=== PATIENT | female | born 1960 | race Caucasian/White ===

== ENCOUNTER 2017-07-22 20:54 | Emergency (ER) | payer MEDICARE, SELFPAY ==
[2017-07-22 20:54] VITALS: BP 117/71; PULSE 82; RESP 17; TEMP 36.7; O2SAT 94; BMI 27.3
--- NOTE | 2017-07-22 22:16 | EKG12_ITS ---
Test Reason : CP Blood Pressure : / mmHG Vent. Rate : 069 BPM Atrial Rate : 069 BPM P-R Int : 152 ms QRS Dur : 078 ms QT Int : 392 ms P-R-T Axes : 028 -04 019 degrees QTc Int : 420 ms Normal sinus rhythm Normal ECG Confirmed by JUAN ALBERTO DAVENPORT MD ([id number]), general expeditor MARGOTH ANTOINE ([id number]) on 07/25/2017 1:57:44 PM Referred By: Confirmed By:JUAN ALBERTO DAVENPORT MD
--- NOTE | 2017-07-22 22:16 | CT_ITS ---
STUDY: CT BRAIN WITHOUT CONTRAST REASON FOR EXAM: Female, 57 years old. Shortness of breath, dizziness, x2 days RADIATION DOSAGE (If Supplied By Facility): CTDIvol = ( 44.99 ) mGy, DLP = ( 779.24 ) mGycm TECHNIQUE: Transaxial CT imaging of the brain was performed without administration of intravenous contrast material. Individualized dose optimization techniques were used for this CT. COMPARISON: None. FINDINGS: Normal soft tissue structures. Normal calvarium. Normal size ventricles and extra-axial spaces for the patient's age. Normal white matter tracts of the cerebral hemispheres. Normal basal ganglia and thalami. Normal brainstem. Normal cerebellum. There is no intracranial hemorrhage. There are no findings of an acute ischemic infarction. Normal visualized paranasal sinuses. CT/Brain/Head without Contrast IMPRESSION: Normal unenhanced CT scan of the brain. Electronically Signed: Heladio Crook MD at 22:52 EDT , Service support ,
[2017-07-22] MEDS: Ondansetron ODT 4 MG Tablet PO (22:23)
[2017-07-22] MEDS: Meclizine HCl 25 MG Tablet PO (22:26)
[2017-07-22 22:32] LABS: Absolute Lymphocyte Count 1.99 X10^3/ul (0.83-4.51); Absolute Neutrophil Count 1.9 X10^3/uL (2.0-7.7); Basophil# 0.03 X10^3/uL; Basophil% 0.6 % (0-1); Eosinophil# 0.17 X10^3/uL; Eosinophils% 3.7 % (0-5); Hematocrit 36.9 % (37-47); Hemoglobin 12.2 g/dl (12.0-15.0); Lymphocyte # 1.99 X10^3/ul (4.0); Lymphocyte % 43.1 % (19-41); Mean Corp Hgb Conc 33.1 g/gl (32-36); Mean Corpuscular Hgb 28.4 pg (27.0-32.0); Mean Corpuscular Volume 85.8 fL (81-99); Monocyte# 0.54 X10^3/uL; Monocyte% 11.7 % (0-10); Neutrophil # 1.89 X10^3/uL (2.7-7.7); Neutrophil % 40.9 % (47-70); Platelet Count 218 K/mm3 (150-450); RBC Distribution Width SD 40.6 fl (35.1-43.9); White Blood Count 4.6 K/mm3 (4.4-11.0)
[2017-07-22 22:33] LABS: POSITIVE COUNT NO; POSITIVE DIFFERENTIAL NO; POSITIVE MORPHOLOGY NO
--- NOTE | 2017-07-22 22:33 | ED.VISSUMM ---
- ER Visit Summary Date of Service: 07/22/17 Chief Complaint: [Dizziness] History of Present Illness: The patient is a 57 F [who presents the emergency department complaining of dizziness. She states she has had 2 days of dizziness when she moves a certain way and then she gets nauseated. She has had mild associated shortness of breath as well. No cough no fever. She did hit her head on the corner of the car door 2 days ago right before the symptoms started. No numbness or tingling no speech difficulty. She has a history of vertigo but it was much worse than this. No chest pain. She is otherwise healthy. She does have chronic back problems but otherwise takes no medications. She has chronic swelling and pain in her left lower extremity which he states is unchanged] Physical Examination: [] Blood pressure 117/71 heart rate 82 respiratory rate 1794% on room air temperature 98.1 WN WD NAD PERRL EOMI MMM TMs clear NECK supple and nontender, no masses RRR no murmur rub or gallop, no peripheral edema, symmetric radial pulses CTAB no respiratory distress ABDOMEN is soft and nontender, normal bowel sounds, no distension, no rebound or guarding SKIN is warm and dry no rashes Symptoms are reproduced with movement of the head in either direction I am unable to assess for nystagmus as the patient closes her eyes repeatedly Alert and Oriented x3, CN II-XII in tact, no motor or sensory deficits, gait normal No lymphadenopathy Test Results: [] Emergency Department Course and Treatment: [She was given fluids meclizine and Zofran.] Treatment Plan: [] Disposition: [] Impression: [1. Head Injury 2. vertigo ] This note was generated with kooldiner dictation software. It may contain incorrect words, spelling, and punctuation that were not noted in review of the chart prior to signing ED Disposition - Plan for ED Patient: Chief Complaint: Dizziness Referrals: Elisha Penny MD [Primary Care Provider] -
[2017-07-22 22:43] LABS: D-Dimer Quantitative (DVT/PE) < 0.27 FEU/ug/m (0.27-0.49)
[2017-07-22 22:49] LABS: ALB/GLOB Ratio 1.2 RATIO (0.9-2.4); AST(SGOT) 13 U/L (15-37); Alanine Aminotransfer ALT/SGPT 16 U/L (13-56); Albumin, Serum 3.6 g/dL (3.2-5.0); Alkaline Phosphatase 111 U/L (45-117); Anion Gap 6 (5-15); BUN 17 mg/dL (7-18); BUN/Creat Ratio 28.8 RATIO (10-20); Calcium,Total 8.8 mg/dL (8.5-10.1); Chloride 108 mmol/L (98-107); Creatinine, Serum 0.59 mg/dL (0.55-1.02); EST Glomerular Filtration Rate 111 mL/min (>60); Est Glom Filt Rate - Afr Amer 135 mL/min (>60); Globulin 3.1 g/dL (2.2-4.2); Glucose 105 mg/dL (74-106); Potassium 3.7 mmol/L (3.5-5.1); Protein, Total 6.7 g/dL (6.4-8.2); Sodium Level 143 mmol/L (136-145)
[2017-07-22 23:05] VITALS: BP 118/82; PULSE 81; RESP 16; O2SAT 93
--- NOTE | 2017-07-22 23:13 | ED.DEP ---
ED Disposition - Plan for ED Patient: Chief Complaint: Dizziness Instructions: ED Vertigo Unspecified, ED Head Injury Closed Prescriptions: Ondansetron [Zofran Odt] 4 mg PO Q8H PRN PRN #10 tablet PRN Reason: Nausea Meclizine HCl [Antivert] 25 mg PO 4X/DAY PRN PRN #20 tablet PRN Reason: Dizziness Referrals: Elisha Penny MD [Primary Care Provider] - 3-5 Days
[2017-07-22 23:21] VITALS: BP 121/83; PULSE 75; RESP 16; O2SAT 97
== END 2017-07-22 23:26 | disposition home or self-care (01) ==
PROVIDERS: Emergency Provider Emergency Medicine; Family Provider Internal Medicine; PCP Internal Medicine
DX: S09.90XA Unspecified injury of head, initial encounter (principal); W22.8XXA Striking against or struck by other objects, initial encounter; Y93.9 Activity, unspecified; Y92.9 Unspecified place or not applicable; R42 Dizziness and giddiness; Z79.899 Other long term (current) drug therapy
CPT/HCPCS: 70450; 80053; 84484; 85025; 85379; 93005; 96360; 99285; J7040; A4216

== ENCOUNTER → 2017-09-25 14:24 | Outpatient (CLI) | payer MEDICARE, SELFPAY ==
--- NOTE | 2017-09-25 14:26 | BI_ITS ---
MAMMOGRAPHY - BILATERAL SCREENING REASON FOR EXAM: Female, 57 years old. Routine annual screening examination. PERTINENT HISTORY: Non-contributory. Remote right excisional breast biopsy. TECHNIQUE: Digital bilateral breast tricia (3D mammographic acquisition) in the CC and MLO projections. 2-D mediolateral oblique (MLO) and craniocaudad (CC) views of both breasts were obtained. CAD: Full Field Digital Mammography with Computer Added Detection was performed. COMPARISON: Comparison is made with prior outside examination dated September 11, 2016. FINDINGS: Breast Composition: There are scattered areas of fibroglandular density. There are no dominant masses or suspicious calcifications. Stable focal area of architectural distortion in the upper outer quadrant of the right breast in keeping with the history of prior excisional biopsy. No other significant abnormalities are identified. There has been no significant change since the prior study. BI/SCREENING MAMM (CAD), BILAT IMPRESSION: Stable bilateral screening mammogram. Yearly follow-up mammogram recommended. (A) ASSESSMENT CATEGORY: BIRADS Category 2: Benign. A letter regarding these results will be sent to the patient by the facility within 30 days. Approximately 10% of breast cancers are not detected by mammography. A normal mammogram should not delay biopsy of a clinically suspicious abnormality. [id number] Electronically Signed: Coleman Sutton MD at 15:47 EDT Tel [phone], Service support ,
--- NOTE | 2017-09-25 14:27 | US_ITS ---
STUDY: THYROID ULTRASOUND REASON FOR EXAM: Female, 57 years old. History of thyroid cancer, left lobe has been removed. TECHNIQUE: Ultrasound evaluation of the thyroid was performed with real-time and static john-scale imaging. COMPARISON: 08/26/2013 FINDINGS: RIGHT LOBE: The right lobe of the thyroid gland measures 4.5 x 1.5 x 1.1 cm. There is a homogeneous echotexture. There are 2 tiny hypoechoic/anechoic structures within the right lobe of the thyroid gland, potentially small colloid cysts. These measure no greater than 3 mm in dimension. LEFT LOBE: The left lobe of the thyroid gland has been removed. ISTHMUS: The isthmus measures 2 mm. There is a lymph node within the left thyroid fossa, measuring approximately 9 mm in length. US/Thyroid IMPRESSION: The left lobe of the thyroid gland has been resected. There are 2 tiny hypoechoic/anechoic nodules within the right lobe of the thyroid, which may represent colloid cyst. These measure no greater than 3 mm. Small lymph node in the left side of the neck measuring 9 mm. Electronically Signed: Rodney Humphries DO at 12:55 EDT Tel , Service support ,
--- NOTE | 2017-09-25 14:33 | BD_ITS ---
STUDY: DUAL ENERGY X-RAY ABSORPTIOMETRY / DXA REASON FOR EXAM: Female, 57 years old. The patient is postmenopausal. Loss of height. TECHNIQUE: Bone Mineral Density (BMD) measurements of lumbar spine and bilateral hips were obtained. COMPARISON: Comparison is made with prior study dated April 19, 2014. FINDINGS: Lumbar Spine (L1-L4): g/cm2 (0.765) / T-score (-3.5) / Z-score (-2.5) Findings are suggestive of osteoporosis with a high fracture risk. Left Femur Total: g/cm2 (0.664) / T-score (-2.7) / Z-score (-1.9) Left Femoral Neck: g/cm2 (0.653) / T-score (-2.8) / Z-score (-1.6) Right Femur Total: g/cm2 (0.628) / T-score (-3.0) / Z-score (-2.2) Right Femoral Neck: g/cm2 (0.641) / T-score (-2.9) / Z-score (-1.7) The T-Scores on the most recent prior examination were: Lumbar Spine (L1-L4): There has been improvement of bone density since the previous examination. Left Femur Total: which represents a worsening of 1.3%. Right Femur Total: which represents a worsening of 4.4%. BD/Dexa Bone Density Study IMPRESSION: The patient is considered osteoporotic as outlined below according to World Mani Organization (WHO) criteria with a high fracture risk. There has been worsening of bone density since the previous examination. Reference Information: The T-score is the number of standard deviations above or below the standard which is normal for young adults at their peak bone mineral density. The World Health Organization (WHO) interprets the T-scores as follows: Above -1 Normal bone density Between -1 and -2.5 Osteopenia Equal to / or below -2.5 Osteoporosis As a practical clinical guideline, osteopenia may be graded as follows: Mild -1 through -1.5 Moderate -1.6 through -2.0 Severe -2.1 through -2.4 The Z-score is the number of standard deviations above or below age-matched controls. A Z-score of less than -1.5 would be considered abnormal. References: 1. NIH Osteoporosis and Related Bone Diseases http://www.osteo.org 2. International Society for Clinical Densitometry http://www.iscd.org 3. National Osteoporosis Foundation http://www.nof.org Electronically Signed: Coleman Sutton MD at 8:59 EDT Tel [phone], Service support ,
== END ==
PROVIDERS: Family Provider Nurse Practitioner; PCP Nurse Practitioner; Visit Provider Nurse Practitioner
DX: M81.0 Age-related osteoporosis without current pathological fracture (principal); Z12.31 Encounter for screening mammogram for malignant neoplasm of breast; Z85.850 Personal history of malignant neoplasm of thyroid
CPT/HCPCS: 76536; 77063; 77067; 77080

== ENCOUNTER → 2017-09-30 12:35 | Outpatient (CLI) | payer MEDICARE, SELFPAY ==
[2017-10-01 09:02] LABS: Vitamin D,25 Hydroxy 54.2 ng/mL (29.95-100.01)
== END ==
PROVIDERS: Family Provider Nurse Practitioner; PCP Nurse Practitioner; Visit Provider Nurse Practitioner
DX: Z85.850 Personal history of malignant neoplasm of thyroid (principal)
CPT/HCPCS: 36415; 82306

== ENCOUNTER → 2017-10-07 09:47 | Outpatient (CLI) | payer MEDICARE, SELFPAY ==
--- NOTE | 2017-10-07 09:50 | RAD_ITS ---
STUDY: X-RAY - CERVICAL SPINE REASON FOR EXAM: Female, 57 years old. Neck pain, decreased range of motion TECHNIQUE: 4 view(s) of the cervical spine were obtained. An AP view is supplemented by lateral views in neutral, flexion, and extension. COMPARISON: None FINDINGS: There are degenerative changes of the anterior atlantoaxial articulation. Normal odontoid process. Normal cervical lordosis. There is multi-level endplate spondylosis. There is multi-level degenerative disc disease with multilevel disc space narrowing. This is greatest at C5-C6. There is decreased flexion. Surgical clips are seen in the neck suggesting previous thyroid surgery. RAD/Cerv Spine 4 or 5 Views IMPRESSION: Degenerative changes, as described above. Electronically Signed: Rodney Humphries DO at 12:22 EDT Tel , Service support ,
== END ==
PROVIDERS: Family Provider Nurse Practitioner; PCP Nurse Practitioner; Visit Provider Orthopaedic Surgery
DX: M47.892 Other spondylosis, cervical region (principal); M50.322 Other cervical disc degeneration at C5-C6 level
CPT/HCPCS: 72050

== ENCOUNTER → 2018-06-11 08:47 | Outpatient (CLI) | payer MEDICARE, SELFPAY ==
[2018-02-23 10:43] VITALS: BMI 26.9
== END ==
PROVIDERS: Family Provider Nurse Practitioner; PCP Nurse Practitioner; Referring Provider Nurse Practitioner; Visit Provider Nurse Practitioner
DX: I49.1 Atrial premature depolarization (principal); R07.89 Other chest pain
CPT/HCPCS: 93225; 93226

== ENCOUNTER 2018-09-07 14:27 | Observation (INO) | payer MEDICARE, SELFPAY ==
[2018-02-23 10:43] VITALS: BMI 26.9
[2018-09-07] VITALS (7 sets, daily range): BP systolic 101–132; BP diastolic 64–89; PULSE 67–93; RESP 12–18; TEMP 36.4–36.5; O2SAT 93–99; BMI 27.3; BMI 27.6
--- NOTE | 2018-09-07 16:19 | EKG12_ITS ---
Test Reason : CP Blood Pressure : / mmHG Vent. Rate : 080 BPM Atrial Rate : 080 BPM P-R Int : 154 ms QRS Dur : 086 ms QT Int : 404 ms P-R-T Axes : 030 009 019 degrees QTc Int : 465 ms Sinus rhythm with Premature supraventricular complexes Nonspecific ST abnormality Abnormal ECG Confirmed by NOY PUGA, BRENDON ([id number]), associate entertainment editor ELIAS ALVARADO ([id number]) on 09/09/2018 8:06:05 AM Referred By: ANAMARIA Confirmed By:BRENDON VILLAFUERTE MD
--- NOTE | 2018-09-07 16:20 | CT_ITS ---
STUDY: CTA OF THE BRAIN REASON FOR EXAM: Female, 58 years old. RADIATION DOSAGE (If Supplied By Facility): CTDIvol = ( 20.34 ) mGy, DLP = ( 3311.24 ) mGycm TECHNIQUE: CT angiography was performed with a multi-detector CT scanner. Data acquisition was obtained from the skull base through the vertex following intravenous administration of 100 IV Isovue 370. MIP images were reconstructed from the axial data set. Post-processing of the angiographic images was performed, with multiplanar reformation and 3D reconstruction. Individualized dose optimization techniques were used for this CT. COMPARISON: None. FINDINGS: Normal bilateral petrous carotid arteries. Normal right cavernous carotid artery with a normal supraclinoid bifurcation. Normal left cavernous carotid artery with a normal supraclinoid bifurcation. Normal right A1 segments of the anterior cerebral artery. Normal left A1 segments of the anterior cerebral artery. Normal intact anterior communicating artery (ACOM). Normal bilateral A2 segments of the anterior cerebral arteries. Normal right M1 and M2 segments of the middle cerebral arteries, with a normal M1 bifurcation. Normal left M1 and M2 segments of the middle cerebral arteries, with a normal M1 bifurcation. Normal right posterior communicating artery (PCOM). Normal left posterior communicating artery (PCOM). Normal bilateral vertebral arteries. Normal basilar artery with a normal basilar bifurcation. The visualized bilateral superior cerebellar (SCA) arteries are normal. Normal bilateral P1, P2 and visualized P3 segments of the posterior cerebral arteries. There is no demonstrated aneurysm of the the [place] of [place]. There is no demonstrated abnormality of the visualized brain. Brain parenchyma is intact without focal lesions, mass effect, midline shift, extra-axial brain tumor fluid collections, acute intracranial hemorrhage, hydrocephalus or herniation. The skull is intact. CT/CTA Head W/WO Contrast IMPRESSION: Normal the [place] without a demonstrated aneurysm or hemodynamically significant stenosis. Normal CT head. Electronically Signed: Anita Gonzalez, at 18:02 EDT Tel , Service support ,
--- NOTE | 2018-09-07 16:20 | CT_ITS ---
STUDY: CTA CHEST REASON FOR EXAM: Female, 58 years old. Chest pain RADIATION DOSAGE (If Supplied By Facility): CTDIvol = ( 20.34 ) mGy, DLP = ( 3311.24 ) mGycm TECHNIQUE: The examination was performed with the intravenous administration of 100 IV Isovue 370. Post-processing of the angiographic images was performed, with multiplanar reformation and 3D reconstruction. Individualized dose optimization techniques were used for this CT. COMPARISON: None. FINDINGS: Normal enhancement of the main pulmonary artery and right and left pulmonary arteries. Normal enhancement of the bilateral peripheral pulmonary arteries. There is no demonstrated pulmonary embolism. Normal thoracic aorta and visualized great vessels. There is no demonstrated aortic dissection. Normal heart and pericardium. Normal mediastinum. Normal hilar regions. Normal visualized trachea and bronchi. The lungs are well expanded. There is no consolidation. Bibasilar atelectasis is present. Normal pleura. Normal chest wall structures. Several partial compression fractures of the thoracic spine are visualized. There is a small hiatal hernia. CT/CTA Chest W/WO Contrast IMPRESSION: No evidence of pulmonary embolism. Bibasilar atelectasis. No consolidation. Small hiatal hernia. Several partial compression fractures of the thoracic spine. Electronically Signed: Peterson Nugent, at 18:02 EDT Tel , Service support ,
--- NOTE | 2018-09-07 16:20 | CT_ITS ---
STUDY: CT ABDOMEN AND PELVIS WITH CONTRAST REASON FOR EXAM: Female, 58 years old. Chest pain RADIATION DOSAGE (If Supplied By Facility): DLP = ( 3311.24 ) mGycm TECHNIQUE: Transaxial images were obtained from the dome of the diaphragm to the symphysis pubis without oral contrast. 100 ml of Isovue 370 contrast was administered. Sagittal and coronal images were reconstructed. Individualized dose optimization techniques were used for this CT. COMPARISON: None. FINDINGS: Bibasilar atelectasis is present. The visualized portions of the heart and pericardium are within normal limits. There are no calcified gallstones present. The liver is within normal limits. There are no suspicious hepatic lesions. The spleen is normal in size. The pancreas is within normal limits. The adrenal glands are within normal limits. There are no obstructing renal stones. There is no hydronephrosis. Bilateral renal cysts are present, the largest on the right measuring 1.5 cm. There is a small hiatal hernia. There is no bowel obstruction or inflammation. Colonic diverticulosis is present. The appendix is normal. The aorta is normal in caliber. There is no abdominal or pelvic free air, free fluid, fluid collection or lymphadenopathy. There are no destructive osseous lesions. Scattered partial compression fractures are present in the visualized thoracic and lumbar spine. CT/Abdomen/Pelvis W IV Cont ONLY IMPRESSION: No acute abdominal or pelvic pathology. Nonacute findings as described above. Electronically Signed: Peterson Nugent, at 18:09 EDT Tel , Service support ,
--- NOTE | 2018-09-07 16:20 | CT_ITS ---
STUDY: CTA NECK WITH CONTRAST REASON FOR EXAM: Female, 58 years old. Chest pain nausea vomiting RADIATION DOSAGE (If Supplied By Facility): CTDIvol = ( 20.34 ) mGy, DLP = ( 3311.24 ) mGycm TECHNIQUE: CT angiography with multi-detector data acquisition was performed from the aortic arch to the skull base following intravenous administration of 100 IV Isovue 370. MIP images were reconstructed from the axial data set. Post-processing of the angiographic images was performed, with multiplanar reformation and 3D reconstruction. Individualized dose optimization techniques were used for this CT. COMPARISON: None. FINDINGS: AORTIC ARCH: Normal visualized aortic arch. Normal origins of the brachiocephalic, left common carotid, and left subclavian arteries. RIGHT CAROTID ARTERIES: Normal right common carotid artery (CCA). Normal right common carotid bulb. Normal origin of the right internal carotid (ICA) artery without a hemodynamically significant stenosis. Normal visualized cervical portion of the right internal carotid artery. Normal origin of the right external carotid artery (ECA). LEFT CAROTID ARTERIES: Normal left common carotid artery (CCA). Normal left common carotid bulb. Normal origin of the left internal carotid (ICA) artery without a hemodynamically significant stenosis. Normal visualized cervical portion of the left internal carotid artery. Normal origin of the left external carotid artery (ECA). VERTEBRAL ARTERIES: Normal bilateral vertebral arteries. Left thyroid lobe is surgically resected. Right hemilobe is mildly heterogeneous and enlarged, without dominant lesion. There are degenerative changes in the cervical spine, age-appropriate. Jugular veins are patent. Airway is patent. CT/CTA Neck W/WO Contrast IMPRESSION: Normal bilateral cervical carotid and vertebral arteries. Electronically Signed: Anita Gonzalez, at 18:03 EDT Tel , Service support ,
[2018-09-07] MEDS: Metoclopramide 10 MG/2 ML Vial IV (16:29)
[2018-09-07] MEDS: DiphenhydrAMINE 50 MG/ML Syringe 25 MG IV (16:29)
[2018-09-07] MEDS: 0.9% Normal Saline 1,000 ML 1000 ML IV (16:29)
[2018-09-07 16:32] LABS: Absolute Lymphocyte Count 0.94 X10^3/ul (0.83-4.51); Basophil# 0.02 X10^3/uL; Basophil% 0.3 % (0-1); Eosinophil# 0.03 X10^3/uL; Eosinophils% 0.5 % (0-5); Hematocrit 41.3 % (37-47); Hemoglobin 13.6 g/dl (12.0-15.0); Lymphocyte # 0.94 X10^3/ul (4.0); Lymphocyte % 14.8 % (19-41); Mean Corp Hgb Conc 32.9 g/gl (32-36); Mean Corpuscular Hgb 27.5 pg (27.0-32.0); Mean Corpuscular Volume 83.4 fL (81-99); Mean Platelet Vol. 9.5 fl (6.2-12.0); Monocyte# 0.37 X10^3/uL; Monocyte% 5.8 % (0-10); Neutrophil # 4.97 X10^3/uL (2.7-7.7); Neutrophil % 78.4 % (47-70); Platelet Count 262 K/mm3 (150-450); RBC Distribution Width CV 12.8 % (11.6-14.6); RBC Distribution Width SD 38.3 fl (35.1-43.9); Red Blood Count 4.95 M/mm3 (4.2-5.4); White Blood Count 6.3 K/mm3 (4.4-11.0)
[2018-09-07 16:47] LABS: ALB/GLOB Ratio 1.2 RATIO (0.9-2.4); AST(SGOT) 13 U/L (15-37); Alanine Aminotransfer ALT/SGPT 19 U/L (13-56); Albumin, Serum 3.8 g/dL (3.2-5.0); Alkaline Phosphatase 117 U/L (45-117); Anion Gap 7 (5-15); BUN 15 mg/dL (7-18); BUN/Creat Ratio 22.9 RATIO (10-20); Chloride 108 mmol/L (98-107); Creatinine, Serum 0.65 mg/dL (0.55-1.02); EST Glomerular Filtration Rate 99 mL/min (>60); Est Glom Filt Rate - Afr Amer 119 mL/min (>60); Estimated Creatinine Clearance 91.74 ml/min; Globulin 3.2 g/dL (2.2-4.2); Glucose 105 mg/dL (74-106); Lipase 81 U/L (73-393); Potassium 3.5 mmol/L (3.5-5.1); Sodium Level 139 mmol/L (136-145)
[2018-09-07 16:58] LABS: POSITIVE COUNT NO; POSITIVE DIFFERENTIAL NO; POSITIVE MORPHOLOGY NO
--- NOTE | 2018-09-07 17:57 | ED.DCSUM_ITS ---
- ER Visit Summary Date of Service: 09/07/18 Chief Complaint: Headache, chest pain History of Present Illness: The patient is a 58 F presenting with headache, chest pain, palpitations. Her symptoms started early this morning. States the headache was gradual in onset. She has associated nausea and vomiting. She complains of midsternal chest pain. Also complains of palpitations. She had recent left foot surgery on Friday. She states that has been healing well. She also complains of diffuse abdominal pain. Denies fever. Physical Examination: Vitals are stable. Patient is afebrile. Alert no acute distress. HEENT exam is unremarkable. Neck is supple. No meningismus Lungs are clear and equal bilaterally. Heart is regular rate and rhythm. Abdomen is soft mild diffuse tenderness with no rebound or guarding Extremities left foot postop shoe, no erythema or warmth. Normal pulses Skin is warm and dry. No focal neurologic deficit. Remainder of exam is unremarkable. Emergency Department Course and Treatment: Patient was given Reglan, Benadryl. She was given aspirin. CBC, chemistries unremarkable. Liver lipase are normal. Troponin is negative. EKG is sinus rhythm rate of [address] changes. CTA head and neck show no acute process. CTA chest shows no evidence of PE. CT abdomen pelvis shows no acute process. Patient continues to have significant nausea and headache. She was given Phenergan and then was also given Zofran. She continues to have headache and was given morphine IV. Discussed with the hospitalist for admission. Disposition: Admission Impression: Intractable headache and nausea, chest pain This note was generated with [email or web address] dictation software. It may contain incorrect words, spelling, and punctuation that were not noted in review of the chart prior to signing ED Disposition - Plan for ED Patient: Disposition: Acute Care [facility]
[2018-09-07] MEDS: proMETHazine 25 MG/ML Syringe 6.25 MG IV (20:05)
[2018-09-07] MEDS: Morphine 4 MG/ML Syringe IV (20:05)
[2018-09-07] MEDS: Ondansetron 4 MG/2 ML Vial IV (20:06)
--- NOTE | 2018-09-07 20:45 | ED.RN ---
DR. CONRAD MADE AWARE OF PATIENT'S ALL ROUND LOGGER ALARMING AN IRREGULAR HEART RATE. RHYTHM STRIP PRINTED OUT AND SHOWED TO THE DOCTOR.
[2018-09-07] MEDS: HYDROmorphone 0.5 MG/0.5 ML SYRINGE IV (21:04)
[2018-09-07] MEDS: Aspirin 325 MG Tablet PO (21:04)
--- NOTE | 2018-09-07 21:12 | PCM.HP.STD ---
Problem List (1) Migraine Status: Acute Qualifiers: Migraine type: unspecified Status migrainosus presence: with status migrainosus Intractability: intractable Qualified Code(s): G43.911 - Migraine, unspecified, intractable, with status migrainosus (2) Chest pain Status: Acute Qualifiers: Chest pain type: unspecified Qualified Code(s): R07.9 - Chest pain, unspecified (3) Thyroid cancer Status: Chronic (4) Hypothyroidism Status: Chronic Qualifiers: Hypothyroidism type: acquired Qualified Code(s): E03.9 - Hypothyroidism, unspecified (5) Anxiety and depression Status: Chronic (6) Osteoarthritis Status: Chronic Qualifiers: Osteoarthritis location: hip Osteoarthritis type: unspecified Laterality: left Qualified Code(s): M16.12 - Unilateral primary osteoarthritis, left hip (7) Vitamin D deficiency Status: Chronic History of Present Illness Date of Admission: 09/07/18 Chief Complaint: Chest pain, headache, abdominal complaint, N/V The patient is a 58 y/o F w/ PMHx: OA, Hypothyroidism, Hx Thyroid CA s/p resection, Anxiety and Depression, Hx Tobacco use who presents to the [facility] ED on 09/07/18 with history of intractable headache, diffuse, gradual onset today associated with light and sound sensitivity with intractable ongoing nausea and emesis with noted additionally since intractable N/V ongoing severe diffuse abdominal pain, initially 10/10 but improved now 0/10 with also mid sternal chest pain, burning sensation w/ palpitations, lasts secondary to minutes, worse with episodes N/V, initially 10/10 but improved now 0/10. She does note that her headache is primarily in the frontal and maxillary regions and states that is constant, not specifically throbbing but rates it severe, 10 out of 10. She did have recent hammertoe surgery by Dr. Mukherjee and notes she can walk on the foot when she has her podiatric shoe in place, otherwise no other specific parameters. Work-up in the ED included T 97.7, heart rate 91, BP 130/76, respiratory rate 18, 98% on room air, CBC with WBC 6.3, hemoglobin 13.6, platelet 262 without market shift, CMP not marked appearing, lipase 81, troponin less than 0.015, EKG sinus rhythm with no acute evidence of ischemia, CT abdomen pelvis with no acute abdominal or pelvic pathology, CTPA chest w/ no evidence of pulmonary emboli, bibasilar atelectasis, no consolidation, small hiatal hernia, several partial compression fractures of thoracic spine, CTA Head w/ normal [place] without demonstrated aneurysm or hemodynamically significant stenosis, CTA neck w/ normal bilateral cervical carotid and vertebral arteries, CT head normal. In the ED patient ministered normal saline, serial doses of Phenergan, Zofran, morphine, Reglan, Dilaudid as well as full-strength aspirin 325 mg p.o. x1. Past Medical History Past Medical History (Chronic Problems): Chronic Problems (Last Updated 02/23/18 @ 10:47 by Meghna Monahan) Thyroid cancer (Chronic) Hypothyroidism (Chronic) Anxiety and depression (Chronic) Osteoarthritis (Chronic) Osteoporosis (Chronic) Vitamin D deficiency (Chronic) Medical History: Medical History (Last Updated 02/23/18 @ 10:47 by Meghna Monahan) Back pain M54.9 Cancer C80.1 H/O: hysterectomy Z90.710 Knee pain M25.569 Shoulder pain M25.519 Thyroid disease E07.9 Allergies No Known Allergies Allergy (Verified 09/07/18 14:29) Home Medications: Ambulatory Orders Medication Instructions Recorded Levothyroxine [Synthroid] 75 mcg PO DAILY 09/22/15 Paroxetine HCl [Paxil] 40 mg PO DAILY 09/22/15 Meloxicam [Mobic] 7.5 mg PO DAILY 01/14/16 Albuterol Sulfate [Albuterol 2 puff INHALATION PRN PRN 09/07/18 Sulfate Hfa] Gabapentin [Neurontin] 300 mg PO TID 09/07/18 Loratadine 10 mg PO DAILY 09/07/18 Surgical History: - - Thyroid partial resection, tonsillectomy, hysterectomy, right breast biopsy, right upper extremity skin cancer lesion removal. 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 Denies: Chills, Fever, Weight Change HEENT: Reports: Head Aches. Denies: Sinus Congestion, Sinus Drainage Cardiovascular: Reports: Chest Pain. Denies: Palpitations Respiratory: Denies: Cough, Shortness of breath at rest, Sputum production Gastrointestinal: Reports: Abdominal Pain, Nausea, Vomiting Genitourinary: Denies: Dysuria Musculoskeletal: Reports: Back Pain, Joint Pain. Denies: Joint Tenderness Skin: Denies: Rash, Wounds Neurological: Denies: Numbness, Tingling, Focal weakness Psychiatric: Reports: Anxiety, Depression. Denies: Homicidal Ideations, Suicidal Ideations Hematologic/ Lymphatic: Denies: Easy Bruising, Easy Bleeding VTE Information - Inpt Only VTE Present on Admission: No VTE Mechan Device Prophylaxis: SCD's VTE Pharm Prophylaxis ordered?: Yes Patient Problems: Active and Suspected Problems (Last Updated 02/23/18 @ 10:47 by Meghna Monahan) Migraine (Acute) Chest pain (Acute) Subjective: Seated upright in the ED bed, laying on her side, room is dark, notes ongoing headache with sound and light sensitivity. Objective: Physical Examination: General: awake, alert, oriented x 3 and cooperative, seated upright, laying on her side in ED bed, room is dark, remains sound and light sensitive. Skin: normal color, turgor, no icterus, cyanosis. HEENT: AT/NC, EOMI, PERRLA, dry MM, no carotid bruits or JVD noted. Lungs: CTA bilaterally, moderate effort, moderate decrease BL bases, no rales, ronchi or wheezing. Heart: Regular rate and rhythm; no gallop, rub audible, no reproducible chest discomfort with palpation. Abdomen: soft, currently improved, NTTP, ND, normal BS, no HSM. Extremities: no cyanosis, clubbing, or edema. Neurological: patient awake, alert, oriented x 3; cognitive function intact; pupils equally reactive to light and accomodation; cranial nerves II-XII grossly normal, moving all 4 extremities, no focal deficits, strength severely global decrease secondary to acute presentation, remains sound and light sensitive, ongoing headache, some discomfort with palpation of the temporal and maxillary regions. Psychiatric: affect appears fatigued, flat, no acute evidence of depressive or anxiety feelings. - Physical Exam Vital Signs Temp Pulse Resp BP Pulse Ox 97.7 F L 85 14 114/64 93 09/07/18 14:29 09/07/18 21:07 09/07/18 21:07 09/07/18 21:07 09/07/18 21:07 Oxygen Delivery Method Room Air Weight: 175 lb Body Mass Index (BMI) 27.3 Laboratory Tests Past 24 Hrs 09/07/18 09/07/18 15:41 15:41 WBC 6.3 RBC 4.95 Hgb 13.6 Hct 41.3 MCV 83.4 MCH 27.5 MCHC 32.9 RDW 12.8 RDW Differential 38.3 Plt Count 262 MPV 9.5 Immature Gran % (Auto) 0.200 Neut % (Auto) 78.4 H Lymph % (Auto) 14.8 L [place] % (Auto) 5.8 Eos % (Auto) 0.5 Baso % (Auto) 0.3 Absolute Neuts (auto) 5.0 Absolute Lymphs (auto) 0.94 Total Counted Not Reportable Sodium 139 Potassium 3.5 Chloride 108 H Carbon Dioxide 24.0 Anion Gap 7 BUN 15 Creatinine 0.65 Estim Creat Clear Calc 91.74 Est GFR (MDRD) Af Amer 119 Est GFR (MDRD) Non-Af 99 BUN/Creatinine Ratio 22.9 H Glucose 105 Calcium 9.0 Total Bilirubin 0.40 AST 13 L ALT 19 Alkaline Phosphatase 117 Troponin I < 0.015 Total Protein 7.0 Albumin 3.8 Globulin 3.2 Albumin/Globulin Ratio 1.2 Lipase 81 Assessment/Plan All Active Problems (Last Updated 02/23/18 @ 10:47 by Meghna Monahan) Migraine (Acute) Chest pain (Acute) Facial ringworm (Acute) Compression fracture of L5 lumbar vertebra (Acute) The patient is a 58 y/o F w/ PMHx: OA, Hypothyroidism, Hx Thyroid CA s/p resection, Anxiety and Depression, Hx Tobacco use who presents to the [facility] ED on 09/07/18 with history of intractable headache, diffuse, gradual onset today with nausea and emesis w/ associated with light and sound sensitivity. (1) Suspected Acute Persistent Intractable Migraine: Will admit to PCU given concurrent atypical chest pain, hold narcotic therapy give this may exacerbate migraine, initiate IV VPA 500mg Q6 hours, IV Decadron 4mg Q6 hours, IV Toradol 30mg Q6 hours prn and PO Neurontin 300mg TID with meals. If patient WILCOX does not improve will proceed with MRI of brain with MRA of head. Neurology consulted, pending. (3) Atypical Chest Pain: EKG in ED no acute evidence of ischemia, CTPA not marked appearing, initial trop normal x 1. Given atypical presentation, less suspicious for cardiac etiology. To be cautious, will place on a monitored bed to assure no acute myocardial infarction with serial cardiac enzymes and EKGs. ASA, NG. (4) Recent L Hammertoe Surgery: Recent L foot surgery per Dr. Mukherjee, WBAT w/ boot in place, continue to follow-up as previously arranged per Dr. Mukherjee. (5) Anxiety and Depression: Not on regimen, encourage outpatient evaluation and treatment. (6) Hypothyroidism: Hx Thyroid CA s/p resection. Continue home synthroid regimen, TSH and FT4 pending. (7) Allergic Rhintis: Continue home loratadine regimen. (8) GERD: Famotidine. (9) DVT Prophylaxis: SCDs, lovenox. Code Visit OBSV E&M: [id number] Initial observation care L3
--- NOTE | 2018-09-07 23:24 | EKG12_ITS ---
Test Reason : AM EKG Blood Pressure : / mmHG Vent. Rate : 080 BPM Atrial Rate : 080 BPM P-R Int : 150 ms QRS Dur : 088 ms QT Int : 400 ms P-R-T Axes : 031 011 016 degrees QTc Int : 461 ms Normal sinus rhythm Nonspecific ST abnormality Abnormal ECG Confirmed by NOY PUGA, BRENDON ([id number]), science editor ELIAS ALVARADO ([id number]) on 09/09/2018 8:12:21 AM Referred By: ARIANA Confirmed By:BRENDON VILLAFUERTE MD
[2018-09-08] VITALS (10 sets, daily range): BP systolic 108–128; BP diastolic 63–80; PULSE 77–103; RESP 16–18; TEMP 36.6–37; O2SAT 92–95; BMI 27.7
[2018-09-08 00:09] LABS: Magnesium 2.1 mg/dL (1.6-2.6); T4 Free Direct 0.95 ng/dL (0.76-1.46); Thyroid Stim Hormone (TSH) 1.65 uIU/mL (0.358-3.74)
[2018-09-08] MEDS: 0.9% Normal Saline 1,000 ML 125 ML IV ×2 (00:59→10:54)
[2018-09-08] MEDS: Gabapentin 300 MG Capsule PO ×4 (01:00→17:19)
[2018-09-08] MEDS: Famotidine 20 MG Tablet PO ×3 (01:01→23:03)
[2018-09-08] MEDS: dexAMETHasone 4 MG/ML Vial IV ×5 (01:01→23:00)
[2018-09-08] MEDS: Ketorolac 15 MG/ML Vial 30 MG IV ×5 (01:01→23:00)
[2018-09-08 05:41] LABS: Absolute Lymphocyte Count 0.81 X10^3/ul (0.83-4.51); Basophil# 0.02 X10^3/uL; Basophil% 0.3 % (0-1); Eosinophil# 0.03 X10^3/uL; Eosinophils% 0.5 % (0-5); Hematocrit 39.5 % (37-47); Hemoglobin 12.9 g/dl (12.0-15.0); Lymphocyte # 0.81 X10^3/ul (4.0); Lymphocyte % 13.5 % (19-41); Mean Corp Hgb Conc 32.7 g/gl (32-36); Mean Corpuscular Hgb 27.6 pg (27.0-32.0); Mean Corpuscular Volume 84.4 fL (81-99); Mean Platelet Vol. 9.3 fl (6.2-12.0); Monocyte# 0.13 X10^3/uL; Monocyte% 2.2 % (0-10); Neutrophil % 83.3 % (47-70); Platelet Count 249 K/mm3 (150-450); RBC Distribution Width CV 12.8 % (11.6-14.6); RBC Distribution Width SD 39.1 fl (35.1-43.9); Red Blood Count 4.68 M/mm3 (4.2-5.4)
[2018-09-08 05:43] LABS: POSITIVE COUNT NO; POSITIVE DIFFERENTIAL NO; POSITIVE MORPHOLOGY NO
--- NOTE | 2018-09-08 05:55 | EKG12_ITS ---
Test Reason : CP ADMISSION Blood Pressure : / mmHG Vent. Rate : 073 BPM Atrial Rate : 073 BPM P-R Int : 152 ms QRS Dur : 086 ms QT Int : 408 ms P-R-T Axes : 044 015 021 degrees QTc Int : 449 ms Sinus rhythm with Premature atrial complexes Nonspecific ST abnormality Abnormal ECG Confirmed by NOY PUGA, BRENDON ([id number]), content editor ELIAS ALVARADO ([id number]) on 09/09/2018 8:14:47 AM Referred By: ARIANA Confirmed By:BRENDON VILLAFUERTE MD
[2018-09-08 05:59] LABS: ALB/GLOB Ratio 1.1 RATIO (0.9-2.4); AST(SGOT) 12 U/L (15-37); Alanine Aminotransfer ALT/SGPT 17 U/L (13-56); Albumin, Serum 3.3 g/dL (3.2-5.0); Alkaline Phosphatase 107 U/L (45-117); Anion Gap 8 (5-15); BUN 11 mg/dL (7-18); BUN/Creat Ratio 15.8 RATIO (10-20); Calcium,Total 8.3 mg/dL (8.5-10.1); Chloride 110 mmol/L (98-107); Cholesterol 245 mg/dL (200); EST Glomerular Filtration Rate 92 mL/min (>60); Est Glom Filt Rate - Afr Amer 111 mL/min (>60); Estimated Creatinine Clearance 85.19 ml/min; Glucose 109 mg/dL (74-106); High Density Lipoprotein 53 mg/dL; Potassium 3.9 mmol/L (3.5-5.1); Protein, Total 6.3 g/dL (6.4-8.2); Sodium Level 143 mmol/L (136-145); Triglycerides 131 mg/dL; Very Low Density Lipoprotein 26 mg/dL (5-40)
[2018-09-08] MEDS: 0.9% NaCl Peripheral Flush Adult/Peds IV ×5 (06:12→17:22)
[2018-09-08] MEDS: Levothyroxine 75 MCG Tablet PO (06:13)
[2018-09-08] MEDS: Aspirin E.C. 81 MG Tablet PO (08:48)
[2018-09-08] MEDS: Loratadine 10 MG Tablet PO (08:48)
[2018-09-08] MEDS: Paroxetine 20 MG Tablet 40 MG PO (08:50)
[2018-09-08] MEDS: Acetaminophen 325 MG Tablet 650 MG PO (08:59)
--- NOTE | 2018-09-08 09:07 | CON.PCM_ITS ---
Reason for Consult Reason for Consultation: headache History of Present Illness: The patient is a 58 year old F [] Past Medical History Past Medical History (Chronic Problems): Chronic Problems (Last Updated 02/23/18 @ 10:47 by Meghna Monahan) Thyroid cancer (Chronic) Hypothyroidism (Chronic) Anxiety and depression (Chronic) Osteoarthritis (Chronic) Osteoporosis (Chronic) Vitamin D deficiency (Chronic) Medical History: Medical History (Last Updated 02/23/18 @ 10:47 by Meghna Monahan) Back pain M54.9 Cancer C80.1 H/O: hysterectomy Z90.710 Knee pain M25.569 Shoulder pain M25.519 Thyroid disease E07.9 Allergies No Known Allergies Allergy (Verified 09/07/18 14:29) Home Medications: Ambulatory Orders Medication Instructions Recorded Levothyroxine [Synthroid] 75 mcg PO DAILY 09/22/15 Paroxetine HCl [Paxil] 40 mg PO DAILY 09/22/15 Meloxicam [Mobic] 7.5 mg PO DAILY 01/14/16 Albuterol Sulfate [Albuterol 2 puff INHALATION PRN PRN 09/07/18 Sulfate Hfa] Gabapentin [Neurontin] 300 mg PO TID 09/07/18 Loratadine 10 mg PO DAILY 09/07/18 Surgical History: - - Thyroid partial resection, tonsillectomy, hysterectomy, right breast biopsy, right upper extremity skin cancer lesion removal. Psychiatric History: Anxiety, Depression DIRECTOR E LEARNING History: No pertinent DIRECTOR E LEARNING history Lives: Alone Smoking Status: Former smoker Tobacco Use: Non-smoker Alcohol: None Drugs: None - *Family History Maternal History Items: Cancer, Diabetes, Heart Disease Paternal History Items: Cancer, Diabetes, Heart Disease Patient Problems: Active and Suspected Problems (Last Updated 02/23/18 @ 10:47 by Meghna Monahan) Migraine (Acute) Chest pain (Acute) - Physical Exam Vital Signs Temp Pulse Resp BP Pulse Ox 36.9 C 83 16 112/73 92 09/08/18 08:40 09/08/18 08:40 09/08/18 08:40 09/08/18 08:40 09/08/18 08:40 Oxygen Delivery Method Room Air Weight: 80.1 kg Body Mass Index (BMI) 27.6 Intake and Output for Last 24 Hours 09/06/18 09/07/18 09/08/18 23:59 23:59 23:59 Intake Total 557 / 557 Balance 557 / 557 Laboratory Tests Past 24 Hrs 09/07/18 09/07/18 09/07/18 15:41 15:41 23:35 WBC 6.3 RBC 4.95 Hgb 13.6 Hct 41.3 MCV 83.4 MCH 27.5 MCHC 32.9 RDW 12.8 RDW Differential 38.3 Plt Count 262 MPV 9.5 Immature Gran % (Auto) 0.200 Neut % (Auto) 78.4 H Lymph % (Auto) 14.8 L [place] % (Auto) 5.8 Eos % (Auto) 0.5 Baso % (Auto) 0.3 Absolute Neuts (auto) 5.0 Absolute Lymphs (auto) 0.94 Total Counted Not Reportable Sodium 139 Potassium 3.5 Chloride 108 H Carbon Dioxide 24.0 Anion Gap 7 BUN 15 Creatinine 0.65 Estim Creat Clear Calc 91.74 Est GFR (MDRD) Af Amer 119 Est GFR (MDRD) Non-Af 99 BUN/Creatinine Ratio 22.9 H Glucose 105 Calcium 9.0 Magnesium 2.1 Total Bilirubin 0.40 AST 13 L ALT 19 Alkaline Phosphatase 117 Troponin I < 0.015 < 0.015 Total Protein 7.0 Albumin 3.8 Globulin 3.2 Albumin/Globulin Ratio 1.2 Triglycerides Cholesterol LDL Cholesterol VLDL Cholesterol HDL Cholesterol Lipase 81 TSH 1.65 Free T4 0.95 09/08/18 09/08/18 09/08/18 02:25 05:16 05:16 WBC 6.0 RBC 4.68 Hgb 12.9 Hct 39.5 MCV 84.4 MCH 27.6 MCHC 32.7 RDW 12.8 RDW Differential 39.1 Plt Count 249 MPV 9.3 Immature Gran % (Auto) 0.200 Neut % (Auto) 83.3 H Lymph % (Auto) 13.5 L [place] % (Auto) 2.2 Eos % (Auto) 0.5 Baso % (Auto) 0.3 Absolute Neuts (auto) 5.0 Absolute Lymphs (auto) 0.81 L Total Counted Not Reportable Sodium 143 Potassium 3.9 Chloride 110 H Carbon Dioxide 25.0 Anion Gap 8 BUN 11 Creatinine 0.70 Estim Creat Clear Calc 85.19 Est GFR (MDRD) Af Amer 111 Est GFR (MDRD) Non-Af 92 BUN/Creatinine Ratio 15.8 Glucose 109 H Calcium 8.3 L Magnesium Total Bilirubin 0.50 AST 12 L ALT 17 Alkaline Phosphatase 107 Troponin I < 0.015 < 0.015 Total Protein 6.3 L Albumin 3.3 Globulin 3.0 Albumin/Globulin Ratio 1.1 Triglycerides 131 Cholesterol 245 H LDL Cholesterol 166 H VLDL Cholesterol 26 HDL Cholesterol 53 Lipase TSH Free T4 Assessment/Plan All Active Problems (Last Updated 02/23/18 @ 10:47 by Meghna Monahan) Migraine (Acute) Chest pain (Acute) Facial ringworm (Acute) Compression fracture of L5 lumbar vertebra (Acute)
[2018-09-08] MEDS: Enoxaparin 40 MG/0.4 ML Syringe SC (10:54)
[2018-09-08] MEDS: Amitriptyline 25 MG Tablet 50 MG PO ×2 (12:25→23:02)
--- NOTE | 2018-09-08 18:55 | MRI_ITS ---
STUDY: MRI BRAIN WITHOUT CONTRAST REASON FOR EXAM: Female, 58 years old. Severe headache and chest palpitations TECHNIQUE: Standardized multiplanar fat and water weighted pulse sequences were obtained. COMPARISON: CT 07/22/2017, CTA 09/07/2018 FINDINGS: Normal size of the ventricles and extra-axial spaces for the patient's age. There are a limited number of small white matter hyperintensities, distributed throughout the deep white matter tracts of the cerebral hemispheres, consistent with mild chronic white matter ischemic changes. Normal bilateral basal ganglia. Normal thalami. There is no extra-axial fluid accumulation. Normal flow voids within the major intracranial circulation suggesting patency by spin echo criteria. Normal sella turcica, pituitary gland, infundibular stalk, optic chiasm and hypothalamus. Normal tectal plate and pineal gland. Normal midbrain, hiram and medulla. Normal cerebellum. Normal basal cisterns. Normal bilateral temporal bones. Normal bilateral internal auditory canals. No demonstrated orbital abnormality, within the constraints of a routine brain study. Normal visualized paranasal sinuses. Normal calvarium and skull base. Normal visualized soft tissue structures. Normal visualized upper cervical spine. MRI/Brain without Contrast IMPRESSION: No evidence of acute infarct or hemorrhage. Mild microangiopathic white matter disease. Electronically Signed: Christopher Steinberg MD at 20:13 EDT Tel , Service support ,
--- NOTE | 2018-09-08 20:16 | PCM.PROGNOTE ---
Patient Problems: Active and Suspected Problems (Last Updated 02/23/18 @ 10:47 by Meghna Monahan) Migraine (Acute) Chest pain (Acute) Subjective: Patient was seen and examined today, I have reviewed neurology's note on her today, neurology told the patient they were going to order an MRI of the brain but none was ordered so I have ordered an MRI of the brain. Patient states her headache is 7 out of 10 in intensity. - Physical Exam General: Alert, Oriented x3, Cooperative, No apparent distress HEENT: Atraumatic, PERRLA, EOMI, Normocephalic Neck: Supple, No JVD, Trachea Midline, Thyroid Normal Size and Texture Lungs: Clear to auscultation, Normal air movement, No rhonchi, No wheeze, No rales Cardiovascular: Regular rate, Regular Rhythm, Normal S1, Normal S2, No murmurs Abdomen: Bowel Sounds Present, Soft, Non Tender, Non-Distended Extremities: No clubbing, No cyanosis, No edema, Capillary Refill Less than 3 Seconds Skin: No rashes, No breakdown Musculoskeletal: No Tenderness to Palpation of Joints or Extremities Neurological: Cranial nerves II-XII grossly intact, Neuro grossly intact, Sensory exam intact to light touch and pain, Coordination normal Psych/Mental Status: Normal Affect, Appropriate, Alert and oriented to time, place, person, mood and affect Vital Signs Temp Pulse Resp BP Pulse Ox 98.2 F 80 16 128/72 H 92 09/08/18 16:28 09/08/18 18:14 09/08/18 16:28 09/08/18 16:28 09/08/18 16:28 Oxygen Delivery Method Room Air Weight: 80.1 kg Body Mass Index (BMI) 27.6 Intake and Output for Last 24 Hours 09/06/18 09/07/18 09/08/18 23:59 23:59 23:59 Intake Total 2046 Balance 2046 Laboratory Tests Past 24 Hrs 09/07/18 09/08/18 09/08/18 23:35 02:25 05:16 WBC RBC Hgb Hct MCV MCH MCHC RDW RDW Differential Plt Count MPV Immature Gran % (Auto) Neut % (Auto) Lymph % (Auto) [place] % (Auto) Eos % (Auto) Baso % (Auto) Absolute Neuts (auto) Absolute Lymphs (auto) Total Counted Sodium 143 Potassium 3.9 Chloride 110 H Carbon Dioxide 25.0 Anion Gap 8 BUN 11 Creatinine 0.70 Estim Creat Clear Calc 85.19 Est GFR (MDRD) Af Amer 111 Est GFR (MDRD) Non-Af 92 BUN/Creatinine Ratio 15.8 Glucose 109 H Calcium 8.3 L Magnesium 2.1 Total Bilirubin 0.50 AST 12 L ALT 17 Alkaline Phosphatase 107 Troponin I < 0.015 < 0.015 < 0.015 Total Protein 6.3 L Albumin 3.3 Globulin 3.0 Albumin/Globulin Ratio 1.1 Triglycerides 131 Cholesterol 245 H LDL Cholesterol 166 H VLDL Cholesterol 26 HDL Cholesterol 53 TSH 1.65 Free T4 0.95 09/08/18 05:16 WBC 6.0 RBC 4.68 Hgb 12.9 Hct 39.5 MCV 84.4 MCH 27.6 MCHC 32.7 RDW 12.8 RDW Differential 39.1 Plt Count 249 MPV 9.3 Immature Gran % (Auto) 0.200 Neut % (Auto) 83.3 H Lymph % (Auto) 13.5 L [place] % (Auto) 2.2 Eos % (Auto) 0.5 Baso % (Auto) 0.3 Absolute Neuts (auto) 5.0 Absolute Lymphs (auto) 0.81 L Total Counted Not Reportable Sodium Potassium Chloride Carbon Dioxide Anion Gap BUN Creatinine Estim Creat Clear Calc Est GFR (MDRD) Af Amer Est GFR (MDRD) Non-Af BUN/Creatinine Ratio Glucose Calcium Magnesium Total Bilirubin AST ALT Alkaline Phosphatase Troponin I Total Protein Albumin Globulin Albumin/Globulin Ratio Triglycerides Cholesterol LDL Cholesterol VLDL Cholesterol HDL Cholesterol TSH Free T4 Medical Necessity - Tobacco Use Smoking Status: Former smoker Tobacco Use: Non-smoker Assessment/Plan All Active Problems (Last Updated 02/23/18 @ 10:47 by Meghna Monahan) Migraine (Acute) Chest pain (Acute) Facial ringworm (Resolved) #1 acute cephalgia-etiology unclear, possibly secondary to migraine-patient has no previous history of migraine cephalgia however, MRI of the brain was ordered for tomorrow, neurology has adjusted her medications #2 hypothyroidism #3 depression #4 osteoporosis #5 history of previous compression fracture of L5 secondary to osteoporosis Code Visit OBSV E&M: 77668 Subsequent observation care L3
[2018-09-09 00:22] VITALS: BP 116/63; PULSE 82; RESP 16; TEMP 36.7; O2SAT 97
[2018-09-09 01:21] VITALS: BP 116/63; PULSE 82; RESP 16; TEMP 36.7; O2SAT 97
[2018-09-09] MEDS: Levothyroxine 75 MCG Tablet PO (05:52)
[2018-09-09] MEDS: 0.9% Normal Saline 1,000 ML 125 ML IV (05:53)
[2018-09-09] MEDS: dexAMETHasone 4 MG/ML Vial IV ×2 (05:57→11:45)
[2018-09-09 07:37] VITALS: O2SAT 97
[2018-09-09 08:29] VITALS: BP 122/75; PULSE 70; RESP 16; TEMP 36.9; O2SAT 97
[2018-09-09] MEDS: Famotidine 20 MG Tablet PO (09:43)
[2018-09-09] MEDS: Gabapentin 300 MG Capsule PO ×2 (09:43→11:48)
[2018-09-09] MEDS: Aspirin E.C. 81 MG Tablet PO (09:43)
[2018-09-09] MEDS: Loratadine 10 MG Tablet PO (09:43)
[2018-09-09] MEDS: Enoxaparin 40 MG/0.4 ML Syringe SC (09:44)
[2018-09-09] MEDS: Paroxetine 20 MG Tablet 40 MG PO (09:44)
--- NOTE | 2018-09-09 11:00 | CASEMGMT ---
RN CM NOTE: To room to talk with pt/FABIAN form reviewed. Pt denies having any questions. FABIAN form signed by pt, copy made and placed on chart, and original given back to pt. Pt made aware if she has any questions to ask for CM. Pt voices understanding. Ron BROUSSARDN RN CM
--- NOTE | 2018-09-09 11:49 | PCM.DC ---
- Discharge Diagnoses Current Active Problems: Current Active and Chronic Problems (Last Updated 02/23/18 @ 10:47 by Meghna Monahan) Migraine (Acute) Chest pain (Acute) You will use the following diet at home:: No restrictions Your food should be the consistency of: Regular Your liquids should be the consistency of: Regular/Thin Discharge Activity: Return to Normal Activity Weight Bearing Status: Full weight bearing Allergies/Adverse Reactions: Allergies No Known Allergies Allergy (Verified 09/07/18 14:29) Medications to take at Discharge Levothyroxine [Synthroid] 75 mcg PO DAILY 09/22/15 Paroxetine HCl [Paxil] 40 mg PO DAILY 09/22/15 Meloxicam [Mobic] 7.5 mg PO DAILY 01/14/16 Albuterol Sulfate [Albuterol Sulfate Hfa] 2 puff INHALATION PRN PRN 09/07/18 Gabapentin [Neurontin] 300 mg PO TID 09/07/18 Loratadine 10 mg PO DAILY 09/07/18 Amitriptyline HCl [Elavil] 50 mg PO QHS #60 tab 09/09/18 The following prescriptions were given: Amitriptyline HCl [Elavil] 50 mg PO QHS #60 tab Transmission Status: Pending to [facility] Primary Care Physician: Jessica May, COLETTE-C [Primary Care Provider] - Please follow up with your Primary Care Physician in: in 1-2 weeks Test Results: Test results from this visit will be discussed in further detail at your follow-up appointment, if applicable.
[2018-09-09 15:00] VITALS: BP 125/78; PULSE 81; RESP 18; TEMP 36.8; O2SAT 99
--- NOTE | 2018-09-10 08:50 | PCM.DC.SUM ---
Discharge Date and Diagnosis Date of Admission: 09/07/18 Date of Discharge: 09/09/18 - Primary Discharge Diagnosis 1 acute cephalgia-etiology unclear #2 hypothyroidism #3 depression #4 osteoporosis #5 history of previous compression fracture of L5 secondary to osteoporosis - Secondary Discharge Diagnosis Chronic Problems (Last Updated 02/23/18 @ 10:47 by Meghna Monahan) Thyroid cancer (Chronic) Hypothyroidism (Chronic) Anxiety and depression (Chronic) Osteoarthritis (Chronic) Osteoporosis (Chronic) Vitamin D deficiency (Chronic) Hospital Course and Treatment Operations: None Procedures: None Summary of Care Provided: The patient is a 58 year old F was seen in the emergency room at [facility] with a chief complaint of cephalgia, she also complained of nausea and some vague chest discomfort. Patient was given Phenergan and Zofran in the emergency room, work-up in the emergency room included a CTA of the head and neck which showed no acute process and a CT of the chest was performed which showed no evidence of venous thromboembolism. Troponin was negative, EKG showed a normal sinus rhythm with nonspecific ST-T wave changes. Patient was also given IV Benadryl and Reglan. CBC and chemistries are unremarkable. Patient continued to have headache and was given IV morphine and was placed in observation status on PCU, she was seen by neurology and given IV Depakote and placed on Elavil at bedtime. Patient underwent an MRI which showed no acute process. Patient's headache improved during her hospital stay, it was unknown whether this is take was due to migraine-patient had no previous diagnosis of migraine cephalgia however. On 09/09/2018, patient was seen and examined: On examination she appeared in good health and spirits. Vital signs as documented. Skin warm and dry and without overt rashes. Neck without JVD. Lungs clear. Heart exam notable for regular rhythm, normal sounds and absence of murmurs, rubs or gallops. Abdomen unremarkable and without evidence of organomegaly, masses, or abdominal aortic enlargement. Extremities nonedematous. Neuro: Cranial nerves II through XII are grossly intact, no focal motor deficits were noted, sensation to light touch and pinprick is intact. Psych: Patient is alert and oriented x3, she does not appear anxious or depressed On 09/09/2018, patient was seen and examined felt to be in stable condition for discharge home - Physical Exam Vital Signs Temp Pulse Resp BP Pulse Ox 98.2 F 81 18 125/78 H 99 09/09/18 15:00 09/09/18 15:00 09/09/18 15:00 09/09/18 15:00 09/09/18 15:00 Oxygen Delivery Method Room Air Weight: 80.1 kg Body Mass Index (BMI) 27.6 Intake and Output for Last 24 Hours 09/08/18 09/09/18 09/10/18 23:59 23:59 23:59 Intake Total 2046 2435 / 2435 Balance 2046 2435 / 243 Discharge Activity: Return to Normal Activity Weight Bearing Status: Full weight bearing Home Medications: Medications to take at Discharge Levothyroxine [Synthroid] 75 mcg PO DAILY 09/22/15 Paroxetine HCl [Paxil] 40 mg PO DAILY 09/22/15 Meloxicam [Mobic] 7.5 mg PO DAILY 01/14/16 Albuterol Sulfate [Albuterol Sulfate Hfa] 2 puff INHALATION PRN PRN 09/07/18 Gabapentin [Neurontin] 300 mg PO TID 09/07/18 Loratadine 10 mg PO DAILY 09/07/18 Amitriptyline HCl [Elavil] 50 mg PO QHS #60 tab 09/09/18 Following Prescrptions Were Given to Patient: Amitriptyline HCl [Elavil] 50 mg PO QHS #60 tab Transmission Status: Received by [email or web address] #[email or web address] Primary Care Physician: Jessica May NP-C [Primary Care Provider] - Please follow up with your Primary Care Physician in: in 1-2 weeks Disposition: Home Minutes spent on discharge:: 30 Patient Condition:: Stable Medical Necessity - Tobacco Use Smoking Status: Former smoker Tobacco Use: Non-smoker Meaningful Use Info Meaningful Use Diagnoses (Choose all that apply): None applicable Code Visit OBSV E&M: 48106 Observation care discharge
== END 2018-09-09 11:49 | disposition home or self-care (01) ==
LOC: ED 16:19 → PCU 22:44
PROVIDERS: Admitting Provider Family Medicine; Emergency Provider Emergency Medicine; Family Provider Nurse Practitioner; PCP Nurse Practitioner; Visit Provider Family Medicine
DX: G43.911 Migraine, unspecified, intractable, with status migrainosus (principal); R07.89 Other chest pain; R00.2 Palpitations; R11.2 Nausea with vomiting, unspecified; Z85.850 Personal history of malignant neoplasm of thyroid; E03.9 Hypothyroidism, unspecified; Z79.899 Other long term (current) drug therapy; F41.9 Anxiety disorder, unspecified; F32.9 Major depressive disorder, single episode, unspecified; M19.90 Unspecified osteoarthritis, unspecified site; Z87.891 Personal history of nicotine dependence; K21.9 Gastro-esophageal reflux disease without esophagitis; B35.9 Dermatophytosis, unspecified
CPT/HCPCS: 36415; 70496; 70498; 70551; 71275; 74177; 80053; 80061; 83690; 83735; 84439; 84443; 84484; 85025; 93005; 96361; 96365; 96366; 96372; 96375; 96376; 99218; 99285; J7030; J7050; Q9967; A4216; G0378; J2405

== ENCOUNTER → 2018-10-22 09:25 | Outpatient (CLI) | payer MEDICARE, SELFPAY ==
[2018-09-07 23:25] VITALS: BMI 27.6
--- NOTE | 2018-10-22 09:29 | BI_ITS ---
MAMMOGRAPHY - BILATERAL DIAGNOSTIC REASON FOR EXAM: Female, 58 years old. Tenderness at the 9:00 position of the right breast. PERTINENT HISTORY: Non-contributory. Remote right excisional breast biopsy. TECHNIQUE: Digital bilateral breast tricia (3D mammographic acquisition) in the CC and MLO projections. 2-D mediolateral oblique (MLO) and craniocaudad (CC) views of both breasts were obtained. CAD: Full Field Digital Mammography with Computer Added Detection was performed. COMPARISON: Comparison is made with prior study dated September 25, 2017. FINDINGS: Breast Composition: There are scattered areas of fibroglandular density. There are no dominant masses or suspicious calcifications. Stable focal area of architectural distortion in the upper outer aspect of the right breast with history of prior excisional biopsy. No other significant abnormalities are identified. There has been no significant change since the prior study. BI/DIAG MAMM W/CAD, BILAT IMPRESSION: Stable bilateral diagnostic mammogram. With the patient's history of tenderness in the upper outer aspect of the right breast, correlation with ultrasound is recommended. ASSESSMENT CATEGORY: BIRADS Category 0: Incomplete. Need additional imaging evaluation. A letter regarding these results will be sent to the patient by the facility within 30 days. Approximately 10% of breast cancers are not detected by mammography. A normal mammogram should not delay biopsy of a clinically suspicious abnormality. Electronically Signed: Coleman Sutton, at 10:34 EDT , Service support ,
--- NOTE | 2018-10-22 09:29 | US_ITS ---
STUDY: ULTRASOUND BREAST - RIGHT REASON FOR EXAM: Female, 58 years old. Pain in the right breast. TECHNIQUE: Axial and longitudinal images of the RIGHT breast were performed with a high resolution ultrasound transducer. COMPARISON: Comparison is made with prior mammogram done earlier in the day. FINDINGS: RIGHT Breast: The lateral half of the right breast was examined by ultrasound. No sonographic abnormality is seen. US/Breast Limited Unilateral IMPRESSION: No sonographic abnormality is seen in the lateral aspect in the right breast. ASSESSMENT CATEGORY: BIRADS Category 1: Negative. A letter regarding these results will be sent to the patient by the facility within 30 days. Electronically Signed: Coleman Sutton, at 10:38 EDT , Service support ,
== END ==
PROVIDERS: Family Provider Nurse Practitioner; PCP Nurse Practitioner; Referring Provider Nurse Practitioner; Visit Provider Nurse Practitioner
DX: N63.11 Unspecified lump in the right breast, upper outer quadrant (principal)
CPT/HCPCS: 76642; 77062; 77066; G0279

== ENCOUNTER → 2018-12-08 09:54 | Outpatient (CLI) | payer MEDICARE, SELFPAY ==
[2018-09-07 23:25] VITALS: BMI 27.6
--- NOTE | 2018-12-08 10:45 | MRI_ITS ---
STUDY: MRI LUMBAR SPINE WITHOUT CONTRAST REASON FOR EXAM: Female, 58 years old. Radiculopathy. Disc disease. Back pain. Left leg pain. TECHNIQUE: Standardized fat and water weighted pulse sequences were obtained in the sagittal and axial planes. COMPARISON: X-rays dated February 09, 2017 FINDINGS: Chronic L1 and L5 vertebral body height loss (approximately 70%). Approximately 2 to 3 mm retropulsion at the L1 level. No acute fracture line. No acute dislocation. No acute cortical destruction. Slightly atypical signal rounded lesion within the L4 vertebral body (sagittal image 10 series 3) measuring 1.6 cm with mild STIR signal. Slightly exaggerated lumbar lordosis. Minimal levoscoliosis. Conus medullaris terminates normally at the L1 level. T12-L1: Mild endplate spondylosis. Asymmetric disc bulge with mild central canal narrowing. Normal bilateral facet joints. Normal bilateral lateral recesses. Normal bilateral intervertebral neural foramina. L1-2: Mild endplate spondylosis. Mild disc desiccation. Normal bilateral facet joints. Normal central canal and bilateral lateral recesses. Normal bilateral intervertebral neural foramina. L2-3: Normal endplates. Shallow disc bulge with annular fissure. Facet joint arthrosis. Normal central canal and bilateral lateral recesses. Normal bilateral intervertebral neural foramina. L3-4: Normal endplates. Shallow disc bulge. Facet joint arthrosis. Normal central canal and bilateral lateral recesses. Neural foraminal narrowing without impingement. L4-5: Minimal endplate spondylosis. Shallow disc bulge. Facet joint arthrosis. Normal central canal and bilateral lateral recesses. Neural foraminal narrowing without impingement. L5-S1: Mild endplate spondylosis. Shallow disc bulge. Facet joint arthrosis. Normal central canal and bilateral lateral recesses. Neural foraminal narrowing with early nerve root contact on the left. Vacuum phenomenon. Sacrum intact. Mild paraspinal muscle atrophy. Small renal high T2 signal lesions, statistically cysts. MRI/Spine Lumbar (Routine) IMPRESSION: Multilevel intervertebral disc disease with mild central canal narrowing at T12-L1 Multilevel neural foraminal narrowing with early contact of the left exiting L5 nerve root Exaggerated lumbar lordosis with minimal levoscoliosis and mild osteoarthritis Chronic L1 and L5 vertebral body fractures with minimal L1 retropulsion L4 rounded atypical signal lesion (statistically hemangioma; short-term 3-6 month contrast follow-up MRI recommended) Electronically Signed: Jim Rawls DO at 11:12 EDT Tel , Service support ,
== END ==
PROVIDERS: Family Provider Nurse Practitioner; PCP Nurse Practitioner; Referring Provider Anesthesiology Pain Medicine; Visit Provider Anesthesiology Pain Medicine
DX: M51.37 Other intervertebral disc degeneration, lumbosacral region (principal); M54.17 Radiculopathy, lumbosacral region
CPT/HCPCS: 72148

== ENCOUNTER 2019-05-01 18:17 | Emergency (ER) | payer MEDICARE, MEDICAID, SELFPAY ==
[2018-09-07 23:25] VITALS: BMI 27.6
[2019-05-01 18:19] VITALS: BP 129/82; PULSE 72; RESP 18; TEMP 36.7; O2SAT 96; BMI 30.5
--- NOTE | 2019-05-01 18:32 | CT_ITS ---
STUDY: CT CERVICAL SPINE WITHOUT CONTRAST REASON FOR EXAM: Female, 59 years old. FELL BACKWARDS/HIT HEAD/NO LOC/OSTEOPOROSIS RADIATION DOSAGE (If Supplied By Facility): CTDIvol = ( 19.97 ) mGy, DLP = ( 370.31 ) mGycm TECHNIQUE: High resolution transaxial imaging was performed without contrast material. Sagittal and coronal images were reconstructed. Individualized dose optimization techniques were used for this CT. COMPARISON: None FINDINGS: Normal craniovertebral junction. Normal anterior atlantoaxial articulation. Normal odontoid process. Normal cervical lordosis. Normal vertebral bodies and posterior osseous elements. C2-3: Normal endplates. Normal disc height and morphology. Normal central canal and intervertebral neuroforamina. C3-4: Normal endplates. Normal disc height and morphology. Normal central canal and intervertebral neuroforamina. C4-5: Normal endplates. Normal disc height and morphology. Normal central canal and intervertebral neuroforamina. C5-6: Normal endplates. Normal disc height and morphology. Normal central canal and intervertebral neuroforamina. C6-7: Normal endplates. Normal disc height and morphology. Normal central canal and intervertebral neuroforamina. C7-T1: Normal endplates. Normal disc height and morphology. Normal central canal and intervertebral neuroforamina. Normal visualized soft tissue structures. CT/Spine Cervical without Contras IMPRESSION: Normal unenhanced CT examination of the cervical spine. Electronically Signed: Nilay Paige MD at 20:06 EST Tel , Service support ,
--- NOTE | 2019-05-01 18:32 | CT_ITS ---
STUDY: CT LUMBAR SPINE WITHOUT CONTRAST REASON FOR EXAM: Female, 59 years old. FELL BACKWARDS HIT HEAD/NO LOC/OSTEOPOROSIS RADIATION DOSAGE (If Supplied By Facility): CTDIvol = ( 20.25 ) mGy, DLP = ( 669.26 ) mGycm TECHNIQUE: The patient was scanned in a multi detector CT scanner. High resolution transaxial imaging was performed. Images were obtained from T12 to S1. Sagittal and coronal images were reconstructed. Individualized dose optimization techniques were used for this CT. COMPARISON: CT abdomen and pelvis 09/07/2018 FINDINGS: Normal lumbar lordosis. Mild levoscoliosis. No change in the chronic compression fractures of L1 and L5. No retropulsion into the spinal canal and no severe spinal stenosis. L1-2: Normal endplates. Normal disc height and morphology. Normal bilateral facet joints. Normal central canal and bilateral lateral recesses. Normal bilateral intervertebral neural foramina. L2-3: Normal endplates. Normal disc height and morphology. Normal bilateral facet joints. Normal central canal and bilateral lateral recesses. Normal bilateral intervertebral neural foramina. L3-4: Normal endplates. Normal disc height and morphology. Normal bilateral facet joints. Normal central canal and bilateral lateral recesses. Normal bilateral intervertebral neural foramina. L4-5: Normal endplates. Normal disc height and morphology. Normal bilateral facet joints. Normal central canal and bilateral lateral recesses. Normal bilateral intervertebral neural foramina. L5-S1: Normal endplates. Normal disc height and morphology. Normal bilateral facet joints. Normal central canal and bilateral lateral recesses. Normal bilateral intervertebral neural foramina. Normal visualized paraspinous soft tissue structures. CT/Spine Lumbar without Contrast IMPRESSION: No acute fracture or subluxation. Electronically Signed: Nilay Paige MD at 20:15 EST Tel , Service support ,
--- NOTE | 2019-05-01 18:32 | CT_ITS ---
STUDY: CT THORACIC SPINE WITHOUT CONTRAST REASON FOR EXAM: Female, 59 years old. FELL BACKWARDS HIT HEAD/NO LOC/OSTEOPOROSIS RADIATION DOSAGE (If Supplied By Facility): CTDIvol = ( 20.32 ) mGy, DLP = ( 732.70 ) mGycm TECHNIQUE: The patient was scanned in a multi detector CT scanner. High resolution imaging was performed. Images were obtained from C7 to L1. Sagittal and coronal images were reconstructed. Individualized dose optimization techniques were used for this CT. COMPARISON: CT the chest 09/07/2018 FINDINGS: Normal visualized cervical spine. Normal kyphosis of the thoracic spine. There is no substantial scoliosis. No change in the chronic compression fractures of T5, T7, T10, and L1. No retropulsion within the spinal canal and no spinal stenosis. Normal disc spaces heights. The soft tissue structures are unremarkable. CT/Spine Thoracic without Contras IMPRESSION: No acute fracture or subluxation. Electronically Signed: Nilay Paige MD at 20:12 EST Tel , Service support ,
--- NOTE | 2019-05-01 18:32 | RAD_ITS ---
STUDY: X-RAY - PELVIS REASON FOR EXAM: Female, 59 years old. FALL TECHNIQUE: One view of the pelvis was obtained. COMPARISON: None. FINDINGS: There is a non-specific bowel gas pattern. Normal visualized soft tissue structures. Normal bilateral iliac wings, sacroiliac joints and visualized sacrum. Normal visualized bilateral superior and inferior pubic rami. Normal pubic symphysis. Normal ischial tuberosities. Normal visualized right femoral head. Normal right acetabulum. Normal right hip joint. Normal visualized left femoral head. Normal left acetabulum. Normal left hip joint. RAD/Pelvis 1 or 2 Views IMPRESSION: Normal x-ray examination of the pelvis. Electronically Signed: Nilay Paige MD at 19:51 EST Tel , Service support ,
--- NOTE | 2019-05-01 18:32 | CT_ITS ---
STUDY: CT BRAIN WITHOUT CONTRAST REASON FOR EXAM: Female, 59 years old. FELL BACKWARDS/HIT HEAD/NO LOC/OSTEOPOROSIS RADIATION DOSAGE (If Supplied By Facility): CTDIvol = ( 44.99 ) mGy, DLP = ( 846.73 ) mGycm TECHNIQUE: Transaxial CT imaging of the brain was performed without administration of intravenous contrast material. Individualized dose optimization techniques were used for this CT. COMPARISON: No relevant priors. FINDINGS: Normal soft tissue structures. Normal calvarium. Normal size ventricles and extra-axial spaces for the patient''s age. Normal white matter tracts of the cerebral hemispheres. Normal basal ganglia and thalami. Normal brainstem. Normal cerebellum. There is no intracranial hemorrhage. There are no findings of an acute ischemic infarction. Normal visualized paranasal sinuses. CT/Brain/Head without Contrast IMPRESSION: Normal unenhanced CT scan of the brain. Electronically Signed: Nilay Paige MD at 20:04 EST Tel , Service support ,
--- NOTE | 2019-05-01 18:39 | ED.VIS.GEN ---
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 She hit the back of her head but has no loss of consciousness she is complaining of C-spine thoracic spine and lumbar tenderness. She also has some pelvis tenderness but no hip pain. She has no upper extremity injury she has no chest pain or abdominal pain. Past Medical History - Allergies and Home Meds Allergies/Adverse Reactions: Allergies No Known Allergies Allergy (Verified 09/07/18 14:29) Primary Care Physician: Jessica May, COLETTE-C [Primary Care Provider] - Past Medical History: - - Hypertension hypercholesterolemia, obesity Surgical History: - - Thyroid partial resection, tonsillectomy, hysterectomy, right breast biopsy, right upper extremity skin cancer lesion removal. Smoking Status: Former smoker - Family History Maternal Family History: Reports: Cancer, Diabetes, Heart Disease Paternal Family History: Reports: Cancer, Diabetes, Heart Disease Review of Systems All systems negative except as indicated General: Reports: - - No loss of consciousness Eyes: Denies: Visual changes - bilaterally ENT: Denies: Rhinorrhea, Sore throat Cardiovascular: Denies: Chest pain, Palpitations Respiratory: Denies: Dyspnea Gastrointestinal: Denies: Abdominal pain, Vomiting Genitourinary: Reports: - - Negative Musculoskeletal: Reports: Neck pain, Back pain, - - Pelvis tenderness Skin: Denies: Abrasions, Wounds Neurological: Reports: Headache. Denies: Weakness, Parasthesia, Numbness Hematologic: Denies: Easy bruising, Easy bleeding Allergy: Denies: Swelling of the tongue Physical Exam Vital Signs/Narrative: Vital Signs Temp Pulse Resp BP Pulse Ox 05/01/19 18:19 98.0 F 72 18 129/82 H 96 General: Well nourished, Well developed, Obese Head: Normocephalic, - - No signs of scalp hematoma or laceration Eyes: Perrl, EOMI ENT: - - No facial trauma Neck: - - C2, C3 and C4 tenderness Cardiovascular: Regular rate, Regular rhythm Respiratory: No distress, CTA bilaterally Abdomen: Soft, Nontender Rectal: Deferred Back: - - Patient has tenderness over the mid thoracic region as well as lower lumbar region. There are no step-offs. Skin: Normal color Neurological: Alert, Oriented x3, Normal Strength, Normal Sensation Psychological: Normal affect Diagnostic/Tx/Re-eval - Medical Decision Making Patient has a normal CT of the head, C-spine, thoracic spine, lumbar spine. She has normal chest x-ray and pelvis x-ray. There are no other injuries. I will discharge her with analgesia and reassurance ED Disposition - Plan for ED Patient: Disposition: Home or Assisted Living Diagnosis: Fall Instructions: FALL, Mechanical Prescriptions: Oxycodone HCl/Acetaminophen [Percocet 5/325] 1 tablet PO Q6H PRN PRN 3 Days #12 tablet PRN Reason: Pain Transmission Status: Sent to [facility]30 Referrals: Jessica May, IRRIGATION SERVICE TECHNICIAN-C [Primary Care Provider] -
[2019-05-01] MEDS: Ondansetron 4 MG/2 ML Vial IV (18:54)
[2019-05-01] MEDS: Morphine 4 MG/ML Syringe IV (18:54)
--- NOTE | 2019-05-01 19:28 | RAD_ITS ---
STUDY: X-RAY CHEST REASON FOR EXAM: Female, 59 years old. FALL TECHNIQUE: Single AP portable view of the chest. COMPARISON: None. FINDINGS: The lungs are clear and expanded. Elevated right hemidiaphragm. Normal size heart. Normal mediastinum and tony. Normal visualized pulmonary arteries. Normal visualized aortic arch and descending thoracic aorta. Normal visualized thoracic spine. Normal visualized ribs, clavicles, and shoulders. There is no demonstrated abnormality of the visualized soft tissue structures of the upper abdomen. RAD/Chest 1 View (Portable) IMPRESSION: Normal x-ray examination of the chest. Electronically Signed: Nilay Paige MD at 19:52 EST Tel , Service support ,
[2019-05-01 19:45] VITALS: BP 120/78; PULSE 78; RESP 16; O2SAT 94
[2019-05-01] MEDS: Ketorolac 15 MG/ML Vial IV (20:33)
[2019-05-01 20:38] VITALS: BP 118/74; PULSE 80; RESP 16; O2SAT 95
== END 2019-05-01 20:54 | disposition home or self-care (01) ==
PROVIDERS: Emergency Provider Emergency Medicine; PCP Nurse Practitioner
DX: M54.9 Dorsalgia, unspecified (principal); M54.2 Cervicalgia; E66.9 Obesity, unspecified; W19.XXXA Unspecified fall, initial encounter; Z87.891 Personal history of nicotine dependence
CPT/HCPCS: 70450; 71045; 72125; 72128; 72131; 72170; 96374; 96375; 99284; J7030; A4216; J2405

== ENCOUNTER → 2019-05-05 15:24 | Outpatient (CLI) | payer MEDICARE, MEDICAID, SELFPAY ==
[2019-05-01 18:19] VITALS: BMI 30.5
--- NOTE | 2019-05-05 15:32 | CT_ITS ---
STUDY: CTA CHEST REASON FOR EXAM: Female, 59 years old. R/O PE, SHORTNESS OF BREATH, ELEVATED D-DIMER RADIATION DOSAGE (If Supplied By Facility): CTDIvol = ( 10.89 ) mGy, DLP = ( 425.18 ) mGycm TECHNIQUE: The examination was performed with the intravenous administration of IV 100 ML ISOVUE 370. Post-processing of the angiographic images was performed, with multiplanar reformation and 3D reconstruction. Individualized dose optimization techniques were used for this CT. COMPARISON: September 07, 2085 FINDINGS: Normal enhancement of the main pulmonary artery and right and left pulmonary arteries. There is limited enhancement of the bilateral peripheral pulmonary arteries. There is no demonstrated pulmonary embolism. There is atherosclerotic calcification of the aortic arch with tortuosity. There is no demonstrated aortic dissection. Normal heart and pericardium. Normal mediastinum. Normal hilar regions. Normal visualized trachea and bronchi. The lungs are well expanded. Normal pulmonary parenchyma. No pleural effusion. Stable nodular pleural thickening in the left lower lung. Normal chest wall structures. There are stable compression fractures of the thoracic spine. There is a small hiatal hernia. CT/CTA Chest W/WO Contrast IMPRESSION: Normal CTA chest examination, without a demonstrated pulmonary embolism or arterial dissection. Electronically Signed: Manny Hernandez MD at 17:48 EST , Service support ,
== END ==
PROVIDERS: PCP Nurse Practitioner; Referring Provider Nurse Practitioner; Visit Provider Nurse Practitioner
DX: R79.89 Other specified abnormal findings of blood chemistry (principal); R06.02 Shortness of breath
CPT/HCPCS: 71275; 83880; 85379; Q9967

== ENCOUNTER → 2019-05-05 | Outpatient (CLI) | payer MEDICARE, MEDICAID, SELFPAY ==
[2019-05-01 18:19] VITALS: BMI 30.5
[2019-05-05 13:55] LABS: D-Dimer Quantitative (DVT/PE) 0.69 FEU/ug/m (0.27-0.49)
[2019-05-05 13:56] LABS: BNP,B-Type NATRIURETIC PEPTIDE 5.9 pg/mL (0-100)
== END | disposition home or self-care (01) ==
LOC: LABSPEC 13:01
PROVIDERS: PCP Nurse Practitioner; Referring Provider Nurse Practitioner; Visit Provider Nurse Practitioner
DX: R06.02 Shortness of breath (principal)
CPT/HCPCS: 83880; 85379

== ENCOUNTER → 2019-05-12 07:10 | Outpatient (CLI) | payer MEDICARE, MEDICAID, SELFPAY ==
[2019-05-01 18:19] VITALS: BMI 30.5
--- NOTE | 2019-05-12 07:22 | MRI_ITS ---
STUDY: MRI LUMBAR SPINE WITH AND WITHOUT CONTRAST REASON FOR EXAM: Female, 59 years old. back pain, f/u to lesion L4 CLINICAL HISTORY: 59 years Female, back pain, f/u to lesion L4 COMPARISON: Previous CT scan of the lumbar spine obtained on 05/01/2019 TECHNIQUE: MRI lumbar spine was performed utilizing T1 and fast spin-echo T2-weighted and STIR weighted sagittal images followed by angled axial T1 and T2-weighted images obtained from above the L1-L2 intervertebral disc space level down to the L5-S1 level. Sagittal and axial postcontrast T1-weighted images; levels were obtained. FINDINGS: T12-L1: The sagittal images, a paracentral disc herniation is noted at this level on the right. No central spinal stenosis is identified in the neural foramen at this level appear normal bilaterally.. L1-L2: The intervertebral disc and neural foramina appear to be normal. L2-L3:The intervertebral disc and neural foramina appear to be normal. L3-L4: The intervertebral disc and neural foramina appear to be normal. L4-L5: A diffusely bulging disc is noted at this level with no evidence of disc herniation or spinal stenosis. Mild central foraminal stenosis is identified. This is not compressing the L4 nerve roots as they exit the L4-5 neural foramina. L5-S1:The intervertebral disc and neural foramina appear to be normal. Conus medullaris and lumbar nerve roots: The conus medullaris ends at the T12-L1 level and appears to be normal. The lumbar nerve roots appear to be normal. Lumbar spine: The lumbar spine shows vertebral body compression fractures L1, L3, L4, and L5. There is minimal bone marrow edema noted in the anterior aspect of the L4 and the L3 lumbar vertebral body suggestive of subacute or remote vertebral body compression fractures. Since no bone marrow edema is noted in L1 and L5 these are vertebral body compression fractures. There is multiple vertebral body compression fractures are due to diffuse osteoporosis of the lumbar spine MRI/Spine Lumbar W/WO Contrast IMPRESSION: 1. A paracentral disc herniation is noted at the T12-L1 level on the right. 2. Diffuse osteoporosis of the lumbar spine with old vertebral body compression fractures of L1 and L5 and more recent compression fractures of L3 and L4. No retropulsed components of these compression fractures or spinal stenosis is seen. Electronically Signed: Raul Smith, at 11:55 EST Tel , Service support ,
== END ==
PROVIDERS: PCP Nurse Practitioner; Referring Provider Nurse Practitioner; Visit Provider Nurse Practitioner
DX: M54.9 Dorsalgia, unspecified (principal)
CPT/HCPCS: 72158; A9575

== ENCOUNTER → 2019-11-02 13:21 | Outpatient (CLI) | payer MEDICARE, MEDICAID, SELFPAY ==
--- NOTE | 2019-11-02 13:22 | BI_ITS ---
MAMMOGRAPHY - BILATERAL SCREENING 3-D TOMOSYNTHESIS REASON FOR EXAM: Female, 59 years old. Annual screening mammogram. PERTINENT HISTORY: History of right excisional biopsy in 2011. TECHNIQUE: 2-D mammograms and 3-D Tomosynthesis of the breast (s) were performed. CAD was performed. COMPARISON: 09/25/2017 FINDINGS The breast composition is almost entirely fat. Stable left breast. New asymmetry in the central portion of the right breast seen only on the MLO view likely representing asymmetric glandular tissue. Patient should return for compression spot views of this area. If the area persists, ultrasound may be needed. BI/SCREEN MAMM (CAD) W/VERONICA BILAT IMPRESSION: Asymmetry in the right breast seen only on the MLO view for which further evaluation is recommended, as outlined above. ASSESSMENT CATEGORY: BIRADS Category 0: Incomplete. Need additional imaging evaluation as above. A letter regarding these results will be sent to the patient by the facility within 30 days. FOLLOW UP RECOMMENDATION: Additional imaging recommended as above. (E) Approximately 10% of breast cancers are not detected by mammography. A normal mammogram should not delay biopsy of a clinically suspicious abnormality. Electronically Signed: Devang Hilton MD at 17:41 EDT , Service support ,
--- NOTE | 2019-11-02 13:28 | BD_ITS ---
STUDY: DUAL ENERGY X-RAY ABSORPTIOMETRY / DXA REASON FOR EXAM: Female, 59 years old. Age of surgical piedad 40. Pat is 191.7# and 66.75 and quot; a loss of 3.5 and quot; per pat. Quit smoking 4 yrs ago. Pat has a hx of getting back injections. Takes a thyroid med and a multi-vit. Has a past hx of being on forteo for as long as recommended. Now is on Prolia 1 injection thus far. Hx of a foot, clavical and rib fx''s, pat also states 3 lumbar and 3 thoracic back fx''s. Does not exercise. TECHNIQUE: Bone Mineral Density (BMD) measurements of lumbar spine and bilateral hips were obtained. COMPARISON: Comparison is made with prior study dated 09/25/2017. FINDINGS: Lumbar Spine (L1-L4): g/cm2 (0.758) / T-score (-3.5) / Z-score (-2.4) Findings are suggestive of osteoporosis with a high fracture risk. Left Femur Total: g/cm2 (0.658) / T-score (-2.8) / Z-score (-1.9) Left Femoral Neck: g/cm2 (0.670) / T-score (-2.6) / Z-score (-1.4) Right Femur Total: g/cm2 (0.645) / T-score (-2.9) / Z-score (-2.0) Right Femoral Neck: g/cm2 (0.655) / T-score (-2.8) / Z-score (-1.5) The T-Scores on the most recent prior examination were: Lumbar Spine (L1-L4): There has been worsening of bone density since the previous examination. Left Femur Total: which represents a worsening of 0.9%. Right Femur Total: which represents an improvement of 0.7%. BD/Dexa Bone Density Study IMPRESSION: The patient is considered osteoporotic as outlined below according to World Mani Organization (WHO) criteria with a high fracture risk. There has been worsening of bone density since the previous examination. Reference Information: The T-score is the number of standard deviations above or below the standard which is normal for young adults at their peak bone mineral density. The World Health Organization (WHO) interprets the T-scores as follows: Above -1 Normal bone density Between -1 and -2.5 Osteopenia Equal to / or below -2.5 Osteoporosis As a practical clinical guideline, osteopenia may be graded as follows: Mild -1 through -1.5 Moderate -1.6 through -2.0 Severe -2.1 through -2.4 The Z-score is the number of standard deviations above or below age-matched controls. A Z-score of less than -1.5 would be considered abnormal. References: 1. NIH Osteoporosis and Related Bone Diseases http://www.osteo.org 2. International Society for Clinical Densitometry http://www.iscd.org 3. National Osteoporosis Foundation http://www.nof.org Electronically Signed: Coleman Sutton, at 14:04 EDT , Service support ,
== END ==
PROVIDERS: PCP Nurse Practitioner; Referring Provider Nurse Practitioner; Visit Provider Nurse Practitioner
DX: Z12.31 Encounter for screening mammogram for malignant neoplasm of breast (principal); M81.0 Age-related osteoporosis without current pathological fracture
CPT/HCPCS: 77063; 77067; 77080

== ENCOUNTER → 2019-11-04 09:00 | Outpatient (CLI) | payer MEDICARE, MEDICAID, SELFPAY ==
--- NOTE | 2019-11-04 09:04 | BI_ITS ---
MAMMOGRAPHY - UNILATERAL DIAGNOSTIC: RIGHT BREAST REASON FOR EXAM: Female, 59 years old. Asymmetry in the right breast seen only on the MLO view for which further evaluation is recommended PERTINENT HISTORY: History of right excisional biopsy in 2011. TECHNIQUE: Digital unilateral breast tricia (3D mammographic acquisition) in the CC and MLO projections. 2-D mediolateral oblique (MLO) and craniocaudad (CC) views of both breasts were obtained. CAD: Full Field Digital Mammography with Computer Added Detection was performed. COMPARISON: None. FINDINGS: Breast Composition: The breasts are almost entirely fatty. The previously described asymmetric density in the right breast dispersed on the spot compression view. There is no evidence of mass. There are no dominant masses or suspicious calcifications. No other significant abnormalities are identified. BI/DIAG MAMM W/CAD, UNILAT IMPRESSION: Stable unilateral diagnostic mammogram. One year follow-up mammogram recommended. (A) ASSESSMENT CATEGORY: BIRADS Category 2: Benign. A letter regarding these results will be sent to the patient by the facility within 30 days. Approximately 10% of breast cancers are not detected by mammography. A normal mammogram should not delay biopsy of a clinically suspicious abnormality. Electronically Signed: Carlos Dewey, at 16:57 EDT Tel , Service support ,
== END ==
PROVIDERS: PCP Nurse Practitioner; Referring Provider Nurse Practitioner; Visit Provider Nurse Practitioner
DX: R92.8 Other abnormal and inconclusive findings on diagnostic imaging of breast (principal)
CPT/HCPCS: 77065

== ENCOUNTER 2020-01-03 09:08 | Day surgery (SDC) | payer MEDICARE, MEDICAID, SELFPAY ==
[2020-01-03] VITALS (11 sets, daily range): BP systolic 84–116; BP diastolic 68–83; PULSE 77–87; RESP 16–18; TEMP 36.4–36.8; O2SAT 95–100; BMI 29.8
[2020-01-03] MEDS: Lactated Ringers 1,000 ML 100 ML IV (10:10)
--- NOTE | 2020-01-03 11:05 | RAD_ITS ---
PROCEDURE: Spinal cord stimulator insertion. DATE OF EXAMINATION: 01/03/2020. INDICATION: Female, 59 years old. Chronic back pain. FLUOROSCOPY TIME (if supplied): (3 minutes and 42 seconds) minutes/seconds. 14 intraoperative images were obtained. Intraoperative imaging provided for spinal cord stimulator insertion. The tip of the electrodes are at the T7-T8 level. RAD/Lumbar Spine 2 or 3 Views IMPRESSION: Intraoperative fluoroscopic services provided for spinal cord stimulator insertion. The tips of the electrodes are at the T7-T8 level. Electronically Signed: Coleman Sutton, at 14:29 EDT , Service support ,
[2020-01-03] MEDS: Cefazolin 2 GM in 0.9% Normal Saline 100 ML IV (11:50)
[2020-01-03] MEDS: Bupivacaine 0.25% 30 ML Vial (12:28)
[2020-01-03] MEDS: Bacitracin 500 UNITS/GM PACKET (12:30)
[2020-01-03] MEDS: Ipratropium/Albuterol Sulfate 3 ML AMPUL.NEB INHALATION (13:02)
--- NOTE | 2020-01-03 13:19 | RAD_ITS ---
STUDY: X-RAY CHEST REASON FOR EXAM: Female, 59 years old. Patient possible aspirated vomit during OR while prone TECHNIQUE: Single AP portable view of the chest. COMPARISON: Comparison is made with prior study dated 05/01/2019. FINDINGS: EKG electrodes are seen. A pain stimulator device is seen with electrodes at the T7-T8 level. Focal infiltrate in the medial aspect of the right lower lobe. Mild increased markings also seen in the medial aspect of the left upper lobe adjacent to the aortic knob. There is no demonstrated pleural abnormality. Normal size heart. Normal mediastinum and tony. Normal visualized pulmonary arteries. Normal visualized aortic arch and descending thoracic aorta. Normal visualized thoracic spine. Normal visualized ribs, clavicles, and shoulders. There is no demonstrated abnormality of the visualized soft tissue structures of the upper abdomen. RAD/Chest 1 View (Portable) IMPRESSION: Increased markings suggestive of an early infiltrate in the medial aspect of the right lower lobe as well as the medial aspect of the left upper lobe. Electronically Signed: Coleman Sutton, at 13:27 EDT , Service support ,
--- NOTE | 2020-01-03 16:46 | PCM.OPRPT ---
Report of Operation Date of Procedure: 01/03/20 Description of Surgical Findings:: Pre-Operative Diagnosis: Lumbosacral radiculopathy, lumbosacral degenerative disc disease, lumbosacral spinal stenosis. Post-Operative Diagnosis: Lumbosacral radiculopathy, lumbosacral degenerative disc disease, lumbosacral spinal stenosis. Surgery/Procedure Performed:: 1. Spinal cord stimulator thoracolumbar leads placement x2 #2 spinal cord stimulator Medtronic intellus generator placement #3 spinal cord stimulator generator pocket creation at the left gluteal region #4 spinal cord stimulator simple programming, 5-intraoperative fluoroscopic interpretation Description of Surgical Findings:: PROCEDURES: 1. Spinal cord stimulator thoracolumbar leads placement x2 #2 spinal cord stimulator Medtronic intellus generator placement #3 spinal cord stimulator generator pocket creation at the left gluteal region #4 spinal cord stimulator simple programming 5-intraoperative fluoroscopic interpretation ANESTHESIA: MAC COMPLICATIONS: None BLOOD LOSS: Minimal <25 CC Implanted device: Spinal cord stimulator lead [id number] lot number [id number], lead #2 lot number [id number], Medtronic spinal cord stimulator generator intellus serial number [id number] PROCEDURE IN DETAIL: History and physical today was reviewed. Risks and benefits of procedure explained. The patient understood, agreed to procedure, informed consent was obtained. IV inserted per routine protocol. The patient was taken to the operating room, placed in the prone position with a pillow positioned underneath the abdomen. A 2 g of Ancef IV piggyback was infused per anesthesia. The lower back and left gluteal area was prepped and draped in a sterile fashion using iodine x3. The C-arm was brought in position for AP view at the L1-2 vertebral bodies under direct visualization fluoroscopy on a true AP view the L2-3 interlaminar space was identified skin and subcutaneous tissue and size approximately 10 cc of a mix of 2% lidocaine and 0.25% Marcaine using a 25-gauge regular needle followed by a 25-gauge 6 inch spinal needle towards the interlaminar space at L2-3, the skin and subcutaneous tissue were then anesthetized and using an 11-gauge blade was then taken down to the skin and subcutaneous tissue using a 14-gauge 3.5 inch Touhy needle provided by the [employer] kit the needle was passed through the skin towards the interlaminar space at L1-2 and a paramedian approach the needle was then advanced under direct visualization fluoroscopy towards the interlaminar space at L1-2 [id number] technique was then carried to air towards the interlaminar space at L3-4 once the tip of the needle was in the epidural space and loss of resistance was encountered to air and after confirmation of AP as well as oblique view of the spinal cord stimulator lead was then advanced under direct visualization fluoroscopy to be at the tip of the lead at T8 and the bottom of the lead around mid T10 after confirmation of AP as well as lateral view to confirm correct placement of the lead in the posterior compartment of the epidural space the previous procedure was then repeated to a level above at T12-L1 interlaminar space the second lead was then inserted under direct visualization with fluoroscopy to be at the mid T8 and mid T11 area the leads were were then connected to the external neurostimulator and patient was then awakened to confirm satisfactory coverage of the painful area once satisfactory coverage was then achieved the stylette of each needle was then removed and the skin and subcutaneous tissue on to the left of the paramedian needles was then taken anesthetized with a total of 10 cc of the previous mixture of 0.25% Marcaine and 2% lidocaine using a 25-gauge regular needle the incision was then taken down through the skin and subcutaneous tissue towards the fascia making sure hemostasis was then maintained via cautery, the spinal cord stimulator leads were then passed through the above incision and secured using the bi-wing and sutured down with a 2-0 nylon to the fascia at that level the spinal cord stimulator leads were then tunneled via a tunneler provided by the 500 [employer] kit towards the previously incised spinal cord stimulator battery at the left gluteal region skin and subcutaneous tissue were anesthetized with approximately 10 cc of a mix of 2% lidocaine and 0.25% Marcaine using a 25 gauge regular needle, skin and subcutaneous tissue was then taken down with the 11-gauge blade hemostasis was maintained with Bovie and direct pressure the incision was then taken down to the fascia and the battery was then secured with the 2-0 silk sutures that were the spinal cord stimulator leads the upper lead was then marked the new until spinal cord stimulator battery was then provided Via [employer] kit the battery was then reattached of the spinal cord stimulator make ensure that the top lead is attached to the top position from 0-7 electrodes and the bottom from 8-15 electrodes once impedance was then checked to be in the proper average number the intellus battery was then inserted into the pocket and impedance with when checked again the pocket was then inspected to confirm hemostasis in place, the intellus battery was then secured to the fascia using a 2-0 silk to the upper and lower eyes of the battery confirming an upward writing of the intellus facing posterior, once complete confirmation the battery was then placed in the position and the the mid paramedian and the gluteal incisions were then closed primarily through a 3-0 Vicryl in a interrupted fashion followed by a 4-0 chromic to the skin, hemostasis was then maintained during the procedure the skin was then covered with a Steri-Strips and bacitracin patient was then returned into the supine position in a stable condition and returned to recovery in a stable condition patient experienced no signs or symptoms of intrathecal or intravascular injection patient experienced no paresthesia the procedure was completed without any apparent difficulty any complication the patient appeared to tolerate well, motor as well as sensory exam was unchanged from prior to the procedure. ESTIMATED BLOOD LOSS: Minimal less than 25 mL ASSESSMENT AND PLAN: This is a 59-year-old female with lumbosacral radiculopathy lumbosacral degenerative disc disease lumbosacral spinal stenosis, status post 1. Spinal cord stimulator thoracolumbar leads placement x2 #2 spinal cord stimulator Medtronic intellus generator placement #3 spinal cord stimulator generator pocket creation at the left gluteal region #4 spinal cord stimulator simple programming, 5-intraoperative fluoroscopic interpretation patient will continue her current medications a prescription was provided to the patient for Keflex 500 mg 1 p.o. every 8 hours for 7 days, Harvel 5-325 mg 1 p.o. every 4 hours as needed acute postoperative pain postop instruction were given in writing to the patient as well as verbally and in writing. the patient will follow approximately 1 week for reevaluation.
== END 2020-01-03 15:23 | disposition home or self-care (01) ==
LOC: SDC 09:09 → AC 09:33
PROVIDERS: Anesthesiology; PCP Nurse Practitioner; Referring Provider Anesthesiology Pain Medicine; Visit Provider Anesthesiology Pain Medicine
PROC: (CPT 63685; principal; 2020-01-03 10:45)
DX: Z45.42 Encounter for adjustment and management of neurostimulator (principal); M48.07 Spinal stenosis, lumbosacral region; M51.17 Intervertebral disc disorders with radiculopathy, lumbosacral region; M79.7 Fibromyalgia; K21.9 Gastro-esophageal reflux disease without esophagitis; M81.0 Age-related osteoporosis without current pathological fracture; M06.9 Rheumatoid arthritis, unspecified; M41.9 Scoliosis, unspecified; G47.33 Obstructive sleep apnea (adult) (pediatric); F41.9 Anxiety disorder, unspecified; F32.9 Major depressive disorder, single episode, unspecified; Z79.899 Other long term (current) drug therapy; Z79.51 Long term (current) use of inhaled steroids; Z87.891 Personal history of nicotine dependence; Z79.891 Long term (current) use of opiate analgesic; Z86.2 Personal history of diseases of the blood and blood-forming organs and certain disorders involving the immune mechanism; Z85.850 Personal history of malignant neoplasm of thyroid; Z85.828 Personal history of other malignant neoplasm of skin; Z20.828 Contact with and (suspected) exposure to other viral communicable diseases
CPT/HCPCS: 00300; 63650; 63685; 95971; 71045; 72100; 76000; 87635; 94640; C1778; C1820; C9803; J7120; J2405; U0003

== ENCOUNTER → 2020-08-03 07:50 | Outpatient (CLI) | payer MEDICARE, MEDICAID, SELFPAY ==
[2020-01-03 10:04] VITALS: BMI 29.8
--- NOTE | 2020-08-03 07:52 | CT_ITS ---
STUDY: CT BRAIN WITHOUT CONTRAST REASON FOR EXAM: Female, 60 years old. Mental status change RADIATION DOSAGE (If Supplied By Facility): CTDIvol = ( 44.99 ) mGy, DLP = ( 796.11 ) mGycm TECHNIQUE: Transaxial CT imaging of the brain was performed without administration of intravenous contrast material. Individualized dose optimization techniques were used for this CT. COMPARISON: 05/01/2019 FINDINGS: Normal soft tissue structures. Normal calvarium. Normal size ventricles and extra-axial spaces for the patient''s age. Normal white matter tracts of the cerebral hemispheres. Normal basal ganglia and thalami. Normal brainstem. Normal cerebellum. There is no intracranial hemorrhage. There are no findings of an acute ischemic infarction. Normal visualized paranasal sinuses. CT/Brain/Head without Contrast IMPRESSION: Age consistent changes, no acute hemorrhage Electronically Signed: Yohan Crane MD at 8:38 EDT , Service support ,
== END ==
PROVIDERS: PCP Nurse Practitioner; Referring Provider Nurse Practitioner; Visit Provider Nurse Practitioner
DX: R41.3 Other amnesia (principal)
CPT/HCPCS: 70450

== ENCOUNTER → 2020-08-09 13:59 | Outpatient (CLI) | payer MEDICARE, MEDICAID, SELFPAY ==
[2020-01-03 10:04] VITALS: BMI 29.8
--- NOTE | 2020-08-09 14:02 | CDU_ITS ---
Reason For Study: Memory change Rt. Velocities/BP Lt. Velocities/BP Prox CCA 68.2/13.4 cm/sec. Prox CCA 86.3/13.5 cm/sec. Mid CCA 76/17.3 cm/sec. Mid CCA 76.1/11.3 cm/sec. Dist CCA 72.1/17.3 cm/sec. Dist CCA 69.5/12.4 cm/sec. Prox ICA 59.1/12.1 cm/sec. Prox ICA 49.8/11.3 cm/sec. Mid ICA 64.3/18.6 cm/sec. Mid ICA 92.5/26.2 cm/sec. Dist ICA 69.5/21.2 cm/sec. Dist ICA 94.9/31.1 cm/sec. Rt. ICA/CCA = 0.96. Lt. ICA/CCA = 1.25. Prox ECA 89.1/9.5 cm/sec. Prox ECA 61.9/5.8 cm/sec. Rt. Vert. 38.6/9 cm/sec. Lt. Vert. 45.4/12.4 cm/sec. Right Extracranial There is intimal thickening but no significant atherosclerotic plaque noted in the right common carotid artery. There is intimal thickening but no significant atherosclerotic plaque noted in the right internal carotid artery. There is intimal thickening but no significant atherosclerotic plaque noted in the right external carotid artery. Antegrade flow is noted in the right vertebral artery. Left Extracranial There is intimal thickening but no significant atherosclerotic plaque noted in the left common carotid artery. There is intimal thickening but no significant atherosclerotic plaque noted in the left internal carotid artery. There is intimal thickening but no significant atherosclerotic plaque noted in the left external carotid artery. Antegrade flow is noted in the left vertebral artery. Procedure Carotid Duplex 55852. This is a Carotid Duplex examination using B-mode, color flow and specral Doppler. Exam performed in department. VL/Carotid Duplex Ultrasound Interpretation Summary No significant atherosclerotic plaque or stenosis noted in the internal carotid arteries bilaterally. Flow within the vertebral arteries is antegrade bilaterally. Ordering Physician: Jessica May Referring Physician: Jessica May Performed By: Christa Kauffman RVT
== END ==
PROVIDERS: PCP Nurse Practitioner; Referring Provider Nurse Practitioner; Visit Provider Nurse Practitioner
DX: R42 Dizziness and giddiness (principal); R41.3 Other amnesia
CPT/HCPCS: 93880

== ENCOUNTER → 2020-09-13 06:03 | Outpatient (CLI) | payer MEDICARE, MEDICAID, SELFPAY ==
[2020-08-30 09:26] VITALS: BMI 30.7
--- NOTE | 2020-09-13 06:05 | ECHOD_ITS ---
Reason For Study: Dyspnea/SOB Procedure This was a 2D Doppler, Color Flow transthoracic echocardiogram. Exam performed in department. Left Ventricle Normal LV size. Left ventricular systolic function is normal. The estimated ejection fraction is 55 %. Stage 1 diastolic dysfunction. No regional wall motion abnormalities noted. Right Ventricle Normal RV size. Normal systolic function. Atria Normal left atrium. Normal right atrium. Mitral Valve Normal mitral valve. Mild (1+) eccentric mitral valve insufficiency. Tricuspid Valve Normal tricuspid valve. Mild tricuspid valve insufficiency. Aortic Valve Normal aortic valve. Trisinus/trileaflet aortic valve. Mild (1+) aortic valve insufficiency. Pulmonic Valve Normal pulmonic valve. Great Vessels Normal aortic root. Pericardium/Pleural No pericardial effusion. MMode/2D Measurements & Calculations LVIDd: 4.2 cm IVSd: 1.1 cm Ao root diam: 2.8 cm LVIDs: 2.7 cm LVPWd: 0.97 cm RVDd: 2.4 cm FS: 36.8 % LAV(MOD-bp): 35.5 ml LVAd ap4: 20.1 cm2 SV(MOD-sp4): 28.9 ml LAV(MOD-bp) Indexed: 17.9 ml/m2 LVLd ap4: 7.2 cm LAV(MOD-sp2): 41.8 ml EDV(MOD-sp4): 46.5 ml LAV(MOD-sp4): 27.6 ml EDV(sp4-el): 47.6 ml LVAs ap4: 10.8 cm2 LVLs ap4: 5.6 cm ESV(MOD-sp4): 17.6 ml ESV(sp4-el): 17.5 ml EF(MOD-sp4): 62.1 % EF(sp4-el): 63.3 % SV(sp4-el): 30.1 ml LA A4 area: 12.9 cm2 RA A4 area: 9.7 cm2 Doppler Measurements & Calculations MV E max artemio: 46.3 cm/sec Lat Peak E' Artemio: 8.3 cm/sec Med Peak E' Artemio: 5.7 cm/sec MV A max artemio: 56.9 cm/sec E/E' lat: 5.6 E/E' med: 8.1 MV E/A: 0.81 Ao V2 max: 115.4 cm/sec LV V1 max: 97.1 cm/sec PA V2 max: 86.7 cm/sec Ao max P.3 mmHg LV V1 max P.8 mmHg Ao V2 mean: 81.0 cm/sec Ao mean P.9 mmHg Ao V2 VTI: 20.2 cm PI end-d artemio: 111.3 cm/sec TR max artemio: 219.7 cm/sec TR max P.3 mmHg ECHO/Echo Complete Interpretation Summary Normal LV size. Left ventricular systolic function is normal. The estimated ejection fraction is 55 %. Stage 1 diastolic dysfunction. Mild tricuspid valve insufficiency. Ordering Physician: Pierre Jones Referring Physician: Jessica May Performed By: Skylar Dillard, NANCY, RVT
--- NOTE | 2020-09-13 17:35 | STRESSREP ---
Stress Test Report Pharmacologic myocardial perfusion stress test. 60-year-old lady with a history of persistent shortness of breath with exertion, history of obstructive lung disease. Stress protocol: Resting EKG demonstrates normal sinus rhythm with a rate of 75 bpm normal intervals are noted resting blood pressure is 122/80 mmHg. 0.4 mg of regadenoson was infused per usual protocol followed by rapid intravenous saline flush injection continuous EKG monitoring was performed. The maximum heart rate attained was 107 bpm which was 66% of maximum predicted heart rate the maximum workload was 1 metabolic equivalent. At rest there were no ST or T wave changes noted to suggest abnormal flow reserve and at peak infusion nonspecific ST changes were noted with did not meet the criteria for ischemia. No clinical angina was noted the resting blood pressure is 122/80 with a final blood pressure 116/70 mmHg. Myocardial perfusion protocol. 11.9 mCi of technetium 99m sestamibi was injected at rest. 0.4 mg of regadenoson was infused per usual protocol. At peak infusion 34.6 mCi of technetium 99m sestamibi was injected stress images were obtained stress and rest images were reconstructed and compared in the short axis vertical long and horizontal long axis. Gated images were also obtained to Perfusion SPECT analysis: Review of the stress images demonstrate normal uptake of tracer noted in all areas of the myocardium. The resting images similarly demonstrate normal uptake of tracer noted in all areas of the myocardium. No areas of reversibility are noted suggest ischemia and no previous infarct is noted. Gated SPECT analysis: The gated ejection fraction is 85%. Conclusion: Normal pharmacologic myocardial perfusion stress test. Preserved ejection fraction.
== END ==
PROVIDERS: PCP Nurse Practitioner; Referring Provider Internal Medicine Cardiovascular Disease; Visit Provider Internal Medicine Cardiovascular Disease
DX: R06.02 Shortness of breath (principal); R06.00 Dyspnea, unspecified
CPT/HCPCS: 78452; 93017; 93306; A9500; A4216; J2785

== ENCOUNTER 2021-05-16 13:45 | Outpatient (CLI) | payer MEDICARE, MEDICAID, SELFPAY ==
--- NOTE | 2021-05-16 13:49 | CT_ITS ---
STUDY: LOW DOSE CT LUNG CANCER SCREENING REASON FOR EXAM: Female, 61 years old. NICOTINE DEPENDENCY. The patient smoked 1 pack per day for 43 years. RADIATION DOSAGE (If Supplied By Facility): CTDIvol = ( 2.39 ) mGy, DLP = ( 67.59 ) mGycm TECHNIQUE: No contrast was administered. Low dose technique was utilized (average mAS-38 and kVp 120). 1.25 mm axial source images with a slice interval of 1.25-mm were reconstructed in lung windows. 2.5 mm axial source images with a slice interval of 2.5-mm were reconstructed in lung windows. 5.0 mm axial source images with a slice interval of 5.0-mm were reconstructed in soft tissue windows. Nodule measured using lung windows on PACS and/or independent workstation with automated measurement of minimum and maximum diameter. Nodule measurement reported as average diameter rounded to the nearest whole number. Growth is defined as an increase ins size of greater than 1.5 mm. COMPARISON: Comparison is made with prior examination in 01/03/2020. NODULES: No suspicious nodules are seen. Emphysema: Mild residual linear scarring at the lung bases. Endobronchial lesion: None Aorta: Mild atherosclerotic plaque formation of the aortic arch. Coronary arteries: Coronary artery calcification. Heart: Unremarkable. Pulmonary artery: Unremarkable Mediastinal nodes: Unremarkable Other chest and abdominal findings: Small hiatal hernia. CT/Low Dose CT Lung Screening IMPRESSION: Lung-RADS category 2 - Continue annual screening with LDCT in 12 months. IMPORTANT NOTES FOR USE: ACR Lung-RADS Version 1.1 Assessment Categories Release Date: 2018 Category: Coded 0-4 bases on nodule(s) with highest degree of suspicion. Negative screen is defined as categories 1 and 2; a positive screen is defined as categories 3 and 4. Category 3 and 4A nodules that are unchanged on interval CT should be coded as category 2, and individuals returned to screening in 12 months. Category 4X: Category 3 or 4 nodules with additional imaging findings that increase the suspicion of lung cancer, such as spiculation, GGN that doubles in size in 1 year, enlarged lymph notes, etc. Category Modifiers: S (significant finding unrelated to lung cancer) Electronically Signed: Coleman Sutton MD at 14:23 EST ,
== END 2021-05-16 23:59 | disposition home or self-care (01) ==
PROVIDERS: PCP Nurse Practitioner; Referring Provider Internal Medicine Pulmonary Disease; Visit Provider Internal Medicine Pulmonary Disease
DX: Z87.891 Personal history of nicotine dependence (principal)
CPT/HCPCS: 71271

== ENCOUNTER 2021-08-09 15:07 | Emergency (ER) | payer MEDICARE, MEDICAID, SELFPAY ==
[2021-08-09 15:09] VITALS: BP 95/66; PULSE 90; RESP 16; TEMP 36.8; BMI 30.9
--- NOTE | 2021-08-09 15:26 | EKG12_ITS ---
Test Reason : FALL Blood Pressure : / mmHG Vent. Rate : 080 BPM Atrial Rate : 080 BPM P-R Int : 172 ms QRS Dur : 080 ms QT Int : 374 ms P-R-T Axes : 025 -02 013 degrees QTc Int : 431 ms Normal sinus rhythm Normal ECG Confirmed by ISSAC PUGA, JUAN ALBERTO ([id number]), web content editor CECE MOODY ([id number]) on 08/10/2021 10:20:16 AM Referred By: ANATOLY Confirmed By:JUAN ALBERTO DAVENPORT MD
--- NOTE | 2021-08-09 15:27 | CT_ITS ---
STUDY: CT CERVICAL SPINE WITHOUT CONTRAST REASON FOR EXAM: Female, 61 years old. neck pain RADIATION DOSAGE (If Supplied By Facility): CTDIvol = ( 23.68 ) mGy, DLP = ( 533.79 ) mGycm TECHNIQUE: High resolution transaxial imaging was performed without contrast material. Sagittal and coronal images were reconstructed. Individualized dose optimization techniques were used for this CT. COMPARISON: None FINDINGS: Normal craniovertebral junction. Normal anterior atlantoaxial articulation. Normal odontoid process. Normal cervical lordosis. Normal vertebral bodies and posterior osseous elements. C2-3: Normal endplates. Normal disc height and morphology. Normal central canal and intervertebral neuroforamina. C3-4: Normal endplates. Normal disc height and morphology. Normal central canal and intervertebral neuroforamina. C4-5: Normal endplates. Normal disc height and morphology. Normal central canal and intervertebral neuroforamina. C5-6: Left uncovertebral hypertrophy results in mild left neural foraminal stenosis. No central spinal stenosis. C6-7: Normal endplates. Normal disc height and morphology. Normal central canal and intervertebral neuroforamina. C7-T1: Normal endplates. Normal disc height and morphology. Normal central canal and intervertebral neuroforamina. Status post left lobectomy of thyroid gland. CT/Spine Cervical without Contras IMPRESSION: No acute fracture or subluxation. At C5/C6 left uncovertebral joint hypertrophy produces mild left neural foraminal stenosis. Electronically Signed: Nilay Paige MD at 16:48 EDT ,
--- NOTE | 2021-08-09 15:45 | CT_ITS ---
STUDY: CT LUMBAR SPINE WITHOUT CONTRAST REASON FOR EXAM: Female, 61 years old. fall RADIATION DOSAGE (If Supplied By Facility): CTDIvol = ( 32.58 ) mGy, DLP = ( 1239.86 ) mGycm TECHNIQUE: The patient was scanned in a multi detector CT scanner. High resolution transaxial imaging was performed. Images were obtained from T12 to S1. Sagittal and coronal images were reconstructed. Individualized dose optimization techniques were used for this CT. COMPARISON: MRI 05/12/2019 FINDINGS: Normal lumbar lordosis. Mild levoscoliosis centered at L3. No change in the chronic mild compression fractures of L1 and L5 without retropulsion into the spinal canal. L1-2: Normal endplates. Normal disc height and morphology. Normal bilateral facet joints. Normal central canal and bilateral lateral recesses. Normal bilateral intervertebral neural foramina. L2-3: Normal endplates. Normal disc height and morphology. Normal bilateral facet joints. Normal central canal and bilateral lateral recesses. Normal bilateral intervertebral neural foramina. L3-4: Normal endplates. Normal disc height and morphology. Normal bilateral facet joints. Normal central canal and bilateral lateral recesses. Normal bilateral intervertebral neural foramina. L4-5: Mild bilateral facet hypertrophy and ligament flavum hypertrophy. 2 mm of anterolisthesis of L4 on L5. Mild broad disc protrusion produces mild spinal stenosis and mild bilateral neural foraminal stenosis. L5-S1: Normal endplates. Normal disc height and morphology. Normal bilateral facet joints. Normal central canal and bilateral lateral recesses. Normal bilateral intervertebral neural foramina. Normal visualized paraspinous soft tissue structures. CT/Spine Lumbar without Contrast IMPRESSION: 1. Chronic mild compression fractures of L1 and L5 without retropulsion into the spinal canal. 2. Mild levoscoliosis and degenerative disc disease as described above. Electronically Signed: Nilay Paige MD at 16:51 EDT ,
[2021-08-09 15:55] LABS: Absolute Neutrophil Count 2.9 X10^3/uL (2.0-7.7); Basophil# 0.06 X10^3/uL; Basophil% 1.1 % (0-1); Eosinophil# 0.16 X10^3/uL; Hematocrit 40.1 % (37-47); Hemoglobin 13.1 g/dL (12.0-15.0); Mean Corp Hgb Conc 32.7 g/dL (32-36); Mean Corpuscular Hgb 28.2 pg (27.0-32.0); Mean Corpuscular Volume 86.2 fL (81-99); Mean Platelet Vol. 9.3 fl (6.2-12.0); Monocyte# 0.47 X10^3/uL; Monocyte% 8.8 % (0-10); NRBC Flagged by Analyzer 0 % (0-5); Neutrophil # 2.91 X10^3/uL (2.7-7.7); Neutrophil % 54.7 % (47-70); Platelet Count 227 K/mm3 (150-450); RBC Distribution Width CV 12.8 % (11.6-14.6); RBC Distribution Width SD 40.2 fl (35.1-43.9); Red Blood Count 4.65 M/mm3 (4.2-5.4); White Blood Count 5.3 K/mm3 (4.4-11.0)
--- NOTE | 2021-08-09 16:01 | EDS_ITS ---
[facility] <MADELYN Masterson - Last Filed: 08/09/21 18:25> History of Present Illness Chief Complaint: Fall Narrative Narrative: 61-year-old female with history of of rheumatoid arthritis, osteoporosis, COPD, anxiety, hypothyroidism presents to the emergency department after syncopal episode. Patient was getting up from the chair to go to bed to take a nap which is not unusual for her, she then had a syncopal episode. Patient woke up and called her daughter. Patient complains of pain to her neck and lower lumbar spine. Patient denies any chest pain, shortness of breath. Patient states she still feels slightly lightheaded here, has history of vertigo however does not believe this is what it normally feels like. Patient denies any other injury. Patient denies any recent illnesses [facility] <MADELYN Masterson - Last Filed: 08/09/21 18:25> [facility] Medical History Adult BMI 30.0-30.9 kg/sq m Allergic rhinitis Anxiety and depression Back pain Compression fracture of L5 lumbar vertebra COPD (chronic obstructive pulmonary disease) Hyperlipidemia Hypothyroidism Obstructive sleep apnea Osteoarthritis Osteoporosis Personal history of nicotine dependence Shoulder pain Thyroid disease Vitamin D deficiency Home Medications albuterol sulfate 2 puff INHALATION PRN PRN 09/07/18 [History Last Taken 01/03/20] amitriptyline 50 mg PO QHS #60 tab 09/09/18 [Rx Last Taken 01/02/20] fluticasone furoate 200 mcg-vilanterol 25 mcg/dose inhalation powder 1 inh INHAL ATION DAILY 08/22/20 [History Last Taken Unknown] levothyroxine 75 mcg tablet 75 mcg PO DAILY 08/22/20 [History Last Taken Unknown] paroxetine HCl 30 mg tablet 30 mg PO DAILY 08/22/20 [History Last Taken Unknown] denosumab 60 mg/mL subcutaneous syringe 60 mg SUBCUT [id number] ml 08/30/20 [History Last Taken Unknown] meloxicam 7.5 mg tablet 7.5 mg PO DAILY PRN 08/30/20 [History Last Taken Unknown] rosuvastatin 5 mg tablet 5 mg PO DAILY tab 08/30/20 [History Last Taken Unknown] oxycodone-acetaminophen [Percocet] 1 tab PO Q6H PRN 2 Days #7 tab 08/09/21 [Rx Last Taken Unknown] Allergy/AdvReac Type Severity Reaction Status Date / Time No Known Allergies Allergy Verified 08/30/20 09:27 Family History Mother Heart disease Surgical History H/O: hysterectomy History of thyroidectomy Social History Smoking Status: Former smoker quit date: 03/17/14 pack-years: 22 alcohol intake: never caffeine: Yes Type: coffee Number of servings: 3 ROS <MADELYN Masterson - Last Filed: 08/09/21 18:25> ROS ED ROS Narrative Constitutional: Negative for fever, chills, weight loss, weakness Eyes: Negative for vision loss, vision change, double vision ENT: Negative for any sore throat, ear pain, congestion Cardiovascular: Negative for any chest pain, tightness, palpitations Respiratory: Negative for any cough, sputum production, hemoptysis, dyspnea, dyspnea on exertion, orthopnea Gastrointestinal: Negative for any abdominal pain, nausea, vomiting, diarrhea, constipation, blood in stool, blood in vomit : Negative for any urinary frequency, dysuria, retention, blood in urine Muscle skeletal: Negative for any muscle joint pain, stiffness, myalgias, arthralgias. Positive for neck pain, back pain Neurological: Negative for any headache, syncope, numbness or tingling, dizziness. Positive for syncope Skin: Negative for any rashes, lumps, itching, abrasions, lacerations Psychiatric: Negative for any depression, anxiety, stress, suicidal ideation, homicidal ideation Hematologic: Negative for any easy bruising, excessive bruising, easy bleeding Allergies: Negative for any eczema, hives, rash EXAM <MADELYN Mastesron - Last Filed: 08/09/21 18:25> Physical Exam Narrative Exam Narrative: Vital signs reviewed. Patient has a pale appearance, patient vital signs show slight hypotension with a blood pressure of 95/66 patient is alert and orient x4 HEET: Head normocephalic atraumatic, TMs clear bilaterally. Posterior pharynx is clear, moist mucous membranes. Nares clear bilaterally. Neck: Supple with no lymphadenopathy . No signs of meningismus, negative jolt sign. Patient does have tenderness throughout the entire cervical spine negative for any step-off deformity. Patient is full range of motion of upper extremities. Cardiac: Regular rate and rhythm no murmurs gallops or rubs, equal peripheral pulses bilaterally. Respiratory: Lungs clear to auscultation bilaterally. No chest tenderness. Abdomen: Soft, nontender, nondistended. No abdominal bruit or pulsatile masses. No hepatosplenomegaly Extremities: No peripheral edema, no signs of gross trauma or deformity. Active full range of motion of all extremities. Neuro: Cranial nerves II through XII intact, no focal neurological deficits. Skin: Clean dry and intact with no rash, purpura, petechiae, vesicles or pustules. Backs/flank: No CVA tenderness, patient has pain to the lower midline spine. No crepitus, ecchymosis, step-off deformity. No deformity. Psych: Normal mood and affect. No SI, HI or acute psychosis. Const Vital Signs: 08/09/21 15:09 08/09/21 15:12 08/09/21 16:24 Temperature 98.2 F Temperature Source Oral Pulse Rate 90 70 Respiratory Rate 16 16 Respiratory Effort Normal Blood Pressure 95/66 103/76 Blood Pressure Mean 75 85 Pulse Ox 96 Oxygen Delivery Method Room Air Room Air Room Air 08/09/21 16:58 08/09/21 18:33 Temperature Temperature Source Pulse Rate 73 87 Respiratory Rate 14 16 Respiratory Effort Blood Pressure 103/76 126/78 H Blood Pressure Mean 85 Pulse Ox 95 99 Oxygen Delivery Method Room Air Room Air Positive well nourished and well developed General Appearance ED: well developed <Jamil Mortensen MD - Last Filed: 08/09/21 23:44> Physical Exam Const Vital Signs: 08/09/21 15:09 08/09/21 15:12 08/09/21 16:24 Temperature 98.2 F Temperature Source Oral Pulse Rate 90 70 Respiratory Rate 16 16 Respiratory Effort Normal Blood Pressure 95/66 103/76 Blood Pressure Mean 75 85 Pulse Ox 96 Oxygen Delivery Method Room Air Room Air Room Air 08/09/21 16:58 08/09/21 18:33 Temperature Temperature Source Pulse Rate 73 87 Respiratory Rate 14 16 Respiratory Effort Blood Pressure 103/76 126/78 H Blood Pressure Mean 85 Pulse Ox 95 99 Oxygen Delivery Method Room Air Room Air [facility] <Sumit Patterson [employer] - Last Filed: 08/09/21 18:25> [facility] Narrative Medical decision making narrative: Patient appears well, patient appears nontoxic, vital signs are stable. Patient presents to the emergency department after a syncopal episode, falling striking her head, neck and injuring her lower back. Patient did receive laboratory values, patient CBC was unremarkable, patient's chemistry was unremarkable, patient's troponin was negative. Patient's EKG was unremarkable. Patient did receive multiple CAT scans, cervical spine shows no acute fracture subluxation. CT of the lumbar spine shows chronic mild compression fracture of L1 and L5 without retropulsion into the spinal cord. No acute process. Patient's brain CT shows a normal unenhanced CT scan of the brain. Patient's chest x-ray was unremarkable. Patient did receive 1 L of IV fluids, IV Zofran, IV fentanyl. Patient's blood pressure was in the mid to low 90s systolic however after IV fluids, patient's blood pressure normalized. Patient was ambulatory and denied any dizziness. At this time, I do not believe the patient had any acute cardiac event, I believe the patient had a syncopal episode secondary to hypotension. The patient feels better, and is stable on her feet and like to be discharged. Patient will follow up closely with her PCP instructed return for any worsening symptoms. Patient stable for discharge I will give the patient a couple days of pain medicine for her neck. Lab Data Labs: Laboratory Results - last 24 hr 08/09/21 08/09/21 15:49 15:49 WBC 5.3 RBC 4.65 Hgb 13.1 Hct 40.1 MCV 86.2 MCH 28.2 MCHC 32.7 RDW Std Deviation 40.2 RDW Coeff of Gladis 12.8 Plt Count 227 MPV 9.3 Immature Gran % (Auto) 0.400 Neut % (Auto) 54.7 Lymph % (Auto) 32.0 [place] % (Auto) 8.8 Eos % (Auto) 3.0 Baso % (Auto) 1.1 H Absolute Neuts (auto) 2.9 Absolute Lymphs (auto) 1.70 Nucleated RBC % 0 Sodium 138 Potassium 3.7 Chloride 105 Carbon Dioxide 26.0 Anion Gap 7 BUN 15 Creatinine 0.71 Estim Creat Clear Calc 80.92 Est GFR (MDRD) Af Amer 107 Est GFR (MDRD) Non-Af 88 BUN/Creatinine Ratio 21.0 H Glucose 94 Calcium 8.9 Troponin I High Sens < 3 L Radiography Diagnostic Testing: Clinical Impression(s) from Imaging Studies Cervical Spine CT 08/09/21 15:27 IMPRESSION: No acute fracture or subluxation. At C5/C6 left uncovertebral joint hypertrophy produces mild left neural foraminal stenosis. Electronically Signed: Nilay Paige MD at 16:48 EDT Reading Location ID and State: [id number] / [place] Tel , Service support , Lumbar Spine CT 08/09/21 15:45 IMPRESSION: 1. Chronic mild compression fractures of L1 and L5 without retropulsion into the spinal canal. 2. Mild levoscoliosis and degenerative disc disease as described above. Electronically Signed: Nilay Paige MD at 16:51 EDT Reading Location ID and State: [email or web address] / [place] Tel , Service support , Brain CT 08/09/21 16:06 IMPRESSION: Normal unenhanced CT scan of the brain. Electronically Signed: Nilay Paige MD at 16:42 EDT Reading Location ID and State: [email or web address] / [place] Tel , Service support , Chest X-Ray 08/09/21 16:10 IMPRESSION: No active disease. Electronically Signed: Nilay Paige MD at 16:42 EDT Reading Location ID and State: [id number] / [place] Tel , Service support , EKG Normal sinus rhythm: Attestation: I personally reviewed and interpreted this EKG as follows: Comments: Normal sinus rhythm, rate of 80 bpm, CO interval 172 ms, QRS duration 80 ms, <Jamil Mortensen MD - Last Filed: 05/26/22 23:44> MDM MDM Narrative Medical decision making narrative: ATTENDING NOTE: Dr. Mortensen: The patient was seen in conjunction with the PA-C/nurse practitioner. I performed a history and physical, and agree with the management of this patient. I agree with noted documentation and plan. I discussed the plan of care and final disposition with the physician associate/nurse practitioner. Follow-up with syncopal episode. GCS 15. ABCs intact. Transient hypotension. Check labs. Check EKG. Check CTs. Ambulate. Discharge. Lab Data Attestation: I reviewed the patient's lab results. Labs: Laboratory Results - last 24 hr 08/09/21 08/09/21 15:49 15:49 WBC 5.3 RBC 4.65 Hgb 13.1 Hct 40.1 MCV 86.2 MCH 28.2 MCHC 32.7 RDW Std Deviation 40.2 RDW Coeff of Gladis 12.8 Plt Count 227 MPV 9.3 Immature Gran % (Auto) 0.400 Neut % (Auto) 54.7 Lymph % (Auto) 32.0 [place] % (Auto) 8.8 Eos % (Auto) 3.0 Baso % (Auto) 1.1 H Absolute Neuts (auto) 2.9 Absolute Lymphs (auto) 1.70 Nucleated RBC % 0 Sodium 138 Potassium 3.7 Chloride 105 Carbon Dioxide 26.0 Anion Gap 7 BUN 15 Creatinine 0.71 Estim Creat Clear Calc 80.92 Est GFR (MDRD) Af Amer 107 Est GFR (MDRD) Non-Af 88 BUN/Creatinine Ratio 21.0 H Glucose 94 Calcium 8.9 Troponin I High Sens < 3 L Radiography Diagnostic Testing: Clinical Impression(s) from Imaging Studies Cervical Spine CT 08/09/21 15:27 IMPRESSION: No acute fracture or subluxation. At C5/C6 left uncovertebral joint hypertrophy produces mild left neural foraminal stenosis. Electronically Signed: Nilay Paige MD at 16:48 EDT , Lumbar Spine CT 08/09/21 15:45 IMPRESSION: 1. Chronic mild compression fractures of L1 and L5 without retropulsion into the spinal canal. 2. Mild levoscoliosis and degenerative disc disease as described above. Electronically Signed: Nilay Paige MD at 16:51 EDT , Brain CT 08/09/21 16:06 IMPRESSION: Normal unenhanced CT scan of the brain. Electronically Signed: Nilay Paige MD at 16:42 EDT , Chest X-Ray 08/09/21 16:10 IMPRESSION: No active disease. Electronically Signed: Nilay Paige MD at 16:42 EDT , Discharge Plan Triage Chief Complaint: Fall ED Midlevel Provider: Sumit Patterson ED Provider: Jamil Mortensen Dx/Rx/DC Orders Clinical Impression: Syncope, Cervical muscle strain Instructions: Causes of Syncope, Diagnosing Syncope, ED Neck Sprain or Strain Prescriptions: New oxycodone-acetaminophen [Percocet] 5-325 mg tablet 1 tab PO Q6H PRN (Reason: pain) 2 Days Qty: 7 RF: 0 No Action rosuvastatin 5 mg tablet 5 mg PO DAILY RF: 0 meloxicam [Mobic] 7.5 mg tablet 7.5 mg PO DAILY PRNRF: 0 Prolia 60 mg/mL syringe 60 mg subcut [id number] RF: 0 levothyroxine 75 mcg tablet 75 mcg PO DAILY RF: 0 paroxetine HCl [Paxil] 30 mg tablet 30 mg PO DAILY RF: 0 Breo Ellipta 200-25 mcg/dose blister with device 1 inh inhalation DAILY RF: 0 albuterol sulfate 8.5 GM HFA aerosol inhaler 2 puff inhalation PRN PRN (Reason: Sob &/Or Wheezing) RF: 0 amitriptyline 25 MG tablet 50 mg PO QHS Qty: 60 RF: 0 Primary Care Provider: Jessica May NP Referrals: Jessica May NP, [employer] [Primary Care Provider] - Activity Restrictions/Additional Instructions: Please change positions slowly for the next couple days. Please maintain hydration. Use pain medicine as needed. Print Language: Nauruan Disposition Disposition: Home, Self Care Discharge Date/Time: 08/09/21 18:34
--- NOTE | 2021-08-09 16:06 | CT_ITS ---
STUDY: CT BRAIN WITHOUT CONTRAST REASON FOR EXAM: Female, 61 years old. syncope RADIATION DOSAGE (If Supplied By Facility): CTDIvol = ( 44.99 ) mGy, DLP = ( 812.98 ) mGycm TECHNIQUE: Transaxial CT imaging of the brain was performed without administration of intravenous contrast material. Individualized dose optimization techniques were used for this CT. COMPARISON: 08/03/2020 FINDINGS: Normal soft tissue structures. Normal calvarium. Normal size ventricles and extra-axial spaces for the patient''s age. Normal white matter tracts of the cerebral hemispheres. Normal basal ganglia and thalami. Normal brainstem. Normal cerebellum. There is no intracranial hemorrhage. There are no findings of an acute ischemic infarction. Normal visualized paranasal sinuses. CT/Brain/Head without Contrast IMPRESSION: Normal unenhanced CT scan of the brain. Electronically Signed: Nilay Paige MD at 16:42 EDT ,
--- NOTE | 2021-08-09 16:10 | RAD_ITS ---
STUDY: X-RAY CHEST REASON FOR EXAM: Female, 61 years old. syncope TECHNIQUE: Single AP portable view of the chest. COMPARISON: 01/03/2020 FINDINGS: Dorsal column spinal stimulator in the lower thoracic spine. The lungs are clear and expanded. There is no demonstrated pleural abnormality. Normal size heart. Normal mediastinum and tony. Normal visualized pulmonary arteries. Normal visualized aortic arch and descending thoracic aorta. Normal visualized thoracic spine. Normal visualized ribs, clavicles, and shoulders. There is no demonstrated abnormality of the visualized soft tissue structures of the upper abdomen. RAD/Chest 1 View (Portable) IMPRESSION: No active disease. Electronically Signed: Nilay Paige MD at 16:42 EDT ,
[2021-08-09 16:15] LABS: Anion Gap 7 (5-15); BUN 15 mg/dL (7-18); Calcium,Total 8.9 mg/dL (8.5-10.1); Chloride 105 mmol/L (98-107); Creatinine, Serum 0.71 mg/dL (0.55-1.02); EST Glomerular Filtration Rate 88 mL/min (>60); Est Glom Filt Rate - Afr Amer 107 mL/min (>60); Estimated Creatinine Clearance 80.92 ml/min; Glucose 94 mg/dL (74-106); Potassium 3.7 mmol/L (3.5-5.1); Sodium Level 138 mmol/L (136-145); Troponin-I HS < 3 pg/mL (3.0-54.0)
[2021-08-09] MEDS: Ondansetron 4 MG/2 ML Vial IV (16:20)
[2021-08-09] MEDS: fentaNYL 100 MCG/2 ML Ampul 50 MCG IV (16:20)
[2021-08-09 16:24] VITALS: BP 103/76; PULSE 70; RESP 16; O2SAT 96
[2021-08-09 16:58] VITALS: BP 103/76; PULSE 73; RESP 14; O2SAT 95
[2021-08-09] MEDS: 0.9% Normal Saline 1,000 ML 999 ML IV (17:05)
--- NOTE | 2021-08-09 17:38 | ED.VIS.GI ---
HPI HPI - GI History of Present Illness Chief Complaint: Fall Narrative Narrative: Patient presents with left-sided abdominal pain. She states she has had hernias that are ventral in nature. She has had Bilroth procedure from bleeding ulcer. This was performed by a surgeon at [facility]. She states she is nauseated. She is having pain all along her left side. She denies any fevers or chills. Pain is worse with movement. It is constant however. She called her surgeon and was told that there is also risk of perforated ulcer. She presents with abdominal pain that is essentially intractable. [facility] Medical History Adult BMI 30.0-30.9 kg/sq m Allergic rhinitis Anxiety and depression Back pain Compression fracture of L5 lumbar vertebra COPD (chronic obstructive pulmonary disease) Hyperlipidemia Hypothyroidism Obstructive sleep apnea Osteoarthritis Osteoporosis Personal history of nicotine dependence Shoulder pain Thyroid disease Vitamin D deficiency Home Medications albuterol sulfate 2 puff INHALATION PRN PRN 09/07/18 [History Last Taken 01/03/20] amitriptyline 50 mg PO QHS #60 tab 09/09/18 [Rx Last Taken 01/02/20] fluticasone furoate 200 mcg-vilanterol 25 mcg/dose inhalation powder 1 inh INHALATION DAILY 08/22/20 [History Last Taken Unknown] levothyroxine 75 mcg tablet 75 mcg PO DAILY 08/22/20 [History Last Taken Unknown] paroxetine HCl 30 mg tablet 30 mg PO DAILY 08/22/20 [History Last Taken Unknown] denosumab 60 mg/mL subcutaneous syringe 60 mg SUBCUT [id number] ml 08/30/20 [History Last Taken Unknown] meloxicam 7.5 mg tablet 7.5 mg PO DAILY PRN 08/30/20 [History Last Taken Unknown] rosuvastatin 5 mg tablet 5 mg PO DAILY tab 08/30/20 [History Last Taken Unknown] Allergy/AdvReac Type Severity Reaction Status Date / Time No Known Allergies Allergy Verified 08/30/20 09:27 Family History Mother Heart disease Surgical History H/O: hysterectomy History of thyroidectomy Social History Smoking Status: Former smoker quit date: 03/17/14 pack-years: 22 alcohol intake: never caffeine: Yes Type: coffee Number of servings: 3 ROS ROS ED ROS Narrative Constitutional: No fever, no chills. HEENT: No sore throat. No neck pain. No loss of vision. No rhinorrhea. Cardiovascular: No chest pain. No palpitations. No pedal edema. Respiratory: No cough, no shortness of breath. Abdominal: Positive left-sided abdominal pain. Positive nausea. No vomiting. Decreased bowel movements. Genitourinary: No dysuria. No hematuria. Musculoskeletal: No myalgias. No arthralgias. Neurologic: No headaches. No dizziness. No lightheadedness. Skin: No rash. No change in color. Psychiatric: No depression. No anxiety. EXAM Physical Exam Narrative Exam Narrative: Afebrile. Vital signs noted. HEENT: Normocephalic. Atraumatic. PERRL, EOMI. Neck soft and supple. No point tenderness or step off. Cardiovascular: Regular rate and rhythm. No murmurs, rubs, or gallops appreciated. Respiratory: No tachypnea. Lungs clear to auscultation bilaterally. Gastrointestinal: Abdomen soft, diffuse tenderness especially on left flank, with normoactive bowel sounds. No rebound or guarding. Neurological: Awake. Alert. Nonfocal, nonlateralizing. Skin: No rash. Normal color. No pallor. Musculoskeletal: No pedal edema. Full range of motion extremities. Const Vital Signs: 08/09/21 15:09 08/09/21 15:12 08/09/21 16:24 Temperature 98.2 F Temperature Source Oral Pulse Rate 90 70 Respiratory Rate 16 16 Respiratory Effort Normal Blood Pressure 95/66 103/76 Blood Pressure Mean 75 85 Pulse Ox 96 Oxygen Delivery Method Room Air Room Air Room Air 08/09/21 16:58 Temperature Temperature Source Pulse Rate 73 Respiratory Rate 14 Respiratory Effort Blood Pressure 103/76 Blood Pressure Mean 85 Pulse Ox 95 Oxygen Delivery Method Room Air MDM MDM MDM Narrative Medical decision making narrative: Comprehensive work-up was pursued. Lab Data Labs: Laboratory Results - last 24 hr 08/09/21 08/09/21 15:49 15:49 WBC 5.3 RBC 4.65 Hgb 13.1 Hct 40.1 MCV 86.2 MCH 28.2 MCHC 32.7 RDW Std Deviation 40.2 RDW Coeff of Gladis 12.8 Plt Count 227 MPV 9.3 Immature Gran % (Auto) 0.400 Neut % (Auto) 54.7 Lymph % (Auto) 32.0 [place] % (Auto) 8.8 Eos % (Auto) 3.0 Baso % (Auto) 1.1 H Absolute Neuts (auto) 2.9 Absolute Lymphs (auto) 1.70 Nucleated RBC % 0 Sodium 138 Potassium 3.7 Chloride 105 Carbon Dioxide 26.0 Anion Gap 7 BUN 15 Creatinine 0.71 Estim Creat Clear Calc 80.92 Est GFR (MDRD) Af Amer 107 Est GFR (MDRD) Non-Af 88 BUN/Creatinine Ratio 21.0 H Glucose 94 Calcium 8.9 Troponin I High Sens < 3 L Radiography Diagnostic Testing: Clinical Impression(s) from Imaging Studies Cervical Spine CT 08/09/21 15:27 IMPRESSION: No acute fracture or subluxation. At C5/C6 left uncovertebral joint hypertrophy produces mild left neural foraminal stenosis. Electronically Signed: Nilay Paige MD at 16:48 EDT Reading Location ID and State: [id number] / [employer] Tel , Service support , Lumbar Spine CT 08/09/21 15:45 IMPRESSION: 1. Chronic mild compression fractures of L1 and L5 without retropulsion into the spinal canal. 2. Mild levoscoliosis and degenerative disc disease as described above. Electronically Signed: Nilay Paige MD at 16:51 EDT Reading Location ID and State: [id number] / [employer] Tel , Service support , Brain CT 08/09/21 16:06 IMPRESSION: Normal unenhanced CT scan of the brain. Electronically Signed: Nilay Paige MD at 16:42 EDT Reading Location ID and State: [id number] / [employer] Tel , Service support , Chest X-Ray 08/09/21 16:10 IMPRESSION: No active disease. Electronically Signed: Nilay Paige MD at 16:42 EDT , Discharge Plan Triage Chief Complaint: Fall ED Midlevel Provider: Sumit Patterson ED Provider: Jamil Mortensen Dx/Rx/DC Orders Prescriptions: No Action rosuvastatin 5 mg tablet 5 mg PO DAILY RF: 0 meloxicam [Mobic] 7.5 mg tablet 7.5 mg PO DAILY PRNRF: 0 Prolia 60 mg/mL syringe 60 mg subcut [id number] RF: 0 levothyroxine 75 mcg tablet 75 mcg PO DAILY RF: 0 paroxetine HCl [Paxil] 30 mg tablet 30 mg PO DAILY RF: 0 Breo Ellipta 200-25 mcg/dose blister with device 1 inh inhalation DAILY RF: 0 albuterol sulfate 8.5 GM HFA aerosol inhaler 2 puff inhalation PRN PRN (Reason: Sob &/Or Wheezing) RF: 0 amitriptyline 25 MG tablet 50 mg PO QHS Qty: 60 RF: 0 Primary Care Provider: Jessica May NP
[2021-08-09 18:33] VITALS: BP 126/78; PULSE 87; RESP 16; O2SAT 99
== END 2021-08-09 18:34 | disposition home or self-care (01) ==
PROVIDERS: Nurse Practitioner; Emergency Provider Emergency Medicine; PCP Nurse Practitioner; Visit Provider Emergency Medicine
DX: R55 Syncope and collapse (principal); J44.9 Chronic obstructive pulmonary disease, unspecified; S16.1XXA Strain of muscle, fascia and tendon at neck level, initial encounter; E78.5 Hyperlipidemia, unspecified; F41.9 Anxiety disorder, unspecified; E03.9 Hypothyroidism, unspecified; G47.33 Obstructive sleep apnea (adult) (pediatric); Z87.891 Personal history of nicotine dependence; W19.XXXA Unspecified fall, initial encounter
CPT/HCPCS: 70450; 71045; 72125; 72131; 80048; 84484; 85025; 93005; 96361; 96374; 96375; 99285; J7030; A4216; J2405

== ENCOUNTER 2021-09-24 15:22 | Observation (INO) | payer MEDICARE, MEDICAID, SELFPAY ==
[2021-09-24] VITALS (10 sets, daily range): BP systolic 82–140; BP diastolic 70–88; PULSE 76–120; RESP 16–20; TEMP 36.2–36.8; O2SAT 94–97; BMI 28.5
--- NOTE | 2021-09-24 15:53 | EKG12_ITS ---
Test Reason : Blood Pressure : / mmHG Vent. Rate : 087 BPM Atrial Rate : 087 BPM P-R Int : 166 ms QRS Dur : 086 ms QT Int : 370 ms P-R-T Axes : 017 -02 030 degrees QTc Int : 445 ms Normal sinus rhythm Normal ECG Confirmed by NOY PUGA, BRENDON ([id number]), research editor LYN CADENA ([id number]) on 09/26/2021 10:43:52 AM Referred By: Herman Confirmed By:BRENDON VILLAFUERTE MD
--- NOTE | 2021-09-24 15:56 | CT_ITS ---
STUDY: CTA HEAD AND NECK WITH CONTRAST AND DEMONSTRATION OF 1701 HOURS ON 09/24/2021 REASON FOR EXAM: 61-year-old female with dizziness. RADIATION DOSAGE (If Supplied By Facility): CTDIvol = ( 31.80 ) mGy, DLP = ( 1401.35 ) mGycm TECHNIQUE: CT angiography was performed with a multi-detector CT scanner. Data acquisition was obtained from the skull base through the vertex following intravenous administration of IV 100mL [id number]-[id number]. MIP images were reconstructed from the axial data set. Post-processing of the angiographic images was performed, with multiplanar reformation and 3D reconstruction. Individualized dose optimization techniques were used for this CT. COMPARISON: No relevant priors. FINDINGS: CT OF THE BRAIN WITHOUT CONTRAST: Normal ventricular system. No midline shift. No evidence of ischemic or hemorrhagic cerebral infarct. No intracranial neoplasms. No subdural, epidural, intracerebral hematoma, hemorrhage or contusion. Normal caliber sinuses. CT ANGIOGRAPHY OF THE BRAIN: Normal bilateral petrous carotid arteries. Normal right cavernous carotid artery with a normal supraclinoid bifurcation. Normal left cavernous carotid artery with a normal supraclinoid bifurcation. Normal right A1 segments of the anterior cerebral artery. Normal left A1 segments of the anterior cerebral artery. Normal intact anterior communicating artery (ACOM). Normal bilateral A2 segments of the anterior cerebral arteries. Normal right M1 and M2 segments of the middle cerebral arteries, with a normal M1 bifurcation. Normal left M1 and M2 segments of the middle cerebral arteries, with a normal M1 bifurcation. Normal right posterior communicating artery (PCOM). Normal left posterior communicating artery (PCOM). Normal bilateral vertebral arteries. Normal basilar artery with a normal basilar bifurcation. The visualized bilateral superior cerebellar (SCA) arteries are normal. Normal bilateral P1, P2 and visualized P3 segments of the posterior cerebral arteries. There is no demonstrated aneurysm of the ramona of [place]. There is no demonstrated abnormality of the visualized brain. AORTIC ARCH: Normal visualized aortic arch. Normal origins of the brachiocephalic, left common carotid, and left subclavian arteries. RIGHT CAROTID ARTERIES: Normal right common carotid artery (CCA). Normal right common carotid bulb. Normal origin of the right internal carotid (ICA) artery without a hemodynamically significant stenosis. Normal visualized cervical portion of the right internal carotid artery. Normal origin of the right external carotid artery (ECA). LEFT CAROTID ARTERIES: Normal left common carotid artery (CCA). Normal left common carotid bulb. Normal origin of the left internal carotid (ICA) artery without a hemodynamically significant stenosis. Normal visualized cervical portion of the left internal carotid artery. Normal origin of the left external carotid artery (ECA). VERTEBRAL ARTERIES: Normal bilateral vertebral arteries. CT/CTA Head AND Neck W/ Contrast IMPRESSION: 1. Normal non-contrast CT scan of the brain. 2. Normal CTA Head and neck with contrast. Electronically Signed: Jayden Gregg MD at 18:10 EDT ,
--- NOTE | 2021-09-24 15:58 | EDS_ITS ---
HPI History of Present Illness Chief Complaint: Shortness of Breath Informant: patient and family Onset/Context/Timing Onset: Weeks Context: sudden Timing: Intermittent Current Severity: Gone Maximum Severity: Mild Worsened by: Nothing Relieved by: Nothing Narrative Narrative: 61-year-old female history of COPD, anxiety, thyroid cancer. States she has had intermittent shortness of breath and dizzy spells for the last several weeks. She 1 episode where she passed out was brought in the emergency department and had an unremarkable work-up she was discharged to home. She does get dizzy says is not vertigo is not room spinning. She denies any headache. Denies any chest pain. No hemoptysis. No recent travel, surgery or immobilization. No leg pain or swelling. Prior similar symptoms: Yes Recent Illness/Hospitalization: No PFSH PFS Medical History Adult BMI 30.0-30.9 kg/sq m Allergic rhinitis Anxiety and depression Back pain Compression fracture of L5 lumbar vertebra COPD (chronic obstructive pulmonary disease) Hyperlipidemia Hypothyroidism Obstructive sleep apnea Osteoarthritis Osteoporosis Personal history of nicotine dependence Shoulder pain Thyroid disease Vitamin D deficiency Home Medications albuterol sulfate 90 mcg/actuation aerosol inhaler 2 puff inhalation PRN PRN Sob &/Or Wheezing 09/07/18 [History Last Taken 01/03/20] amitriptyline 25 mg tablet 50 mg PO QHS #60 tabs 09/09/18 [Rx Last Taken 01/02/20] fluticasone furoate 200 mcg-vilanterol 25 mcg/dose inhalation powder (Breo Ellipta) 1 inh inhalation DAILY 08/22/20 [History Last Taken Unknown] levothyroxine 75 mcg tablet 75 mcg PO DAILY 08/22/20 [History Last Taken Unknown] paroxetine HCl 30 mg tablet (Paxil) 30 mg PO DAILY 08/22/20 [History Last Taken Unknown] denosumab 60 mg/mL subcutaneous syringe 60 mg subcut [id number] 08/30/20 [History Last Taken Unknown] meloxicam 7.5 mg tablet (Mobic) 7.5 mg PO DAILY PRN 08/30/20 [History Last Taken Unknown] rosuvastatin 5 mg tablet 5 mg PO DAILY 08/30/20 [History Last Taken Unknown] oxycodone-acetaminophen 5 mg-325 mg tablet (Percocet) 1 tab PO Q6H PRN pain 2 days #7 tabs 08/09/21 [Rx Last Taken Unknown] Allergy/AdvReac Type Severity Reaction Status Date / Time No Known Allergies Allergy Verified 08/30/20 09:27 Family History Mother Heart disease Surgical History H/O: hysterectomy History of thyroidectomy Social History Smoking Status: Former smoker quit date: 03/17/14 pack-years: 22 alcohol intake: never caffeine: Yes Type: coffee Number of servings: 3 ROS ROS ED ROS Narrative Dizziness and intermittent shortness of breath. Review of Systems ROS Unobtainable: Denies due to encephalopathy Constitutional Constitutional ED: Denies chills Eyes Eyes: Denies blurry vision ENT ENT ED: Denies ear pain Cardiovascular Cardiovascular: Denies chest pain Respiratory/Chest Respiratory/Chest: Reports dyspnea; Denies cough Gastrointestinal Gastrointestinal: Denies abdominal pain Genitourinary Genitourinary ED: Denies dysuria Musculoskeletal Musculoskeletal: Denies arthralgias Integumentary Denies abscess Neurologic Neurologic: Denies headache(s) Psychiatric Psychiatric: Denies anxiety Endocrine Endocrinology: Denies cold intolerance Hematologic/Lymphatic Hematologic/Lymphatic: Denies easy bleeding Allergic/Immunologic Allergic/Immunologic ED: Denies mouth swelling EXAM Physical Exam Narrative Exam Narrative: 61-year-old female no acute distress vital signs stable afebrile. H EENT exam unremarkable. Normal speech. No facial droop. No trauma. TMs and canals are clear bilaterally. No wax. Neck nontender. Lungs clear to auscultation bilaterally. Heart regular rhythm no murmur. Abdomen soft nontender normal bowel sounds no peritoneal signs. Moving all 4 extremities. Neurologically she is awake alert with no focal motor deficits. NIH of 0. Fingertip to nose within normal limits. Bilateral equal 5-5 engine lathe tender strength. Dorsi plantarflexion intact. Const Vital Signs: 09/24/21 15:23 09/24/21 15:54 09/24/21 15:55 Temperature 98.2 F Temperature Source Temporal Pulse Rate 110 H 96 Pulse Rate [Lying] Pulse Rate [Sitting (for 1 minute prior to obtaining)] Pulse Rate [Standing (for 1 minute prior to obtaining)] Respiratory Rate 17 16 Respiratory Effort Respiratory Depth Respiratory Pattern Blood Pressure 117/88 H 135/75 H Blood Pressure [Lying] Blood Pressure [Sitting (for 1 minute prior to obtaining)] Blood Pressure [Standing (for 1 minute prior to obtaining)] Blood Pressure Mean 97 95 Blood Pressure Mean [Lying] Blood Pressure Mean [Sitting (for 1 minute prior to obtaining)] Blood Pressure Mean [Standing (for 1 minute prior to obtaining)] Pulse Ox 95 95 94 Oxygen Delivery Method Room Air Room Air Room Air 09/24/21 15:56 09/24/21 16:40 09/24/21 17:27 Temperature Temperature Source Pulse Rate 91 Pulse Rate [Lying] 89 Pulse Rate [Sitting (for 1 minute prior to obtaining)] 105 H Pulse Rate [Standing (for 1 minute prior to obtaining)] 120 H Respiratory Rate 16 Respiratory Effort Normal Respiratory Depth Normal Respiratory Pattern Normal Blood Pressure 139/76 H Blood Pressure [Lying] 125/79 H Blood Pressure [Sitting (for 1 minute prior to obtaining)] 112/83 H Blood Pressure [Standing (for 1 minute prior to obtaining)] 82/70 L Blood Pressure Mean 97 Blood Pressure Mean [Lying] 94 Blood Pressure Mean [Sitting (for 1 minute prior to obtaining)] 92 Blood Pressure Mean [Standing (for 1 minute prior to obtaining)] 74 Pulse Ox 96 Oxygen Delivery Method Room Air Room Air 09/24/21 19:49 Temperature Temperature Source Pulse Rate 76 Pulse Rate [Lying] Pulse Rate [Sitting (for 1 minute prior to obtaining)] Pulse Rate [Standing (for 1 minute prior to obtaining)] Respiratory Rate 20 H Respiratory Effort Respiratory Depth Respiratory Pattern Blood Pressure 140/77 H Blood Pressure [Lying] Blood Pressure [Sitting (for 1 minute prior to obtaining)] Blood Pressure [Standing (for 1 minute prior to obtaining)] Blood Pressure Mean 98 Blood Pressure Mean [Lying] Blood Pressure Mean [Sitting (for 1 minute prior to obtaining)] Blood Pressure Mean [Standing (for 1 minute prior to obtaining)] Pulse Ox 97 Oxygen Delivery Method Room Air Positive well nourished and well developed; Negative for obese, cachectic, contractures or unkempt General Appearance ED: well developed; Negative for unkempt, cachectic or contractures Nutritional Appearance: Negative for cachectic or obese HEENT Reports TM's clear and moist mucous membranes; Denies dry mucous membranes or other atraumatic; Negative for trauma, tenderness or other Tympanic Membrane ED: Yes TM's clear Mouth ED: No dry mucous membranes Mouth: No dry mucous membranes Eyes PERRL and EOMs intact bilaterally General Eye ED: Negative for pale conjunctiva or scleral icterus Neck no lymphadenopathy, supple, no meningeal signs and no JVD General: Negative for tenderness Lymph Lymphatic: Negative for other Chest Wall Chest: other Resp normal respiratory effort and clear to auscultation bilaterally Auscultation: Negative for rales, rhonchi, wheezes or diminished lung sounds Cardio regular rate, regular rhythm, S1 normal heart sound, S2 normal heart sound and no murmurs Rate: Negative for bradycardia Rhythm: Negative for abnormal rhythm GI non-tender, non-distended and no masses Auscultation: normoactive bowel sounds; Negative for hyperactive bowel sounds or hypoactive bowel sounds Palpation: soft; Negative for tender, guarding, hepatomegaly or splenomegaly Back/Spine no CVA tenderness and normal to inspection General Back: Negative for CVA tenderness Extremity normal to inspection General Extremety ED: Negative for edema or tenderness General Extremity: Negative for edema Neuro oriented x3 and CN's II-XII intact bilaterally Sensorium / Orientation: alert, oriented to person, oriented to place and oriented to time; Negative for orientation impaired, confused, lethargic or stuporous Speech: Negative for speech normal Motor Exam: strength 5/5 throughout Psych mental status grossly normal Appearance: Negative for unkempt Attitude: No agitated Mood & Affect: Negative for depressed Thought Process: normal thought process Skin no wounds General Skin Exam: Negative for jaundice Lesions: No no lesions Rashes: no rashes Trauma: Negative for abrasion MDM MDM MDM Narrative Medical decision making narrative: 61-year-old with dizziness. Exam benign. CAT scan labs pending. Labs unremarkable. Orthostatic vital signs positive. Patient after given a liter of fluid relays had no improvement in her symptoms. Daughters are concerned that she has had multiple falls and near falls at home. I will speak to the hospitalist about admission. Repeat exam at 2014 p.m. is unchanged. Lab Data Attestation: I reviewed the patient's lab results. Lab results narrative: CBC shows a white count of 4. H&H 13 and 40. Its unremarkable. Electrolytes show a gap of 9. Normal BUN of 13 normal creatinine 0.6. Glucose is 91. Troponin less than 3. Labs are unremarkable. Orthostatic vital signs were definitely positive standing. With symptoms. And significant change in blood pressure and heart rate. Labs: Laboratory Results - last 24 hr 09/24/21 09/24/21 16:15 16:15 WBC 4.8 RBC 4.85 Hgb 13.5 Hct 40.5 MCV 83.5 MCH 27.8 MCHC 33.3 RDW Std Deviation 38.8 RDW Coeff of Gladis 12.9 Plt Count 246 MPV 8.8 Immature Gran % (Auto) 0.200 Neut % (Auto) 48.4 Lymph % (Auto) 35.5 [place] % (Auto) 12.3 H Eos % (Auto) 2.3 Baso % (Auto) 1.3 H Absolute Neuts (auto) 2.3 Absolute Lymphs (auto) 1.70 Nucleated RBC % 0 Sodium 140 Potassium 3.5 Chloride 107 Carbon Dioxide 24.0 Anion Gap 9 BUN 13 Creatinine 0.65 Estim Creat Clear Calc 88.39 Est GFR (MDRD) Af Amer 120 Est GFR (MDRD) Non-Af 99 BUN/Creatinine Ratio 20.1 H Glucose 91 Calcium 9.1 Troponin I High Sens < 3 L Radiography Chest X-Ray - ED: 1 View, Read by ED Physician, Read by Radiologist, Heart, Lungs, Mediastinum, Bony Structures, No Acute Disease and Chronic Changes Diagnostic Testing: Clinical Impression(s) from Imaging Studies Head/Neck CTA 09/24/21 15:56 IMPRESSION: 1. Normal non-contrast CT scan of the brain. 2. Normal CTA Head and neck with contrast. Electronically Signed: Jayden Gregg MD at 18:10 EDT , Chest X-Ray 09/24/21 16:18 IMPRESSION: Normal x-ray examination of the chest. Electronically Signed: Nilay Paige MD at 16:47 EDT , Chest x-ray, portable, single view shows no acute abnormality. Normal cardiac silhouette. Normal lung calvo. Interpreted both by myself and the radiologist. Rhythm Strip Rhythm Strip: Sinus Rhythm Rate: 87 Ectopy: None EKG Initial EKG: Attestation: I personally reviewed and interpreted this EKG as follows: Interpretation: Sinus Rhythm and No Acute Injury Pattern Comments: Normal sinus rhythm rate 87 no acute signs of [place] no ischemia no dysrhythmia. Discharge Plan Triage Chief Complaint: Shortness of Breath ED Provider: Gregorio Redd Dx/Rx/DC Orders Clinical Impression: Orthostatic hypotension, Falls, History of COPD Prescriptions: No Action rosuvastatin 5 mg tablet 5 mg PO DAILY meloxicam [Mobic] 7.5 mg tablet 7.5 mg PO DAILY PRN Prolia 60 mg/mL syringe 60 mg subcut [id number] levothyroxine 75 mcg tablet 75 mcg PO DAILY paroxetine HCl [Paxil] 30 mg tablet 30 mg PO DAILY Breo Ellipta 200-25 mcg/dose blister with device 1 inh inhalation DAILY albuterol sulfate 8.5 GM HFA aerosol inhaler 2 puff inhalation PRN PRN (Reason: Sob &/Or Wheezing) Label Comments: Inhale 2 puffs three times daily. amitriptyline 25 MG tablet 50 mg PO QHS Qty: 60 0RF oxycodone-acetaminophen [Percocet] 5-325 mg tablet 1 tab PO Q6H PRN (Reason: pain) 2 Days Qty: 7 0RF Primary Care Provider: Jessica May NP Referrals: Jessica May NP, POWER BENDER OPERATOR-C [Primary Care Provider] - Disposition Disposition: Acute Care Hospital [facility]
[2021-09-24] MEDS: Aspirin 81 MG TAB.CHEW 324 MG PO (16:07)
--- NOTE | 2021-09-24 16:18 | RAD_ITS ---
STUDY: X-RAY CHEST REASON FOR EXAM: Female, 61 years old. chest pain TECHNIQUE: Single AP portable view of the chest. COMPARISON: 01/03/2020 FINDINGS: The lungs are clear and expanded. There is no demonstrated pleural abnormality. Normal size heart. Normal mediastinum and tony. Normal visualized pulmonary arteries. Normal visualized aortic arch and descending thoracic aorta. Dorsal column spinal stimulator in the lower thoracic spine. Normal visualized ribs, clavicles, and shoulders. There is no demonstrated abnormality of the visualized soft tissue structures of the upper abdomen. RAD/Chest 1 View (Portable) IMPRESSION: Normal x-ray examination of the chest. Electronically Signed: Nilay Paige MD at 16:47 EDT ,
[2021-09-24 16:22] LABS: Absolute Neutrophil Count 2.3 X10^3/uL (2.0-7.7); Basophil# 0.06 X10^3/uL; Basophil% 1.3 % (0-1); Eosinophil# 0.11 X10^3/uL; Eosinophils% 2.3 % (0-5); Hematocrit 40.5 % (37-47); Hemoglobin 13.5 g/dL (12.0-15.0); Lymphocyte % 35.5 % (19-41); Mean Corp Hgb Conc 33.3 g/dL (32-36); Mean Corpuscular Hgb 27.8 pg (27.0-32.0); Mean Corpuscular Volume 83.5 fL (81-99); Mean Platelet Vol. 8.8 fl (6.2-12.0); Monocyte# 0.59 X10^3/uL; Monocyte% 12.3 % (0-10); NRBC Flagged by Analyzer 0 % (0-5); Neutrophil # 2.32 X10^3/uL (2.7-7.7); Neutrophil % 48.4 % (47-70); Platelet Count 246 K/mm3 (150-450); RBC Distribution Width CV 12.9 % (11.6-14.6); RBC Distribution Width SD 38.8 fl (35.1-43.9); Red Blood Count 4.85 M/mm3 (4.2-5.4); White Blood Count 4.8 K/mm3 (4.4-11.0)
[2021-09-24 16:40] LABS: Anion Gap 9 (5-15); BUN 13 mg/dL (7-18); BUN/Creat Ratio 20.1 RATIO (10-20); Calcium,Total 9.1 mg/dL (8.5-10.1); Chloride 107 mmol/L (98-107); Creatinine, Serum 0.65 mg/dL (0.55-1.02); EST Glomerular Filtration Rate 99 mL/min (>60); Est Glom Filt Rate - Afr Amer 120 mL/min (>60); Estimated Creatinine Clearance 88.39 ml/min; Glucose 91 mg/dL (74-106); Potassium 3.5 mmol/L (3.5-5.1); Sodium Level 140 mmol/L (136-145); Troponin-I HS < 3 pg/mL (3.0-54.0)
[2021-09-24] MEDS: 0.9% Normal Saline 1,000 ML 999 ML IV (16:54)
--- NOTE | 2021-09-24 20:44 | PCM.HP.STD ---
HPI - General General Date of Admission: 09/24/21 Date of Service: 09/24/21 Chief Complaint: dizziness HPI Narrative PINA ORTEGA, is a 61 F who presents to the emergency room with a chief complaint of dizziness. Onset of symptoms began approximately 3 weeks ago but have worsened today. Patient has significant past medical history of thyroid cancer status post left thyroidectomy in 2006 and has had been monitored since that time. She also has a history of COPD and sleep apnea for which she normally uses CPAP device however recently she stopped using this due to a recall on her machine. The patient denies chest pain, shortness of breath and/or fevers or chills. Laboratory studies and chest x-ray are unremarkable however when the patient stood up she became dizzy and lightheaded with positive orthostatic vital signs. Patient will be admitted for observation overnight for orthostatic hypotension. [facility] Medical History Adult BMI 30.0-30.9 kg/sq m Allergic rhinitis Anxiety and depression Back pain Compression fracture of L5 lumbar vertebra COPD (chronic obstructive pulmonary disease) Hyperlipidemia Hypothyroidism Obstructive sleep apnea Osteoarthritis Osteoporosis Personal history of nicotine dependence Shoulder pain Thyroid disease Vitamin D deficiency Home Medications albuterol sulfate 90 mcg/actuation aerosol inhaler 2 puff inhalation PRN PRN Sob &/Or Wheezing 09/07/18 [History Last Taken 01/03/20] amitriptyline 25 mg tablet 50 mg PO QHS #60 tabs 09/09/18 [Rx Last Taken 01/02/20] fluticasone furoate 200 mcg-vilanterol 25 mcg/dose inhalation powder (Breo Ellipta) 1 inh inhalation DAILY 08/22/20 [History Last Taken Unknown] levothyroxine 75 mcg tablet 75 mcg PO DAILY 08/22/20 [History Last Taken Unknown] paroxetine HCl 30 mg tablet (Paxil) 30 mg PO DAILY 08/22/20 [History Last Taken Unknown] denosumab 60 mg/mL subcutaneous syringe 60 mg subcut [id number] 08/30/20 [History Last Taken Unknown] meloxicam 7.5 mg tablet (Mobic) 7.5 mg PO DAILY PRN Pain 08/30/20 [History Last Taken Unknown] rosuvastatin 5 mg tablet 5 mg PO DAILY 08/30/20 [History Last Taken Unknown] Allergy/AdvReac Type Severity Reaction Status Date / Time No Known Allergies Allergy Verified 08/30/20 09:27 Family History Mother Heart disease Surgical History H/O: hysterectomy History of thyroidectomy Social History Smoking Status: Former smoker quit date: 03/17/14 pack-years: 22 alcohol intake: never caffeine: Yes Type: coffee Number of servings: 3 ROS Constitutional Constitutional: Denies change in weight Eyes Eyes: Denies blurry vision ENT HEENT: Denies abnormal hearing Cardiovascular Cardiovascular: Denies chest pain Respiratory/Chest Respiratory/Chest: Denies cough Gastrointestinal Gastrointestinal: Denies abdominal pain Genitourinary Genitourinary: Denies hematuria Vital Signs Vital Signs Vital Signs: 09/24/21 15:23 09/24/21 15:54 09/24/21 15:55 Temperature 98.2 F Temperature Source Temporal Pulse Rate 110 H 96 Pulse Rate [Lying] Pulse Rate [Sitting (for 1 minute prior to obtaining)] Pulse Rate [Standing (for 1 minute prior to obtaining)] Respiratory Rate 17 16 Respiratory Effort Respiratory Depth Respiratory Pattern Blood Pressure 117/88 H 135/75 H Blood Pressure [Lying] Blood Pressure [Sitting (for 1 minute prior to obtaining)] Blood Pressure [Standing (for 1 minute prior to obtaining)] Blood Pressure Mean 97 95 Blood Pressure Mean [Lying] Blood Pressure Mean [Sitting (for 1 minute prior to obtaining)] Blood Pressure Mean [Standing (for 1 minute prior to obtaining)] Pulse Ox 95 95 94 Oxygen Delivery Method Room Air Room Air Room Air 09/24/21 15:56 09/24/21 16:40 09/24/21 17:27 Temperature Temperature Source Pulse Rate 91 Pulse Rate [Lying] 89 Pulse Rate [Sitting (for 1 minute prior to obtaining)] 105 H Pulse Rate [Standing (for 1 minute prior to obtaining)] 120 H Respiratory Rate 16 Respiratory Effort Normal Respiratory Depth Normal Respiratory Pattern Normal Blood Pressure 139/76 H Blood Pressure [Lying] 125/79 H Blood Pressure [Sitting (for 1 minute prior to obtaining)] 112/83 H Blood Pressure [Standing (for 1 minute prior to obtaining)] 82/70 L Blood Pressure Mean 97 Blood Pressure Mean [Lying] 94 Blood Pressure Mean [Sitting (for 1 minute prior to obtaining)] 92 Blood Pressure Mean [Standing (for 1 minute prior to obtaining)] 74 Pulse Ox 96 Oxygen Delivery Method Room Air Room Air 09/24/21 19:49 Temperature Temperature Source Pulse Rate 76 Pulse Rate [Lying] Pulse Rate [Sitting (for 1 minute prior to obtaining)] Pulse Rate [Standing (for 1 minute prior to obtaining)] Respiratory Rate 20 H Respiratory Effort Respiratory Depth Respiratory Pattern Blood Pressure 140/77 H Blood Pressure [Lying] Blood Pressure [Sitting (for 1 minute prior to obtaining)] Blood Pressure [Standing (for 1 minute prior to obtaining)] Blood Pressure Mean 98 Blood Pressure Mean [Lying] Blood Pressure Mean [Sitting (for 1 minute prior to obtaining)] Blood Pressure Mean [Standing (for 1 minute prior to obtaining)] Pulse Ox 97 Oxygen Delivery Method Room Air Weight Weight: 192 lb Body Mass Index (BMI) 30.0 Physical Exam Const oriented x3, no apparent distress and well nourished General Appearance: cooperative HEENT normocephalic Eyes PERRL and EOMs intact bilaterally Neck nuchal rigidity Lymph Lymphatic: no lymphadenopathy noted Resp normal respiratory effort and normal air movement Cardio regular rate, regular rhythm, S1 normal heart sound, S2 normal heart sound and no murmurs GI soft to palpation Extremity normal capillary refill Skin General Skin Exam: no breakdown Neuro CN's II-XII intact bilaterally Results Lab / Micro Data Result Diagrams: 09/24/21 16:15 09/24/21 16:15 Labs: Laboratory Results - last 24 hr 09/24/21 16:15: WBC 4.8, RBC 4.85, Hgb 13.5, Hct 40.5, MCV 83.5, MCH 27.8, MCHC 33.3, RDW Std Deviation 38.8, RDW Coeff of Gladis 12.9, Plt Count 246, MPV 8.8, Immature Gran % (Auto) 0.200, Neut % (Auto) 48.4, Lymph % (Auto) 35.5, [place] % (Auto) 12.3 H, Eos % (Auto) 2.3, Baso % (Auto) 1.3 H, Absolute Neuts (auto) 2.3, Absolute Lymphs (auto) 1.70, Nucleated RBC % 0 09/24/21 16:15: Sodium 140, Potassium 3.5, Chloride 107, Carbon Dioxide 24.0, Anion Gap 9, BUN 13, Creatinine 0.65, Estim Creat Clear Calc 88.39, Est GFR (MDRD) Af Amer 120, Est GFR (MDRD) Non-Af 99, BUN/Creatinine Ratio 20.1 H, Glucose 91, Calcium 9.1, Troponin I High Sens < 3 L Rhythm Strip Rhythm Strip: Sinus Rhythm Rate: 87 Ectopy: None Radiology Impression Head/Neck CTA 09/24/21 15:56 IMPRESSION: 1. Normal non-contrast CT scan of the brain. 2. Normal CTA Head and neck with contrast. Electronically Signed: Jayden Gregg MD at 18:10 EDT , Chest X-Ray 09/24/21 16:18 IMPRESSION: Normal x-ray examination of the chest. Electronically Signed: Nilay Paige MD at 16:47 EDT , Assessment & Plan Assessment/Plan (1) Orthostatic hypotension: (2) History of COPD: (3) Shortness of breath: (4) Hyperlipidemia: (5) Thyroid cancer: (6) Falls: PLAN: Plan 1. Orthostatic hypotension?admit patient to general medical floor for observation, iv normal saline at 125cc/hour repeat orthostatic vitals overnight. consider trial of florinef in am. Rewpeat BMP in am 2. Hypothyroid- continue synthroid 3. fall risk -- consider PT eval in am if orthostatics do not improve 4. Hyperli[pidemia- continue statin. 5. DVT prophylaxis- LMWH Charges/Coding Visit Charges OBSV E&M: 32620 Initial observation care L2
[2021-09-24] MEDS: 0.9% Normal Saline 1,000 ML 125 ML IV (22:19)
[2021-09-24] MEDS: 0.9% Saline Lock 10 ML Syringe IV (22:25)
[2021-09-24] MEDS: Atorvastatin Calcium 10 MG Tablet PO (22:36)
[2021-09-24] MEDS: Amitriptyline 25 MG Tablet 50 MG PO (22:36)
[2021-09-25] VITALS (8 sets, daily range): BP systolic 107–124; BP diastolic 66–80; PULSE 82–99; RESP 16–18; TEMP 36.4–37.1; O2SAT 94–99
[2021-09-25] MEDS: Levothyroxine 75 MCG Tablet PO (05:58)
[2021-09-25] MEDS: 0.9% Normal Saline 1,000 ML 125 ML IV (05:58)
[2021-09-25 06:07] LABS: Anion Gap 6 (5-15); BUN 8 mg/dL (7-18); BUN/Creat Ratio 13.3 RATIO (10-20); Chloride 112 mmol/L (98-107); EST Glomerular Filtration Rate 108 mL/min (>60); Est Glom Filt Rate - Afr Amer 131 mL/min (>60); Estimated Creatinine Clearance 95.75 ml/min; Glucose 91 mg/dL (74-106); Potassium 3.8 mmol/L (3.5-5.1); Sodium Level 144 mmol/L (136-145)
[2021-09-25] MEDS: Budesonide Respules 0.5 MG/2 ML AMPUL.NEB. INHALATION (07:26)
[2021-09-25] MEDS: Albuterol 2.5 MG/3 ML VIAL.NEB. INHALATION ×2 (07:26→13:08)
[2021-09-25] MEDS: Enoxaparin 40 MG/0.4 ML Syringe SC (07:50)
[2021-09-25] MEDS: PARoxetine 10 MG Tablet 30 MG PO (07:50)
[2021-09-25] MEDS: 0.9% Saline Lock 10 ML Syringe IV (10:22)
[2021-09-25] MEDS: Meloxicam 7.5 MG Tablet PO (12:05)
--- NOTE | 2021-09-25 15:32 | PCM.DC ---
Discharge Instructions Diet Discharge Diet: No restrictions Activity Discharge Activity: Return to Normal Activity Weight Bearing Status: Weight bearing as tolerated Follow Up Care Test Results: Test results from this visit will be discussed in further detail at your follow-up appointment, if applicable. Discharge Plan Admission Admit Date/Time: 09/24/21 21:06 Primary Reason for Your Visit: Low blood pressure, debility Attending Provider: Eben Olivares Primary Care Provider: Jessica May NP Consulting Providers: Sumit Chacon Discharge Orders/Prescriptions Prescriptions: Continued rosuvastatin 5 mg tablet 5 mg PO DAILY meloxicam [Mobic] 7.5 mg tablet 7.5 mg PO DAILY PRN (Reason: Pain) denosumab 60 mg/mL syringe 60 mg subcut [id number] levothyroxine 75 mcg tablet 75 mcg PO DAILY paroxetine HCl [Paxil] 30 mg tablet 30 mg PO DAILY Breo Ellipta 200-25 mcg/dose blister with device 1 inh inhalation DAILY albuterol sulfate 8.5 GM HFA aerosol inhaler 2 puff inhalation PRN PRN (Reason: Sob &/Or Wheezing) Label Comments: Inhale 2 puffs three times daily. amitriptyline 25 MG tablet 50 mg PO QHS Qty: 60 0RF Referrals / Follow Up: Jessica May NP, [employer] [Primary Care Provider] - Within 2 Weeks Disposition Disposition (needs filled in before D/C Order can be placed): Home, Self Care
--- NOTE | 2021-09-25 18:31 | PCM.DC.SUM ---
Providers Date of Admission: 09/24/21 Date of Discharge: 09/25/21 Primary Care Physician: MADELYN Gilliam Reason For Visit: ORTHOSTATIC HYPOTENSION Diagnosis Discharge Diagnosis (1) Orthostatic hypotension: Status: Acute Code(s): I95.1 - Orthostatic hypotension (2) History of COPD: Status: Chronic Code(s): Z87.09 - Personal history of other diseases of the respiratory system (3) Shortness of breath: Status: Acute Code(s): R06.02 - Shortness of breath (4) Hyperlipidemia: Status: Chronic Code(s): E78.5 - Hyperlipidemia, unspecified (5) Thyroid cancer: Status: Chronic Code(s): C73 - Malignant neoplasm of thyroid gland (6) Falls: Status: Acute Code(s): W19.XXXA - Unspecified fall, initial encounter Plan Final diagnosis: #1 orthostatic hypotension-etiology unclear #2 dyspnea-etiology unknown #3 hyperlipidemia #4 chronic obstructive pulmonary disease #5 chronic depression Medications at Discharge Home Medications albuterol sulfate 90 mcg/actuation aerosol inhaler 2 puff inhalation PRN PRN Sob &/Or Wheezing 09/07/18 amitriptyline 25 mg tablet 50 mg PO QHS #60 tabs 09/09/18 fluticasone furoate 200 mcg-vilanterol 25 mcg/dose inhalation powder (Breo Ellipta) 1 inh inhalation DAILY copd 08/22/20 levothyroxine 75 mcg tablet 75 mcg PO DAILY thyroid 08/22/20 paroxetine HCl 30 mg tablet (Paxil) 30 mg PO DAILY depression 08/22/20 denosumab 60 mg/mL subcutaneous syringe 60 mg subcut [id number] bones 08/30/20 meloxicam 7.5 mg tablet (Mobic) 7.5 mg PO DAILY PRN Pain 08/30/20 rosuvastatin 5 mg tablet 5 mg PO DAILY cholesterol 08/30/20 Hospital Course Operations None Procedures None Summary of Care Provided Minutes Spent on Discharge: 30 Hospital Course: This 61-year-old white female was seen in the emergency room at [facility] with a chief complaint of dizziness and intermittent shortness of breath times several weeks. Work-up in the emergency room revealed her NIH score to be 0, patient's labs were unremarkable. CTA of the head and neck was unremarkable, patient's chest x-ray was unremarkable. When the patient stood up in the emergency room and tried to ambulate, she became dizzy and lightheaded with positive orthostatic vital signs. Patient was placed into observation on MedSurg 3, she was given IV fluids, and seen by PT and OT. Patient's symptoms resolved. On 09/25/2021, patient was seen and examined: On examination she appeared in good health and spirits, she does not appear to be in any distress. Vital signs as documented. Skin warm and dry and without overt rashes. Neck without JVD, thyroid appears normal, trachea is midline, neck is supple. Lungs clear, normal air movement was noted. Heart exam notable for regular rhythm, normal sounds and absence of murmurs, rubs or gallops. Abdomen unremarkable and without evidence of organomegaly, masses, or abdominal aortic enlargement, bowel sounds are present in all 4 quadrants, no abdominal tenderness was noted. Extremities nonedematous, no cyanosis was noted, no clubbing was noted. Neuro: Cranial nerves II through XII are grossly intact, no focal motor deficits were noted, sensation to light touch and pinprick is intact, motor exam 5/5 throughout. Psych: Patient is alert and oriented x3, she does not appear anxious or depressed, she does not appear agitated. Patient was felt to be stable for discharge home on 09/25/2021. Weight / BMI Weight Weight: 82.554 kg Body Mass Index (BMI) 28.5 ABG / Lab / Microbiology Data Result Diagrams: 09/24/21 16:15 09/25/21 05:24 Laboratory: Laboratory Results - last 24 hr 09/25/21 05:24: Sodium 144, Potassium 3.8, Chloride 112 H, Carbon Dioxide 26.0, Anion Gap 6, BUN 8, Creatinine 0.60, Estim Creat Clear Calc 95.75, Est GFR (MDRD) Af Amer 131, Est GFR (MDRD) Non-Af 108, BUN/Creatinine Ratio 13.3, Glucose 91, Calcium 8.0 L D/C Instructions Discharge Diet: No restrictions Weight Bearing Status: Weight bearing as tolerated Meaningful Use Info Meaningful Use Diagnoses (Choose all that apply): None applicable Discharge Plan Admission Admit Date/Time: 09/24/21 21:06 Primary Reason for Your Visit: Low blood pressure, debility Attending Provider: Eben Olivares Primary Care Provider: Jessica May NP Consulting Providers: Sumit Chacon Discharge Orders/Prescriptions Prescriptions: Continued rosuvastatin 5 mg tablet 5 mg PO DAILY meloxicam [Mobic] 7.5 mg tablet 7.5 mg PO DAILY PRN (Reason: Pain) denosumab 60 mg/mL syringe 60 mg subcut [id number] levothyroxine 75 mcg tablet 75 mcg PO DAILY paroxetine HCl [Paxil] 30 mg tablet 30 mg PO DAILY Breo Ellipta 200-25 mcg/dose blister with device 1 inh inhalation DAILY albuterol sulfate 8.5 GM HFA aerosol inhaler 2 puff inhalation PRN PRN (Reason: Sob &/Or Wheezing) Label Comments: Inhale 2 puffs three times daily. amitriptyline 25 MG tablet 50 mg PO QHS Qty: 60 0RF Referrals / Follow Up: Jessica May NP, [employer] [Primary Care Provider] - Within 2 Weeks Disposition Disposition (needs filled in before D/C Order can be placed): Home, Self Care Charges/Coding Visit Charges OBSV E&M: 25265 Observation care discharge
== END 2021-09-25 16:35 | disposition home or self-care (01) ==
LOC: ED 20:42 → MS3 21:23
PROVIDERS: Admitting Provider Family Medicine; Emergency Provider Emergency Medicine; PCP Nurse Practitioner; Visit Provider Internal Medicine
DX: I95.1 Orthostatic hypotension (principal); J44.9 Chronic obstructive pulmonary disease, unspecified; C73 Malignant neoplasm of thyroid gland; F32.A Depression, unspecified; F41.9 Anxiety disorder, unspecified; E78.5 Hyperlipidemia, unspecified; Z87.891 Personal history of nicotine dependence; Z79.899 Other long term (current) drug therapy; Z79.51 Long term (current) use of inhaled steroids; Z79.890 Hormone replacement therapy; M19.90 Unspecified osteoarthritis, unspecified site; G47.33 Obstructive sleep apnea (adult) (pediatric)
CPT/HCPCS: 36415; 70496; 70498; 71045; 80048; 84484; 85025; 93005; 94640; 96360; 96361; 96372; 97161; 99218; 99285; J7030; Q9967; A4216; G0378

== ENCOUNTER → 2023-07-29 | Outpatient (CLI) | payer MEDICARE, SELFPAY ==
[2023-07-29 16:55] LABS: Vitamin D,25 Hydroxy 83.1 ng/mL
[2023-07-29 17:45] LABS: ALB/GLOB Ratio 1.3 RATIO (0.9-2.4); AST(SGOT) 13 U/L (15-37); Alanine Aminotransfer ALT/SGPT 17 U/L (13-56); Alkaline Phosphatase 124 U/L (45-117); Anion Gap 4 (5-15); BUN 16 mg/dL (7-18); BUN/Creat Ratio 21.4 RATIO (10-20); Calcium,Total 9.3 mg/dL (8.5-10.1); Chloride 105 mmol/L (98-107); Cholesterol 198 mg/dL (200); Creatinine, Serum 0.75 mg/dL (0.55-1.02); EST Glomerular Filtration Rate 83 mL/min (>60); Est Glom Filt Rate - Afr Amer 101 mL/min (>60); Glucose 79 mg/dL (74-106); High Density Lipoprotein 60 mg/dL; Potassium 3.8 mmol/L (3.5-5.1); Sodium Level 138 mmol/L (136-145); Thyroid Stim Hormone (TSH) 4.59 uIU/mL (0.358-3.74); Triglycerides 102 mg/dL; Very Low Density Lipoprotein 20 mg/dL (5-40)
== END | disposition home or self-care (01) ==
PROVIDERS: PCP Family Medicine; Visit Provider Family Medicine
DX: C73 Malignant neoplasm of thyroid gland (principal); E78.5 Hyperlipidemia, unspecified; M81.0 Age-related osteoporosis without current pathological fracture
CPT/HCPCS: 36415; 80053; 80061; 82306; 84443

== ENCOUNTER → 2023-08-18 | Outpatient (CLI) | payer MEDICARE, SELFPAY ==
--- NOTE | 2023-08-18 18:37 | CT_ITS ---
STUDY: LOW DOSE CT LUNG CANCER SCREENING REASON FOR EXAM: Female, 63 years old. SMOKER x20 years, half pack per day RADIATION DOSAGE (If Supplied By Facility): CTDIvol = ( 3.02 ) mGy, DLP = ( 90.25 ) mGycm TECHNIQUE: No contrast was administered. Low dose technique was utilized (average mAS-38 and kVp 120). 1.25 mm axial source images with a slice interval of 1.25-mm were reconstructed in lung windows. Coronal sagittal reformats obtained. COMPARISON: May 16, 2021 NODULES: No suspicious pulmonary nodules. Parenchyma: No airspace consolidation, effusion, or pneumothorax. Scattered subsegmental atelectasis within the lung. Endobronchial lesion: No endobronchial lesion. Aorta: Mild aortic atherosclerosis without ectasia CORONARY ARTERIES: Mild scattered calcified coronary atherosclerosis. Heart: No cardiomegaly or pericardial effusion. Pulmonary artery: No main pulmonary arterial enlargement. Mediastinal nodes: No mediastinal or bulky hilar adenopathy. Other chest and abdominal findings: Absent left thyroid. Unremarkable right thyroid. Unremarkable esophagus. Imaged portion of the colon is stool filled. Colon interposed between liver and right hemidiaphragm. Intrathecal neurostimulator noted with thoracic vertebroplasty change. CT/Low Dose CT Lung Screening IMPRESSION: No suspicious pulmonary nodules. Lung-RADS category 1 - Continue annual screening with LDCT in 12 months. IMPORTANT NOTES FOR USE: ACR Lung-RADS Version 1.1 Assessment Categories Release Date: 2018 Category: Coded 0-4 bases on nodule(s) with highest degree of suspicion. Negative screen is defined as categories 1 and 2; a positive screen is defined as categories 3 and 4. Category 3 and 4A nodules that are unchanged on interval CT should be coded as category 2, and individuals returned to screening in 12 months. Category 4X: Category 3 or 4 nodules with additional imaging findings that increase the suspicion of lung cancer, such as spiculation, GGN that doubles in size in 1 year, enlarged lymph notes, etc. Category Modifiers: S (significant finding unrelated to lung cancer) Electronically Signed: Shaun Conde MD at 21:01 EDT ,
== END | disposition home or self-care (01) ==
LOC: CT 18:34
PROVIDERS: PCP Family Medicine; Referring Provider Internal Medicine Pulmonary Disease; Visit Provider Internal Medicine Pulmonary Disease
DX: Z12.2 Encounter for screening for malignant neoplasm of respiratory organs (principal); F17.210 Nicotine dependence, cigarettes, uncomplicated
CPT/HCPCS: 71271

== ENCOUNTER → 2023-09-25 | Outpatient (CLI) | payer MEDICARE, MEDICAID, SELFPAY ==
--- NOTE | 2023-09-25 15:05 | BD_ITS ---
STUDY: DUAL ENERGY X-RAY ABSORPTIOMETRY / DXA REASON FOR EXAM: Female, 63 years old. Osteoporosis TECHNIQUE: Bone Mineral Density (BMD) measurements of the left forearm and bilateral hips were obtained. COMPARISON: Comparison is made with prior study November 02, 2019. FINDINGS: Left Femur Total: g/cm2 (0.598) / T-score (-2.8) / Z-score (-1.7) Left Femoral Neck: g/cm2 (0.460) / T-score (-3.5) / Z-score (-2.1) Right Femur Total: g/cm2 (0.513) / T-score (-3.5) / Z-score (-2.4) Right Femoral Neck: g/cm2 (0.427) / T-score (-3.8) / Z-score (-2.4) Left Forearm: g/cm2 (0.396) / T-score (-3.4) / Z-score (-1.9) The T-Scores on the most recent prior examination were: Left Femur Total: which represents a worsening of 0.6%. Right Femur Total: which represents a worsening of 12.9%. BD/Dexa Bone Density Study IMPRESSION: The patient is considered osteoporotic as outlined below according to World Mani Organization (WHO) criteria with a high fracture risk. There has been worsening of bone density since the previous examination. Reference Information: The T-score is the number of standard deviations above or below the standard which is normal for young adults at their peak bone mineral density. The World Health Organization (WHO) interprets the T-scores as follows: Above -1 Normal bone density Between -1 and -2.5 Osteopenia Equal to / or below -2.5 Osteoporosis As a practical clinical guideline, osteopenia may be graded as follows: Mild -1 through -1.5 Moderate -1.6 through -2.0 Severe -2.1 through -2.4 The Z-score is the number of standard deviations above or below age-matched controls. A Z-score of less than -1.5 would be considered abnormal. References: 1. NIH Osteoporosis and Related Bone Diseases www osteo.org 2. International Society for Clinical Densitometry www iscd.org 3. National Osteoporosis Foundation www nof.org Electronically Signed: Coleman uStton MD at 11:16 EDT ,
== END | disposition home or self-care (01) ==
LOC: OPBD 15:04
PROVIDERS: PCP Family Medicine; Referring Provider Family Medicine; Visit Provider Family Medicine
DX: M81.0 Age-related osteoporosis without current pathological fracture (principal)
CPT/HCPCS: 77080

== ENCOUNTER → 2023-10-29 | Outpatient (CLI) | payer MEDICARE, MEDICAID, SELFPAY ==
[2023-10-29 17:43] LABS: Erythrocyte Sedimentation Rate 2 mm/hr (0-30)
[2023-10-31 14:10] LABS: Anti-Centromere B Ab <0.2 AI (0.0-0.9); Anti-Chromatin <0.2 AI (0.0-0.9); Anti-Jo <0.2 AI (0.0-0.9); Anti-Scleroderma-70 AB <0.2 AI (0.0-0.9); Anti-dsDNA Ab 1 IU/mL (0-9); RNP Ab <0.2 AI (0.0-0.9); SJOGREN'S Anti-SS-A test < 0.2 AI (0.0-0.9); SJOGREN'S Anti-SS-B test < 0.2 AI (0.0-0.9); Smith Ab <0.2 AI (0.0-0.9)
== END | disposition home or self-care (01) ==
PROVIDERS: PCP Family Medicine; Referring Provider Family Medicine; Visit Provider Family Medicine
DX: C73 Malignant neoplasm of thyroid gland (principal)
CPT/HCPCS: 36415; 85652; 86225; 86235

== ENCOUNTER → 2024-02-02 | Outpatient (CLI) | payer MEDICARE, MEDICAID, SELFPAY ==
--- NOTE | 2024-02-02 13:41 | STE_ITS ---
Reason For Study: Chest Pain Stress Results Protocol: Dobutamine Stress Echo Maximum Predicted HR: 157 bpm Target HR: 133 bpm % Maximum Predicted HR: 83 % DurationHeart Rate Stage (mm:ss) (bpm) BP Comment Baseline 92 123/80No Chest Pain DSE 10 MCG 3:39 113 94/52No Chest Pain DSE 20 MCG 3:00 120 84/48No Chest Pain DSE 30 MCG 4:31 130 77/48No Chest Pain Recovery 98 104/59No Chest Pain Stress Duration: 11:10 mm:ss Maximum Stress HR: 130 bpm METS: 1 Baseline Echocardiogram Findings Stress Echo Wall motion Data Resting WM Intermediate WM Stress WM ECHO/Stress Test Echo w/o Contrast Interpretation Summary Dobutamine stress echocardiogram. Resting EKG demonstrates normal sinus rhythm with a rate of 90 bpm resting bloo d pressure is 123/80 mmHg. Dobutamine was infused starting at 10 mcg/kg/min increasing in 10 mg aliq uots to a peak of 30mcg/kg/min. Continuous EKG monitoring was performed. The patient maintained s inus rhythm throughout the recording. The peak heart rate was 130 bpm which was 82% of max impacted heart rate the maximum workload was 1 metabolic equivalent. The blood pressure which start ed at 123/80 mmHg continued to fall with dobutamine infusion to a archana of 77/48 mmHg at which po int the test was terminated. The recovery postinfusion blood pressure was 104/59 mmHg with no sy mptoms. There were no EKG changes to suggest ischemia and no arrhythmias noted. Stress echocardiogram. The resting echocardiographic images demonstrated preser [place] left ventricular systolic function estimated at 60% at a low dose there was enhanced contractili ty with reduction of low ventricular cavity size and at peak dose the ejection fraction was noted to be approximately 70%. No obvious chamber obliteration was noted and there were no wall motion ab normalities to suggest ischemia. Conclusion: Dobutamine stress echocardiogram with no EKG or echocardiographic evidence of i schemia. Ordering Physician: Pierre Jones Referring Physician: Pierre Jones Performed By: Leslie Amezquita, [facility]
== END | disposition home or self-care (01) ==
PROVIDERS: PCP Family Medicine; Referring Provider Internal Medicine Cardiovascular Disease; Visit Provider Internal Medicine Cardiovascular Disease
DX: R94.31 Abnormal electrocardiogram [ECG] [EKG] (principal)
CPT/HCPCS: 93017; 93350; J7040; A4216

== ENCOUNTER → 2024-06-08 | Outpatient (CLI) | payer MEDICARE, MEDICAID, SELFPAY ==
[2024-06-08 16:45] LABS: Absolute Lymphocyte Count 1.78 X10^3/uL (0.83-4.51); Absolute Neutrophil Count 2.7 X10^3/uL (2.0-7.7); Basophil# 0.05 X10^3/uL; Basophil% 0.9 % (0-1); Eosinophil# 0.16 X10^3/uL; Hematocrit 40.8 % (37-47); Hemoglobin 13.6 g/dL (12.0-15.0); Lymphocyte # 1.78 X10^3/ul (0.83-4.51); Lymphocyte % 33.6 % (19-41); Mean Corp Hgb Conc 33.3 g/dL (32-36); Mean Corpuscular Hgb 28.5 pg (27.0-32.0); Mean Corpuscular Volume 85.4 fL (81-99); Mean Platelet Vol. 9.2 fl (6.2-12.0); Monocyte# 0.63 X10^3/uL; Monocyte% 11.9 % (0-10); NRBC Flagged by Analyzer 0 % (0-5); Neutrophil # 2.67 X10^3/uL (2.7-7.7); Neutrophil % 50.4 % (47-70); Platelet Count 264 K/mm3 (150-450); RBC Distribution Width CV 12.7 % (11.6-14.6); RBC Distribution Width SD 39.5 fl (35.1-43.9); Red Blood Count 4.78 M/mm3 (4.2-5.4); White Blood Count 5.3 K/mm3 (4.4-11.0)
[2024-06-09 00:09] LABS: AST(SGOT) 17 U/L (<=31); Alanine Aminotransfer ALT/SGPT 13 U/L (<=34); Albumin, Serum 4.5 g/dL (3.4-4.8); Alkaline Phosphatase 118 U/L (35-104); Anion Gap 13 (5-15); BUN 12 mg/dL (4-19); BUN/Creat Ratio 14.4 RATIO (10-20); Calcium,Total 9.3 mg/dL (7.6-11.0); Carbon Dioxide 22.4 mmol/L (21.0-32.0); Chloride 101 mmol/L (98-108); EST Glomerular Filtration Rate 82 (>60); Globulin 2.2 g/dL (2.2-4.2); Glucose 86 mg/dL (70-99); Potassium 4.1 mmol/L (3.3-5.1); Protein, Total 6.7 g/dL (5.9-8.4); Sodium Level 136 mmol/L (133-145); Total Bilirubin 0.34 mg/dL (0.00-1.30)
== END | disposition home or self-care (01) ==
LOC: BIMLAB 16:06
PROVIDERS: PCP Family Medicine; Referring Provider Family Medicine; Visit Provider Family Medicine
DX: R53.83 Other fatigue (principal); E03.9 Hypothyroidism, unspecified
CPT/HCPCS: 36415; 80053; 84439; 84443; 85025

== ENCOUNTER → 2024-06-28 | Outpatient (CLI) | payer MEDICARE, MEDICAID, SELFPAY ==
--- NOTE | 2024-06-28 12:34 | US_ITS ---
EXAM: Ultrasound of the left palm. CLINICAL HISTORY: Palpable lump. COMPARISON: None TECHNIQUE: Imaging of the palpable region was performed with ultrasound. FINDINGS: The palpable abnormality corresponds to a 4 mm x 6 mm x 2 mm cyst. US/Other Unlisted US Procedure IMPRESSION: The palpable lump corresponds to a 4 mm x 6 mm x 2 mm cyst. Reading Location: [place] [id number]
== END | disposition home or self-care (01) ==
LOC: US 11:15
PROVIDERS: PCP Family Medicine; Referring Provider Orthopaedic Surgery Sports Medicine; Visit Provider Orthopaedic Surgery Sports Medicine
DX: R22.32 Localized swelling, mass and lump, left upper limb (principal)
CPT/HCPCS: 76999

== ENCOUNTER → 2024-08-23 | Outpatient (CLI) | payer MEDICARE, MEDICAID, SELFPAY ==
--- NOTE | 2024-08-23 17:06 | CT_ITS ---
PROCEDURE: LOW DOSE CT LUNG SCREENING 08/23/2024 REASON FOR EXAM: SMOKER TECHNIQUE: Low Dose CT Lung screening without contrast. Coronal and Sagittal reconstruction series were provided. One or more dose reduction techniques were used (e.g., Automated exposure control, adjustment of the mA and/or kV according to patient size, use of iterative reconstruction technique). REFERENCE LINK: Ayi Laile Lung-RADS RADIATION DOSE SUMMARY: CTDlvol: 3.02 mGy DLP: 83 mGycm COMPARISON: 08/18/2023. FINDINGS: PULMONARY NODULES: (Only nodules >3mm are reported) Nodules described below are on series 2 unless otherwise specified. Mild bilateral basilar atelectatic pulmonary changes. Mild cardiomegaly. Sliding hiatal hernia. Mild coronary artery calcifications. Prior osteopenia. Multilevel vertebroplasty. Diffuse spondylosis. Normal unenhanced main pulmonary artery and right and left pulmonary arteries. Normal bilateral peripheral pulmonary arteries. Normal thoracic aorta and visualized great vessels. There is no demonstrated aortic aneurysm. Normal heart and pericardium. Normal mediastinum. Normal hilar regions. Normal visualized trachea and bronchi. Normal pleura. Normal visualized upper abdomen. Unremarkable spinal stimulator device. CT/Low Dose CT Lung Screening IMPRESSION: Bilateral basilar atelectatic pulmonary changes. Coronary artery calcification (CAC) is is present Lung-RADS Category: 1 NEGATIVE. RECOMMEND 12-MONTH SCREENING LDCT. Reading [facility] [address]
== END | disposition home or self-care (01) ==
PROVIDERS: PCP Family Medicine; Referring Provider Internal Medicine Pulmonary Disease; Visit Provider Internal Medicine Pulmonary Disease
DX: Z87.891 Personal history of nicotine dependence (principal)
CPT/HCPCS: 71271

== ENCOUNTER 2024-08-27 05:17 | Day surgery (SDC) | payer MEDICARE, MEDICAID, SELFPAY ==
--- NOTE | 2024-08-25 15:30 | PAT.ANE_ITS ---
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 When Was Last Pacemaker Check QUESTION #4 FULL TEXT: You/Your Family Experience fever (hyperthermia) with Anesthesia Last Oral Intake Last Oral intake: Last Oral Intake NPO since Meds taken in AM with sips of water? 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 Has anyone observed you stop breathing during sleep? STOP Results Positive 08/25/24 15:00 QUESTION #5 FULL TEXT : Do you snore loudly (louder than talking or can be heard through closed doors)? 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 Specify any problems Hx of Preganancy in last 3 No 08/25/24 15:00 Months Nurse Filling Out Transfusion [facility] 08/25/24 15:00 & Questions: Date: 08/25/24 08/25/24 15:00 Time: 15:08/25/24 15:00 Patient unable to answer at this time (ie. 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 tumbler operator: /Reproductive Hx- drying tumbler operator Hx Now No 08/25/24 15:00 Gestational Age (in weeks): EDC: Hx Hx Para Hx Section SAB No 08/25/24 15:00 [facility] Medical History (Updated 08/25/24 @ 15:10 by Susy Jernigan) Wears dentures Wears glasses Cancer Anxiety Arthritis Ambulates with cane High cholesterol Easy bruising Injury of back History of IBS Gastric reflux Former smoker CPAP (continuous positive airway pressure) dependence Sleep apnea Hoarseness Shortness of breath on exertion Chronic cough Leg cramps History of echocardiogram History of stress test Cardiology follow-up encounter Ganglion, left wrist Abnormal EKG Arrhythmia Basal cell carcinoma Irritable bowel syndrome with constipation Fibroids Skin cancer Anemia Hypothyroidism Rheumatoid arthritis Osteoporosis GERD (gastroesophageal reflux disease) CPAP (continuous positive airway pressure) dependence COPD (chronic obstructive pulmonary disease) Migraines Hyperlipidemia Adult BMI 30.0-30.9 kg/sq m Obstructive sleep apnea Back pain Thyroid disease Shoulder pain Compression fracture of L5 lumbar vertebra Thyroid cancer Anxiety and depression Osteoarthritis Vitamin D deficiency Home Medications ?Medication ?Instructions ?Recorded ?Last Taken ?Type albuterol sulfate 90 mcg/actuation 2 puff inhalation P RN PRN Sob &/Or 09/07/18 01/03/20 History aerosol inhaler Wheezing magnesium 200 mg tablet 200 mg PO DAILY 07/29/23 Unk nown History mecobalamin (vitamin B12) 1,000 1,000 mcg PO DAILY Unknown History mcg lozenges vitamin D3 125 mcg (5,000 1 cap PO DAILY 07/29/23 Unkn own History unit)-vitamin K2 180 mcg capsule (K2-D3 Max) Handicap placard #1 ea 10/29/23 Unknown Rx fluticasone furoate 200 1 inh inhalation DAILY copd #60 ea 04/13/24 Unknown Rx mcg-vilanterol 25 mcg/dose inhalation powder (Breo Ellipta) rosuvastatin 5 mg tablet 5 mg PO DAILY cholesterol #9 0 tabs 04/13/24 Unknown Rx tiotropium bromide 2.5 2 puff inhalation QDAY #4 gr ams 04/13/24 Unknown Rx mcg/actuation mist for inhalation (Spiriva Respimat) amitriptyline 50 mg tablet 50 mg PO QHS #90 tabs 04/20 Unknown Rx paroxetine HCl 40 mg tablet 40 mg PO QAM #90 tabs 02/0 07/09 Unknown Rx levothyroxine 25 mcg tablet 25 mcg PO QDAY #90 tabs Unknown Rx pantoprazole 40 mg tablet,delayed 40 mg PO DAILY #90 t abs 06/17/24 Unknown Rx release peg 3350-electrolytes 236 240 ml PO Q10M #4,000 mL 06/08 Unknown Rx gram-22.74 gram-6.74 gram-5.86 gram solution (Golytely) denosumab 60 mg/mL subcutaneous 60 mg subcut Q6M 08/25 Unknown History syringe (Prolia) Allergy/AdvReac Type Severity Reaction Status Date / Time nickel Allergy Intermediate Rash Verified 08/25/24 14:56 Family History Mother Heart disease Surgical History (Updated 06/22/24 @ 10:28 by Samra Powers) History of kyphoplasty History of tonsillectomy History of thyroidectomy H/O: hysterectomy Social History (Reviewed 06/22/24 @ 10:27 by Samra Rubin adopted: No household members: family number of children: 3 current occupational status: disabled pets and animals: Yes sexually active: No Smoking Status: Former smoker quit date: 03/17/14 pack-years: 22 Tobacco: How many years used: 22 alcohol intake: never substance use type: does not use caffeine: Yes (2-3) Type: coffee Number of servings: 3 frequency: does not exercise do you feel safe at home: Yes Audit: Pertinent Findings Pertinent Findings EKG Perinent findings: 01/21/2024. Sinus rhythm with frequent PACs anterior septal infarct, age undetermined. Nonspecific ST depression. Nondiagnostic. Stress test pertinent findings: - 02/02/2024. Negative. Echo (EF%) pertinent findings: 09/13/2020. EF 55%. Consult pertinent findings: Cardiology 01/21/2024. Abnormal EKG. Frequent PVCs. Recommendation to obtain 24-hour Holter. Stress test. Did not mitten palpitations. Acute. With some shortness of breath. Recommendation Anesthesia Recommendation Anesthesia recommendation: OPTIMIZED for anesthesia
[2024-08-27] VITALS (9 sets, daily range): BP systolic 83–118; BP diastolic 57–72; PULSE 82–84; RESP 16; TEMP 36.6–36.9; O2SAT 93–99; BMI 30.2
--- OUTSIDE RECORDS SUMMARY | 2024-08-27 05:21 | XMS RPT_ITS | CCD ---
Author Organization [facility] Inform ion Partnership GROUP CHIEF OPERATOR [facility] Care Team Providers Care Settlement Agent Name Role Phone Jessica May Unavailable Nilay Hankins Unavailable Suresh Nguyen Unavailable Debra Carmichael Unavailable Unavailable Unavailable Unavailable Jessica May Unavailable Nilay Hankins Unavailable [phone] Suresh Nguyen Unavailable Debra Carmichael Unavailable Unavailable Eduin Brown Unavailable Unavailable Unavailable Unavailable Selena Dillon Unavailable Unavailable Safia Hoffman Unavailable Unavailable Slarb, Kalie Unavailable Unavailable Manchajoseph, Nahomy Unavailable Unavailable Tae Elizondo Unavailable Rona Aviles Unavailable Eyad Smith Unavailable Eduin Brown Unavailable Unavailable Unavailable Unavailable Eduin Campoverde Unavailable Unavailable Tae Elizondo Unavailable Jessica May CNP Unavailable Nilay Hankins MD Unavailable Rona Aviles Unavailable Dr. Suresh Nguyen Unavailable [phone] Eyad Smith Unavailable Tae Elizondo MD Unavailable Eduin Campoverde LPN Unavailable Unavailable Safia Hoffman Unavailable Unavailable Debra Carmichael Unavailable Unavailable Unavailable Unavailable Radha Thompson LPN Unavailable Unavailable Unavailable Unavailable Larissa Feliz Unavailable [facility] Unavailable Jorge L ANJANARadha Unavailable Unavailable Jessica May Unavailable Ciesa CLINIC MANAGER, CLINIC MANAGER-C [facility] Primary Care Provider Dr. Gregorio Redd Emergency Provider Dr. Sumit Chacon Attending Provider Jessica May Unavailable Simon SPANISH LECTURER, Janice Unavailable Simon SPANISH LECTURER, Janice Unavailable [phone] Slarb TREE PULLERKalie Unavailable Unavailable Jessica May Unavailable Unavailable Unavailable Simon SPANISH LECTURER, Janice Attending Unavailable Simon SPANISH LECTURER, Janice Referring Unavailable Simon SPANISH LECTURER, Janice Consulting Unavailable Dr. Vu Ramon DO Primary Care Provider [phone] Dr. Vu Ramon DO Attending Provider [phone] Dr. Vu Ramon DO Referring Provider [phone] Mahin ALVARENGA-CBelinda Attending Provider Cale Cruz MD Attending Provider [phone] Cale Cruz MD Referring Provider [phone] Luis Eyad Feliz Referring Unavailable Sibilia Eyad Feliz Attending Unavailable Brown, Vu R Primary Care Unavailable Brown, Vu R Primary Care Unavailable Karen, [place] Attending Unavailable Karen, [place] Referring Unavailable Friend, Rodriguez Attending Unavailable Brown, Vu R Primary Care Unavailable Brown, Vu R Primary Care Unavailable Brown, Vu R Referring Unavailable NURSE, BIM Attending Unavailable Brown, Vu R Primary Care Unavailable Brown, Vu R Referring Unavailable Karen, [place] Attending Unavailable Brown, Vu R Primary Care Unavailable Brown, Vu R Referring Unavailable Yoanna Kline Attending Unavailable Brown, Vu R Primary Care Unavailable Brown, Vu R Referring Unavailable Brown, Vu R Attending Unavailable Brown, Vu R Attending Unavailable Brown, Vu R Referring Unavailable Brown, Vu R Primary Care Unavailable Belinda Stockton Attending Unavailable Brown, Vu R Primary Care Unavailable Brown, Vu R Referring Unavailable Cale Cruz Attending Unavailable Brown, Vu R Primary Care Unavailable Brown, Vu R Referring Unavailable Brown, Vu R Primary Care Unavailable Karen, Pierre Attending Unavailable Brown, Vu R Primary Care Unavailable Antony CLINIC MANAGER, Alyx Attending Unavailable Brown, Vu R Attending Unavailable Brown, Vu R Primary Care Unavailable Cale Cruz Referring Unavailable Cale Cruz Attending Unavailable Brown, Vu R Primary Care Unavailable Brown, Vu R Primary Care Unavailable Brown, Vu R Referring Unavailable Brown, Vu R Attending Unavailable Brown, Vu R Primary Care Unavailable Karen, Pierre Referring Unavailable Karen, [place] Attending Unavailable Brown, Vu R Attending Unavailable Brown, Vu R Primary Care Unavailable Brown, Vu R Referring Unavailable Brown, Vu R Attending Unavailable Brown, Vu R Primary Care Unavailable Brown, Vu R Referring Unavailable Medications Current Medications Medication Drug Class(es) Dates Sig (Normalized) Sig (Original) acetaminophen 325 mg / oxyCODONE hydrochloride 5 mg oral tablet (20 sources) Opioid Agonist Start: 08-09-2021 take 1 tablet by mouth every six hours Oxycodone-Acetami nophen (Percocet) 5-325 mg tablet Active 1 TABLET PO EVERY 6 HOURS 7 2 August 09, 2021 6:23pm Start: 05-01-2019 End: 05-04-2019 Oxycodone-Acetaminophen 1 TA BLET tablet Discontinued 1 {tbl} PO EVERY 6 HOURS NEEDED as needed for Pain 12 3 May 01, 2019 May 03, 2019 1:00am May 04, 2019 1:08am Start: 05-01-2019 End: 05-04-2019 take 1 tablet by mouth every six hours as needed Oxycodone-Acetaminophen Discontinued 1 TABLET PO EVERY 6 HOURS NEEDED 12 3 May 01, 2019 May 04, 2019 1:08am Percocet 5-325 M G Oral Tablet PRN (5-325 MG) Inactive [place] Oil oil (1 source) Start: 06-17-2024 take 1 mL by mouth once [place] Oil oil Active 15 mL PO ONCE June 17, 2024 12:00am 1 ml denosumab 60 mg/ml prefilled syringe (20 sources) RANK Ligand Inhibitor Start: 03-22-2024 Denosumab (Prolia) 60 mg/mL syringe Active 60 mg SC ONCE March 22, 2024 10:54am Start: 08-30-2020 Denosumab Acti ve 60 MG SC every 6 months August 30, 2020 12:00am Start: 06-28-2020 End: 03-22-2024 Denosumab (Prolia) 60 mg/mL syringe Discontinued 60 mg SC every 6 months 1 August 20, 2023 1:12pm March 22, 2024 10:54am Start: 01-17-2020 Prolia 60 MG/M L Subcutaneous Solution Prefilled Syringe 1 (one) Milliliter q6mo for 0 days Quantity: 1 {Milliliter} Refills: 3 Ordered: 17-Jan-2020 Jessica May CNP, CNP, Mary E Start : 17-Jan-2020 Active Fluticasone Furoate-Vilanterol (20 sources) Corticosteroid, beta2-Adrenergic Agonist Start: 04-13-2024 Fluticasone Furoate-Vilanterol (Breo Ellipta) 200-25 mcg/dose blister with device Active 1 NMA INHALATION DAILY April 13, 2024 11:52am Start: 08-22-2020 Fluticasone Fu roate-Vilanterol (Breo Ellipta) 200-25 mcg/dose blister with device Active 1 INH INHALATION DAILY August 22, 2020 5:26pm Start: 08-22-2020 End: 04-13-2024 Fluticasone Furoate-Vilanter ol (Breo Ellipta) 200-25 mcg/dose blister with device Discontinued 1 NMA INHALATION DAILY August 22, 2020 12:00am April 13, 2024 11:52am Start: 08-22-2020 Fluticasone Fu roate-Vilanterol (Breo Ellipta) 200-25 mcg/dose blister with device Active 1 INH INHALATION DAILY August 22, 2020 12:00am Start: 12-31-2019 End: 08-22-2020 take 1 puff(s) by inhalation once daily Fluticasone Furoate-Vilanterol Discontinued 1 PUFF IH DAILY December 31, 2019 12:57pm August 22, 2020 5:26pm Start: 12-31-2019 End: 08-22-2020 take 1 dose by inhalation once daily Fluticasone Furoate-Vilanterol 1 EACH blister with device Discontinued 1 NMA IH DAILY December 31, 2019 12:00am August 22, 2020 5:26pm Start: 12-31-2019 End: 08-22-2020 take 1 puff(s) by inhalation once daily Fluticasone Furoate-Vilanterol Discontinued 1 PUFF IH DAILY December 31, 2019 12:00am August 22, 2020 5:26pm take 1 puff(s) by in halation once daily Breo Ellipta 200-25 MCG/INH Inhalation Aerosol Powder Breath Activated 1 puff once a day (200-25 MCG/INH) Active Handicap placard (2 sources) Start: 10-29-2023 Handicap placard Active 0 .Route .MEDSUPPLY October 29, 2023 12:00am Duration 5 years, Diagnosis, multiple spinal fractures Magnesium (2 sources) Start: 07-29-2023 take 1 tablet by mouth once daily Magnesium 200 mg tablet Active 200 mg PO DAILY July 29, 2023 12:00am Mecobalamin (Vitamin B12) 1,000 mcg lozenge (2 sources) Start: 07-29-2023 take 1000 ug by mouth once daily Mecobalamin (Vitamin B12) 1,000 mcg lozenge Active 1000 ug PO DAILY July 29, 2023 12:00am allow to dissolve in mouth OR may chew lightly before swallowing pantoprazole 40 mg delayed release oral tablet (1 source) Proton Pump Inhibitor Start: 06-17-2024 take 1 tablet by mouth once daily Pantoprazole 40 mg tablet,delayed release (DR/EC) Active 40 mg PO DAILY June 17, 2024 12:00am polyethylene glycol 3350 535276 mg / potassium chloride 2970 mg / sodium bicarbonate 6740 mg / sodium chloride 5860 mg / sodium sulfate 08482 mg powder for oral solution (1 source) Osmotic Laxative Start: 06-17-2024 Peg 3350-Electrolytes (Golytely) 236-22.74-6.74 -5.86 gram recon soln Active 240 mL PO Q10M 3999June 17, 2024 12:00am until fecal effluent is clear Tiotropium Roy (4 sources) Anticholinergic Start: 04-13-2024 take 2.5 ug by inhalation once daily Tiotropium Roy (Spiriva Respimat) 2.5 mcg/actuation mist Active 2 NMA INHALATION daily April 13, 2024 11:52am Start: 07-29-2023 End: 04-13-2024 take 2.5 ug by inhalation once daily Tiotropium Roy (Spiriva Respimat) 2.5 mcg/actuation mist Discontinued 2 NMA INHALATION daily July 29, 2023 12:00am April 13, 2024 11:52am Vitamin D3-Vitamin K2 (K2-D3 Max) 125 mcg (5,000 unit)-180 mcg capsule (2 sources) Start: 07-29-2023 Vitamin D3-Vit dennis K2 (K2-D3 Max) 125 mcg (5,000 unit)-180 mcg capsule Active NMA PO July 29, 2023 12:00am Completed/Discontinued Medications Medication Drug Class(es) Dates Sig (Normalized) Sig (Original) acetaminophen 325 mg / HYDROcodone bitartrate 5 mg oral tablet (20 sources) Opioid Agonist Start: 08-22-2020 End: 08-30-2020 Hydrocodone-Acetami nophen 5-325 mg tablet Discontinued 1 {tbl} PO TWICE A DAY as needed August 22, 2020 12:00am August 30, 2020 10:10am Start: 08-22-2020 End: 08-30-2020 take 1 tablet by mouth twice daily Hydrocodone-Acetaminophen Discontinued 1 TABLET PO TWICE A DAY August 22, 2020 12:00am August 30, 2020 10:10am Start: 07-22-2017 End: 02-23-2018 Hydrocodone-Acetaminophen 1 EACH tablet Discontinued 1 NMA PO TWICE A DAY as needed for Pain July 22, 2017 12:00am February 23, 2018 11:45am Start: 07-22-2017 End: 02-23-2018 Hydrocodone-Acetaminophen Di scontinued 1 EACH PO TWICE A DAY July 22, 2017 12:00am February 23, 2018 11:45am [place] 5-325 MG O ral Tablet prn (5-325 MG) Inactive Comments: Rx by [facility] Comment on above: Medication taken as needed. dr. lovelace Rx by [facility] [id number] 200 actuat albuterol 0.09 mg/actuat metered dose inhaler (20 sources) beta2-Adrenergic Agonist Start: 05-05-2019 ProAir HFA 108 (90 Base) MCG/ACT Inhalation Aerosol Solution 2 (two) Puff tid or qid for 0 days Quantity: 1 {Inhaler} Refills: 3 Ordered: 05-May-2019 Jessica May Start : 05-May-2019 Active Start: 05-05-2019 ProAir HFA 108 (90 Base) MCG/ACT Inhalation Aerosol Solution 2 (two) Puff tid or qid for 0 days Quantity: 1 {Inhaler} Refills: 3 Ordered: 05-May-2019 Yadira SOUZA AndieAlonzo May CNP Jessica Rosado Start : 05-May-2019 Active Start: 10-20-2018 take 2 puff(s) by in halation three times daily ProAir HFA 108 (90 Base) MCG/ACT Inhalation Aerosol Solution 2 (two) Puff tid for 0 days Quantity: 1 {Inhaler} Refills: 0 Ordered: 20-Oct-2018 Yadira SOUZA AndieAlonzo May CNP Jessica Rosado Start : 20-Oct-2018 Active Start: 09-07-2018 Albuterol Sulf ate 8.5 GM HFA aerosol inhaler Active 2 NMA INHALATION NEEDED as needed for Sob &/Or Wheezing September 07, 2018 12:00am Start: 09-07-2018 Albuterol Sulf ate Active 2 PUFF INHALATION NEEDED September 07, 2018 12:00am Start: 07-13-2018 take 2 puff(s) by in halation three times daily ProAir HFA 108 (90 Base) MCG/ACT Inhalation Aerosol Solution 2 (two) Puff tid for 0 days Quantity: 1 {Inhaler} Refills: 0 Ordered: 13-Jul-2018 Yadira SOUZA AndieAlonzo May CNP Jessica Rosado Start : 13-Jul-2018 Active Start: 06-09-2018 take 2 puff(s) by in halation three times daily ProAir HFA 108 (90 Base) MCG/ACT Inhalation Aerosol Solution 2 (two) Puff tid for 0 days Quantity: 1 {Inhaler} Refills: 0 Ordered: 09-Jun-2018 Yadira SOUZA AndieAlonzo May CNP Jessica Rosado Start : 09-Jun-2018 Active amitriptyline hydrochloride 50 mg oral tablet (20 sources) Tricyclic Antidepressant Start: 07-29-2023 End: 04-20-2024 take 1 tablet by mouth at bedtime Amitriptyline 50 mg tablet Discontinued 50 mg PO AT BEDTIME 90 December 16, 2023 8:11am April 20, 2024 9:22am Start: 09-14-2018 take 1 tablet by ching th once daily at bedtime Amitriptyline HCl 25 MG Oral Tablet 1 (one) Tablet qhs for 0 days Quantity: 30 {Tablet} Refills: 0 Ordered: 14-Sep-2018 Augiecarolee SOUZA, Andie Augiecarolee SOUZA, Jessica Rosado Start : 14-Sep-2018 Active Comments: per Dr. Elizondo Start: 09-09-2018 End: 11-24-2023 take 2 tablets by mouth once daily at bedtime Amitriptyline HCl 25 MG Oral Tablet 2 (two) Tablet qhs for 30 days Quantity: 60 {Tablet} Refills: 3 Ordered: 12-Jul-2021 Tamara Banks MD Start : 12-Jul-2021 Active Comments: per Dr. Elizondo Start: 09-09-2018 take 50 mg by mouth at bedtime Amitriptyline Active 50 MG PO AT BEDTIME 60 September 09, 2018 12:00am Comment on above: per Dr. Elizondo Blood Pressure Kit (3 sources) Start: 2 Blood Pressure Kit 1 (one) Kit as needed for 0 days Quantity: 1 Kit Refills: 0 Ordered: 01-Oct-2021 Janice Montes CNP Start : 01-Oct-2021 Active Comments: Medication taken as needed. bp machine - (cuff, machine), automatic Comment on above: Medication taken as needed. bp machine - (cuff, machine), automatic 60 actuat budesonide 0.08 mg/actuat / formoterol fumarate 0.0045 mg/actuat metered dose inhaler (20 sources) Corticosteroid, beta2-Adrenergic Agonist Start: 0 End: 0 take 2 puff(s) by inhalation twice daily Symbicort 80-4.5 MCG/ACT Inhalation Aerosol 2 (two) Puff bid for 0 days Quantity: 1 {Inhaler} Refills: 3 Ordered: 29-Sep-2019 Eduin Campoverde LPN Start : 05-May-2019 End : 29-Sep-2019 Inactive Start: 11-09-2018 take 1 puff(s) by in halation twice daily as needed Symbicort 80-4.5 MCG/ACT Inhalation Aerosol 1 (one) Puff bid prn for 0 days Quantity: 1 {Inhaler} Refills: 0 Ordered: 09-Nov-2018 Eduin Brown Start : 09-Nov-2018 Active Start: 10-12-2018 take 1 puff(s) by in halation twice daily as needed Symbicort 80-4.5 MCG/ACT Inhalation Aerosol 1 (one) Puff bid prn for 0 days Quantity: 1 {Inhaler} Refills: 0 Ordered: 12-Oct-2018 Kalie Cortez LPN Start : 12-Oct-2018 Active Start: 09-16-2018 take 1 puff(s) by in halation twice daily as needed Symbicort 80-4.5 MCG/ACT Inhalation Aerosol 1 (one) Puff bid prn for 0 days Quantity: 1 {Inhaler} Refills: 0 Ordered: 16-Sep-2018 Jessica May CNP, CNP, Mary E Start : 16-Sep-2018 Active Start: 09-14-2018 take 1 puff(s) by in halation twice daily as needed Symbicort 80-4.5 MCG/ACT Inhalation Aerosol 1 (one) Puff bid prn for 0 days Quantity: 1 {Inhaler} Refills: 0 Ordered: 14-Sep-2018 Jessica May CNP, CNP, Mary E Start : 14-Sep-2018 Active cholecalciferol 1.25 mg oral capsule (20 sources) Vitamin D Start: 09-29-2019 End: 01-17-2020 take 1 capsule by mouth every other week D3-50 1.25 MG (63053 UT) Oral Capsule 1 (one) Capsule every other week for 30 days Quantity: 4 {Capsule} Refills: 6 Ordered: 17-Jan-2020 Eduin Campoverde LPN Start : 29-Sep-2019 End : 17-Jan-2020 Inactive Start: 07-30-2019 take 1 capsule by mo [facility] every week D3-50 1.25 MG (01217 UT) Oral Capsule 1 (one) Capsule once a week for 30 days Quantity: 4 {Capsule} Refills: 6 Ordered: 30-Jul-2019 Jessica May CNP, CNP Andie Start : 30-Jul-2019 Active Start: 10-12-2018 End: 05-05-2019 take 1 capsule by mouth every week Vitamin D3 1.25 MG (58283 UT) Oral Capsule 1 (one) Capsule once weekly for 0 days Quantity: 12 {Capsule} Refills: 3 Ordered: 05-May-2019 Eduin Campovedre LPN Start : 20-Oct-2018 End : 05-May-2019 Inactive Start: 04-07-2018 take 1 capsule by mo [facility] every week D3-50 82405 UNIT Oral Capsule 1 (one) Capsule once a week for 30 days Quantity: 4 {Capsule} Refills: 6 Ordered: 07-Apr-2018 Jessica May CNP, CNP, Mary E Start : 07-Apr-2018 Active Start: 01-14-2016 End: 02-23-2018 take 1 capsule by mouth every week Cholecalciferol (Vitamin D3) 50,000 UNIT capsule Discontinued 44230 U PO EVERY WEEK January 14, 2016 12:00am February 23, 2018 11:45am [facility] B12 Gumm[facility] 500 MCG Oral Tablet Chewable (13 sources) take 1 ug by mouth four times daily [facility] B12 Gumm[facility] 500 MCG Oral Tablet Chewable 4 times a day (500 MCG) Active Daily Multivitamin (1 source) Start: 09-01-2017 End: 10-01-2017 take 1 capsule by mouth once daily Daily Multivitamin Oral Capsule 1 (one) Capsule daily for 30 days Refills: 0 Ordered: 01-Oct-2017 Jessica May CNP, CNP Andie Start : 01-Sep-2017 End : 01-Oct-2017 Inactive Daily Multivitamin Oral Capsule (20 sources) Start: 09-01-2017 End: 10-01-2017 take 1 capsule by mouth once daily Daily Multivitamin Oral Capsule 1 (one) Capsule daily for 30 days Refills: 0 Ordered: 01-Oct-2017 Jessica May Start : 01-Sep-2017 End : 01-Oct-2017 Inactive Start: 09-01-2017 End: 10-01-2017 take 1 capsule by mouth once daily Daily Multivitamin Oral Capsule 1 (one) Capsule daily for 30 days Refills: 0 Ordered: 01-Oct-2017 Jessica May Mary Start : 01-Sep-2017 End : 01-Oct-2017 Inactive Start: 09-01-2017 End: 10-01-2017 take 1 capsule by mouth once daily Daily Multivitamin Oral Capsule 1 (one) Capsule daily for 30 days Refills: 0 Ordered: 01-Oct-2017 Jessica May CNP, CNP, Jessica Rosado Start : 01-Sep-2017 End : 01-Oct-2017 Inactive gabapentin 400 mg oral capsule (20 sources) Anti-epileptic Agent Start: 10-20-2018 End: 11-27-2018 take 1 capsule by mouth three times daily Gabapentin 400 MG Oral Capsule 1 (one) Capsule tid for 0 days Quantity: 90 {Capsule} Refills: 0 Ordered: 27-Nov-2018 Eduin Campoverde LPN Start : 20-Oct-2018 End : 27-Nov-2018 Inactive Start: 09-01-2017 End: 10-01-2017 take 1 capsule by mouth three times daily Gabapentin 100 MG Oral Capsule 1 (one) Capsule three times daily for 30 days Refills: 0 Ordered: 01-Oct-2017 Jessica May CNP, CNP, Jessica Rosado Start : 01-Sep-2017 End : 01-Oct-2017 Inactive Comments: dr. lovelace Comment on above: dr. lovelace 12 hr guaiFENesin 600 mg extended release oral tablet (20 sources) Start: 0 End: 0 take 1 tablet by mouth twice daily Mucinex 600 MG Oral Tablet Extended Release 12 Hour 1 (one) Tablet bid for 0 days Quantity: 60 {Tablet} Refills: 3 Ordered: 21-May-2019 Eduin Campoverde LPN Start : 05-May-2019 End : 21-May-2019 Inactive linaclotide 0.29 mg oral capsule (6 sources) Guanylate Cyclase-C Agonist Start: 4 End: 5 take 1 capsule by mouth once daily Linaclotide (Linzess) 290 mcg capsule Discontinued 290 ug PO DAILY April 20, 2024 9:21am June 08, 2024 3:34pm linseed oil 1000 mg oral capsule (2 sources) Start: 4 End: 4 take 1 capsule by mouth once daily Flaxseed Oil 1,000 mg capsule Discontinued 1000 mg PO DAILY July 29, 2023 12:00am January 21, 2024 12:24pm administer with a meal loratadine 10 mg oral capsule (20 sources) Start: 0 End: 0 take 1 capsule by mouth once daily as needed Claritin 10 MG Oral Capsule 1 (one) Capsule daily as needed for 30 days Quantity: 30 {Capsule} Refills: 8 Ordered: 05-May-2019 Eduin Campoverde LPN Start : 21-Apr-2019 End : 05-May-2019 Inactive Comments: Medication taken as needed. Start: 09-07-2018 End: 08-22-2020 take 1 tablet by mouth once daily as needed Loratadine 10 MG tablet Discontinued 10 mg PO DAILY as needed for Allergies September 07, 2018 12:00am August 22, 2020 5:27pm Start: 08-11-2018 End: 09-14-2018 take 1 capsule by mouth once daily as needed Claritin 10 MG Oral Capsule 1 (one) Capsule daily as needed for 30 days Quantity: 30 {Capsule} Refills: 8 Ordered: 14-Sep-2018 Jessica May CNP, CNP Andie Start : 11-Aug-2018 End : 14-Sep-2018 Inactive Comments: Medication taken as needed. Start: 09-01-2017 End: 10-01-2017 take 1 capsule by mouth once daily as needed Claritin 10 MG Oral Capsule 1 (one) Capsule daily as needed for 30 days Quantity: 30 {Capsule} Refills: 0 Ordered: 01-Oct-2017 Yadira SOUZA AndieAlonzo May CNP Jessica Rosado Start : 01-Sep-2017 End : 01-Oct-2017 Inactive Comments: Medication taken as needed. Comment on above: Medication taken as needed. lubiprostone 0.024 mg oral capsule (20 sources) Chloride Channel Activator Start: 8 End: 9 take 1 capsule by mouth twice daily Amitiza 24 MCG Oral Capsule 1 (one) Capsule bid for 0 days Quantity: 1 {Box} Refills: 0 Ordered: 09-Jun-2018 Jessica May Start : 09-Dec-2017 End : 09-Jun-2018 Inactive magnesium oxide 500 mg oral capsule (20 sources) Start: 8 End: 8 take 1 capsule by mouth once daily Magnesium Oxide (Antacid) 500 MG Oral Capsule 1 (one) Capsule daily for 30 days Refills: 0 Ordered: 01-Oct-2017 Jessica May Start : 01-Sep-2017 End : 01-Oct-2017 Inactive meclizine hydrochloride 12.5 mg oral tablet (20 sources) Antiemetic Start: 1 End: 2 take 1 tablet by mouth every eight hours as needed Meclizine HCl 12.5 MG Oral Tablet 1 (one) Tablet q8hrs prn vertigo for 0 days Quantity: 30 {Tablet} Refills: 0 Ordered: 01-Oct-2021 Kalie Cortez LPN Start : 02-Aug-2020 End : 01-Oct-2021 Inactive Start: 07-22-2017 End: 02-23-2018 take 1 tablet by mouth four times daily as needed for dizziness Meclizine 25 MG tablet Discontinued 25 mg PO 4 TIMES DAILY NEEDED as needed for Dizziness July 22, 2017 12:00am February 23, 2018 11:44am Comment on above: Medication taken as needed. meloxicam 7.5 mg oral tablet (20 sources) Nonsteroidal Anti-inflammatory Drug Start: End: 4 take 1 tablet by mouth once daily as needed for pain Meloxicam (Mobic) 7.5 mg tablet Discontinued 7.5 mg PO DAILY as needed for Pain August 30, 2020 12:00am July 29, 2023 2:56pm Start: 01-14-2016 End: 08-22-2020 take 1 tablet by mouth once daily Meloxicam 7.5 MG tablet Discontinued 7.5 mg PO DAILY January 14, 2016 12:00am August 22, 2020 5:27pm Mobic Active Multivitamin preparation (20 sources) Multivitamin [place] ctive Multivitamin Act shaheen ondansetron 4 mg disintegrating oral tablet (5 sources) Serotonin-3 Receptor Antagonist Start: 07-22-2017 End: 02-23-2018 take 1 tablet by mouth every eight hours as needed for nausea Ondansetron 4 MG tablet Discontinued 4 mg PO EVERY 8 HOURS NEEDED as needed for Nausea July 22, 2017 12:00am February 23, 2018 11:45am PARoxetine hydrochloride 40 mg oral tablet (20 sources) Serotonin Reuptake Inhibitor Start: 07-29-2023 End: 04-20-2024 take 1 tablet by mouth once daily in the morning Paroxetine Hcl 40 mg tablet Discontinued 40 mg PO EVERY MORNING February 03, 2024 9:32am April 20, 2024 9:22am Start: 08-13-2021 take 1 tablet by ching th once daily Paxil 40 MG Oral Tablet 1 (one) Tablet daily for 0 days Quantity: 30 {Tablet} Refills: 3 Ordered: 13-Aug-2021 Abby Carroll DO Start : 13-Aug-2021 Active Start: 05-25-2021 take 1 tablet by ching th once daily Paxil 40 MG Oral Tablet 1 (one) Tablet daily for 0 days Quantity: 30 {Tablet} Refills: 3 Ordered: 25-May-2021 Jessica May Mary Start : 25-May-2021 Active Start: 08-22-2020 End: 11-24-2023 take 1 tablet by mouth once daily Paroxetine Hcl (Paxil) 30 mg tablet Discontinued 30 mg PO DAILY August 22, 2020 12:00am November 24, 2023 4:57pm Start: 07-30-2019 End: 01-17-2020 take 1 tablet by mouth once daily Paxil 30 MG Oral Tablet 1 (one) Tablet daily for 30 days Quantity: 30 {Tablet} Refills: 3 Ordered: 17-Jan-2020 Eduin Campoverde LPN Start : 30-Jul-2019 End : 17-Jan-2020 Inactive Start: 01-09-2019 End: 01-09-2019 take 1 tablet by mouth once daily Paxil 30 MG Oral Tablet 1 (one) Tablet daily for 30 days Quantity: 30 {Tablet} Refills: 0 Ordered: 09-Jan-2019 Jessica May CNP, CNP Andie Start : 09-Jan-2019 End : 09-Jan-2019 Active Start: 12-10-2018 take 1 tablet by ching th once daily Paxil 30 MG Oral Tablet 1 (one) Tablet daily for 30 days Quantity: 30 {Tablet} Refills: 0 Ordered: 10-Dec-2018 Nahomy Aleman Start : 10-Dec-2018 Active Start: 07-10-2018 take 1 tablet by ching th once daily Paxil 30 MG Oral Tablet 1 (one) Tablet daily for 30 days Quantity: 30 {Tablet} Refills: 4 Ordered: 10-Jul-2018 Jessica May CNP, CNP, Mary E Start : 10-Jul-2018 Active Start: 02-03-2018 take 1 tablet by ching th once daily Paxil 30 MG Oral Tablet 1 (one) Tablet daily for 30 days Quantity: 30 {Tablet} Refills: 4 Ordered: 03-Feb-2018 Jessica May CNP, CNP, Mary E Start : 03-Feb-2018 Active Start: 09-22-2015 End: 08-22-2020 take 1 tablet by mouth once daily Paroxetine Hcl 40 MG tablet Discontinued 40 mg PO DAILY September 22, 2015 12:00am August 22, 2020 5:24pm predniSONE 10 mg oral tablet (20 sources) Start: 05-05-2019 End: 05-21-2019 predniSONE 10 MG Oral Tablet 1 (one) Tablet 3daily x 3 days, 2 dailyx 3 days 1 daily x 3 days for 0 days Quantity: 18 {Tablet} Refills: 0 Ordered: 21-May-2019 Eduin Campoverde LPN Start : 05-May-2019 End : 21-May-2019 Inactive Comments: with food Comment on above: with food rosuvastatin calcium 5 mg oral tablet (20 sources) HMG-CoA Reductase Inhibitor Start: 07-31-2020 End: 04-13-2024 take 1 tablet by mouth once daily Rosuvastatin 5 mg tablet Discontinued 5 mg PO DAILY August 30, 2020 12:00am April 13, 2024 11:52am teriparatide (20 sources) Parathyroid Hormone Analog Start: 04-07-2018 End: 06-09-2018 inject 1 mL by subcutaneous injection once daily in the morning Forteo 600 MCG/2.4ML Subcutaneous Solution 1 (one) Milliliter Qam for 30 days Quantity: 1 {Pre-filled_Pen_S yringe} Refills: 6 Ordered: 09-Jun-2018 Jessica May Start : 07-Apr-2018 End : 09-Jun-2018 Inactive Start: 04-07-2018 End: 06-09-2018 inject 1 mL by subcutaneous injection once daily in the morning Forteo 600 MCG/2.4ML Subcutaneous Solution 1 (one) Milliliter Qam for 30 days Quantity: 1 {Pre-filled_Pen_Syringe} Refills: 6 Ordered: 09-Jun-2018 Jessica May Mary Start : 07-Apr-2018 End : 09-Jun-2018 Inactive Start: 04-07-2018 End: 06-09-2018 inject 1 mL by subcutaneous injection once daily in the morning Forteo 600 MCG/2.4ML Subcutaneous Solution 1 (one) Milliliter Qam for 30 days Quantity: 1 {Pre-filled_Pen_Syringe} Refills: 6 Ordered: 09-Jun-2018 Yadira LIBBYJessica CNP, Mary E Start : 07-Apr-2018 End : 09-Jun-2018 Inactive Start: 04-07-2018 End: 06-09-2018 inject 1 mL by subcutaneous injection once daily in the morning Forteo 600 MCG/2.4ML Subcutaneous Solution 1 (one) Milliliter Qam for 30 days Quantity: 1 {Pre-filled_Pen_Syringe} Refills: 6 Ordered: 09-Jun-2018 Yadira LIBBYJessica LIBBYJessica Start : 07-Apr-2018 End : 09-Jun-2018 Inactive Start: 12-01-2017 End: 10-01-2017 take 1 mL by subcutaneous injection once daily in the morning Forteo 600 MCG/2.4ML Subcutaneous Solution 1 (one) Milliliter Qam for 30 days Quantity: 1 {Pre-filled_Pen_Syringe} Refills: 6 Ordered: 01-Dec-2017 Yadira LIBBYJessica CNP, Mary E Start : 01-Dec-2017 End : 01-Oct-2017 Active Start: 07-22-2017 End: 02-23-2018 inject 20 ug by subcutaneous injection once daily Teriparatide 20 MCG/DOSE pen injector Discontinued 20 ug SQ DAILY July 22, 2017 12:00am February 23, 2018 11:45am levothyroxine sodium 0.025 mg oral tablet (20 sources) l-Thyroxine Start: 07-29-2023 End: 04-28-2024 take 1 tablet by mouth once daily Levothyroxine 25 mcg tablet Discontinued 25 ug PO daily December 16, 2023 8:12am April 28, 2024 9:56am Start: 05-15-2020 End: 07-29-2023 take 1 tablet by mouth once daily Levothyroxine 75 mcg tablet Discontinued 75 ug PO DAILY August 22, 2020 12:00am July 29, 2023 2:56pm Start: 07-30-2019 take 1 tablet by ching th once daily Levothyroxine Sodium 75 MCG Oral Tablet 1 (one) Tablet daily for 30 days Quantity: 30 {Tablet} Refills: 3 Ordered: 13-Jan-2020 Xiomaracarrollcarolee SOUZA Andie Jessica May CNP Start : 13-Jan-2020 Active Start: 01-09-2019 End: 01-09-2019 take 1 tablet by mouth once daily Levothyroxine Sodium 75 MCG Oral Tablet 1 (one) Tablet daily for 30 days Quantity: 30 {Tablet} Refills: 0 Ordered: 09-Jan-2019 Yadira LIBBYJsesica CNP, Mary E Start : 09-Jan-2019 End : 09-Jan-2019 Active Start: 12-10-2018 End: 12-09-2018 take 1 tablet by mouth once daily Levothyroxine Sodium 75 MCG Oral Tablet 1 (one) Tablet daily for 30 days Quantity: 30 {Tablet} Refills: 0 Ordered: 10-Dec-2018 Nahomy Aleman Start : 10-Dec-2018 End : 09-Dec-2018 Active Start: 12-10-2018 End: 12-09-2018 take 1 tablet by mouth once daily Levothyroxine Sodium 75 MCG Oral Tablet 1 (one) Tablet daily for 30 days Quantity: 30 {Tablet} Refills: 0 Ordered: 10-Dec-2018 Nahomy Aleman Start : 10-Dec-2018 End : 09-Dec-2018 Active Start: 11-09-2018 take 1 tablet by ching th once daily Levothyroxine Sodium 75 MCG Oral Tablet 1 (one) Tablet daily for 30 days Quantity: 30 {Tablet} Refills: 0 Ordered: 09-Nov-2018 Eduin Brown Start : 09-Nov-2018 Active Start: 07-13-2018 take 1 tablet by ching th once daily Levothyroxine Sodium 75 MCG Oral Tablet 1 (one) Tablet daily for 30 days Quantity: 30 {Tablet} Refills: 4 Ordered: 13-Jul-2018 Yadira LIBBY Jessica Shetty CNP Start : 13-Jul-2018 Active Start: 02-03-2018 take 1 tablet by ching th once daily Levothyroxine Sodium 75 MCG Oral Tablet 1 (one) Tablet daily for 30 days Quantity: 30 {Tablet} Refills: 4 Ordered: 03-Feb-2018 Xiomarajohn LIBBY Jessica May SPANISH LECTURERJessica Start : 03-Feb-2018 Active Start: 09-22-2015 End: 08-22-2020 take 3 tablets by mouth once daily Levothyroxine 25 MCG tablet Discontinued 75 ug PO DAILY September 22, 2015 12:00am August 22, 2020 5:24pm Start: 09-22-2015 End: 08-22-2020 take 75 ug by mouth once daily Levothyroxine Discontin ued 75 MCG PO DAILY September 22, 2015 12:00am August 22, 2020 5:24pm tiZANidine 4 mg oral capsule (20 sources) Central alpha-2 Adrenergic Agonist Start: 08-22-2020 End: 08-30-2020 take 1 capsule by mouth twice daily as needed Tizanidine (Zanaflex) 4 mg capsule Discontinued 4 mg PO TWICE A DAY as needed August 22, 2020 12:00am August 30, 2020 10:10am Start: 10-20-2018 End: 11-19-2018 take 1 tablet by mouth three times daily as needed for muscle spasms tiZANidine HCl 4 MG Oral Tablet 1 (one) Tablet three times a day as needed for spasms for 30 days Refills: 0 Ordered: 20-Oct-2018 Jessica May Start : 20-Oct-2018 End : 19-Nov-2018 Inactive Comments: Medication taken as needed. dr. lovelace Start: 02-09-2017 End: 02-23-2018 take 1 tablet by mouth three times daily as needed for pain Tizanidine 4 MG tablet Discontinued 4 mg PO 3 TIMES DAILY NEEDED as needed for Pain, MUSCLE SPASMS February 09, 2017 1:00am February 23, 2018 11:45am Comment on above: Medication taken as needed. [facility] tra[facility]ide 50 mg oral tablet (8 sources) Opioid Agonist Start: 07-29-19 End: 06-23-19 25 take 1 tablet by mouth every four hours as needed for pain Tramadol 50 mg tablet Discontinued 50 mg PO EVERY 4 HOURS as needed for pain 90 December 02, 2023 8:34am June 22, 2024 10:27am Vitamin K2-Vitamin D3 45-2000 MCG-UNIT Oral Capsule (14 sources) Start: 08-03-19 21 take 45-2000 capsules by mouth once daily Vitamin K2-Vitamin D3 45-2000 MCG-UNIT Oral Capsule 1 (one) Capsule daily for 0 days Quantity: 90 {Capsule} Refills: 3 Ordered: 02-Aug-2020 Eduin Campoverde LPN Start : 02-Aug-2020 Active Start: 08-02-2020 take 45-2000 capsule s by mouth once daily Vitamin K2-Vitamin D3 45-2000 MCG-UNIT Oral Capsule 1 (one) Capsule daily for 0 days Quantity: 90 {Capsule} Refills: 3 Ordered: 02-Aug-2020 Yadira SPANISH LECTURER, Andie Cijohn SPANISH LECTURER, Jessica Rosado Start : 02-Aug-2020 Active Vitamin K2-Vitamin D3 45-2000 MCG-UNIT Oral Capsule (10 sources) Start: 08-02-2020 take 45-2000 capsules by mouth once daily Vitamin K2-Vitamin D3 45-2000 MCG-UNIT Oral Capsule 1 (one) Capsule daily for 0 days Quantity: 90 {Capsule} Refills: 3 Ordered: 02-Aug-2020 Eduin Campoverde LPN Start : 02-Aug-2020 Active Problems Active Problems Problem Classification Problem Date Documented Date Episodic/Chronic Acquired foot deformities (20 sources) Hammer toe; Translations: [Hammer toe of right foot] 07-13-2018 Chronic Comment on above: Had surgery June 15, by Dr. Mukherjee [facility] improving with boot Administrative/social admission (18 sources) Pneumococcal vaccination given; Translations: [Pneumococcal vaccination given] 12-09-2017 Episodic Anxiety disorders (20 sources) Anxiety; Translations: [Anxiety] 12-09-2017 Chronic Cancer of thyroid (20 sources) Malignant tumor of thyroid gland; Translations: [Thyroid Cancer] Onset: 4 01-17-2020 Chronic Comment on above: 2006 Cancer of thyroid (20 sources) History of malignant neoplasm of thyroid; Translations: [History of thyroid cancer] 12-09-2017 Episodic Comment on above: 2006 Repeat US has cyst and small lymph nodepartial loberemoved l Dr Ware in [place] 2006 Cardiac dysrhythmias (3 sources) Cardiac arrhythmia; Translations: [Cardiac arrhythmia, unspecified] Onset: 4 01-06-2024 Chronic Chronic obstructive pulmonary disease and bronchiectasis (20 sources) Chronic obstructive lung disease; Translations: [COPD (chronic obstructive pulmonary disease)] 05-21-2019 Chronic Conditions associated with dizziness or vertigo (20 sources) Vertigo; Translations: [Vertigo] 12-09-2017 Episodic Comment on above: will try exercises f or vertigo if not helping to Dr. Burns Deficiency and other anemia (2 sources) Anemia; Translations: [Anemia, unspecified] 01-06-2024 Episodic Disorders of lipid metabolism (20 sources) Hypercholesterolemia; Translations: [Hypercholesteremia] Onset: 4 07-31-2020 Chronic Comment on above: LDL 227, on 07-20-20 s tarting crestor E Codes: Fall (11 sources) Fall; Translations: [Unspecified fall, initial encounter] Episodic Esophageal disorders (4 sources) Gastroesophageal reflux disease; Translations: [Gastro-esophageal reflux disease without esophagitis] Onset: 5 01-06-2024 Chronic Fever of unknown origin (19 sources) Fever with chills Episodic Headache; including migraine (20 sources) Migraine; Translations: [Migraine] 09-14-2018 Chronic Comment on above: was put on elavil (a mytrip) at [facility] and [facility] admit on 09-07-18 was put on elavil (a mytrip) at [facility], this has caused wt Antony and PCT admit on 09-07-18 Headache; including migraine (20 sources) Headache; including migraine Hemorrhoids (20 sources) Hemorrhoids; Translations: [Hemorrhoid] 12-09-2017 Episodic Immunizations and screening for infectious disease (20 sources) Need for prophylactic vaccination and inoculation against influenza; Translations: [Encounter for immunization] 04-13-2018 Episodic Intracranial injury (20 sources) Concussion with loss of consciousness of unspecified duration, initial encounter; Translations: [Concussion] Resolved: 8 12-09-2017 Episodic Comment on above: hit head with garage door had concussion, smacked head, daughter took her to ER Malaise and fatigue (20 sources) Asthenia; Translations: [Debility] Onset: 5 10-20-2018 Episodic Mood disorders (20 sources) Depression; Translations: [Depressive disorder] 12-09-2017 Chronic Comment on above: stable on paxil and amitryptyline Mood disorders (20 sources) Mood disorders Mycoses (5 sources) Tinea faciei; Translations: [Other dermatophytoses] 08-22-2020 Episodic Nonmalignant breast conditions (20 sources) Breast lump; Translations: [Breast tenderness] 10-20-2018 Episodic Comment on above: RT Nonspecific chest pain (20 sources) Chest discomfort; Translations: [Chest pressure] Resolved: 9 06-09-2018 Episodic Nutritional deficiencies (20 sources) Vitamin D deficiency; Translations: [Vitamin D deficiency] 10-20-2018 Chronic Comment on above: last level Nov 2017 , takes 50,000 u weekly last level July 2020 33 needs to go back on last level July 2020 33 needs to go back on instructed Osteoarthritis (20 sources) Arthritis; Translations: [Arthritis] 12-09-2017 Chronic Osteoporosis (20 sources) Osteoporosis; Translations: [Osteoporosis] Onset: 5 12-09-2017 Chronic Comment on above: was managed by Dr. Ute silva. is on Forteo (2016) daily shot, started Mar 2017 end Mar [address] Ute silva. is on Forteo (2016) daily shot, started Mar 2017 to end Mar 2019, but had hypercalcemia so stopped , repeating calcium today, last bone density 09-25-[address] Ute silva. is on Forteo (2016) daily shot, started Mar 2017 to end Mar 2019, but had hypercalcemia so stopped , , last bone density 09-25-17, now has fracture compression new Apr [address] was managed by Dr. Ute silva. is on Forteo (2016) daily shot, started Mar 2017 to end Mar 2019, but had hypercalcemia so stopped , , last bone density 09-25-17, now has fracture compression new Apr [address] Started Prolia 5-Is going to get stimulator, has percocett prn was managed by Dr. Ute silva. is on Forteo (2016) daily shot, started Mar 2017 to end Mar 2019, but had hypercalcemia so stopped , , last bone density 09-25-17, now has fracture compression new Apr [address]. Started Prolia 5-6-2019Not on percocett, just muscle relaxer -last bone density , due this year after 11/01. Prolia injection today-was managed by Dr. Leyva, was on Forteo (2016) daily shot, started Mar 2017 to end Mar 2019, but had hypercalcemia so stopped , -compression fx Apr [address] Started Prolia 5-6-2020 Other acquired deformities (20 sources) Cervical spondylosis; Translations: [Cervical spondylolysis] 01-17-2020 Episodic Comment on above: Saw Dr. Aviles and recom mend conservative rx for now getting injections, with Hilario, uses tizanidine prn, Gabapentin 300 tid Other and unspecified benign neoplasm (2 sources) Leiomyoma; Translations: [Benign neoplasm of connective and other soft tissue, unspecified] 01-06-2024 Episodic Other and unspecified benign neoplasm (4 sources) Adenomatous polyp of colon ; Translations: [Benign neoplasm of colon, unspecified] 06-08-2024 Episodic Other and unspecified benign neoplasm (1 source) Benign neoplasm of colon, unspecified; Translations: [Benign neoplasm of colon, unspecified] Onset: 5 Episodic Other circulatory disease (10 sources) Orthostatic hypotension; Translations: [Orthostatic hypotension] 10-01-2021 Episodic Comment on above: -hospital stay, was orthostatic +-compression stockings, stay hydrated-consider BP support medication such as florinef or midodrine if continues to have issues-consider echocardiogram in future if not improving, unless already performed. -keep BP log and bring with you next appt Other circulatory disease (2 sources) Orthostatic hypotension; Translations: [Orthostatic hypotension] Episodic Other connective tissue disease (4 sources) Ganglion cyst of left hand; Translations: [Ganglion, left hand] 06-08-2024 Episodic Other connective tissue disease (2 sources) Ganglion of wrist; Translations: [Ganglion, left wrist] 06-22-2024 Episodic Other connective tissue disease (1 source) Ganglion, left wrist; Translations: [Ganglion, left wrist] Onset: 5 Episodic Other connective tissue disease (1 source) Ganglion, left hand; Translations: [Ganglion, left hand] Onset: 5 Episodic Other fractures (20 sources) Compression fracture of thoracic spine; Translations: [Compression fracture of T10 vertebra] 09-14-2018 Episodic Comment on above: known compression fr acture was on Forteo> 2 yrs Other fractures (5 sources) Compression fracture of lumbar spine; Translations: [Wedge compression fracture of fifth lumbar vertebra, initial encounter for closed fracture] 08-22-2020 Episodic Other gastrointestinal disorders (2 sources) Irritable bowel syndrome characterized by constipation; Translations: [Irritable bowel syndrome with constipation] 01-06-2024 Chronic Other gastrointestinal disorders (1 source) Irritable bowel syndrome with constipation; Translations: [Irritable bowel syndrome with constipation] Onset: 4 Chronic Other gastrointestinal disorders (20 sources) Constipation; Translations: [Constipation] 12-09-2017 Episodic Comment on above: from opiod, will michelle ple amitiza 24mcg bid Other gastrointestinal disorders (1 source) Constipation, unspecified; Translations: [Constipation, unspecified] Onset: 5 Episodic Other lower respiratory disease (20 sources) H/O: pneumonia; Translations: [Pneumonia] 12-09-2017 Episodic Other lower respiratory disease (20 sources) Dyspnea on exertion; Translations: [Shortness of breath on exertion] 06-09-2018 Episodic Comment on above: had holter monitor Other lower respiratory disease (20 sources) Dyspnea; Translations: [Shortness of breath] Resolved: 0 05-21-2019 Episodic Comment on above: has COPD and sleep a pnea, has seen Sibilia has follow up, using symbicort and proair Other lower respiratory disease (2 sources) History of chronic obstructive airway disease; Translations: [Personal history of other diseases of the respiratory system] Episodic Other lower respiratory disease (2 sources) Shortness of breath; Translations: [Shortness of breath] Episodic Other nervous system disorders (5 sources) Chronic pain; Translations: [Other chronic pain] 09-01-2013 Chronic Other nutritional; endocrine; and metabolic disorders (20 sources) Body mass index 25-29 - overweight; Translations: [BMI 27.0-27.9,adult] Resolved: 9 12-09-2017 Chronic Other nutritional; endocrine; and metabolic disorders (20 sources) Hypercalcemia; Translations: [Serum calcium elevated] Resolved: 0 06-09-2018 Chronic Comment on above: 10.4 per [facility] 2019, on Forteo, will hold Forteo for 1 month and reevaluate the Rogelio, mammogram done 09-25-17 normal 10.4 per [facility] 2019, on Forteo, will hold Forteo for 1 month and reevaluate the Rogelio, now on prolia (last shot July 21, 2019) Other nutritional; endocrine; and metabolic disorders (20 sources) Body mass index 30+ - obesity; Translations: [BMI 30.0-30.9,adult] 09-29-2019 Chronic Other nutritional; endocrine; and metabolic disorders (20 sources) Body mass index 25-29 - overweight; Translations: [BMI 26.0-26.9,adult] Resolved: 9 11-27-2018 Episodic Other nutritional; endocrine; and metabolic disorders (20 sources) Overweight in adulthood with body mass index of 25 or more but less than 30; Translations: [BMI 26.0-26.9,adult] Resolved: 9 11-27-2018 Episodic Other nutritional; endocrine; and metabolic disorders (4 sources) Weight increased; Translations: [Abnormal weight gain] 06-08-2024 Episodic Other skin disorders (20 sources) Skin lesion; Translations: [Skin lesion] Resolved: 2 08-25-2020 Episodic Comment on above: ? new neoplasm vs ir ritated nevi Other skin disorders (1 source) Localized swelling, mass and lump, left upper limb; Translations: [Localized swelling, mass and lump, left upper limb] Onset: Episodic Other upper respiratory disease (20 sources) Seasonal allergy; Translations: [Seasonal allergies] 12-09-2017 Chronic Pleurisy; pneumothorax; pulmonary collapse (20 sources) Atelectasis; Translations: [Atelectasis] Resolved: 9 09-14-2018 Episodic Comment on above: sending for incentiv e spirometer Pneumonia (except that caused by tuberculosis or sexually transmitted disease) (20 sources) Pneumonia; Translations: [Pneumonia] 01-17-2020 Episodic Residual codes; unclassified (20 sources) Postprocedural state finding; Translations: [Spinal cord stimulator status] 01-17-2020 Chronic Comment on above: 01-03-[address] Velasquez linn and is working well, down to percocett prn Residual codes; unclassified (5 sources) Obstructive sleep apnea syndrome; Translations: [Obstructive sleep apnea (adult) (pediatric)] 08-28-2020 Chronic Residual codes; unclassified (2 sources) Dependence on continuous positive airway pressure ventilation; Translations: [Dependence on other enabling machines and devices] 01-06-2024 Chronic Residual codes; unclassified (20 sources) Needs influenza immunization; Translations: [Need for prophylactic vaccination and inoculation against influenza (Renamed from Need for immunization against influenza)] 12-09-2017 Episodic Residual codes; unclassified (2 sources) Vaccination required; Translations: [Need for shingles vaccine] 07-13-2018 Episodic Residual codes; unclassified (20 sources) Requires varicella vaccination; Translations: [Need for shingles vaccine] 07-13-2018 Episodic Residual codes; unclassified (20 sources) Past history of procedure; Translations: [H/O breast biopsy] 10-20-2018 Episodic Comment on above: [facility] done at [facility] 6-7 years ago Residual codes; unclassified (20 sources) Family history of celiac disease; Translations: [Family history of celiac disease] 05-21-2019 Episodic Residual codes; unclassified (20 sources) Non-smoker; Translations: [Nonsmoker] 01-17-2020 Episodic Residual codes; unclassified (20 sources) Memory impairment; Translations: [Memory change] 07-31-2020 Episodic Comment on above: tsh normal cholester ol elevated, starting choles med tsh normal cholester ol elevated, starting choles med, CT and carotid good Residual codes; unclassified (5 sources) Forgetful; Translations: [Forgetfulness] 10-01-2021 Episodic Comment on above: -do mini mental next OV Residual codes; unclassified (2 sources) Family history of lupus erythematosus 10-29-2023 Episodic Screening and history of mental health and substance abuse codes (20 sources) Tobacco use and exposure - finding; Translations: [History of smoking] 07-13-2018 Chronic Comment on above: quit 6 yrs ago quit 6 yrs ago, on p roair, CTA 09-07-18 normal Screening and history of mental health and substance abuse codes (20 sources) Tobacco use and exposure - finding; Translations: [History of smoking] Onset: 5 01-17-2020 Episodic Comment on above: quit 6 yrs ago, on p roair, CTA 09-07-18 normal Spondylosis; intervertebral disc disorders; other back problems (20 sources) Cervical spondylosis; Translations: [Displacement of lumbar intervertebral disc without myelopathy] 12-09-2017 Chronic Comment on above: Saw Dr. Aviles and recom mend conservative rx for now getting injections, with Hilario Saw Dr. Aviles and recom mend conservative rx for now getting injections, with Hilario, uses tizanidine prn, Gabapentin 300 tid Spondylosis; intervertebral disc disorders; other back problems (20 sources) Backache; Translations: [Back pain] 12-09-2017 Episodic Comment on above: Sees Dr. Jacobs for injections and history compression fracture, will be seeing Dr. Aviles. for neck Sees Dr. Jacobs for injections and history compression fracture, got oblation, will be seeing Dr. Aviles. for neck did not recom surgery. Compression frature and osteoporosis, Sees Dr. Jacobs for injections and history compression fracture, got oblation, will be seeing Dr. Aviles. for neck did not recom surgery.Recent fall and worsening back pain had MRI spine Nov 2018- abnormal suggest repeat 3-6 months. Abnormal MRI now with acute compression fractures osteoporosis. Was on Fosomax Compression frature and osteoporosis, Sees Dr. Jacobs for injections and history compression fracture, got oblation, will be seeing Dr. Aviles. for neck did not recom surgery.Recent fall and worsening back pain had MRI spine Nov 2018- abnormal suggest repeat 3-6 months. Abnormal MRI now with acute compression fractures osteoporosis. Was on FosomaxJust got back nerve stimulator which is helpful Sprains and strains (5 sources) Strain of neck muscle; Translations: [Strain of muscle, fascia and tendon at neck level, initial encounter] 08-17-2021 Episodic Syncope (5 sources) Syncope; Translations: [Syncope and collapse] 08-17-2021 Episodic Thyroid disorders (20 sources) Hypothyroidism; Translations: [Hypothyroid] Onset: 5 12-09-2017 Chronic Comment on above: good level stay on s saul dose synthroid good level stay on s saul dose levothyroxine, last level 3-26 Thyroid disorders (3 sources) Disorder of thyroid gland; Translations: [Disorder of thyroid, unspecified] Onset: 5 01-06-2024 Episodic Unclassified (20 sources) Breast neoplasm screening status; Translations: [D-dimer above reference range] Onset: 4 Resolved: 0 12-09-2017 Episodic Unclassified (20 sources) FH: Diabetes mellitus; Translations: [Family history of diabetes mellitus] 12-09-2017 Episodic Unclassified (20 sources) BMI 27.0-27.9,adult Unclassified (20 sources) Unclassified (20 sources) Nonsmoker; Translations: [Non-smoker] 12-09-2017 Unclassified (20 sources) History of thyroid cancer Unclassified (20 sources) Cervical spondylolysis Unclassified (20 sources) Encounter for screening mammogram for breast cancer Unclassified (20 sources) Need for shingles vaccine Unclassified (20 sources) Serum calcium elevated Unclassified (20 sources) Chest pressure Unclassified (20 sources) Shortness of breath on exertion Unclassified (20 sources) BMI 26.0-26.9,adult Unclassified (20 sources) History of smoking Unclassified (20 sources) Hammer toe of right foot Unclassified (20 sources) Breast lump on right side at 11 o'clock position Unclassified (20 sources) BMI 28.0-28.9,adult Unclassified (20 sources) Debility Unclassified (20 sources) H/O breast biopsy Unclassified (20 sources) BMI 30.0-30.9,adult Unclassified (20 sources) BMI 29.0-29.9,adult Unclassified (20 sources) Postprocedural state finding; Translations: [Spinal cord stimulator status] 01-17-2020 Comment on above: 01-03-[address] Velasquez linn and is working well, down to percocett prn Unclassified (20 sources) Memory change Unclassified (20 sources) Hypercholesteremia Unclassified (2 sources) Ganglion cyst of finger of left hand; Translations: [M67.442 - Ganglion, left hand] Unclassified (2 sources) D12.6 - Benign neoplasm of colon, unspecified,E03.9 - Hypothyroidism, unspecified Unclassified (1 source) Personal history of adenomatous and serrated colon polyps; Translations: [Personal history of adenomatous and serrated colon polyps] Onset: Past or Other Problems Problem Classification Problem Date Documented Date Episodic/Chronic Cardiac dysrhythmias (20 sources) Tachycardia; Translations: [Tachycardia] Onset: 02-04-2024 02-27-2021 Episodic Other injuries and conditions due to external causes (20 sources) Concussion injury of body structure; Translations: [Concussion] Resolved: 12-09-2017 04-13-2018 Episodic Comment on above: hit head with garage door had concussion, smacked head, daughter took her to ER Other lower respiratory disease (3 sources) Personal history of other diseases of the respiratory system; Translations: [Personal history of other diseases of respiratory system] Onset: 11-18-2023 Episodic Other non-epithelial cancer of skin (20 sources) History of malignant neoplasm of skin; Translations: [Malignant neoplasm of skin] Onset: 11-18-2023 12-09-2017 Episodic Comment on above: 2017 Unclassified (20 sources) Encounter for screening for malignant neoplasm of colon (Renamed from Special screening for malignant neoplasms, colon); Translations: [Screening status] 12-09-2017 Unclassified (20 sources) 3 normal vaginal births w/o complications 12-09-2017 Unclassified (20 sources) Hemorrhoid Unclassified (20 sources) Screening status; Translations: [Encounter for screening for malignant neoplasm of colon (Renamed from Special screening for malignant neoplasms, colon)] 12-09-2017 Unclassified (20 sources) Non-smoker; Translations: [Nonsmoker] 12-09-2017 Unclassified (20 sources) Patient encounter status; Translations: [Encounter for screening mammogram for breast cancer] Resolved: 12-09-2017 12-09-2017 Unclassified (20 sources) Compression fracture of T10 vertebra Unclassified (20 sources) Family history of celiac disease Unclassified (20 sources) Lumbosacral disc herniation Unclassified (20 sources) D-dimer, elevated Unclassified (20 sources) Screening for lipid disorders Unclassified (2 sources) Forgetfulness Results Test Name Value Interpretation Reference Range Facility Low Dose CT Lung Screeningon 08-23-[address] Lung Screening [facility] Imaging Services [address] [place] [id number] Lung Screening MR#: [id number] Acct: [id number] Name: PINA ORTEGA Rep #: [id number] : 1960 F 64 From: Sg gorman MD PCP: Dr. Vu Ramon, DO Status: [facility] Study: Low Dose CT Lung Screening Date of Exam: 08/23 Exam# [id number] Ordering Dr: Eyad Smith MD PROCEDURE: LOW DOSE CT LUNG SCREENING 08/23/2024 REASON FOR EXAM: SMOKER TECHNIQUE: Low Dose CT Lung screening without contrast. Coronal and Sagittal reconstruction series were provided. One or more dose reduction techniques were used (e.g., Automated exposure control, adjustment of the mA and/or kV according to patient size, use of iterative reconstruction technique). REFERENCE LINK: [employer] Lung-RADS RADIATION DOSE SUMMARY: CTDlvol: 3.02 mGy DLP: 83 mGycm COMPARISON: 08/18/2023. FINDINGS: PULMONARY NODULES: (Only nodules >3mm are reported) Nodules described below are on series 2 unless otherwise specified. Mild bilateral basilar atelectatic pulmonary changes. Mild cardiomegaly. Sliding hiatal hernia. Mild coronary artery calcifications. Prior osteopenia. Multilevel vertebroplasty. Diffuse spondylosis. Normal unenhanced main pulmonary artery and right and left pulmonary arteries. Normal bilateral peripheral pulmonary arteries. Normal thoracic aorta and visualized great vessels. There is no demonstrated aortic aneurysm. Normal heart and pericardium. Normal mediastinum. Normal hilar regions. Normal visualized trachea and bronchi. Normal pleura. Normal visualized upper abdomen. Unremarkable spinal stimulator device. CT/Low Dose CT Lung Screening IMPRESSION: Bilateral basilar atelectatic pulmonary changes. Coronary artery calcification (CAC) is is present Lung-RADS Category: 1 NEGATIVE. RECOMMEND 12-MONTH SCREENING LDCT. Reading Location: [place] [address] CC: Dr. Vu Ramon DO; Dr. Eyad Smith MD Strategic Planner: Signed Normal [facility] Other Unlisted US Procedureo n 06-28-2024 Other Unlisted US Procedure [facility] Imaging Services [address] [place] [address] Other Unlisted US Procedure MR#: [id number] Acct: [id number] Name: PINA ORTEGA Rep #: [id number] : 1960 F 64 From: Coleman coreas MD PCP: Dr. Vu Ramon DO Status: [facility] Study: Other Unlisted US Procedure Date of Exam: 06/15 07/09 Exam# [id number] Ordering Dr: Cale Cruz MD EXAM: Ultrasound of the left palm. CLINICAL HISTORY: Palpable lump. COMPARISON: None TECHNIQUE: Imaging of the palpable region was performed with ultrasound. FINDINGS: The palpable abnormality corresponds to a 4 mm x 6 mm x 2 mm cyst. US/Other Unlisted US Procedure IMPRESSION: The palpable lump corresponds to a 4 mm x 6 mm x 2 mm cyst. Electronically Signed By: Coleman mg 06/28/2024 13:22 Reading Location: [place] [address] CC: Dr. Vu Ramon DO; Dr. Cale Cruz MD Strategic Planner: Signed Normal [facility] Orthopedic Visit Reporton Orthopedic Visit Report [facility] [address] [place] [address] [address] [place] [address] OFFICE VISIT Date of Service: 06/22/24 MR#: [id number] Acct: [id number] Name: PINA ORTEGA Rep #: [id number] : 1960 Provider: Dr. Cale mg MD Age/Sex: 64/F Location: [facility] Status: Signed Intake Vital Signs 06/08/24 15:35 06/22/24 10:23 Height 5 ft 7 in 5 ft 7 in Weight: 184 lb 184 lb 2 oz BMI 28.8 28.8 BP 110/72 Blood Pressure Location Lt brachial Position Sitting Respiration 16 Pulse 70 Pulse Source Monitor Temp 97.2 F L Temp Source Temporal Pulse Oximetry (%) 97 Oxygen Delivery Method room air Intake Visit Reasons: LEFT HAND Accompanied by: Self Is patient in pain?: Yes (when using the hand) Allergies No Known Allergies Allergy (Verified 06/22/24 10:27) Medications ???Medication ???Instructions ???Recorded ???Confirmed ???Type albuterol sulfate 90 mcg/actuation 2 puff inhalation PRN PRN Sob / Or 09/07/18 06/22/24 History aerosol inhaler Wheezing magnesium 200 mg tablet 200 mg PO DAILY 07/29/23 06/22/24 History mecobalamin (vitamin B12) 1,000 1,000 mcg PO DAILY 07/29/23 History mcg lozenges vitamin D3 125 mcg (5,000 cap PO 07/29/23 06/22/24 History unit)-vitamin K2 180 mcg capsule (K2-D3 Max) Handicap placard #1 ea 10/29/23 06/22/24 Rx denosumab 60 mg/mL subcutaneous 60 mg subcut ONCE #1 mL 03/22/24 0 06/22/24 Rx syringe (Prolia) fluticasone furoate 200 1 inh inhalation DAILY copd #60 ea 04/13/24 06/22/24 Rx mcg-vilanterol 25 mcg/dose inhalation powder (Breo Ellipta) rosuvastatin 5 mg tablet 5 mg PO DAILY cholesterol #90 tabs 04/13/24 06/22/24 Rx tiotropium bromide 2.5 2 puff inhalation QDAY #4 grams 06/22/24 Rx mcg/actuation mist for inhalation (Spiriva Respimat) amitriptyline 50 mg tablet 50 mg PO QHS #90 tabs 04/20/2411/08 Rx paroxetine HCl 40 mg tablet 40 mg PO QAM #90 tabs 04/20/2411/08 Rx levothyroxine 25 mcg tablet 25 mcg PO QDAY #90 tabs 04/28/24 0 06/22/24 Rx castor oil 15 ml PO ONCE #500 mL 06/17/2411/08 Rx pantoprazole 40 mg tablet,delayed 40 mg PO DAILY #90 tabs 06/17/24 06/22/24 Rx release peg 3350-electrolytes 236 240 ml PO Q10M #4,000 mL 06/17/24 06/22/24 Rx gram-22.74 gram-6.74 gram-5.86 gram solution (Golytely) [facility] Medical History Ganglion, left wrist Abnormal EKG Arrhythmia Basal cell carcinoma Irritable bowel syndrome with constipation Thyroid cancer Fibroids Skin cancer Anemia Hypothyroidism Rheumatoid arthritis Osteoporosis GERD (gastroesophageal reflux disease) CPAP (continuous positive airway pressure) dependence COPD (chronic obstructive pulmonary disease) Migraines Hyperlipidemia Adult BMI 30.0-30.9 kg/sq m Obstructive sleep apnea Back pain Thyroid disease Shoulder pain Compression fracture of L5 lumbar vertebra Anxiety and depression Osteoarthritis Vitamin D deficiency Surgical History (Updated 06/22/24 @ 10:28 by Samra Powers) History of kyphoplasty History of tonsillectomy History of thyroidectomy H/O: hysterectomy Family History Mother Heart disease Social History adopted: No household members: family number of children: 3 current occupational status: disabled pets and animals: Yes sexually active: No Smoking Status: Former smoker quit date: 03/17/14 pack-years: 22 Tobacco: How many years used: 22 alcohol intake: never substance use type: does not use caffeine: Yes (2-3) Type: coffee Number of servings: 3 frequency: does not exercise do you feel safe at home: Yes HPI LEFT HAND Details: This documentation accurately reflects the service provided and the decisions made by me, Dr. Cale Cruz MD 06/22/24 0924. Part of today???s visit was documented by [ ], acting as scribe. PINA ORTEGA is a 64 year old F here today for L hand ganglion cyst / mass. on flexor area of left ring finger. 1 week. never had before. hurts to press on it. hit the fingers a month ago 'stoved' them. still able to make fist. rhd. retired. no other lumps bumps or symptoms. no locking or catching. hx of left side partial thyroidectomy and skin cancer removed from nose. but no radiation or chemo. Coding Level of Care Code Off vis,new,level 3 Diagnoses Ganglion, left wrist M67.432 Assessment and Plan Assessment and Plan (1) Ganglion, left wrist: Status: Acute Plan: PINA ORTEGA is a 64 year old F here today for L hand ganglion cyst / mass. Likely flexor tendon ganglion cyst. Will order an US to assess and FU after. Mean time, AAT. Ganglion (more content not included)... Normal [facility] Gastroenterology Visit Repor ton 06-17-2024 Gastroenterology Visit Report [facility] [address] [place] [address] OFFICE VISIT Date of Service: 06/17/24 MR#: [id number] Acct: [id number] Name: PINA ORTEGA Rep #: [id number] : 1960 Provider: CLINIC MANAGER-C Belinda Ev ans Age/Sex: 64/F Location: [facility] Status: Signed Intake Vital Signs 06/08/24 15:35 Height 5 ft 7 in Weight: 184 lb BMI 28.8 BP 110/72 Blood Pressure Location Lt brachial Position Sitting Respiration 16 Pulse 70 Pulse Source Monitor Temp 97.2 F L Temp Source Temporal Pulse Oximetry (%) 97 Oxygen Delivery Method room air Intake Visit Reasons: New PT Chief Complaint: not feeling well Allergies No Known Allergies Allergy (Verified 06/08/24 15:24) PFSH Medical History Abnormal EKG Arrhythmia Basal cell carcinoma Irritable bowel syndrome with constipation Thyroid cancer Fibroids Skin cancer Anemia Hypothyroidism Rheumatoid arthritis Osteoporosis GERD (gastroesophageal reflux disease) CPAP (continuous positive airway pressure) dependence COPD (chronic obstructive pulmonary disease) Migraines Hyperlipidemia Adult BMI 30.0-30.9 kg/sq m Obstructive sleep apnea Back pain Thyroid disease Shoulder pain Compression fracture of L5 lumbar vertebra Anxiety and depression Osteoarthritis Vitamin D deficiency Surgical History History of tonsillectomy History of thyroidectomy H/O: hysterectomy Family History Mother Heart disease Social History adopted: No household members: family number of children: 3 current occupational status: disabled pets and animals: Yes sexually active: No Smoking Status: Former smoker quit date: 03/17/14 pack-years: 22 Tobacco: How many years used: 22 alcohol intake: never substance use type: does not use caffeine: Yes (2-3) Type: coffee Number of servings: 3 frequency: does not exercise do you feel safe at home: Yes HPI HPI Chief Complaint: not feeling well Details: PINA ORTEGA, is a 64 F who presents to the office today for establishment with [facility] for management of screening colonoscopies and complaints of constipation. Hx: tonsill-,thyroid-,hyst er-ectomy; fmr smkr, no ETOH, caffeine 3x/d, osteoporosis; last colonoscopy 5yrs ago- adenomas of unknown quantity removed. She reports smoking history, quit 15 yrs ago and was recently diagnosed with COPD. She reports daily BMs of small christy and usually only one fully complete BM per month. She has used Linzess in the past; states first month was great, then she began to have diarrhea urge incontinence from its daily use and stopped it. She has tried psyllium husk, polyethylene glycol QAM, dulcolax tablets, and magnesium citrate; Of these, mag citrate has worked the best for her. She reports heartburn and reflux with red sauces and abdominal pain with ice cream; she tolerates whole milk well. She denies other food sensitivities. She reports abdominal bloating, excessive gas, and very rarely hematochezia from a hemorrhoid. She denies difficulty chewing and swallowing, throat clearing, diarrhea-unless provoked by a medication, and melena. She reports that her mother dealt with chronic constipation and her brother from colon cancer. ROS Const Constitutional: Positive for fatigue, decreased energy and weight change; No chills or fever(s) Eyes Eyes: No blurry vision or change in vision ENT ENT: No abnormal hearing or difficulty swallowing Resp Respiratory: Positive for cough (COPD) Cardio Cardiology: Positive for leg pain with exertion; No chest pain at rest or chest pain with exertion Gastro GI: Positive for abdominal pain, belching, bloating, change in bowel habits, constipation, cramping, diarrhea, heartburn, excessive flatus, incontinent of stools, loose stools, nausea/dyspepsia and vomiting; No change in stool character, coffee ground emesis, difficulty swallowing, feeling full early, Vomiting blood/hematemesis, Blood in stool, Black,tarry stools or pain with swallowing Genitourinary-Female: No difficulty urinating Musc Musculoskeletal: Positive for leg pain with exertion Skin Skin: Positive for dry skin; No yellowing of the eye or itchy eyes Neuro Neurology: No abnormal hearing Psych Psychiatric: No anxiety and No depression Endo Endocrine: Positive for change in body appearance, fatigue and weight change; No cold intolerance or heat intolerance Aller/Imm Allergy/Immunologic: Positive for food intolerance (ice cream, but can drink whole milk); No itchy eyes [place]/Lymp Hematologic/Lymphatic: No easy bleeding or easy bruising Exam Const G (more content not included)... Normal [facility] Comprehensive Metabolic Prof ndharitha 06-09-2024 Albumin [Mass/Vol] 4.5 g/dL Normal 3.4-4.8 [facility] Comment on above: Performed By: #### L 100.0100, L501.9520, L506.0400, L500.4050 #### [facility] [address] [place], [address] Albumin/Globulin [Mass ratio] 2.0 {ratio} Normal 0.9-2.4 [facility] Comment on above: Performed By: #### L 100.0100, L501.9520, L506.0400, L500.4050 #### [facility] [address] [place], [address] ALK PHOS 118 U/L High 35-104 [facility] Comment on above: Performed By: #### L 100.0100, L501.9520, L506.0400, L500.4050 #### [facility] [address] [place], [address] ALT [Catalytic activity/Vol] 13 U/L Normal <=34 [facility] Comment on above: Performed By: #### L 100.0100, L501.9520, L506.0400, L500.4050 #### [facility] [address] [place], [address] AST [Catalytic activity/Vol] 17 U/L Normal <=31 [facility] Comment on above: Performed By: #### L 100.0100, L501.9520, L506.0400, L500.4050 #### [facility] [address] [place], [address] Bilirubin [Mass/Vol] 0.34 mg/dL Normal 0.00-1.[address] [facility] Comment on above: Performed By: #### L 100.0100, L501.9520, L506.0400, L500.4050 #### [facility] [address] [place], [address] BUN/CRE 14.4 RATIO Normal 10-20 [facility] Comment on above: Performed By: #### L 100.0100, L501.9520, L506.0400, L500.4050 #### [facility] [address] [place], [address] Calcium [Mass/Vol] 9.3 mg/dL Normal 7.6-11.0 [facility] Comment on above: Performed By: #### L 100.0100, L501.9520, L506.0400, L500.4050 #### [facility] [address] [place], [address] Chloride [Moles/Vol] 101 mmol/L Normal 98-[address] [facility] Comment on above: Performed By: #### L 100.0100, L501.9520, L506.0400, L500.4050 #### [facility] [address] [place], [address] CO2 [Moles/Vol] 22.4 mmol/L Normal 21.0-32.0 [facility] Comment on above: Performed By: #### L 100.0100, L501.9520, L506.0400, L500.4050 #### [facility] [address] [place], [address] Creatinine [Mass/Vol] 0.80 mg/dL Normal 0.70-1.20 [facility] Comment on above: Performed By: #### L 100.0100, L501.9520, L506.0400, L500.4050 #### [facility] [address] [place], [address] GAP 13 Normal 5-15 [facility] Comment on above: Performed By: #### L 100.0100, L501.9520, L506.0400, L500.4050 #### [facility] [address] [place], [address] GFR/1.73 sq M.predicted among non-blacks MDRD (S/P/Bld) [Vol rate/Area] 82 mL/min/{1.73_m2} Normal >60 [facility] Comment on above: Result Comment: mL/m in/1.73m2 CKD-EPI Creatinine Equation (2020) Performed By: #### L 100.0100, L501.9520, L506.0400, L500.4050 #### [facility] [address] [place], [address] Globulin (S) [Mass/Vol] 2.2 g/dL Normal 2.2-4.2 [facility] Comment on above: Performed By: #### L 100.0100, L501.9520, L506.0400, L500.4050 #### [facility] [address] [place], [address] Glucose [Mass/Vol] 86 mg/dL Normal 70-99 [facility] Comment on above: Performed By: #### L 100.0100, L501.9520, L506.0400, L500.4050 #### [facility] [address] [place], [address] Potassium [Moles/Vol] 4.1 mmol/L Normal 3.3-5.1 [facility] Comment on above: Performed By: #### L 100.0100, L501.9520, L506.0400, L500.4050 #### [facility] [address] [place], [address] Sodium [Moles/Vol] 136 mmol/L Normal 133-145 [facility] Comment on above: Performed By: #### L 100.0100, L501.9520, L506.0400, L500.4050 #### [facility] [address] [place], [address] T PROT 6.7 g/dL Normal 5.9-8.4 [facility] Comment on above: Performed By: #### L 100.0100, L501.9520, L506.0400, L500.4050 #### [facility] [address] [place], [address] Urea nitrogen [Mass/Vol] 12 mg/dL Normal 4-19 [facility] Comment on above: Performed By: #### L 100.0100, L501.9520, L506.0400, L500.4050 #### [facility] [address] [place], [address] T4 Free Directon 06-09-2024 T4 FREE DIRECT 1.20 ng/dL Normal 0.76-1.46 [facility] Comment on above: Performed By: #### L 100.0100, L501.9520, L506.0400, L500.4050 #### [facility] [address] [place], [address] Thyroid Stim Hormone (TSH)on 06-09-2024 TSH 4.520 uIU/mL High 0.300-4.200 [facility] Comment on above: Performed By: #### L 100.0100, L501.9520, L506.0400, L500.4050 #### [facility] [address] [place], [address] Absolute neutrophil countOrd ered By: Vu Ramon on 06-08-2024 Neutrophils (Bld) [#/Vol] 2.7 10*3/uL 2.0-7.7 [facility] Anion gap in Serum or Plasma Ordered By: Vu Ramon on 06-08-2024 Anion gap [Moles/Vol] 13 mmol/L 5-15 [facility] BUN/creatinine ratioOrdered By: Vu Ramon on 06-08-2024 Urea nitrogen/Creatinine [Mass ratio] 14.4 mg/mg 10-20 [facility] Basophil percentageOrdered B y: Vu Ramon on 06-08-2024 Basophils/100 WBC (Bld) 0.9 % 0-1 [facility] Bilirubin, totalOrdered By: Vu Ramon on 06-08-2024 Bilirubin [Mass/Vol] 0.34 mg/dL 0.00-1.[address] [facility] CBC W/Diff, Automatedon 05-16 Absolute Lymph 1.78 X10 3/uL Normal 0.83-4.51 [facility] Comment on above: Performed By: #### L 100.0100, L501.9520, L506.0400, L500.4050 #### [facility] [address] [place], [address] Absolute Neut 2.7 X10 3/uL Normal 2.0-7.7 [facility] Comment on above: Performed By: #### L 100.0100, L501.9520, L506.0400, L500.4050 #### [facility] [address] [place], [address] Basophils/100 WBC (Bld) 0.9 % Normal 0-1 [facility] Comment on above: Performed By: #### L 100.0100, L501.9520, L506.0400, L500.4050 #### [facility] [address] [place], [address] Eosinophils/100 WBC (Bld) 3.0 % Normal 0-5 [facility] Comment on above: Performed By: #### L 100.0100, L501.9520, L506.0400, L500.4050 #### [facility] [address] [place], [address] Erythrocyte distribution width (RBC) [Ratio] 12.7 % Normal 11.6-14.6 [facility] Comment on above: Performed By: #### L 100.0100, L501.9520, L506.0400, L500.4050 #### [facility] [address] [place], [address] Hematocrit (Bld) [Volume fraction] 40.8 % Normal 37-47 [facility] Comment on above: Performed By: #### L 100.0100, L501.9520, L506.0400, L500.4050 #### [facility] [address] [place], [address] Hemoglobin (Bld) [Mass/Vol] 13.6 g/dL Normal 12.0-15.0 [facility] Comment on above: Performed By: #### L 100.0100, L501.9520, L506.0400, L500.4050 #### [facility] [address] [place], [address] IG% 0.200 Normal 0.0-0.9 [facility] Comment on above: Result Comment: IG% - Immature Granulocytes (promyelocytes, myelocytes and metamyelocytes) > 1% indicates that a LEFT SHIFT is Present. Performed By: #### L 100.0100, L501.9520, L506.0400, L500.4050 #### [facility] [address] [place], [address] Lymphocytes/100 WBC (Bld) 33.6 % Normal 19-41 [facility] Comment on above: Performed By: #### L 100.0100, L501.9520, L506.0400, L500.4050 #### [facility] [address] [place], [address] MCH (RBC) [Entitic mass] 28.5 pg Normal 27.0-32.0 [facility] Comment on above: Performed By: #### L 100.0100, L501.9520, L506.0400, L500.4050 #### [facility] [address] [place], [address] MCHC (RBC) [Mass/Vol] 33.3 g/dL Normal 32-36 [facility] Comment on above: Performed By: #### L 100.0100, L501.9520, L506.0400, L500.4050 #### [facility] [address] [place], [address] MCV (RBC) [Entitic vol] 85.4 fL Normal 81-99 [facility] Comment on above: Performed By: #### L 100.0100, L501.9520, L506.0400, L500.4050 #### [facility] [address] [place], [address] Monocytes/100 WBC (Bld) 11.9 % High 0-10 [facility] Comment on above: Performed By: #### L 100.0100, L501.9520, L506.0400, L500.4050 #### [facility] [address] [place], [address] Neutrophils/100 WBC (Bld) 50.4 % Normal 47-70 [facility] Comment on above: Performed By: #### L 100.0100, L501.9520, L506.0400, L500.4050 #### [facility] [address] [place], [address] Nucleated RBC (Bld) [#/Vol] 0 10*3/uL Normal 0-5 [facility] Comment on above: Performed By: #### L 100.0100, L501.9520, L506.0400, L500.4050 #### [facility] [address] [place], [address] Platelet mean volume (Bld) [Entitic vol] 9.2 fL Normal 6.2-12.0 [facility] Comment on above: Performed By: #### L 100.0100, L501.9520, L506.0400, L500.4050 #### [facility] [address] [place], [address] Platelets (Bld) [#/Vol] 264 10*3/uL Normal 150-450 [facility] Comment on above: Performed By: #### L 100.0100, L501.9520, L506.0400, L500.4050 #### [facility] [address] [place], [address] RBC (Bld) [#/Vol] 4.78 10*6/uL Normal 4.2-5.[address] [facility] Comment on above: Performed By: #### L 100.0100, L501.9520, L506.0400, L500.4050 #### [facility] [address] [place], [address] RDW SD 39.5 fl Normal 35.1-43.9 [facility] Comment on above: Performed By: #### L 100.0100, L501.9520, L506.0400, L500.4050 #### [facility] [address] [place], [address] WBC (Bld) [#/Vol] 5.3 10*3/uL Normal 4.4-11.0 [facility] Comment on above: Performed By: #### L 100.0100, L501.9520, L506.0400, L500.4050 #### [facility] [address] [place], [address] Carbon dioxide, total [Moles /volume] in Central venous bloodOrdered By: Vu Ramon on 06-08-2024 CO2 [Moles/Vol] 22.4 mmol/L 21.0-32.0 [facility] Chloride assayOrdered By: Do ira Ramon on 06-08-2024 Chloride [Moles/Vol] 101 mmol/L 98-[address] [facility] Eosinophil percentageOrdered By: Vu Ramon on 06-08-2024 Eosinophils/100 WBC (Bld) 3.0 % 0-5 [facility] Erythrocyte distribution wid th ratioOrdered By: Vu Ramon on 06-08-2024 Erythrocyte distribution width (RBC) [Ratio] 12.7 % 11.6-14.6 [facility] Erythrocyte distribution wid th standard deviationOrdered By: Vu Ramon on 06-08-2024 Erythrocyte distribution width (RBC) [Entitic vol] 39.5 fL 35.1-43.9 [facility] GFR/1.73 sq M.predicted сергей g non-blacks MDRD (S/P/Bld) [Vol rate/Area]Ordered By: Vu Ramon on 06-08-2024 Estimated GFR (MDRD) Non-Af Amer 82 >60 [facility] Comment on above: mL/min/1.73m2 CKD-EP I Creatinine Equation (2020) Hematocrit Auto (Bld) [Volum e fraction]Ordered By: Vu Ramon on 06-08-2024 Hematocrit (Bld) [Volume fraction] 40.8 % 37-47 [facility] Hemoglobin measurementOrdere d By: Vu Ramon on 06-08-2024 Hemoglobin (Bld) [Mass/Vol] 13.6 g/dL 12.0-15.0 [facility] Immature granulocytes/100 WB C Auto (Bld)Ordered By: Vu Ramon on 06-08-2024 Immature granulocytes/100 WBC (Bld) 0.200 % 0.0-0.9 [facility] Comment on above: IG% - Immature Granu locytes (promyelocytes, myelocytes and metamyelocytes) > 1% indicates that a LEFT SHIFT is Present. Internal Medicine Office Vis khloe 06-08-2024 Internal Medicine Office Visit [facility] [address] [place] [address] OFFICE VISIT Date of Service: 06/08/24 MR#: [id number] Acct: [id number] Name: PINA ORTEGA Rep #: [id number] : 1960 Provider: Dr. Vu gasca, DO Age/Sex: 64/F Location: [facility] Status: Signed Intake Vital Signs 01/21/24 11:20 06/08/24 15:35 Height 5 ft 7 in 5 ft 7 in Weight: 184 lb BMI 28.8 BP 110/72 Blood Pressure Location Lt brachial Position Sitting Respiration 16 Pulse 70 Pulse Source Monitor Temp 97.2 F L Temp Source Temporal Pulse Oximetry (%) 97 Oxygen Delivery Method room air Intake Visit Reasons: not feeling normal, dizzy /prolia Chief Complaint: not feeling well Shaft Repairer Required: No Accompanied by: Self Is patient in pain?: No Allergies No Known Allergies Allergy (Verified 06/08/24 15:24) Medications ???Medication ???Instructions ???Recorded ???Confirmed ???Type albuterol sulfate 90 mcg/actuation 2 puff inhalation PRN PRN Sob / Or 09/07/18 06/08/24 History aerosol inhaler Wheezing magnesium 200 mg tablet 200 mg PO DAILY 07/29/23 06/08/24 History mecobalamin (vitamin B12) 1,000 1,000 mcg PO DAILY 07/29/23 History mcg lozenges vitamin D3 125 mcg (5,000 cap PO 07/29/23 06/08/24 History unit)-vitamin K2 180 mcg capsule (K2-D3 Max) Handicap placard #1 ea 10/29/23 06/08/24 Rx tramadol 50 mg tablet 50 mg PO Q4 PRN pain #90 tabs 11/1506/08/24 Rx denosumab 60 mg/mL subcutaneous 60 mg subcut ONCE #1 mL 03/22/24 0 06/08/24 Rx syringe (Prolia) fluticasone furoate 200 1 inh inhalation DAILY copd #60 ea 04/13/24 06/08/24 Rx mcg-vilanterol 25 mcg/dose inhalation powder (Breo Ellipta) rosuvastatin 5 mg tablet 5 mg PO DAILY cholesterol #90 tabs 04/13/24 06/08/24 Rx tiotropium bromide 2.5 2 puff inhalation QDAY #4 grams 06/08/24 Rx mcg/actuation mist for inhalation (Spiriva Respimat) amitriptyline 50 mg tablet 50 mg PO QHS #90 tabs 04/20/24 Rx paroxetine HCl 40 mg tablet 40 mg PO QAM #90 tabs 04/20/24 Rx levothyroxine 25 mcg tablet 25 mcg PO QDAY #90 tabs 04/28/24 0 3/25/25 Rx Have you fallen in the past year?: No Nurse's Note: States that in March she stoves her L middle finger and her hand tightened and a buldge that is present and does not go away states that she has tightness and it is hard to move. Wants to know what labs she is due for, states she is fasting today. States she is still having constipation and linzess made her have diarrhea so she dc'd it. States she last had a colonscopy around 5 years ago and is due , as she had polyps would like referral to Dr. Santos. [facility] History Abnormal EKG Arrhythmia Basal cell carcinoma Irritable bowel syndrome with constipation Thyroid cancer Fibroids Skin cancer Anemia Hypothyroidism Rheumatoid arthritis Osteoporosis GERD (gastroesophageal reflux disease) CPAP (continuous positive airway pressure) dependence COPD (chronic obstructive pulmonary disease) Migraines Hyperlipidemia Adult BMI 30.0-30.9 kg/sq m Obstructive sleep apnea Back pain Thyroid disease Shoulder pain Compression fracture of L5 lumbar vertebra Anxiety and depression Osteoarthritis Vitamin D deficiency Surgical History History of tonsillectomy History of thyroidectomy H/O: hysterectomy Family History Mother Heart disease Social History adopted: No household members: family number of children: 3 current occupational status: disabled pets and animals: Yes sexually active: No Smoking Status: Former smoker quit date: 03/17/14 pack-years: 22 Tobacco: How many years used: 22 alcohol intake: never substance use type: does not use caffeine: Yes (2-3) Type: coffee Number of servings: 3 frequency: does not exercise do you feel safe at home: Yes HPI HPI Chief Complaint: not feeling well Details: PINA ORTEGA, is a 64 F who presents to the office today for a visit and that she is just not feeling up to par. She thinks maybe her thyroid function is off as she is fatigued and she has gained significant amount of weight. She also is concerned because she has not had a colonoscopy for 5 years and had adenomatous polyps removed 5 years ago. She also injured her left middle finger and has a lump in the palm of her hand that is sore and tender. She wants to be on some medicine to assist in weight loss but she is not sure what that medicine would be. ROS Const Constitutional: No body ach (more content not included)... Normal [facility] - Chemistry and C hemistry - challengeOrdered By: Vu Ramon on 06-08-2024 AST [Catalytic activity/Vol] 17 U/L <32 [facility] Lymphocytes Auto (Unsp spec) [#/Vol]Ordered By: Vu Ramon on 06-08-2024 Lymphocytes (Bld) [#/Vol] 1.78 10*3/uL 0.83-4.51 [facility] Lymphocytes/100 WBC Auto (Un sp spec)Ordered By: Vu aRmon on 06-08-2024 Lymphocytes/100 WBC (Bld) 33.6 % 19-41 [facility] MCV (mean corpuscular volume ) determinationOrdered By: Vu Ramon on 06-08-2024 MCV (RBC) [Entitic vol] 85.4 fL 81-99 [facility] Mean corpuscular hemoglobin (MCH) determinationOrdered By: Vu Ramon on 06-08-2024 MCH (RBC) [Entitic mass] 28.5 pg 27.0-32.0 [facility] Mean corpuscular hemoglobin concentration (MCHC) determinationOrdered By: Vu Ramon on 06-08-2024 MCHC (RBC) [Mass/Vol] 33.3 g/dL 32-36 [facility] Mean platelet volume determi nationOrdered By: Vu Ramon on 06-08-2024 Platelet mean volume (Bld) [Entitic vol] 9.2 fL 6.2-12.0 [facility] Monocyte percentageOrdered B y: Vu Ramon on 06-08-2024 Monocytes/100 WBC (Bld) 11.9 % High 0-10 [facility] Neutrophil percentageOrdered By: Vu Ramon on 06-08-2024 Neutrophils/100 WBC (Bld) 50.4 % 47-70 [facility] Nucleated red blood cell per centageOrdered By: Vu Ramon on 06-08-2024 Nucleated RBC/100 WBC (Bld) [Ratio] 0 % 0-5 [facility] Platelet countOrdered By: Do ira Ramon on 06-08-2024 Platelets (Bld) [#/Vol] 264 10*3/uL 150-450 [facility] Potassium (Unsp spec) [Mass/ Vol]Ordered By: Vu Ramon on 06-08-2024 Potassium [Moles/Vol] 4.1 mmol/L 3.3-5.1 [facility] RBC Auto (Bld) [#/Vol]Ordere d By: Vu Ramon on 06-08-2024 RBC (Bld) [#/Vol] 4.78 10*6/uL 4.2-5.[address] [facility] Serum creatinine measurement (mass/volume)Ordered By: Vu Ramon on 06-08-2024 Creatinine [Mass/Vol] 0.80 mg/dL 0.70-1.20 [facility] Serum globulin measurementOr dered By: Vu Ramon on 06-08-2024 Globulin (S) [Mass/Vol] 2.2 g/dL 2.2-4.2 [facility] Serum glucose measurement (m ass/volume)Ordered By: Vu Ramon on 06-08-2024 Glucose [Mass/Vol] 86 mg/dL 70-99 [facility] Serum or plasma alanine dennis otransferase (ALT) measurementOrdered By: Vu Ramon on 06-08-2024 ALT [Catalytic activity/Vol] 13 U/L <35 [facility] Serum or plasma albumin bhupendra urement (mass/volume)Ordered By: Vu Ramon on 06-08-2024 Albumin [Mass/Vol] 4.5 g/dL 3.4-4.8 [facility] Serum or plasma albumin/glob ulin mass ratioOrdered By: Vu Ramon 06-08-2024 Albumin/Globulin [Mass ratio] 2.0 {ratio} 0.9-2.4 [facility] Serum or plasma alkaline hector sphatase measurementOrdered By: Vu Ramon on 06-08-2024 ALP [Catalytic activity/Vol] 118 U/L High 35-104 [facility] Serum or plasma calcium bhupendra urement (mass/volume)Ordered By: Vu Ramon on 06-08-2024 Calcium [Mass/Vol] 9.3 mg/dL 7.6-11.0 [facility] Serum or plasma urea nitroge n measurement (mass/volume)Ordered By: Vu Ramon on 06-08-2024 Urea nitrogen [Mass/Vol] 12 mg/dL 4-19 [facility] Sodium levelOrdered By: Gordon Ramon on 06-08-2024 Sodium [Moles/Vol] 136 mmol/L 133-145 [facility] T4 freeOrdered By: Vu chapman on 06-08-2024 Free T4 [Mass/Vol] 1.20 ng/dL 0.76-1.46 [facility] TSH DL <= 0.005 mIU/L QnOrde red By: Vu Ramon on 06-08-2024 Thyroid Stimulating Hormone (TSH) 4.520 uIU/mL High 0.300-4.200 [facility] Total proteinOrdered By: Lucero Ramon on 06-08-2024 Protein [Mass/Vol] 6.7 g/dL 5.9-8.4 [facility] White blood cell (WBC) count Ordered By: Vu Ramon on 06-08-2024 WBC (Bld) [#/Vol] 5.3 10*3/uL 4.4-11.0 [facility] Stress Test Echo w/o Contras ton 02-02-2024 Stress Test Echo w/o Contrast [facility] [address] [place] [address] Stress Test Echo w/o Contrast MR#: [id number] Acct: [id number] Name: PINA ORTEGA Rep #: [id number] : 1960 63 From: Pierre Jones MD Primary Care: Dr. Vu Ramon, DO Status: REG CLI Ordering Dr: Pierre Jones MD Sex: F C Reason For Study: Chest Pain Stress Results Protocol: Dobutamine Stress Echo Maximum Predicted HR: 157 bpm Target HR: 133 bpm % Maximum Predicted HR: 83 % DurationHeart Rate Stage (mm:ss) (bpm) BP Comment Baseline 92 123/80No Chest Pain DSE 10 MCG 3:39 113 94/52No Chest Pain DSE 20 MCG 3:00 120 84/48No Chest Pain DSE 30 MCG 4:31 130 77/48No Chest Pain Recovery 98 104/59No Chest Pain Stress Duration: 11:10 mm:ss Maximum Stress HR: 130 bpm METS: 1 Baseline Echocardiogram Findings Stress Echo Wall motion Data Resting WM Intermediate WM Stress WM ECHO/Stress Test Echo w/o Contrast Interpretation Summary Dobutamine stress echocardiogram. Resting EKG demonstrates normal sinus rhythm with a rate of 90 bpm resting blood pressure is 123/80 mmHg. Dobutamine was infused starting at 10 mcg/kg/min increasing in 10 mg aliquots to a peak of 30mcg/kg/min. Continuous EKG monitoring was performed. The patient maintained sinus rhythm throughout the recording. The peak heart rate was 130 bpm which was 82% of max impacted heart rate the maximum workload was 1 metabolic equivalent. The blood pressure which started at 123/80 mmHg continued to fall with dobutamine infusion to a archana of 77/48 mmHg at which point the test was terminated. The recovery postinfusion blood pressure was 104/59 mmHg with no symptoms. There were no EKG changes to suggest ischemia and no arrhythmias noted. Stress echocardiogram. The resting echocardiographic images demonstrated preserved left ventricular systolic function estimated at 60% at a low dose there was enhanced contractility with reduction of low ventricular cavity size and at peak dose the ejection fraction was noted to be approximately 70%. No obvious chamber obliteration was noted and there were no wall motion abnormalities to suggest ischemia. Conclusion: Dobutamine stress echocardiogram with no EKG or echocardiographic evidence of ischemia. Ordering Physician: Pierre Jones Referring Physician: Pierre Jones Performed By: Leslie Amezquita RDCS 02/02/24 1758 Date Pierre Jones MD CC: Dr. Pierre Jones MD; Dr. Vu Ramon, DO Date Dictated: 02/02/24 1400 Date Transcribed: 02/02/24 175 Strategic Planner: Signed Normal [facility] 12 Lead EKG performed by [facility] on 01-21-2024 12 Lead EKG performed by [facility] [address] [place] [address] 12 Lead EKG performed by [facility] 01/21/24 1120 MR#: [id number] Acct: [id number] Name: PINA ORTEGA Rep #: [id number] : 1960 63 From: Pierre Jones MD Attending Dr: Dr. Pierre Jones MD Status: DEP A MB Ordering Dr: Pierre Jones MD Date: 01/21/24 Location: [facility] Sex: F C Admitted: BMS/12 Lead EKG performed by [facility] ECG Report Interpretation ----Sinus Rhythm - frequent PAC s # PACs = 5.-Anteroseptal infarct -age undetermined. -Nonspecific ST depression -Nondiagnostic. ABNORMAL Electronically signed on 01/29/2024 at 08:05 by Pierre Joneswood Software Version [id number] 01/29/24 0809 Date Pierre Jones MD CC: Dr. Vu Ramon, DO Date Dictated: 01/21/24 1120 Date Transcribed: 01/21/24 112 Strategic Planner: [place] Signed Normal [facility] Cardiology Visit Reporton Cardiology Visit Report [facility] [address] [place] [address] OFFICE VISIT Date of Service: 01/21/24 MR#: [id number] Acct: [id number] Name: PINA ORTEGA Rep #: [id number] : 1960 Provider: Dr. Pierre Jones MD Age/Sex: 63/F Location: [facility] Status: Signed HPI HPI History of Present Illness Details: 63-year-old lady with no previous documented coronary history who presents with occasional shortness of breath as well as palpitations. She denies any chest pain per se she says that she saw the occupational health specialist who suggested that it may be a cardiac problem. If you remember approximately 3 years ago she was seen for shortness of breath and underwent an echocardiographic evaluation with demonstrated ejection fraction of 55% with stage I diastolic dysfunction, she underwent a pharmacologic stress test which demonstrated no evidence of ischemia. She did not follow-up again with us for a while and now presents with a similar problem. She denies any dyspnea at rest and that she feels her heart beating irregularly and she has not had any clayton syncopal episodes. Her lipid profile in July demonstrated total cholesterol 198 HDL of 60 LDL 118. Her physical exam here appears unremarkable her electrocardiogram demonstrates sinus rhythm with a rate of 92 bpm and premature ventricular complexes noted. Intake Vital Signs 10/29/23 13:05 01/21/24 11:20 Height 5 ft 7 in 5 ft 7 in Weight: 178 lb 180 lb BMI 27.8 28.1 BP 120/84 H 109/79 Blood Pressure Location Lt brachial Lt brachial Position Sitting Sitting Respiration 16 16 Pulse 51 L 55 L Pulse Source Monitor Monitor Temp 98.0 F Pulse Oximetry (%) 99 Oxygen Delivery Method room air Intake Visit Reasons: ABN EKG (IMANI) Shaft Repairer Required: No Accompanied by: Self Is patient in pain?: No Allergies No Known Allergies Allergy (Verified 01/21/24 11:24) Medications ???Medication ???Instructions ???Recorded ???Confirmed ???Type albuterol sulfate 90 mcg/actuation 2 puff inhalation PRN PRN Sob /Or 09/07/18 01/21/24 History aerosol inhaler Wheezing fluticasone furoate 200 1 inh inhalation DAILY copd 08/22/20 01/21/24 History mcg-vilanterol 25 mcg/dose inhalation powder (Breo Ellipta) rosuvastatin 5 mg tablet 5 mg PO DAILY cholesterol 08/30/20 01/21/24 History magnesium 200 mg tablet 200 mg PO DAILY 07/29/23 01/21/24 History mecobalamin (vitamin B12) 1,000 1,000 mcg PO DAILY 07/29/23 01/21/24 History mcg lozenges paroxetine HCl 40 mg tablet 40 mg PO QAM 07/29/23 01/21/24 History tiotropium bromide 2.5 2 puff inhalation QDAY 07/29/23 01/21/24 History mcg/actuation mist for inhalation (Spiriva Respimat) vitamin D3 125 mcg (5,000 cap PO 07/29/23 01/21/24 History unit)-vitamin K2 180 mcg capsule (K2-D3 Max) denosumab 60 mg/mL subcutaneous 60 mg subcut [id number] #1 mL 08/20/23 01/21/24 Rx syringe (Prolia) Handicap placard #1 ea 10/29/23 10/29/23 Rx tramadol 50 mg tablet 50 mg PO Q4 PRN pain #90 tabs 12/02/23 01/21/24 Rx amitriptyline 50 mg tablet 50 mg PO QHS #90 tabs 12/16/23 01/21/24 Rx levothyroxine 25 mcg tablet 25 mcg PO QDAY #90 tabs 12/16/23 01/21/24 Rx linaclotide 290 mcg capsule 290 mcg PO DAILY #90 caps 12/16/23 01/21/24 Rx (Linzess) Have you fallen in the past year?: Yes [facility] Medical History (Updated 01/21/24 @ 11:[address] Pierre Jones MD) Abnormal EKG Arrhythmia Basal cell carcinoma Irritable bowel syndrome with constipation Thyroid cancer Fibroids Skin cancer Anemia Hypothyroidism Rheumatoid arthritis Osteoporosis GERD (gastroesophageal reflux disease) CPAP (continuous positive airway pressure) dependence COPD (chronic obstructive pulmonary disease) Migraines Hyperlipidemia Adult BMI 30.0-30.9 kg/sq m Obstructive sleep apnea Back pain Thyroid disease Shoulder pain Compression fracture of L5 lumbar vertebra Anxiety and depression Osteoarthritis Vitamin D deficiency Surgical History History of tonsillectomy History of thyroidectomy H/O: hysterectomy Family History Mother Heart disease Social History adopted: No household members: family number of children: 3 current occupational status: disabled pets and animals: Yes sexually active: No Smoking Status: Former smoker quit date: 03/17/14 pack-years: 22 Tobacco: How many years used: 22 alcohol intake: never substance use type: does not use caffeine: Yes (2-3) Type: coffee Number of servings: 3 frequency: does not exercise do you feel safe at home: Yes ROS Const Const: Positive for fatigue; Negative for weakness, headache(s), d (more content not included)... Normal [facility] Office Visit Reporton 2023 Office Visit Report [facility] [address] [place] [address] OFFICE VISIT Date of Service: 12/18/23 MR#: [id number] Acct: [id number] Patient: PINA ORTEGA Rep #: [id number] : 1960 Provider: MONICA NURSE Age/Sex: 63/F Location: [facility] Status: Signed Intake Vital Signs 10/29/23 13:05 Height 5 ft 7 in Weight: 178 lb BMI 27.8 BP 120/84 H Blood Pressure Location Lt brachial Position Sitting Respiration 16 Pulse 51 L Pulse Source Monitor Temp 98.0 F Temp Source Temporal Pulse Oximetry (%) 99 Oxygen Delivery Method room air Intake Visit Reasons: ekg Chief Complaint: ekg Allergies No Known Allergies Allergy (Verified 10/29/23 13:02) Nurse's Note: pt presents for [place] ekg. per pt Dr. osorio was doing exam and noted irregular heart rate. today pt advised No feeling of my heart racing pt states she used to follow with Dr. Jones, advised she make f/u with them for the concern. EKG normal today. Yoanna ALVARENGA notified and viewed EKG advised the same, cardiology follow up. pt given Dr. Jones number states she would call soon. 12/19/23 5438 Date Yoanna Mohamud Signature: Date (if applicable) CC: Normal [facility] TABBY Comprehensive Panelon TABBY TABLE Comment Normal . [facility] Comment on above: Result Comment: Auto antibody Disease Association Condition Frequency --------- Antinuclear Antibody, SLE, mixed connective Direct (TABBY-D) tissue diseases --------- dsDNA SLE 40 - 60% --------- Chromatin Drug induced SLE 90% SLE 48 - 97% --------- SSA (Ro) SLE 25 - 35% Sjogren's Syndrome 40 - 70% Lupus 100% --------- SSB (La) SLE 10% Sjogren's Syndrome 30% --------- Sm (anti-Brown) SLE 15 - 30% --------- MULTIPLE NEEDLE STITCHER Mixed Connective Tissue Disease 95% (U1 nRNP, SLE 30 - 50% anti-ribonucleoprotein) Polymyositis and/or Dermatomyositis 20% --------- Scl-70 (antiDNA Scleroderma (diffuse) 20 - 35% topoisomerase) Crest 13% --------- Ana-1 Polymyositis and/or Dermatomyositis 20 - 40% --------- Centromere B Scleroderma - Crest variant 80% Performed at: [address] [id number] [employer] Boat: Suresh Blanca PhD, Phone: [phone] Performed By: #### Jen 101.9900, K3116.7192 #### [facility] [address] [place], [address] ANTI-CENT B AB <0.2 Normal 0.0-0.9 [facility] Comment on above: Performed By: #### L 101.9900, L3664.1456 #### [facility] [address] [place], [address] ANTI-DNA (DS)AB 1 IU/mL Normal 0-9 [facility] Comment on above: Result Comment: Nega tive <5 Equivocal 5 - 9 Positive >9 Performed By: #### L 101.9900, L3100.5440 #### [facility] [address] [place], [address] ANTI-ANA-1 <0.2 Normal 0.0-0.9 [facility] Comment on above: Performed By: #### L 101.9900, L3100.5440 #### [facility] [address] [place], [address] ANTI-SS-A < 0.2 Normal 0.0-0.9 [facility] Comment on above: Performed By: #### L 101.9900, L3100.5440 #### [facility] [address] [place], [address] ANTI-SS-B < 0.2 Normal 0.0-0.9 [facility] Comment on above: Performed By: #### L 101.9900, L3100.5440 #### [facility] [address] [place], [address] ANTICHROMATIN <0.2 Normal 0.0-0.9 [facility] Comment on above: Performed By: #### L 101.9900, L3100.5440 #### [facility] [address] [place], [address] ANTISCLERODERM <0.2 Normal 0.0-0.9 [facility] Comment on above: Performed By: #### L 101.9900, L3100.5440 #### [facility] [address] [place], [address] MULTIPLE NEEDLE STITCHER Ab <0.2 Normal 0.0-0.9 [facility] Comment on above: Performed By: #### L 101.9900, L3100.5440 #### [facility] [address] [place], [address] BROWN Ab <0.2 Normal 0.0-0.9 [facility] Comment on above: Performed By: #### L 101.9900, L3100.5440 #### [facility] [address] [place], [address] Erythrocyte Sed Rateon 10-28 SED RATE 2 mm/hr Normal 0-30 [facility] Comment on above: Performed By: #### L 101.9900, L3100.5440 #### [facility] [address] [place], [address] Internal Medicine Office Vis iton 10-29-2023 Internal Medicine Office Visit [facility] [address] [place], [place] [address] OFFICE VISIT Date of Service: 10/29/23 MR#: [id number] Acct: [id number] Name: PINA ORTEGA Rep #: [id number] : 1960 Provider: Dr. Vu gasca, DO Age/Sex: 63/F Location: [facility] Status: Signed Intake Vital Signs 07/29/23 15:03 10/29/23 13:05 Height 5 ft 7 in 5 ft 7 in Weight: 178 lb BMI 27.8 BP 120/84 H Blood Pressure Location Lt brachial Position Sitting Respiration 16 Pulse 51 L Pulse Source Monitor Temp 98.0 F Temp Source Temporal Pulse Oximetry (%) 99 Oxygen Delivery Method room air Intake Visit Reasons: 3 M FU Chief Complaint: 3m f.u Shaft Repairer Required: No Accompanied by: Self Is patient in pain?: No Allergies No Known Allergies Allergy (Verified 10/29/23 13:02) Medications ???Medication ???Instructions ???Recorded ???Confirmed ???Type albuterol sulfate 90 mcg/actuation 2 puff inhalation PRN PRN Sob /Or 09/07/18 10/29/23 History aerosol inhaler Wheezing amitriptyline 25 mg tablet 50 mg (2 x 25 mg) PO QHS #60 tabs 09/09/18 10/29/23 Rx fluticasone furoate 200 1 inh inhalation DAILY copd 08/22/20 10/29/23 History mcg-vilanterol 25 mcg/dose inhalation powder (Breo Ellipta) paroxetine HCl 30 mg tablet (Paxil) 30 mg PO DAILY depression 08/22/20 10/29/23 History denosumab 60 mg/mL subcutaneous 60 mg subcut [id number] bones 08/30/20 10/29/23 History syringe rosuvastatin 5 mg tablet 5 mg PO DAILY cholesterol 08/30/20 10/29/23 History flaxseed oil 1,000 mg capsule 1,000 mg PO DAILY 07/29/23 10/29/23 History levothyroxine 25 mcg tablet 25 mcg PO QDAY 07/29/23 10/29/23 History magnesium 200 mg tablet 200 mg PO DAILY 07/29/23 10/29/23 History mecobalamin (vitamin B12) 1,000 1,000 mcg PO DAILY 07/29/23 10/29/23 History mcg lozenges paroxetine HCl 40 mg tablet 40 mg PO QAM 07/29/23 10/29/23 History tiotropium bromide 2.5 2 puff inhalation QDAY 07/29/23 10/29/23 History mcg/actuation mist for inhalation (Spiriva Respimat) vitamin D3 125 mcg (5,000 cap PO 07/29/23 10/29/23 History unit)-vitamin K2 180 mcg capsule (K2-D3 Max) linaclotide 290 mcg capsule 290 mcg PO DAILY #90 caps 07/31/23 10/29/23 Rx (Linzess) denosumab 60 mg/mL subcutaneous 60 mg subcut [id number] #1 mL 08/20/23 10/29/23 Rx syringe (Prolia) amitriptyline 50 mg tablet 50 mg PO QHS #90 tabs 10/07/23 10/29/23 Rx tramadol 50 mg tablet 50 mg PO Q4 PRN pain #90 tabs 10/07/23 10/29/23 Rx Handicap placard #1 ea 10/29/23 10/29/23 Rx PFSH Medical History Fibroids Skin cancer Anemia Anxiety Depression Hypothyroidism Rheumatoid arthritis Osteoporosis GERD (gastroesophageal reflux disease) Former smoker CPAP (continuous positive airway pressure) dependence Sleep apnea COPD (chronic obstructive pulmonary disease) Migraines Hyperlipidemia Adult BMI 30.0-30.9 kg/sq m Allergic rhinitis Personal history of nicotine dependence COPD (chronic obstructive pulmonary disease) Obstructive sleep apnea Back pain Thyroid disease Shoulder pain Compression fracture of L5 lumbar vertebra Hypothyroidism Anxiety and depression Osteoarthritis Osteoporosis Vitamin D deficiency Surgical History History of tonsillectomy History of thyroidectomy H/O: hysterectomy Family History Mother Heart disease Social History adopted: No household members: family number of children: 3 current occupational status: disabled pets and animals: Yes sexually active: No Smoking Status: Former smoker quit date: 03/17/14 pack-years: 22 Tobacco: How many years used: 22 alcohol intake: never substance use type: does not use caffeine: Yes (2-3) Type: coffee Number of servings: 3 frequency: does not exercise do you feel safe at home: Yes HPI HPI Chief Complaint: 3m f.u Details: PINA ORTEGA, is a 63 F who presents to the office today for a 3-month follow-up exam. She has a lesion on her nose that she has been watching for several months and has recently bumped it and it bled a little bit. She does have a history of basal cell cancers. She has started her Prolia for her osteoporosis and wonders if she can have a handicap parking sticker as she is having difficulty walking any significant distance because of her multiple spinal fractures. ROS Const Constitutional: No body ache, chills, excessive sweating, fatigue, fever(s), frequent falls, headache(s), snoring, weakness or change in appetite Eyes Eyes: No blurry vision, change in vision, eye pain or Light sensitivity ENT ENT: No abnormal hearing, ear or mastoid p (more content not included)... Normal [facility] Office Visit Reporton 2023 Office Visit Report [facility] [address] [place] [address] OFFICE VISIT Date of Service: 10/09/23 MR#: [id number] Acct: [id number] Patient: PINA ORTEGA Rep #: [id number] : 1960 Provider: MONICA NURSE Age/Sex: 63/F Location: [facility] Status: Signed Intake Vital Signs 07/29/23 15:03 Height 5 ft 7 in Weight: 172 lb BMI 26.9 BP 110/70 Blood Pressure Location Lt brachial Position Sitting Respiration 16 Pulse 82 Pulse Source Monitor Temp 99 F Temp Source Temporal Pulse Oximetry (%) 97 Oxygen Delivery Method room air Intake Visit Reasons: PROLIA Chief Complaint: prolia injection Allergies No Known Allergies Allergy (Verified 07/29/23 14:47) Office Procedures Injections Site of injection: Sub-Q Is this patient provided medication?: Yes Additional Details[facility] Meds Prolia 60 mg/mL subcutaneous syringe Performing Provider: Vu Ramon DO Performing Location: [facility] Administered by: Liset Lozoya MA on 10/09/23 13:17 Dose Route Admin Location Dispensed Lot Number Expiration Date [facility] Man ufacturer 60 mg subcut left sub Q 1 mL [id number] 01/14/26 94449-720-09 AMGEN Comments: pt tolerated well Assessment and Plan Assessment and Plan Orders: Orders Prolia Injection 10/09/23 M81.0 - Age-related osteoporosis without current pathological fracture 10/13/23 1234 Date Yoanna Mohamud Signature: Date (if applicable) CC: Normal [facility] Dexa Bone Density Studyon Dexa Bone Density Study [facility] Imaging Services [address] [place] [id number] Dexa Bone Density Study MR#: [id number] Acct: [id number] Name: PINA ORTEGA Rep #: [id number] : 1960 F 63 From: Coleman coreas MD PCP: Dr. Vu Ramon DO Status: [facility] Study: Dexa Bone Density Study Date of Exam: 09/25/23 Exam# [id number] Ordering Dr: Vu Ramon DO [id number] STUDY: DUAL ENERGY X-RAY ABSORPTIOMETRY / DXA REASON FOR EXAM: Female, 63 years old. Osteoporosis TECHNIQUE: Bone Mineral Density (BMD) measurements of the left forearm and bilateral hips were obtained. COMPARISON: Comparison is made with prior study November 02, 2019. FINDINGS: Left Femur Total: g/cm2 (0.598) / T-score (-2.8) / Z-score (-1.7) Left Femoral Neck: g/cm2 (0.460) / T-score (-3.5) / Z-score (-2.1) Right Femur Total: g/cm2 (0.513) / T-score (-3.5) / Z-score (-2.4) Right Femoral Neck: g/cm2 (0.427) / T-score (-3.8) / Z-score (-2.4) Left Forearm: g/cm2 (0.396) / T-score (-3.4) / Z-score (-1.9) The T-Scores on the most recent prior examination were: Left Femur Total: which represents a worsening of 0.6%. Right Femur Total: which represents a worsening of 12.9%. BD/Dexa Bone Density Study IMPRESSION: The patient is considered osteoporotic as outlined below according to World Mani Organization (WHO) criteria with a high fracture risk. There has been worsening of bone density since the previous examination. Reference Information: The T-score is the number of standard deviations above or below the standard which is normal for young adults at their peak bone mineral density. The World Health Organization (WHO) interprets the T-scores as follows: Above -1 Normal bone density Between -1 and -2.5 Osteopenia Equal to / or below -2.5 Osteoporosis As a practical clinical guideline, osteopenia may be graded as follows: Mild -1 through -1.5 Moderate -1.6 through -2.0 Severe -2.1 through -2.4 The Z-score is the number of standard deviations above or below age-matched controls. A Z-score of less than -1.5 would be considered abnormal. References: 1. NIH Osteoporosis and Related Bone Diseases www osteo.org 2. International Society for Clinical Densitometry www iscd.org 3. National Osteoporosis Foundation www nof.org Electronically Signed: Coleman Sutton MD at 11:16 EDT , CC: Dr. Vu Ramon, DO Strategic Planner: Signed Normal [facility] Basophil percentageon 2021 Chloride [Moles/Vol] 112 mmol/L 98-[address] [facility] Work Phone: Glucose [Mass/Vol] 91 mg/dL 74-106 [facility] Work Phone: Potassium [Moles/Vol] 3.8 mmol/L 3.5-5.1 [facility] Work Phone: Sodium [Moles/Vol] 144 mmol/L 136-145 [facility] Work Phone: Laboratory - Chemistry and C hemistry - challengeon 09-25-2021 CO2 [Moles/Vol] 26.0 mmol/L 21.0-32.0 [facility] Work Phone: Urea nitrogen/Creatinine [Mass ratio] 13.3 mg/mg 10-20 [facility] Work Phone: No Panel Informationon 09-25 Estimated Creatinine Clearance Calc 95.75 ml/min [facility] Work Phone: Estimated GFR (MDRD) Amer 131 mL/min >60 [facility] Work Phone: Comment on above: GFR Calc Estimated GFR (MDRD) Non-Af Amer 108 mL/min >60 [facility] Work Phone: Comment on above: Non- GFR Calc Serum or plasma calcium bhupendra urement (mass/volume)on 09-25-2021 Calcium [Mass/Vol] 8.0 mg/dL 8.5-10.1 [facility] Work Phone: Serum or plasma creatinine m easurement (mass/volume)on 09-25-2021 Creatinine [Mass/Vol] 0.60 mg/dL 0.55-1.02 [facility] Work Phone: Comment on above: The validity of the calculated GFR & GFRAA in patients over 70 years has not been determined. Clinical correlation is essential. Serum or plasma urea nitroge n measurement (mass/volume)on 09-25-2021 Urea nitrogen [Mass/Vol] 8 mg/dL 7-18 [facility] Work Phone: Thin prep Papanicolaou smear with manual screeningon 09-25-2021 Thin prep Papanicolaou smear with manual screening 6 5-15 [facility] Work Phone: Absolute lymphocyte counton 09-24-2021 Lymphocytes Auto (Unsp spec) [#/Vol] 1.70 10*3/uL 0.83-4.51 [facility] Work Phone: Basophil percentageon 2021 Basophils/100 WBC (Bld) 1.3 % 0-1 [facility] Work Phone: Chloride [Moles/Vol] 107 mmol/L 98-[address] [facility] Work Phone: Eosinophils/100 WBC (Bld) 2.3 % 0-5 [facility] Work Phone: Glucose [Mass/Vol] 91 mg/dL 74-106 [facility] Work Phone: Neutrophils (Bld) [#/Vol] 2.3 10*3/uL 2.0-7.7 [facility] Work Phone: Neutrophils/100 WBC (Bld) 48.4 % 47-70 [facility] Work Phone: Potassium [Moles/Vol] 3.5 mmol/L 3.5-5.1 [facility] Work Phone: Sodium [Moles/Vol] 140 mmol/L 136-145 [facility] Work Phone: WBC (Bld) [#/Vol] 4.8 10*3/uL 4.4-11.0 [facility] Work Phone: Blood erythrocytes count (nu mber/volume)on 09-24-2021 RBC (Bld) [#/Vol] 4.85 10*6/uL 4.2-5.4 [facility] Work Phone: Blood hemoglobin measurement (mass/volume)on 09-24-2021 Hemoglobin (Bld) [Mass/Vol] 13.5 g/dL 12.0-15.0 [facility] Work Phone: Blood lymphocytes/100 leukoc yteson 09-24-2021 Lymphocytes/100 WBC (Bld) 35.5 % 19-41 [facility] Work Phone: Blood monocytes/100 leukocyt eson 09-24-2021 Monocytes/100 WBC (Bld) 12.3 % 0-10 [facility] Work Phone: Blood platelet mean volumeon 09-24-2021 Platelet mean volume (Bld) [Entitic vol] 8.8 fL 6.2-12.0 [facility] Work Phone: Determination of erythrocyte mean corpuscular volume (MCV)on 09-24-2021 MCV (RBC) [Entitic vol] 83.5 fL 81-99 [facility] Work Phone: Hematocrit Auto (Bld) [Volum e fraction]on 09-24-2021 Hematocrit (Bld) [Volume fraction] 40.5 % 37-47 [facility] Work Phone: Laboratory - Chemistry and C hemistry - challengeon 09-24-2021 CO2 [Moles/Vol] 24.0 mmol/L 21.0-32.0 [facility] Work Phone: Urea nitrogen/Creatinine [Mass ratio] 20.1 mg/mg 10-20 [facility] Work Phone: Laboratory - Hematology and Cell countson 09-24-2021 Erythrocyte distribution width (RBC) [Entitic vol] 38.8 fL 35.1-43.9 [facility] Work Phone: Erythrocyte distribution width (RBC) [Ratio] 12.9 % 11.6-14.6 [facility] Work Phone: Immature granulocytes/100 WBC (Bld) 0.200 % 0.0-0.9 [facility] Work Phone: Comment on above: IG% - Immature Granu locytes (promyelocytes, myelocytes and metamyelocytes) > 1% indicates that a LEFT SHIFT is Present. MCH (RBC) [Entitic mass] 27.8 pg 27.0-32.0 [facility] Work Phone: Nucleated RBC/100 WBC (Bld) [Ratio] 0 % 0-5 [facility] Work Phone: MCHC Auto (RBC) [Mass/Vol]on 09-24-2021 MCHC (RBC) [Mass/Vol] 33.3 g/dL 32-36 [facility] Work Phone: No Panel Informationon 09-24 Estimated Creatinine Clearance Calc 88.39 ml/min [facility] Work Phone: Estimated GFR (MDRD) Amer 120 mL/min >60 [facility] Work Phone: Comment on above: GFR Calc Estimated GFR (MDRD) Non-Af Amer 99 mL/min >60 [facility] Work Phone: Comment on above: Non- GFR Calc Troponin I High Sensitivity < 3 pg/mL 3.0-54.0 [facility] Work Phone: Comment on above: Please Note: [place] t Units and Gender Specific Reference Ranges. For more information see Policy Stat Procedure Viper High Sensitivity Troponin (TNIH) and attachments. Platelets bldon 09-24-2021 Platelets (Bld) [#/Vol] 246 10*3/uL 150-450 [facility] Work Phone: Serum or plasma calcium bhupendra urement (mass/volume)on 09-24-2021 Calcium [Mass/Vol] 9.1 mg/dL 8.5-10.1 [facility] Work Phone: Serum or plasma creatinine m easurement (mass/volume)on 09-24-2021 Creatinine [Mass/Vol] 0.65 mg/dL 0.55-1.02 [facility] Work Phone: Comment on above: The validity of the calculated GFR & GFRAA in patients over 70 years has not been determined. Clinical correlation is essential. Serum or plasma urea nitroge n measurement (mass/volume)on 09-24-2021 Urea nitrogen [Mass/Vol] 13 mg/dL 7-18 [facility] Work Phone: Thin prep Papanicolaou smear with manual screeningon 09-24-2021 Thin prep Papanicolaou smear with manual screening 9 5-15 [facility] Work Phone: Absolute lymphocyte counton 08-09-2021 Lymphocytes Auto (Unsp spec) [#/Vol] 1.70 10*3/uL 0.83-4.51 [facility] Work Phone: Basophil percentageon 2021 Basophils/100 WBC (Bld) 1.1 % 0-1 [facility] Work Phone: Chloride [Moles/Vol] 105 mmol/L 98-[address] [facility] Work Phone: Eosinophils/100 WBC (Bld) 3.0 % 0-5 [facility] Work Phone: Glucose [Mass/Vol] 94 mg/dL 74-106 [facility] Work Phone: Neutrophils (Bld) [#/Vol] 2.9 10*3/uL 2.0-7.7 [facility] Work Phone: Neutrophils/100 WBC (Bld) 54.7 % 47-70 [facility] Work Phone: Potassium [Moles/Vol] 3.7 mmol/L 3.5-5.1 [facility] Work Phone: Sodium [Moles/Vol] 138 mmol/L 136-145 [facility] Work Phone: WBC (Bld) [#/Vol] 5.3 10*3/uL 4.4-11.0 [facility] Work Phone: Blood erythrocytes count (nu mber/volume)on 08-09-2021 RBC (Bld) [#/Vol] 4.65 10*6/uL 4.2-5.[address] [facility] Work Phone: Blood hemoglobin measurement (mass/volume)on 08-09-2021 Hemoglobin (Bld) [Mass/Vol] 13.1 g/dL 12.0-15.0 [facility] Work Phone: Blood lymphocytes/100 leukoc yteson 08-09-2021 Lymphocytes/100 WBC (Bld) 32.0 % 19-41 [facility] Work Phone: Blood monocytes/100 leukocyt eson 08-09-2021 Monocytes/100 WBC (Bld) 8.8 % 0-10 [facility] Work Phone: Blood platelet mean volumeon 08-09-2021 Platelet mean volume (Bld) [Entitic vol] 9.3 fL 6.2-12.0 [facility] Work Phone: Determination of erythrocyte mean corpuscular volume (MCV)on 08-09-2021 MCV (RBC) [Entitic vol] 86.2 fL 81-99 [facility] Work Phone: Hematocrit Auto (Bld) [Volum e fraction]on 08-09-2021 Hematocrit (Bld) [Volume fraction] 40.1 % 37-47 [facility] Work Phone: Laboratory - Chemistry and C hemistry - challengeon 08-09-2021 CO2 [Moles/Vol] 26.0 mmol/L 21.0-32.0 [facility] Work Phone: Urea nitrogen/Creatinine [Mass ratio] 21.0 mg/mg 10-20 [facility] Work Phone: Laboratory - Hematology and Cell countson 08-09-2021 Erythrocyte distribution width (RBC) [Entitic vol] 40.2 fL 35.1-43.9 [facility] Work Phone: Erythrocyte distribution width (RBC) [Ratio] 12.8 % 11.6-14.6 [facility] Work Phone: Immature granulocytes/100 WBC (Bld) 0.400 % 0.0-0.9 [facility] Work Phone: Comment on above: IG% - Immature Granu locytes (promyelocytes, myelocytes and metamyelocytes) > 1% indicates that a LEFT SHIFT is Present. MCH (RBC) [Entitic mass] 28.2 pg 27.0-32.0 [facility] Work Phone: Nucleated RBC/100 WBC (Bld) [Ratio] 0 % 0-5 [facility] Work Phone: MCHC Auto (RBC) [Mass/Vol]on 08-09-2021 MCHC (RBC) [Mass/Vol] 32.7 g/dL 32-36 [facility] Work Phone: No Panel Informationon 08-09 Estimated Creatinine Clearance Calc 80.92 ml/min [facility] Work Phone: Estimated GFR (MDRD) Amer 107 mL/min >60 [facility] Work Phone: Comment on above: GFR Calc Estimated GFR (MDRD) Non-Af Amer 88 mL/min >60 [facility] Work Phone: Comment on above: Non- GFR Calc Troponin I High Sensitivity < 3 pg/mL 3.0-54.0 [facility] Work Phone: Comment on above: Please Note: [place] t Units and Gender Specific Reference Ranges. For more information see Policy Stat Procedure Viper High Sensitivity Troponin (TNIH) and attachments. Platelets bldon 08-09-2021 Platelets (Bld) [#/Vol] 227 10*3/uL 150-450 [facility] Work Phone: Serum or plasma calcium bhupendra urement (mass/volume)on 08-09-2021 Calcium [Mass/Vol] 8.9 mg/dL 8.5-10.1 [facility] Work Phone: Serum or plasma creatinine m easurement (mass/volume)on 08-09-2021 Creatinine [Mass/Vol] 0.71 mg/dL 0.55-1.02 [facility] Work Phone: Comment on above: The validity of the calculated GFR & GFRAA in patients over 70 years has not been determined. Clinical correlation is essential. Serum or plasma urea nitroge n measurement (mass/volume)on 08-09-2021 Urea nitrogen [Mass/Vol] 15 mg/dL 7-18 [facility] Work Phone: Thin prep Papanicolaou smear with manual screeningon 08-09-2021 Thin prep Papanicolaou smear with manual screening 7 5-15 [facility] Work Phone: CALCIFEDIOL ([id number])Ordered B y: Soils Engineer on 02-20-2021 25-hydroxyvitamin D [Mass/Vol] 54.4 ng/mL Normal 30.0-100.0 [facility]; [facility] Work Phone: Comment on above: Vitamin D deficiency has been defined by the [place] ofMedicine and an Endocrine Society practice guideline as alevel of serum 25-OH vitamin D less than 20 ng/mL (1,2).The Endocrine Society went on to further define vitamin Dinsufficiency as a level between 21 and 29 ng/mL (2).1. IOM ([place] of Medicine). 2010. Dietary reference intakes for calcium and D. [place]: The National Academies Press.2. Hansa MF, Hannah [place], Azucena WILCOX, et al. Evaluation, treatment, and prevention of vitamin D deficiency: an Endocrine Society clinical practice guideline. JCEM. 2010; 96(7):1911-30. PATIENT WAS FASTINGP ERFORMED BY: CB [facility] [id number] RoadDublin [place] [id number] CBC, Platelets & Auto Diff ( [id number])Ordered By: Soils Engineer on 02-20-2021 Basophils (Bld) [#/Vol] 0.1 10*3/uL Normal 0.0-0.2 [facility]; [facility] Work Phone: Comment on above: PATIENT WAS FASTINGP ERFORMED BY: [facility] [id number] [address]Dublin [place] [id number] Basophils/100 WBC (Bld) 1 % Normal [facility]; [facility] Work Phone: Comment on above: PATIENT WAS FASTINGP ERFORMED BY: [facility] Jetfuq[address] [place] [id number] Eosinophils (Bld) [#/Vol] 0.2 10*3/uL Normal 0.0-0.4 [facility]; [facility] Work Phone: Comment on above: PATIENT WAS FASTINGP ERFORMED BY: [facility] [id number]Dublin [place] [id number] Eosinophils/100 WBC (Bld) 2 % Normal [facility]; [facility] Work Phone: Comment on above: PATIENT WAS FASTINGP ERFORMED BY: CB [facility] [id number]Dublin [place] [id number] Erythrocyte distribution width (RBC) [Ratio] 12.5 % Normal 11.7-15.4 [facility]; [facility] Work Phone: Comment on above: PATIENT WAS FASTINGP ERFORMED BY: CB [facility] [id number]Dublin [place] [id number] Hematocrit (Bld) [Volume fraction] 43.6 % Normal 34.0-46.6 [facility]; [facility] Work Phone: Comment on above: PATIENT WAS FASTINGP ERFORMED BY: ARELIS Neumann [id number] [facility] [id number] Hemoglobin (Bld) [Mass/Vol] 14.5 g/dL Normal 11.1-15.9 [facility]; [facility] Work Phone: Comment on above: PATIENT WAS FASTINGP ERFORMED BY: [facility] [facility] [id number] Immature granulocytes (Bld) [#/Vol] 0.0 10*3/uL Normal 0.0-0.1 [facility]; [facility] Work Phone: Comment on above: PATIENT WAS FASTINGP ERFORMED BY: [facility] [facility] [id number] Immature granulocytes/100 WBC (Bld) 0 % Normal [facility]; [facility] Work Phone: Comment on above: PATIENT WAS FASTINGP ERFORMED BY: [facility] [facility] [id number] Lymphocytes (Bld) [#/Vol] 1.9 10*3/uL Normal 0.7-3.1 [facility]; [facility] Work Phone: Comment on above: PATIENT WAS FASTINGP ERFORMED BY: [facility] [facility] [id number] Lymphocytes/100 WBC (Bld) 30 % Normal [facility]; [facility] Work Phone: Comment on above: PATIENT WAS FASTINGP ERFORMED BY: [facility] Wikgpn[address] [facility] [place] [id number] MCH (RBC) [Entitic mass] 28.0 pg Normal 26.6-33.0 [facility]; [facility] Work Phone: Comment on above: PATIENT WAS FASTINGP ERFORMED BY: [facility] Vocuor[address] [facility] [id number] MCHC (RBC) [Mass/Vol] 33.3 g/dL Normal 31.5-35.7 [facility]; [facility] Work Phone: Comment on above: PATIENT WAS FASTINGP ERFORMED BY: ARELIS Lisa Carrizales6370 [address] RoadLewisblin [place] [id number] MCV (RBC) [Entitic vol] 84 fL Normal 79-97 [facility]; [facility] Work Phone: Comment on above: PATIENT WAS FASTINGP ERFORMED BY: ARELIS [facility] Vqqlpu[address] [facility] [place] [id number] Monocytes (Bld) [#/Vol] 0.6 10*3/uL Normal 0.1-0.9 [facility]; [facility] Work Phone: Comment on above: PATIENT WAS FASTINGP ERFORMED BY: ARELIS Lab[facility] WinSecxou15[address] RoadNovant Health [facility] Centerin [place] [id number] Monocytes/100 WBC (Bld) 9 % Normal [facility]; [facility] Work Phone: Comment on above: PATIENT WAS FASTINGP ERFORMED BY: ARELIS [facility] Gzittm8399 Bishop RoadNovant Health P[facility] Centerin [place] [id number] Neutrophils (Bld) [#/Vol] 3.5 10*3/uL Normal 1.4-7.0 [facility]; [facility] Work Phone: Comment on above: PATIENT WAS FASTINGP ERFORMED BY: ARELIS [facility] Klixtn2221 [address] RoadNovant Health Pender Medical Centerin [place] [id number] Neutrophils/100 WBC (Bld) 58 % Normal [facility]; [facility] Work Phone: Comment on above: PATIENT WAS FASTINGP ERFORMED BY: ARELIS [facility] Eadisp3565 [address] RoadDublin [place] [id number] Platelets (Bld) [#/Vol] 314 10*3/uL Normal 150-450 [facility]; [facility] Work Phone: Comment on above: PATIENT WAS FASTINGP ERFORMED BY: ARELIS [facility] Spkipk[address] [facility] Hospitalblin [place] [id number] RBC (Bld) [#/Vol] 5.18 10*6/uL Normal 3.77-5.28 [facility]; [facility] Work Phone: Comment on above: PATIENT WAS FASTINGP ERFORMED BY: ARELIS [facility] Tdritn6063 [address] RoadDublin [place] [id number] WBC (Bld) [#/Vol] 6.2 10*3/uL Normal 3.4-10.8 [facility]; [facility] Work Phone: Comment on above: PATIENT WAS FASTINGP ERFORMED BY: ARELIS [facility] Wbuqsp2085 [address] RoadDublin [place] [id number] LIPID PANEL (03058)Ordered B y: Soils Engineer on 02-20-2021 Cholesterol [Mass/Vol] 176 mg/dL Normal 100-199 [facility]onde[place] healthensive Internal Medicine; [facility] Work Phone: Comment on above: PATIENT WAS FASTINGP ERFORMED BY: ARELIS [facility] Avqhfg9535 [address] RoadDublin [place] [id number] Cholesterol in HDL [Mass/Vol] 59 mg/dL Normal [facility]; [facility] Work Phone: Comment on above: PATIENT WAS FASTINGP ERFORMED BY: ARELIS [facility] Jiajbi4[address] RoadDublin [place] [id number] Triglyceride [Mass/Vol] 105 mg/dL Normal 0-149 [facility]; [facility] Work Phone: Comment on above: PATIENT WAS FASTINGP ERFORMED BY: ARELIS [facility] Ejgrrq1547 [address] RoadDublin [place] [id number] LIPID PANEL (25130) 19 mg/dL Normal 5-40 Compr ensive Internal Medicine; [facility] Work Phone: Comment on above: PATIENT WAS FASTINGP ERFORMED BY: ARELIS [facility] Oiiepn2868 [address] RoadDublin [place] [id number] LIPID PANEL (11289) 98 mg/dL Normal 0-99 Compr ensive Internal Medicine; [facility] Work Phone: Comment on above: PATIENT WAS FASTINGP ERFORMED BY: CB [facility] Zwxljc2235 [address] RoadDublin [place] [id number] LIPID PANEL (18791) 1.7 {ratio} Normal 0.0-3.2 [facility] Internal Medicine; [facility] Work Phone: Comment on above: LDL/HDL Ratio Men Wo men 1/2 Avg.Risk 1.0 1.5 Avg.Risk 3.6 3.2 2X Avg.Risk 6.2 5.0 3X Avg.Risk 8.0 6.1 PATIENT WAS FASTINGP ERFORMED BY: CB [facility] Izzkrs6656 [address] RoadDublin [place] [id number] Metabolic Panel, Comprehensi ve (91536)Ordered By: Soils Engineer on 02-20-2021 Albumin [Mass/Vol] 4.6 g/dL Normal 3.8-4.9 [facility] Internal Medicine; [facility] Work Phone: Comment on above: PATIENT WAS FASTINGP ERFORMED BY: CB [facility] Lsbtsb7527 [address] RoadDublin [place] [id number] Albumin/Globulin [Mass ratio] 2.1 {ratio} Normal 1.2-2.2 [facility]; [facility] Work Phone: Comment on above: PATIENT WAS FASTINGP ERFORMED BY: CB [facility] Kfjsbx8771 [address] RoadDublin [place] [id number] ALP [Catalytic activity/Vol] 126 U/L Abnormal 44-121 [facility]; [facility] Work Phone: Comment on above: Please note refere nce interval change PATIENT WAS FASTINGP ERFORMED BY: CB [facility] Cohnkk9481 [address] RoadDublin [place] [id number] ALT [Catalytic activity/Vol] 16 U/L Normal 0-32 [facility]; [facility] Work Phone: Comment on above: PATIENT WAS FASTINGP ERFORMED BY: CB [facility] Mdwzbn0771 [address] RoadDublin [place] [id number] AST [Catalytic activity/Vol] 16 U/L Normal 0-40 [facility]; [facility] Work Phone: Comment on above: PATIENT WAS FASTINGP ERFORMED BY: ARELIS Gonzalez Cnplhn9106 [address] RoadDublin [place] [id number] Bilirubin [Mass/Vol] 0.4 mg/dL Normal 0.0-1.2 Comp rehensive Internal Medicine; [facility] Work Phone: Comment on above: PATIENT WAS FASTINGP ERFORMED BY: CB [facility] Ryokzt7611 [address] RoadDublin [place] [id number] Calcium [Mass/Vol] 9.4 mg/dL Normal 8.7-10.3 [facility]; [facility] Work Phone: Comment on above: PATIENT WAS FASTINGP ERFORMED BY: ARELIS Neumannrp Bjrwmv2666 [address] RoadDublin [place] [id number] Chloride [Moles/Vol] 103 mmol/L Normal 96-106 Comp rehensive Internal Medicine; [facility] Work Phone: Comment on above: PATIENT WAS FASTINGP ERFORMED BY: CB [facility] Vhiehs8481 [address] RoadDublin [place] [id number] CO2 [Moles/Vol] 23 mmol/L Normal 20-29 [facility]; [facility] Work Phone: Comment on above: PATIENT WAS FASTINGP ERFORMED BY: ARELIS Gonzalez Rpbtdy5613 [address] RoadDublin [place] [id number] Creatinine [Mass/Vol] 0.85 mg/dL Normal 0.57-1.00 [facility] prehensive Internal Medicine; [facility] Work Phone: Comment on above: PATIENT WAS FASTINGP ERFORMED BY: CB [facility] Dbjoan4394 [address] RoadDublin [place] [id number] GFR/1.73 sq M.predicted among blacks CKD-EPI (S/P/Bld) [Vol rate/Area] 86 mL/min/1.73 Normal [facility]; [facility] Work Phone: Comment on above: In accordance with recommendations from the NKF-ASN Task force, [facility] is in the process of updating its eGFR calculation to the 2020 CKD-EPI creatinine equation that estimates kidney function without a race variable. PATIENT WAS FASTINGP ERFORMED BY: ARELIS Carrizales6[address] [facility] [id number] GFR/1.73 sq M.predicted among non-blacks CKD-EPI (S/P/Bld) [Vol rate/Area] 75 mL/min/1.73 Normal [facility]; [facility] Work Phone: Comment on above: PATIENT WAS FASTINGP ERFORMED BY: ARELIS Winlin6370 [facility] [id number] Globulin (S) [Mass/Vol] 2.2 g/dL Normal 1.5-4.5 [facility] Internal Medicine; [facility] Work Phone: Comment on above: PATIENT WAS FASTINGP ERFORMED BY: ARELIS Winlin6370 [facility] [id number] Glucose [Mass/Vol] 82 mg/dL Normal 65-99 [facility] Internal Medicine; [facility] Work Phone: Comment on above: PATIENT WAS FASTINGP ERFORMED BY: ARELIS Carrizales6370 [facility] [id number] Potassium [Moles/Vol] 3.8 mmol/L Normal 3.5-5.2 [facility] prehensive Internal Medicine; [facility] Work Phone: Comment on above: PATIENT WAS FASTINGP ERFORMED BY: ARELIS Neumann Qtjnkh2638 [facility] [id number] Protein [Mass/Vol] 6.8 g/dL Normal 6.0-8.5 [facility] Internal Medicine; [facility] Work Phone: Comment on above: PATIENT WAS FASTINGP ERFORMED BY: ARELIS Winlin6370 [facility] [id number] Sodium [Moles/Vol] 141 mmol/L Normal 134-144 [facility] Internal Medicine; [facility] Work Phone: Comment on above: PATIENT WAS FASTINGP ERFORMED BY: ARELIS Neumann Romlap6701 [address] Roadblin [place] [id number] Urea nitrogen [Mass/Vol] 12 mg/dL Normal 8-27 [facility]; [facility] Work Phone: Comment on above: PATIENT WAS FASTINGP ERFORMED BY: CB [facility] Ivcste2549 [address] RoadDublin [place] [id number] Urea nitrogen/Creatinine [Mass ratio] 14 mg/mg Normal 12-28 [facility]; [facility] Work Phone: Comment on above: PATIENT WAS FASTINGP ERFORMED BY: CB [facility] Lhvemt3266 [address] RoadDublin [place] [id number] TSH (THYROID STIMULATING HOR NAYAN) (60555)Ordered By: Soils Engineer on 02-20-2021 TSH Qn 2.670 {uIU/mL} Normal 0.450-4.500 [facility] Internal Medicine; [facility] Work Phone: Comment on above: PATIENT WAS FASTINGP ERFORMED BY: [facility] Kcwuxy4703 [address] RoadDublin [place] [id number] CALCIFEDIOL (57659)Ordered B y: Soils Engineer on 08-01-2020 25-hydroxyvitamin D [Mass/Vol] 33.8 ng/mL Normal 30.0-100.0 [facility]; [facility] Work Phone: Comment on above: Vitamin D deficiency has been defined by the [place] ofA[facility] Community Hospitalcine and an Endocrine Society practice guideline as alevel of serum 25-OH vitamin D less than 20 ng/mL (1,2).The Endocrine Society went on to further define vitamin Dinsufficiency as a level between 21 and 29 ng/mL (2).1. IOM ([place] of Medicine). 2010. Dietary reference intakes for calcium and D. [place]: The National Academies Press.2. Hansa MF, Hannah POTTS, Azucena WILCOX, et al. Evaluation, treatment, and prevention of vitamin D deficiency: an Endocrine Society clinical practice guideline. JCEM. 2010; 96(7):1911-30. PATIENT NOT FASTINGP ERFORMED BY: CB [facility] Ugdete9769 [address] RoadDublin [place] [id number] Metabolic Panel, Comprehensi ve (73420)Ordered By: Soils Engineer on 12-29-2019 Albumin [Mass/Vol] 4.5 g/dL Normal 3.8-4.9 [facility] Internal Medicine Work Phone: Comment on above: Dec 2019; PATIENT WA S FASTINGPERFORMED BY: CB [facility] Swutoe0131 [address] RoadDublin [place] [id number] Albumin/Globulin [Mass ratio] 2.3 {ratio} Abnormal 1.2-2.2 [facility] Work Phone: Comment on above: Dec 2019; PATIENT WA S FASTINGPERFORMED BY: CB [facility] Yrntcx3794 [address] RoadDublin [place] [id number] ALP [Catalytic activity/Vol] 104 [iU]/L Normal 39-117 [facility] Work Phone: Comment on above: Dec 2019; PATIENT WA S FASTINGPERFORMED BY: CB [facility] Japslh2592 [address] RoadDublin [place] [id number] ALP [Catalytic activity/Vol] 104 U/L Normal 39-117 [facility]; [facility] Work Phone: Comment on above: Dec 2019; PATIENT WA S FASTINGPERFORMED BY: CB [facility] Ejbyzp6008 [address] RoadDublin [place] [id number] ALT [Catalytic activity/Vol] 13 [iU]/L Normal 0-32 [facility] Work Phone: Comment on above: Dec 2019; PATIENT WA S FASTINGPERFORMED BY: CB [facility] Cvfjsi1480 [address] RoadDublin [place] [id number] ALT [Catalytic activity/Vol] 13 U/L Normal 0-32 [facility]; [facility] Work Phone: Comment on above: Dec 2019; PATIENT WA S FASTINGPERFORMED BY: CB [facility] Ptmpzt2318 [address] RoadDublin [place] [id number] AST [Catalytic activity/Vol] 15 [iU]/L Normal 0-40 [facility] Work Phone: Comment on above: Dec 2019; PATIENT WA S FASTINGPERFORMED BY: CB [facility] Ggyqpb9297 [address] RoadDublin [place] [id number] AST [Catalytic activity/Vol] 15 U/L Normal 0-40 [facility]; [facility] Work Phone: Comment on above: Dec 2019; PATIENT DIALLO S FASTINGPERFORMED BY: CB [facility] Chhtci0018 [address] RoadDublin [place] [id number] Bilirubin [Mass/Vol] 0.3 mg/dL Normal 0.0-1.2 [facility] rehensive Internal Medicine Work Phone: Comment on above: Dec 2019; PATIENT DIALLO S FASTINGPERFORMED BY: CB [facility] Ocugod7101 [address] RoadDublin [place] [id number] Calcium [Mass/Vol] 9.4 mg/dL Normal 8.7-10.2 [facility] Internal Medicine Work Phone: Comment on above: Dec 2019; PATIENT DIALLO S FASTINGPERFORMED BY: CB [facility] Gaffwt5715 [address] RoadDublin [place] [id number] Chloride [Moles/Vol] 104 mmol/L Normal 96-106 [facility] Work Phone: Comment on above: Dec 2019; PATIENT DIALLO S FASTINGPERFORMED BY: CB [facility] Qgxlno1423 [address] RoadDublin [place] [id number] CO2 [Moles/Vol] 24 mmol/L Normal 20-29 [facility] Internal Medicine Work Phone: Comment on above: Dec 2019; PATIENT WA S FASTINGPERFORMED BY: CB [facility] Chxfim4082 [address] RoadDublin [place] [id number] Creatinine [Mass/Vol] 0.77 mg/dL Normal 0.57-1.00 [facility] Work Phone: Comment on above: Dec 2019; PATIENT DIALLO S FASTINGPERFORMED BY: CB [facility] Aauoti9864 [address] RoadDublin [place] [id number] GFR/1.73 sq M predicted among blacks CKD-EPI (S/P/Bld) [Vol rate/Area] 98 mL/min/1.73 Normal [facility] Work Phone: Comment on above: Dec 2019; PATIENT WA S FASTINGPERFORMED BY: CB [facility] Joagil7545 [address] RoadDublin [place] [id number] GFR/1.73 sq M predicted among non-blacks CKD-EPI (S/P/Bld) [Vol rate/Area] 85 mL/min/1.73 Normal [facility] Internal Medicine Work Phone: Comment on above: Dec 2019; PATIENT WA S FASTINGPERFORMED BY: CB [facility] Cjpdse3852 [address] RoadDublin [place] [id number] Globulin (S) [Mass/Vol] 2.0 g/dL Normal 1.5-4.5 [facility] Internal Medicine Work Phone: Comment on above: Dec 2019; PATIENT WA S FASTINGPERFORMED BY: CB [facility] Vravyy9676 [address] RoadDublin [place] [id number] Glucose [Mass/Vol] 84 mg/dL Normal 65-99 [facility] Internal Medicine Work Phone: Comment on above: Dec 2019; PATIENT WA S FASTINGPERFORMED BY: CB [facility] Zowoed6935 [address] RoadDublin [place] [id number] Potassium [Moles/Vol] 4.1 mmol/L Normal 3.5-5.2 [facility] Internal Medicine Work Phone: Comment on above: Dec 2019; PATIENT WA S FASTINGPERFORMED BY: CB [facility] Xqpnfy3575 [address] RoadDublin [place] [id number] Protein [Mass/Vol] 6.5 g/dL Normal 6.0-8.5 [facility] Internal Medicine Work Phone: Comment on above: Dec 2019; PATIENT WA S FASTINGPERFORMED BY: CB [facility] Zjvumb7412 [address] RoadDublin [place] [id number] Sodium [Moles/Vol] 142 mmol/L Normal 134-144 [facility] Internal Medicine Work Phone: Comment on above: Dec 2019; PATIENT WA S FASTINGPERFORMED BY: CB [facility] Rtkfbj0856 [address] RoadDublin [place] [id number] Urea nitrogen [Mass/Vol] 24 mg/dL Normal 6-24 [facility] Work Phone: Comment on above: Dec 2019; PATIENT DIALLO S FASTINGPERFORMED BY: ARELIS LabMarjorie Carrizales6370 [facility] [id number] Urea nitrogen/Creatinine [Mass ratio] 31 mg/mg Abnormal 9- [facility] Work Phone: Comment on above: Dec 2019; PATIENT WA S FASTINGPERFORMED BY: ARELIS [facility] Iiimtl0856 [facility] [id number] TSH (THYROID STIMULATING HOR NAYAN) ([id number])Ordered By: Soils Engineer on 12-29-2019 TSH Qn 2.890 {uIU/mL} Normal 0.450-4.500 [facility] Internal Medicine Work Phone: Comment on above: Dec 2019; PATIENT DIALLO S FASTINGPERFORMED BY: ARELIS LabMarjorie WinUlmlgh6303 [facility] [id number] URINE CALCIUM OSVALDO TIMED (82 340)Ordered By: Soils Engineer on 07-11-2019 Calcium (24H U) [Mass/Time] 329 {mg/24_hr} Normal 47-462 [facility] Work Phone: Comment on above: 24 hr urine calcium; PATIENT NOT FASTINGPERFORMED BY: ARELIS Carrizales6370 [facility] [id number] Information: START 07/11/19@10AM FI NIISH 07/12/19 Calcium (24H U) [Mass/Vol] 25.3 mg/dL Normal [facility] Work Phone: Comment on above: 24 hr urine calcium; PATIENT NOT FASTINGPERFORMED BY: ARELIS [facility] Abyrfx3847 [facility] [id number] Information: START 07/11/19@10AM FI NIISH 07/12/19 ALKALINE PHOSPHATASE-ISOENZY M ([id number])Ordered By: Soils Engineer on 07-08-2019 ALP Bone [Catalytic fraction] 21 % Normal 14-68 [facility] Work Phone: Comment on above: PATIENT NOT FASTINGP ERFORMED BY: CB [facility] Eogsqj7512 [address] RoadDublin [place] [id number] ALP Intest [Catalytic fraction] 6 % Normal 0-18 [facility] Work Phone: Comment on above: PATIENT NOT FASTINGP ERFORMED BY: CB [facility] Kcknvg8485 [address] RoadDublin [place] [id number] ALP Liver [Catalytic fraction] 73 % Normal 18-85 [facility] Work Phone: Comment on above: PATIENT NOT FASTINGP ERFORMED BY: CB [facility] Vxkrut7036 [address] RoadDublin [place] [id number] Metabolic Panel, Comprehensi ve (70309)Ordered By: Soils Engineer on 07-08-2019 Albumin [Mass/Vol] 4.8 g/dL Normal 3.8-4.9 [facility] Internal Medicine Work Phone: Comment on above: PATIENT NOT FASTINGP ERFORMED BY: CB [facility] Vemcrq2658 [address] RoadDublin [place] [id number] Albumin/Globulin [Mass ratio] 2.5 {ratio} Abnormal 1.2-2.2 [facility] Work Phone: Comment on above: PATIENT NOT FASTINGP ERFORMED BY: CB [facility] Fnrtjg1046 [address] RoadDublin [place] [id number] ALP [Catalytic activity/Vol] 123 [iU]/L Abnormal 39-117 [facility] Work Phone: Comment on above: PATIENT NOT FASTINGP ERFORMED BY: CB [facility] Mdmtix1223 [address] RoadDublin [place] [id number] ALP [Catalytic activity/Vol] 123 U/L Abnormal 39-117 [facility]; [facility] Work Phone: Comment on above: PATIENT NOT FASTINGP ERFORMED BY: CB [facility] Jushgk8906 [address] RoadDublin [place] [id number] ALT [Catalytic activity/Vol] 13 [iU]/L Normal 0-32 [facility] Work Phone: Comment on above: PATIENT NOT FASTINGP ERFORMED BY: CB [facility] Hjqmln0383 [address] RoadDublin [place] [id number] ALT [Catalytic activity/Vol] 13 U/L Normal 0-32 [facility]; [facility] Work Phone: Comment on above: PATIENT NOT FASTINGP ERFORMED BY: CB [facility] Apjgxj1071 [address] RoadDublin [place] [id number] AST [Catalytic activity/Vol] 14 [iU]/L Normal 0-40 [facility] Work Phone: Comment on above: PATIENT NOT FASTINGP ERFORMED BY: CB [facility] Ecayqt3628 [address] RoadDublin [place] [id number] AST [Catalytic activity/Vol] 14 U/L Normal 0-40 [facility]; [facility] Work Phone: Comment on above: PATIENT NOT FASTINGP ERFORMED BY: CB [facility] Kcdryi2736 [address] RoadDublin [place] [id number] Bilirubin [Mass/Vol] 0.4 mg/dL Normal 0.0-1.2 [facility] Work Phone: Comment on above: PATIENT NOT FASTINGP ERFORMED BY: CB [facility] Bomxuz7947 [address] RoadDublin [place] [id number] Calcium [Mass/Vol] 10.2 mg/dL Normal 8.7-10.2 [facility] Internal Medicine Work Phone: Comment on above: PATIENT NOT FASTINGP ERFORMED BY: [facility] Thmrim9646 [address] RoadDublin [place] [id number] Chloride [Moles/Vol] 99 mmol/L Normal 96-106 [facility] Work Phone: Comment on above: PATIENT NOT FASTINGP ERFORMED BY: CB [facility] Zuxfan7447 [address] RoadDublin [place] [id number] CO2 [Moles/Vol] 24 mmol/L Normal 20-29 [facility] Internal Medicine Work Phone: Comment on above: PATIENT NOT FASTINGP ERFORMED BY: CB [facility] Ehwlns3214 [address] RoadDublin [place] [id number] Creatinine [Mass/Vol] 0.81 mg/dL Normal 0.57-1.00 [facility] Work Phone: Comment on above: PATIENT NOT FASTINGP ERFORMED BY: CB [facility] Rwzmof4522 [address] RoadNovant Health Pender Medical Centerin [place] [id number] GFR/1.73 sq M predicted among blacks CKD-EPI (S/P/Bld) [Vol rate/Area] 92 mL/min/1.73 Normal [facility] Work Phone: Comment on above: PATIENT NOT FASTINGP ERFORMED BY: CB [facility] Uhdimj9502 [address] RoadDublin [place] [id number] GFR/1.73 sq M predicted among non-blacks CKD-EPI (S/P/Bld) [Vol rate/Area] 80 mL/min/1.73 Normal [facility] Work Phone: Comment on above: PATIENT NOT FASTINGP ERFORMED BY: CB [facility] Dunzdi5456 [facility] RoadSc[facility] [id number] Globulin (S) [Mass/Vol] 1.9 g/dL Normal 1.5-4.5 [facility] Internal Medicine Work Phone: Comment on above: PATIENT NOT FASTINGP ERFORMED BY: CB [facility] Ccgzoy1108 [address] [employer] [facility] [employer] [facility] EuropeScotland Memorial Hospital [id number] Glucose [Mass/Vol] 73 mg/dL Normal 65-99 [facility] Internal Medicine Work Phone: Comment on above: PATIENT NOT FASTINGP ERFORMED BY: CB [facility] Bqgmun5969 [address] [facility] [id number] Potassium [Moles/Vol] 4.6 mmol/L Normal 3.5-5.2 [facility] Internal Medicine Work Phone: Comment on above: PATIENT NOT FASTINGP ERFORMED BY: CB [facility] Idrffl6812 [address] [facility]in [place] [id number] Protein [Mass/Vol] 6.7 g/dL Normal 6.0-8.5 [facility] Internal Medicine Work Phone: Comment on above: PATIENT NOT FASTINGP ERFORMED BY: CB [facility] Yynrcs9429 [address] RoadDublin [place] [id number] Sodium [Moles/Vol] 139 mmol/L Normal 134-144 [facility] Internal Medicine Work Phone: Comment on above: PATIENT NOT FASTINGP ERFORMED BY: [facility] Akbhzo9194 [address] [facility] [id number] Urea nitrogen [Mass/Vol] 17 mg/dL Normal 6-24 [facility] Work Phone: Comment on above: PATIENT NOT FASTINGP ERFORMED BY: [facility] Vxowvu2423 [facility] [id number] Urea nitrogen/Creatinine [Mass ratio] 21 mg/mg Normal 9-23 [facility] Work Phone: Comment on above: PATIENT NOT FASTINGP ERFORMED BY: LabCaro Center6370 [facility] [id number] CALCIFEDIOL ([id number])Ordered B y: Soils Engineer on 05-21-2019 25-Hydroxyvitamin D2+25-Hydroxyvitamin D3 [Mass/Vol] 71.3 ng/mL Normal 30.0-100.0 [facility] Work Phone: Comment on above: Vitamin D deficiency has been defined by the [place] ofMedicine and an Endocrine Society practice guideline as alevel of serum 25-OH vitamin D less than 20 ng/mL (1,2).The Endocrine Society went on to further define vitamin Dinsufficiency as a level between 21 and 29 ng/mL (2).1. IOM ([place] of Medicine). 2010. Dietary reference intakes for calcium and D. [place]: The National Academies Press.2. Hansa MF, Hannah [place], Azucena WILCOX, et al. Evaluation, treatment, and prevention of vitamin D deficiency: an Endocrine Society clinical practice guideline. JCEM. 2010; 96(7):1911-30. PATIENT NOT FASTINGP ERFORMED BY: [facility] Hmwtar5691 [facility] [id number] Celiac Disease Comphrehensiv e Profile (60808)Ordered By: Soils Engineer on 05-21-2019 Endomysium IgA Ql (S) Negative Normal Com prehensive Internal Medicine Work Phone: Comment on above: PATIENT NOT FASTINGP ERFORMED BY: ARELIS LabCoankita Vgdhxj1111 [address] [facility]in [place] [id number] Endomysium IgA Ql (S) Negative Normal Com prehensive Internal Medicine; [facility] Work Phone: Comment on above: PATIENT NOT FASTINGP ERFORMED BY: ARELIS [facility] Dhtihr8884 [address] [facility] [id number] Gliadin peptide IgA Qn (S) 4 {units} Normal 0-19 [facility] Work Phone: Comment on above: Negative 0 - 19 Weak Positive 20 - 30 Moderate to Strong Positive >30 PATIENT NOT FASTINGP ERFORMED BY: ARELIS LabMarjorie Nsvxmp4832 [facility] [id number] Gliadin peptide IgG Qn (S) 1 {units} Normal 0-19 [facility] Work Phone: Comment on above: Negative 0 - 19 Weak Positive 20 - 30 Moderate to Strong Positive >30 PATIENT NOT FASTINGP ERFORMED BY: ARELIS LabCoankita Xtlaqj4258 [facility] [id number] IgA [Mass/Vol] 154 mg/dL Normal 87-352 Comprehens shaheen Internal Medicine Work Phone: Comment on above: PATIENT NOT FASTINGP ERFORMED BY: ARELIS FelipeCoankita Qebhbw1420 [facility] [facility] [id number] tTG IgA Qn (S) <2 Normal 0-3 [facility] Work Phone: Comment on above: Negative 0 - 3 Weak Positive 4 - 10 Positive >10 . Tissue Transglutaminase (tTG) has been identified as the endomysial antigen. Studies have demonstr- ated that endomysial IgA antibodies have over 99% specificity for gluten sensitive enteropathy. PATIENT NOT FASTINGP ERFORMED BY: ARELIS [facility] [id number] [facility] [id number] tTG IgG Qn (S) <2 Normal 0-5 [facility] Work Phone: Comment on above: Negative 0 - 5 Weak Positive 6 - 9 Positive >9 PATIENT NOT FASTINGP ERFORMED BY: CB [facility] [id number] [address]Dublin [place] [id number] Metabolic Panel, Comprehensi ve ([id number])Ordered By: Soils Engineer on 05-21-2019 Albumin [Mass/Vol] 4.8 g/dL Normal 3.8-4.9 [facility] Internal Medicine Work Phone: Comment on above: PATIENT NOT FASTINGP ERFORMED BY: CB [facility] [id number] [address]Dublin [place] [id number] Albumin/Globulin [Mass ratio] 2.1 {ratio} Normal 1.2-2.2 [facility] Work Phone: Comment on above: PATIENT NOT FASTINGP ERFORMED BY: CB [facility] [id number] [address] [place] [id number] ALP [Catalytic activity/Vol] 141 [iU]/L Abnormal 39-117 [facility] Work Phone: Comment on above: PATIENT NOT FASTINGP ERFORMED BY: CB [facility] Pebolt1240 [address] [place] [id number] ALP [Catalytic activity/Vol] 141 U/L Abnormal 39-117 [facility]; [facility] Work Phone: Comment on above: PATIENT NOT FASTINGP ERFORMED BY: CB [facility] Wokroa2126 [address] [place] [id number] ALT [Catalytic activity/Vol] 16 [iU]/L Normal 0-32 [facility] Work Phone: Comment on above: PATIENT NOT FASTINGP ERFORMED BY: CB [facility] Lwqjqp0518 [address] [place] [id number] ALT [Catalytic activity/Vol] 16 U/L Normal 0-32 [facility]; [facility] Work Phone: Comment on above: PATIENT NOT FASTINGP ERFORMED BY: CB [facility] Qjcwgo1582 [address] [place] [id number] AST [Catalytic activity/Vol] 16 [iU]/L Normal 0-40 [facility] Work Phone: Comment on above: PATIENT NOT FASTINGP ERFORMED BY: CB [facility] Aswysv7035 [address] [place] [id number] AST [Catalytic activity/Vol] 16 U/L Normal 0-40 [facility]; [facility] Work Phone: Comment on above: PATIENT NOT FASTINGP ERFORMED BY: CB [facility] Zfsmmm8521 [address] [place] [id number] Bilirubin [Mass/Vol] 0.4 mg/dL Normal 0.0-1.2 [facility] Work Phone: Comment on above: PATIENT NOT FASTINGP ERFORMED BY: CB [facility] Jznjat1807 [address] [place] [id number] Calcium [Mass/Vol] 9.8 mg/dL Normal 8.7-10.2 [facility] Internal Medicine Work Phone: Comment on above: PATIENT NOT FASTINGP ERFORMED BY: CB [facility] Dlfeii4785 [address] [place] [id number] Chloride [Moles/Vol] 101 mmol/L Normal 96-106 [facility] rehensive Internal Medicine Work Phone: Comment on above: PATIENT NOT FASTINGP ERFORMED BY: CB [facility] Vubrga0[address] [place] [id number] CO2 [Moles/Vol] 22 mmol/L Normal 20-29 [facility] Work Phone: Comment on above: PATIENT NOT FASTINGP ERFORMED BY: CB [facility] [id number] [address] [place] [id number] Creatinine [Mass/Vol] 0.80 mg/dL Normal 0.57-1.00 [facility] Work Phone: Comment on above: PATIENT NOT FASTINGP ERFORMED BY: CB [facility] Xejrtv8621 [address] [place] [id number] GFR/1.73 sq M predicted among blacks CKD-EPI (S/P/Bld) [Vol rate/Area] 93 mL/min/1.73 Normal [facility] Work Phone: Comment on above: PATIENT NOT FASTINGP ERFORMED BY: CB [facility] Mljmeh1112 [address] [place] [id number] GFR/1.73 sq M predicted among non-blacks CKD-EPI (S/P/Bld) [Vol rate/Area] 81 mL/min/1.73 Normal [facility] Internal Medicine Work Phone: Comment on above: PATIENT NOT FASTINGP ERFORMED BY: CB [facility] Zukqmd4218 [address] [place] [id number] Globulin (S) [Mass/Vol] 2.3 g/dL Normal 1.5-4.5 [facility] Internal Medicine Work Phone: Comment on above: PATIENT NOT FASTINGP ERFORMED BY: CB [facility] [id number] [address] [place] [id number] Glucose [Mass/Vol] 95 mg/dL Normal 65-99 [facility] Internal Medicine Work Phone: Comment on above: PATIENT NOT FASTINGP ERFORMED BY: CB [facility] Ndbjnu0847 [address] [place] [id number] Potassium [Moles/Vol] 4.0 mmol/L Normal 3.5-5.2 [facility] Internal Medicine Work Phone: Comment on above: PATIENT NOT FASTINGP ERFORMED BY: CB [facility] Wqinlz1776 [address] [place] [id number] Protein [Mass/Vol] 7.1 g/dL Normal 6.0-8.5 [facility] Internal Medicine Work Phone: Comment on above: PATIENT NOT FASTINGP ERFORMED BY: CB [facility] Fithgf4239 [address] [place] [id number] Sodium [Moles/Vol] 140 mmol/L Normal 134-144 [facility] Internal Medicine Work Phone: Comment on above: PATIENT NOT FASTINGP ERFORMED BY: CB [facility] Gevxls5059 [address] [place] [id number] Urea nitrogen [Mass/Vol] 16 mg/dL Normal 6-24 [facility] Internal Medicine Work Phone: Comment on above: PATIENT NOT FASTINGP ERFORMED BY: CB [facility] Dzddis9100 [address] [place] [id number] Urea nitrogen/Creatinine [Mass ratio] 20 mg/mg Normal 9-23 [facility] Internal Medicine Work Phone: Comment on above: PATIENT NOT FASTINGP ERFORMED BY: CB [facility] [id number] [address] [place] [id number] PARATHORMONE ([id number])Ordered By: Soils Engineer on 05-21-2019 Parathyrin.intact [Mass/Vol] 23 pg/mL Normal 15-65 [facility] Internal Medicine Work Phone: Comment on above: PATIENT NOT FASTINGP ERFORMED BY: CB [facility] Gpqxxz2490 [address] [place] [id number] TSH (THYROID STIMULATING HOR NAYAN) ([id number])Ordered By: Soils Engineer on 11-27-2018 TSH Qn 3.260 {uIU/mL} Normal 0.450-4.500 [facility] Internal Medicine Work Phone: Comment on above: PATIENT NOT FASTINGP ERFORMED BY: CB [facility] Hooqqk[address] [employer] [place] [id number] CNOVon 10-14-2018 CNOV Office Visit (PODIWS ) PINA ORTEGA ([id number]) 1960 F Date Time Provider Department 10/14/18 9:45 AM RAHEEL MUKHERJEE During your visit today, we recorded the following information about you: Noemi Coronel RN 10/14/2018 10:56 AM Signed AMB ROOMING INTAKE FLOWSHEET DATA Patient presents with: Surgical Followup: 44 days s/p L 2-5 hammertoe correction Continues to wear post op shoe. She has new xrays to review. Raheel Mukherjee DPM 10/14/2018 10:56 AM Signed Follow up podiatric office visit for: Chief Complaint: This 58 year old who presents for follow up:hammertoe correction left 2nd, 3rd, 4th and 5th toes. Patient is doing very well. She states her wounds are healed. She has no pain. She is very happy with outcome from surgery. PAIN EVALUATION No data found in the last 1 encounters. No results found for: HBA1C PCP: Jessica May CNP PAST MEDICAL HISTORY Diagnosis Date - Anxiety state, unspecified - Cancer (HCC) thyroid - Depressive disorder major - Osteopenia - Osteoporosis - Unspecified hypothyroidism Hypothyroidism Current Outpatient Medications: cephALEXin (KEFLEX) 500 mg capsule Take 1 capsule by mouth three times daily. amitriptyline (ELAVIL) 25 mg tablet Take 25 mg by mouth daily at bedtime. albuterol HFA (PROVENTIL HFA, VENTOLIN HFA) 90 mcg/actuation inhaler 1 Puff three times daily. alendronate (FOSAMAX) 70 mg tablet 70 mg once each week. gabapentin (NEURONTIN) 300 mg capsule Take 300 mg by mouth three times daily. PARoxetine (PAXIL) 30 mg tablet TAKE 1 TABLET BY MOUTH DAILY loratadine (ALLERGY RELIEF, LORATADINE,) 10 mg tablet Take 1 tablet by mouth once daily. tiZANidine (ZANAFLEX) 4 mg tablet Take 1 tablet by mouth three times daily as needed (muscle spasms-DR LOVELACE). meloxicam (MOBIC) 7.5 mg tablet Take 1 tablet by mouth once daily. With food. calcium carbonate 500 mg calcium (1,250 mg) chewable tablet Take 1 tablet by mouth twice daily. cholecalciferol, Vitamin D3, (VITAMIN D3) 50,000 unit cap capsule Take 1 capsule by mouth once each week. levothyroxine (SYNTHROID) 75 mcg tablet TAKE 1 TABLET BY MOUTH DAILY ON EMPTY STOMACH FOR THYROID No current facility-administered medications for this visit. ALLERGIES No Known Allergies PAST SURGICAL HISTORY Procedure Laterality Date - BREAST BIOPSY - COLONOSCOP W/ OR W/O [facility] SPEC 02/17/2018 Colonoscopy - COLONOSCOPY 07/26 - HEMORRHOID;BAND LIGAT, SNGL/MUL 1986 Hemorrhoidectomy - HYSTERECTOMY HX 2000 - LIGATE FALLOPIAN TUBE 1988 Tubal ligation - PAST SURGICAL HISTORY OF 03/31/2017 attempted kyphoplasty at L5, aborted - PAST SURGICAL HISTORY OF Right 06/15/2018 hammertoe - REMOVAL ADENOIDS,PRIMARY,<12 Y/O Adenoidectomy - REMOVAL OF TONSILS,<12 Y/O Tonsillectomy - THYROIDECTOMY 2005 Physical Exam: Constitutional: Pt is a well developed 58 year old female who is alert, oriented, cooperative and in no apparent distress. OBJECTIVE: NVSI unchanged from previous visit. Dermatological: Surgical incisions to left foot are now healed without infection. No open wounds noted b/l. Musculoskeletal/Orthop aedic: Patient has no pain to palpation of b/l feet Toes 2-5 b/l are rectus with no contracture xrays of left foot reviewed. Rectus position of toes 2-5 left foot ASSESSMENT: (Z98.890) Post-operative state (primary encounter diagnosis) PLAN: 1. History and physical examination completed today. 2. Patient is s/p hammertoes correction 2-5 left foot and she had the right foot done prior to that. She is very happy with results. Her wounds have gone on to heal and she has no issues. She has xrays that show progressive fusion of left 2nd and 3rd toe. At this time, she would like to wear regular shoes. She can do this provided she does not have pain. 3. Discussed how swelling can last several months following surgery. 4. F/u prn. Raheel Mukherjee DPM Referring Provider: RAHEEL MUKHERJEE [[id number]] Allergies As of Date: 10/14/2018 (No Known Allergies) Date Reviewed: 10/14/2018 Reviewed by: Noemi Coronel RN - Fully Assessed Reason for Visit: Surgical Followup [104] Cmt: 44 days s/p L 2-5 hammertoe correction Reason For Visit History Recorded Primary Visit Diagnosis:Post-operati ve state [Z98.890] Prescriptions as of 10/14/2018 Sig: CEPHALEXIN 500 MG CAPSULE Take 1 capsule by mouth three* AMITRIPTYLINE 25 MG TABLET Take 25 mg by mouth daily at * ALBUTEROL SULFATE HFA 90 MCG/* 1 Puff three times daily. ALENDRONATE 70 MG TABLET 70 mg once each week. GABAPENTIN 300 MG CAPSULE Take 300 mg by mouth three ti* PAROXETINE 30 MG TABLET TAKE 1 TABLET BY MOUTH DAILY LORATADINE 10 MG TABLET Take 1 tablet by mouth once d* TIZANIDINE 4 MG TABLET Take 1 tablet by mouth three * MELOXICAM 7.5 MG TABLET Take 1 tablet by mouth once d* CALCIUM CARBONATE 500 MG CALC* Take 1 tablet by mouth twice * CHOLECALCIFEROL (VITAMIN D3) * Take 1 capsule by mouth once * LEVOTHYROXINE 75 MCG TABLET TAKE 1 TABLET BY MOUTH DAILY * Problem List As Of Date 10/14/2018 Noted Resolved ANXIETY STATE NOS [F41.1] Thyroid cancer (HCC) [C73] INVALID FOR* More... Family history of colon cancer [Z80.0] INVALID FOR* More... Cervical spondylosis without myelopathy [M47.81*INVALID FOR* More... 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] INVALID FOR* Lumbar spondylosis [M47.816] INVALID FOR* More... Left hand weakness [R29.898] INVALID FOR* Depression [F32.9] INVALID FOR* More... Breast lump [N63.0] INVALID FOR* More... Tobacco abuse disorder [Z72.0] INVALID FOR*08/21/2018 More... Left hip pain [M25.552] INVALID FOR* More... Insomnia [G47.00] INVALID FOR* More... Enthesopathy of hip region [M76.899] INVALID FOR* Degeneration of lumbar or lumbosacral intervert*INVALID FOR* More... Backache, unspecified [M54.9] INVALID FOR* Osteoporosis [M81.0] INVALID FOR* More... Polyp of colon [K63.5] INVALID FOR* More... Familial hypercholesterolemia [E78.01] INVALID FOR* More... Basal cell carcinoma [C44.91] INVALID FOR* More... Hypothyroidism [E03.9] INVALID FOR* More... Former smoker [Z87.891] INVALID FOR* More... Pain in left foot [M79.672] INVALID FOR* Simple chronic bronchitis (HCC) [J41.0] INVALID FOR* More... Disposition: Return if symptoms worsen or fail to improve. Follow-up and Disposition History Recorded Encounter Status:Closed by RAHEEL MUKHERJEE DPM on 10/14/18 [facility] PROGRESSon 10-14-2018 PROGRESS HNO ID: [id number] Author: Raheel Mukherjee Service: ? Author Type: Physician Type: Progress Notes Filed: 10/14/2018 10:56 AM Note Text: Follow up podiatric office visit for: Chief Complaint: This 58 year old who presents for follow up:hammertoe correction left 2nd, 3rd, 4th and 5th toes. Patient is doing very well. She states her wounds are healed. She has no pain. She is very happy with outcome from surgery. PAIN EVALUATION No data found in the last 1 encounters. No results found for: HBA1C PCP: Jessica May CNP PAST MEDICAL HISTORY Diagnosis Date - Anxiety state, unspecified - Cancer (HCC) thyroid - Depressive disorder major - Osteopenia - Osteoporosis - Unspecified hypothyroidism Hypothyroidism Current Outpatient Medications: cephALEXin (KEFLEX) 500 mg capsule Take 1 capsule by mouth three times daily. amitriptyline (ELAVIL) 25 mg tablet Take 25 mg by mouth daily at bedtime. albuterol HFA (PROVENTIL HFA, VENTOLIN HFA) 90 mcg/actuation inhaler 1 Puff three times daily. alendronate (FOSAMAX) 70 mg tablet 70 mg once each week. gabapentin (NEURONTIN) 300 mg capsule Take 300 mg by mouth three times daily. PARoxetine (PAXIL) 30 mg tablet TAKE 1 TABLET BY MOUTH DAILY loratadine (ALLERGY RELIEF, LORATADINE,) 10 mg tablet Take 1 tablet by mouth once daily. tiZANidine (ZANAFLEX) 4 mg tablet Take 1 tablet by mouth three times daily as needed (muscle spasms-DR LOVELACE). meloxicam (MOBIC) 7.5 mg tablet Take 1 tablet by mouth once daily. With food. calcium carbonate 500 mg calcium (1,250 mg) chewable tablet Take 1 tablet by mouth twice daily. cholecalciferol, Vitamin D3, (VITAMIN D3) 50,000 unit cap capsule Take 1 capsule by mouth once each week. levothyroxine (SYNTHROID) 75 mcg tablet TAKE 1 TABLET BY MOUTH DAILY ON EMPTY STOMACH FOR THYROID No current facility-administered medications for this visit. ALLERGIES No Known Allergies PAST SURGICAL HISTORY Procedure Laterality Date - BREAST BIOPSY - COLONOSCOP W/ OR W/O [facility] SPEC 02/17/2018 Colonoscopy - COLONOSCOPY 07/26 - HEMORRHOID;BAND LIGAT, SNGL/MUL 1987 Hemorrhoidectomy - HYSTERECTOMY HX 2000 - LIGATE FALLOPIAN TUBE 1988 Tubal ligation - PAST SURGICAL HISTORY OF 03/31/2017 attempted kyphoplasty at L5, aborted - PAST SURGICAL HISTORY OF Right 06/15/2018 hammertoe - REMOVAL ADENOIDS,PRIMARY,<12 Y/O Adenoidectomy - REMOVAL OF TONSILS,<12 Y/O Tonsillectomy - THYROIDECTOMY 2005 Physical Exam: Constitutional: Pt is a well developed 58 year old female who is alert, oriented, cooperative and in no apparent distress. OBJECTIVE: NVSI unchanged from previous visit. Dermatological: Surgical incisions to left foot are now healed without infection. No open wounds noted b/l. Musculoskeletal/Orthop aedic: Patient has no pain to palpation of b/l feet Toes 2-5 b/l are rectus with no contracture xrays of left foot reviewed. Rectus position of toes 2-5 left foot ASSESSMENT: (Z98.890) Post-operative state (primary encounter diagnosis) PLAN: 1. History and physical examination completed today. 2. Patient is s/p hammertoes correction 2-5 left foot and she had the right foot done prior to that. She is very happy with results. Her wounds have gone on to heal and she has no issues. She has xrays that show progressive fusion of left 2nd and 3rd toe. At this time, she would like to wear regular shoes. She can do this provided she does not have pain. 3. Discussed how swelling can last several months following surgery. 4. F/u prn. Raheel Mukherjee DPM Normal [facility] PROGRESS HNO ID: [id number] Author: Randall Harris (Rt) Service: ? Author Type: Shake Splitter Type: Progress Notes Filed: 10/14/2018 9:40 AM Note Text: Radiology Service Progress Note PATIENT NAME: Pina Ortega DATE OF SERVICE: October 14, 2018 TIME: 9:39 AM PATIENT IDENTITY VERIFICATION COMPLETED USING TWO (2) METHODS: Patient confirmed name verbally and Date of . PATIENT GENDER DATA: Female. status: : No status: NO. PATIENT RELEVANT IMPLANT DATA REVIEWED: Not Applicable RADIOLOGY DEPARTMENT: General X-ray: Exam(s) Completed: Lower Extremity X-Ray(s): Foot, Left and Wt. Bearing: PERIPHERAL IV DATA: Not applicable SIGNED BY: RT Steven October 14, 2018 9:39 AM Normal [facility] PROGRESS HNO ID: [id number] Author: Noemi Coronel RN Service: ? Author Type: ? Type: Progress Notes Filed: 10/14/2018 10:56 AM Note Text: AMB ROOMING INTAKE FLOWSHEET DATA Patient presents with: Surgical Followup: 44 days s/p L 2-5 hammertoe correction Continues to wear post op shoe. She has new xrays to review. Normal [facility] XR FOOT 3V AP/LAT/OBL LTon 0 10-14-2018 XR FOOT 3V AP/LAT/OBL LT * * *Final Report* * * DATE OF EXAM: Oct 14 2018 9:36AM [id number] - XR FOOT 3V AP/LAT/OBL LT / PROCEDURE REASON: multiple diagnoses * * * * Physician Interpretation * * * * HISTORY: Post-operative state Hammertoe of left foot . follow up to left foot hammer toe revision TECHNIQUE: XR FOOT 3V AP/LAT/OBL LT Laterality: LEFT Number of different views (projections): 3 COMPARISON: 09/30/2018 RESULT: Interval removal of the second digit K wire. Postsurgical change in the fifth proximal phalanx again noted. No fracture. Irregularity of the cortices of the second and third digit phalanges likely from hammertoe correction/postsurgica l. Mild diffuse soft tissue swelling bilaterally without focal soft tissue swelling. Joint spaces relatively preserved. Pes planus. IMPRESSION: NORMAL POSTOPERATIVE FINDINGS DESCRIBED Strategic Planner[facility] Transcribe Date/Time: Oct 15 2018 1:22P Dictated by : AIDAN COLLIER MD This examination was interpreted and the report reviewed and electronically signed by: AIDAN COLLIER MD on Oct 15 2018 2:08PM EST [id number] Normal [facility] PROGRESSon 10-01-2018 PROGRESS HNO ID: [id number] Author: Raheel Mukherjee Service: ? Author Type: Physician Type: Progress Notes Filed: 10/01/2018 7:29 AM Note Text: Follow up podiatric office visit for: Chief Complaint: This 58 year old who presents for follow up:left 2nd-5th hammertoe reconstruction. Patient presents to clinic for follow-up left 2nd-5th hammertoe reconstruction. She states that recently she stubbed her left 2nd toe thereby causing the pin to be pushed forward into her toe. Since this injury, she has pain and swelling of left 2nd toe. She states there is some redness to the toe as well. She states the pain is 9/10. She denies n/v/f/c. PAIN EVALUATION 09/30/2018 Pain Level: 9 Pain Location: Foot-Left Description: Sharp;Dull Duration Amount of Time: 3 Duration Units: Days Frequency: Continuous Intervention: Relaxation No results found for: HBA1C PCP: Jessica May CNP PAST MEDICAL HISTORY Diagnosis Date - Anxiety state, unspecified - Cancer (HCC) thyroid - Depressive disorder major - Osteopenia - Osteoporosis - Unspecified hypothyroidism Hypothyroidism Current Outpatient Medications: amitriptyline (ELAVIL) 25 mg tablet Take 25 mg by mouth daily at bedtime. albuterol HFA (PROVENTIL HFA, VENTOLIN HFA) 90 mcg/actuation inhaler 1 Puff three times daily. alendronate (FOSAMAX) 70 mg tablet 70 mg once each week. gabapentin (NEURONTIN) 300 mg capsule Take 300 mg by mouth three times daily. PARoxetine (PAXIL) 30 mg tablet TAKE 1 TABLET BY MOUTH DAILY loratadine (ALLERGY RELIEF, LORATADINE,) 10 mg tablet Take 1 tablet by mouth once daily. tiZANidine (ZANAFLEX) 4 mg tablet Take 1 tablet by mouth three times daily as needed (muscle spasms-DR LOVELACE). meloxicam (MOBIC) 7.5 mg tablet Take 1 tablet by mouth once daily. With food. calcium carbonate 500 mg calcium (1,250 mg) chewable tablet Take 1 tablet by mouth twice daily. cholecalciferol, Vitamin D3, (VITAMIN D3) 50,000 unit cap capsule Take 1 capsule by mouth once each week. levothyroxine (SYNTHROID) 75 mcg tablet TAKE 1 TABLET BY MOUTH DAILY ON EMPTY STOMACH FOR THYROID cephALEXin (KEFLEX) 500 mg capsule Take 1 capsule by mouth three times daily. No current facility-administered medications for this visit. ALLERGIES No Known Allergies PAST SURGICAL HISTORY Procedure Laterality Date - BREAST BIOPSY - COLONOSCOP W/ OR W/O [facility] SPEC 02/17/2018 Colonoscopy - COLONOSCOPY 07/26 - HEMORRHOID;BAND LIGAT, SNGL/MUL 1986 Hemorrhoidectomy - HYSTERECTOMY HX 2000 - LIGATE FALLOPIAN TUBE 1988 Tubal ligation - PAST SURGICAL HISTORY OF 03/31/2017 attempted kyphoplasty at L5, aborted - PAST SURGICAL HISTORY OF Right 06/15/2018 hammertoe - REMOVAL ADENOIDS,PRIMARY,<12 Y/O Adenoidectomy - REMOVAL OF TONSILS,<12 Y/O Tonsillectomy - THYROIDECTOMY 2005 Physical Exam: Constitutional: Pt is a well developed 58 year old female who is alert, oriented, cooperative and in no apparent distress. OBJECTIVE: NVSI unchanged from previous visit. Dermatological: Surgical incision to left 2nd and 3rd toe remain healed. The wound dehiscence of left 3rd and 5th toe show healing without infection. Musculoskeletal/Orthop aedic: Patient has pain to palpation of left 2nd toe. There is visible swelling to left 2nd toe. Pin of left 2nd toe dues appear to have been pushed in proximally and is now abutting the distal skin. No necrosis of toe is noted. xrays of left foot reviewed . There appears to be proximal migration of pin. There is what appears to be some hyperextension of distal phalanx on middle phalanx. There is incomplete fusion of left 2nd and 3rd toe. No fracture is present. ASSESSMENT: (Z98.890) Post-operative state (primary encounter diagnosis) (M20.42) Hammertoe of left foot PLAN: 1. History and physical examination completed today. 2. Patient was examined and informed of current findings. 3. She is s/p hammertoe surgery now complicated with stubbing injury. I see no fracture on xray. There is proximal migration of pin. The toe does not appear fused radiographically but clinically, the toe is rectus and stiff. I am going to pull the wire today because of her pain and I feel that with the proximal migration of pin, it does increase chances of infection. Patient elected for pin removal. 4. I want patient to continue with the surgical shoe. She will continue with local wound care to all toes until wounds healed 5. I will place patient on prophylactic antibiotic as precaution. 6. F/u in 1.5 weeks or sooner if problems arise. 7. She needs to be more careful. Raheel Mukherjee DPM Normal [facility] CNOVon 09-30-2018 CNOV Office Visit (PODIWS ) PINA ORTEGA ([id number]) 1960 F Date Time Provider Department 09/30/18 2:00 PM RAHEEL MUKHERJEE During your visit today, we recorded the following information about you: Liset Diaz Kim 10/01/2018 7:29 AM Signed AMB ROOMING INTAKE FLOWSHEET DATA Risk Screening Do you have concerns about personal safety or safety in the home?: No Pain Pain Level: 9 Pain Location: Foot-Left Description: Sharp, Dull Duration Amount of Time: 3 Duration Units: Days Frequency: Continuous Intervention: Relaxation Patient presents to clinic 30 days s/p L 2nd, 3rd, 4th , and 5th hammertoe correction. Patient states she jammed foot into oven on Friday and believes pin is farther in foot. Redness and swelling present. Raheel Mukherjee DPM 10/01/2018 7:29 AM Signed Follow up podiatric office visit for: Chief Complaint: This 58 year old who presents for follow up:left 2nd-5th hammertoe reconstruction. Patient presents to clinic for follow-up left 2nd-5th hammertoe reconstruction. She states that recently she stubbed her left 2nd toe thereby causing the pin to be pushed forward into her toe. Since this injury, she has pain and swelling of left 2nd toe. She states there is some redness to the toe as well. She states the pain is 9/10. She denies n/v/f/c. PAIN EVALUATION 09/30/2018 Pain Level: 9 Pain Location: Foot-Left Description: Sharp;Dull Duration Amount of Time: 3 Duration Units: Days Frequency: Continuous Intervention: Relaxation No results found for: HBA1C PCP: Jessica May CNP PAST MEDICAL HISTORY Diagnosis Date - Anxiety state, unspecified - Cancer (HCC) thyroid - Depressive disorder major - Osteopenia - Osteoporosis - Unspecified hypothyroidism Hypothyroidism Current Outpatient Medications: amitriptyline (ELAVIL) 25 mg tablet Take 25 mg by mouth daily at bedtime. albuterol HFA (PROVENTIL HFA, VENTOLIN HFA) 90 mcg/actuation inhaler 1 Puff three times daily. alendronate (FOSAMAX) 70 mg tablet 70 mg once each week. gabapentin (NEURONTIN) 300 mg capsule Take 300 mg by mouth three times daily. PARoxetine (PAXIL) 30 mg tablet TAKE 1 TABLET BY MOUTH DAILY loratadine (ALLERGY RELIEF, LORATADINE,) 10 mg tablet Take 1 tablet by mouth once daily. tiZANidine (ZANAFLEX) 4 mg tablet Take 1 tablet by mouth three times daily as needed (muscle spasms-DR LOVELACE). meloxicam (MOBIC) 7.5 mg tablet Take 1 tablet by mouth once daily. With food. calcium carbonate 500 mg calcium (1,250 mg) chewable tablet Take 1 tablet by mouth twice daily. cholecalciferol, Vitamin D3, (VITAMIN D3) 50,000 unit cap capsule Take 1 capsule by mouth once each week. levothyroxine (SYNTHROID) 75 mcg tablet TAKE 1 TABLET BY MOUTH DAILY ON EMPTY STOMACH FOR THYROID cephALEXin (KEFLEX) 500 mg capsule Take 1 capsule by mouth three times daily. No current facility-administered medications for this visit. ALLERGIES No Known Allergies PAST SURGICAL HISTORY Procedure Laterality Date - BREAST BIOPSY - COLONOSCOP W/ OR W/O [facility] SPEC 02/17/2018 Colonoscopy - COLONOSCOPY 07/26 - HEMORRHOID;BAND LIGAT, SNGL/MUL 1986 Hemorrhoidectomy - HYSTERECTOMY HX 2000 - LIGATE FALLOPIAN TUBE 1988 Tubal ligation - PAST SURGICAL HISTORY OF 03/31/2017 attempted kyphoplasty at L5, aborted - PAST SURGICAL HISTORY OF Right 06/15/2018 hammertoe - REMOVAL ADENOIDS,PRIMARY,<12 Y/O Adenoidectomy - REMOVAL OF TONSILS,<12 Y/O Tonsillectomy - THYROIDECTOMY 2005 Physical Exam: Constitutional: Pt is a well developed 58 year old female who is alert, oriented, cooperative and in no apparent distress. OBJECTIVE: NVSI unchanged from previous visit. Dermatological: Surgical incision to left 2nd and 3rd toe remain healed. The wound dehiscence of left 3rd and 5th toe show healing without infection. Musculoskeletal/Orthop aedic: Patient has pain to palpation of left 2nd toe. There is visible swelling to left 2nd toe. Pin of left 2nd toe dues appear to have been pushed in proximally and is now abutting the distal skin. No necrosis of toe is noted. xrays of left foot reviewed . There appears to be proximal migration of pin. There is what appears to be some hyperextension of distal phalanx on middle phalanx. There is incomplete fusion of left 2nd and 3rd toe. No fracture is present. ASSESSMENT: (Z98.890) Post-operative state (primary encounter diagnosis) (M20.42) Hammertoe of left foot PLAN: 1. History and physical examination completed today. 2. Patient was examined and informed of current findings. 3. She is s/p hammertoe surgery now complicated with stubbing injury. I see no fracture on xray. There is proximal migration of pin. The toe does not appear fused radiographically but clinically, the toe is rectus and stiff. I am going to pull the wire today because of her pain and I feel that with the proximal migration of pin, it does increase chances of infection. Patient elected for pin removal. 4. I want patient to continue with the surgical shoe. She will continue with local wound care to all toes until wounds healed 5. I will place patient on prophylactic antibiotic as precaution. 6. F/u in 1.5 weeks or sooner if problems arise. 7. She needs to be more careful. Raheel Mukherjee DPM Referring Provider: RAHEEL MUKHERJEE [[id number]] Allergies As of Date: 09/30/2018 (No Known Allergies) Date Reviewed: 09/30/2018 Reviewed by: Liset Diaz Ma - Fully Assessed Reason for Visit: Established Patient [175] Primary Visit Diagnosis:Post-operati ve state [Z98.890] Other Visit Diagnosis:Hammertoe of left foot [M20.42] Order(s):cephALEXin (KEFLEX) 500 mg capsuleTake 1 capsule by mouth three times daily.Disp: 21 capsuleRfl: 0 XR FOOT GENERAL 3V AP/LAT/OBL LT [[id number]] Order #: [id number] FUTURE Prescriptions as of 09/30/2018 Sig: AMITRIPTYLINE 25 MG TABLET Take 25 mg by mouth daily at * ALBUTEROL SULFATE HFA 90 MCG/* 1 Puff three times daily. ALENDRONATE 70 MG TABLET 70 mg once each week. GABAPENTIN 300 MG CAPSULE Take 300 mg by mouth three ti* PAROXETINE 30 MG TABLET TAKE 1 TABLET BY MOUTH DAILY LORATADINE 10 MG TABLET Take 1 tablet by mouth once d* TIZANIDINE 4 MG TABLET Take 1 tablet by mouth three * MELOXICAM 7.5 MG TABLET Take 1 tablet by mouth once d* CALCIUM CARBONATE 500 MG CALC* Take 1 tablet by mouth twice * CHOLECALCIFEROL (VITAMIN D3) * Take 1 capsule by mouth once * LEVOTHYROXINE 75 MCG TABLET TAKE 1 TABLET BY MOUTH DAILY * CEPHALEXIN 500 MG CAPSULE Take 1 capsule by mouth three* Problem List As Of Date 09/30/2018 Noted Resolved ANXIETY STATE NOS [F41.1] Thyroid cancer (HCC) [C73] INVALID FOR* More... Family history of colon cancer [Z80.0] INVALID FOR* More... Cervical spondylosis without myelopathy [M47.81*INVALID FOR* More... 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] INVALID FOR* Lumbar spondylosis [M47.816] INVALID FOR* More... Left hand weakness [R29.898] INVALID FOR* Depression [F32.9] INVALID FOR* More... Breast lump [N63.0] INVALID FOR* More... Tobacco abuse disorder [Z72.0] INVALID FOR*08/21/2018 More... Left hip pain [M25.552] INVALID FOR* More... Insomnia [G47.00] INVALID FOR* More... Enthesopathy of hip region [M76.899] INVALID FOR* Degeneration of lumbar or lumbosacral intervert*INVALID FOR* More... Backache, unspecified [M54.9] INVALID FOR* Osteoporosis [M81.0] INVALID FOR* More... Polyp of colon [K63.5] INVALID FOR* More... Familial hypercholesterolemia [E78.01] INVALID FOR* More... Basal cell carcinoma [C44.91] INVALID FOR* More... Hypothyroidism [E03.9] INVALID FOR* More... Former smoker [Z87.891] INVALID FOR* More... Pain in left foot [M79.672] INVALID FOR* Simple chronic bronchitis (HCC) [J41.0] INVALID FOR* More... Prescriptions ordered this encounter Disp Refills Start End CEPHALEXIN 500 MG CAPSULE 21 c* 0 09/30/2018 Route: ORAL Sig: Take 1 capsule by mouth three times daily. Disposition: Return in about 2 weeks (around 10/14/2018) for 2 week F/U Toe check. Follow-up and Disposition History Recorded Encounter Status:Closed by RAHEEL MUKHERJEE DPM on 10/01/18 [facility] PROGRESSon 09-30-2018 PROGRESS HNO ID: [id number] Author: Liset Diaz Ma Service: ? Author Type: ? Type: Progress Notes Filed: 10/01/2018 7:29 AM Note Text: AMB ROOMING INTAKE FLOWSHEET DATA Risk Screening Do you have concerns about personal safety or safety in the home?: No Pain Pain Level: 9 Pain Location: Foot-Left Description: Sharp, Dull Duration Amount of Time: 3 Duration Units: Days Frequency: Continuous Intervention: Relaxation Patient presents to clinic 30 days s/p L 2nd, 3rd, 4th , and 5th hammertoe correction. Patient states she jammed foot into oven on Friday and believes pin is farther in foot. Redness and swelling present. [facility] PROGRESS HNO ID: [id number] Author: Ida () Randall Roper Service: ? Author Type: Shake Splitter Type: Progress Notes Filed: 09/30/2018 1:37 PM Note Text: Radiology Service Progress Note PATIENT NAME: Pina Ortega DATE OF SERVICE: September 30, 2018 TIME: 1:36 PM PATIENT IDENTITY VERIFICATION COMPLETED USING TWO (2) METHODS: Patient confirmed name verbally and Date of . PATIENT GENDER DATA: Female. status: : No status: NO. PATIENT RELEVANT IMPLANT DATA REVIEWED: Not Applicable RADIOLOGY DEPARTMENT: General X-ray: Exam(s) Completed: Lower Extremity X-Ray(s): Foot, Left and Wt. Bearing: PERIPHERAL IV DATA: Not applicable SIGNED BY: RT Steven September 30, 2018 1:36 PM [facility] XR FOOT 3V AP/LAT/OBL LTon 0 09-30-2018 XR FOOT 3V AP/LAT/OBL LT * * *Final Report* * * DATE OF EXAM: Sep 30 2018 1:35PM [id number] - XR FOOT 3V AP/LAT/OBL LT / PROCEDURE REASON: multiple diagnoses * * * * Physician Interpretation * * * * Clinical Information: Postop, tae Three views of the left foot were obtained. Comparison: 09/18/2018 K wire is again noted within the second toe to the level of the metatarsophalangeal joint. Interval removal of K wire from the third toe. Prior resection of the head of the fifth proximal phalanx. There is no fracture or dislocation. Joint spaces are maintained. No lytic or blastic lesions identified. Pes planus deformity. No soft tissue abnormalities are seen. IMPRESSION: Interval removal of K wire from the third digit. Otherwise stable appearance of the left foot with no acute abnormality. Strategic Planner: PSCB Transcribe Date/Time: Oct 01 2018 3:00P Dictated by : DHRUV SHAVER MD This examination was interpreted and the report reviewed and electronically signed by: DHRUV SHAVER MD on Oct 01 2018 3:02PM EST [id number] [facility] CNOVon 09-25-2018 CNOV Office Visit (PODIWS ) PINA ORTEGA ([id number]) 1960 F Date Time Provider Department 09/25/18 10:00 AM RAHEEL MUKHERJEE During your visit today, we recorded the following information about you: Liset Diaz Ma 09/25/2018 10:18 AM Signed AMB ROOMING INTAKE FLOWSHEET DATA Risk Screening Do you have concerns about personal safety or safety in the home?: No Patient presents to clinic for 25 days s/p L hammertoe correction PIPJ fusion L 2nd and 3rd, L 4th flexor tenotomy and L 5th derotational arthroplasty. Patient states he dog pull pin out of L 3rd toe yesterday morning. No redness present around site. Patient states she has no pain. Liset Diaz Ma 09/25/2018 10:10 AM Signed Apply neosporin and band aid to Left 3rd and 4th toes. Raheel Mukherjee DPM 09/25/2018 10:18 AM Signed Follow up podiatric office visit for: Chief Complaint: This 58 year old who presents for follow up:post-op left 2nd, 3rd, 4th and 5th toe hammertoe correction. Patient presents to clinic for follow-up left 2-5 toe hammertoe correction. Patient is wearing regular shoes and does not have bandage on toe. The wire of 2nd toe is intact. The wire on 3rd toe was removed by [email or web address] chain. She denies pain. She denies n/v/f/c. PAIN EVALUATION No data found. No results found for: HBA1C PCP: Jessica May CNP PAST MEDICAL HISTORY Diagnosis Date - Anxiety state, unspecified - Cancer (HCC) thyroid - Depressive disorder major - Osteopenia - Osteoporosis - Unspecified hypothyroidism Hypothyroidism Current Outpatient Medications: amitriptyline (ELAVIL) 25 mg tablet Take 25 mg by mouth daily at bedtime. albuterol HFA (PROVENTIL HFA, VENTOLIN HFA) 90 mcg/actuation inhaler 1 Puff three times daily. alendronate (FOSAMAX) 70 mg tablet 70 mg once each week. gabapentin (NEURONTIN) 300 mg capsule Take 300 mg by mouth three times daily. PARoxetine (PAXIL) 30 mg tablet TAKE 1 TABLET BY MOUTH DAILY loratadine (ALLERGY RELIEF, LORATADINE,) 10 mg tablet Take 1 tablet by mouth once daily. tiZANidine (ZANAFLEX) 4 mg tablet Take 1 tablet by mouth three times daily as needed (muscle spasms-DR LOVELACE). meloxicam (MOBIC) 7.5 mg tablet Take 1 tablet by mouth once daily. With food. calcium carbonate 500 mg calcium (1,250 mg) chewable tablet Take 1 tablet by mouth twice daily. cholecalciferol, Vitamin D3, (VITAMIN D3) 50,000 unit cap capsule Take 1 capsule by mouth once each week. levothyroxine (SYNTHROID) 75 mcg tablet TAKE 1 TABLET BY MOUTH DAILY ON EMPTY STOMACH FOR THYROID No current facility-administered medications for this visit. ALLERGIES No Known Allergies PAST SURGICAL HISTORY Procedure Laterality Date - BREAST BIOPSY - [facility]COP [facility] 02/17/2018 Colonoscopy - COLONOSCOPY 07/26 - HEMORRHOID;BAND LIGAT, SNGL/MUL 1986 Hemorrhoidectomy - HYSTERECTOMY HX 2000 - LIGATE FALLOPIAN TUBE 1988 Tubal ligation - PAST SURGICAL HISTORY OF 03/31/2017 attempted kyphoplasty at L5, aborted - PAST SURGICAL HISTORY OF Right 06/15/2018 hammertoe - REMOVAL ADENOIDS,PRIMARY,<12 Y/O Adenoidectomy - REMOVAL OF TONSILS,<12 Y/O Tonsillectomy - THYROIDECTOMY 2005 Physical Exam: Constitutional: Pt is a well developed 58 year old female who is alert, oriented, cooperative and in no apparent distress. OBJECTIVE: NVSI unchanged from previous visit. Dermatological: Nails 1-5 b/l are normal. Webspaces clean and dry 1-4 b/l. Skin appears well hydrated and supple. good color, texture, turgor. Incisions to left 2nd and 4th toe are healed without infection. Dry eschar without infection to left 3rd and left 5th toe. No wounds to right foot Musculoskeletal/Orthop aedic: Patient has no pain to palpation of b/l feet Toes 2-5 b/l are rectus without pain No calf pain present. No signs of infection noted to left 2nd, 3rd 4th and 5th toe No drainage or erythema present ASSESSMENT: (Z98.890) Post-operative state (primary encounter diagnosis) (M20.42) Hammertoe of left foot PLAN: 1. Patient was examined and informed of current findings. She is 25 days s/p left 2nd and 3rd dipj fusion, left 4th toe flexor tenotomy and left 5th toe derotational arthroplasty. The incision of left 2nd and 4th toe are healed. The incision of left 3rd and 5th toe has noninfected eschar. The eschar was debrided of left 5th toe. She refused debridement of left 3rd toe. I want her to apply neosporin and band aid to involved toes daily until eschar heals. She was informed until these heal, she is at risk of infection. No infection currently. 2. Patient is not wearing post-op shoe. I recommend she do so. 3. Wire on 3rd toe was removed by [employer] chain of dog. Foot appears stable. I will keep the 2nd toe k-wire intact and plan to remove next week 4. If patient has any issues, she is to contact the office immediately. 5. F/u in 1 week Raheel Mukherjee DPM Referring Provider: RAHEEL MUKHERJEE [[id number]] Allergies As of Date: 09/25/2018 (No Known Allergies) Date Reviewed: 09/25/2018 Reviewed by: Liset Diaz Ma - Fully Assessed Reason for Visit: Established Patient [175] Surgical Followup [104] Primary Visit Diagnosis:Post-operati ve state [Z98.890] Other Visit Diagnosis:Hammertoe of left foot [M20.42] Order(s):XR FOOT GENERAL 3V AP/LAT/OBL LT [[id number]] Order #: [id number] FUTURE Prescriptions as of 09/25/2018 Sig: AMITRIPTYLINE 25 MG TABLET Take 25 mg by mouth daily at * ALBUTEROL SULFATE HFA 90 MCG/* 1 Puff three times daily. ALENDRONATE 70 MG TABLET 70 mg once each week. GABAPENTIN 300 MG CAPSULE Take 300 mg by mouth three ti* PAROXETINE 30 MG TABLET TAKE 1 TABLET BY MOUTH DAILY LORATADINE 10 MG TABLET Take 1 tablet by mouth once d* TIZANIDINE 4 MG TABLET Take 1 tablet by mouth three * MELOXICAM 7.5 MG TABLET Take 1 tablet by mouth once d* CALCIUM CARBONATE 500 MG CALC* Take 1 tablet by mouth twice * CHOLECALCIFEROL (VITAMIN D3) * Take 1 capsule by mouth once * LEVOTHYROXINE 75 MCG TABLET TAKE 1 TABLET BY MOUTH DAILY * Problem List As Of Date 09/25/2018 Noted Resolved ANXIETY STATE NOS [F41.1] Thyroid cancer (HCC) [C73] INVALID FOR* More... Family history of colon cancer [Z80.0] INVALID FOR* More... Cervical spondylosis without myelopathy [M47.81*INVALID FOR* More... 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] INVALID FOR* Lumbar spondylosis [M47.816] INVALID FOR* More... Left hand weakness [R29.898] INVALID FOR* Depression [F32.9] INVALID FOR* More... Breast lump [N63.0] INVALID FOR* More... Tobacco abuse disorder [Z72.0] INVALID FOR*08/21/2018 More... Left hip pain [M25.552] INVALID FOR* More... Insomnia [G47.00] INVALID FOR* More... Enthesopathy of hip region [M76.899] INVALID FOR* Degeneration of lumbar or lumbosacral intervert*INVALID FOR* More... Backache, unspecified [M54.9] INVALID FOR* Osteoporosis [M81.0] INVALID FOR* More... Polyp of colon [K63.5] INVALID FOR* More... Familial hypercholesterolemia [E78.01] INVALID FOR* More... Basal cell carcinoma [C44.91] INVALID FOR* More... Hypothyroidism [E03.9] INVALID FOR* More... Former smoker [Z87.891] INVALID FOR* More... Pain in left foot [M79.672] INVALID FOR* Simple chronic bronchitis (HCC) [J41.0] INVALID FOR* More... Other instructions from your clinician: Apply neosporin and band aid to Left 3rd and 4th toes. Disposition: Return in about 1 week (around 10/02/2018) for 32 days s/p L hammertoe coorection L 2nd and 3rd PIPJ fusion, flexortenotomy, and 5th derotational a. Follow-up and Disposition History Recorded Encounter Status:Closed by RAHEEL MUKHERJEE DPM on 09/25/18 [facility] PROGRESSon 09-25-2018 PROGRESS HNO ID: [id number] Author: Raheel Mukherjee Service: ? Author Type: Physician Type: Progress Notes Filed: 09/25/2018 10:18 AM Note Text: Follow up podiatric office visit for: Chief Complaint: This 58 year old who presents for follow up:post-op left 2nd, 3rd, 4th and 5th toe hammertoe correction. Patient presents to clinic for follow-up left 2-5 toe hammertoe correction. Patient is wearing regular shoes and does not have bandage on toe. The wire of 2nd toe is intact. The wire on 3rd toe was removed by [email or web address] chain. She denies pain. She denies n/v/f/c. PAIN EVALUATION No data found. No results found for: HBA1C PCP: Jessica May CNP PAST MEDICAL HISTORY Diagnosis Date - Anxiety state, unspecified - Cancer (HCC) thyroid - Depressive disorder major - Osteopenia - Osteoporosis - Unspecified hypothyroidism Hypothyroidism Current Outpatient Medications: amitriptyline (ELAVIL) 25 mg tablet Take 25 mg by mouth daily at bedtime. albuterol HFA (PROVENTIL HFA, VENTOLIN HFA) 90 mcg/actuation inhaler 1 Puff three times daily. alendronate (FOSAMAX) 70 mg tablet 70 mg once each week. gabapentin (NEURONTIN) 300 mg capsule Take 300 mg by mouth three times daily. PARoxetine (PAXIL) 30 mg tablet TAKE 1 TABLET BY MOUTH DAILY loratadine (ALLERGY RELIEF, LORATADINE,) 10 mg tablet Take 1 tablet by mouth once daily. tiZANidine (ZANAFLEX) 4 mg tablet Take 1 tablet by mouth three times daily as needed (muscle spasms-DR LOVELACE). meloxicam (MOBIC) 7.5 mg tablet Take 1 tablet by mouth once daily. With food. calcium carbonate 500 mg calcium (1,250 mg) chewable tablet Take 1 tablet by mouth twice daily. cholecalciferol, Vitamin D3, (VITAMIN D3) 50,000 unit cap capsule Take 1 capsule by mouth once each week. levothyroxine (SYNTHROID) 75 mcg tablet TAKE 1 TABLET BY MOUTH DAILY ON EMPTY STOMACH FOR THYROID No current facility-administered medications for this visit. ALLERGIES No Known Allergies PAST SURGICAL HISTORY Procedure Laterality Date - BREAST BIOPSY - COLONOSCOP W/ OR W/O [facility] SPEC 02/17/2018 Colonoscopy - COLONOSCOPY 07/26 - HEMORRHOID;BAND LIGAT, SNGL/MUL 1986 Hemorrhoidectomy - HYSTERECTOMY HX 2000 - LIGATE FALLOPIAN TUBE 1988 Tubal ligation - PAST SURGICAL HISTORY OF 03/31/2017 attempted kyphoplasty at L5, aborted - PAST SURGICAL HISTORY OF Right 06/15/2018 hammertoe - REMOVAL ADENOIDS,PRIMARY,<12 Y/O Adenoidectomy - REMOVAL OF TONSILS,<12 Y/O Tonsillectomy - THYROIDECTOMY 2005 Physical Exam: Constitutional: Pt is a well developed 58 year old female who is alert, oriented, cooperative and in no apparent distress. OBJECTIVE: NVSI unchanged from previous visit. Dermatological: Nails 1-5 b/l are normal. Webspaces clean and dry 1-4 b/l. Skin appears well hydrated and supple. good color, texture, turgor. Incisions to left 2nd and 4th toe are healed without infection. Dry eschar without infection to left 3rd and left 5th toe. No wounds to right foot Musculoskeletal/Orthop aedic: Patient has no pain to palpation of b/l feet Toes 2-5 b/l are rectus without pain No calf pain present. No signs of infection noted to left 2nd, 3rd 4th and 5th toe No drainage or erythema present ASSESSMENT: (Z98.890) Post-operative state (primary encounter diagnosis) (M20.42) Hammertoe of left foot PLAN: 1. Patient was examined and informed of current findings. She is 25 days s/p left 2nd and 3rd dipj fusion, left 4th toe flexor tenotomy and left 5th toe derotational arthroplasty. The incision of left 2nd and 4th toe are healed. The incision of left 3rd and 5th toe has noninfected eschar. The eschar was debrided of left 5th toe. She refused debridement of left 3rd toe. I want her to apply neosporin and band aid to involved toes daily until eschar heals. She was informed until these heal, she is at risk of infection. No infection currently. 2. Patient is not wearing post-op shoe. I recommend she do so. 3. Wire on 3rd toe was removed by [employer] chain of dog. Foot appears stable. I will keep the 2nd toe k-wire intact and plan to remove next week 4. If patient has any issues, she is to contact the office immediately. 5. F/u in 1 week Raheel Mukherjee DPM [facility] PROGRESS HNO ID: [id number] Author: Liset Diaz Ma Service: ? Author Type: ? Type: Progress Notes Filed: 09/25/2018 10:18 AM Note Text: AMB ROOMING INTAKE FLOWSHEET DATA Risk Screening Do you have concerns about personal safety or safety in the home?: No Patient presents to clinic for 25 days s/p L hammertoe correction PIPJ fusion L 2nd and 3rd, L 4th flexor tenotomy and L 5th derotational arthroplasty. Patient states he dog pull pin out of L 3rd toe yesterday morning. No redness present around site. Patient states she has no pain. [facility] CNOVon 09-18-2018 CNOV Office Visit (PODIWS ) PINA ORTEGA ([id number]) 1960 F Date Time Provider Department 09/18/18 10:15 AM RAHEEL MUKHERJEE During your visit today, we recorded the following information about you: Liset Diaz Ma 09/18/2018 11:26 AM Signed AMB ROOMING INTAKE FLOWSHEET DATA Risk Screening Do you have concerns about personal safety or safety in the home?: No Patient presents to clinic for 18 days s/p L hammertoe correction PIPJ fusion, L 2nd and 3rd flexortenotomy, and L 5th derotational arthroplasty. Patient states she has no pain. No redness present around sutures. Raheel Mukherjee DPM 09/18/2018 11:26 AM Signed DOS: 08/31/18 POD: 18 POV: 2 Surgical side: Left. This 58 year old presents post op left 2nd and 3rd dipj fusion, left 4th flexor tenotomy and left 5th derotational arthroplasty Pain level: 0/10 Vomiting, fever, chills, shortness of breath: no Pain Control: n/a Weightbearing status: Full weight bearing. Patient missed last appointment because of admission to hospital for migraine. Objective: Incision site is well coapted with no evidence of dehiscence. No erythema is noted. mild edema surrounding surgical site. No drainage. No lymphadenopathy. No lymphangitis. No surrounding cellulitis. Surgical incision is macerated to left 5th toe Patient has no pain to palpation of left calf. Negative Baires's test. Assessment: (Z98.890) Post-operative state (primary encounter diagnosis) Plan: Patient was examined and informed of current findings Suture was removed today. There is no dehiscence, however, there is maceration of left 5th toe and I feel this is due to patient applying band aids. I want patient to apply betadine and she can use steres if necessary. She was informed on how to apply but I will hold on steres until maceration improves. I will order xrays today. Patient very pleased with progress. Offered antibiotic as precaution but she declined. F/u in 1 week Raheel Mukherjee DPM Referring Provider: RAHEEL MUKHERJEE [[id number]] Allergies As of Date: 09/18/2018 (No Known Allergies) Date Reviewed: 09/18/2018 Reviewed by: Liset Diaz Ma - Fully Assessed Reason for Visit: Established Patient [175] Primary Visit Diagnosis:Post-operati ve state [Z98.890] Order(s):XR FOOT GENERAL 3V AP/LAT/OBL LT [[id number]] Order #: [id number] FUTURE Prescriptions as of 09/18/2018 Sig: AMITRIPTYLINE 25 MG TABLET Take 25 mg by mouth daily at * ALBUTEROL SULFATE HFA 90 MCG/* 1 Puff three times daily. ALENDRONATE 70 MG TABLET 70 mg once each week. GABAPENTIN 300 MG CAPSULE Take 300 mg by mouth three ti* PAROXETINE 30 MG TABLET TAKE 1 TABLET BY MOUTH DAILY LORATADINE 10 MG TABLET Take 1 tablet by mouth once d* TIZANIDINE 4 MG TABLET Take 1 tablet by mouth three * MELOXICAM 7.5 MG TABLET Take 1 tablet by mouth once d* CALCIUM CARBONATE 500 MG CALC* Take 1 tablet by mouth twice * CHOLECALCIFEROL (VITAMIN D3) * Take 1 capsule by mouth once * LEVOTHYROXINE 75 MCG TABLET TAKE 1 TABLET BY MOUTH DAILY * Problem List As Of Date 09/18/2018 Noted Resolved ANXIETY STATE NOS [F41.1] Thyroid cancer (HCC) [C73] INVALID FOR* More... Family history of colon cancer [Z80.0] INVALID FOR* More... Cervical spondylosis without myelopathy [M47.81*INVALID FOR* More... 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] INVALID FOR* Lumbar spondylosis [M47.816] INVALID FOR* More... Left hand weakness [R29.898] INVALID FOR* Depression [F32.9] INVALID FOR* More... Breast lump [N63.0] INVALID FOR* More... Tobacco abuse disorder [Z72.0] INVALID FOR*08/21/2018 More... Left hip pain [M25.552] INVALID FOR* More... Insomnia [G47.00] INVALID FOR* More... Enthesopathy of hip region [M76.899] INVALID FOR* Degeneration of lumbar or lumbosacral intervert*INVALID FOR* More... Backache, unspecified [M54.9] INVALID FOR* Osteoporosis [M81.0] INVALID FOR* More... Polyp of colon [K63.5] INVALID FOR* More... Familial hypercholesterolemia [E78.01] INVALID FOR* More... Basal cell carcinoma [C44.91] INVALID FOR* More... Hypothyroidism [E03.9] INVALID FOR* More... Former smoker [Z87.891] INVALID FOR* More... Pain in left foot [M79.672] INVALID FOR* Simple chronic bronchitis (HCC) [J41.0] INVALID FOR* More... Encounter Status:Closed by RAHEEL MUKHERJEE DPM on 09/18/18 [facility] PROGRESSon 09-18-2018 PROGRESS HNO ID: [id number] Author: Raheel Mukherjee Service: ? Author Type: Physician Type: Progress Notes Filed: 09/18/2018 11:26 AM Note Text: DOS: 08/31/18 POD: 18 POV: 2 Surgical side: Left. This 58 year old presents post op left 2nd and 3rd dipj fusion, left 4th flexor tenotomy and left 5th derotational arthroplasty Pain level: 0/10 Vomiting, fever, chills, shortness of breath: no Pain Control: n/a Weightbearing status: Full weight bearing. Patient missed last appointment because of admission to hospital for migraine. Objective: Incision site is well coapted with no evidence of dehiscence. No erythema is noted. mild edema surrounding surgical site. No drainage. No lymphadenopathy. No lymphangitis. No surrounding cellulitis. Surgical incision is macerated to left 5th toe Patient has no pain to palpation of left calf. Negative Baires's test. Assessment: (Z98.890) Post-operative state (primary encounter diagnosis) Plan: Patient was examined and informed of current findings Suture was removed today. There is no dehiscence, however, there is maceration of left 5th toe and I feel this is due to patient applying band aids. I want patient to apply betadine and she can use steres if necessary. She was informed on how to apply but I will hold on steres until maceration improves. I will order xrays today. Patient very pleased with progress. Offered antibiotic as precaution but she declined. F/u in 1 week Raheel Mukherjee DPM [facility] PROGRESS HNO ID: [id number] Author: Arlet Randle (Randall Coy Service: ? Author Type: Shake Splitter Type: Progress Notes Filed: 09/18/2018 10:47 AM Note Text: Radiology Service Progress Note PATIENT NAME: Pina Ortega DATE OF SERVICE: September 18, 2018 TIME: 10:41 AM PATIENT IDENTITY VERIFICATION COMPLETED USING TWO (2) METHODS: Patient confirmed name verbally and Date of . PATIENT GENDER DATA: Female. status: : No status: NO. PATIENT RELEVANT IMPLANT DATA REVIEWED: Not Applicable RADIOLOGY DEPARTMENT: General X-ray: Exam(s) Completed: Lower Extremity X-Ray(s): Foot, Left: PERIPHERAL IV DATA: Not applicableo SIGNED BY: RT Marni September 18, 2018 10:41 AM [facility] PROGRESS HNO ID: [id number] Author: Liset Diaz Ma Service: ? Author Type: ? Type: Progress Notes Filed: 09/18/2018 11:26 AM Note Text: AMB ROOMING INTAKE FLOWSHEET DATA Risk Screening Do you have concerns about personal safety or safety in the home?: No Patient presents to clinic for 18 days s/p L hammertoe correction PIPJ fusion, L 2nd and 3rd flexortenotomy, and L 5th derotational arthroplasty. Patient states she has no pain. No redness present around sutures. [facility] XR FOOT 3V AP/LAT/OBL LTon 0 09-18-2018 XR FOOT 3V AP/LAT/OBL LT * * *Final Report* * * DATE OF EXAM: Sep 18 2018 10:48AM [id number] - XR FOOT 3V AP/LAT/OBL LT / PROCEDURE REASON: Post-operative state * * * * Physician Interpretation * * * * Left foot radiographs HISTORY: 58 years old Clinical information: Post-operative state pt states 3 233k follow up for hammertoe surg. TECHNIQUE: Images: XR FOOT 3V AP/LAT/OBL LT Comparison: 07/31/2018. RESULT: Findings: K wires extending through the phalanges of the second and third toe. Hardware and alignment appears intact. Bipartite medial sesamoid bone of the great toe. Pes planus. No acute bony fracture or dislocation. No aggressive osseous lesion is seen. Prior resection of the head of the proximal phalanx fifth toe. Osteophyte formation involving the first metatarsal head of the right foot. Prior resection of the head of the proximal phalanx fifth toe. IMPRESSION: Postsurgical change. No complication. Strategic Planner: PSCNatasha Transcribe Date/Time: Sep 18 2018 4:05P Dictated by : MARCELA ESQUIVEL MD This examination was interpreted and the report reviewed and electronically signed by: MARCELA ESQUIVEL MD on Sep 18 2018 4:06PM EST [id number] [facility] PROGRESSon 09-08-2018 PROGRESS HNO ID: [id number] Author: Raheel Mukherjee Service: ? Author Type: Physician Type: Progress Notes Filed: 09/08/2018 7:46 AM Note Text: DOS: 08/31/18 POD: 4 POV: 1 Surgical side: left This 58 year old presents post op left 2nd and 3rd dipj fusion, left 3rd toe flexor tenotomy and left 5th derotational arthroplasty Pain level: 10/10 Vomiting, fever, chills, shortness of breath: no Pain Control: percocet Weightbearing status: Partial weightbearing in post-op shoe Objective: Incision site is well coapted with no evidence of dehiscence. Mild erythema and edema surrounding surgical site. No drainage. No lymphadenopathy. No lymphangitis. No surrounding cellulitis. Left 2nd, 3rd and 4th toes are rectus. Left 5th toe appears rectus but there is some rotation of distal phalanx on proximal phalanx. Patient has no pain to palpation of left calf. Negative Baires's test. Assessment: (Z98.890) Post-operative state (primary encounter diagnosis) Plan: Patient was examined and informed of current findings. Patient is s/p left 2nd, 3rd dipj fusion, left 3rd toe flexor tenotomy and left 5th toe derotational arthroplasty. Patient foot appears stable, surgical correction appears with toes rectus. The left 5th toe does have some rotation of the distal phalanx relative to proximal phalanx such that the toenail appears to be positioned laterally. The toe was bandaged with the toe rectus. I informed patient that the 5th toe may appear with slight rotation but overall, the correction is rectus. She is happy with the correction achieved. She is not bothered by the appearance of her toes and feels that correction is great. I discussed possible extensor tendon lengthening to possibly bring the 5th toe out of rotation but she is not interested and she is satisfied. Patient will continue with post-op shoe. She will change bandage on Friday of next week. Patient will f/u in 1 week Raheel Mukherjee DPM [facility] CNOVon 09-04-2018 CNOV Office Visit (PODIWS ) PINA ORTEGA ([id number]) 1960 F Date Time Provider Department 09/04/18 10:15 AM RAHEEL MUKHERJEE During your visit today, we recorded the following information about you: Liset Diaz Ma 09/08/2018 7:46 AM Signed AMB ROOMING INTAKE FLOWSHEET DATA Pain Pain Level: 10 Pain Location: Foot-Left Description: Burning, Stabbing Duration Amount of Time: 4 Duration Units: Days Frequency: Continuous Intervention: Relaxation Patient presents to clinic for 4 days s/p L 2nd and 3rd DIPJ, 4th flexortenotomy, And 5th derotational arthroplasty. Patient states her gauze was stuck to stitch last night that caused intense pain.Redness present on L 5th toe. Raheel Mukherjee DPM 09/08/2018 7:46 AM Signed DOS: 08/31/18 POD: 4 POV: 1 Surgical side: left This 58 year old presents post op left 2nd and 3rd dipj fusion, left 3rd toe flexor tenotomy and left 5th derotational arthroplasty Pain level: 10/10 Vomiting, fever, chills, shortness of breath: no Pain Control: percocet Weightbearing status: Partial weightbearing in post-op shoe Objective: Incision site is well coapted with no evidence of dehiscence. Mild erythema and edema surrounding surgical site. No drainage. No lymphadenopathy. No lymphangitis. No surrounding cellulitis. Left 2nd, 3rd and 4th toes are rectus. Left 5th toe appears rectus but there is some rotation of distal phalanx on proximal phalanx. Patient has no pain to palpation of left calf. Negative Baires's test. Assessment: (Z98.890) Post-operative state (primary encounter diagnosis) Plan: Patient was examined and informed of current findings. Patient is s/p left 2nd, 3rd dipj fusion, left 3rd toe flexor tenotomy and left 5th toe derotational arthroplasty. Patient foot appears stable, surgical correction appears with toes rectus. The left 5th toe does have some rotation of the distal phalanx relative to proximal phalanx such that the toenail appears to be positioned laterally. The toe was bandaged with the toe rectus. I informed patient that the 5th toe may appear with slight rotation but overall, the correction is rectus. She is happy with the correction achieved. She is not bothered by the appearance of her toes and feels that correction is great. I discussed possible extensor tendon lengthening to possibly bring the 5th toe out of rotation but she is not interested and she is satisfied. Patient will continue with post-op shoe. She will change bandage on Friday of next week. Patient will f/u in 1 week Raheel Mukherjee DPM Referring Provider: RAHEEL MUKHERJEE [[id number]] Allergies As of Date: 09/04/2018 (No Known Allergies) Date Reviewed: 09/04/2018 Reviewed by: Liset Diaz Ma - Fully Assessed Reason for Visit: Surgical Followup [104] Primary Visit Diagnosis:Post-operati ve state [Z98.890] Order(s):oxyCODONE-yahaira taminophen (PERCOCET) 5-325 mg tabletTake 1 tablet by mouth every 8 hours as needed for up to 7 days.Disp: 21 tabletRfl: 0 Prescriptions as of 09/04/2018 Sig: OXYCODONE-ACETAMINOPHE N 5 MG-* Take 1 tablet by mouth every * CEPHALEXIN 500 MG CAPSULE Take 1 capsule by mouth three* ALBUTEROL SULFATE HFA 90 MCG/* 1 Puff three times daily. ALENDRONATE 70 MG TABLET 70 mg once each week. GABAPENTIN 300 MG CAPSULE Take 300 mg by mouth three ti* PAROXETINE 30 MG TABLET TAKE 1 TABLET BY MOUTH DAILY LORATADINE 10 MG TABLET Take 1 tablet by mouth once d* TIZANIDINE 4 MG TABLET Take 1 tablet by mouth three * MELOXICAM 7.5 MG TABLET Take 1 tablet by mouth once d* CALCIUM CARBONATE 500 MG CALC* Take 1 tablet by mouth twice * CHOLECALCIFEROL (VITAMIN D3) * Take 1 capsule by mouth once * LEVOTHYROXINE 75 MCG TABLET TAKE 1 TABLET BY MOUTH DAILY * OXYCODONE-ACETAMINOPHE N 5 MG-* Take 1 tablet by mouth every * Problem List As Of Date 09/04/2018 Noted Resolved ANXIETY STATE NOS [F41.1] Thyroid cancer (HCC) [C73] INVALID FOR* More... Family history of colon cancer [Z80.0] INVALID FOR* More... Cervical spondylosis without myelopathy [M47.81*INVALID FOR* More... 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] INVALID FOR* Lumbar spondylosis [M47.816] INVALID FOR* More... Left hand weakness [R29.898] INVALID FOR* Depression [F32.9] INVALID FOR* More... Breast lump [N63.0] INVALID FOR* More... Tobacco abuse disorder [Z72.0] INVALID FOR*08/21/2018 More... Left hip pain [M25.552] INVALID FOR* More... Insomnia [G47.00] INVALID FOR* More... Enthesopathy of hip region [M76.899] INVALID FOR* Degeneration of lumbar or lumbosacral intervert*INVALID FOR* More... Backache, unspecified [M54.9] INVALID FOR* Osteoporosis [M81.0] INVALID FOR* More... Polyp of colon [K63.5] INVALID FOR* More... Familial hypercholesterolemia [E78.01] INVALID FOR* More... Basal cell carcinoma [C44.91] INVALID FOR* More... Hypothyroidism [E03.9] INVALID FOR* More... Former smoker [Z87.891] INVALID FOR* More... Pain in left foot [M79.672] INVALID FOR* Simple chronic bronchitis (HCC) [J41.0] INVALID FOR* More... Prescriptions ordered this encounter Disp Refills Start End OXYCODONE-ACETAMINOPHE N 5 MG-325 MG * 21 t* 0 09/04/2018 09/11/2018 Class: Print RX Cmt: Post-op pain Route: ORAL Sig: Take 1 tablet by mouth every 8 hours as needed for up to 7 days. Encounter Status:Closed by SABINA RAHEEL DPM on 09/08/18 [facility] PROGRESSon 09-04-2018 PROGRESS HNO ID: [id number] Author: Liset Diaz Ma Service: ? Author Type: ? Type: Progress Notes Filed: 09/08/2018 7:46 AM Note Text: AMB ROOMING INTAKE FLOWSHEET DATA Pain Pain Level: 10 Pain Location: Foot-Left Description: Burning, Stabbing Duration Amount of Time: 4 Duration Units: Days Frequency: Continuous Intervention: Relaxation Patient presents to clinic for 4 days s/p L 2nd and 3rd DIPJ, 4th flexortenotomy, And 5th derotational arthroplasty. Patient states her gauze was stuck to stitch last night that caused intense pain.Redness present on L 5th toe. [facility] ANES Hayley 08-31-2018 ANES POST HNO ID: [id number] Author: Reji Ortiz Service: Anesthesiology Author Type: Anesthesiologist Type: Anesthesia PostOp Filed: 08/31/2018 6:03 PM Note Text: POST ANESTHESIA EVALUATION NOTE SERVICE DATE: August 31, 2018 SERVICE TIME: 5:54 PM : 1960 Vitals: 08/31/18 1159 BP: 130/76 Pulse: 70 Resp: 16 Temp: 36.2 ?C (97.2 ?F) TempSrc: Temporal Artery SpO2: 97% Validated Vital Signs: Yes No apparent anesthetic complications. The patient is appropriately hydrated with stable respiratory and cardiovascular status. Patient has safe and adequate airway control. The patient has appropriate pain relief and no significant post operative nausea or vomiting. The patient has achieved baseline mental status. Intra-Operative Events: No Significant Anesthesia Events Further assessment by Anesthesia Service: None Other Remarks: SIGNATURE: Reji Ortiz DO PATIENT NAME: Pina Ortega DATE:August 31, 2018 TIME:5:54 PM PAGER/CONTACT #: [phone] [facility] ANES PREOPon 08-31-2018 ANES PREOP HNO ID: [id number] Author: Reji Ortiz Service: Anesthesiology Author Type: Anesthesiologist Type: Anesthesia PreOp Filed: 08/31/2018 1:45 PM Note Text: ANESTHESIOLOGY DAY OF SURGERY NOTE SERVICE DATE: 08/31/2018 SERVICE TIME: 1:40 PM : 1960 Procedure(s) (LRB): RECONSTRUCTION TOE HAMMER (Left) TENOTOMY TOE, PERCUTANEOUS, SINGLE TENDON (Left) Surgeon(s): Raheel Mukherjee Estimated body mass index is 27.78 kg/m? as calculated from the following: Height as of 08/21/18: 170.2 cm (5' 7). Weight as of 08/21/18: 80.5 kg (177 lb 6.4 oz). Most recent hematocrit and potassium results: Hematocrit 43.9 05/25/2018 Potassium 4.2 05/25/2018 ANES DOS/PREOP NOTE: Vitals: 08/31/18 1159 BP: 130/76 Pulse: 70 Resp: 16 Temp: 36.2 ?C (97.2 ?F) TempSrc: Temporal Artery SpO2: 97% ACTIVE PROBLEM LIST Anxiety State, Unspecified Thyroid Cancer (Hcc) Family History of Colon Cancer Cervical Spondylosis Without Myelopathy Lumbosacral Neuritis Lumbar Spondylosis Left Hand Weakness Depression Breast Lump Left Hip Pain Insomnia Enthesopathy of Hip Region Degeneration of Lumbar Or Lumbosacral Intervertebral Disc Backache, Unspecified Osteoporosis Polyp of Colon Familial Hypercholesterolemia Basal Cell Carcinoma Hypothyroidism Former Smoker Pain in Left Foot Simple Chronic Bronchitis (Hcc) PAST MEDICAL HISTORY Diagnosis Date - Anxiety state, unspecified - Cancer (HCC) thyroid - Depressive disorder major - Osteopenia - Osteoporosis - Unspecified hypothyroidism Hypothyroidism PAST SURGICAL HISTORY Procedure Laterality Date - BREAST BIOPSY - COLONOSCOP W/ OR W/O BRSH SPEC 02/17/2018 Colonoscopy - COLONOSCOPY 07/26 - HEMORRHOID;BAND LIGAT, SNGL/MUL 1986 Hemorrhoidectomy - HYSTERECTOMY HX 2000 - LIGATE FALLOPIAN TUBE 1988 Tubal ligation - PAST SURGICAL HISTORY OF 03/31/2017 attempted kyphoplasty at L5, aborted - PAST SURGICAL HISTORY OF Right 06/15/2018 hammertoe - REMOVAL ADENOIDS,PRIMARY,<12 Y/O Adenoidectomy - REMOVAL OF TONSILS,<12 Y/O Tonsillectomy - THYROIDECTOMY 2005 FAMILY HISTORY Problem Relation Age of Onset - Hypertension Mother - Heart Mother CHF HAD BYPASS SURGERY - Hypertension Father - Cancer Father skin - Colon Cancer Brother at age 55 Social History: Social History Tobacco Use - Smoking status: Former Smoker Packs/day: 0.50 Years: 35.00 Pack years: 17.50 Types: Cigarettes Last attempt to quit: 08/15/2014 Years since quittin.0 - Smokeless tobacco: Never Used Substance Use Topics - Alcohol use: No Comment: [facility] beer and wine - Drug use: No No current facility-administered medications on file prior to encounter. Current Outpatient Medications on File Prior to Encounter: albuterol HFA (PROVENTIL HFA, VENTOLIN HFA) 90 mcg/actuation inhaler 1 Puff three times daily. alendronate (FOSAMAX) 70 mg tablet 70 mg once each week. gabapentin (NEURONTIN) 300 mg capsule Take 300 mg by mouth three times daily. PARoxetine (PAXIL) 30 mg tablet TAKE 1 TABLET BY MOUTH DAILY loratadine (ALLERGY RELIEF, LORATADINE,) 10 mg tablet Take 1 tablet by mouth once daily. tiZANidine (ZANAFLEX) 4 mg tablet Take 1 tablet by mouth three times daily as needed (muscle spasms-DR LOVELACE). meloxicam (MOBIC) 7.5 mg tablet Take 1 tablet by mouth once daily. With food. calcium carbonate 500 mg calcium (1,250 mg) chewable tablet Take 1 tablet by mouth twice daily. cholecalciferol, Vitamin D3, (VITAMIN D3) 50,000 unit cap capsule Take 1 capsule by mouth once each week. levothyroxine (SYNTHROID) 75 mcg tablet TAKE 1 TABLET BY MOUTH DAILY ON EMPTY STOMACH FOR THYROID Current Facility-Administered Medications Medication Dose Route Frequency Provider Last Rate Last Dose - lidocaine 10 mg/mL (1 %) 1-2 mg injection (XYLOCAINE) 0.1-0.2 mL INTRADERMAL PRN Angel (Res) Nunez - lactated ringers infusion 5-30 mL/hr INTRAVENOUS CONTINUOUS Angel (Res) Nunez 30 mL/hr at 08/31/18 1202 30 mL/hr at 08/31/18 1202 - ceFAZolin 2 g in dextrose (iso-osmotic) 50 mL (ANCEF,KEFZOL) 2 g INTRAVENOUS Pre-Op Once Angel (Res) Nunez 2 g at 08/31/18 1202 - ketorolac 30 mg injection (TORADOL) 30 mg INTRAVENOUS ONCE Dee Dee (Res) Figas Allergies: ALLERGIES No Known Allergies DOS EXAM: Adequate NPO Status: Yes Anesthetic Risks, Benefits, Alternatives, Personnel and Consent Discussed: Yes Patient agrees to proceed: Yes Previous Anesthesia: No history of adverse event Airway Assessment: MP 2; Neck ROM: Full ROM without neurologic symptoms; Airway Evaluation: No significant abnormalities Symptoms of Sleep Apnea: None Dentition: Teeth intact Additional Physical Exam: Lungs: Patient health status unchanged since recent history and physical. See history and physical for exam findings. Cardiac: Patient health status unchanged since recent history and physical. See history and physical for exam findings. Additional Pertinent Findings: N/A Blood Products: Not anticipated for this procedure Anesthetic Plan: MAC with general as back up Anesthetic Monitoring: Standard ASA Monitors Pain Management Plan: Parenteral or Oral ASA Class: 2 Other Medical Problems: None Chronic Beta Maryan medication administered within 24 hours: N/A I have interviewed and examined the patient. I have reviewed the medical record and/or the pre-anesthesia evaluation, pertinent labs, and test results. Significant changes in the patient's condition since the History and Physical, not otherwise documented in primary service progress notes: No This contains updated information obtained within 48 hours of Surgery/Procedure. SIGNATURE: Reji Ortiz DO PATIENT NAME: Pina Ortega DATE: August 31, 2018 TIME: 1:40 PM CSN: [id number] [facility] HISTORY PHYSICALon 9 HISTORY PHYSICAL HNO ID: [id number] Author: Angel Nunez Service: Podiatry Author Type: Resident Type: HANDP Filed: 08/31/2018 3:00 PM Note Text: Attestation signed by Raheel Mukherjee at 09/01/2018 7:48 AM I agree with resident note and plan per consent Raheel Mukherjee DPM PODIATRIC HISTORY AND PHYSICAL UPDATE EVALUATION DATE: 08/31/2018 EVALUATION TIME: 2:59 PM The documented History and Physical (completed in the past 30 days) has been reviewed and the patient had a confirmatory musculoskeletal exam performed. The contents of the pre-operative assesment accurately reflect the patient's condition with the following additions or revisions since the HANDP was completed: No changes. This HANDP can be found in the record dated 08/21/18 per Bre Rodriguez (Pa). SIGNATURE: Angel Nunez DPM PATIENT NAME: Pina Ortega DATE: August 31, 2018 TIME: 2:59 PM [facility] NURSING PROGon 08-31-2018 NURSING PROG HNO ID: [id number] Author: Clarisa Heredia (Rn) CHARLES Karu Service: ? Author Type: Registered Nurse Type: Nursing Progress Note Filed: 08/31/2018 3:40 PM Note Text: Patient stated she had nickel allergy. Dr. Mukherjee notified. Dr. Mukherjee discussed used of Kwire with patient. Patient states she was fine with kwire in past surgeries. [facility] OPERATIVE NOon 08-31-2018 OPERATIVE NO HNO ID: [id number] Author: Raheel Mukherjee Service: Podiatry Author Type: Physician Type: Operative Report Filed: 09/01/2018 9:59 PM Note Text: OPERATIVE/PROCEDURE REPORT LOG ID: [id number] SURGERY/PROCEDURE DATE: 08/31/2018 INCISION/PROCEDURE START TIME: 3:38 PM INCISION CLOSE/PROCEDURE END TIME: 5:31 PM SURGEON(S)/PROCEDURALI ST(S) AND EMAIL DEPLOYMENT SPECIALIST(S): Surgeon(s) and Role: * Raheel Mukherjee - Primary No Additional Staff SURGERY/PROCEDURE(S): Left 2nd distal interphalangeal joint fusion Left 3rd distal interphalangeal joint fusion Left 4th toe flexor tenotomy Left 5th toe derotational arthroplasty. ANESTHESIA: General SURGERY/PROCEDURE DETAILS: patient is a very pleasant 58 year old female who complains of pain to the dorsal aspect of left 2nd 3rd and 4th distal interphlangeal joints as well as lateral aspect of left 5th toe. She also has complaint of persistent callus of left 5th toe. She has tried wider shoes and padding but despite conservative care, she continues to complain of pain. She had similar issues on right foot that was treated by me with hammertoe reconstruction. Patient would like to have correction of the left foot. On exam, she has semirigid hammertoe of left 2nd and 3rd distal interphalangeal joint. 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 She also has callus of left 5th toe. I have discussed options with patient not limited to 2nd dipj fusion, left 3rd and 4th toe flexor tenotomy and derotational arthroplasty. Initially, she consented for the proposed procedure but at time of surgery, we found that the 3rd toe was more rigid than earlier examined and for this reason, patient elected for fusion of 3rd dipj. I informed patient the risks of the proposed procedures include infection, pain, swelling, bleeding, slow wound healing, wound dehiscence, bone infection, loss of toe. Other risks include undercorrection of hammertoe, overcorrection of hammertoe, need for revised procedures, unacceptable appearance of toes and dissatification of procedure. Patient deformity although painful, they are very subtle and she understands that surgery can lead to overcorrection of deformity. Patient understands that following surgery, she will need to remain partial weightbearing to her heel. Any walking to her forefoot can risk complications noted above. Patient consents for left 2nd and 3rd dipj fusion, left 4th toe flexor tenotomy and left 5th toe derotational arthroplasty. All questions answered. No guarantees expressed. Patient was transferred from pre-op holding area to operating room and placed on operating room table in supine position. She was placed under general anesthesia. The left lower extremity was prepped and draped in usual aseptic technique. The left 2nd, 3rd, 4th and 5th toes were injected with 3 cc of local anesthesia. Time out was performed making note of procedure. The left lower extremity was elevated and the tourniquet was inflated. Attention was then directed to the left 2nd and 3rd toes. A transverse incision at dipj was performed of left 2nd toe. The extensor tendon was transected. The head of middle phalanx and base of distal phalanx was then resected with power saw and curette. The flexor tendon was identfied and transected to provide complete flexor contracture. A 0.45 inch k-wire was then placed distally out the proximal phalanx and then directed proximally to the base of proximal phalanx. The surgical incision was irrigated. A transverse incision at dipj was performed of left 3rd toe. The extensor tendon was transected. The head of middle phalanx and base of distal phalanx was then resected with power saw and curette. The flexor tendon was identfied and transected to provide complete flexor contracture. A 0.45 inch k-wire was then placed distally out the proximal phalanx and then directed proximally to the base of proximal phalanx. The surgical incision was irrigated. The tourniquet was deflated and hyperemic response was noted. Hemostasis was achieved. The extensor tendon of left 2nd and 3rd toe was repaired with 3-o vicryl. The toes were closed in layers. Attention was then directed to the left 5th toe. c-arm was used to plan incision. The left 5th toe was found to be rubbing on 4th toe and there was prominent thicker skin along the lateral proximal phalanx. Two converging incisions was placed from proximal lateral to distal medial. The extensor tendon was transected with 15 blade. The head of proximal phalanx was then resected. After resecting head of proximal phalanx, the toe was nearly rectus. I evaluated the toe to see if there were need for flexor tenotomy but I felt that flexor tenotomy may lead to floppy toe. I did not feel that flexor tenotomy was necessary so I did not perform. Irrigation was performed. The extensor tendon was then repaired with 3-0 vicryl. The toe was then closed in layers. Attention was then directed to the left 4th toe. A linear incision along the plantar 4th toe was performed. The flexor tendon was then identified and then completely transected with 15 blade. The toe was then irrigated with saline. The incision was repaired with 3-0 nylon. The toe was then splinted with steres strips Intra-op c-arm was performed and confirmed successful dipj fusion of left 2nd and 3rd toes and near rectus alignment of toes 2-5 left foot. Post-op dressing was applied consisting for betadine soaked adaptic, 4x4 guaze, jacob, yahaira bandage steres were placed on 4th toe. Patient was then awakened and found to be in stable condition. She was transferred to pacu in stable condition. PRE-OP/PRE-PROCEDURE DIAGNOSIS: hammertoe of left 2nd, 3rd, 4th and 5th toes POST-OP/POST-PROCEDURE DIAGNOSIS: * No post-op diagnosis entered * same ESTIMATED BLOOD LOSS: less than 2 ml mls SPECIMENS: None IMPLANTABLE DEVICES: 0.45 inch kwire x 2 DRAINS: None COMPLICATIONS: None PARTICIPATION IN SURGERY/PROCEDURE: I/primary surgeon/proceduralist performed the procedure with assistance. SIGNATURE: Raheel Mukherjee DPM PATIENT NAME: Pina Ortega DATE: August 31, 2018 TIME: 11:19 PM PAGER/CONTACT #: [facility] PT EDon 08-31-2018 PT ED HNO ID: [id number] Author: Pepper LirianoRnOmid Westfall RN Service: Nursing Author Type: Registered Nurse Type: Patient Education Filed: 08/31/2018 6:39 PM Note Text: POST OP LEARNING RESPONSE INSTRUCTION PROVIDED TO: Patient and family member METHOD OF INSTRUCTION: Written instruction - handouts Verbal instruction PATIENT / FAMILY RESPONSE: Verbalizes understanding of: INFECTION MANAGEMENT-Signs and symptoms of an infection and importance of contacting the physician FOLLOW-UP PLAN: Patient instructed to call with any further issues SUPPLEMENTAL MATERIAL: Post op discharge instructions REFERRAL (RECOMMENDATION): None Electronically Signed By: Pepper Westfall RN In Department: AMBULATORY SURGERY [facility] PT ED HNO ID: [id number] Author: Eileen Garnica RN Service: Nursing Author Type: Registered Nurse Type: Patient Education Filed: 08/31/2018 12:01 PM Note Text: PRE OP LEARNING ASSESSMENT PROCEDURE/SURGERY: SURGERY: left foot hammer toe READINESS TO LEARN COGNITIVE ABILITY: Alert and oriented MOTIVATION TO LEARN: Eager FAMILY SUPPORT: High - Very involved in pt care PATIENT LEARNS BEST BY: Individual Instruction Written Instruction - Hand-outs Verbal Instruction Multiple Methods FACTORS AFFECTING LEARNING: None PHYSICAL LIMITATIONS AFFECTING LEARNING: None Electronically Signed By: Eileen Garnica RN In Department: AMBULATORY SURGERY [facility] XR FOOT 3V AP/LAT/OBL LTon 0 08-31-2018 XR FOOT 3V AP/LAT/OBL LT * * *Final Report* * * DATE OF EXAM: Aug 31 2018 6:06PM STX [id number] - XR FOOT 3V AP/LAT/OBL LT / PROCEDURE REASON: Post-operative / post-procedure assessment, asymptomatic * * * * Physician Interpretation * * * * HISTORY: Postoperative left foot TECHNIQUE: 3 views COMPARISON: None RESULT: K wires are seen through all 3 phalanges of the second and third toes. There is generalized bony demineralization. IMPRESSION: As in results Strategic Planner: PSCB Transcribe Date/Time: Sep 01 2018 8:01A Dictated by : JOYCELYN BARKER MD This examination was interpreted and the report reviewed and electronically signed by: JOYCELYN BARKER MD on Sep 01 2018 8:02AM EST [id number] [facility] NURSING PROGon 08-28-2018 NURSING PROG HNO ID: [id number] Author: Racheal (Rn) CHARLES Guadarrama Service: Neurosurgery Author Type: Registered Nurse Type: Nursing Progress Note Filed: 08/28/2018 7:18 AM Note Text: PACC Nurse Progress Note History AND Physical: PACC Visit Date: 08-21-18 Original HANDP Date: N/A ED visit Date: N/A Outside HANDP Scanned Date: N/A Labs Within Last 6 Months: N/A Imaging Within Last 12 Months: N/A Cardiac Testin08-21-18 EKG in [facility] BMI Percentile (PEDS): N/A Risk Assessment: N/A Anesthesia Review: N/A Narrative: N/A Pre-op Considerations: N/A Chart Check: COMPLETED Racheal Guadarrama RN August 28, 2018 7:18 AM [facility] HOSPon 08-27-2018 HOSP Patient:Pina Ortega MRN: Height:5' 7(1.702 m) Weight:177 lb 6.4 oz (80.468 kg) Outpatient Medications as of 08/31/18: albuterol HFA (PROVENTIL HFA, VENTOLIN HFA) 90 mcg/actuation inhaler alendronate (FOSAMAX) 70 mg tablet gabapentin (NEURONTIN) 300 mg capsule PARoxetine (PAXIL) 30 mg tablet loratadine (ALLERGY RELIEF, LORATADINE,) 10 mg tablet tiZANidine (ZANAFLEX) 4 mg tablet meloxicam (MOBIC) 7.5 mg tablet calcium carbonate 500 mg calcium (1,250 mg) chewable tablet cholecalciferol, Vitamin D3, (VITAMIN D3) 50,000 unit cap capsule levothyroxine (SYNTHROID) 75 mcg tablet Admission/Clinic Administered Medications as of 08/31/18: lidocaine 10 mg/mL (1 %) 1-2 mg injection (XYLOCAINE) lactated ringers infusion ceFAZolin 2 g in dextrose (iso-osmotic) 50 mL (ANCEF,KEFZOL) ketorolac 30 mg injection (TORADOL) Problem List: Anxiety state, unspecified [F41.1] Thyroid cancer (HCC) [C73] Family history of colon cancer [Z80.0] Cervical spondylosis without myelopathy [M47.812] 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] Lumbar spondylosis [M47.816] Left hand weakness [R29.898] Depression [F32.9] Breast lump [N63.0] Left hip pain [M25.552] Insomnia [G47.00] Enthesopathy of hip region [M76.899] Degeneration of lumbar or lumbosacral intervertebral disc [M51.37] Backache, unspecified [M54.9] Osteoporosis [M81.0] Polyp of colon [K63.5] Familial hypercholesterolemia [E78.01] Basal cell carcinoma [C44.91] Hypothyroidism [E03.9] Former smoker [Z87.891] Pain in left foot [M79.672] Simple chronic bronchitis (HCC) [J41.0] Allergies: No Known Allergies Date Verified:08/31/18 Lab Values No results within the last 30 days for the following basenames: K,HCT No progress notes entered within the past 30 days [facility] NURSING PROGon 08-24-2018 Protein mass conc HNO ID: [id number] Author: Nisha (Rn) CHARLES Lazcano Service: ? Author Type: Registered Nurse Type: Nursing Progress Note Filed: 08/24/2018 11:32 AM Note Text: PACC Nurse Progress Note History AND Physical: PACC Visit Date: 08/21/18 Original HANDP Date: N/A ED visit Date: N/A Outside HANDP Scanned Date: N/A Labs Within Last 6 Months: Cbc,Bmp 05/25/18 within acceptable limits for planned procedure Imaging Within Last 12 Months: See chart Cardiac Testing: EKG in last 12 Months: Yes: Date: 08/21/18, Comment: SR,PAC'S Last Menstrual Period: LMP Date: N/A Postmenopausal >1yr: Yes, S/P Hysterectomy: Yes BMI Percentile (PEDS): N/A Risk Assessment: N/A Anesthesia Review: N/A Narrative: N/A Pre-op Considerations: N/A Chart Check: COMPLETED Nisha Lazcano RN August 24, 2018 11:30 AM [facility] ECG COMPLETEon 08-21-2018 ECG COMPLETE NAME : PINA ORTEGA PID : [id number] : 1960 Gender : Female Race : ORD : [id number] Procedure Date : Aug 21 2018 07:42:35 Edit Date : Aug 24 2018 09:04:16 Diagnosis:SINUS RHYTHM WITH PREMATURE ATRIAL COMPLEXES OTHERWISE NORMAL ECG Confirmed by PETERSON DALY M.D. ([id number]) on 08/24/2018 9:04:12 AM Ventricular Rate : 72 BPM Atrial Rate : 72 BPM P-R Interval : 160 ms QRS Duration : 88 ms Q-T Interval : 406 ms QTC Calculation(Bezet) : 444 ms P [place] : 37 degrees R [place] : 10 degrees T [place] : 17 degrees Test Reason : preop Location : 189 : [facility] Overread By : PETERSON DALY M.D. Edited By : PETERSON DALY M.D. Referred By : BRE RODRIGUEZ Acquired by : Latricia rowland [facility] HISTORY PHYSICALon 9 HISTORY PHYSICAL HNO ID: [id number] Author: Bre Rodriguez (Pa) Service: ? Author Type: Physician Tool And Die Maker Level Five Type: HANDP Filed: 08/21/2018 8:55 AM Note Text: HISTORY AND PHYSICAL EXAMINATION SERVICE DATE: 08/21/2018 SERVICE TIME: 8:08 AM PRIMARY CARE PHYSICIAN: Jessica May CNP REASON FOR VISIT: Pina Ortega is a 58 year old female who is scheduled for left reconstruction hammertoe, left PIPJ fusion at the request of Dr. Raheel Mukherjee for consultation. My final recommendation will be communicated back to the requesting physician by way of shared medical record or letter. The patient has the following: ACTIVE PROBLEM LIST Anxiety State, Unspecified Thyroid Cancer (Hcc) Family History of Colon Cancer Cervical Spondylosis Without Myelopathy Lumbosacral Neuritis Lumbar Spondylosis Left Hand Weakness Depression Breast Lump Left Hip Pain Insomnia Enthesopathy of Hip Region Degeneration of Lumbar Or Lumbosacral Intervertebral Disc Backache, Unspecified Osteoporosis Polyp of Colon Familial Hypercholesterolemia Basal Cell Carcinoma Hypothyroidism Former Smoker Pain in Left Foot Simple Chronic Bronchitis (Hcc) Subjective CHIEF COMPLAINT: left foot pain HPI: 58 yo female with left foot pain over the past few yrs. The pain is worse with walking and activity and certain shoes. Better with rest and no shoes. No prior left foot treatment. H/o right foot surgery on 06/15/18 PAST MEDICAL HISTORY Diagnosis Date - Anxiety state, unspecified - Cancer (HCC) thyroid - Depressive disorder major - Osteopenia - Osteoporosis - Unspecified hypothyroidism Hypothyroidism PAST SURGICAL HISTORY Procedure Laterality Date - BREAST BIOPSY - COLONOSCOP W/ OR W/O [facility] SPEC 02/17/2018 Colonoscopy - COLONOSCOPY 07/26 - HEMORRHOID;BAND LIGAT, SNGL/MUL 1986 Hemorrhoidectomy - HYSTERECTOMY 2000 - LIGATE FALLOPIAN TUBE 1988 Tubal ligation - PAST SURGICAL HISTORY OF 03/31/2017 attempted kyphoplasty at L5, aborted - PAST SURGICAL HISTORY OF Right 06/15/2018 hammertoe - REMOVAL ADENOIDS,PRIMARY,<12 Y/O Adenoidectomy - REMOVAL OF TONSILS,<12 Y/O Tonsillectomy - THYROIDECTOMY 2005 FAMILY HISTORY Problem Relation Age of Onset - Hypertension Mother - Heart Mother CHF HAD BYPASS SURGERY - Hypertension Father - Cancer Father skin - Colon Cancer Brother at age 55 SOCIAL HISTORY: Social History Socioeconomic History Marital status: Single Spouse name: Not on file Number of children: Not on file Years of education: Not on file Highest education level: Not on file Social Needs Financial resource strain: Not on file Food insecurity - worry: Not on file Food insecurity - inability: Not on file Transportation needs - medical: Not on file Transportation needs - non-medical: Not on file Occupational History Not on file Tobacco Use Smoking status: Former Smoker Packs/day: 0.50 Years: 35.00 Pack years: 17.5 Types: Cigarettes Quit date: 08/15/2014 Years since quittin.0 Smokeless tobacco: Never Used Substance and Sexual Activity Alcohol use: No Comment: occ beer and wine Drug use: No Sexual activity: Not on file Other Topics Concerns: Not on file Social History Narrative Not on file Prior to Admission medications as of 08/21/18 1512 Medication Sig Last Dose Taking albuterol HFA (PROVENTIL HFA, VENTOLIN HFA) 90 mcg/actuation inhaler 1 Puff three times daily. Yes alendronate (FOSAMAX) 70 mg tablet 70 mg once each week. Yes gabapentin (NEURONTIN) 300 mg capsule Take 300 mg by mouth three times daily. Yes PARoxetine (PAXIL) 30 mg tablet TAKE 1 TABLET BY MOUTH DAILY Yes loratadine (ALLERGY RELIEF, LORATADINE,) 10 mg tablet Take 1 tablet by mouth once daily. Yes tiZANidine (ZANAFLEX) 4 mg tablet Take 1 tablet by mouth three times daily as needed (muscle spasms-DR LOVELACE). Yes meloxicam (MOBIC) 7.5 mg tablet Take 1 tablet by mouth once daily. With food. Yes calcium carbonate 500 mg calcium (1,250 mg) chewable tablet Take 1 tablet by mouth twice daily. Yes cholecalciferol, Vitamin D3, (VITAMIN D3) 50,000 unit cap capsule Take 1 capsule by mouth once each week. Yes levothyroxine (SYNTHROID) 75 mcg tablet TAKE 1 TABLET BY MOUTH DAILY ON EMPTY STOMACH FOR THYROID Yes ULTICARE PEN NEEDLE 31 gauge x 07/30 ndle USE DIRECTED. WITH FORTEO Patient not taking: Reported on 06/19/2018 No medication comments found. ALLERGIES No Known Allergies REVIEW OF SYSTEMS: PAIN ASSESSMENT: General: No weight loss, malaise or fevers. Neuro: No history of TIA's, stroke, HEART SPECIALIST tumor, impaired sensorium, hemiplegia, paraplegia or quadraplegia. No neurological symptoms or problems. Respiratory: Positive for Mild COPD, SOB with cough over the past 4-5 months and using albuterol tid over the past 2 months. No Pulmonary testing yet. , Negative for Asthma, Home O2, Tobacco Use, URI < 2 weeks Cardiovascular: Positive for: occasional heart flutter no diagosis or work up, Negative for Recent NV, Chest Pain, Valvular Heart Disease, DVT/PE GI: No history of GI symptoms or problems. No history of esophageal varices, recent ascites, or ETOH greater than 2 drinks per day. 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 : Denies, No LMP recorded. Patient has had a hysterectomy. Endocrine: Hypothyroidism, h/o thyroid cancer Hematology: No history of bleeding or clotting disorder. Pt is not taking anti-coagulation or platelet medications. No history of hematological symptoms or problems. Oncology: Thyroid cancer Psych: Depression Musculoskeletal: See HPI Skin: Negative for lesions, rash and itching. Objective PHYSICAL EXAM: VITALS: BP 110/65 Pulse 79 Temp (Src) 98.6 (Temporal) Resp 16 Ht 5' 7 (1.70m) Wt 177 lb 6.4 oz (80.5kg) SpO2 97% BMI 27.78 kg/(m2). General: Alert and oriented, No acute distress, Healthy appearance Skin: Normal color, no rash, no lesions. HEENT: EOM, pupils equal, round and reactive. Cardiovascular: Normal S1 AND S2, no rubs, murmurs or gallops. No JVD. Pulse regular. occasional PVC Lungs: Normal breath sounds, no wheezes or crackles. Abdomen: Soft, non-tender, no rigidity. Extremities: No deformity, no edema or tenderness, no joint swelling or clubbing. Neurological: Normal cognition and motor skills. Pulses: Carotid and radial pulses normal +2. Diagnostic tests reviewed for today's visit: Lab Value Units Date High Low HB 14.2 g/dL 05/25/2018 15.5 11.5 HCT 43.9 % 05/25/2018 46.0 36.0 WBC 5.95 k/uL 05/25/2018 11.00 3.70 PLT 304 k/uL 05/25/2018 400 150 NA 138 mmol/L 05/25/2018 144 136 K 4.2 mmol/L 05/25/2018 5.1 3.7 GLUC 88 mg/dL 05/25/2018 99 74 BUN 18 mg/dL 05/25/2018 21 7 CREAT 0.71 mg/dL 05/25/2018 0.96 0.58 PTSEC No results within date range. INR No results within date range. APTT No results within date range. ALT No results within date range. AST No results within date range. TBILI No results within date range. TSH No results within date range. Lab Value Units Date High Low HCGQT No results within date range. UHCG No results within date range. HCG, BODY* No results within date range. Lab Value Units Date High Low ABORHD No results within date range. ABSCREEN No results within date range. No results found for: HBA1C Most recent labs Assessment/Plan Depression Assessment: controlled on rx Cervical spondylosis without myelopathy Assessment: Pain and limited neck ROM, mostly rotation Simple chronic bronchitis (HCC) Assessment: cough and SOB over several months, using albuterol tid. No PFT's done yet Thyroid cancer (HCC) Assessment: on synthroid Lumbar spondylosis Assessment: back pain on Mobic METS: Climb a flight of stairs or walk up a hill (5.50 METs) ASA Class: 2 ANESTHESIA FINDINGS: Intubation History: No history of difficult intubation Significant Anesthesia Considerations: None Airway Exam: General: Normal appearance Mallampati Score is CLASS II ULBT: Class I - Lower incisors can bite the upper lip above the caprice line Neck: Distance from hyoid to mentum during neck extension is at least 3 finger breaths, Limited movement flexion, extension and turning to one or both sides, Pain with neck movement Mouth: Normal tongue size Dentition: Upper denture and Lower denture Airway History: No abnormal airway history STOP BANG Score: Criteria: Age over 50 (58 year old) Score = 1 PLAN This patient is optimally prepared for surgery pending EKG. CONSULTS: Patient does not require consults for optimization at this time. The Following Tests/Procedures Have Been Initiated: Orders Placed This Encounter albuterol HFA (PROVENTIL HFA, VENTOLIN HFA) 90 mcg/actuation inhaler Si Puff three times daily. Refill: 0 alendronate (FOSAMAX) 70 mg tablet Si mg once each week. gabapentin (NEURONTIN) 300 mg capsule Sig: Take 300 mg by mouth three times daily. Refill: 0 ECG COMPLETE Standing Status: Future Standing Expiration Date: 08/22/2019 Planned Anesthetic: Per anesthesia choice Instructions Given to Patient: Patient given verbal and written preop instructions and voices comprehension and compliance. @ASSESSEND@ SIGNATURE: Bre Rodirguez PA-C PATIENT NAME: Pina Ortega DATE: August 21, 2018 TIME: 8:08 AM PAGER/CONTACT #: Latricia [facility] PROGRESSon 08-03-2018 PROGRESS HNO ID: [id number] Author: Raheel Mukherjee Service: ? Author Type: Physician Type: Progress Notes Filed: 08/03/2018 1:33 PM Note Text: Follow up podiatric office visit for: Chief Complaint: This 58 year old who presents for follow up:hammertoe of right 2nd, 3rd, 4th and 5th toe. Patient denies any pain. Patient has transitioned into regular shoes. She states she is doing very well. Patient has new xrays to review. Patient does have interest in fixing toes of left foot. She has pain when wearing shoes on the left foot. PAIN EVALUATION No data found. No results found for: HBA1C PCP: Jessica May CNP PAST MEDICAL HISTORY Diagnosis Date - Anxiety state, unspecified - Cancer (HCC) thyroid - Depressive disorder major - Osteopenia - Osteoporosis - Unspecified hypothyroidism Hypothyroidism Current Outpatient Medications: cephALEXin (KEFLEX) 500 mg capsule Take 1 capsule by mouth three times daily. cephALEXin (KEFLEX) 500 mg capsule Take 1 capsule by mouth three times daily. cephALEXin (KEFLEX) 500 mg capsule Take 1 capsule by mouth three times daily. PARoxetine (PAXIL) 30 mg tablet TAKE 1 TABLET BY MOUTH DAILY loratadine (ALLERGY RELIEF, LORATADINE,) 10 mg tablet Take 1 tablet by mouth once daily. tiZANidine (ZANAFLEX) 4 mg tablet Take 1 tablet by mouth three times daily as needed (muscle spasms-DR LOVELACE). meloxicam (MOBIC) 7.5 mg tablet Take 1 tablet by mouth once daily. With food. calcium carbonate 500 mg calcium (1,250 mg) chewable tablet Take 1 tablet by mouth twice daily. cholecalciferol, Vitamin D3, (VITAMIN D3) 50,000 unit cap capsule Take 1 capsule by mouth once each week. levothyroxine (SYNTHROID) 75 mcg tablet TAKE 1 TABLET BY MOUTH DAILY ON EMPTY STOMACH FOR THYROID ULTICARE PEN NEEDLE 31 gauge x 5/16 ndle USE DIRECTED. WITH FORTEO (Patient not taking: Reported on 06/19/2018) Teriparatide (FORTEO) 20 mcg/dose - 600 mcg/2.4 mL pnij Inject 20 mcg subcutaneously once daily. (Patient not taking: Reported on 06/19/2018 ) No current facility-administered medications for this visit. ALLERGIES No Known Allergies PAST SURGICAL HISTORY Procedure Laterality Date - BREAST BIOPSY - COLONOSCOP W/ OR W/O [facility] SPEC 02/17/2018 Colonoscopy - COLONOSCOPY 07/26 - HEMORRHOID;BAND LIGAT, SNGL/MUL 1986 Hemorrhoidectomy - HYSTERECTOMY HX 2000 - LIGATE FALLOPIAN TUBE 1988 Tubal ligation - PAST SURGICAL HISTORY OF 03/31/2017 attempted kyphoplasty at L5, aborted - REMOVAL ADENOIDS,PRIMARY,<12 Y/O Adenoidectomy - REMOVAL OF TONSILS,<12 Y/O Tonsillectomy - THYROIDECTOMY 2005 Physical Exam: Constitutional: Pt is a well developed 58 year old female who is alert, oriented, cooperative and in no apparent distress. OBJECTIVE: NVSI unchanged from previous visit. Dermatological: Nails 1-5 b/l are normal. Webspaces clean and dry 1-4 b/l. Skin appears well hydrated and supple. good color, texture, turgor. All skin incisions to right foot are now healed without infection. No open lesions present. No callosities present. Musculoskeletal/Orthop aedic: Patient has clinically rectus toes of right 2nd, 3rd, 4th and 5th toes. There is clinically fused toes of right 2nd, 3rd, 4th toes. There is rigid hammertoe of right 2nd dipj and adductovarus deformity of left 5th toe. There is flexible hammertoe of left 3rd and 4th toe No calf pain noted b/l xrays of right foot reviewed. There is post-surgical changes of right foot. No infection noted. ASSESSMENT: (Z98.890) Post-operative state (primary encounter diagnosis (M20.42) Hammertoe of left foot PLAN: 1. History and physical examination completed today. 2. Patient right foot examined. She has healed all her incisions without issue. The toes appear rectus. Patient very satisfied with outcome. At this time, I will allow her to transition into regular shoes at 1 hour/day. She can increase daily. 3. Discussed hammertoes of left foot. The left 2nd dipj has rigid contracture. Left left 3d and 4th toe are reducible. 4. Discussed surgical options by way of left 2nd dipj fusion, left 3rd and 4th flexor tenotomy and left 5th derotational arthroplasty. I offered pipj fusion of left 3d and 4th but patient does not wish for wire fixation and given the flexible nature of 3rd and 4th toe, I do feel flexor tenotomy is adequate. 5. All r/b/a were discussed. 6. Patient consents to proceed. Raheel Mukherjee DPM [facility] CNOVon 07-31-2018 CNOV Office Visit (PODIWS ) SHANNONPINA Chuy ([id number]) 1960 F Date Time Provider Department 07/31/18 10:45 AM RAHEEL MUKHERJEE PODIWS During your visit today, we recorded the following information about you: Liset Diaz Ma 08/03/2018 1:33 PM Signed AMB ROOMING INTAKE FLOWSHEET DATA Risk Screening Do you have concerns about personal safety or safety in the home?: No Patient presents to clinic for 46 days s/p 2nd, 3rd, and 5th hammertoe reconstruction. Patient states she has no pain. Raheel Mukherjee DPM 08/03/2018 1:33 PM Signed Follow up podiatric office visit for: Chief Complaint: This 58 year old who presents for follow up:hammertoe of right 2nd, 3rd, 4th and 5th toe. Patient denies any pain. Patient has transitioned into regular shoes. She states she is doing very well. Patient has new xrays to review. Patient does have interest in fixing toes of left foot. She has pain when wearing shoes on the left foot. PAIN EVALUATION No data found. No results found for: HBA1C PCP: Jessica May CNP PAST MEDICAL HISTORY Diagnosis Date - Anxiety state, unspecified - Cancer (HCC) thyroid - Depressive disorder major - Osteopenia - Osteoporosis - Unspecified hypothyroidism Hypothyroidism Current Outpatient Medications: cephALEXin (KEFLEX) 500 mg capsule Take 1 capsule by mouth three times daily. cephALEXin (KEFLEX) 500 mg capsule Take 1 capsule by mouth three times daily. cephALEXin (KEFLEX) 500 mg capsule Take 1 capsule by mouth three times daily. PARoxetine (PAXIL) 30 mg tablet TAKE 1 TABLET BY MOUTH DAILY loratadine (ALLERGY RELIEF, LORATADINE,) 10 mg tablet Take 1 tablet by mouth once daily. tiZANidine (ZANAFLEX) 4 mg tablet Take 1 tablet by mouth three times daily as needed (muscle spasms-DR LOVELACE). meloxicam (MOBIC) 7.5 mg tablet Take 1 tablet by mouth once daily. With food. calcium carbonate 500 mg calcium (1,250 mg) chewable tablet Take 1 tablet by mouth twice daily. cholecalciferol, Vitamin D3, (VITAMIN D3) 50,000 unit cap capsule Take 1 capsule by mouth once each week. levothyroxine (SYNTHROID) 75 mcg tablet TAKE 1 TABLET BY MOUTH DAILY ON EMPTY STOMACH FOR THYROID ULTICARE PEN NEEDLE 31 gauge x 07/30 ndle USE DIRECTED. WITH FORTEO (Patient not taking: Reported on 06/19/2018) Teriparatide (FORTEO) 20 mcg/dose - 600 mcg/2.4 mL pnij Inject 20 mcg subcutaneously once daily. (Patient not taking: Reported on 06/19/2018 ) No current facility-administered medications for this visit. ALLERGIES No Known Allergies PAST SURGICAL HISTORY Procedure Laterality Date - BREAST BIOPSY - COLONOSCOP W/ OR W/O [facility] SPEC 02/17/2018 Colonoscopy - COLONOSCOPY 07/26 - HEMORRHOID;BAND LIGAT, SNGL/MUL 1986 Hemorrhoidectomy - HYSTERECTOMY HX 2000 - LIGATE FALLOPIAN TUBE 1988 Tubal ligation - PAST SURGICAL HISTORY OF 03/31/2017 attempted kyphoplasty at L5, aborted - REMOVAL ADENOIDS,PRIMARY,<12 Y/O Adenoidectomy - REMOVAL OF TONSILS,<12 Y/O Tonsillectomy - THYROIDECTOMY 2005 Physical Exam: Constitutional: Pt is a well developed 58 year old female who is alert, oriented, cooperative and in no apparent distress. OBJECTIVE: NVSI unchanged from previous visit. Dermatological: Nails 1-5 b/l are normal. Webspaces clean and dry 1-4 b/l. Skin appears well hydrated and supple. good color, texture, turgor. All skin incisions to right foot are now healed without infection. No open lesions present. No callosities present. Musculoskeletal/Orthop aedic: Patient has clinically rectus toes of right 2nd, 3rd, 4th and 5th toes. There is clinically fused toes of right 2nd, 3rd, 4th toes. There is rigid hammertoe of right 2nd dipj and adductovarus deformity of left 5th toe. There is flexible hammertoe of left 3rd and 4th toe No calf pain noted b/l xrays of right foot reviewed. There is post-surgical changes of right foot. No infection noted. ASSESSMENT: (Z98.890) Post-operative state (primary encounter diagnosis (M20.42) Hammertoe of left foot PLAN: 1. History and physical examination completed today. 2. Patient right foot examined. She has healed all her incisions without issue. The toes appear rectus. Patient very satisfied with outcome. At this time, I will allow her to transition into regular shoes at 1 hour/day. She can increase daily. 3. Discussed hammertoes of left foot. The left 2nd dipj has rigid contracture. Left left 3d and 4th toe are reducible. 4. Discussed surgical options by way of left 2nd dipj fusion, left 3rd and 4th flexor tenotomy and left 5th derotational arthroplasty. I offered pipj fusion of left 3d and 4th but patient does not wish for wire fixation and given the flexible nature of 3rd and 4th toe, I do feel flexor tenotomy is adequate. 5. All r/b/a were discussed. 6. Patient consents to proceed. Raheel Mukherjee DPM Referring Provider: RAHEEL MUKHERJEE [[id number]] Allergies As of Date: 07/31/2018 (No Known Allergies) Date Reviewed: 07/31/2018 Reviewed by: Liset Diaz Ma - Fully Assessed Reason for Visit: Established Patient [175] Primary Visit Diagnosis:Post-operati ve state [Z98.890] Other Visit Diagnosis:Hammertoe of left foot [M20.42] Prescriptions as of 07/31/2018 Sig: CEPHALEXIN 500 MG CAPSULE Take 1 capsule by mouth three* CEPHALEXIN 500 MG CAPSULE Take 1 capsule by mouth three* CEPHALEXIN 500 MG CAPSULE Take 1 capsule by mouth three* PAROXETINE 30 MG TABLET TAKE 1 TABLET BY MOUTH DAILY LORATADINE 10 MG TABLET Take 1 tablet by mouth once d* TIZANIDINE 4 MG TABLET Take 1 tablet by mouth three * MELOXICAM 7.5 MG TABLET Take 1 tablet by mouth once d* CALCIUM CARBONATE 500 MG CALC* Take 1 tablet by mouth twice * CHOLECALCIFEROL (VITAMIN D3) * Take 1 capsule by mouth once * LEVOTHYROXINE 75 MCG TABLET TAKE 1 TABLET BY MOUTH DAILY * ULTICARE PEN NEEDLE 31 GAUGE * USE DIRECTED. WITH FORTEO Patient not taking: Reported on 06/19/2018 TERIPARATIDE 20 MCG/DOSE (600* Inject 20 mcg subcutaneously * Patient not taking: Reported on 06/19/2018 Problem List As Of Date 07/31/2018 Noted Resolved ANXIETY STATE NOS [F41.1] Thyroid cancer (HCC) [C73] INVALID FOR* More... Family history of colon cancer [Z80.0] INVALID FOR* More... Cervical spondylosis without myelopathy [M47.81*INVALID FOR* More... 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] INVALID FOR* Lumbar spondylosis [M47.816] INVALID FOR* More... Left hand weakness [R29.898] INVALID FOR* Depression [F32.9] INVALID FOR* More... Breast lump [N63.0] INVALID FOR* More... Tobacco abuse disorder [Z72.0] INVALID FOR* More... Left hip pain [M25.552] INVALID FOR* More... Insomnia [G47.00] INVALID FOR* More... Enthesopathy of hip region [M76.899] INVALID FOR* Degeneration of lumbar or lumbosacral intervert*INVALID FOR* More... Backache, unspecified [M54.9] INVALID FOR* Osteoporosis [M81.0] INVALID FOR* More... Polyp of colon [K63.5] INVALID FOR* More... Familial hypercholesterolemia [E78.01] INVALID FOR* More... Basal cell carcinoma [C44.91] INVALID FOR* More... Hypothyroidism [E03.9] INVALID FOR* More... Former smoker [Z87.891] INVALID FOR* More... Letter Text Encounter Status:Closed by RAHEEL MUKHERJEE DPM on 08/03/18 Normal [facility] PROGRESSon 07-31-2018 PROGRESS HNO ID: [id number] Author: Liset Diaz Ma Service: ? Author Type: ? Type: Progress Notes Filed: 08/03/2018 1:33 PM Note Text: AMB ROOMING INTAKE FLOWSHEET DATA Risk Screening Do you have concerns about personal safety or safety in the home?: No Patient presents to clinic for 46 days s/p 2nd, 3rd, and 5th hammertoe reconstruction. Patient states she has no pain. Normal [facility] PROGRESS HNO ID: [id number] Author: Ida (RtRandall Woods Service: ? Author Type: Shake Splitter Type: Progress Notes Filed: 07/31/2018 10:21 AM Note Text: Radiology Service Progress Note PATIENT NAME: Pina Ortega DATE OF SERVICE: July 31, 2018 TIME: 10:18 AM PATIENT IDENTITY VERIFICATION COMPLETED USING TWO (2) METHODS: Patient confirmed name verbally and Date of . PATIENT GENDER DATA: Female. status: : No status: NO. PATIENT RELEVANT IMPLANT DATA REVIEWED: Not Applicable RADIOLOGY DEPARTMENT: General X-ray: Exam(s) Completed: Lower Extremity X-Ray(s): Foot, Right and Wt. Bearing: PERIPHERAL IV DATA: Not applicable SIGNED BY: RT Steven July 31, 2018 10:18 AM [facility] XR FOOT 3V AP/LAT/OBL RTon 0 07-31-2018 XR FOOT 3V AP/LAT/OBL RT * * *Final Report* * * DATE OF EXAM: Jul 31 2018 10:18AM [id number] [id number] - XR FOOT 3V AP/LAT/OBL RT / PROCEDURE REASON: Post-operative state * * * * Physician Interpretation * * * * HISTORY: Postoperative right foot hammertoe ReVision TECHNIQUE: 3 upright views COMPARISON: 07/17/2018 RESULT: Arthroplasties of second through fifth digits are again noted, in satisfactory position. IMPRESSION: As in results Strategic Planner: GOLDY Transcribe Date/Time: Jul 31 2018 4:33P Dictated by : JOYCELYN BARKER MD This examination was interpreted and the report reviewed and electronically signed by: JOYCELYN BARKER MD on Jul 31 2018 5:13PM EST [id number] [facility] CNOVon 07-17-2018 CNOV Office Visit (PODIWS ) PINA ORTEGA ([id number]) 1960 F Date Time Provider Department 07/17/18 10:45 AM RAHEEL MUKHERJEE During your visit today, we recorded the following information about you: Liset Emily Alvarez 07/17/2018 11:01 AM Signed AMB ROOMING INTAKE FLOWSHEET DATA Risk Screening Do you have concerns about personal safety or safety in the home?: No Pain Pain Level: 7 Pain Location: Foot-Right Description: Sharp, Throbbing Duration Amount of Time: 2 Duration Units: Days Frequency: Continuous Intervention: Relaxation Patient presents to clinic for 32 days s/p 2nd, 3rd, 4th, and 5th hammertoe reconstruction. Patient states pins came out on Friday. States she feel on Friday and has been having pain since. Redness present. Raheel Mukherjee DPM 07/17/2018 11:01 AM Signed This 58 year old presents post op right 2nd, 3rd, 4th and 5th hammertoe correction. Pain level: 7/10 Vomiting, fever, chills, shortness of breath: no Pain Control: nsaids Weightbearing status: Full weightbearing in boot. Patient does report that she fell walking her dog the other day and is now in pain. She also states that she pulled her wires out the other day as they got caught on her bed. Objective: Incision to right 2nd toe has spitting suture. There is mostly healed incision of 2nd toe without drainage. Mild redness to 2nd toe likely due to increased activity. No drainage. Incision to right 3rd, 4th and 5th toe are healed. No redness to lesser toes. Lesser toes of right foot are rectus with no contracture. xrays reviewed. xrays show rectus presentation of 2nd-5th toes right foot Patient has no pain to palpation of right calf. Negative Baires's test. Assessment: (Z98.890) Post-operative state (primary encounter diagnosis) Plan: Patient was examined and informed of findings. She does have small area of redness of 2nd toe and spitting suture noted. This was removed with sterile instruments. Recommend neosporin and band aid. There is some redness. I suspect this is more from patient activity and less that of infection but will place patient on antibiotic. Her wires were removed this past week. xrays reviewed and show stable post-op findings. I want her to continue with boot for the next 2 weeks. Possible transition into regular shoe in two weeks Patient very pleased with outcome. Raheel Mukherjee DPM Referring Provider: RAHEEL MUKHERJEE [[id number]] Allergies As of Date: 07/17/2018 (No Known Allergies) Date Reviewed: 07/17/2018 Reviewed by: Liset Diaz Ma - Fully Assessed Reason for Visit: Established Patient [175] Primary Visit Diagnosis:Post-operati ve state [Z98.890] Order(s):XR FOOT GENERAL 3V AP/LAT/OBL RT [[id number]] Order #: [id number] FUTURE cephALEXin (KEFLEX) 500 mg capsuleTake 1 capsule by mouth three times daily.Disp: 21 capsuleRfl: 0 cephALEXin (KEFLEX) 500 mg capsuleTake 1 capsule by mouth three times daily.Disp: 21 capsuleRfl: 0 Prescriptions as of 07/17/2018 Sig: CEPHALEXIN 500 MG CAPSULE Take 1 capsule by mouth three* PAROXETINE 30 MG TABLET TAKE 1 TABLET BY MOUTH DAILY LORATADINE 10 MG TABLET Take 1 tablet by mouth once d* TIZANIDINE 4 MG TABLET Take 1 tablet by mouth three * MELOXICAM 7.5 MG TABLET Take 1 tablet by mouth once d* CALCIUM CARBONATE 500 MG CALC* Take 1 tablet by mouth twice * CHOLECALCIFEROL (VITAMIN D3) * Take 1 capsule by mouth once * LEVOTHYROXINE 75 MCG TABLET TAKE 1 TABLET BY MOUTH DAILY * CEPHALEXIN 500 MG CAPSULE Take 1 capsule by mouth three* CEPHALEXIN 500 MG CAPSULE Take 1 capsule by mouth three* ULTICARE PEN NEEDLE 31 GAUGE * USE DIRECTED. WITH FORTEO Patient not taking: Reported on 06/19/2018 TERIPARATIDE 20 MCG/DOSE (600* Inject 20 mcg subcutaneously * Patient not taking: Reported on 06/19/2018 Problem List As Of Date 07/17/2018 Noted Resolved ANXIETY STATE NOS [F41.1] Thyroid cancer (HCC) [C73] INVALID FOR* More... Family history of colon cancer [Z80.0] INVALID FOR* More... Cervical spondylosis without myelopathy [M47.81*INVALID FOR* More... 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] INVALID FOR* Lumbar spondylosis [M47.816] INVALID FOR* More... Left hand weakness [R29.898] INVALID FOR* Depression [F32.9] INVALID FOR* More... Breast lump [N63.0] INVALID FOR* More... Tobacco abuse disorder [Z72.0] INVALID FOR* More... Left hip pain [M25.552] INVALID FOR* More... Insomnia [G47.00] INVALID FOR* More... Enthesopathy of hip region [M76.899] INVALID FOR* Degeneration of lumbar or lumbosacral intervert*INVALID FOR* More... Backache, unspecified [M54.9] INVALID FOR* Osteoporosis [M81.0] INVALID FOR* More... Polyp of colon [K63.5] INVALID FOR* More... Familial hypercholesterolemia [E78.01] INVALID FOR* More... Basal cell carcinoma [C44.91] INVALID FOR* More... Hypothyroidism [E03.9] INVALID FOR* More... Former smoker [Z87.891] INVALID FOR* More... Prescriptions ordered this encounter Disp Refills Start End CEPHALEXIN 500 MG CAPSULE 21 c* 0 07/17/2018 Route: ORAL Sig: Take 1 capsule by mouth three times daily. CEPHALEXIN 500 MG CAPSULE 21 c* 0 07/17/2018 Route: ORAL Sig: Take 1 capsule by mouth three times daily. Disposition: Return in about 2 weeks (around 07/31/2018) for 46 days s/p 2nd, 3rd, 4th, and 5th toe hammertoes reconstruction. Follow-up and Disposition History Recorded Encounter Status:Closed by RAHEEL MUKHERJEE DPM on 07/17/18 [facility] PROGRESSon 07-17-2018 PROGRESS HNO ID: [id number] Author: Raheel Mukherjee Service: ? Author Type: Physician Type: Progress Notes Filed: 07/17/2018 11:01 AM Note Text: This 58 year old presents post op right 2nd, 3rd, 4th and 5th hammertoe correction. Pain level: 7/10 Vomiting, fever, chills, shortness of breath: no Pain Control: nsaids Weightbearing status: Full weightbearing in boot. Patient does report that she fell walking her dog the other day and is now in pain. She also states that she pulled her wires out the other day as they got caught on her bed. Objective: Incision to right 2nd toe has spitting suture. There is mostly healed incision of 2nd toe without drainage. Mild redness to 2nd toe likely due to increased activity. No drainage. Incision to right 3rd, 4th and 5th toe are healed. No redness to lesser toes. Lesser toes of right foot are rectus with no contracture. xrays reviewed. xrays show rectus presentation of 2nd-5th toes right foot Patient has no pain to palpation of right calf. Negative Baires's test. Assessment: (Z98.890) Post-operative state (primary encounter diagnosis) Plan: Patient was examined and informed of findings. She does have small area of redness of 2nd toe and spitting suture noted. This was removed with sterile instruments. Recommend neosporin and band aid. There is some redness. I suspect this is more from patient activity and less that of infection but will place patient on antibiotic. Her wires were removed this past week. xrays reviewed and show stable post-op findings. I want her to continue with boot for the next 2 weeks. Possible transition into regular shoe in two weeks Patient very pleased with outcome. Raheel Mukherjee DPM [facility] PROGRESS HNO ID: [id number] Author: Liset Diaz Ma Service: ? Author Type: ? Type: Progress Notes Filed: 07/17/2018 11:01 AM Note Text: AMB ROOMING INTAKE FLOWSHEET DATA Risk Screening Do you have concerns about personal safety or safety in the home?: No Pain Pain Level: 7 Pain Location: Foot-Right Description: Sharp, Throbbing Duration Amount of Time: 2 Duration Units: Days Frequency: Continuous Intervention: Relaxation Patient presents to clinic for 32 days s/p 2nd, 3rd, 4th, and 5th hammertoe reconstruction. Patient states pins came out on Friday. States she feel on Friday and has been having pain since. Redness present. Normal [facility] PROGRESS HNO ID: [id number] Author: Randall Harris (Rt) Service: ? Author Type: Shake Splitter Type: Progress Notes Filed: 07/17/2018 9:56 AM Note Text: Radiology Service Progress Note PATIENT NAME: Pina Ortega DATE OF SERVICE: July 17, 2018 TIME: 9:47 AM PATIENT IDENTITY VERIFICATION COMPLETED USING TWO (2) METHODS: Patient confirmed name verbally and Date of . PATIENT GENDER DATA: Female. status: : No status: NO. PATIENT RELEVANT IMPLANT DATA REVIEWED: Not Applicable RADIOLOGY DEPARTMENT: General X-ray: Exam(s) Completed: Lower Extremity X-Ray(s): Foot, Right and Wt. Bearing: PERIPHERAL IV DATA: Not applicable SIGNED BY: Ida Roper RT July 17, 2018 9:47 AM [facility] XR FOOT 3V AP/LAT/OBL RTon 0 07-17-2018 XR FOOT 3V AP/LAT/OBL RT * * *Final Report* * * DATE OF EXAM: Jul 17 2018 9:55AM WRX [id number] - XR FOOT 3V AP/LAT/OBL RT / PROCEDURE REASON: multiple diagnoses * * * * Physician Interpretation * * * * HISTORY: 58-YEAR-OLD FEMALE WITH Post-operative state Hammertoe of right foot . 1 month follow up to right foot surgery TECHNIQUE: XR FOOT 3V AP/LAT/OBL RT Laterality: RIGHT Number of different views (projections): 3 COMPARISON: RESULT: Resection of posterior PIP joint of the second through fifth digits. K wires of the second third digit been removed since the previous exam. Bone island in the proximal second metatarsal. Calcaneal enthesophyte scratch that small calcaneal enthesophyte insertion plantar fascia. Bones and joints of the foot otherwise normal with no erosions or fractures. There is osteopenia. IMPRESSION: RESECTION ARTHROPLASTIES OF SECOND THROUGH FIFTH DIGITS AT THE PIP JOINT. Strategic Planner: GOLDY Transcribe Date/Time: Jul 17 2018 3:02P Dictated by : FREDIS FOX MD This examination was interpreted and the report reviewed and electronically signed by: FREDIS FOX MD on Jul 17 2018 3:04PM EST [id number] Normal [facility] Metabolic Panel, Comprehensi ve ([id number])Ordered By: Soils Engineer on 07-13-2018 Albumin mass conc 4.5 g/dL Normal 3.5-5.5 Compreh ensive [facility] Medicine Work Phone: Comment on above: PATIENT NOT FASTINGP ERFORMED BY: [facility] HospitalLalszj9367 [facility] [id number] Albumin/Globulin mass ratio 1.8 {ratio} Normal 1.2-2.2 [facility] Work Phone: Comment on above: PATIENT NOT FASTINGP ERFORMED BY: CB [facility] Lnddmb3641 [address] [place] [id number] ALP [Catalytic activity/Vol] 108 U/L Normal 39-117 [facility]; [facility] Internal Medicine Work Phone: Comment on above: PATIENT NOT FASTINGP ERFORMED BY: CB [facility] Veaofm7571 [address] [place] [id number] ALP enzyme act/vol 108 [iU]/L Normal 39-117 [facility] Internal Medicine Work Phone: Comment on above: PATIENT NOT FASTINGP ERFORMED BY: CB [facility] Ewfvxx9567 [address] [place] [id number] ALT [Catalytic activity/Vol] 14 U/L Normal 0-32 [facility]; [facility] Internal Medicine Work Phone: Comment on above: PATIENT NOT FASTINGP ERFORMED BY: CB [facility] Jnmzhv7565 [address] [place] [id number] ALT enzyme act/vol 14 [iU]/L Normal 0-32 [facility] Internal Medicine Work Phone: Comment on above: PATIENT NOT FASTINGP ERFORMED BY: CB [facility] Jzslay0062 [address] [place] [id number] AST [Catalytic activity/Vol] 15 U/L Normal 0-40 [facility] Internal Medicine; [facility] Internal Medicine Work Phone: Comment on above: PATIENT NOT FASTINGP ERFORMED BY: CB [facility] Kjfeok5050 [address] [place] [id number] AST enzyme act/vol 15 [iU]/L Normal 0-40 [facility] Internal Medicine Work Phone: Comment on above: PATIENT NOT FASTINGP ERFORMED BY: CB [facility] Trhxbj9924 [address] [place] [id number] Bilirubin mass conc 0.4 mg/dL Normal 0.0-1.2 [facility] Internal Medicine Work Phone: Comment on above: PATIENT NOT FASTINGP ERFORMED BY: CB [facility] Tpaaku0646 [address] [place] [id number] Calcium mass conc 9.9 mg/dL Normal 8.7-10.2 Compreh ensive [facility] Work Phone: Comment on above: PATIENT NOT FASTINGP ERFORMED BY: CB [facility] Bpfvzz7691 [address] [place] [id number] Chloride molar conc 99 mmol/L Normal 96-106 Compr ehensive [facility] Medicine Work Phone: Comment on above: PATIENT NOT FASTINGP ERFORMED BY: CB [facility] Wccinx3060 [address] [place] [id number] CO2 molar conc 25 mmol/L Normal 20-29 Comprehens shaheen Internal Medicine Work Phone: Comment on above: PATIENT NOT FASTINGP ERFORMED BY: CB [facility] Jbsgvs2510 [address] [place] [id number] Creatinine mass conc 0.76 mg/dL Normal 0.57-1.00 Comp rehensive Internal Medicine Work Phone: Comment on above: PATIENT NOT FASTINGP ERFORMED BY: CB [facility] Ucznjq8550 [address] [place] [id number] GFR/1.73 sq M predicted among blacks CKD-EPI vol rate/area (S/P/Bld) 100 mL/min/1.73 Normal [facility] Work Phone: Comment on above: PATIENT NOT FASTINGP ERFORMED BY: CB [facility] Pvlqgg6172 [address] [place] [id number] GFR/1.73 sq M predicted among non-blacks CKD-EPI vol rate/area (S/P/Bld) 87 mL/min/1.73 Normal Comprehensiv e [facility] Medicine Work Phone: Comment on above: PATIENT NOT FASTINGP ERFORMED BY: CB [facility] Cjksjy5815 [address] [place] [id number] Globulin mass conc (S) 2.5 g/dL Normal 1.5-4.5 [facility] Work Phone: Comment on above: PATIENT NOT FASTINGP ERFORMED BY: CB [facility] Grlglq2723 [address] [place] [id number] Glucose mass conc 72 mg/dL Normal 65-99 Compreh ensive [facility] Work Phone: Comment on above: PATIENT NOT FASTINGP ERFORMED BY: CB [facility] Bvfpvl5912 [address] [place] [id number] Potassium molar conc 4.3 mmol/L Normal 3.5-5.2 Comp rehensive Internal Medicine Work Phone: Comment on above: PATIENT NOT FASTINGP ERFORMED BY: CB [facility] Arzalx0499 [address] [place] [id number] Protein mass conc 7.0 g/dL Normal 6.0-8.5 Compreh ensive [facility] Work Phone: Comment on above: PATIENT NOT FASTINGP ERFORMED BY: CB [facility] Ibpaqa0444 [address] [place] [id number] Sodium molar conc 140 mmol/L Normal 134-144 Compreh ensive [facility] Work Phone: Comment on above: PATIENT NOT FASTINGP ERFORMED BY: CB [facility] Tenvow2935 [address] [place] [id number] Urea nitrogen mass conc 19 mg/dL Normal 6-24 [facility] Work Phone: Comment on above: PATIENT NOT FASTINGP ERFORMED BY: CB [facility] Tygtli5909 [address] [place] [id number] Urea nitrogen/Creatinine mass ratio 25 mg/mg Abnormal 9-23 [facility] Work Phone: Comment on above: PATIENT NOT FASTINGP ERFORMED BY: CB [facility] Bouvso6576 [address] [place] [id number] PROGRESSon 07-12-2018 PROGRESS HNO ID: [id number] Author: Raheel Mukherjee Service: ? Author Type: Physician Type: Progress Notes Filed: 07/11/2018 10:08 PM Note Text: This 58 year old presents post op right 2nd, 3rd, 4th and 5th hammertoe correction Pain level: 0/10 Vomiting, fever, chills, shortness of breath: no Pain Control: Percocet as needed Weightbearing status: Partial weighhbearing with surgical shoes. Objective: Incision site is now healed to toes 2-5 right foot. no evidence of dehiscence. No erythema is noted. No signs of infection. No drainage. No lymphadenopathy. No lymphangitis. No surrounding cellulitis. Patient has no pain to palpation of right calf. Negative Baires's test. Assessment: (Z98.890) Post-operative state (primary encounter diagnosis) (M20.41) Hammertoe of right foot Plan: Patient was examined and informed of findings Prior wound dehiscence now appears healed. I still want patient to execute caution on how active she is. Will plan for follow-up in one week with new xrays. Possible removal of wires in one week pending xrays Raheel Mukherjee DPM [facility] CNOVon 07-10-2018 CNOV Office Visit (PODIWS ) PINA ORTEGA ([id number]) 1960 F Date Time Provider Department 07/10/18 9:50 AM RAHEEL MUKHERJEE PODIWS During your visit today, we recorded the following information about you: Noemi Coronel RN 07/11/2018 10:08 PM Signed AMB ROOMING INTAKE FLOWSHEET DATA Risk Screening Do you have concerns about personal safety or safety in the home?: No Patient presents with: Surgical Followup: 25 days s/p R 2-5 hammertoe reconstruction Patient denies any pain, she states she is no longer taking her Percocet. She continues to wear boot and presents to clinic fully WB. Raheel Mukherjee DPM 07/11/2018 10:08 PM Signed This 58 year old presents post op right 2nd, 3rd, 4th and 5th hammertoe correction Pain level: 0/10 Vomiting, fever, chills, shortness of breath: no Pain Control: Percocet as needed Weightbearing status: Partial weighhbearing with surgical shoes. Objective: Incision site is now healed to toes 2-5 right foot. no evidence of dehiscence. No erythema is noted. No signs of infection. No drainage. No lymphadenopathy. No lymphangitis. No surrounding cellulitis. Patient has no pain to palpation of right calf. Negative Baires's test. Assessment: (Z98.890) Post-operative state (primary encounter diagnosis) (M20.41) Hammertoe of right foot Plan: Patient was examined and informed of findings Prior wound dehiscence now appears healed. I still want patient to execute caution on how active she is. Will plan for follow-up in one week with new xrays. Possible removal of wires in one week pending xrays Raheel Mukherjee DPM Referring Provider: RAHEEL MUKHERJEE [[id number]] Allergies As of Date: 07/10/2018 (No Known Allergies) Date Reviewed: 07/10/2018 Reviewed by: Noemi Coronel RN - Fully Assessed Reason for Visit: Surgical Followup [104] Cmt: 25 days s/p R 2-5 hammertoe reconstruction Primary Visit Diagnosis:Post-operati ve state [Z98.890] Other Visit Diagnosis:Hammertoe of right foot [M20.41] Order(s):XR FOOT GENERAL 3V AP/LAT/OBL RT [[id number]] Order #: [id number] FUTURE Prescriptions as of 07/10/2018 Sig: CEPHALEXIN 500 MG CAPSULE Take 1 capsule by mouth three* OXYCODONE-ACETAMINOPHE N 5 MG-* Take 1 tablet by mouth every * PAROXETINE 30 MG TABLET TAKE 1 TABLET BY MOUTH DAILY LORATADINE 10 MG TABLET Take 1 tablet by mouth once d* TIZANIDINE 4 MG TABLET Take 1 tablet by mouth three * MELOXICAM 7.5 MG TABLET Take 1 tablet by mouth once d* CALCIUM CARBONATE 500 MG CALC* Take 1 tablet by mouth twice * CHOLECALCIFEROL (VITAMIN D3) * Take 1 capsule by mouth once * LEVOTHYROXINE 75 MCG TABLET TAKE 1 TABLET BY MOUTH DAILY * ULTICARE PEN NEEDLE 31 GAUGE * USE DIRECTED. WITH FORTEO Patient not taking: Reported on 06/19/2018 TERIPARATIDE 20 MCG/DOSE (600* Inject 20 mcg subcutaneously * Patient not taking: Reported on 06/19/2018 Problem List As Of Date 07/10/2018 Noted Resolved ANXIETY STATE NOS [F41.1] Thyroid cancer (HCC) [C73] INVALID FOR* More... Family history of colon cancer [Z80.0] INVALID FOR* More... Cervical spondylosis without myelopathy [M47.81*INVALID FOR* More... 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] INVALID FOR* Lumbar spondylosis [M47.816] INVALID FOR* More... Left hand weakness [R29.898] INVALID FOR* Depression [F32.9] INVALID FOR* More... Breast lump [N63.0] INVALID FOR* More... Tobacco abuse disorder [Z72.0] INVALID FOR* More... Left hip pain [M25.552] INVALID FOR* More... Insomnia [G47.00] INVALID FOR* More... Enthesopathy of hip region [M76.899] INVALID FOR* Degeneration of lumbar or lumbosacral intervert*INVALID FOR* More... Backache, unspecified [M54.9] INVALID FOR* Osteoporosis [M81.0] INVALID FOR* More... Polyp of colon [K63.5] INVALID FOR* More... Familial hypercholesterolemia [E78.01] INVALID FOR* More... Basal cell carcinoma [C44.91] INVALID FOR* More... Hypothyroidism [E03.9] INVALID FOR* More... Former smoker [Z87.891] INVALID FOR* More... Disposition: Return in about 1 week (around 07/17/2018) for 32 days post hammertoe correction. Follow-up and Disposition History Recorded Encounter Status:Closed by RAHEEL MUKHERJEE DPM on 07/11/18 [facility] PROGRESSon 07-10-2018 PROGRESS HNO ID: [id number] Author: Noemi Coronel RN Service: ? Author Type: ? Type: Progress Notes Filed: 07/11/2018 10:08 PM Note Text: AMB ROOMING INTAKE FLOWSHEET DATA Risk Screening Do you have concerns about personal safety or safety in the home?: No Patient presents with: Surgical Followup: 25 days s/p R 2-5 hammertoe reconstruction Patient denies any pain, she states she is no longer taking her Percocet. She continues to wear boot and presents to clinic fully WB. [facility] PROGRESSon 07-05-2018 PROGRESS HNO ID: [id number] Author: Raheel Mukherjee Service: ? Author Type: Physician Type: Progress Notes Filed: 07/05/2018 9:03 PM Note Text: This 58 year old presents post op right 2nd, 3rd, 4th and 5th hammertoe correction. Pain level: 0//10 Vomiting, fever, chills, shortness of breath: no Pain Control: percocet Weightbearing status: Full weightbearing in surgical shoe. Patient reports that over the past week, she has been very active. She is cleaning her house and walking her dogs. 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 She is more active than she should be. Objective: Incisions to right 3rd toe are healed. Incisions to right 2nd, 3rd and 5th toe show superficial dehiscence without drainage or infection. No redness, no drainage, no exposed bone or tendon. No lymphadenopathy. No lymphangitis. No surrounding cellulitis. Patient has no pain to palpation of right calf. Negative Baires's test. Assessment: (Z98.890) Post-operative state (primary encounter diagnosis) (M20.41) Hammertoe of right foot Plan: Patient was examined and informed of current findings She is 18 days post-op. Suture was removed. The incision to right 3rd toe is healed. There is eschar along dorsal 2nd, 3rd and 5th toe. These were debrided. There is superficial dehiscence of 2nd, 3rd and 5th toes without infection. She is being too active. Informed patient that if she is too active, she will swell and will have slower than usual healing. If her wounds fail to heal, she could be at risk of nonunion or amputation. She needs to be less active and take more care for her foot. Will place her on antibiotic as precaution. She will apply steres to her toes. F/u in 1 week Raheel Mukherjee DPM [facility] CNOVon 07-03-2018 CNOV Office Visit (PODIWS ) PINA ORTEGA ([id number]) 1960 F Date Time Provider Department 07/03/18 10:45 AM RAHEEL MUKHERJEE During your visit today, we recorded the following information about you: Liset Macielkarol Alvarez 07/05/2018 9:03 PM Signed AMB ROOMING INTAKE FLOWSHEET DATA Risk Screening Do you have concerns about personal safety or safety in the home?: No Patient presents to clinic for 18 days s/p R 2-5 hammertoe reconstruction. Patient states she has no pain. No discoloration or swelling present. Noemi Coronel RN 07/03/2018 11:08 AM Signed Leave Steri Strips in place. If they fall off, reapply Raheel Mukherjee DPM 07/05/2018 9:03 PM Signed This 58 year old presents post op right 2nd, 3rd, 4th and 5th hammertoe correction. Pain level: 0//10 Vomiting, fever, chills, shortness of breath: no Pain Control: percocet Weightbearing status: Full weightbearing in surgical shoe. Patient reports that over the past week, she has been very active. She is cleaning her house and walking her dogs. 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 She is more active than she should be. Objective: Incisions to right 3rd toe are healed. Incisions to right 2nd, 3rd and 5th toe show superficial dehiscence without drainage or infection. No redness, no drainage, no exposed bone or tendon. No lymphadenopathy. No lymphangitis. No surrounding cellulitis. Patient has no pain to palpation of right calf. Negative Baires's test. Assessment: (Z98.890) Post-operative state (primary encounter diagnosis) (M20.41) Hammertoe of right foot Plan: Patient was examined and informed of current findings She is 18 days post-op. Suture was removed. The incision to right 3rd toe is healed. There is eschar along dorsal 2nd, 3rd and 5th toe. These were debrided. There is superficial dehiscence of 2nd, 3rd and 5th toes without infection. She is being too active. Informed patient that if she is too active, she will swell and will have slower than usual healing. If her wounds fail to heal, she could be at risk of nonunion or amputation. She needs to be less active and take more care for her foot. Will place her on antibiotic as precaution. She will apply steres to her toes. F/u in 1 week Raheel Mukherjee DPM Referring Provider: RAHEEL MUKHERJEE [[id number]] Allergies As of Date: 07/03/2018 (No Known Allergies) Date Reviewed: 07/03/2018 Reviewed by: Liset Diaz Ma - Fully Assessed Reason for Visit: Surgical Followup [104] Established Patient [175] Primary Visit Diagnosis:Post-operati ve state [Z98.890] Other Visit Diagnosis:Hammertoe of right foot [M20.41] Order(s):cephALEXin (KEFLEX) 500 mg capsuleTake 1 capsule by mouth three times daily.Disp: 21 capsuleRfl: 0 oxyCODONE-acetaminophe n (PERCOCET) 5-325 mg tabletTake 1 tablet by mouth every 8 hours as needed for up to 7 days.Disp: 21 tabletRfl: 0 Prescriptions as of 07/03/2018 Sig: OXYCODONE-ACETAMINOPHE N 5 MG-* Take 1 tablet by mouth every * PAROXETINE 30 MG TABLET TAKE 1 TABLET BY MOUTH DAILY LORATADINE 10 MG TABLET Take 1 tablet by mouth once d* TIZANIDINE 4 MG TABLET Take 1 tablet by mouth three * MELOXICAM 7.5 MG TABLET Take 1 tablet by mouth once d* CALCIUM CARBONATE 500 MG CALC* Take 1 tablet by mouth twice * CHOLECALCIFEROL (VITAMIN D3) * Take 1 capsule by mouth once * LEVOTHYROXINE 75 MCG TABLET TAKE 1 TABLET BY MOUTH DAILY * CEPHALEXIN 500 MG CAPSULE Take 1 capsule by mouth three* OXYCODONE-ACETAMINOPHE N 5 MG-* Take 1 tablet by mouth every * ULTICARE PEN NEEDLE 31 GAUGE * USE DIRECTED. WITH FORTEO Patient not taking: Reported on 06/19/2018 TERIPARATIDE 20 MCG/DOSE (600* Inject 20 mcg subcutaneously * Patient not taking: Reported on 06/19/2018 Problem List As Of Date 07/03/2018 Noted Resolved ANXIETY STATE NOS [F41.1] Thyroid cancer (HCC) [C73] INVALID FOR* More... Family history of colon cancer [Z80.0] INVALID FOR* More... Cervical spondylosis without myelopathy [M47.81*INVALID FOR* More... 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] INVALID FOR* Lumbar spondylosis [M47.816] INVALID FOR* More... Left hand weakness [R29.898] INVALID FOR* Depression [F32.9] INVALID FOR* More... Breast lump [N63.0] INVALID FOR* More... Tobacco abuse disorder [Z72.0] INVALID FOR* More... Left hip pain [M25.552] INVALID FOR* More... Insomnia [G47.00] INVALID FOR* More... Enthesopathy of hip region [M76.899] INVALID FOR* Degeneration of lumbar or lumbosacral intervert*INVALID FOR* More... Backache, unspecified [M54.9] INVALID FOR* Osteoporosis [M81.0] INVALID FOR* More... Polyp of colon [K63.5] INVALID FOR* More... Familial hypercholesterolemia [E78.01] INVALID FOR* More... Basal cell carcinoma [C44.91] INVALID FOR* More... Hypothyroidism [E03.9] INVALID FOR* More... Former smoker [Z87.891] INVALID FOR* More... Other instructions from your clinician: Leave Steri Strips in place. If they fall off, reapply Prescriptions ordered this encounter Disp Refills Start End CEPHALEXIN 500 MG CAPSULE 21 c* 0 07/03/2018 Route: ORAL Sig: Take 1 capsule by mouth three times daily. OXYCODONE-ACETAMINOPHE N 5 MG-325 MG * 21 t* 0 07/03/2018 07/10/2018 Class: Print RX Cmt: Post-op pain Route: ORAL Sig: Take 1 tablet by mouth every 8 hours as needed for up to 7 days. Encounter Status:Closed by RAHEEL MUKHERJEE DPM on 07/05/18 [facility] PROGRESSon 07-03-2018 PROGRESS HNO ID: [id number] Author: Liset Diaz Ma Service: ? Author Type: ? Type: Progress Notes Filed: 07/05/2018 9:03 PM Note Text: AMB ROOMING INTAKE FLOWSHEET DATA Risk Screening Do you have concerns about personal safety or safety in the home?: No Patient presents to clinic for 18 days s/p R 2-5 hammertoe reconstruction. Patient states she has no pain. No discoloration or swelling present. [facility] PROGRESSon 06-30-2018 PROGRESS HNO ID: [id number] Author: Raheel Mukherjee Service: ? Author Type: Physician Type: Progress Notes Filed: 06/30/2018 9:29 PM Note Text: This 58 year old presents post op right 2nd dip fusion, right 3rd and 4th pipj fusion and right derotational arthroplasty. Pain level: 8/10 Vomiting, fever, chills, shortness of breath: no Pain Control: Pain medication Weightbearing status: Partial weightbearing with surgical shoe Objective: Incision site is well coapted with no evidence of dehiscence. Mild erythema and edema surrounding surgical site. No drainage. No lymphadenopathy. No lymphangitis. No surrounding cellulitis. 4th toe kwire has retracted distally. Patient has no pain to palpation of right calf. Negative Baires's test. Assessment: (M20.41) Hammertoe of right foot (primary encounter diagnosis) (Z98.890) Post-operative state Plan: Patient was examined and informed of current findings Discussed appearance of right foot. Toes of right foot 2-5 appear rectus. On exam, the 4th toe appears migrated and well beyond expected fusion of pipj. Discussed options not limited to repositioning wire which would increase risk of infection, revised surgery vs removing kwire and splinting toe. Patient opts for removal of wire and splinting toe. Informed patient that it is likely due to soft bone which resulted in lost kwire. She understands there is risk of nonunion. She understands this and accepts the risk. Will have her repeat xrays today. Will plan for possible suture removal next week and removal of remaining wires in 2 -3 weeks. Refilled pain meds. Patient satisfied with care Raheel Mukherjee DPM [facility] CNOVon 06-26-2018 CNOV Office Visit (PODIWS ) PINA ORTEGA ([id number]) 1960 F Date Time Provider Department 06/26/18 10:45 AM RAHEEL MUKHERJEE During your visit today, we recorded the following information about you: Liset Diaz Kim 06/30/2018 9:29 PM Signed AMB ROOMING INTAKE FLOWSHEET DATA Risk Screening Do you have concerns about personal safety or safety in the home?: No Pain Pain Level: 8 Pain Location: Foot-Right Description: Sharp, Burning Duration Amount of Time: 11 Duration Units: Days Frequency: Continuous Intervention: Relaxation Patient presents to clinic for 11 days s/p R 2-5 hammertoe reconstruction. Patient states she is out of medication and is having pain due to that. No redness present. Raheel Mukherjee DPM 06/30/2018 9:29 PM Signed This 58 year old presents post op right 2nd dip fusion, right 3rd and 4th pipj fusion and right derotational arthroplasty. Pain level: 8/10 Vomiting, fever, chills, shortness of breath: no Pain Control: Pain medication Weightbearing status: Partial weightbearing with surgical shoe Objective: Incision site is well coapted with no evidence of dehiscence. Mild erythema and edema surrounding surgical site. No drainage. No lymphadenopathy. No lymphangitis. No surrounding cellulitis. 4th toe kwire has retracted distally. Patient has no pain to palpation of right calf. Negative Baires's test. Assessment: (M20.41) Hammertoe of right foot (primary encounter diagnosis) (Z98.890) Post-operative state Plan: Patient was examined and informed of current findings Discussed appearance of right foot. Toes of right foot 2-5 appear rectus. On exam, the 4th toe appears migrated and well beyond expected fusion of pipj. Discussed options not limited to repositioning wire which would increase risk of infection, revised surgery vs removing kwire and splinting toe. Patient opts for removal of wire and splinting toe. Informed patient that it is likely due to soft bone which resulted in lost kwire. She understands there is risk of nonunion. She understands this and accepts the risk. Will have her repeat xrays today. Will plan for possible suture removal next week and removal of remaining wires in 2 -3 weeks. Refilled pain meds. Patient satisfied with care Raheel Mukherjee DPM Referring Provider: RAHEEL MUKHERJEE [[id number]] Allergies As of Date: 06/26/2018 (No Known Allergies) Date Reviewed: 06/26/2018 Reviewed by: Liset Diaz Ma - Fully Assessed Reason for Visit: Surgical Followup [104] Primary Visit Diagnosis:Hammertoe of right foot [M20.41] Other Visit Diagnosis:Post-operati ve state [Z98.890] Order(s):oxyCODONE-yahaira taminophen (PERCOCET) 5-325 mg tabletTake 1 tablet by mouth every 8 hours as needed for up to 7 days.Disp: 21 tabletRfl: 0 Prescriptions as of 06/26/2018 Sig: PAROXETINE 30 MG TABLET TAKE 1 TABLET BY MOUTH DAILY LORATADINE 10 MG TABLET Take 1 tablet by mouth once d* TIZANIDINE 4 MG TABLET Take 1 tablet by mouth three * MELOXICAM 7.5 MG TABLET Take 1 tablet by mouth once d* CALCIUM CARBONATE 500 MG CALC* Take 1 tablet by mouth twice * CHOLECALCIFEROL (VITAMIN D3) * Take 1 capsule by mouth once * LEVOTHYROXINE 75 MCG TABLET TAKE 1 TABLET BY MOUTH DAILY * OXYCODONE-ACETAMINOPHE N 5 MG-* Take 1 tablet by mouth every * ULTICARE PEN NEEDLE 31 GAUGE * USE DIRECTED. WITH FORTEO Patient not taking: Reported on 06/19/2018 TERIPARATIDE 20 MCG/DOSE (600* Inject 20 mcg subcutaneously * Patient not taking: Reported on 06/19/2018 Problem List As Of Date 06/26/2018 Noted Resolved ANXIETY STATE NOS [F41.1] Thyroid cancer (HCC) [C73] INVALID FOR* More... Family history of colon cancer [Z80.0] INVALID FOR* More... Cervical spondylosis without myelopathy [M47.81*INVALID FOR* More... 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] INVALID FOR* Lumbar spondylosis [M47.816] INVALID FOR* More... Left hand weakness [R29.898] INVALID FOR* Depression [F32.9] INVALID FOR* More... Breast lump [N63.0] INVALID FOR* More... Tobacco abuse disorder [Z72.0] INVALID FOR* More... Left hip pain [M25.552] INVALID FOR* More... Insomnia [G47.00] INVALID FOR* More... Enthesopathy of hip region [M76.899] INVALID FOR* Degeneration of lumbar or lumbosacral intervert*INVALID FOR* More... Backache, unspecified [M54.9] INVALID FOR* Osteoporosis [M81.0] INVALID FOR* More... Polyp of colon [K63.5] INVALID FOR* More... Familial hypercholesterolemia [E78.01] INVALID FOR* More... Basal cell carcinoma [C44.91] INVALID FOR* More... Hypothyroidism [E03.9] INVALID FOR* More... Former smoker [Z87.891] INVALID FOR* More... Prescriptions ordered this encounter Disp Refills Start End OXYCODONE-ACETAMINOPHE N 5 MG-325 MG * 21 t* 0 06/26/2018 07/03/2018 Class: Print RX Cmt: Post-op pain Route: ORAL Sig: Take 1 tablet by mouth every 8 hours as needed for up to 7 days. Encounter Status:Closed by RAHEEL MUKHERJEE DPM on 06/30/18 [facility] PROGRESSon 06-26-2018 PROGRESS HNO ID: [id number] Author: Angelique Kaminski Service: ? Author Type: ? Type: Progress Notes Filed: 06/26/2018 11:09 AM Note Text: Radiology Service Progress Note PATIENT NAME: Pina Ortega DATE OF SERVICE: June 26, 2018 TIME: 10:58 AM PATIENT IDENTITY VERIFICATION COMPLETED USING TWO (2) METHODS: Patient confirmed name verbally and Date of . PATIENT GENDER DATA: Female. status: : No status: NO. PATIENT RELEVANT IMPLANT DATA REVIEWED: Not Applicable RADIOLOGY DEPARTMENT: General X-ray: Exam(s) Completed: Lower Extremity X-Ray(s): Foot, Right and Wt. Bearing: PERIPHERAL IV DATA: Not applicable SIGNED BY: Angelique Kaminski June 26, 2018 10:58 AM [facility] PROGRESS HNO ID: [id number] Author: Liset Diaz Ma Service: ? Author Type: ? Type: Progress Notes Filed: 06/30/2018 9:29 PM Note Text: AMB ROOMING INTAKE FLOWSHEET DATA Risk Screening Do you have concerns about personal safety or safety in the home?: No Pain Pain Level: 8 Pain Location: Foot-Right Description: Sharp, Burning Duration Amount of Time: 11 Duration Units: Days Frequency: Continuous Intervention: Relaxation Patient presents to clinic for 11 days s/p R 2-5 hammertoe reconstruction. Patient states she is out of medication and is having pain due to that. No redness present. [facility] XR FOOT 3V AP/LAT/OBL RTon 0 06-26-2018 XR FOOT 3V AP/LAT/OBL RT * * *Final Report* * * DATE OF EXAM: Jun 26 2018 11:09AM [id number] - XR FOOT 3V AP/LAT/OBL RT / PROCEDURE REASON: Hammertoe of right foot * * * * Physician Interpretation * * * * HISTORY: 58-YEAR-OLD FEMALE with Hammertoe of right foot . recheck right 2 \EandE\ 3rd hammer toe repair healing TECHNIQUE: XR FOOT 3V AP/LAT/OBL RT Laterality: RIGHT Number of different views (projections): 3 COMPARISON: 06/15/2018 RESULT: Status post resection of posterior the PIP joint of the second digit and PIP joint of the third and fourth digit with K wires remaining in the second third digit and removed at the fourth digit. There is a resection arthroplasty of the PIP joint of fifth digit. Narrowing the IP joint of the great toe. Foot is otherwise unchanged. Osteopenia. IMPRESSION: REMOVAL OF K WIRE AT THE FOURTH DIGIT WITH MULTIPLE RESECTION ARTHROPLASTIES. Strategic Planner: GOLDY Transcribe Date/Time: Jun 27 2018 7:27P Dictated by : FREDIS FOX MD This examination was interpreted and the report reviewed and electronically signed by: FREDIS FOX MD on Jun 27 2018 7:28PM EST [id number] [facility] PROGRESSon 06-21-2018 PROGRESS HNO ID: [id number] Author: Raheel Mukherjee Service: ? Author Type: Physician Type: Progress Notes Filed: 06/21/2018 9:38 AM Note Text: DOS: 06/15/18 POD: 4 POV: 1 Surgical side: right This 58 year old presents post op right 2nd, 3rd ,4th and 5th hammertoe reconstruction Pain level: 4/10 Vomiting, fever, chills, shortness of breath: no Pain Control: Pain medication Weightbearing status: Partial weightbearing to right foot with surgical shoe Objective: Incision site is well coapted with no evidence of dehiscence. Mild erythema and edema surrounding surgical site. No drainage. No lymphadenopathy. No lymphangitis. No surrounding cellulitis. Surgical correction appears maintained. The wire to right 4th toe appears to have migrated slightly clinically. Correction appears maintained. Patient has no pain to palpation of right calf. Negative Baires's test. Assessment: (M20.41) Hammertoe of right foot (primary encounter diagnosis) Plan: Patient was examined and informed of current findings She is 4 days s/p hammertoe reconstruction. Toes appear rectus without signs of infection. The k-wire traversing the 4th toe does appear that it could have migrated distally. Correction is still maintained. I am going to splint all toes in rectus position. Discussed risk of wire migration given soft bone. If wire were to retract, she is not to place back in. I am going to order xray. Patient very pleased with correction. Continue with surgical shoe. Keep toes clean and dry, do no soak. F/u in 1 week Raheel Mukherjee DPM [facility] CNOVon 06-19-2018 CNOV Office Visit (PODIWS ) PINA ORTEGA ([id number]) 1960 F Date Time Provider Department 06/19/18 10:45 AM RAHEEL MUKHERJEE During your visit today, we recorded the following information about you: Raheel Mukherjee DPM 06/21/2018 9:38 AM Signed AMB ROOMING INTAKE FLOWSHEET DATA Risk Screening Do you have concerns about personal safety or safety in the home?: No Pain Pain Level: 4 Pain Location: Foot-Right Description: Sharp Duration Amount of Time: 4 Duration Units: Days Frequency: Intermittent Intervention: Reposition, Relaxation, Medication(Percocet) Patient presents with: Surgical Followup: 4 days post R 2nd PIPJ arthroplasty and R 5th derotational arthroplasty Patient states she is doing well, she only has pain if she moves her toes a certain way. She is taking Percocet as prescribed and states it is helping control her pain. She is wearing her post op shoe and using a cane. Reports that she took a shower yesterday but avoided getting her foot wet. Raheel Mukherjee DPM 06/21/2018 9:38 AM Signed DOS: 06/15/18 POD: 4 POV: 1 Surgical side: right This 58 year old presents post op right 2nd, 3rd ,4th and 5th hammertoe reconstruction Pain level: 4/10 Vomiting, fever, chills, shortness of breath: no Pain Control: Pain medication Weightbearing status: Partial weightbearing to right foot with surgical shoe Objective: Incision site is well coapted with no evidence of dehiscence. Mild erythema and edema surrounding surgical site. No drainage. No lymphadenopathy. No lymphangitis. No surrounding cellulitis. Surgical correction appears maintained. The wire to right 4th toe appears to have migrated slightly clinically. Correction appears maintained. Patient has no pain to palpation of right calf. Negative Baires's test. Assessment: (M20.41) Hammertoe of right foot (primary encounter diagnosis) Plan: Patient was examined and informed of current findings She is 4 days s/p hammertoe reconstruction. Toes appear rectus without signs of infection. The k-wire traversing the 4th toe does appear that it could have migrated distally. Correction is still maintained. I am going to splint all toes in rectus position. Discussed risk of wire migration given soft bone. If wire were to retract, she is not to place back in. I am going to order xray. Patient very pleased with correction. Continue with surgical shoe. Keep toes clean and dry, do no soak. F/u in 1 week Raheel Mukherjee DPM Referring Provider: RAHEEL MUKHERJEE [[id number]] Allergies As of Date: 06/19/2018 (No Known Allergies) Date Reviewed: 06/19/2018 Reviewed by: Noemi Coronel RN - Fully Assessed Reason for Visit: Surgical Followup [104] Cmt: 4 days post R 2nd PIPJ arthroplasty and R 5th derotational arthroplasty Primary Visit Diagnosis:Hammertoe of right foot [M20.41] Order(s):XR FOOT GENERAL 3V AP/LAT/OBL RT [[id number]] Order #: [id number] FUTURE Prescriptions as of 06/19/2018 Sig: OXYCODONE-ACETAMINOPHE N 5 MG-* Take 1 tablet by mouth every * PAROXETINE 30 MG TABLET TAKE 1 TABLET BY MOUTH DAILY LORATADINE 10 MG TABLET Take 1 tablet by mouth once d* TIZANIDINE 4 MG TABLET Take 1 tablet by mouth three * MELOXICAM 7.5 MG TABLET Take 1 tablet by mouth once d* CALCIUM CARBONATE 500 MG CALC* Take 1 tablet by mouth twice * CHOLECALCIFEROL (VITAMIN D3) * Take 1 capsule by mouth once * LEVOTHYROXINE 75 MCG TABLET TAKE 1 TABLET BY MOUTH DAILY * ULTICARE PEN NEEDLE 31 GAUGE * USE DIRECTED. WITH FORTEO Patient not taking: Reported on 06/19/2018 TERIPARATIDE 20 MCG/DOSE (600* Inject 20 mcg subcutaneously * Patient not taking: Reported on 06/19/2018 Problem List As Of Date 06/19/2018 Noted Resolved ANXIETY STATE NOS [F41.1] Thyroid cancer (HCC) [C73] INVALID FOR* More... Family history of colon cancer [Z80.0] INVALID FOR* More... Cervical spondylosis without myelopathy [M47.81*INVALID FOR* More... 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] INVALID FOR* Lumbar spondylosis [M47.816] INVALID FOR* More... Left hand weakness [R29.898] INVALID FOR* Depression [F32.9] INVALID FOR* More... Breast lump [N63.0] INVALID FOR* More... Tobacco abuse disorder [Z72.0] INVALID FOR* More... Left hip pain [M25.552] INVALID FOR* More... Insomnia [G47.00] INVALID FOR* More... Enthesopathy of hip region [M76.899] INVALID FOR* Degeneration of lumbar or lumbosacral intervert*INVALID FOR* More... Backache, unspecified [M54.9] INVALID FOR* Osteoporosis [M81.0] INVALID FOR* More... Polyp of colon [K63.5] INVALID FOR* More... Familial hypercholesterolemia [E78.01] INVALID FOR* More... Basal cell carcinoma [C44.91] INVALID FOR* More... Hypothyroidism [E03.9] INVALID FOR* More... Former smoker [Z87.891] INVALID FOR* More... Encounter Status:Closed by RAHEEL MUKHERJEE DPM on 06/21/18 [facility] PROGRESSon 06-19-2018 PROGRESS HNO ID: [id number] Author: Raheel Mukherjee Service: ? Author Type: Physician Type: Progress Notes Filed: 06/21/2018 9:38 AM Note Text: AMB ROOMING INTAKE FLOWSHEET DATA Risk Screening Do you have concerns about personal safety or safety in the home?: No Pain Pain Level: 4 Pain Location: Foot-Right Description: Sharp Duration Amount of Time: 4 Duration Units: Days Frequency: Intermittent Intervention: Reposition, Relaxation, Medication(Percocet) Patient presents with: Surgical Followup: 4 days post R 2nd PIPJ arthroplasty and R 5th derotational arthroplasty Patient states she is doing well, she only has pain if she moves her toes a certain way. She is taking Percocet as prescribed and states it is helping control her pain. She is wearing her post op shoe and using a cane. Reports that she took a shower yesterday but avoided getting her foot wet. [facility] ANES Hayley 06-15-2018 ANES POST HNO ID: [id number] Author: Damon Patel Service: Anesthesiology Author Type: Anesthesiologist Type: Anesthesia PostOp Filed: 06/15/2018 4:25 PM Note Text: POST ANESTHESIA EVALUATION NOTE SERVICE DATE: 06/15/2018 SERVICE TIME: 1130 : 1960 Vitals: 06/15/18 0701 06/15/18 1020 06/15/18 1115 Temp: 36.3 ?C (97.3 ?F) 36.3 ?C (97.3 ?F) 36.5 ?C (97.7 ?F) 06/15/18 1020 06/15/18 1045 06/15/18 1100 06/15/18 1115 BP: 134/75 130/76 116/75 121/74 06/15/18 1020 06/15/18 1045 06/15/18 1100 06/15/18 1115 Pulse: 87 80 75 74 06/15/18 1020 06/15/18 1045 06/15/18 1100 06/15/18 1115 Resp: 16 16 16 16 06/15/18 0701 06/15/18 1020 06/15/18 1100 06/15/18 1115 SpO2: 94% 97% 98% 98% Validated Vital Signs: yes POST ANES STATUS: No apparent anesthetic complications. The patient is appropriately hydrated with stable respiratory and cardiovascular status. Patient has safe and adequate airway control. The patient has appropriate pain relief and no significant post operative nausea or vomiting. The patient has achieved baseline mental status. Further assessment by Anesthesia Service: None Other Remarks: SIGNATURE: Damon Patel MD PATIENT NAME: Pina Ortega DATE: June 15, 2018 TIME: 4:25 PM PAGER/CONTACT #: [phone] [facility] ANES PREOPon 06-15-2018 ANES PREOP HNO ID: [id number] Author: Damon Patel Service: Anesthesiology Author Type: Anesthesiologist Type: Anesthesia PreOp Filed: 06/15/2018 7:08 AM Note Text: ANESTHESIOLOGY DAY OF SURGERY NOTE SERVICE DATE: 06/15/2018 SERVICE TIME: 7:07 AM : 1960 Procedure(s) (LRB): RECONSTRUCTION TOE HAMMER (Right) Surgeon(s): Raheel Mukherjee Estimated body mass index is 26.15 kg/m? as calculated from the following: Height as of this encounter: 172.7 cm (5' 8). Weight as of this encounter: 78 kg (172 lb). Most recent hematocrit and potassium results: Hematocrit 43.9 05/25/2018 Potassium 4.2 05/25/2018 ANES DOS/PREOP NOTE: Vitals: 06/15/18 0701 BP: 113/74 Pulse: 73 Resp: 16 Temp: 36.3 ?C (97.3 ?F) TempSrc: Temporal Artery SpO2: 94% Weight: 78 kg (172 lb) Height: 172.7 cm (5' 8) ACTIVE PROBLEM LIST Anxiety State, Unspecified Thyroid Cancer (Hcc) Family History of Colon Cancer Cervical Spondylosis Without Myelopathy Lumbosacral Neuritis Lumbar Spondylosis Left Hand Weakness Depression Breast Lump Tobacco Abuse Disorder Left Hip Pain Insomnia Enthesopathy of Hip Region Degeneration of Lumbar Or Lumbosacral Intervertebral Disc Backache, Unspecified Osteoporosis Polyp of Colon Familial Hypercholesterolemia Basal Cell Carcinoma Hypothyroidism Former Smoker PAST MEDICAL HISTORY Diagnosis Date - Anxiety state, unspecified - Cancer (HCC) thyroid - Depressive disorder major - Osteopenia - Osteoporosis - Unspecified hypothyroidism Hypothyroidism PAST SURGICAL HISTORY Procedure Laterality Date - BREAST BIOPSY - COLONOSCOP W/ OR W/O [facility] SPEC 02/17/2018 Colonoscopy - COLONOSCOPY 07/26 - HEMORRHOID;BAND LIGAT, SNGL/MUL 1986 Hemorrhoidectomy - HYSTERECTOMY HX 2000 - LIGATE FALLOPIAN TUBE 1988 Tubal ligation - REMOVAL ADENOIDS,PRIMARY,<12 Y/O Adenoidectomy - REMOVAL OF TONSILS,<12 Y/O Tonsillectomy - THYROIDECTOMY 2005 FAMILY HISTORY Problem Relation Age of Onset - Hypertension Mother - Heart Mother CHF HAD BYPASS SURGERY - Hypertension Father - Cancer Father skin - Colon Cancer Brother at age 55 Social History: Social History Tobacco Use - Smoking status: Former Smoker Packs/day: 0.50 Years: 35.00 Pack years: 17.50 Types: Cigarettes Last attempt to quit: 08/15/2014 Years since quittin.8 - Smokeless tobacco: Never Used Substance Use Topics - Alcohol use: No Comment: [facility] beer and wine - Drug use: No No current facility-administered medications on file prior to encounter. Current Outpatient Medications on File Prior to Encounter: PARoxetine (PAXIL) 30 mg tablet TAKE 1 TABLET BY MOUTH DAILY levothyroxine (SYNTHROID) 75 mcg tablet TAKE 1 TABLET BY MOUTH DAILY ON EMPTY STOMACH FOR THYROID ULTICARE PEN NEEDLE 31 gauge x 07/30 ndle USE DIRECTED. WITH FORTEO loratadine (ALLERGY RELIEF, LORATADINE,) 10 mg tablet Take 1 tablet by mouth once daily. Teriparatide (FORTEO) 20 mcg/dose - 600 mcg/2.4 mL pnij Inject 20 mcg subcutaneously once daily. HYDROcodone-acetaminop hen (NORCO) 5-325 mg per tablet Take 1 tablet by mouth twice daily.Earliest Fill Date: 04/02/17 tiZANidine (ZANAFLEX) 4 mg tablet Take 1 tablet by mouth three times daily as needed (muscle spasms-DR LOVELACE). meloxicam (MOBIC) 7.5 mg tablet Take 1 tablet by mouth once daily. With food. calcium carbonate 500 mg calcium (1,250 mg) chewable tablet Take 1 tablet by mouth twice daily. cholecalciferol, Vitamin D3, (VITAMIN D3) 50,000 unit cap capsule Take 1 capsule by mouth once each week. Current Facility-Administered Medications: lidocaine 10 mg/mL (1 %) 1-2 mg injection (XYLOCAINE) 0.1-0.2 mL INTRADERMAL PRN Dee Dee (Res) Figas lactated ringers infusion 5-30 mL/hr INTRAVENOUS CONTINUOUS Dee Dee (Res) Figas ceFAZolin iv piggyback 2 g in D5W (iso-osmotic) 100 mL (ANCEF) 2 g INTRAVENOUS Pre-Op Once Dee Dee (Res) Figas Allergies: ALLERGIES No Known Allergies DOS EXAM: Adequate NPO Status: Yes Anesthetic Risks, Benefits, Alternatives, Personnel and Consent Discussed: Yes Patient agrees to proceed: Yes Previous Anesthesia: No history of adverse event Airway Assessment: MP 2; Neck ROM: Full ROM without neurologic symptoms; Airway Evaluation: No significant abnormalities Symptoms of Sleep Apnea: None Dentition: Dentures: upper Additional Physical Exam: Lungs: Patient health status unchanged since recent history and physical. See history and physical for exam findings. Cardiac: Patient health status unchanged since recent history and physical. See history and physical for exam findings. Additional Pertinent Findings: N/A Blood Products: Not anticipated for this procedure Anesthetic Plan: General Anesthetic Monitoring: Standard ASA Monitors Pain Management Plan: Parenteral or Oral ASA Class: 2 Other Medical Problems: None Chronic Beta Maryan medication administered within 24 hours: N/A I have interviewed and examined the patient. I have reviewed the medical record and/or the pre-anesthesia evaluation, pertinent labs, and test results. Significant changes in the patient's condition since the History and Physical, not otherwise documented in primary service progress notes: No This contains updated information obtained within 48 hours of Surgery/Procedure. SIGNATURE: Damon Patel MD PATIENT NAME: Pina Ortega DATE: June 15, 2018 TIME: 7:07 AM CSN: [id number] [facility] BRIEF OP NOTon 06-15-2018 BRIEF OP NOT HNO ID: [id number] Author: Dee Dee Santo Service: Podiatry Author Type: Resident Type: Brief Op Note Filed: 06/15/2018 10:18 AM Note Text: BRIEF OP NOTE LOG ID: [id number] Surgery/Procedure Date: 06/15/2018 Incision/Procedure Start Time: 8:02 AM Incision Close/Procedure End Time: 10:07 AM Surgeon(s)/Procedurali st(s) and Tool And Die Maker Level Five(s): Surgeon(s) and Role: * Raheel Mukherjee - Primary Dee Dee Santo - Resident - Assisting Procedure(s): Hammertoe correction with dipj fusion, right 2nd toe Hammertoe correction with soft-tissue release and pipj fusion, right 3rd and 4th toe Derotational arthroplasty, right 5th toe Anesthesia: General with local ankle block of 10 cc of 1:1 mixture of 1% lidocaine plain and 0.5% marcaine plain Findings: Hammertoe deformity of toes 2-4, right foot 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, right foot Estimated Blood Loss: 10 mls Specimens: None Complications: None Pre-Op/Pre-Procedure Diagnosis: Hammertoe deformity of toes 2-4, right foot 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, right foot Post-Op/Post-Procedure Diagnosis: same SIGNATURE: Dee Dee Santo DPM PATIENT NAME: Pina Ortega DATE: June 15, 2018 TIME: 10:17 AM PAGER/CONTACT #: [phone] [facility] HISTORY PHYSICALon HISTORY PHYSICAL HNO ID: [id number] Author: Dee Dee Santo Service: Podiatry Author Type: Resident Type: HANDP Filed: 06/15/2018 7:01 AM Note Text: PODIATRIC HISTORY AND PHYSICAL UPDATE EVALUATION DATE: 06/15/2018 EVALUATION TIME: 7:00 AM The documented History and Physical (completed in the past 30 days) has been reviewed and the patient had a confirmatory musculoskeletal exam performed. The contents of the pre-operative assesment accurately reflect the patient's condition with the following additions or revisions since the HANDP was completed: No changes. This HANDP can be found in the record dated 05/25/18 by Natasha Page CNP. SIGNATURE: Dee Dee Santo DPM PATIENT NAME: Pina Ortega DATE: June 15, 2018 [facility] NURSING PROGon 06-15-2018 Protein mass conc HNO ID: [id number] Author: Skylar LirianoRn) CHARLES Allen Service: ? Author Type: Registered Nurse Type: Nursing Progress Note Filed: 06/15/2018 12:08 PM Note Text: POST OP LEARNING RESPONSE INSTRUCTION PROVIDED TO: Patient and Family member METHOD OF INSTRUCTION: Individual instruction PATIENT / FAMILY RESPONSE: Verbalizes understanding of: POST-OPERATIVE INSTRUCTIONS-Correct actions to take to reduce postoperative complications FOLLOW-UP PLAN: Complete - No need for follow-up SUPPLEMENTAL MATERIAL: None REFERRAL (RECOMMENDATION): None Electronically Signed By: Skylar Allen RN In Department: [facility] SURGERY [facility] Protein mass conc HNO ID: [id number] Author: Do LirianoRn) CHARLES Robbins Service: ? Author Type: Registered Nurse Type: Nursing Progress Note Filed: 06/15/2018 10:45 AM Note Text: Fentanyl given by Anesthesia in Pacu [facility] OPERATIVE NOon 06-15-2018 OPERATIVE NO HNO ID: [id number] Author: Raheel Mukherjee Service: Podiatry Author Type: Physician Type: Operative Report Filed: 06/15/2018 9:00 PM Note Text: OPERATIVE/PROCEDURE REPORT LOG ID: [id number] SURGERY/PROCEDURE DATE: 06/15/2018 INCISION/PROCEDURE START TIME: 8:02 AM INCISION CLOSE/PROCEDURE END TIME: 10:07 AM SURGEON(S)/PROCEDURALI ST(S) AND EMAIL DEPLOYMENT SPECIALIST(S): Surgeon(s) and Role: * Raheel Mukherjee - Primary No Additional Staff SURGERY/PROCEDURE(S): Hammertoe correction right 2nd toe with flexor tenotomy and distal interphalangeal joint fusion. Hammertoe correction right 3rd toe with proximal interphalangeal joint fusion. Hammertoe correction right 4th toe with proximal interphalangeal joint fusion. Hammertoe correction right 5th toe with derotational arthroplasty of proximal phalanx. ANESTHESIA: General SURGERY/PROCEDURE DETAILS: This patient is a pleasant 58 year old female who complains of painful hammertoes of b/l feet. she specifically complains of pain to right 2nd toe of distal phalanx. She also complains of pain to the proximal phalanx of right 3rd, 4th and 5th toe. 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 Patient has tried conservative care not limited to gel padding for the toes, wider shoes, lambs wool without success. Patient is electing for surgical correction of toes. Initially, she consented for correction of 2nd and 5th toes by way of right 2nd dipj fusion and derotational arthroplasty of right 5th toe. Over the last few weeks, the pain in right 3rd and 4th toes has increased. She would like to pursue surgery on the 3rd and 4th toe because she feels the toes are rubbing and causing her pain. I have discussed options for the 3rd and 4th toe by way of flexor tenotomy vs arthrodesis of 3rd and 4th pipj. I offered patient flexor tenotomy but this patient does not wish to have this done with risk that recurrence could develop. Rather, she would like to have permanent correction and for this, she has elected for fusion of 3rd and 4th pipj. I have discussed risks of this procedure not limited to infection, pain, swelling, bleeding, wound dehiscence, loss of toe, recurrent hammertoe. I have discussed risk of failed hardware due to her history of osteopenia. This patient understands that she can continue with conservative care, this being wider shoes and padding vs the surgical options that have been discussed. This patient understands that there are no guarantees regarding correction of hammertoe. She understands there is no guarantee the toes will be straight following surgery. She understands that following surgery, she will require partial weightbearing to right heel with surgical shoe. All questions have been answered. no guarantees expressed. consent has been signed for hammertoe correction of right 2nd, 3rd, 4th and 5th toes. The patient was transferred from pre-op holding area and placed on the operating room table in supine position. she was placed under general anesthesia. Following induction of general anesthesia, local injection to the right ankle was performed. The right lower extremity was prepped and draped in usual aseptic technique. The right lower extremity was then elevated and the tourniquet was inflated to 250 mm hg. attention was first directed to the right 2nd toe where rigid contracture was present to the distal interphalangeal joint. There is no contracture clinically at pipj. A dorsal transverse incision of dipj was performed. Dissection was performed thru dermis, epidermis and subcutaneous tissue. the extensor tendon was transected. The joint was identified at dipj. There was rigid contracture present. using a sagittal saw, the head of middle phalanx and base of distal phalanx was resected. The flexor tendon was noted to still influence the dipj with relative plantarflexion. The flexor tendon was then isloated and a tenotomy within the joint was performed. Irrigation of the joint was performed. the joint was then fixated with 0.45 inch k-wire. the k-wire was passed thru proximal phalanx to aide in stabilization of toe. irrigation was then performed. The extensor tendon was then repaired. Attention was then directed to the right 3rd toe. a linear incision was performed along proximal interphalangeal joint. dissection carried thru dermis, epidermis and subcutaneous tissue. The extensor tendon was transected at proximal interphalangeal joint. The head of proximal phalanx and base of middle phalanx was then transected. The toe was then fixated with 0.45 inch k-wire. Intra-op xrays confirmed successful positioning of toe and the toe was rectus clinically. Irrigation was then performed. the extensor tendon was then repaired. Attention was then directed to the right 4th toe. a linear incision was performed along proximal interphalangeal joint. dissection carried thru dermis, epidermis and subcutaneous tissue. The extensor tendon was transected at proximal interphalangeal joint. The head of proximal phalanx and base of middle phalanx was then transected.The toe was then fixated with 0.45 inch k-wire. Intra-op xrays confirmed successful positioning of toe and the toe was rectus clinically.irrigation was then performed. the extensor tendon was then repaired. Attention was then directed to the right 5th toe. An incision along the proximal interphalangeal joint beginning proximal lateral extending distal medial was performed. dissection carried thru dermis, epidermis and subcutaneous tissue. The extensor tendon was transected at the proximal interphalangeal joint. the head of the proximal phlanx was resected. Irrigation was then performed. the extensor tendon was then repaired. the tourniquet was deflated. closure was performed with tourniquet down to assure adequate hemostasis. intra-op xray was used to confirm successful correction of toes. post-op dressing was then applied consisting of betadine soaked adaptic, 4x4 guaze, jacob and compression yahaira. patient was awakened and found to be in stable condition. she was transferred to pacu in stable condition. she will ambulate with surgical shoe. she will f/u later this week. she was given Percocet for pain. she is to not take [place] at this time. she was given Keflex for post-op antibiotic. PRE-OP/PRE-PROCEDURE DIAGNOSIS: hammertoe right 2nd, 3rd, 4th, 5th toes POST-OP/POST-PROCEDURE DIAGNOSIS: same ESTIMATED BLOOD LOSS: less than 5 ml mls SPECIMENS: None IMPLANTABLE DEVICES: percutaneous k-wire, right 2nd, 3rd and 4th toe DRAINS: None COMPLICATIONS: None PARTICIPATION IN SURGERY/PROCEDURE: I performed the procedure with assistance. SIGNATURE: Raheel Mukherjee DPM PATIENT NAME: Pina Ortega DATE: June 15, 2018 TIME: 8:48 PM PAGER/CONTACT #: [facility] PLAN OF CAREon 06-15-2018 PLAN OF CARE HNO ID: [id number] Author: Paige Gonzales ([place]ra) Service: Pharmacy Author Type: ? Type: Plan of Care Filed: 06/15/2018 11:52 AM Note Text: PEDIATRIC DENTIST BEDSIDE DELIVERY SURVEY 1. Patient to use [facility] Bedside Delivery - YES Insurance Information as follows: 2. Insurance card on file - YES 3. Credit card for payment - YES PHARMACY BEDSIDE DELIVERY SERVICE Patient Name: Pina Ortega The marked outpatient medications were Filled at: [facility] and delivered to the patient's bedside to pharm p/u Medication List START taking these medications cephALEXin 500 mg capsule Commonly known as: KEFLEX Take 1 capsule by mouth three times daily for 3 days. X oxyCODONE-acetaminophe n 5-325 mg tablet Commonly known as: PERCOCET Take 1 tablet by mouth every 6 hours as needed for Pain for up to 7 days. X STOP taking these medications HYDROcodone-acetaminop hen 5-325 mg per tablet Commonly known as: NORCO Paige Gonzales (Chimney Mechanic) PAGER: [phone] June 15, 2018 11:51 AM [facility] PROGRESSon 06-15-2018 Protein mass conc HNO ID: [id number] Author: Dee Dee Santo Service: Podiatry Author Type: Resident Type: Progress Notes Filed: 06/15/2018 7:05 AM Note Text: PODIATRIC PRE-OPERATIVE NOTE SERVICE DATE: 06/15/2018 SERVICE TIME: 7:01 AM DIAGNOSIS: Hammertoe deformity of toes 2-4, right foot 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, right foot PROCEDURE(S): Hammertoe correction with dipj fusion, right 2nd toe Hammertoe correction with soft-tissue release and pipj fusion, right 3rd and 4th toe Derotational arthroplasty, right 5th toe Consent on chart: Yes LABS: CBC: WBC 5.95 05/25/2018 Hemoglobin 14.2 05/25/2018 Hematocrit 43.9 05/25/2018 Platelet Count 304 05/25/2018 CMP: Sodium 138 05/25/2018 Potassium 4.2 05/25/2018 BUN 18 05/25/2018 Creatinine 0.71 05/25/2018 Glucose 88 05/25/2018 COAGS: No results found for this basename: aptt,inr URINALYSIS: Nitrites NEGATIVE 03/26/2012 Specific [place], Ur 1.004 03/26/2012 Protein, Urine NEGATIVE 03/26/2012 Leukest NEGATIVE 03/26/2012 WBC, Urine NONE SEEN 03/26/2012 Bacteria NONE SEEN 03/26/2012 Type AND screen: N/A Medical Clearance: Yes CXR/EKG: No Medications/Preop Antibiotics: Ancef ALLERGIES No Known Allergies Surgical site identified: Yes NPO: Yes IV Fluids: Yes Risks and benefits, complications, treatment options, expected outcome and rehabilitation explained, patient understands. All questions were entertained and answered. Patient wishes to proceed with above procedure(s). SIGNATURE: Dee Dee Santo DPM PATIENT NAME: Pina Ortega DATE: June 15, 2018 TIME: 7:01 AM PAGER: [phone] [facility] PT EDon 06-15-2018 PT ED HNO ID: [id number] Author: Teri Allen RN Service: Nursing Author Type: Registered Nurse Type: Patient Education Filed: 06/15/2018 6:59 AM Note Text: PRE OP LEARNING ASSESSMENT PROCEDURE/SURGERY: right foot/toe surgery READINESS TO LEARN COGNITIVE ABILITY: Alert and oriented MOTIVATION TO LEARN: Interested FAMILY SUPPORT: Unable to assess - Family not present PATIENT LEARNS BEST BY: Verbal Instruction FACTORS AFFECTING LEARNING: None PHYSICAL LIMITATIONS AFFECTING LEARNING: None Electronically Signed By: Teri Allen RN In Department: [facility] SURGERY [facility] XR FLUOROSCOPYon 06-15-2018 XR FLUOROSCOPY * * *Final Report* * * DATE OF EXAM: Jun 15 2018 10:06AM MDR [id number] - XR FLUOROSCOPY / PROCEDURE REASON: RECONSTRUCTION TOE HAMMER RIGHT FOOT * * * * Physician Interpretation * * * * INDICATION: RECONSTRUCTION TOE HAMMER RIGHT FOOT TECHNIQUE: Fluoroscopy with 3 views of the right toes Fluoroscopic Radiation Summary: Plane A, Air Kerma: 25.0 mGy Dose Area Product (DAP): 0.0 mGy*cmS2 Fluoro time: 1:02 min:sec FINDINGS/ IMPRESSION: K wires project through the phalanges of the 2nd, 3rd and 4th toes. Please refer to the performing LIP's report. Strategic Planner: GOLDY Transcribe Date/Time: Jun 17 2018 12:11P Dictated by : KEYON PATEL MD This examination was interpreted and the report reviewed and electronically signed by: KEYON PATEL MD on Jun 17 2018 12:12PM EST [id number] [facility] XR FOOT 3V AP/LAT/OBL RTon 0 06-15-2018 XR FOOT 3V AP/LAT/OBL RT * * *Final Report* * * DATE OF EXAM: Jun 15 2018 11:01AM MDX [id number] - XR FOOT 3V AP/LAT/OBL RT / PROCEDURE REASON: Post-operative / post-procedure assessment, asymptomatic * * * * Physician Interpretation * * * * HISTORY: Postoperative right foot TECHNIQUE: 3 portable views COMPARISON: 04/28/2018 RESULT: K wires are seen running longitudinally through the 3 phalanges of the second third and fourth toes. IMPRESSION: As in results Strategic Planner: PSCB Transcribe Date/Time: Jun 15 2018 11:14A Dictated by : JOYCELYN BARKER MD This examination was interpreted and the report reviewed and electronically signed by: JOYCELYN BARKER MD on Jun 15 2018 11:16AM EST [id number] [facility] TSH ([id number])Ordered By: Luciana Hurst on 06-09-2018 Thyrotropin Qn 1.680 {uIU/mL} Normal 0.450-4.500 Compr ehensive Internal Medicine Work Phone: Comment on above: PATIENT NOT FASTINGP ERFORMED BY: [facility] [id number] NURSING PROGon 05-27-2018 Protein mass conc HNO ID: [id number] Author: Barbara (Rn) CHARLES Page Service: ? Author Type: Registered Nurse Type: Nursing Progress Note Filed: 05/27/2018 11:19 AM Note Text: PACC Nurse Progress Note History AND Physical: PACC Visit Date: 05/25/18 Original HANDP Date: 05/25/18 ED visit Date: N/A Outside HANDP Scanned Date: N/A Labs Within Last 6 Months: CBC: Date 05/25/18 WNL BMP/CMP: Date 05/25/18 within acceptable limits for planned procedure Imaging Within Last 12 Months: See chart Cardiac Testing: N/A Last Menstrual Period: LMP Date: NA Postmenopausal >1yr: Yes, S/P Hysterectomy: Yes BMI Percentile (PEDS): N/A Risk Assessment: N/A Anesthesia Review: N/A Narrative: N/A Pre-op Considerations: N/A Chart Check: COMPLETED Barbara Page RN May 27, 2018 11:18 AM Normal [facility] Basic Metabolic Panlon 05-25 Anion gap [Moles/Vol] 9 mmol/L Normal [facility] Calcium [Mass/Vol] 10.4 mg/dL High 8.5-10.2 [facility] Chloride [Moles/Vol] 100 mmol/L Normal 97-105 [facility] CO2 [Moles/Vol] 29 mmol/L Normal 22-30 [facility] [place] [facility] Creatinine [Mass/Vol] 0.71 mg/dL Normal 0.58-0.96 [facility] eGFR- Amer. >60 Normal [facility] GFR/1.73 sq M predicted among non-blacks MDRD (S/P/Bld) [Vol rate/Area] mL/min/{1.73_m2} Normal [facility] Comment on above: Result Comment: eGFR (Estimated GFR) Units of measure: mL/min/1.73 meters squared eGFR is derived from the reexpressed MDRD Study equation using the following parameters: serum creatinine, age, gender and race. The creatinine assay has been calibrated to be traceable to IDMS. An eGFR <60 mL/min/1.73m2 for >3 months is consistent with chronic kidney disease. Refer to KDOQI guidelines for clinical interpretation. In patients with unstable renal function, e.g. those with acute kidney injury, the eGFR may not accurately reflect actual GFR. Glucose [Mass/Vol] 88 mg/dL Normal 74-99 [facility] Potassium [Moles/Vol] 4.2 mmol/L Normal 3.7-5.1 [facility] Sodium [Moles/Vol] 138 mmol/L Normal 136-144 [facility] Urea nitrogen [Mass/Vol] 18 mg/dL Normal 7-21 [facility] [place] [facility] CBC and Differentialon 05-25 Abs Baso 0.07 k/uL Normal <0.11 [facility] [place] [facility] Comment on above: Performed By: #### C BCDIF ####[place] [address] [place], [place] [phone] Abs Harris 0.68 k/uL Normal <0.87 [facility] [place] [facility] Comment on above: Performed By: #### C BCDIF ####[place] [address] [address] [place], [place] [phone] Abs Neut 2.97 k/uL Normal 1.45-7.50 [facility] [place] [facility] Comment on above: Performed By: #### C BCDIF ####[place] [address] [address] [place], [place] [phone] Absolute nRBC <0.01 Normal <0.01 [facility] [place] [facility] Comment on above: Performed By: #### C BCDIF ####[place] [address] [address] [place], [place] [phone] Basophils/100 WBC (Bld) 1.2 % Normal [facility] [place] [facility] Comment on above: Performed By: #### C BCDIF ####[place] [address] [address] [place], [place] [phone] DTYPE Auto Diff Normal [facility] [place] [facility] Comment on above: Performed By: #### C BCDIF ####[place] [address] [address] [place] [phone] Eosinophils (Bld) [#/Vol] 0.10 10*3/uL Normal <0.46 [facility] [place] [facility] Comment on above: Performed By: #### C BCDIF ####[place] [address] [address] [place] [phone] Eosinophils/100 WBC (Bld) 1.7 % Normal [facility] [place] [facility] Comment on above: Performed By: #### C BCDIF ####[place] [address] [address] [place] [phone] Erythrocyte distribution width (RBC) [Ratio] 12.5 % Normal 11.5-15.0 [facility] [place] [facility] Comment on above: Performed By: #### C BCDIF ####[place] [address] [address] [place] [phone] Hematocrit (Bld) [Volume fraction] 43.9 % Normal 36.0-46.0 [facility] [place] [facility] Comment on above: Performed By: #### C BCDIF ####[place] [address] [address] [place] [phone] Hemoglobin (Bld) [Mass/Vol] 14.2 g/dL Normal 11.5-15.5 [facility] [place] [facility] Comment on above: Performed By: #### C BCDIF ####[place] [address] [address] [place] [phone] Lymphocytes (Bld) [#/Vol] 2.11 10*3/uL Normal 1.00-4.00 [facility] [place] [facility] Comment on above: Performed By: #### C BCDIF ####[place] [address] [address] [phone] Lymphocytes/100 WBC (Bld) 35.5 % Normal [facility] [place] [facility] Comment on above: Performed By: #### C BCDIF ####[place] [address] [address], [place] [phone] MCH (RBC) [Entitic mass] 28.1 pG Normal 26.0-34.0 [facility] [place] [facility] Comment on above: Performed By: #### C BCDIF ####[place] [address] [address], [place] [phone] MCHC (RBC) [Mass/Vol] 32.3 g/dL Normal 30.5-36.0 [facility] Comment on above: Performed By: #### C BCDIF ####[place] [address] [address] [phone] MCV (RBC) [Entitic vol] 86.8 fL Normal 80.0-100.0 [facility] [place] [facility] Comment on above: Performed By: #### C BCDIF ####[place] [address] [address] [phone] Monocytes/100 WBC (Bld) 11.4 % Normal [facility] [place] [facility] Comment on above: Performed By: #### C BCDIF ####[place] [address] [address], [place] [phone] Neutrophils/100 WBC (Bld) 50.2 % Normal [facility] [place] [facility] Comment on above: Performed By: #### C BCDIF ####[place] [address] [address], [place] [phone] NRBCs 0.0 /100 WBC Normal 0 [facility] [place] [facility] Comment on above: Performed By: #### C BCDIF ####[place] [address] [address], [place] [phone] Platelet mean volume (Bld) [Entitic vol] 9.7 fL Normal 9.0-12.7 [facility] [place] [facility] Comment on above: Performed By: #### C BCDIF ####[place] [address] [address], [place] [phone] Platelets (Bld) [#/Vol] 304 10*3/uL Normal 150-400 [facility] [place] [facility] Comment on above: Performed By: #### C BCDIF ####[facility] [place], [place] [phone] RBC (Bld) [#/Vol] 5.06 10*6/uL Normal 3.90-5.20 [facility] Comment on above: Performed By: #### C BCDIF ####[place] [id number] [place], [place] [phone] WBC (Bld) [#/Vol] 5.95 10*3/uL Normal 3.70-11.00 [facility] Comment on above: Performed By: #### C BCDIF ####[place] [id number] [place], [place] [phone] HISTORY PHYSICALon HISTORY PHYSICAL HNO ID: [id number] Author: Natasha Pgae Service: ? Author Type: Nurse Practitioner Type: HANDP Filed: 05/25/2018 11:39 AM Note Text: HISTORY AND PHYSICAL EXAMINATION SERVICE DATE: 05/25/2018 SERVICE TIME: 9:28 AM PRIMARY CARE PHYSICIAN: Jessica May CNP REASON FOR VISIT: Pina Ortega is a 58 year old female who is scheduled for PAC due to Reconstruction of Hammer Toe at the request of Dr. Raheel Mukherjee for consultation. My final recommendation will be communicated back to the requesting physician by way of shared medical record or letter. The patient has the following: ACTIVE PROBLEM LIST Anxiety State, Unspecified Thyroid Cancer (Hcc) Family History of Colon Cancer Cervical Spondylosis Without Myelopathy Lumbosacral Neuritis Lumbar Spondylosis Left Hand Weakness Depression Breast Lump Tobacco Abuse Disorder Left Hip Pain Insomnia Enthesopathy of Hip Region Degeneration of Lumbar Or Lumbosacral Intervertebral Disc Backache, Unspecified Osteoporosis Polyp of Colon Familial Hypercholesterolemia Basal Cell Carcinoma Subjective CHIEF COMPLAINT: Pre-op exam: Hammer Toe HPI: Leda Is a 58 yo female presents for PAC due to above scheduled procedure because of complaint of hammertoes of b/l feet The primary toes that bother her is the 2nd toe of b/l feet and the lateral aspect of b/l 5th She states that the toes will rub and lead to ulcerations or blisters Patient treats herself with padding and wider shoes and/or open toe shoes to avoid rubbing. Xray 04/28/2018 IMPRESSION: BILATERAL PES PLANUS AND A SMALL RIGHT CALCANEAL PLANTAR SPUR. PAST MEDICAL HISTORY Diagnosis Date - Anxiety state, unspecified - Cancer (HCC) thyroid - Depressive disorder major - Osteopenia - Osteoporosis - Unspecified hypothyroidism Hypothyroidism PAST SURGICAL HISTORY Procedure Laterality Date - BREAST BIOPSY - COLONOSCOP W/ OR W/O [facility] SPEC 02/17/2018 Colonoscopy - COLONOSCOPY 07/26 - HEMORRHOID;BAND LIGAT, SNGL/MUL 1986 Hemorrhoidectomy - HYSTERECTOMY HX 2000 - LIGATE FALLOPIAN TUBE 1988 Tubal ligation - REMOVAL ADENOIDS,PRIMARY,<12 Y/O Adenoidectomy - REMOVAL OF TONSILS,<12 Y/O Tonsillectomy - THYROIDECTOMY 2005 FAMILY HISTORY Problem Relation Age of Onset - Hypertension Mother - Heart Mother CHF HAD BYPASS SURGERY - Hypertension Father - Cancer Father skin - Colon Cancer Brother at age 55 SOCIAL HISTORY: Social History Socioeconomic History Marital status: Spouse name: Not on file Number of children: Not on file Years of education: Not on file Highest education level: Not on file Social Needs Financial resource strain: Not on file Food insecurity - worry: Not on file Food insecurity - inability: Not on file Transportation needs - medical: Not on file Transportation needs - non-medical: Not on file Occupational History Not on file Tobacco Use Smoking status: Former Smoker Packs/day: 0.50 Years: 35.00 Pack years: 17.5 Types: Cigarettes Quit date: 08/15/2014 Years since quittin.7 Smokeless tobacco: Never Used Substance and Sexual Activity Alcohol use: No Comment: occ beer and wine Drug use: No Sexual activity: Not on file Other Topics Concerns: Not on file Social History Narrative Not on file Prior to Admission medications as of 05/25/18 0927 Medication Sig Last Dose Taking ULTICARE PEN NEEDLE 31 gauge x 07/30 ndle USE DIRECTED. WITH FORTEO Taking Yes PARoxetine (PAXIL) 30 mg tablet TAKE 1 TABLET BY MOUTH DAILY Taking Yes loratadine (ALLERGY RELIEF, LORATADINE,) 10 mg tablet Take 1 tablet by mouth once daily. Taking Yes Teriparatide (FORTEO) 20 mcg/dose - 600 mcg/2.4 mL pnij Inject 20 mcg subcutaneously once daily. Taking Yes HYDROcodone-acetaminop hen (NORCO) 5-325 mg per tablet Take 1 tablet by mouth twice daily. Earliest Fill Date: 04/02/17 Taking Yes tiZANidine (ZANAFLEX) 4 mg tablet Take 1 tablet by mouth three times daily as needed (muscle spasms-DR LOVELACE). Taking Yes meloxicam (MOBIC) 7.5 mg tablet Take 1 tablet by mouth once daily. With food. Taking Yes calcium carbonate 500 mg calcium (1,250 mg) chewable tablet Take 1 tablet by mouth twice daily. Taking Yes cholecalciferol, Vitamin D3, (VITAMIN D3) 50,000 unit cap capsule Take 1 capsule by mouth once each week. Taking Yes levothyroxine (SYNTHROID) 75 mcg tablet TAKE 1 TABLET BY MOUTH DAILY ON EMPTY STOMACH FOR THYROID Taking Yes No medication comments found. ALLERGIES No Known Allergies REVIEW OF SYSTEMS: PAIN ASSESSMENT: General: No weight loss, malaise or fevers. Neuro: No history of TIA's, stroke, HEART SPECIALIST tumor, impaired sensorium, hemiplegia, paraplegia or quadraplegia. No neurological symptoms or problems. Denies hx WILCOX/migraines. Denies numbness/tingling. Respiratory: No history of current cough or dyspnea, or pneumonia in the past 6 weeks. No history of respiratory/pulmonary symptoms or problems. Former smoker, Denies hx of asthma, or ZINA. Cardiovascular: No history of HTN requiring medication, no history of angina, CHF, NV, cardiac surgery or stents. Denies rest pain, gangrene or revascularization/ampu tation for PVD. No history of cardiovascular symptoms or problems. Denies chest pain or sob. Denies hx of DVT/PE. 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 : Denies, No LMP recorded. Patient has had a hysterectomy. Endocrine: Hypothyroidism on rx, Denies DM. Hematology: No history of bleeding or clotting disorder. Pt is not taking anti-coagulation or platelet medications. No history of hematological symptoms or problems. Oncology: Thyroidectomy, 2006, no radiation recommended. BCC, Skin CA arm, excised Psych: Anxiety, Depression on rx Musculoskeletal: Chronic back pain, neck. Follows Dr. Jacobs. Hx of Osteoporosis, on rx. SEE HPI Skin: Negative for lesions, rash and itching. Objective PHYSICAL EXAM: VITALS: BP 103/63 Pulse 71 Temp (Src) 97.3 (Temporal Artery) Ht 5' 8 (1.73m) Wt 172 lb 4.8 oz (78.2kg) SpO2 97% BMI 26.20 kg/(m2). General: Alert and oriented Skin: Normal color, no rash, no lesions. HEENT: EOM, pupils equal, round and reactive. Cardiovascular: Normal S1 AND S2, no rubs, murmurs or gallops. No JVD. Pulse regular. Lungs: Normal breath sounds, no wheezes or crackles. Abdomen: Soft, non-tender, no rigidity. Extremities: No deformity, no edema or tenderness, no joint swelling or clubbing. Neurological: Normal cognition and motor skills. Pulses: Carotid and radial pulses normal +2. Diagnostic tests reviewed for today's visit: Lab Value Units Date High Low HB No results within date range. HCT No results within date range. WBC No results within date range. PLT No results within date range. NA No results within date range. K No results within date range. GLUC No results within date range. BUN No results within date range. CREAT No results within date range. PTSEC No results within date range. INR No results within date range. APTT No results within date range. ALT No results within date range. AST No results within date range. TBILI No results within date range. TSH No results within date range. Lab Value Units Date High Low HCGQT No results within date range. UHCG No results within date range. HCG, BODY* No results within date range. Lab Value Units Date High Low ABORHD No results within date range. ABSCREEN No results within date range. No results found for: HBA1C Most recent labs New labs pending Assessment/Plan Depression Assessment: and Anxiety, on rx Osteoporosis Assessment: on rx Cervical spondylosis without myelopathy Assessment: follows Dr. Jacobs, limited ROM, receives injections Degeneration of lumbar or lumbosacral intervertebral disc Assessment: follows pain management, Pedro Clements rx Basal cell carcinoma Assessment: h/o Thyroid cancer (HCC) Assessment: h/o of thyroidectomy, 2005, did not receive radiation or chemo Hypothyroidism Assessment: on rx Former smoker *LIMITED ROM IN NECK METS: Climb a flight of stairs or walk up a hill (5.50 METs) Patient denies any chest pain or undue shortness of breath with the above physical activity. ASA Class: 3 ANESTHESIA FINDINGS: Intubation History: No history of difficult intubation Significant Anesthesia Considerations: None Airway Exam: General: Normal appearance Mallampati Score is CLASS II ULBT: Class I - Lower incisors can bite the upper lip above the caprice line Neck: Normal appearance and function, Distance from hyoid to mentum during neck extension is at least 3 finger breaths. LIMITED ROM In NECK Mouth: Normal tongue size Dentition: Upper denture and Lower denture Airway History: No abnormal airway history STOP BANG Score: Criteria: Age over 50 (58 year old) Score = 1 PLAN This patient is optimally prepared for surgery pending LABS. CONSULTS: Patient does not require consults for optimization at this time. The Following Tests/Procedures Have Been Initiated: Orders Placed This Encounter >CBC + AUTO DIFF Standing Status: Future Standing Expiration Date: 05/25/2019 >BMP Standing Status: Future Standing Expiration Date: 05/25/2019 Planned Anesthetic: Per anesthesia choice Instructions Given to Patient: Patient given verbal and written preop instructions and voices comprehension and compliance. @ASSESSEND@ SIGNATURE: Natasha Page APRN.[email or web address] PATIENT NAME: Pina Ortega DATE: May 25, 2018 TIME: 9:28 AM PAGER/CONTACT #: Latricia [facility] [place] [facility] PROGRESSon 05-20-2018 PROGRESS HNO ID: [id number] Author: Raheel Mukherjee Service: ? Author Type: Physician Type: Progress Notes Filed: 05/19/2018 10:40 PM Note Text: Follow up podiatric office visit for: Chief Complaint: This 58 year old who presents for follow up:hammertoes of b/l feet Patient presents to clinic for follow-up hammertoes of b/l feet. Her greatest pain is within right 2nd and right 5th toe. She has pvr to review and she is here to discuss surgical options. PAIN EVALUATION 05/12/2018 Pain Level: 6 Pain Location: Other: See Comment bilateral feet bilateral feet Description: Sore Duration Amount of Time: ? unknown unknown Duration Units: Years Frequency: Continuous Intervention: Other: See comment not wearing clossed toed shoes not wearing clossed toed shoes No results found for: HBA1C PCP: LOLI LEYVA MD PAST MEDICAL HISTORY Diagnosis Date - Anxiety state, unspecified - Cancer (HCC) thyroid - Depressive disorder major - Osteopenia - Osteoporosis - Unspecified hypothyroidism Hypothyroidism Current Outpatient Medications: ULTICARE PEN NEEDLE 31 gauge x 07/30 ndle USE DIRECTED. WITH FORTEO PARoxetine (PAXIL) 30 mg tablet TAKE 1 TABLET BY MOUTH DAILY loratadine (ALLERGY RELIEF, LORATADINE,) 10 mg tablet Take 1 tablet by mouth once daily. Teriparatide (FORTEO) 20 mcg/dose - 600 mcg/2.4 mL pnij Inject 20 mcg subcutaneously once daily. HYDROcodone-acetaminop hen (NORCO) 5-325 mg per tablet Take 1 tablet by mouth twice daily.Earliest Fill Date: 04/02/17 tiZANidine (ZANAFLEX) 4 mg tablet Take 1 tablet by mouth three times daily as needed (muscle spasms-DR LOVELACE). meloxicam (MOBIC) 7.5 mg tablet Take 1 tablet by mouth once daily. With food. calcium carbonate 500 mg calcium (1,250 mg) chewable tablet Take 1 tablet by mouth twice daily. cholecalciferol, Vitamin D3, (VITAMIN D3) 50,000 unit cap capsule Take 1 capsule by mouth once each week. levothyroxine (SYNTHROID) 75 mcg tablet TAKE 1 TABLET BY MOUTH DAILY ON EMPTY STOMACH FOR THYROID No current facility-administered medications for this visit. ALLERGIES No Known Allergies PAST SURGICAL HISTORY Procedure Laterality Date - COLONOSCOP W/ OR W/O [facility] SPEC 02/17/2018 Colonoscopy - COLONOSCOPY 07/26 - HEMORRHOID;BAND LIGAT, SNGL/MUL 1986 Hemorrhoidectomy - HYSTERECTOMY HX 2000 - LIGATE FALLOPIAN TUBE 1988 Tubal ligation - REMOVAL ADENOIDS,PRIMARY,<12 Y/O Adenoidectomy - REMOVAL OF TONSILS,<12 Y/O Tonsillectomy - THYROIDECTOMY 2005 Physical Exam: Constitutional: Pt is a well developed 58 year old female who is alert, oriented, cooperative and in no apparent distress. OBJECTIVE: NVSI unchanged from previous visit. Dermatological: Nails 1-5 b/l are normal. Webspaces clean and dry 1-4 b/l. Skin appears well hydrated and supple. good color, texture, turgor. No open lesions present. No callosities present. Musculoskeletal/Orthop aedic: Patient has rigid hammertoe of right 2nd dipj. There are flexible hammertoes of right 3rd, 4th and 5th toe. There are flexible hammertoes of left 2nd, 3rd, 4th and 5th toes Patient has pain to right 2nd dipj and right 5th pipj ASSESSMENT: (M20.42) Hammertoe of left foot (primary encounter diagnosis (M20.41) Hammertoe of right foot PLAN: 1. History and physical examination completed today. 2. Discussed hammertoes of b/l feet. Her greatest pain is along the right 2nd dipj and right pipj. 3. Discussed conservative options not limited to wider shoes, padding, lambs wool vs surgical options. 4. Surgical options for right foot include dipj fusion of right 2nd toe and derotational arthroplasty of right 5th toe. Discussed options for right 3rd and 4th toe. On weightbearing exam, there is rectus presentation with no significant contracture. She complains of pain. If patient has pain, a flexor tenotomy of right 3rd and 4th toe could be option. Informed patient of risks of procedure not limited to infection, pain, swelling, bleeding, loss of correction, pin site infection, loss of toe, recurrent hammertoe, wound complications. 5. Patient would like to proceed with dipj fusion of right 2nd toe and derotational arthroplasty of right 5th toe. She consents for this procedure. She will monitor for pain of right 3rd and 4th toe and if pain present, consider flexor tenotomy of right 3rd and 4th toe. Raheel Mukherjee DPM Normal [facility] [place] [facility] HOSPon 05-13-2018 HOSP Patient:Pina Ortega MRN: Height:5' 8(1.727 m) Weight:172 lb 4.8 oz (78.155 kg) Outpatient Medications as of 06/15/18: ULTICARE PEN NEEDLE 31 gauge x /16 ndle PARoxetine (PAXIL) 30 mg tablet loratadine (ALLERGY RELIEF, LORATADINE,) 10 mg tablet Teriparatide (FORTEO) 20 mcg/dose - 600 mcg/2.4 mL pnij HYDROcodone-acetaminop hen (NORCO) 5-325 mg per tablet tiZANidine (ZANAFLEX) 4 mg tablet meloxicam (MOBIC) 7.5 mg tablet calcium carbonate 500 mg calcium (1,250 mg) chewable tablet cholecalciferol, Vitamin D3, (VITAMIN D3) 50,000 unit cap capsule levothyroxine (SYNTHROID) 75 mcg tablet Admission/Clinic Administered Medications as of 06/15/18: lidocaine 10 mg/mL (1 %) 1-2 mg injection (XYLOCAINE) lactated ringers infusion ceFAZolin iv piggyback 2 g in D5W (iso-osmotic) 100 mL (ANCEF) Problem List: Anxiety state, unspecified [F41.1] Thyroid cancer (HCC) [C73] Family history of colon cancer [Z80.0] Cervical spondylosis without myelopathy [M47.812] 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] Lumbar spondylosis [M47.816] Left hand weakness [R29.898] Depression [F32.9] Breast lump [N63.0] Tobacco abuse disorder [Z72.0] Left hip pain [M25.552] Insomnia [G47.00] Enthesopathy of hip region [M76.899] Degeneration of lumbar or lumbosacral intervertebral disc [M51.37] Backache, unspecified [M54.9] Osteoporosis [M81.0] Polyp of colon [K63.5] Familial hypercholesterolemia [E78.01] Basal cell carcinoma [C44.91] Hypothyroidism [E03.9] Former smoker [Z87.891] Allergies: No Known Allergies Date Verified:06/15/18 Lab Values Lab Value Units Date High Low POTA* 4.2 mmol/L 05/25/2018 5.1 3.7 DARIEN* 43.9 % 05/25/2018 46.0 36.0 Progress Notes ([facility]): Raheel Mukherjee DPM 06/14/2018 4:05 PM Signed I called patient today as she was stating her right 3rd and 4th toe at the pipj was bothering her. She is concerned the toe is starting to contract and rub on her shoes. I have discussed trying wider shoes and she states she has tried this and she is having pain. She would like to correct the 3rd and 4th toe while having surgery on her 2nd and 5th toes. I have discussed options for this not limited to flexor tenotomy vs arthroplasty vs arthrodesis. Patient is concerned that just cutting the tendon may not be permanent solution. While a flexor tenotomy may be an option, intermediate designer results may vary with this. She wants to have procedure that provides her with best chance of fdc solution. We discussed arthroplasty vs arthrodesis. Patient is interested in possible arthrodesis. I have discussed risks of this procedure not limited to infection, pain, swelling, bleeding, pin site infection, loss of corretion, loss of toe, recurrence of deformity. Patient understands that surgery does not guarantee successful straightening of toes. She understands all risks. She will consent for additional procdures tomorrow. Raheel Mukherjee DPM Progress Notes ([facility]): Tram Tellez LPN 06/09/2018 3:00 PM Signed Patient calling in and she is having pain persisting in the 3rd and 4th toe and would like to proceed with tonotomy on this area. I told patient I would let you know and we will get back to her. Raheel Mukherjee DPM 06/09/2018 10:08 PM Signed Please see if patient can come in or Friday so we can addend the consent SOSA Jones Ma 06/10/2018 8:44 AM Signed Contacted patient and scheduled appointment for Friday at 12:45. [facility] 05-12-2018 [facility] Office Visit (PODIWS ) PINA ORTEGA ([id number]) 1960 F Date Time Provider Department 05/12/18 9:15 AM RAHEEL MUKHERJEE During your visit today, we recorded the following information about you: Liset Diaz Ma 05/19/2018 10:40 PM Signed AMB ROOMING INTAKE FLOWSHEET DATA Risk Screening Do you have concerns about personal safety or safety in the home?: No Pain Pain Score: 6/10 Pain Location: Other: See Comment (bilateral feet) Description: Sore Duration Amount of Time: (unknown) Duration Units: Years Frequency: Continuous Intervention: Other: See comment (not wearing clossed toed shoes) Patient here to discuss surgery. States her pain happens when she wears shoes and feels like her toes are being rubbed raw. No redness or swelling present. Raheel SOSA Mukherjee 05/19/2018 10:40 PM Signed Follow up podiatric office visit for: Chief Complaint: This 58 year old who presents for follow up:hammertoes of b/l feet Patient presents to clinic for follow-up hammertoes of b/l feet. Her greatest pain is within right 2nd and right 5th toe. She has pvr to review and she is here to discuss surgical options. PAIN EVALUATION 05/12/2018 Pain Level: 6 Pain Location: Other: See Comment bilateral feet bilateral feet Description: Sore Duration Amount of Time: ? unknown unknown Duration Units: Years Frequency: Continuous Intervention: Other: See comment not wearing clossed toed shoes not wearing clossed toed shoes No results found for: HBA1C PCP: LOLI LEYVA MD PAST MEDICAL HISTORY Diagnosis Date - Anxiety state, unspecified - Cancer (HCC) thyroid - Depressive disorder major - Osteopenia - Osteoporosis - Unspecified hypothyroidism Hypothyroidism Current Outpatient Medications: ULTICARE PEN NEEDLE 31 gauge x 5/16 ndle USE DIRECTED. WITH FORTEO PARoxetine (PAXIL) 30 mg tablet TAKE 1 TABLET BY MOUTH DAILY loratadine (ALLERGY RELIEF, LORATADINE,) 10 mg tablet Take 1 tablet by mouth once daily. Teriparatide (FORTEO) 20 mcg/dose - 600 mcg/2.4 mL pnij Inject 20 mcg subcutaneously once daily. HYDROcodone-acetaminop hen (NORCO) 5-325 mg per tablet Take 1 tablet by mouth twice daily.Earliest Fill Date: 04/02/17 tiZANidine (ZANAFLEX) 4 mg tablet Take 1 tablet by mouth three times daily as needed (muscle spasms-DR LOVELACE). meloxicam (MOBIC) 7.5 mg tablet Take 1 tablet by mouth once daily. With food. calcium carbonate 500 mg calcium (1,250 mg) chewable tablet Take 1 tablet by mouth twice daily. cholecalciferol, Vitamin D3, (VITAMIN D3) 50,000 unit cap capsule Take 1 capsule by mouth once each week. levothyroxine (SYNTHROID) 75 mcg tablet TAKE 1 TABLET BY MOUTH DAILY ON EMPTY STOMACH FOR THYROID No current facility-administered medications for this visit. ALLERGIES No Known Allergies PAST SURGICAL HISTORY Procedure Laterality Date - COLONOSCOP W/ OR W/O [facility] SPEC 02/17/2018 Colonoscopy - COLONOSCOPY 07/26 - HEMORRHOID;BAND LIGAT, SNGL/MUL 1986 Hemorrhoidectomy - HYSTERECTOMY HX 2000 - LIGATE FALLOPIAN TUBE 1988 Tubal ligation - REMOVAL ADENOIDS,PRIMARY,<12 Y/O Adenoidectomy - REMOVAL OF TONSILS,<12 Y/O Tonsillectomy - THYROIDECTOMY 2005 Physical Exam: Constitutional: Pt is a well developed 58 year old female who is alert, oriented, cooperative and in no apparent distress. OBJECTIVE: NVSI unchanged from previous visit. Dermatological: Nails 1-5 b/l are normal. Webspaces clean and dry 1-4 b/l. Skin appears well hydrated and supple. good color, texture, turgor. No open lesions present. No callosities present. Musculoskeletal/Orthop aedic: Patient has rigid hammertoe of right 2nd dipj. There are flexible hammertoes of right 3rd, 4th and 5th toe. There are flexible hammertoes of left 2nd, 3rd, 4th and 5th toes Patient has pain to right 2nd dipj and right 5th pipj ASSESSMENT: (M20.42) Hammertoe of left foot (primary encounter diagnosis (M20.41) Hammertoe of right foot PLAN: 1. History and physical examination completed today. 2. Discussed hammertoes of b/l feet. Her greatest pain is along the right 2nd dipj and right pipj. 3. Discussed conservative options not limited to wider shoes, padding, lambs wool vs surgical options. 4. Surgical options for right foot include dipj fusion of right 2nd toe and derotational arthroplasty of right 5th toe. Discussed options for right 3rd and 4th toe. On weightbearing exam, there is rectus presentation with no significant contracture. She complains of pain. If patient has pain, a flexor tenotomy of right 3rd and 4th toe could be option. Informed patient of risks of procedure not limited to infection, pain, swelling, bleeding, loss of correction, pin site infection, loss of toe, recurrent hammertoe, wound complications. 5. Patient would like to proceed with dipj fusion of right 2nd toe and derotational arthroplasty of right 5th toe. She consents for this procedure. She will monitor for pain of right 3rd and 4th toe and if pain present, consider flexor tenotomy of right 3rd and 4th toe. Raheel Mukherjee DPM Referring Provider: RAHEEL MUKHERJEE [[id number]] Allergies As of Date: 05/12/2018 (No Known Allergies) Date Reviewed: 05/12/2018 Reviewed by: Liset Diaz Ma - Fully Assessed Reason for Visit: Established Patient [175] Primary Visit Diagnosis:Hammertoe of left foot [M20.42] Other Visit Diagnosis:Hammertoe of right foot [M20.41] Prescriptions as of 05/12/2018 Sig: ULTICARE PEN NEEDLE 31 GAUGE * USE DIRECTED. WITH FORTEO PAROXETINE 30 MG TABLET TAKE 1 TABLET BY MOUTH DAILY LORATADINE 10 MG TABLET Take 1 tablet by mouth once d* TERIPARATIDE 20 MCG/DOSE (600* Inject 20 mcg subcutaneously * HYDROCODONE 5 MG-ACETAMINOPHE* Take 1 tablet by mouth twice * TIZANIDINE 4 MG TABLET Take 1 tablet by mouth three * MELOXICAM 7.5 MG TABLET Take 1 tablet by mouth once d* CALCIUM CARBONATE 500 MG CALC* Take 1 tablet by mouth twice * CHOLECALCIFEROL (VITAMIN D3) * Take 1 capsule by mouth once * LEVOTHYROXINE 75 MCG TABLET TAKE 1 TABLET BY MOUTH DAILY * Problem List As Of Date 05/12/2018 Noted Resolved ANXIETY STATE NOS [F41.1] Thyroid cancer (HCC) [C73] INVALID FOR* More... Family history of colon cancer [Z80.0] INVALID FOR* More... Cervical spondylosis without myelopathy [M47.81*INVALID FOR* More... 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] INVALID FOR* Lumbar spondylosis [M47.816] INVALID FOR* More... Left hand weakness [R29.898] INVALID FOR* Depression [F32.9] INVALID FOR* More... Breast lump [N63.0] INVALID FOR* More... Tobacco abuse disorder [Z72.0] INVALID FOR* More... Left hip pain [M25.552] INVALID FOR* More... Insomnia [G47.00] INVALID FOR* More... Enthesopathy of hip region [M76.899] INVALID FOR* Degeneration of lumbar or lumbosacral intervert*INVALID FOR* Backache, unspecified [M54.9] INVALID FOR* Osteoporosis [M81.0] INVALID FOR* More... Polyp of colon [K63.5] INVALID FOR* More... Familial hypercholesterolemia [E78.01] INVALID FOR* More... Basal cell carcinoma [C44.91] INVALID FOR* Letter Text Podiatric Medicine and Surgery Raheel Mukherjee DPM [facility]AC[facility] [address] [place] [address] SURGERY CONFIRMATION FORM Your surgery is scheduled for: 06/15/2018 at the [facility]. You will be contacted by 3pm the day prior (Friday) to your surgery to review pre-operative instructions and confirm your arrival time. If you have not received a telephone call by 3pm, please contact [facility] at [phone]. Use Entrance A near the back of the hospital, where there is a covered patient drop off area. Take the elevator to the 1st floor and report to the Surgery Information Desk for check in. You will need to make sure that you have a responsible adult to drive you home the day of surgery. Plan to rest at home, same day surgery does not mean same day recovery. Proper rest helps you recover sooner. You will also need to bring a copy of your living will and/or health care power of defense attorney, provided you have one. Hold all NSAIDS 7 days prior to surgical date. Hold all anticoagulants 5 days prior to surgical date, with permission of prescribing physician. The night before: Nothing to eat or drink after midnight. The day of: Take prescribed medications as approved by physician with small sips of water. Please do not wear any forms of jewelry, make up, or nail sao tomean/toenail sao tomean. Make sure to leave all valuables at home. Your post-op appointments with Dr. Mukherjee are scheduled for: 06/19;;07/03 You will receive a phone call to schedule an appointment in Pre-Anesthesia Consultation Clinic prior to your surgical date. This appointment will help determine if you have any risk factors for undergoing anesthesia. If you have any further questions, please do not hesitate to contact our office. Encounter Status:Closed by RAHEEL MUKHERJEE DPM on 05/19/18 [facility] PROGRESSon 05-12-2018 PROGRESS HNO ID: [id number] Author: Liset Diaz Ma Service: ? Author Type: ? Type: Progress Notes Filed: 05/19/2018 10:40 PM Note Text: AMB ROOMING INTAKE FLOWSHEET DATA Risk Screening Do you have concerns about personal safety or safety in the home?: No Pain Pain Score: 6/10 Pain Location: Other: See Comment (bilateral feet) Description: Sore Duration Amount of Time: (unknown) Duration Units: Years Frequency: Continuous Intervention: Other: See comment (not wearing clossed toed shoes) Patient here to discuss surgery. States her pain happens when she wears shoes and feels like her toes are being rubbed raw. No redness or swelling present. [facility] CNOVon 04-28-2018 CNOV Office Visit (PODIWS ) PINA ORTEGA ([id number]) 1960 F Date Time Provider Department 04/28/18 2:55 PM RAHEEL MUKHERJEE PODIWS During your visit today, we recorded the following information about you: Noemi Coronel RN 04/28/2018 9:05 PM Signed AMB ROOMING INTAKE FLOWSHEET DATA Risk Screening Do you have concerns about personal safety or safety in the home?: No Pain Pain Score: 8/10 Pain Location: Other: See Comment (bilateral feet) Description: Sore Duration Amount of Time: (several) Duration Units: Years Frequency: Intermittent Intervention: Relaxation, Other: See comment (offloading pads) New patient presents with hammer toes, bilateral feet for the past several years. She reports toes rub and cause pain and develop ulcers. She has tried offloading pads in the past but states it didn't help. She states going barefoot is the only thing that seems to help. She has xrays to review. Raheel MukherjeeSOSA 04/28/2018 9:05 PM Signed Initial Podiatric Office Visit: Chief Complaint: This 58 year old female who presents with chief complaint:hammertoes of b/l feet HPI Patient presents to clinic with complaint of hammertoes of b/l feet The primary toes that bother her is the 2nd toe of b/l feet and the lateral aspect of b/l 5th She states that the toes will rub and lead to ulcerations or blisters Patient treats herself with padding and wider shoes and/or open toe shoes to avoid rubbing. She has new xrays to review. She has history of smoking but no longer does x 3 years. PAIN EVALUATION 04/28/2018 Pain Score: 8 Pain Location: Other: See Comment bilateral feet Description: Sore Duration Amount of Time: - several Duration Units: Years Frequency: Intermittent Intervention: Relaxation;Other: See comment offloading pads No results found for: HBA1C PCP: LOLI LEYVA MD PAST MEDICAL HISTORY Diagnosis Date - Anxiety state, unspecified - Cancer (HCC) thyroid - Depressive disorder major - Osteopenia - Osteoporosis - Unspecified hypothyroidism Hypothyroidism Current Outpatient Prescriptions: ULTICARE PEN NEEDLE 31 gauge x 07/30 ndle USE DIRECTED. WITH FORTEO PARoxetine (PAXIL) 30 mg tablet TAKE 1 TABLET BY MOUTH DAILY loratadine (ALLERGY RELIEF, LORATADINE,) 10 mg tablet Take 1 tablet by mouth once daily. Teriparatide (FORTEO) 20 mcg/dose - 600 mcg/2.4 mL pnij Inject 20 mcg subcutaneously once daily. HYDROcodone-acetaminop hen (NORCO) 5-325 mg per tablet Take 1 tablet by mouth twice daily.Earliest Fill Date: 04/02/17 tiZANidine (ZANAFLEX) 4 mg tablet Take 1 tablet by mouth three times daily as needed (muscle spasms-DR LOVELACE). meloxicam (MOBIC) 7.5 mg tablet Take 1 tablet by mouth once daily. With food. calcium carbonate 500 mg calcium (1,250 mg) chewable tablet Take 1 tablet by mouth twice daily. cholecalciferol, Vitamin D3, (VITAMIN D3) 50,000 unit cap capsule Take 1 capsule by mouth once each week. levothyroxine (SYNTHROID) 75 mcg tablet TAKE 1 TABLET BY MOUTH DAILY ON EMPTY STOMACH FOR THYROID No current facility-administered medications for this visit. ALLERGIES No Known Allergies PAST SURGICAL HISTORY Procedure Laterality Date - [facility]COP [facility] 02/17/2018 Colonoscopy - COLONOSCOPY 07/26 - HEMORRHOID;BAND LIGAT, SNGL/MUL 1986 Hemorrhoidectomy - HYSTERECTOMY HX 2000 - LIGATE FALLOPIAN TUBE 1988 Tubal ligation - REMOVAL ADENOIDS,PRIMARY,<12 Y/O Adenoidectomy - REMOVAL OF TONSILS,<12 Y/O Tonsillectomy - THYROIDECTOMY 2005 FAMILY HISTORY Problem Relation Age of Onset - Hypertension Mother - Heart Mother CHF HAD BYPASS SURGERY - Hypertension Father - Cancer Father skin - Colon Cancer Brother at age 55 Social History Marital status: Spouse name: Years of education: Number of children: Social History Main Topics Smoking status: Former Smoker Packs/day: 0.50 Years: 35.00 Types: Cigarettes Quit date: 08/15/2014 Smokeless tobacco: Never Used Alcohol use: Yes Comment: occ beer and wine Drug use: No REVIEW OF SYSTEMS GENERAL: Negative for Malaise, significant weight loss, fever RESPIRATORY: Negative for cough, wheezing and shortness of breath CARDIOVASCULAR: Negative for chest pain, leg swelling and palpitations GI: Negative for abdominal discomfort, blood in stools or black stools and change in bowel habits : Negative for dysuria, frequency and incontinence MUSCULOSKELETAL: Negative for joint pain or swelling, back pain, and muscle pain. SKIN: Negative for lesions, rash, and itching. HEMATOLOGY/LYMPHOLOGY Negative for prolonged bleeding, bruising easily, and swollen nodes. ENDOCRINE: Negative for cold or heat intolerance, polyuria, polydipsia and goiter. NEURO: negative Physical Exam: Constitutional: Pt is a well developed 58 year old female who is alert, oriented and cooperative Eyes: Following during examination. No redness or drainage. Respiratory: RR normal and nonlabored. Even breathing. No evidence of distress or shortness of breath. Psychology: Patient is engaged during conversation. Normal affect and mood. Does not appear depressed or anxious during encounter. Vascular: Dorsalis pedis and posterior tibial pulses faintly palpable as b/l Capillary Fill time < 5 seconds to digits 1-5 b/l Skin temperature warm to warm proximal to distal b/l Hair growth present to digits Neurological: intact light touch/epicritic sensation b/l intact protective sensation no significant neurological deficits Dermatological: Nails 1-5 b/l appear normal. Webspaces clean and dry 1-4 b/l. Skin appears well hydrated and supple. good color, texture, turgor. No open lesions present. No callosities present. Musculoskeletal/Orthop aedic: Patient has pain to palpation of dorsal aspect of left 2nd pipj and distal aspect of right 2nd pipj. There is pain to palpation of b/l proximal phalanx of 5th toe Foot type is neutal structurally AJ ROM is full with knee extended and flexed 1st MPJ is full when loaded and no pain or crepitus are noted with ROM. MTJ, STJ are full and free of pain and crepitus. +5/5 muscle strength dorsiflexion, plantarflexion, inversion, eversion b/l Flexible hammertoes are present to left 2nd, 3rd, 4th and 5th toes. There is adductovarus of b/l 5th toe. There is rigid hammertoe of right 2nd dipj. Flexible hammertoes noted to right 3-5 Radiographs: 3 views b/l foot ordered April 28, 2018: I have personally reviewed and interpreted these XR myself: No acute fracture is noted. There are hammertoes deformity of b/l feet ASSESSMENT: (M20.42) Hammertoe of left foot (primary encounter diagnosis) (M20.41) Hammertoe of right foot (R09.89) Diminished pulses in lower extremity PLAN: 1. History and physical examination performed. 2. XR reviewed with patient and interpreted today 3. Discussed hammertoes of b/l feet. 4. On her left foot, toes 2-5 are flexible. Discussed conservative options not limited to padding and wider shoes vs surgical options. Given the flexible nature of toes, she may be candidate for flexor tenotomy of left 2nd, 3rd, 4th toes. A flexor tenotomy with derotational arthroplasty of left 5th toe may be an option. 5. On the right foot, the 2nd toe dipj is rigid so I suspect surgery, she would require dipj fusion with possible flexor tenotomy. The right 3rd, 4th and 5th toe could include flexor tenotomy with derotational arthroplasty of right 5th toe. 6. Would recommend surgery on one foot at a time. 7. She has hx of smoking so I would recommend pvr to assure abiltiy to heal post-op 8. Will call with results. SOSA Jones DPM Hannah Byler Ma 04/28/2018 3:06 PM Signed Will call with results. Referring Provider: SELF [[id number]] Allergies As of Date: 04/28/2018 (No Known Allergies) Date Reviewed: 04/28/2018 Reviewed by: Noemi Coronel RN - Fully Assessed Reason for Visit: New Patient [172] Primary Visit Diagnosis:Hammertoe of left foot [M20.42] Other Visit Diagnoses:Hammertoe of right foot [M20.41] Diminished pulses in lower extremity [R09.89] Order(s):PVR ANK PRESS [facility] [[id number]] Order #: [id number] FUTURE Prescriptions as of 04/28/2018 Sig: ULTICARE PEN NEEDLE 31 GAUGE * USE DIRECTED. WITH FORTEO PAROXETINE 30 MG TABLET TAKE 1 TABLET BY MOUTH DAILY LORATADINE 10 MG TABLET Take 1 tablet by mouth once d* TERIPARATIDE 20 MCG/DOSE (600* Inject 20 mcg subcutaneously * HYDROCODONE 5 MG-ACETAMINOPHE* Take 1 tablet by mouth twice * TIZANIDINE 4 MG TABLET Take 1 tablet by mouth three * MELOXICAM 7.5 MG TABLET Take 1 tablet by mouth once d* CALCIUM CARBONATE 500 MG CALC* Take 1 tablet by mouth twice * CHOLECALCIFEROL (VITAMIN D3) * Take 1 capsule by mouth once * LEVOTHYROXINE 75 MCG TABLET TAKE 1 TABLET BY MOUTH DAILY * Problem List As Of Date 04/28/2018 Noted Resolved ANXIETY STATE NOS [F41.1] Thyroid cancer (HCC) [C73] INVALID FOR* More... Family history of colon cancer [Z80.0] INVALID FOR* More... Cervical spondylosis without myelopathy [M47.81*INVALID FOR* More... 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] INVALID FOR* Lumbar spondylosis [M47.816] INVALID FOR* More... Left hand weakness [R29.898] INVALID FOR* Depression [F32.9] INVALID FOR* More... Breast lump [N63.0] INVALID FOR* More... Tobacco abuse disorder [Z72.0] INVALID FOR* More... Left hip pain [M25.552] INVALID FOR* More... Insomnia [G47.00] INVALID FOR* More... Enthesopathy of hip region [M76.899] INVALID FOR* Degeneration of lumbar or lumbosacral intervert*INVALID FOR* Backache, unspecified [M54.9] INVALID FOR* Osteoporosis [M81.0] INVALID FOR* More... Polyp of colon [K63.5] INVALID FOR* More... Familial hypercholesterolemia [E78.01] INVALID FOR* More... Basal cell carcinoma [C44.91] INVALID FOR* Other instructions from your clinician: Will call with results. Encounter Status:Closed by RAHEEL MUKHERJEE DPM on 04/28/18 [facility] PROGRESSon 04-28-2018 PROGRESS HNO ID: [id number] Author: Raheel Mukherjee Service: (none) Author Type: Physician Type: Progress Notes Filed: 04/28/2018 9:05 PM Note Text: Initial Podiatric Office Visit: Chief Complaint: This 58 year old female who presents with chief complaint:hammertoes of b/l feet HPI Patient presents to clinic with complaint of hammertoes of b/l feet The primary toes that bother her is the 2nd toe of b/l feet and the lateral aspect of b/l 5th She states that the toes will rub and lead to ulcerations or blisters Patient treats herself with padding and wider shoes and/or open toe shoes to avoid rubbing. She has new xrays to review. She has history of smoking but no longer does x 3 years. PAIN EVALUATION 04/28/2018 Pain Score: 8 Pain Location: Other: See Comment bilateral feet Description: Sore Duration Amount of Time: - several Duration Units: Years Frequency: Intermittent Intervention: Relaxation;Other: See comment offloading pads No results found for: HBA1C PCP: LOLI LEYVA MD PAST MEDICAL HISTORY Diagnosis Date - Anxiety state, unspecified - Cancer (HCC) thyroid - Depressive disorder major - Osteopenia - Osteoporosis - Unspecified hypothyroidism Hypothyroidism Current Outpatient Prescriptions: ULTICARE PEN NEEDLE 31 gauge x 07/30 nd USE DIRECTED. WITH FORTEO PARoxetine (PAXIL) 30 mg tablet TAKE 1 TABLET BY MOUTH DAILY loratadine (ALLERGY RELIEF, LORATADINE,) 10 mg tablet Take 1 tablet by mouth once daily. Teriparatide (FORTEO) 20 mcg/dose - 600 mcg/2.4 mL pnij Inject 20 mcg subcutaneously once daily. HYDROcodone-acetaminop hen (NORCO) 5-325 mg per tablet Take 1 tablet by mouth twice daily.Earliest Fill Date: 04/02/17 tiZANidine (ZANAFLEX) 4 mg tablet Take 1 tablet by mouth three times daily as needed (muscle spasms-DR LOVELACE). meloxicam (MOBIC) 7.5 mg tablet Take 1 tablet by mouth once daily. With food. calcium carbonate 500 mg calcium (1,250 mg) chewable tablet Take 1 tablet by mouth twice daily. cholecalciferol, Vitamin D3, (VITAMIN D3) 50,000 unit cap capsule Take 1 capsule by mouth once each week. levothyroxine (SYNTHROID) 75 mcg tablet TAKE 1 TABLET BY MOUTH DAILY ON EMPTY STOMACH FOR THYROID No current facility-administered medications for this visit. ALLERGIES No Known Allergies PAST SURGICAL HISTORY Procedure Laterality Date - COLONOSCOP W/ OR W/O [facility] SPEC 02/17/2018 Colonoscopy - COLONOSCOPY 07/26 - HEMORRHOID;BAND LIGAT, SNGL/MUL 1986 Hemorrhoidectomy - HYSTERECTOMY HX 2000 - LIGATE FALLOPIAN TUBE 1988 Tubal ligation - REMOVAL ADENOIDS,PRIMARY,<12 Y/O Adenoidectomy - REMOVAL OF TONSILS,<12 Y/O Tonsillectomy - THYROIDECTOMY 2005 FAMILY HISTORY Problem Relation Age of Onset - Hypertension Mother - Heart Mother CHF HAD BYPASS SURGERY - Hypertension Father - Cancer Father skin - Colon Cancer Brother at age 55 Social History Marital status: Spouse name: Years of education: Number of children: Social History Main Topics Smoking status: Former Smoker Packs/day: 0.50 Years: 35.00 Types: Cigarettes Quit date: 08/15/2014 Smokeless tobacco: Never Used Alcohol use: Yes Comment: occ beer and wine Drug use: No REVIEW OF SYSTEMS GENERAL: Negative for Malaise, significant weight loss, fever RESPIRATORY: Negative for cough, wheezing and shortness of breath CARDIOVASCULAR: Negative for chest pain, leg swelling and palpitations GI: Negative for abdominal discomfort, blood in stools or black stools and change in bowel habits : Negative for dysuria, frequency and incontinence MUSCULOSKELETAL: Negative for joint pain or swelling, back pain, and muscle pain. SKIN: Negative for lesions, rash, and itching. HEMATOLOGY/LYMPHOLOGY Negative for prolonged bleeding, bruising easily, and swollen nodes. ENDOCRINE: Negative for cold or heat intolerance, polyuria, polydipsia and goiter. NEURO: negative Physical Exam: Constitutional: Pt is a well developed 58 year old female who is alert, oriented and cooperative Eyes: Following during examination. No redness or drainage. Respiratory: RR normal and nonlabored. Even breathing. No evidence of distress or shortness of breath. Psychology: Patient is engaged during conversation. Normal affect and mood. Does not appear depressed or anxious during encounter. Vascular: Dorsalis pedis and posterior tibial pulses faintly palpable as b/l Capillary Fill time < 5 seconds to digits 1-5 b/l Skin temperature warm to warm proximal to distal b/l Hair growth present to digits Neurological: intact light touch/epicritic sensation b/l intact protective sensation no significant neurological deficits Dermatological: Nails 1-5 b/l appear normal. Webspaces clean and dry 1-4 b/l. Skin appears well hydrated and supple. good color, texture, turgor. No open lesions present. No callosities present. Musculoskeletal/Orthop aedic: Patient has pain to palpation of dorsal aspect of left 2nd pipj and distal aspect of right 2nd pipj. There is pain to palpation of b/l proximal phalanx of 5th toe Foot type is neutal structurally AJ ROM is full with knee extended and flexed 1st MPJ is full when loaded and no pain or crepitus are noted with ROM. MTJ, STJ are full and free of pain and crepitus. +5/5 muscle strength dorsiflexion, plantarflexion, inversion, eversion b/l Flexible hammertoes are present to left 2nd, 3rd, 4th and 5th toes. There is adductovarus of b/l 5th toe. There is rigid hammertoe of right 2nd dipj. Flexible hammertoes noted to right 3-5 Radiographs: 3 views b/l foot ordered April 28, 2018: I have personally reviewed and interpreted these XR myself: No acute fracture is noted. There are hammertoes deformity of b/l feet ASSESSMENT: (M20.42) Hammertoe of left foot (primary encounter diagnosis) (M20.41) Hammertoe of right foot (R09.89) Diminished pulses in lower extremity PLAN: 1. History and physical examination performed. 2. XR reviewed with patient and interpreted today 3. Discussed hammertoes of b/l feet. 4. On her left foot, toes 2-5 are flexible. Discussed conservative options not limited to padding and wider shoes vs surgical options. Given the flexible nature of toes, she may be candidate for flexor tenotomy of left 2nd, 3rd, 4th toes. A flexor tenotomy with derotational arthroplasty of left 5th toe may be an option. 5. On the right foot, the 2nd toe dipj is rigid so I suspect surgery, she would require dipj fusion with possible flexor tenotomy. The right 3rd, 4th and 5th toe could include flexor tenotomy with derotational arthroplasty of right 5th toe. 6. Would recommend surgery on one foot at a time. 7. She has hx of smoking so I would recommend pvr to assure abiltiy to heal post-op 8. Will call with results. SOSA Jones DPM [facility] PROGRESS HNO ID: [id number] Author: Noemi Coronel RN Service: (none) Author Type: (none) Type: Progress Notes Filed: 04/28/2018 9:05 PM Note Text: AMB ROOMING INTAKE FLOWSHEET DATA Risk Screening Do you have concerns about personal safety or safety in the home?: No Pain Pain Score: 8/10 Pain Location: Other: See Comment (bilateral feet) Description: Sore Duration Amount of Time: (several) Duration Units: Years Frequency: Intermittent Intervention: Relaxation, Other: See comment (offloading pads) New patient presents with hammer toes, bilateral feet for the past several years. She reports toes rub and cause pain and develop ulcers. She has tried offloading pads in the past but states it didn't help. She states going barefoot is the only thing that seems to help. She has xrays to review. [facility] PROGRESS HNO ID: [id number] Author: Angelique Thomas Rt Service: (none) Author Type: (none) Type: Progress Notes Filed: 04/28/2018 1:53 PM Note Text: Radiology Service Progress Note PATIENT NAME: Pina Ortega DATE OF SERVICE: April 28, 2018 TIME: 1:42 PM PATIENT IDENTITY VERIFICATION COMPLETED USING TWO (2) METHODS: Patient confirmed name verbally and Date of . PATIENT GENDER DATA: Female. status: : No status: NO. PATIENT RELEVANT IMPLANT DATA REVIEWED: Not Applicable RADIOLOGY DEPARTMENT: General X-ray: Exam(s) Completed: Lower Extremity X-Ray(s): Feet, Bilateral and Wt. Bearing: PERIPHERAL IV DATA: Not applicable SIGNED BY: Angelique Thomas Rt April 28, 2018 1:42 PM [facility] XR FOOT 3V AP/LAT/OBL BILon 04-28-2018 XR FOOT 3V AP/LAT/OBL NURA * * *Final Report* * * DATE OF EXAM: Apr 28 2018 1:53PM [id number] - XR FOOT 3V AP/LAT/OBL NURA / PROCEDURE REASON: Pain * * * * Physician Interpretation * * * * BOTH FEET INDICATIONS: Pain TECHNIQUE: AP and lateral standing and oblique views were performed of both feet. RESULT: The osseous structures are intact. There is pes planus bilaterally. Joint spaces of both feet are maintained. There are no erosive changes identified. There is a small calcaneal spur at the insertion of the right plantar fascia. IMPRESSION: BILATERAL PES PLANUS AND A SMALL RIGHT CALCANEAL PLANTAR SPUR. Strategic Planner[facility] Transcribe Date/Time: Apr 28 2018 6:26P Dictated by : HECTOR KHAN MD This examination was interpreted and the report reviewed and electronically signed by: HECTOR KHAN MD on Apr 28 2018 6:29PM EST [id number] [facility] HISTORY PHYSICALon 8 HISTORY PHYSICAL HNO ID: [id number] Author: Nilay Hankins Service: General Surgery Author Type: Physician Type: HANDP Filed: 02/17/2018 12:12 PM Note Text: PROCEDURAL SEDATION HISTORY AND PHYSICAL EXAM SERVICE DATE: 02/17/2018 SERVICE TIME: 12:12 PM Subjective HPI: This is a 57 year old female who presents for follow up screening for a colon polyp at 50cm PAST ANESTHESIA HISTORY: No history of adverse event PAST MEDICAL HISTORY Diagnosis Date - Anxiety state, unspecified - Cancer (HCC) thyroid - Depressive disorder major - Osteopenia - Osteoporosis - Unspecified hypothyroidism Hypothyroidism PAST SURGICAL HISTORY Procedure Laterality Date - COLONOSCOPY 07/26 - HEMORRHOID;BAND LIGAT, SNGL/MUL 1986 Hemorrhoidectomy - HYSTERECTOMY HX 2000 - LIGATE FALLOPIAN TUBE 1988 Tubal ligation - REMOVAL ADENOIDS,PRIMARY,<12 Y/O Adenoidectomy - REMOVAL OF TONSILS,<12 Y/O Tonsillectomy - THYROIDECTOMY 2005 Prior to Admission medications as of 02/17/18 0914 Medication Sig Last Dose Taking ULTICARE PEN NEEDLE 31 gauge x 07/30 ndle USE DIRECTED. WITH FORTEO 02/16/2018 at Unknown time Yes PARoxetine (PAXIL) 30 mg tablet TAKE 1 TABLET BY MOUTH DAILY 02/16/2018 at Unknown time Yes Teriparatide (FORTEO) 20 mcg/dose - 600 mcg/2.4 mL pnij Inject 20 mcg subcutaneously once daily. 02/16/2018 at Unknown time Yes tiZANidine (ZANAFLEX) 4 mg tablet Take 1 tablet by mouth three times daily as needed (muscle spasms-DR LOVELACE). 02/16/2018 at Unknown time Yes meloxicam (MOBIC) 7.5 mg tablet Take 1 tablet by mouth once daily. With food. 02/16/2018 at Unknown time Yes levothyroxine (SYNTHROID) 75 mcg tablet TAKE 1 TABLET BY MOUTH DAILY ON EMPTY STOMACH FOR THYROID 02/16/2018 at Unknown time Yes loratadine (ALLERGY RELIEF, LORATADINE,) 10 mg tablet Take 1 tablet by mouth once daily. Unknown at Unknown time HYDROcodone-acetaminop hen (NORCO) 5-325 mg per tablet Take 1 tablet by mouth twice daily. Earliest Fill Date: 04/02/17 Unknown at Unknown time calcium carbonate 500 mg calcium (1,250 mg) chewable tablet Take 1 tablet by mouth twice daily. Unknown at Unknown time cholecalciferol, Vitamin D3, (VITAMIN D3) 50,000 unit cap capsule Take 1 capsule by mouth once each week. Unknown at Unknown time ALLERGIES No Known Allergies Objective PHYSICAL EXAM: The remainder of the physical exam is noncontributory. AIRWAY: Airway Visualization of Uvula: Yes Mouth opening greater than 2 fingerbreadths: Yes Neck Full Range of Motion: Yes LUNGS: Lungs clear to auscultation, Good diaphragmatic excursion CARDIAC: Normal S1 and S2; no rubs, murmurs, or gallops Assessment/Plan ASA Class: ASA Class:: Patient with mild systemic disease Active Problems: * No active hospital problems. * Resolved Problems: * No resolved hospital problems. * Provisional Diagnosis/Treatment Plan: high risk screening colonoscopy SEDATION GOAL: Moderate SIGNATURE: Nilay Hankins MD PATIENT NAME: Pina Ortega DATE: February 17, 2018 TIME: 12:12 PM PAGER: [facility] NURSING PROGon 02-17-2018 NURSING PROG HNO ID: [id number] Author: Arnav Powers RN Service: Nursing Author Type: Registered Nurse Type: Nursing Progress Note Filed: 02/17/2018 1:07 PM Note Text: Patient did not experience a fall prior to discharge. Patient did not experience a burn prior to discharge. Arnav Powers RN [facility] NURSING PROG HNO ID: [id number] Author: Arnav Powers RN Service: Nursing Author Type: Registered Nurse Type: Nursing Progress Note Filed: 02/17/2018 12:36 PM Note Text: Awakening to tolerate snack, sister at her side.No complaints. [facility] NURSING PROG HNO ID: [id number] Author: Arnav Powers RN Service: Nursing Author Type: Registered Nurse Type: Nursing Progress Note Filed: 02/17/2018 12:20 PM Note Text: Sister to her side, Dr Hankins to speak to patient and sister. No complaints, all safety maintained. [facility] NURSING PROG HNO ID: [id number] Author: Arnav Powers RN Service: Nursing Author Type: Registered Nurse Type: Nursing Progress Note Filed: 02/17/2018 12:14 PM Note Text: Pt into Endo recovery room in satisfactory condition. Resting on left side. Pt. sleepy but arousable. Abdomen soft, no complaints, all safety maintained. Will continue to monitor. [facility] NURSING PROG HNO ID: [id number] Author: Maye LirianoRnOmid Patel RN Service: Nursing Author Type: Registered Nurse Type: Nursing Progress Note Filed: 02/17/2018 12:08 PM Note Text: Patient did not experience a fall within the Intraoperative area. Patient did not experience a burn within the Intraoperative area.Maye Patel RN [facility] NURSING PROG HNO ID: [id number] Author: Arnav Powers RN Service: Nursing Author Type: Registered Nurse Type: Nursing Progress Note Filed: 02/17/2018 11:43 AM Note Text: [facility] PRE-OP NURSING HAND OFF NOTE SBAR Hand off given to Maye Patel RN. Hand off was communicated verbally and at the patient's bedside and all questions were answered. FALLS/ABREU Patient did not experience a fall within the Preoperative area. Patient did not experience a burn within the Preoperative area. Arnav Powers RN [facility] PT EDon 02-17-2018 PT ED HNO ID: [id number] Author: Arnav Powers RN Service: Nursing Author Type: Registered Nurse Type: Patient Education Filed: 02/17/2018 12:49 PM Note Text: POST OP LEARNING RESPONSE INSTRUCTION PROVIDED TO: Patient and family member METHOD OF INSTRUCTION: Individual instruction Written instruction - handouts Verbal instruction PATIENT / FAMILY RESPONSE: Information received as demonstrated by interest and questions FOLLOW-UP PLAN: Patient instructed to call with any further issues SUPPLEMENTAL MATERIAL: None REFERRAL (RECOMMENDATION): None Electronically Signed By: Arnav Powers RN In Department: AMBULATORY SURGERY [facility] PT ED HNO ID: [id number] Author: Arnav Powers RN Service: Nursing Author Type: Registered Nurse Type: Patient Education Filed: 02/17/2018 12:41 PM Note Text: POST OP LEARNING RESPONSE INSTRUCTION PROVIDED TO: Patient and family member METHOD OF INSTRUCTION: Individual instruction Written instruction - handouts Verbal instruction PATIENT / FAMILY RESPONSE: Information received as demonstrated by interest and questions FOLLOW-UP PLAN: Patient instructed to call with any further issues SUPPLEMENTAL MATERIAL: None REFERRAL (RECOMMENDATION): None Electronically Signed By: Arnav Powers RN In Department: AMBULATORY SURGERY [facility] PT ED HNO ID: [id number] Author: Arnav Powers RN Service: Nursing Author Type: Registered Nurse Type: Patient Education Filed: 02/17/2018 9:51 AM Note Text: PRE OP LEARNING ASSESSMENT PROCEDURE/SURGERY: GI PROCEDURES: Colonoscopy READINESS TO LEARN COGNITIVE ABILITY: Alert and oriented MOTIVATION TO LEARN: Eager Interested FAMILY SUPPORT: High - Very involved in pt care PATIENT LEARNS BEST BY: Multiple Methods FACTORS AFFECTING LEARNING: None PHYSICAL LIMITATIONS AFFECTING LEARNING: None Electronically Signed By: Arnav Powers RN In Department: AMBULATORY SURGERY [facility] 02-10-2018 HOSP Patient:Pina Ortega MRN: Height:5' 7(1.702 m) Weight:No patient weight recorded within the last 30 days. Outpatient Medications as of 02/17/18: ULTICARE PEN NEEDLE 31 gauge x 5/16 ndle PARoxetine (PAXIL) 30 mg tablet loratadine (ALLERGY RELIEF, LORATADINE,) 10 mg tablet Teriparatide (FORTEO) 20 mcg/dose - 600 mcg/2.4 mL pnij HYDROcodone-acetaminop hen (NORCO) 5-325 mg per tablet tiZANidine (ZANAFLEX) 4 mg tablet meloxicam (MOBIC) 7.5 mg tablet calcium carbonate 500 mg calcium (1,250 mg) chewable tablet cholecalciferol, Vitamin D3, (VITAMIN D3) 50,000 unit cap capsule levothyroxine (SYNTHROID) 75 mcg tablet Admission/Clinic Administered Medications as of 02/17/18: lactated ringers infusion Problem List: Anxiety state, unspecified [F41.1] Thyroid cancer (HCC) [C73] Family history of colon cancer [Z80.0] Cervical spondylosis without myelopathy [M47.812] 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] Lumbar spondylosis [M47.816] Left hand weakness [R29.898] Depression [F32.9] Breast lump [N63.0] Tobacco abuse disorder [Z72.0] Left hip pain [M25.552] Insomnia [G47.00] Enthesopathy of hip region [M76.899] Degeneration of lumbar or lumbosacral intervertebral disc [M51.37] Backache, unspecified [M54.9] Osteoporosis [M81.0] Polyp of colon [K63.5] Familial hypercholesterolemia [E78.01] Basal cell carcinoma [C44.91] Allergies: No Known Allergies Date Verified:02/17/18 Lab Values No results within the last 30 days for the following basenames: K,HCT Progress Notes ([facility]): Radha Hernandez 02/10/2018 10:34 AM Signed Scheduled patient for open access colonoscopy with per patients request, mailing colonoscopy instructions Radha Mcnallyonelia [facility] OPEN ACCESS QUESTIONNAIRE 1. Are you or could you be ? No 2. Are you currently having any stomach/gastrointestin al issues at this time such as constipation, diarrhea, abdominal pain, rectal bleeding etc? Yes / Always Constipated 3. Do you have an implanted device such as a defibrillator, pacemaker, Cardiac Stent or deep brain stimulation device? No 4. Do you have any new or past cardiac (heart) or pulmonary (lung) issues? No 5. Is the patient's BMI 40 or greater? No:There is no height or weight on file to calculate BMI.. Last Wt 04/02/17 : 79.4 kg (175 lb) Last Ht 12/10/16 : 170.2 cm (5' 7) 6. Have you had difficulty with prior sedations or complications with other procedures? No 7. Have you had difficulty with anesthesia previously re: ? Difficult intubation? No ? Other difficulty or allergic reaction to anesthesia other than post op N/V? No 8. Do you currently use oxygen or a breathing machine at night? No 9. Do you take any narcotics, depression or anti-Anxiety medications or 3 or more prescription drugs on a daily basis? Yes / 10. Do you use any illegal or recreational drugs? No 11. Have you been hospitalized in the past 6 weeks? No 12. Are you on dialysis or have Chronic Kidney Disease? No 13. Have you been diagnosed with chronic liver disease such as hepatitis or cirrhosis? No 14. Do you have a seizure disorder? No 15. Do you have difficulty swallowing? No 16. Do you have ulcerative colitis or Crohn's disease? No 17. Do you take any Blood thinners, including Aspirin or fish oil? No 18. Do you have any blood disorders (re:hemophiliac)? No 19. Are you Diabetic? No 20. Any other important health information we should be made aware of prior to your colonoscopy? No 21. Any alcohol use: No. To be completed by LIP: Patient appropriate for Open Access Colonoscopy: Yes: appropriate for Open Access Procedure Checklist: Prior to closing the encounter: ? Complete questionnaire: Yes ? Confirm Prep order has been Ordered/Pended: Yes. ? Patient's procedure could be delayed if not given the script for the prep. Please ensure the prep is escripted to pharmacy or printed. Instructions for the prep will print upon filing or pending this smartset. ? Please send all open access questionnaires to [facility] Sched [place] #[id number] Radha Hernandez 02/10/2018 10:29 AM Signed Health Information For Patients and the Community How to Prepare for Your Colonoscopy Using Golytely, Nulytely, Trilyte or Colyte Preparations IMPORTANT - Please Read These Instructions at Least 2 Weeks Before Your Colonoscopy Jenkins Instructions: ?Your bowel must be empty so that your doctor can clearly view your colon. Follow all of the instructions in this handout EXACTLY as they are written. If you do NOT follow the directions for when to start drinking the bowel preparation (see next page), your colonoscopy WILL be cancelled. ?Do NOT eat any solid food the ENTIRE day before your colonoscopy. ?Buy your bowel preparation at least 5 days before your colonoscopy. ?Do NOT mix the solution until the day before your colonoscopy. Designated Poultry Inseminator on the Day of Your Exam A responsible family member or friend MUST come with you to your colonoscopy and REMAIN in the endoscopy area until you are discharged! You are NOT ALLOWED to drive, take a taxi or bus, or leave the Endoscopy Center ALONE. If you do not have a responsible medical delivery driver (family member or friend) with you to take you home, your exam cannot be done with sedation and will be cancelled. Medications Some of the medicines you take may need to be stopped or adjusted before your colonoscopy. You MUST call the doctor who ordered any of the following medicines at least 2 weeks before your colonoscopy. ?Blood thinners -- such as Coumadin? (warfarin), Plavix? (clopidogrel), Ticlid? (ticlopidine hydrochloride), Agrylin? (anagrelide), Xarelto? (Rivaroxaban), Pradaxa? (Dabigatran), Eliquis? (Apixaban), and Effient? (Prasugrel). ?Insulin or diabetes pills. Please call the doctor that monitors your glucose levels. Your insulin dosage may need to be adjusted due to the diet restrictions required with this bowel preparation. (Please bring your diabetes medicines with you on the day of your procedure.) If you take aspirin, take it and ALL other medications prescribed by your doctor. On the day of your colonoscopy, take your medications with a sip of water. Revised 04/2016 1 Five (5) Days Before Your Colonoscopy ?Do NOT take medicines that stop diarrhea -- such as Imodium?, Kaopectate?, or Pepto Bismol?. ?Do NOT take fiber supplements -- such as Metamucil?, Citrucel?, or Perdiem?. ?Do NOT take products that contain iron -- such as multi-vitamins -- (the label lists what is in the products). ?Do NOT take vitamin E. Buy the prescription bowel preparation solution at your local pharmacy or drugstore pharmacy. Three (3) Days Before Your Colonoscopy Do NOT eat high-fiber foods -- such as popcorn, beans, seeds (flax, sunflower, quinoa), multigrain bread, nuts, salad/vegetables, or fresh and dried fruit. One (1) Day Before Your Colonoscopy Only drink clear liquids the ENTIRE DAY before your colonoscopy. Do NOT eat any solid foods. Drink at least 8 ounces of clear liquids every hour after waking up. The clear liquids you can drink include: ?water, apple, or white grape juice; broth; coffee or tea (without milk or creamer); clear carbonated beverages such as nilson maureen or lemon-nottawaseppi potawatomi soda; Gatorade? or other sports drinks (not red); Jagdeep-Aid? or other flavored drinks (not red). You may eat plain jello or other gelatins (not red) or popsicles (not red). Do NOT drink alcohol on the day before or the day of the procedure. 2 Revised 04/2016 When to Mix and Drink Your Bowel Prep Follow the instructions on the label. After mixing, place the solution in the refrigerator for a couple of hours before drinking. You may add the flavor packet that came with the bowel preparation. DO NOT add ice, sugar or any flavorings to the solution. Evening Before Your Colonoscopy ?Start drinking the bowel preparation at 6 PM the evening before your colonoscopy. Drink an 8-oz glass of bowel preparation every 10 minutes. You must finish drinking the solution by 9 PM the night before your scheduled procedure. ?You may continue to drink clear liquids only until midnight. Do NOT eat or drink ANYTHING after midnight the night before your procedure or your procedure may be cancelled. This is for your safety and will reduce the risk of having any food or liquid in your stomach move into your lungs (aspiration) during a procedure. If you take aspirin, take it and ALL other prescribed medicines with a sip of water on the day of your colonoscopy. Contact Information: If you are unable to keep your appointment or have any questions about the instructions, please call the facility where the procedure is being performed. Call between the hours of 8:00 AM and 5:00 PM. If you are calling after 5:00 PM, please call Nurse geographic information systems engineer at [phone]. [facility] [address] [address] Index # [id number] Revised 04/2016 3 Colonoscopy Procedure Overview Please Read Prior to the Procedure What is a Colonoscopy A colonoscopy is an outpatient procedure in which the inside of the large intestine (colon and rectum) is examined. A colonoscopy is commonly used to evaluate gastrointestinal symptoms, such as rectal and intestinal bleeding, abdominal pain, or changes in bowel habits. Colonoscopies are also performed in individuals without symptoms to check for colorectal polyps or cancer. A screening colonoscopy is recommended for anyone 50 years of age and older, and for anyone with parents, siblings or children with a history of colorectal cancer or polyps. What Happens Before a Colonoscopy To have a successful colonoscopy, your bowel must be empty so that your physician can clearly view the colon. To do this, it is very important to read and follow all of the instructions given to you at least 2 weeks BEFORE your exam. If your bowel is not empty, your colonoscopy will not be successful and may have to be repeated. If you feel nauseated or vomit while taking the bowel preparation, wait 30 minutes before drinking more fluid and start with small sips of solution. Some activity (such as walking) or a few soda crackers may help decrease the nausea you are feeling. If the nausea persists, please contact nurse instructional technology specialist at [phone]. You may experience skin irritation around the anus due to the passage of liquid stools. To prevent and treat skin irritation, you should: ?Apply Vaseline? or Desitin? ointment to the skin around the anus before drinking the bowel preparation medications. These products can be purchased at any drugstore. ?Wipe the skin after each bowel movement with disposable wet wipes instead of toilet paper. These are found in the toilet paper area of the store. ?Sit in a bathtub filled with warm water for 10 to 15 minutes after you finish passing a stool; after soaking, blot the skin dry with a soft cloth, apply Vaseline? or Desitin? ointment to the anal area, and place a cotton ball just outside your anus to absorb leaking fluid. What Happens During a Colonoscopy During a colonoscopy, an experienced physician uses a colonoscope (a long, flexible instrument about 1/2 inch in diameter) to view the lining of the colon. The colonoscope is inserted into the rectum and advanced through the large intestine. If necessary during a colonoscopy, small amounts of tissue can be removed for analysis (a biopsy) and polyps can be identified and entirely removed. In many cases, a colonoscopy allows accurate diagnosis and treatment of colorectal problems without the need for a major operation. Revised 04/2016 5 ?You are asked to wear a hospital gown and an IV will be started. ?You are given a pain reliever and a sedative intravenously (in your vein). You will feel relaxed and somewhat drowsy. ?You will lie on your left side, with your knees drawn up towards your chest. ?A small amount of air is used to expand the colon so the physician can see the colon nesbitt. ?You may feel mild cramping during the procedure. Cramping can be reduced by taking slow, deep breaths. ?The colonoscope is slowly withdrawn while the lining of your bowel is carefully examined. ?The procedure lasts from 30 minutes to 1 hour. What Happens After a Colonoscopy ?You will stay in a recovery room for observation until you are ready for discharge. ?You may feel some cramping or a sensation of having gas, but this quickly passes. ?If sedation has been given, a responsible family member or friend must drive you home. ?Avoid alcohol, driving, and operating machinery for 24 hours following the procedure. ?Unless otherwise instructed, you may immediately return to your normal diet. We recommend you wait until the day after your procedure to resume normal activities. ?If polyps were removed or a biopsy was taken, the physician performing your colonoscopy will tell you when it is safe to resume taking your blood thinners. ?If a biopsy was taken or a polyp was removed, you may notice a little amount of rectal bleeding for 1 to 2 days after the procedure. If you have a large amount of rectal bleeding, high or persistent fevers, or severe abdominal pain within the next 2 weeks, please go to your local emergency room and call the physician who performed your exam. 6 Revised 04/2016 ?Copyright 9146-5594 [facility]. All rights reserved. Revised 04/2016 Pearl Singh RN, RN 02/11/2018 9:44 AM Signed Please rosalba orders as patient would like to picker / packer prep. Thank you, Pearl Singh RN Normal [facility] CALCIFEDIOL ([id number])on 2017 25-Hydroxyvitamin D2+25-Hydroxyvitamin D3 mass conc 50.4 ng/mL Normal 30.0-100.0 [facility] Work Phone: Comment on above: Vitamin D deficiency has been defined by the [place] ofMedicine and an Endocrine Society practice guideline as alevel of serum 25-OH vitamin D less than 20 ng/mL (1,2).The Endocrine Society went on to further define vitamin Dinsufficiency as a level between 21 and 29 ng/mL (2).1. IOM ([place] of Medicine). 2010. Dietary reference intakes for calcium and D. [place]: The National Academies Press.2. Hansa MF, Hannah [place], Azucena WILCOX, et al. Evaluation, treatment, and prevention of vitamin D deficiency: an Endocrine Society clinical practice guideline. JCEM. 2010; 96(7):1911-30. PATIENT WAS FASTINGP ERFORMED BY: xAd [facility] & Jony70 [employer] WorksAtrium Health W[facility]haw [id number] CBC, Platelets & Auto Diff ( [id number])on 12-03-2017 Basophils #/vol (Bld) 0.1 {x10E3/uL} Normal 0.0-0.2 [facility] Work Phone: Comment on above: PATIENT WAS FASTINGP ERFORMED BY: xAd [facility] Vyhagv5890 [facility] [id number] Basophils Auto #/vol (Bld) 0.1 {x10E3/uL} Normal 0.0-0.2 [facility] Work Phone: Basophils/100 WBC (Bld) 2 % Normal [facility] Work Phone: Comment on above: PATIENT WAS FASTINGP ERFORMED BY: ARELIS [facility] WinWruesm9435 [facility] [id number] Basophils/100 WBC Auto (Bld) 2 % Normal [facility] Work Phone: Eosinophils #/vol (Bld) 0.1 {x10E3/uL} Normal 0.0-0.4 [facility] Work Phone: Comment on above: PATIENT WAS FASTINGP ERFORMED BY: ARELIS [facility] WinXpijxh8246 [facility] [id number] Eosinophils Auto #/vol (Bld) 0.1 {x10E3/uL} Normal 0.0-0.4 [facility] Work Phone: Eosinophils/100 WBC (Bld) 3 % Normal [facility] Work Phone: Comment on above: PATIENT WAS FASTINGP ERFORMED BY: ARELIS [facility] Hzwyox6080 [facility] [id number] Eosinophils/100 WBC Auto (Bld) 3 % Normal [facility] Work Phone: Erythrocyte distribution width Auto Ratio (RBC) 13.8 % Normal 12.3-15.4 [facility] Work Phone: Erythrocyte distribution width Ratio (RBC) 13.8 % Normal 12.3-15.4 [facility] Work Phone: Comment on above: PATIENT WAS FASTINGP ERFORMED BY: [place] [id number] [facility] [id number] Hematocrit Auto Volume Fraction (Bld) 38.7 % Normal 34.0-46.6 [facility] Work Phone: Hematocrit Volume Fraction (Bld) 38.7 % Normal 34.0-46.6 [facility] Work Phone: Comment on above: PATIENT WAS FASTINGP ERFORMED BY: [facility]6370 [facility] [id number] Hemoglobin mass conc (Bld) 13.0 g/dL Normal 11.1-15.9 [facility] Work Phone: Comment on above: PATIENT WAS FASTINGP ERFORMED BY: [facility]6370 [facility] [id number] Immature granulocytes #/vol (Bld) 0.0 {x10E3/uL} Normal 0.0-0.1 [facility] Work Phone: Comment on above: PATIENT WAS FASTINGP ERFORMED BY: [place] [id number] [facility] [id number] Immature granulocytes/100 WBC (Bld) 0 % Normal [facility] Work Phone: Comment on above: PATIENT WAS FASTINGP ERFORMED BY: [place] [id number] [facility] [id number] Lymphocytes #/vol (Bld) 1.4 {x10E3/uL} Normal 0.7-3.1 [facility] Work Phone: Comment on above: PATIENT WAS FASTINGP ERFORMED BY: [place] [id number] [facility] [id number] Lymphocytes Auto #/vol (Bld) 1.4 {x10E3/uL} Normal 0.7-3.1 [facility] Work Phone: Lymphocytes/100 WBC (Bld) 38 % Normal [facility] Work Phone: Comment on above: PATIENT WAS FASTINGP ERFORMED BY: [place] [id number] [facility] [id number] Lymphocytes/100 WBC Auto (Bld) 38 % Normal [facility] Work Phone: MCH Auto Entitic mass (RBC) 27.1 pg Normal 26.6-33.0 [facility] Work Phone: MCH Entitic mass (RBC) 27.1 pg Normal 26.6-33.0 [facility] Internal [facility] Work Phone: Comment on above: PATIENT WAS FASTINGP ERFORMED BY: ARELIS [facility] Imfjxo2392 [facility] [id number] MCHC Auto mass conc (RBC) 33.6 g/dL Normal 31.5-35.7 [facility] Work Phone: MCHC mass conc (RBC) 33.6 g/dL Normal 31.5-35.7 Comp rehensive Internal Medicine Work Phone: Comment on above: PATIENT WAS FASTINGP ERFORMED BY: ARELIS [facility] Isxxmb7480 [facility] [id number] MCV Auto Entitic volume (RBC) 81 fL Normal 79-97 [facility] Work Phone: MCV Entitic volume (RBC) 81 fL Normal 79-97 [facility] Work Phone: Comment on above: PATIENT WAS FASTINGP ERFORMED BY: ARELIS [facility] Sbilro5966 [facility] [id number] Monocytes #/vol (Bld) 0.4 {x10E3/uL} Normal 0.1-0.9 [facility] Work Phone: Comment on above: PATIENT WAS FASTINGP ERFORMED BY: ARELIS [facility] Kkzths2480 [facility] [id number] Monocytes Auto #/vol (Bld) 0.4 {x10E3/uL} Normal 0.1-0.9 [facility] Work Phone: Monocytes/100 WBC (Bld) 10 % Normal [facility] Work Phone: Comment on above: PATIENT WAS FASTINGP ERFORMED BY: [facility]6370 [facility] [id number] Monocytes/100 WBC Auto (Bld) 10 % Normal [facility] Work Phone: Neutrophils #/vol (Bld) 1.8 {x10E3/uL} Normal 1.4-7.0 [facility] Work Phone: Comment on above: PATIENT WAS FASTINGP ERFORMED BY: ARELIS [facility]6370 [facility] [id number] Neutrophils Auto #/vol (Bld) 1.8 {x10E3/uL} Normal 1.4-7.0 [facility] Work Phone: Neutrophils/100 WBC (Bld) 47 % Normal [facility] Work Phone: Comment on above: PATIENT WAS FASTINGP ERFORMED BY: [place] [id number] [facility] [id number] Neutrophils/100 WBC Auto (Bld) 47 % Normal [facility] Work Phone: Platelets #/vol (Bld) 249 {x10E3/uL} Normal 150-379 [facility] Work Phone: Comment on above: PATIENT WAS FASTINGP ERFORMED BY: [place] [id number] [facility] [id number] Platelets Auto #/vol (Bld) 249 {x10E3/uL} Normal 150-379 [facility] Work Phone: RBC #/vol (Bld) 4.79 {x10E6/uL} Normal 3.77-5.28 [facility] Internal Medicine Work Phone: Comment on above: PATIENT WAS FASTINGP ERFORMED BY: [facility]6370 [facility] [id number] RBC Auto #/vol (Bld) 4.79 {x10E6/uL} Normal 3.77-5.28 [facility] Work Phone: WBC #/vol (Bld) 3.8 {x10E3/uL} Normal 3.4-10.8 [facility] Internal Medicine Work Phone: Comment on above: PATIENT WAS FASTINGP ERFORMED BY: [place] [id number] [facility] [id number] WBC Auto #/vol (Bld) 3.8 {x10E3/uL} Normal 3.4-10.8 [facility] Work Phone: CBC, Platelets & Auto Diff ( [id number])Ordered By: Soils Engineer on 12-03-2017 Basophils (Bld) [#/Vol] 0.1 10*3/uL Normal 0.0-0.2 [facility]; [facility] Work Phone: Comment on above: PATIENT WAS FASTINGP ERFORMED BY: [facility] Pvyaus0523 [address] RoadDublin [place] [id number] Eosinophils (Bld) [#/Vol] 0.1 10*3/uL Normal 0.0-0.4 [facility]; [facility] Work Phone: Comment on above: PATIENT WAS FASTINGP ERFORMED BY: [facility] Sesfwc0133 [address] RoadDublin [place] [id number] Immature granulocytes (Bld) [#/Vol] 0.0 10*3/uL Normal 0.0-0.1 [facility]; [facility] Work Phone: Comment on above: PATIENT WAS FASTINGP ERFORMED BY: [facility] Yrqeti1657 [address] RoadDublin [place] [id number] Lymphocytes (Bld) [#/Vol] 1.4 10*3/uL Normal 0.7-3.1 [facility]; [facility] Work Phone: Comment on above: PATIENT WAS FASTINGP ERFORMED BY: [facility] Yphhnz6332 [address] RoadDublin [place] [id number] Monocytes (Bld) [#/Vol] 0.4 10*3/uL Normal 0.1-0.9 [facility]; [facility] Work Phone: Comment on above: PATIENT WAS FASTINGP ERFORMED BY: [facility] Hceoww8838 [address] RoadDublin [place] [id number] Neutrophils (Bld) [#/Vol] 1.8 10*3/uL Normal 1.4-7.0 [facility]; [facility] Work Phone: Comment on above: PATIENT WAS FASTINGP ERFORMED BY: [facility] Jzjpqv2129 [address] RoadDublin [place] [id number] Platelets (Bld) [#/Vol] 249 10*3/uL Normal 150-379 [facility]; [facility] Work Phone: Comment on above: PATIENT WAS FASTINGP ERFORMED BY: ARELIS Carrizales6370 [facility] [id number] RBC (Bld) [#/Vol] 4.79 10*6/uL Normal 3.77-5.28 [facility] Internal [facility]; [facility] Work Phone: Comment on above: PATIENT WAS FASTINGP ERFORMED BY: ARELIS Carrizales6370 [facility] [id number] WBC (Bld) [#/Vol] 3.8 10*3/uL Normal 3.4-10.8 [facility] Internal [facility]; [facility] Work Phone: Comment on above: PATIENT WAS FASTINGP ERFORMED BY: ARELIS Carrizales6370 [facility] [id number] MAGNESIUM ([id number])on 12-04-19 18 Magnesium mass conc 1.9 mg/dL Normal 1.6-2.3 [facility] Internal Medicine Work Phone: Comment on above: PATIENT WAS FASTINGP ERFORMED BY: ARELIS Carrizales6370 [facility] [id number] Metabolic Panel, Comprehensi ve ([id number])on 12-03-2017 Albumin mass conc 4.8 g/dL Normal 3.5-5.5 [facility] Work Phone: Comment on above: PATIENT WAS FASTINGP ERFORMED BY: ARELIS Carrizales6370 [facility] [id number] Albumin/Globulin mass ratio 2.4 {ratio} Abnormal 1.2-2.2 [facility] Internal Medicine Work Phone: Comment on above: PATIENT WAS FASTINGP ERFORMED BY: ARELIS Carrizales6370 [facility] [id number] ALP enzyme act/vol 111 [iU]/L Normal 39-117 [facility] Internal Medicine Work Phone: Comment on above: PATIENT WAS FASTINGP ERFORMED BY: CB [facility] Fdjigj4260 [address] RoadDublin [place] [id number] ALT enzyme act/vol 12 [iU]/L Normal 0-32 [facility] Internal Medicine Work Phone: Comment on above: PATIENT WAS FASTINGP ERFORMED BY: CB [facility] Lbnsrk9640 [address] RoadDublin [place] [id number] AST enzyme act/vol 18 [iU]/L Normal 0-40 [facility] Internal Medicine Work Phone: Comment on above: PATIENT WAS FASTINGP ERFORMED BY: CB [facility] Xtzqlr2021 [address] [place] [id number] Bilirubin mass conc 0.3 mg/dL Normal 0.0-1.2 [facility]pr [facility] Internal Medicine Work Phone: Comment on above: PATIENT WAS FASTINGP ERFORMED BY: [facility] Dtxgpt0997 [address] RoadDuin [place] [id number] Calcium mass conc 9.4 mg/dL Normal 8.7-10.2 [facility] Work Phone: Comment on above: PATIENT WAS FASTINGP ERFORMED BY: [facility] Gfahxt8928 [address] RoadDublin [place] [id number] Chloride molar conc 105 mmol/L Normal 96-106 [facility] Internal Medicine Work Phone: Comment on above: PATIENT WAS FASTINGP ERFORMED BY: [facility] Edpkpn6637 [address] RoadDuin [place] [id number] CO2 molar conc 20 mmol/L Normal 20-29 [facility] Work Phone: Comment on above: PATIENT WAS FASTINGP ERFORMED BY: [facility] Rrmtle2074 [address]Dublin [place] [id number] Creatinine mass conc 0.61 mg/dL Normal 0.57-1.00 [facility] Internal Medicine Work Phone: Comment on above: PATIENT WAS FASTINGP ERFORMED BY: [facility] Mkpmxv7969 [address] RoadDublin [place] [id number] GFR/1.73 sq M predicted among blacks CKD-EPI vol rate/area (S/P/Bld) 116 mL/min/1.73 Normal [facility] Work Phone: Comment on above: PATIENT WAS FASTINGP ERFORMED BY: ARELIS Winlin6370 [facility] [id number] GFR/1.73 sq M predicted among non-blacks CKD-EPI vol rate/area (S/P/Bld) 101 mL/min/1.73 Normal Comprehensiv e Internal Medicine Work Phone: Comment on above: PATIENT WAS FASTINGP ERFORMED BY: ARELIS Winlin6370 [facility] [id number] Globulin Calculated mass conc (S) 2.0 g/dL Normal 1.5-4.5 [facility] Work Phone: Globulin mass conc (S) 2.0 g/dL Normal 1.5-4.5 Co mprehensive [facility] Work Phone: Comment on above: PATIENT WAS FASTINGP ERFORMED BY: ARELIS Winlin6370 [facility] [id number] Glucose mass conc 87 mg/dL Normal 65-99 Compreh ensive Internal Medicine Work Phone: Comment on above: PATIENT WAS FASTINGP ERFORMED BY: ARELIS Winlin6370 [facility] [id number] Potassium molar conc 4.3 mmol/L Normal 3.5-5.2 Comp rehensive Internal Medicine Work Phone: Comment on above: PATIENT WAS FASTINGP ERFORMED BY: ARELIS Winlin6370 [facility] [id number] Protein mass conc 6.8 g/dL Normal 6.0-8.5 Compreh ensive Internal Medicine Work Phone: Comment on above: PATIENT WAS FASTINGP ERFORMED BY: ARELIS [place]6370 [facility] [id number] Sodium molar conc 143 mmol/L Normal 134-144 Compreh ensive Internal Medicine Work Phone: Comment on above: PATIENT WAS FASTINGP ERFORMED BY: ARELIS Carrizales6370 [address]bl[address] [place] [id number] Urea nitrogen mass conc 18 mg/dL Normal 6-24 [facility] Work Phone: Comment on above: PATIENT WAS FASTINGP ERFORMED BY: ARELIS Carrizales6370 [address]bl[address] [place] [id number] Urea nitrogen/Creatinine mass ratio 30 mg/mg Abnormal 9-23 [facility] Work Phone: Comment on above: PATIENT WAS FASTINGP ERFORMED BY: ARELIS Carrizales6370 [address]bl[address] [place] [id number] Metabolic Panel, Comprehensi ve ([id number])Ordered By: Soils Engineer on 12-03-2017 ALP [Catalytic activity/Vol] 111 U/L Normal 39-117 [facility]; [facility] Work Phone: Comment on above: PATIENT WAS FASTINGP ERFORMED BY: ARELIS Carrizales6370 [address]bl[address] [place] [id number] ALT [Catalytic activity/Vol] 12 U/L Normal 0-32 [facility]; [facility] Work Phone: Comment on above: PATIENT WAS FASTINGP ERFORMED BY: ARELIS Carrizales6[address] [place] [id number] AST [Catalytic activity/Vol] 18 U/L Normal 0-40 [facility]; [facility] Work Phone: Comment on above: PATIENT WAS FASTINGP ERFORMED BY: ARELIS Carrizales[address] [facility]bl[facility] [place] [id number] TSH (THYROID STIMULATING HOR NAYAN) ([id number])on 12-03-2017 Thyrotropin Qn 3.920 {uIU/mL} Normal 0.450-4.500 [facility] Internal Medicine Work Phone: Comment on above: PATIENT WAS FASTINGP ERFORMED BY: ARELIS Carrizales[address] [facility] [place] [id number] Vitamin D,25 Hydroxyon 09-30 Vitamin D 25-OH 54.2 ng/mL Normal 29.95-100.0 1 [facility] Work Phone: Comment on above: Vitamin D 25(OH) Sta tus Range Deficiency <20 ng/mL (50nmol/L) Insuffciency 20 - 30 ng/mL (50 - 75 nmol/L) Sufficiency 30 - 100 ng/mL (75 - 250 nmol/L) Toxicity >100 ng/mL (>250 nmol/L) Vitamin D,25 Hydroxy 54.2 ng/mL Normal 29.95-1 00.0 1 [facility] Work Phone: Comment on above: Vitamin D 25(OH) Sta tus Range Deficiency <20 ng/mL (50nmol/L) Insuffciency 20 - 30 ng/mL (50 - 75 nmol/L) Sufficiency 30 - 100 ng/mL (75 - 250 nmol/L) Toxicity >100 ng/mL (>250 nmol/L) [facility] Uwcxfjyqdg75[address] [place], [place], [id number] Blood Glucose , Office ([phone])Ordered By: Eduin Brown on 09-01-2017 Glucose Glucometer molar conc (BldC) 73 1 Normal [facility] Work Phone: HgA1C , Office ([id number])Ordere d By: Eduin Brown on 09-01-2017 Hemoglobin A1c/Hemoglobin.total mass fraction (Bld) 4.9 % Normal 4.6 - 7.1 Comprehensiv e Internal Medicine Work Phone: Vital Signs Date Time Vital Sign Value Performing Clinician Facility 06-22-2024 10:23-0400 Body height 170.[address] Vu Ramon DO Work Phone: [facility] 06-22-2024 10:23-0400 Body mass index (BMI) [Ratio] 28.8 kg/m2 Dr. Vu Ramon DO Work Phone: [facility] 06-22-2024 10:23-040 Body weight 83.[address] Vu Ramon DO Work Phone: [facility] 06-08-2024 15:35-0400 Body height 170.[address] Vu Ramon DO Work Phone: [facility] 06-08-2024 15:35-0400 Body mass index (BMI) [Ratio] 28.8 kg/m2 Dr. Vu Ramon DO Work Phone: [facility] 06-08-2024 15:35-0400 Body temperature 97.2 [degF] Dr. Vu Ramon DO Work Phone: [facility] 06-08-2024 15:35-0400 Body weight 83.[address] Vu Ramon DO Work Phone: [facility] 06-08-2024 15:35-0400 Diastolic blood pressure 72 mm[Hg] Dr. Vu Ramon DO Work Phone: [facility] 06-08-2024 15:35-0400 Heart rate 70 /min Dr. Vu Ramon DO Work Phone: [facility] 06-08-2024 15:35-0400 Respiratory rate 16 /min Dr. Vu Ramon DO Work Phone: [facility] 06-08-2024 15:35-0400 SaO2% (BldA) [Mass fraction] 97 % Dr. Vu Ramon DO Work Phone: [facility] 06-08-2024 15:35-0400 Systolic blood pressure 110 mm[Hg] Dr. Vu Ramon DO Work Phone: [facility] 10-01-2021 10:25-0400 Body height 170.18 cm Kalie Cortez LPN [facility]; [facility] Work Phone: 10-01-2021 10:25-0400 Body mass index (BMI) [Ratio] 28.82 kg/m2 Kalie Cortez LPN [facility]; [facility] Work Phone: 10-01-2021 10:25-0400 Body surface area Derived from formula 1.95 m2 Kalie Cortez LPN [facility]; [facility] Work Phone: 10-01-2021 10:25-0400 Body temperature 97.1 [degF] Kalie Slarb TREE PULLER [facility]; [facility] Work Phone: 10-01-2021 10:25-0400 Body weight 83.46 kg Kalie Tarunrb [employer] [facility]; [facility] Work Phone: 10-01-2021 10:25-0400 Diastolic blood pressure 80 mm[Hg] Kalie Slarb [employer]ER [facility]; [facility] Work Phone: Comment on above: Patient Position: Sitting; Cuff Location : Left Arm; Cuff Size: Standard 10-01-2021 10:25-0400 Heart rate 86 /min Kalie Slarb [employer] [facility]; [facility] Work Phone: Comment on above: Pattern: Regular 10-01-2021 10:25-0400 Respiratory rate 16 /min Kalie Tarunrb [employer]ER [facility]; [facility] Work Phone: Comment on above: Pattern: Unlabored 10-01-2021 10:25-0400 SaO2% (BldA) [Mass fraction] 98 % Kalie Slarb [employer]REE P[employer]ER [facility]; [facility] Work Phone: Comment on above: Room air 10-01-2021 10:25-0400 Systolic blood pressure 118 mm[Hg] Kalie Slarb [employer]REE P[employer]ER [facility]; [facility] Work Phone: Comment on above: Patient Position: Sitting; Cuff Location : Left Arm; Cuff Size: Standard 09-25-2021 14:33-0400 Body temperature 98.7 [degF] CLINIC MANAGER-C Jessica May CLINIC MANAGER Work Phone: [facility] Work Phone: 09-25-2021 14:33-0400 Diastolic blood pressure 77 mm[Hg] CLINIC MANAGER-C Jessica May CLINIC MANAGER Work Phone: [facility] Work Phone: 09-25-2021 14:33-0400 Heart rate 98 /min CLINIC MANAGER-C Jessica May CLINIC MANAGER Work Phone: [facility] Work Phone: 09-25-2021 14:33-0400 Respiratory rate 18 /min CLINIC MANAGER-C Jessica Ghosha CLINIC MANAGER Work Phone: [facility] Work Phone: 09-25-2021 14:33-0400 SaO2% (BldA) [Mass fraction] 94 % CLINIC MANAGER-C Jessica Ghosha CLINIC MANAGER Work Phone: [facility] Work Phone: 09-25-2021 14:33-0400 Systolic blood pressure 114 mm[Hg] CLINIC MANAGER-C Jessica Ghosha CLINIC MANAGER Work Phone: [facility] Work Phone: 09-25-2021 07:30-0400 Inhaled oxygen flow rate 2 L/min CLINIC MANAGER-C Jessica Ghosha CLINIC MANAGER Work Phone: [facility] Work Phone: 09-24-2021 21:51-0400 Body height 170.18 cm CLINIC MANAGER-C Jessica Ghosha CLINIC MANAGER Work Phone: [facility] Work Phone: 09-24-2021 21:51-0400 Body mass index (BMI) [Ratio] 28.5 kg/m2 CLINIC MANAGER-C Jessica Ghosha CLINIC MANAGER Work Phone: [facility] Work Phone: 09-24-2021 21:51-0400 Body weight 82.55 kg CLINIC MANAGER-C Jessica Ghosha CLINIC MANAGER Work Phone: [facility] Work Phone: 09-24-2021 19:49-0400 Diastolic blood pressure 77 mm[Hg] CLINIC MANAGER-C Jessica Ghosha CLINIC MANAGER Work Phone: [facility] Work Phone: 09-24-2021 19:49-0400 Heart rate 76 /min CLINIC MANAGER-C Jessica Ghosha CLINIC MANAGER Work Phone: [facility] Work Phone: 09-24-2021 19:49-0400 Respiratory rate 20 /min CLINIC MANAGER-C Jessica May CLINIC MANAGER Work Phone: [facility] Work Phone: 09-24-2021 19:49-0400 SaO2% (BldA) [Mass fraction] 97 % CLINIC MANAGER-C Jessica May CLINIC MANAGER Work Phone: [facility] Work Phone: 09-24-2021 19:49-0400 Systolic blood pressure 140 mm[Hg] CLINIC MANAGER-C Jessica May CLINIC MANAGER Work Phone: [facility] Work Phone: 09-24-2021 15:23-0400 Body height 170.18 cm CLINIC MANAGER-C Jessica May CLINIC MANAGER Work Phone: [facility] Work Phone: 09-24-2021 15:23-0400 Body mass index (BMI) [Ratio] 30 kg/m2 CLINIC MANAGER-C Jessica May CLINIC MANAGER Work Phone: [facility] Work Phone: 09-24-2021 15:23-0400 Body temperature 98.2 [degF] CLINIC MANAGER-C Jessica May CLINIC MANAGER Work Phone: [facility] Work Phone: 09-24-2021 15:23-0400 Body weight 87.08 kg CLINIC MANAGER-C Jessica May CLINIC MANAGER Work Phone: [facility] Work Phone: 08-09-2021 18:33-0400 Diastolic blood pressure 78 mm[Hg] [facility] Work Phone: 08-09-2021 18:33-0400 Heart rate 87 /min [facility] Work Phone: 08-09-2021 18:33-0400 Respiratory rate 16 /min [facility] Work Phone: 08-09-2021 18:33-0400 SaO2% (BldA) [Mass fraction] 99 % [facility] Work Phone: 08-09-2021 18:33-0400 Systolic blood pressure 126 mm[Hg] [facility] Work Phone: 08-09-2021 15:09-0400 Body height 170.18 cm [facility] Work Phone: 08-09-2021 15:09-0400 Body mass index (BMI) [Ratio] 30.9 kg/m2 [facility] Work Phone: 08-09-2021 15:09-0400 Body temperature 98.2 [degF] [facility] Work Phone: 08-09-2021 15:09-0400 Body weight 89.5 kg [facility] Work Phone: 02-27-2021 10:17-0500 Body height 170.18 cm [facility] Work Phone: Comment on above: virtual, none reported 02-27-2021 10:17-0500 Body mass index (BMI) [Ratio] 30.07 kg/m2 [facility] Work Phone: Comment on above: virtual, none reported 02-27-2021 10:17-0500 Body surface area Derived from formula 1.99 m2 [facility]; [facility] Work Phone: Comment on above: virtual, none reported 02-27-2021 10:17-0500 Body weight 87.09 kg Radha Jorge L LPN [facility]; [facility] Work Phone: Comment on above: virtual, none reported 02-20-2021 08:12-0500 Body height 170.18 cm Radha Jorge L LPN [facility]; [facility] Work Phone: 02-20-2021 08:12-0500 Body mass index (BMI) [Ratio] 30.07 kg/m2 Radha Jorge L [employer] [facility] Work Phone: 02-20-2021 08:12-0500 Body surface area Derived from formula 1.99 m2 Radha Coats ANJANA [facility]; [facility] Work Phone: 02-20-2021 08:12-0500 Body temperature 97.6 [degF] Radha Coats ANJANA [facility]; [facility] Work Phone: Comment on above: Method: Temporal 02-20-2021 08:12-0500 Body weight 87.09 kg Radha Coats ANJANA [facility]; [facility] Work Phone: 02-20-2021 08:12-0500 Diastolic blood pressure 82 mm[Hg] Radha Coats ANJANA [facility]; [facility] Work Phone: Comment on above: Patient Position: Sitting; Cuff Location : Left Arm; Cuff Size: Standard 02-20-2021 08:12-0500 Heart rate 120 /min Radhacristina Coats ANJANA [facility]; [facility] Work Phone: Comment on above: Pattern: Regular 02-20-2021 08:12-0500 Respiratory rate 16 /min Radha Coats ANJANA [facility]; [facility] Work Phone: Comment on above: Pattern: Unlabored 02-20-2021 08:12-0500 SaO2% (BldA) [Mass fraction] 97 % Radhacristina Velasquezalberto YEUNG [facility]; [facility] Work Phone: Comment on above: Room air 02-20-2021 08:12-0500 Systolic blood pressure 102 mm[Hg] Radhacristina Coats ANJANA [facility]; [facility] Work Phone: Comment on above: Patient Position: Sitting; Cuff Location : Left Arm; Cuff Size: Standard 08-25-2020 09:24-0400 Body height 170.18 cm Eduin Campoverde LPN [facility]; [facility] Work Phone: 08-25-2020 09:24-0400 Body mass index (BMI) [Ratio] 29.76 kg/m2 Eduin Campoverde LPN [facility]; [facility] Work Phone: 08-25-2020 09:24-0400 Body surface area Derived from formula 1.98 m2 Eduin Campoverde LPN [facility]; [facility] Work Phone: 08-25-2020 09:24-0400 Body temperature 97.1 [degF] Eduin Campoverde LPN [facility]; [facility] Work Phone: Comment on above: Method: Infrared 08-25-2020 09:24-0400 Body weight 86.18 kg Eduin Campoverde LPN [facility]; [facility] Work Phone: 08-25-2020 09:24-0400 Diastolic blood pressure 78 mm[Hg] Eduin Campoverde LPN [facility]; [facility] Work Phone: Comment on above: Patient Position: Sitting; Cuff Location : Left Arm; Cuff Size: Standard 08-25-2020 09:24-0400 Heart rate 113 /min Eduin Campoverde LPN [facility]; [facility] Work Phone: Comment on above: Pattern: Regular 08-25-2020 09:24-0400 Respiratory rate 16 /min Eduin Campoverde LPN [facility]; [facility] Work Phone: Comment on above: Pattern: Unlabored 08-25-2020 09:24-0400 SaO2% (BldA) [Mass fraction] 97 % Eduin Campoverde LPN [facility]; [facility] Work Phone: Comment on above: Room air 08-25-2020 09:24-0400 Systolic blood pressure 124 mm[Hg] Eduin Campoverde LPN [facility]; [facility] Work Phone: Comment on above: Patient Position: Sitting; Cuff Location : Left Arm; Cuff Size: Standard 08-16-2020 09:08-0400 Body height 170.18 cm Eduin Campoverde LPN [facility]; [facility] Work Phone: 08-16-2020 09:08-0400 Body mass index (BMI) [Ratio] 29.76 kg/m2 Eduin Campoverde LPN [facility]; [facility] Work Phone: 08-16-2020 09:08-0400 Body surface area Derived from formula 1.98 m2 Eduin Campoverde LPN [facility]; [facility] Work Phone: 08-16-2020 09:08-0400 Body temperature 97.1 [degF] Eduin Campoverde LPN [facility]; [facility] Work Phone: Comment on above: Method: Infrared 08-16-2020 09:08-0400 Body weight 86.18 kg Eduin Campoverde LPN [facility]; [facility] Work Phone: 08-16-2020 09:08-0400 Diastolic blood pressure 78 mm[Hg] Eduin Campoverde LPN [facility]; [facility] Work Phone: Comment on above: Patient Position: Sitting; Cuff Location : Left Arm; Cuff Size: Standard 08-16-2020 09:08-0400 Heart rate 103 /min Eduin Campoverde LPN [facility]; [facility] Work Phone: Comment on above: Pattern: Regular 08-16-2020 09:08-0400 Respiratory rate 16 /min Eduin Campoverde LPN [facility]; [facility] Work Phone: Comment on above: Pattern: Unlabored 08-16-2020 09:08-0400 SaO2% (BldA) [Mass fraction] 95 % Eduin Campoverde LPN [facility]; [facility] Work Phone: Comment on above: Room air 08-16-2020 09:08-0400 Systolic blood pressure 138 mm[Hg] Eduin Campoverde LPN [facility]; [facility] Work Phone: Comment on above: Patient Position: Sitting; Cuff Location : Left Arm; Cuff Size: Standard 07-31-2020 11:58-0400 Body height 170.18 cm Eduin Campoverde LPN [facility]; [facility] Work Phone: 07-31-2020 11:58-0400 Body mass index (BMI) [Ratio] 30.55 kg/m2 Eduin Campoverde LPN [facility]; [facility] Work Phone: 07-31-2020 11:58-0400 Body mass index (BMI) [Ratio] 29.76 kg/m2 Eduin Campoverde LPN [facility]; [facility] Work Phone: 07-31-2020 11:58-0400 Body surface area Derived from formula 2 m2 Eduin Campoverde LPN [facility]; [facility] Work Phone: 07-31-2020 11:58-0400 Body surface area Derived from formula 1.98 m2 Eduin Campoverde LPN [facility]; [facility] Work Phone: 07-31-2020 11:58-0400 Body temperature 97.1 [degF] Eduin Campoverde LPN [facility]; [facility] Work Phone: Comment on above: Method: Infrared 07-31-2020 11:58-0400 Body weight 88.47 kg Eduin Campoverde LPN [facility]; [facility] Work Phone: 07-31-2020 11:58-0400 Body weight 86.18 kg Eduin Campoverde LPN [facility]; [facility] Work Phone: 07-31-2020 11:58-0400 Diastolic blood pressure 78 mm[Hg] Eduin Campoverde LPN [facility]; [facility] Work Phone: Comment on above: Patient Position: Sitting; Cuff Location : Left Arm; Cuff Size: Standard 07-31-2020 11:58-0400 Heart rate 102 /min Eduin Campoverde LPN [facility]; [facility] Work Phone: Comment on above: Pattern: Regular 07-31-2020 11:58-0400 Respiratory rate 16 /min Eduin Campoverde LPN [facility]; [facility] Work Phone: Comment on above: Pattern: Unlabored 07-31-2020 11:58-0400 SaO2% (BldA) [Mass fraction] 97 % Eduin Campoverde LPN [facility]; [facility] Work Phone: Comment on above: Room air 07-31-2020 11:58-0400 Systolic blood pressure 122 mm[Hg] Eduin Campoverde LPN [facility]; [facility] Work Phone: Comment on above: Patient Position: Sitting; Cuff Location : Left Arm; Cuff Size: Standard 01-17-2020 11:35-0500 BMI (Body Mass Index) 30.55 kg/m2 Eduin Campoverde LPN [facility] Work Phone: 01-17-2020 11:35-0500 Body Temperature 97.4 [degF] Eduin Campoverde LPN [facility] Work Phone: Comment on above: Method: Infrared 01-17-2020 11:35-0500 Body weight 88.47 kg Eduin Campoverde LPN [facility] Work Phone: 01-17-2020 11:35-0500 BP Diastolic 70 mm[Hg] Eduin Campoverde LPN [facility] Work Phone: Comment on above: Patient Position: Sitting; Cuff Location : Left Arm; Cuff Size: Standard 01-17-2020 11:35-0500 BP Systolic 110 mm[Hg] Eduin Campoverde LPN [facility] Work Phone: Comment on above: Patient Position: Sitting; Cuff Location : Left Arm; Cuff Size: Standard 01-17-2020 11:35-0500 BSA (Body Surface Area) 2 m2 Eduin Campoverde LPN [facility] Work Phone: 01-17-2020 11:35-0500 Height 170.18 cm Eduin Campoverde LPN [facility] Work Phone: 01-17-2020 11:35-0500 Pulse (Heart Rate) 97 /min Eduin Campoverde LPN [facility] Work Phone: Comment on above: Pattern: Regular 01-17-2020 11:35-0500 Pulse Oximetry 94 % Jessica May [facility] Work Phone: Comment on above: Room air 01-17-2020 11:35-0500 Respiratory Rate 16 /min Eduin Campoverde LPN [facility] Work Phone: Comment on above: Pattern: Unlabored 01-17-2020 11:35-0500 SaO2% (BldA) [Mass fraction] 94 % Eduin Campoverde LPN [facility]; [facility] Work Phone: Comment on above: Room air 09-29-2019 07:51-0400 BMI (Body Mass Index) 30.23 kg/m2 Jessica Ghoshcarolee [facility] Work Phone: 09-29-2019 07:51-0400 BMI (Body Mass Index) 29.91 kg/m2 Eduin Campoverde LPN [facility] Work Phone: 09-29-2019 07:51-0400 Body Temperature 97.1 [degF] Eduin Campoverde LPN [facility] Work Phone: Comment on above: Method: Thermal Scan 09-29-2019 07:51-0400 Body weight 87.56 kg Jessica Ghoshcarolee [facility] Work Phone: 09-29-2019 07:51-0400 Body weight 86.64 kg Eduin Campoverde LPN [facility] Work Phone: 09-29-2019 07:51-0400 BP Diastolic 62 mm[Hg] Eduin Campoverde LPN [facility] Work Phone: Comment on above: Patient Position: Sitting; Cuff Location : Left Arm; Cuff Size: Standard 09-29-2019 07:51-0400 BP Systolic 110 mm[Hg] Eduin Campoverde LPN [facility] Work Phone: Comment on above: Patient Position: Sitting; Cuff Location : Left Arm; Cuff Size: Standard 09-29-2019 07:51-0400 BSA (Body Surface Area) 1.99 m2 Jessica Solanojohn [facility] Work Phone: 09-29-2019 07:51-0400 BSA (Body Surface Area) 1.98 m2 Eduin Campoverde LPN [facility] Work Phone: 09-29-2019 07:51-0400 Height 170.18 cm Eduin Campoverde LPN [facility] Work Phone: 09-29-2019 07:51-0400 Pulse (Heart Rate) 90 /min Eduin Campoverde LPN [facility] Work Phone: Comment on above: Pattern: Regular 09-29-2019 07:51-0400 Pulse Oximetry 96 % Jessica Yadira [facility] Work Phone: Comment on above: Room air 09-29-2019 07:51-0400 Respiratory Rate 16 /min Eduin Campoverde LPN [facility] Work Phone: Comment on above: Pattern: Unlabored 09-29-2019 07:51-0400 SaO2% (BldA) [Mass fraction] 96 % Eduin Campoverde LPN [facility]; [facility] Work Phone: Comment on above: Room air 05-21-2019 07:52-0500 BMI (Body Mass Index) 30.23 kg/m2 Eduin Campoverde LPN [facility] Work Phone: 05-21-2019 07:52-0500 Body Temperature 97.9 [degF] Eduin Campoverde LPN [facility] Work Phone: Comment on above: Method: Temporal 05-21-2019 07:52-0500 Body weight 87.56 kg Eduin Campoverde LPN [facility] Work Phone: 05-21-2019 07:52-0500 BP Diastolic 72 mm[Hg] Eduin Campoverde LPN [facility] Work Phone: Comment on above: Patient Position: Sitting; Cuff Location : Left Arm; Cuff Size: Standard 05-21-2019 07:52-0500 BP Systolic 100 mm[Hg] Eduin Campoverde LPN [facility] Work Phone: Comment on above: Patient Position: Sitting; Cuff Location : Left Arm; Cuff Size: Standard 05-21-2019 07:52-0500 BSA (Body Surface Area) 1.99 m2 Eduin Campoverde LPN [facility] Work Phone: 05-21-2019 07:52-0500 Height 170.18 cm Eduin Campoverde LPN [facility] Work Phone: 05-21-2019 07:52-0500 Pulse (Heart Rate) 120 /min Eduin Campoverde LPN [facility] Work Phone: Comment on above: Pattern: Regular 05-21-2019 07:52-0500 Pulse Oximetry 97 % Jessica May [facility] Work Phone: Comment on above: Room air 05-21-2019 07:52-0500 Respiratory Rate 16 /min Eduin Campoverde LPN [facility] Work Phone: Comment on above: Pattern: Unlabored 05-21-2019 07:52-0500 SaO2% (BldA) [Mass fraction] 97 % Eduin Campoverde LPN [facility]; [facility] Work Phone: Comment on above: Room air 05-05-2019 11:08-0500 BMI (Body Mass Index) 29.76 kg/m2 Eduin Campoverde LPN [facility] Work Phone: 05-05-2019 11:08-0500 Body Temperature 97.9 [degF] Eduin Campoverde LPN [facility] Work Phone: Comment on above: Method: Temporal 05-05-2019 11:08-0500 Body weight 86.18 kg Eduin Campoverde LPN [facility] Work Phone: 05-05-2019 11:08-0500 BP Diastolic 60 mm[Hg] Eduin Campoverde LPN [facility] Work Phone: Comment on above: Patient Position: Sitting; Cuff Location : Left Arm; Cuff Size: Standard 05-05-2019 11:08-0500 BP Systolic 112 mm[Hg] Eduin Campoverde LPN [facility] Work Phone: Comment on above: Patient Position: Sitting; Cuff Location : Left Arm; Cuff Size: Standard 05-05-2019 11:08-0500 BSA (Body Surface Area) 1.98 m2 Eduin Campoverde LPN [facility] Work Phone: 05-05-2019 11:08-0500 Height 170.18 cm Eduin Campoverde LPN [facility] Work Phone: 05-05-2019 11:08-0500 Pulse (Heart Rate) 109 /min Eduin Campoverde LPN [facility] Work Phone: Comment on above: Pattern: Regular 05-05-2019 11:08-0500 Pulse Oximetry 96 % Jessica May [facility] Work Phone: Comment on above: Room air 05-05-2019 11:08-0500 Respiratory Rate 16 /min Eduin Campoverde LPN [facility] Work Phone: Comment on above: Pattern: Unlabored 05-05-2019 11:08-0500 SaO2% (BldA) [Mass fraction] 96 % Eduin Campoverde LPN [facility] Work Phone: Comment on above: Room air 11-27-2018 07:31-0400 BMI (Body Mass Index) 28.98 kg/m2 Eduin Campoverde LPN [facility] Work Phone: 11-27-2018 07:31-0400 BMI (Body Mass Index) 28.5 kg/m2 Jessica Yadira [facility] Work Phone: 11-27-2018 07:31-0400 Body Temperature 97 [degF] Eduin Campoverde LPN [facility] Work Phone: Comment on above: Method: Temporal 11-27-2018 07:31-0400 Body weight 83.94 kg Eduin Campoverde LPN [facility] Work Phone: 11-27-2018 07:31-0400 Body weight 82.56 kg Jessica Solanojohn [facility] Work Phone: 11-27-2018 07:31-0400 BP Diastolic 76 mm[Hg] Eduin Campoverde LPN [facility] Work Phone: Comment on above: Patient Position: Sitting; Cuff Location : Left Arm; Cuff Size: Standard 11-27-2018 07:31-0400 BP Systolic 122 mm[Hg] Eduin Campoverde LPN [facility] Work Phone: Comment on above: Patient Position: Sitting; Cuff Location : Left Arm; Cuff Size: Standard 11-27-2018 07:31-0400 BSA (Body Surface Area) 1.96 m2 Eduin Campoverde LPN [facility] Work Phone: 11-27-2018 07:31-0400 BSA (Body Surface Area) 1.94 m2 Jessica Yadira [facility] Work Phone: 11-27-2018 07:31-0400 Height 170.18 cm Eduin Campoverde LPN [facility] Work Phone: 11-27-2018 07:31-0400 Pulse (Heart Rate) 75 /min Eduin Campoverde LPN [facility] Work Phone: Comment on above: Pattern: Regular 11-27-2018 07:31-0400 Pulse Oximetry 93 % Jessica May [facility] Work Phone: Comment on above: Room air 11-27-2018 07:31-0400 Respiratory Rate 16 /min Eduin Campoverde LPN [facility] Work Phone: Comment on above: Pattern: Unlabored 11-27-2018 07:31-0400 SaO2% (BldA) [Mass fraction] 93 % Eduin Campoverde LPN [facility] Work Phone: Comment on above: Room air 10-20-2018 13:15-0400 BMI (Body Mass Index) 28.5 kg/m2 Kalie Slarb [employer] [facility] Work Phone: 10-20-2018 13:15-0400 Body Temperature 97.3 [degF] Kalie Slarb [employer] [facility] Work Phone: 10-20-2018 13:15-0400 Body weight 82.56 kg Kalie Slarb [employer] [facility] Work Phone: 10-20-2018 13:15-0400 BP Diastolic 78 mm[Hg] Kalie Slarb [employer] [facility] Work Phone: Comment on above: Patient Position: Sitting; Cuff Location : Left Arm; Cuff Size: Standard 10-20-2018 13:15-0400 BP Systolic 112 mm[Hg] Kalie Slarb [employer] [facility] Work Phone: Comment on above: Patient Position: Sitting; Cuff Location : Left Arm; Cuff Size: Standard 10-20-2018 13:15-0400 BSA (Body Surface Area) 1.94 m2 Kalie Slarb [employer] [facility] Work Phone: 10-20-2018 13:15-0400 Height 170.18 cm Kalie Slarb [employer] [facility] Work Phone: 10-20-2018 13:15-0400 Pulse (Heart Rate) 82 /min Kalie Cortez ANJANA [facility] Work Phone: Comment on above: Pattern: Regular 10-20-2018 13:15-0400 Pulse Oximetry 97 % Jessica May [facility] Work Phone: Comment on above: Room air 10-20-2018 13:15-0400 Respiratory Rate 17 /min Kalie Cortez ANJANA [facility] Work Phone: Comment on above: Pattern: Unlabored 10-20-2018 13:15-0400 SaO2% (BldA) [Mass fraction] 97 % Kalie Cortez [employer] [facility] Work Phone: Comment on above: Room air 09-14-2018 11:11-0400 BMI (Body Mass Index) 27.25 kg/m2 [employer] [facility] Work Phone: 09-14-2018 11:11-0400 Body weight 78.93 kg [employer] [facility] Work Phone: 09-14-2018 11:11-0400 BP Diastolic 76 mm[Hg] [employer] [facility] Work Phone: Comment on above: Patient Position: Sitting; Cuff Location : Left Arm; Cuff Size: Standard 09-14-2018 11:11-0400 BP Systolic 118 mm[Hg] [employer] [facility] Internal Medicine Work Phone: Comment on above: Patient Position: Sitting; Cuff Location : Left Arm; Cuff Size: Standard 09-14-2018 11:11-0400 BSA (Body Surface Area) 1.91 m2 [employer] [facility] Internal Medicine Work Phone: 09-14-2018 11:11-0400 Height 170.18 cm [employer] [facility] Internal Medicine Work Phone: 09-14-2018 11:11-0400 Pulse (Heart Rate) 95 /min [employer] [facility] Internal Medicine Work Phone: Comment on above: Pattern: Regular 09-14-2018 11:11-0400 Pulse Oximetry 96 % Jessica May [facility] Internal Medicine Work Phone: Comment on above: Room air 09-14-2018 11:11-0400 Respiratory Rate 20 /min Safia Hoffman [facility] Internal Medicine Work Phone: Comment on above: Pattern: Unlabored 09-14-2018 11:11-0400 SaO2% (BldA) [Mass fraction] 96 % Safia Hoffman [facility] Internal Medicine; [facility] Work Phone: Comment on above: Room air 07-13-2018 08:11-0400 BMI (Body Mass Index) 26.78 kg/m2 Eduin Campoverde LPN [facility] Work Phone: 07-13-2018 08:11-0400 Body Temperature 97.4 [degF] Eduin Campoverde LPN [facility] Internal Medicine Work Phone: Comment on above: Method: Temporal 07-13-2018 [id number]:110400 Body weight 77.57 kg Eduin Campoverde LPN [facility] Work Phone: 07-13-2018 08:11-0400 BP Diastolic 74 mm[Hg] Eduin Campoverde LPN [facility] Internal Medicine Work Phone: Comment on above: Patient Position: Sitting; Cuff Location : Left Arm; Cuff Size: Standard 07-13-2018 08:11-0400 BP Systolic 116 mm[Hg] Eduin Campoverde LPN [facility] Internal Medicine Work Phone: Comment on above: Patient Position: Sitting; Cuff Location : Left Arm; Cuff Size: Standard 07-13-2018 08:11-0400 BSA (Body Surface Area) 1.89 m2 Eduin Campoverde LPN [facility] Internal Medicine Work Phone: 07-13-2018 08:11-0400 Height 170.18 cm Eduin Campoverde LPN [facility] Work Phone: 07-13-2018 08:11-0400 Pulse (Heart Rate) 91 /min Eduin Campoverde LPN [facility] Work Phone: Comment on above: Pattern: Regular 07-13-2018 08:11-0400 Pulse Oximetry 97 % Jessica May [facility] Internal Medicine Work Phone: Comment on above: Room air 07-13-2018 08:11-0400 Respiratory Rate 16 /min Eduin Campoverde LPN [facility] Work Phone: Comment on above: Pattern: Unlabored 07-13-2018 08:11-0400 SaO2% (BldA) [Mass fraction] 97 % Eduin Campoverde LPN [facility] Internal Medicine; [facility] Work Phone: Comment on above: Room air 07-13-2018 08:11-0400 Weight 77.57 kg Jessica May [facility] Internal Medicine Work Phone: 06-09-2018 09:17-0400 BMI (Body Mass Index) 27 kg/m2 Jessica Solanocarrollcarolee [facility] Internal Medicine Work Phone: 06-09-2018 09:17-0400 BMI (Body Mass Index) 26.78 kg/m2 Eduin Campoverde LPN [facility] Internal Medicine Work Phone: 06-09-2018 09:17-0400 Body Temperature 97.5 [degF] Eduin Campoverde LPN [facility] Work Phone: Comment on above: Method: Temporal 06-09-2018 09:17-0400 Body weight 77.57 kg Eduin Campoverde LPN [facility] Work Phone: 06-09-2018 09:17-0400 BP Diastolic 78 mm[Hg] Eduin Campoverde LPN [facility] Internal Medicine Work Phone: Comment on above: Patient Position: Sitting; Cuff Location : Left Arm; Cuff Size: Standard 06-09-2018 09:17-0400 BP Systolic 118 mm[Hg] Eduin Campoverde LPN [facility] Work Phone: Comment on above: Patient Position: Sitting; Cuff Location : Left Arm; Cuff Size: Standard 06-09-2018 09:17-0400 BSA (Body Surface Area) 1.9 m2 Jessica Yadira [facility] Internal Medicine Work Phone: 06-09-2018 09:17-0400 BSA (Body Surface Area) 1.89 m2 Eduin Campoverde LPN [facility] Internal Medicine Work Phone: 06-09-2018 09:17-0400 Height 170.18 cm Eduin Campoverde LPN [facility] Work Phone: 06-09-2018 09:17-0400 Pulse (Heart Rate) 83 /min Eduin Campoverde LPN [facility] Work Phone: Comment on above: Pattern: Regular 06-09-2018 09:17-0400 Pulse Oximetry 95 % Jessica May [facility] Internal Medicine Work Phone: Comment on above: Room air 06-09-2018 09:17-0400 Respiratory Rate 16 /min Eduin Campoverde LPN [facility] Work Phone: Comment on above: Pattern: Unlabored 06-09-2018 09:17-0400 SaO2% (BldA) [Mass fraction] 95 % Eduin Campoverde LPN [facility] Internal Medicine; [facility] Work Phone: Comment on above: Room air 06-09-2018 09:17-0400 Weight 78.19 kg Jessica May [facility] Internal Medicine Work Phone: 06-09-2018 09:17-0400 Weight 77.57 kg Jessica May [facility] Internal Medicine Work Phone: 12-09-2017 08:57-0400 BMI (Body Mass Index) 27 kg/m2 Debra Jany [facility] Internal Medicine Work Phone: 12-09-2017 08:57-0400 Body Temperature 97.7 [degF] Debra Marslear [facility] Internal Medicine Work Phone: Comment on above: Method: Temporal 12-09-2017 08:57-0400 Body weight 78.19 kg Debra Carmichael [facility] Internal Medicine Work Phone: 12-09-2017 08:57-0400 BP Diastolic 84 mm[Hg] Debra Carmichael [facility] Internal Medicine Work Phone: Comment on above: Patient Position: Sitting; Cuff Location : Left Arm; Cuff Size: Standard 12-09-2017 08:57-0400 BP Systolic 122 mm[Hg] Debra Carmichael [facility] Internal Medicine Work Phone: Comment on above: Patient Position: Sitting; Cuff Location : Left Arm; Cuff Size: Standard 12-09-2017 08:57-0400 BSA (Body Surface Area) 1.9 m2 Debra Carmichael [facility] Internal Medicine Work Phone: 12-09-2017 08:57-0400 Height 170.18 cm Debra Carmichael [facility] Internal Medicine Work Phone: 12-09-2017 08:57-0400 Pulse (Heart Rate) 80 /min Debra Carmichael [facility] Internal Medicine Work Phone: Comment on above: Pattern: Regular 12-09-2017 08:57-0400 Pulse Oximetry 94 % Jessica May [facility] Internal Medicine Work Phone: Comment on above: Room air 12-09-2017 08:57-0400 Respiratory Rate 16 /min Debra Carmichael [facility] Internal Medicine Work Phone: Comment on above: Pattern: Unlabored 12-09-2017 08:57-0400 SaO2% (BldA) [Mass fraction] 94 % Debra Carmichael [facility] Internal Medicine; [facility] Work Phone: Comment on above: Room air 12-09-2017 08:57-0400 Weight 78.19 kg Jessica May [facility] Internal Medicine Work Phone: 09-30-2017 09:48-0400 BMI (Body Mass Index) 27.31 kg/m2 Eduin Campoverde LPN [facility] Work Phone: 09-30-2017 09:48-0400 Body Temperature 97.4 [degF] Eduin Campoverde LPN [facility] Work Phone: 09-30-2017 09:48-0400 Body weight 79.1 kg Eudin Campoverde LPN [facility] Work Phone: 09-30-2017 09:48-0400 BP Diastolic 84 mm[Hg] Eduin Campoverde [facility] Work Phone: Comment on above: Patient Position: Sitting; Cuff Location : Left Arm; Cuff Size: Standard 09-30-2017 09:48-0400 BP Systolic 134 mm[Hg] Eduin Campoverde LPN [facility] Work Phone: Comment on above: Patient Position: Sitting; Cuff Location : Left Arm; Cuff Size: Standard 09-30-2017 09:48-0400 BSA (Body Surface Area) 1.91 m2 Eduin Campoverde LPN [facility] Internal Medicine Work Phone: 09-30-2017 09:48-0400 Height 170.18 cm Eduin Campoverde LPN [facility] Internal Medicine Work Phone: 09-30-2017 09:48-0400 Pulse (Heart Rate) 77 /min Eduin Campoverde LPN [facility] Work Phone: Comment on above: Pattern: Regular 09-30-2017 09:48-0400 Pulse Oximetry 95 % Jessica Solanocarrollcarolee [facility] Internal Medicine Work Phone: Comment on above: Room air 09-30-2017 09:48-0400 Respiratory Rate 16 /min Eduin Campoverde LPN [facility] Internal Medicine Work Phone: Comment on above: Pattern: Unlabored 09-30-2017 09:48-0400 SaO2% (BldA) [Mass fraction] 95 % Eduin Campoverde LPN [facility] Internal Medicine; [facility] Work Phone: Comment on above: Room air 09-30-2017 09:48-0400 Weight 79.1 kg Jessica May [facility] Internal Medicine Work Phone: 09-01-2017 10:31-0400 BMI (Body Mass Index) 27.78 kg/m2 Eduin Campoverde LPN [facility] Internal Medicine Work Phone: 09-01-2017 10:31-0400 Body Temperature 98.5 [degF] Eduin Campoverde LPN [facility] Internal Medicine Work Phone: 09-01-2017 10:31-0400 Body weight 80.46 kg Eduin Campoverde LPN [facility] Internal Medicine Work Phone: 09-01-2017 10:31-0400 BP Diastolic 78 mm[Hg] Eduin Campoverde LPN [facility] Internal Medicine Work Phone: Comment on above: Patient Position: Sitting; Cuff Location : Left Arm; Cuff Size: Standard 09-01-2017 10:31-0400 BP Systolic 110 mm[Hg] Eduin Campoverde LPN [facility] Internal Medicine Work Phone: Comment on above: Patient Position: Sitting; Cuff Location : Left Arm; Cuff Size: Standard 09-01-2017 10:31-0400 BSA (Body Surface Area) 1.92 m2 Eduin Campoverde LPN [facility] Work Phone: 09-01-2017 10:31-0400 Height 170.18 cm Eduin Campoverde LPN [facility] Work Phone: 09-01-2017 10:31-0400 Pulse (Heart Rate) 81 /min Eduin Campoverde LPN [facility] Work Phone: Comment on above: Pattern: Regular 09-01-2017 10:31-0400 Pulse Oximetry 97 % Jessica Yadira [facility] Internal Medicine Work Phone: Comment on above: Room air 09-01-2017 10:31-0400 Respiratory Rate 18 /min Eduin Campoverde LPN [facility] Work Phone: Comment on above: Pattern: Unlabored 09-01-2017 10:31-0400 SaO2% (BldA) [Mass fraction] 97 % Eduin Campoverde LPN [facility]; [facility] Work Phone: Comment on above: Room air 09-01-2017 10:31-0400 Weight 80.46 kg Jessica May [facility] Internal Medicine Work Phone: Encounters Encounter Date Encounter Type Care Provider Facility Start: 08-27-2024 ambulatory Rodriguez Friend Facility :[facility] Start: 08-23-2024 ambulatory Eyad Calero ty:[facility] Start: 06-28-2024 End: 06-28-[address] Vu Ramon DO Work Phone: [facility] Work Phone: Start: 06-28-2024 End: 06-28-[address] Cale Cruz [facility], [facility] Work Phone: Start: 06-28-2024 End: 06-28-2024 ambulatory Cale Cruz Facility:[facility] Start: 06-22-2024 End: 06-22-[address] Cale Cruz MD -[facility] Work Phone: Start: 06-22-2024 End: 06-22-2024 ambulatory Cale Cruz Facility:[facility] Start: 06-17-2024 End: 06-17-2024 Patient encounter procedure Belinda JOSHI -[facility] Work Phone: Start: 06-17-2024 End: 06-17-2024 ambulatory Belinda Stockton Facility:[facility] Start: 06-09-2024 Non-patient / Non-visit Dr. Vu Roy -[facility] Work Phone: Start: 06-09-2024 ambulatory Vu Ramon Facilit y:[facility] Start: 06-08-2024 End: 06-08-[address] Vu Roy DO -[facility] Work Phone: Start: 06-08-2024 End: 06-08-[address] Vu Ramon DO Work Phone: [facility] Work Phone: Start: 06-08-2024 End: 06-08-2024 ambulatory Vu Ramon Facility:[facility] Start: 02-05-2024 ambulatory Vu Ramon Facilit y:[facility] Start: 02-03-2024 ambulatory Vu Ramon Facilit y:[facility] Start: 02-02-2024 ambulatory Vu Ramon Facilit y:[facility] Start: 02-02-2024 End: 02-02-2024 ambulatory Vu Ramon Facility:[facility] Start: 01-21-2024 End: 01-21-2024 ambulatory Vu Ramon Facility:[facility] Start: 12-18-2023 End: 12-18-2023 ambulatory Vu R Brown Facility:[facility] Start: 10-29-2023 End: 10-29-2023 ambulatory Vu R Brown Facility:[facility] Start: 10-29-2023 End: 10-29-2023 ambulatory Vu R Brown Facility:[facility] Start: 10-09-2023 End: 10-09-2023 ambulatory Vu R Imani Facility:[facility] Start: 09-25-2023 End: 09-25-2023 ambulatory Vu R Brown Facility:[facility] Start: 11-30-2021 ambulatory Janice Montes CNP [facility] Start: 11-14-2021 End: 11-14-2021 Annotation/Addendum Janice Simon SOUZA Work Phone: [facility] Start: 10-01-2021 End: 10-01-2021 Hospital discharge day management 30 min/< Janice Montes CNP Work Phone: [facility] Start: 09-24-2021 End: 09-25-2021 Evaluation and management of inpatient CLINIC MANAGER-C Jessica Yadira CLINIC MANAGER Work Phone: [facility]-Medical Surgical 3 Start: 09-24-2021 Non-patient / Non-visit CLINIC MANAGER-C Jessica Yadira CLINIC MANAGER Work Phone: [facility] [facility] Start: 08-09-2021 End: 08-09-2021 Emergency department patient visit [facility]-Emergency Department Start: 05-16-2021 End: 05-16-2021 Patient encounter procedure [facility], [facility] Start: 02-27-2021 End: 02-27-2021 Office outpatient visit 10 minutes Jessica Yadira SOUZA Work Phone: [facility] Start: 02-20-2021 End: 02-20-2021 Office outpatient visit 25 minutes Jessica Ghoshcarolee SOUZA Work Phone: [facility] Start: 09-04-2020 End: 09-04-2020 Annotation/Addendum Jessica Ghoshcarolee SOUZA Work Phone: [facility] Start: 09-01-2020 End: 09-01-2020 Annotation/Addendum Jessica May LIBBY Work Phone: [facility] Start: 08-25-2020 End: 08-25-2020 Office outpatient visit 15 minutes Jessica Augiecarolee SOUZA Work Phone: [facility] Start: 08-16-2020 End: 08-16-2020 Office outpatient visit 15 minutes Jessica May CNP Work Phone: [facility] Start: 08-16-2020 Review Jessica Ciesa [employer] Work Phone: [facility] Start: 08-02-2020 End: 08-02-2020 Annotation/Addendum Jessica May [employer] Work Phone: [facility] Start: 08-02-2020 End: 08-02-2020 Annotation/Addendum Jessica May [employer] Work Phone: [facility] Start: 07-31-2020 End: 07-31-2020 Office outpatient visit 25 minutes Jessica May [employer] Work Phone: [facility] Start: 07-31-2020 Review Jessica May [employer] Work Phone: [facility] Start: 07-20-2020 End: 07-20-2020 Office outpatient visit 5 minutes Jessica May [employer] Work Phone: [facility] Start: 07-18-2020 End: 07-18-2020 Annotation/Addendum Jessica May [employer] Work Phone: [facility] Start: 01-17-2020 End: 01-17-2020 Office outpatient visit 25 minutes Jessica May [facility] Start: 10-26-2019 End: 10-26-2019 Annotation/Addendum Jessica May [facility] Start: 09-29-2019 End: 09-29-2019 Office outpatient visit 25 minutes Jessica May [facility] Start: 09-29-2019 Review [facility] Start: 07-21-2019 End: 07-21-2019 Office outpatient visit 5 minutes Jessica May [facility] Start: 07-06-2019 End: 07-06-2019 Annotation/Addendum Jessica May [facility] Start: 05-21-2019 End: 05-21-2019 Office outpatient visit 25 minutes Jessica May [facility] Start: 05-12-2019 End: 05-12-2019 Annotation/Addendum Jessica May [facility] Start: 05-05-2019 End: 05-05-2019 Annotation/Addendum Jessica May [facility] Start: 05-05-2019 End: 05-05-2019 Office outpatient visit 25 minutes Jessica Ghoshcarolee [facility] Start: 12-02-2018 End: 12-02-2018 Annotation/Addendum Jessica May [facility] Start: 11-27-2018 End: 11-27-2018 Annotation/Addendum Jessica May [facility] Start: 11-27-2018 End: 11-27-2018 Office outpatient visit 25 minutes Jessica Wilkins Internal [facility] Start: 11-27-2018 Review Jessica Garcia [facility] Start: 10-20-2018 End: 10-27-2018 Phone Encounter Jessica May [facility] Start: 10-20-2018 Review Jessica Garcia [facility] Start: 10-20-2018 End: 10-20-2018 Office outpatient visit 25 minutes Jessica Wilkins Internal [facility] Start: 10-20-2018 Review Jessica Garcia [facility] Start: 09-14-2018 End: 09-14-2018 Office outpatient visit 25 minutes Jessica Wilkins [facility] Start: 07-13-2018 End: 07-13-2018 Office outpatient visit 25 minutes Jessica Wilkins [facility] Start: 06-09-2018 End: 06-09-2018 Office outpatient visit 25 minutes Jessica Wilkins Internal [facility] Start: 06-09-2018 Review Jessica Garcia shahe[facility] Start: 04-13-2018 End: 04-13-2018 Office outpatient visit 5 minutes Jessica Wilkins [facility] Start: 04-13-2018 Review Jessica Garcia [facility]he[facility] Start: 12-09-2017 End: 12-09-2017 Office outpatient visit 25 minutes Jessica Wilkins [facility] Start: 09-30-2017 End: 09-30-2017 Office outpatient visit 15 minutes Jessica Wilkins [facility] Start: 09-12-2017 End: 09-12-2017 Annotation/Addendum Jessica May [facility] Start: 09-01-2017 End: 09-01-2017 Office outpatient new 45 minutes Jessica Wilkins Internal [facility] Procedures Date Procedure Procedure Detail Performing Clinician Start: 06-28-[address] Candi Ramon DO Work Phone: Start: 09-24-2021 End: 09-24-2021 History and Physical Exam Comments: See Note; NOTES: [facility] Medical Records Department [address] [place] [address] History Physical Exam 09/24/212043 MR#: [id number] Acct: [id number] Name: PINA ORTEGA Rep #: [id number] : 1960 61 From: Sumit Chacon MD PCP: MADELYN Gilliam Status:REG ER Location: ED HPI - General General Date of Admission: 09/24/21 Date of Service: 09/24/21 Chief Complaint: dizziness HPI Narrative PINA ORTEGA, is a 61 F who presents to the emergency room with a chief complaint of dizziness. Onset of symptoms began approximately 3 weeks ago but have worsened today. Patient has significant past medical history of thyroid cancer status post left thyroidectomy in 2006 and has had been monitored since that time. She also has a history of COPD and sleep apnea for which she normally uses CPAP device however recently she stopped using this due to a recall on her machine. The patient denies chest pain, shortness of breath and/or fevers or chills. Laboratory studies and chest x-ray are unremarkable however when the patient stood up she became dizzy and lightheaded with positive orthostatic vital signs. Patient will be admitted for observation overnight for orthostatic hypotension. [facility] Medical History Adult BMI 30.0-30.9 kg/sq m Allergic rhinitis Anxiety and depression Back pain Compression fracture of L5 lumbar vertebra COPD (chronic obstructive pulmonary disease) Hyperlipidemia Hypothyroidism Obstructive sleep apnea Osteoarthritis Osteoporosis Personal history of nicotine dependence Shoulder pain Thyroid disease Vitamin D deficiency Home Medications albuterol sulfate 90 mcg/actuation aerosol inhaler 2 puff inhalation PRN PRN Sob /Or Wheezing 09/07/18 [History Last Taken 01/03/20] amitriptyline 25 mg tablet 50 mg PO QHS #60 tabs 09/09/18 [Rx Last Taken 01/02/20] fluticasone furoate 200 mcg-vilanterol 25 mcg/dose inhalation powder (Breo Ellipta) 1 inh inhalation DAILY 08/22/20 [History Last Taken Unknown] levothyroxine 75 mcg tablet 75 mcg PO DAILY 08/22/20 [History Last Taken Unknown] paroxetine HCl 30 mg tablet (Paxil) 30 mg PO DAILY 08/22/20 [History Last Taken Unknown] denosumab 60 mg/mL subcutaneous syringe 60 mg subcut [id number] 08/30/20 [History Last Taken Unknown] meloxicam 7.5 mg tablet (Mobic) 7.5 mg PO DAILY PRN Pain 08/30/20 [History Last Taken Unknown] rosuvastatin 5 mg tablet 5 mg PO DAILY 08/30/20 [History Last Taken Unknown] Allergy/AdvReac Type Severity Reaction Status Date / Time No Known Allergies Allergy Verified 08/30/20 09:27 Family History Mother Heart disease Surgical History H/O: hysterectomy History of thyroidectomy Social History Smoking Status: Former smoker quit date: 03/17/14 pack-years: 22 alcohol intake: never caffeine: Yes Type: coffee Number of servings: 3 ROS Constitutional Constitutional: Denies change in weight Eyes Eyes: Denies blurry vision ENT HEENT: Denies abnormal hearing Cardiovascular Cardiovascular: Denies chest pain Respiratory/Chest Respiratory/Chest: Denies cough Gastrointestinal Gastrointestinal: Denies abdominal pain Genitourinary Genitourinary: Denies hematuria Vital Signs Vital Signs Vital Signs: 09/24/21 15:23 09/24/21 15:54 09/24/21 15:55 Temperature 98.2 F Temperature Source Temporal Pulse Rate 110 H 96 Pulse Rate [Lying] Pulse Rate [Sitting (for 1 minute prior to obtaining)] Pulse Rate [Standing (for 1 minute prior to obtaining)] Respiratory Rate 17 16 Respiratory Effort Respiratory Depth Respiratory Pattern Blood Pressure 117/88 H 135/75 H Blood Pressure [Lying] Blood Pressure [Sitting (for 1 minute prior to obtaining)] Blood Pressure [Standing (for 1 minute prior to obtaining)] Blood Pressure Mean 97 95 Blood Pressure Mean [Lying] Blood Pressure Mean [Sitting (for 1 minute prior to obtaining)] Blood Pressure Mean [Standing (for 1 minute prior to obtaining)] Pulse Ox 95 95 94 Oxygen Delivery Method Room Air Room Air Room Air 09/24/21 15:56 09/24/21 16:40 09/24/21 17:27 Temperature Temperature Source Pulse Rate 91 Pulse Rate [Lying] 89 Pulse Rate [Sitting (for 1 minute prior to obtaining)] 105 H Pulse Rate [Standing (for 1 minute prior to obtaining)] 120 H Respiratory Rate 16 Respiratory Effort Normal Respiratory Depth Normal Respiratory Pattern Normal Blood Pressure 139/76 H Blood Pressure [Lying] 125/79 H Blood Pressure [Sitting (for 1 minute prior to obtaining)] 112/83 H Blood Pressure [Standing (for 1 minute prior to obtaining)] 82/70 L Blood Pressure Mean 97 Blood Pressure Mean [Lying] 94 Blood Pressure Mean [Sitting (for 1 minute prior to obtaining)] 92 Blood Pressure Mean [Standing (for 1 minute prior to obtaining)] 74 Pulse Ox 96 Oxygen Delivery Method Room Air Room Air 09/24/21 19:49 Temperature Temperature Source Pulse Rate 76 Pulse Rate [Lying] Pulse Rate [Sitting (for 1 minute prior to obtaining)] Pulse Rate [Standing (for 1 minute prior to obtaining)] Respiratory Rate 20 H Respiratory Effort Respiratory Depth Respiratory Pattern Blood Pressure 140/77 H Blood Pressure [Lying] Blood Pressure [Sitting (for 1 minute prior to obtaining)] Blood Pressure [Standing (for 1 minute prior to obtaining)] Blood Pressure Mean 98 Blood Pressure Mean [Lying] Blood Pressure Mean [Sitting (for 1 minute prior to obtaining)] Blood Pressure Mean [Standing (for 1 minute prior to obtaining)] Pulse Ox 97 Oxygen Delivery Method Room Air Weight Weight: 192 lb Body Mass Index (BMI) 30.0 Physical Exam Const oriented x3, no apparent distress and well nourished General Appearance: cooperative HEENT normocephalic Eyes PERRL and EOMs intact bilaterally Neck nuchal rigidity Lymph Lymphatic: no lymphadenopathy noted Resp normal respiratory effort and normal air movement Cardio regular rate, regular rhythm, S1 normal heart sound, S2 normal heart sound and no murmurs GI soft to palpation Extremity normal capillary refill Skin General Skin Exam: no breakdown Neuro CN's II-XII intact bilaterally Results Lab / Micro Data Result Diagrams: 09/24/21 16:15 09/24/21 16:15 Labs: Laboratory Results - last 24 hr 09/24/21 16:15: WBC 4.8, RBC 4.85, Hgb 13.5, Hct 40.5, MCV 83.5, MCH 27.8, MCHC 33.3, RDW Std Deviation 38.8, RDW Coeff of Gladis 12.9, Plt Count 246, MPV 8.8, Immature Gran % (Auto) 0.200, Neut % (Auto) 48.4, Lymph % (Auto) 35.5, Harris % (Auto) 12.3 H, Eos % (Auto) 2.3, Baso % (Auto) 1.3 H, Absolute Neuts (auto) 2.3, Absolute Lymphs (auto) 1.70, Nucleated RBC % 0 09/24/21 16:15: Sodium 140, Potassium 3.5, Chloride 107, Carbon Dioxide 24.0, Anion Gap 9, BUN 13, Creatinine 0.65, Estim Creat Clear Calc 88.39, Est GFR (MDRD) Af Amer 120, Est GFR (MDRD) Non-Af 99, BUN/Creatinine Ratio 20.1 H, Glucose 91, Calcium 9.1, Troponin I High Sens < 3 L Rhythm Strip Rhythm Strip: Sinus Rhythm Rate: 87 Ectopy: None Radiology Impression Head/Neck CTA 09/24/21 15:56 IMPRESSION: 1. Normal non-contrast CT scan of the brain. 2. Normal CTA Head and neck with contrast. Electronically Signed: Jayden Gregg MD at 18:10 EDT , Chest X-Ray 09/24/21 16:18 IMPRESSION: Normal x-ray examination of the chest. Electronically Signed: Nilay Paige MD at 16:47 EDT , Assessment Plan Assessment/Plan (1) Orthostatic hypotension: (2) History of COPD: (3) Shortness of breath: (4) Hyperlipidemia: (5) Thyroid cancer: (6) Falls: PLAN: Plan 1. Orthostatic hypotension???admit patient to general medical floor for observation, iv normal saline at 125cc/hour repeat orthostatic vitals overnight. consider trial of florinef in am. Rewpeat BMP in am 2. Hypothyroid- continue synthroid 3. fall risk -- consider PT eval in am if orthostatics do not improve 4. Hyperli[pidemia- continue statin. 5. DVT prophylaxis- LMWH Charges/Coding Visit Charges OBSV E M: 32780 Initial observation care L2 09/24/212105 <Electronically signed by Sumit Chacon MD> Cosigner Signature (if applicable): CC: CLINIC MANAGER-C Jessica May; Dr. Sumit Chacon MD Signed Jessica May Work Phone: Start: 09-24-2021 End: 09-24-2021 Chest 1 View (Portable) Comments: See Note; NOTES: [facility] Imaging Services [address] [place] [address] Chest 1 View (Portable) MR#: [id number] Acct: [id number] Name: PINA ORTEGA Rep #: [id number] : 1960 F 61 From: Nilay Paige MD PCP: MADELYN Gilliam Status: REG ER Study: Chest 1 View (Portable) Date of Exam: 09/24/21 Exam# [id number] Ordering Dr: Gregorio Redd MD STUDY: X-RAY CHEST REASON FOR EXAM: Female, 61 years old. chest pain TECHNIQUE: Single AP portable view of the chest. COMPARISON: 01/03/2020 FINDINGS: The lungs are clear and expanded. There is no demonstrated pleural abnormality. Normal size heart. Normal mediastinum and tony. Normal visualized pulmonary arteries. Normal visualized aortic arch and descending thoracic aorta. Dorsal column spinal stimulator in the lower thoracic spine. Normal visualized ribs, clavicles, and shoulders. There is no demonstrated abnormality of the visualized soft tissue structures of the upper abdomen. RAD/Chest 1 View (Portable) IMPRESSION: Normal x-ray examination of the chest. Electronically Signed: Nilay Paige MD at 16:47 EDT , CC: MADELYN May; Dr. Gregorio Redd MD Strategic Planner: Signed Jessica May Work Phone: Start: 09-24-2021 Plain chest X-ray CLINIC MANAGER-C Jessica May CLINIC MANAGER Work Phone: Start: 09-24-2021 CT angiography of he ad and neck CLINIC MANAGER-C Jessica May CLINIC MANAGER Work Phone: Start: 09-24-2021 End: 09-24-2021 CTA Head AND Neck W/ Contrast Comments: See Note; NOTES: [facility] Imaging Services [address] [place] [address] CTA Head AND Neck W/ Contrast MR#: [id number] Acct: [id number] Name: PINA ORTEGA Rep #: [id number] : 1960 F 61 From: Jayden Gregg MD PCP: MADELYN Gilliam Status: REG ER Study: CTA Head AND Neck W/ Contrast Date of Exam: Exam# [id number] Ordering Dr: Gregorio Redd MD STUDY: CTA HEAD AND NECK WITH CONTRAST AND DEMONSTRATION OF 1701 HOURS ON 09/24/2021 REASON FOR EXAM: 61-year-old female with dizziness. RADIATION DOSAGE (If Supplied By Facility): CTDIvol = ( 31.80 ) mGy, DLP = ( 1401.35 ) mGycm TECHNIQUE: CT angiography was performed with a multi-detector CT scanner. Data acquisition was obtained from the skull base through the vertex following intravenous administration of IV 100mL Isovue-370. MIP images were reconstructed from the axial data set. Post-processing of the angiographic images was performed, with multiplanar reformation and 3D reconstruction. Individualized dose optimization techniques were used for this CT. COMPARISON: No relevant priors. FINDINGS: CT OF THE BRAIN WITHOUT CONTRAST: Normal ventricular system. No midline shift. No evidence of ischemic or hemorrhagic cerebral infarct. No intracranial neoplasms. No subdural, epidural, intracerebral hematoma, hemorrhage or contusion. Normal caliber sinuses. CT ANGIOGRAPHY OF THE BRAIN: Normal bilateral petrous carotid arteries. Normal right cavernous carotid artery with a normal supraclinoid bifurcation. Normal left cavernous carotid artery with a normal supraclinoid bifurcation. Normal right A1 segments of the anterior cerebral artery. Normal left A1 segments of the anterior cerebral artery. Normal intact anterior communicating artery (ACOM). Normal bilateral A2 segments of the anterior cerebral arteries. Normal right M1 and M2 segments of the middle cerebral arteries, with a normal M1 bifurcation. Normal left M1 and M2 segments of the middle cerebral arteries, with a normal M1 bifurcation. Normal right posterior communicating artery (PCOM). Normal left posterior communicating artery (PCOM). Normal bilateral vertebral arteries. Normal basilar artery with a normal basilar bifurcation. The visualized bilateral superior cerebellar (SCA) arteries are normal. Normal bilateral P1, P2 and visualized P3 segments of the posterior cerebral arteries. There is no demonstrated aneurysm of the the [place] of Hernandez. There is no demonstrated abnormality of the visualized brain. AORTIC ARCH: Normal visualized aortic arch. Normal origins of the brachiocephalic, left common carotid, and left subclavian arteries. RIGHT CAROTID ARTERIES: Normal right common carotid artery (CCA). Normal right common carotid bulb. Normal origin of the right internal carotid (ICA) artery without a hemodynamically significant stenosis. Normal visualized cervical portion of the right internal carotid artery. Normal origin of the right external carotid artery (ECA). LEFT CAROTID ARTERIES: Normal left common carotid artery (CCA). Normal left common carotid bulb. Normal origin of the left internal carotid (ICA) artery without a hemodynamically significant stenosis. Normal visualized cervical portion of the left internal carotid artery. Normal origin of the left external carotid artery (ECA). VERTEBRAL ARTERIES: Normal bilateral vertebral arteries. CT/CTA Head AND Neck W/ Contrast IMPRESSION: 1. Normal non-contrast CT scan of the brain. 2. Normal CTA Head and neck with contrast. Electronically Signed: Jayden Gregg MD at 18:10 EDT , CC: CLINIC MANAGER-C Jessica May; Dr. Gregorio Redd MD Strategic Planner: Signed Jessica Solanojohn Work Phone: Start: 08-09-2021 End: 08-28-2021 Chest 1 View (Portable) Comments: See Note; NOTES: [facility] Imaging Services [address] [place] [address] Chest 1 View (Portable) MR#: [id number] Acct: [id number] Name: PINA ORTEGA Rep #: [id number] : 1960 F 61 From: Nilay Paige MD PCP: MADELYN Gilliam Status: REG ER Study: Chest 1 View (Portable) Date of Exam: 08/09/21 Exam# [id number] Ordering Dr: Sumit Patterson STUDY: X-RAY CHEST REASON FOR EXAM: Female, 61 years old. syncope TECHNIQUE: Single AP portable view of the chest. COMPARISON: 01/03/2020 FINDINGS: Dorsal column spinal stimulator in the lower thoracic spine. The lungs are clear and expanded. There is no demonstrated pleural abnormality. Normal size heart. Normal mediastinum and tony. Normal visualized pulmonary arteries. Normal visualized aortic arch and descending thoracic aorta. Normal visualized thoracic spine. Normal visualized ribs, clavicles, and shoulders. There is no demonstrated abnormality of the visualized soft tissue structures of the upper abdomen. RAD/Chest 1 View (Portable) IMPRESSION: No active disease. Electronically Signed: Nilay Paige MD at 16:42 EDT , CC: MADELYN May; MADELYN Patterson Strategic Planner: Signed Jessica Yadira Work Phone: Start: 08-09-2021 Plain chest X-ray Start: 08-09-2021 End: 08-28-2021 Brain/Head without Contrast Comments: See Note; NOTES: [facility] Imaging Services [address] [place] [address] Brain/Head without Contrast MR#: [id number] Acct: [id number] Name: PINA ORTEGA Rep #: [id number] : 1960 F 61 From: Nilay Paige MD PCP: MADELYN Gilliam Status: REG ER Study: Brain/Head without Contrast Date of Exam: 07/16 09/05 Exam# [id number] Ordering Dr: Sumit Patterson STUDY: CT BRAIN WITHOUT CONTRAST REASON FOR EXAM: Female, 61 years old. syncope RADIATION DOSAGE (If Supplied By Facility): CTDIvol = ( 44.99 ) mGy, DLP = ( 812.98 ) mGycm TECHNIQUE: Transaxial CT imaging of the brain was performed without administration of intravenous contrast material. Individualized dose optimization techniques were used for this CT. COMPARISON: 08/03/2020 FINDINGS: Normal soft tissue structures. Normal calvarium. Normal size ventricles and extra-axial spaces for the patient''s age. Normal white matter tracts of the cerebral hemispheres. Normal basal ganglia and thalami. Normal brainstem. Normal cerebellum. There is no intracranial hemorrhage. There are no findings of an acute ischemic infarction. Normal visualized paranasal sinuses. CT/Brain/Head without Contrast IMPRESSION: Normal unenhanced CT scan of the brain. Electronically Signed: Nilay Paige MD at 16:42 EDT , CC: MADELYN May; MADELYN Patterson Strategic Planner: Signed Jessica May Work Phone: Start: 08-09-2021 CT of head without contrast Start: 08-09-2021 End: 08-09-2021 Emergency Department Summary Comments: See Note; NOTES: [facility] Medical Records Department [address] [place] [address] Emergency Department Summary 08/09/21 MR#: [id number] Acct: [id number] Name: PINA ORTEGA Rep #: [id number] : 1960 61 From: Sumit JOSHI PCP: MADELYN Gilliam Status:DEP ER Location: ED HPI <MADELYN Masterson - Last Filed: 08/09/21 18:25> History of Present Illness Chief Complaint: Fall Narrative Narrative: 61-year-old female with history of of rheumatoid arthritis, osteoporosis, COPD, anxiety, hypothyroidism presents to the emergency department after syncopal episode. Patient was getting up from the chair to go to bed to take a nap which is not unusual for her, she then had a syncopal episode. Patient woke up and called her daughter. Patient complains of pain to her neck and lower lumbar spine. Patient denies any chest pain, shortness of breath. Patient states she still feels slightly lightheaded here, has history of vertigo however does not believe this is what it normally feels like. Patient denies any other injury. Patient denies any recent illnesses [facility] <MADELYN Masterson - Last Filed: 08/09/21 18:25> [facility] Medical History Adult BMI 30.0-30.9 kg/sq m Allergic rhinitis Anxiety and depression Back pain Compression fracture of L5 lumbar vertebra COPD (chronic obstructive pulmonary disease) Hyperlipidemia Hypothyroidism Obstructive sleep apnea Osteoarthritis Osteoporosis Personal history of nicotine dependence Shoulder pain Thyroid disease Vitamin D deficiency Home Medications albuterol sulfate 2 puff INHALATION PRN PRN 09/07/18 [History Last Taken 01/03/20] amitriptyline 50 mg PO QHS #60 tab 09/09/18 [Rx Last Taken 01/02/20] fluticasone furoate 200 mcg-vilanterol 25 mcg/dose inhalation powder 1 inh INHALATION DAILY 08/22/20 [History Last Taken Unknown] levothyroxine 75 mcg tablet 75 mcg PO DAILY 08/22/20 [History Last Taken Unknown] paroxetine HCl 30 mg tablet 30 mg PO DAILY 08/22/20 [History Last Taken Unknown] denosumab 60 mg/mL subcutaneous syringe 60 mg SUBCUT [id number] ml 08/30/20 [History Last Taken Unknown] meloxicam 7.5 mg tablet 7.5 mg PO DAILY PRN 08/30/20 [History Last Taken Unknown] rosuvastatin 5 mg tablet 5 mg PO DAILY tab 08/30/20 [History Last Taken Unknown] oxycodone-acetaminophen [Percocet] 1 tab PO Q6H PRN 2 Days #7 tab 08/09/21 [Rx Last Taken Unknown] Allergy/AdvReac Type Severity Reaction Status Date / Time No Known Allergies Allergy Verified 08/30/20 09:27 Family History Mother Heart disease Surgical History H/O: hysterectomy History of thyroidectomy Social History Smoking Status: Former smoker quit date: 03/17/14 pack-years: 22 alcohol intake: never caffeine: Yes Type: coffee Number of servings: 3 ROS <MADELYN Masterson - Last Filed: 08/09/21 18:25> ROS ED ROS Narrative Constitutional: Negative for fever, chills, weight loss, weakness Eyes: Negative for vision loss, vision change, double vision ENT: Negative for any sore throat, ear pain, congestion Cardiovascular: Negative for any chest pain, tightness, palpitations Respiratory: Negative for any cough, sputum production, hemoptysis, dyspnea, dyspnea on exertion, orthopnea Gastrointestinal: Negative for any abdominal pain, nausea, vomiting, diarrhea, constipation, blood in stool, blood in vomit : Negative for any urinary frequency, dysuria, retention, blood in urine Muscle skeletal: Negative for any muscle joint pain, stiffness, myalgias, arthralgias. Positive for neck pain, back pain Neurological: Negative for any headache, syncope, numbness or tingling, dizziness. Positive for syncope Skin: Negative for any rashes, lumps, itching, abrasions, lacerations Psychiatric: Negative for any depression, anxiety, stress, suicidal ideation, homicidal ideation Hematologic: Negative for any easy bruising, excessive bruising, easy bleeding Allergies: Negative for any eczema, hives, rash EXAM <Sumit MtzMADELYN grimaldo - Last Filed: 08/09/21 18:25> Physical Exam Narrative Exam Narrative: Vital signs reviewed. Patient has a pale appearance, patient vital signs show slight hypotension with a blood pressure of 95/66 patient is alert and orient x4 HEET: Head normocephalic atraumatic, TMs clear bilaterally. Posterior pharynx is clear, moist mucous membranes. Nares clear bilaterally. Neck: Supple with no lymphadenopathy . No signs of meningismus, negative jolt sign. Patient does have tenderness throughout the entire cervical spine negative for any step-off deformity. Patient is full range of motion of upper extremities. Cardiac: Regular rate and rhythm no murmurs gallops or rubs, equal peripheral pulses bilaterally. Respiratory: Lungs clear to auscultation bilaterally. No chest tenderness. Abdomen: Soft, nontender, nondistended. No abdominal bruit or pulsatile masses. No hepatosplenomegaly Extremities: No peripheral edema, no signs of gross trauma or deformity. Active full range of motion of all extremities. Neuro: Cranial nerves II through XII intact, no focal neurological deficits. Skin: Clean dry and intact with no rash, purpura, petechiae, vesicles or pustules. Backs/flank: No CVA tenderness, patient has pain to the lower midline spine. No crepitus, ecchymosis, step-off deformity. No deformity. Psych: Normal mood and affect. No SI, HI or acute psychosis. Const Vital Signs: 08/09/21 15:09 08/09/21 15:12 08/09/21 16:24 Temperature 98.2 F Temperature Source Oral Pulse Rate 90 70 Respiratory Rate 16 16 Respiratory Effort Normal Blood Pressure 95/66 103/76 Blood Pressure Mean 75 85 Pulse Ox 96 Oxygen Delivery Method Room Air Room Air Room Air 08/09/21 16:58 08/09/21 18:33 Temperature Temperature Source Pulse Rate 73 87 Respiratory Rate 14 16 Respiratory Effort Blood Pressure 103/76 126/78 H Blood Pressure Mean 85 Pulse Ox 95 99 Oxygen Delivery Method Room Air Room Air Positive well nourished and well developed General Appearance ED: well developed <Jamil Mortensen MD - Last Filed: 08/09/21 23:44> Physical Exam Const Vital Signs: 08/09/21 15:09 08/09/21 15:12 08/09/21 16:24 Temperature 98.2 F Temperature Source Oral Pulse Rate 90 70 Respiratory Rate 16 16 Respiratory Effort Normal Blood Pressure 95/66 103/76 Blood Pressure Mean 75 85 Pulse Ox 96 Oxygen Delivery Method Room Air Room Air Room Air 08/09/21 16:58 08/09/21 18:33 Temperature Temperature Source Pulse Rate 73 87 Respiratory Rate 14 16 Respiratory Effort Blood Pressure 103/76 126/78 H Blood Pressure Mean 85 Pulse Ox 95 99 Oxygen Delivery Method Room Air Room Air MDM <MADELYN Masterson - Last Filed: 08/09/21 18:25> MDM MDM Narrative Medical decision making narrative: Patient appears well, patient appears nontoxic, vital signs are stable. Patient presents to the emergency department after a syncopal episode, falling striking her head, neck and injuring her lower back. Patient did receive laboratory values, patient CBC was unremarkable, patient's chemistry was unremarkable, patient's troponin was negative. Patient's EKG was unremarkable. Patient did receive multiple CAT scans, cervical spine shows no acute fracture subluxation. CT of the lumbar spine shows chronic mild compression fracture of L1 and L5 without retropulsion into the spinal cord. No acute process. Patient's brain CT shows a normal unenhanced CT scan of the brain. Patient's chest x-ray was unremarkable. Patient did receive 1 L of IV fluids, IV Zofran, IV fentanyl. Patient's blood pressure was in the mid to low 90s systolic however after IV fluids, patient's blood pressure normalized. Patient was ambulatory and denied any dizziness. At this time, I do not believe the patient had any acute cardiac event, I believe the patient had a syncopal episode secondary to hypotension. The patient feels better, and is stable on her feet and like to be discharged. Patient will follow up closely with her PCP instructed return for any worsening symptoms. Patient stable for discharge I will give the patient a couple days of pain medicine for her neck. Lab Data Labs: Laboratory Results - last 24 hr 08/09/21 08/09/21 15:49 15:49 WBC 5.3 RBC 4.65 Hgb 13.1 Hct 40.1 MCV 86.2 MCH 28.2 MCHC 32.7 RDW Std Deviation 40.2 RDW Coeff of Gladis 12.8 Plt Count 227 MPV 9.3 Immature Gran % (Auto) 0.400 Neut % (Auto) 54.7 Lymph % (Auto) 32.0 Harris % (Auto) 8.8 Eos % (Auto) 3.0 Baso % (Auto) 1.1 H Absolute Neuts (auto) 2.9 Absolute Lymphs (auto) 1.70 Nucleated RBC % 0 Sodium 138 Potassium 3.7 Chloride 105 Carbon Dioxide 26.0 Anion Gap 7 BUN 15 Creatinine 0.71 Estim Creat Clear Calc 80.92 Est GFR (MDRD) Af Amer 107 Est GFR (MDRD) Non-Af 88 BUN/Creatinine Ratio 21.0 H Glucose 94 Calcium 8.9 Troponin I High Sens < 3 L Radiography Diagnostic Testing: Clinical Impression(s) from Imaging Studies Cervical Spine CT 08/09/21 15:27 IMPRESSION: No acute fracture or subluxation. At C5/C6 left uncovertebral joint hypertrophy produces mild left neural foraminal stenosis. Electronically Signed: Nilay Paige MD at 16:48 EDT Reading Location ID and State: [id number] / [employer] , Service support , Lumbar Spine CT 08/09/21 15:45 IMPRESSION: 1. Chronic mild compression fractures of L1 and L5 without retropulsion into the spinal canal. 2. Mild levoscoliosis and degenerative disc disease as described above. Electronically Signed: Nilay Paige MD at 16:51 EDT Reading Location ID and State: [id number] / [employer] , Service support , Brain CT 08/09/21 16:06 IMPRESSION: Normal unenhanced CT scan of the brain. Electronically Signed: Nilay Paige MD at 16:42 EDT Reading Location ID and State: [id number] / [employer] , Service support , Chest X-Ray 08/09/21 16:10 IMPRESSION: No active disease. Electronically Signed: Nilay Paige MD at 16:42 EDT , EKG Normal sinus rhythm: Attestation: I personally reviewed and interpreted this EKG as follows: Comments: Normal sinus rhythm, rate of 80 bpm, OH interval 172 ms, QRS duration 80 ms, <Jamil Mortensen MD - Last Filed: 08/09/21 23:44> MDM MDM Narrative Medical decision making narrative: ATTENDING NOTE: Dr. Mortensen: The patient was seen in conjunction with the PA-C/nurse practitioner. I performed a history and physical, and agree with the management of this patient. I agree with noted documentation and plan. I discussed the plan of care and final disposition with the physician associate/nurse practitioner. Follow-up with syncopal episode. GCS 15. ABCs intact. Transient hypotension. Check labs. Check EKG. Check CTs. Ambulate. Discharge. Lab Data Attestation: I reviewed the patient's lab results. Labs: Laboratory Results - last 24 hr 08/09/21 08/09/21 15:49 15:49 WBC 5.3 RBC 4.65 Hgb 13.1 Hct 40.1 MCV 86.2 MCH 28.2 MCHC 32.7 RDW Std Deviation 40.2 RDW Coeff of Gladis 12.8 Plt Count 227 MPV 9.3 Immature Gran % (Auto) 0.400 Neut % (Auto) 54.7 Lymph % (Auto) 32.0 Harris % (Auto) 8.8 Eos % (Auto) 3.0 Baso % (Auto) 1.1 H Absolute Neuts (auto) 2.9 Absolute Lymphs (auto) 1.70 Nucleated RBC % 0 Sodium 138 Potassium 3.7 Chloride 105 Carbon Dioxide 26.0 Anion Gap 7 BUN 15 Creatinine 0.71 Estim Creat Clear Calc 80.92 Est GFR (MDRD) Af Amer 107 Est GFR (MDRD) Non-Af 88 BUN/Creatinine Ratio 21.0 H Glucose 94 Calcium 8.9 Troponin I High Sens < 3 L Radiography Diagnostic Testing: Clinical Impression(s) from Imaging Studies Cervical Spine CT 08/09/21 15:27 IMPRESSION: No acute fracture or subluxation. At C5/C6 left uncovertebral joint hypertrophy produces mild left neural foraminal stenosis. Electronically Signed: Nilay Paige MD at 16:48 EDT Reading Location ID and State: [id number] / [employer] , Service support , Lumbar Spine CT 08/09/21 15:45 IMPRESSION: 1. Chronic mild compression fractures of L1 and L5 without retropulsion into the spinal canal. 2. Mild levoscoliosis and degenerative disc disease as described above. Electronically Signed: Nilay Paige MD at 16:51 EDT Reading Location ID and State: [email or web address] / [employer] , Service support , Brain CT 08/09/21 16:06 IMPRESSION: Normal unenhanced CT scan of the brain. Electronically Signed: Nilay Paige MD at 16:42 EDT Reading Location ID and State: [id number] / [employer] , Service support , Chest X-Ray 08/09/21 16:10 IMPRESSION: No active disease. Electronically Signed: Nilay Paige MD at 16:42 EDT Reading Location ID and State: [id number] / [employer] , Service support , Discharge Plan Triage Chief Complaint: Fall ED Midlevel Provider: Sumit Patterson ED Provider: Jamil Mortensen Dx/Rx/DC Orders Clinical Impression: Syncope, Cervical muscle strain Instructions: Causes of Syncope, Diagnosing Syncope, ED Neck Sprain or Strain Prescriptions: New oxycodone-acetaminophen [Percocet] 5-325 mg tablet 1 tab PO Q6H PRN (Reason: pain) 2 Days Qty: 7 RF: 0 No Action rosuvastatin 5 mg tablet 5 mg PO DAILY RF: 0 meloxicam [Mobic] 7.5 mg tablet 7.5 mg PO DAILY PRNRF: 0 Prolia 60 mg/mL syringe 60 mg subcut [id number] RF: 0 levothyroxine 75 mcg tablet 75 mcg PO DAILY RF: 0 paroxetine HCl [Paxil] 30 mg tablet 30 mg PO DAILY RF: 0 Breo Ellipta 200-25 mcg/dose blister with device 1 inh inhalation DAILY RF: 0 albuterol sulfate 8.5 GM HFA aerosol inhaler 2 puff inhalation PRN PRN (Reason: Sob /Or Wheezing) RF: 0 amitriptyline 25 MG tablet 50 mg PO QHS Qty: 60 RF: 0 Primary Care Provider: Jessica May NP Referrals: Jessica May NP, CLINIC MANAGER-C [Primary Care Provider] - Activity Restrictions/Additional Instructions: Please change positions slowly for the next couple days. Please maintain hydration. Use pain medicine as needed. Print Language: [place] Disposition Disposition: Home, Self Care Discharge Date/Time: 08/09/21 18:34 What to do if you have Problems For any increased pain, shortness of breath, bleeding, nausea or vomiting, chest pain, or any unexpected problems, contact your Primary Care Provider. Call [facility] ([phone]) or report to the closest Emergency Room. Call 911 if necessary. 08/09/21 1825 <Electronically signed by Sumit JOSHI> Cosigner Signature (if applicable): 08/09/21 2344 <Electronically signed by Jamil Mortensen MD> CC: CLINIC MANAGER-C Jessica May Signed Jessica May Work Phone: Start: 08-09-2021 CT of lumbar spine Start: 08-09-2021 End: 08-28-2021 Spine Lumbar without Contrast Comments: See Note; NOTES: [facility] Imaging Services [address] [place] [address] Spine Lumbar without Contrast MR#: [id number] Acct: [id number] Name: PINA ORTEGA Rep #: [id number] : 1960 F 61 From: Nilay Paige MD PCP: MADELYN Gilliam Status: REG ER Study: Spine Lumbar without Contrast Date of Exam: Exam# [id number] Ordering Dr: Sumit Patterson STUDY: CT LUMBAR SPINE WITHOUT CONTRAST REASON FOR EXAM: Female, 61 years old. fall RADIATION DOSAGE (If Supplied By Facility): CTDIvol = ( 32.58 ) mGy, DLP = ( 1239.86 ) mGycm TECHNIQUE: The patient was scanned in a multi detector CT scanner. High resolution transaxial imaging was performed. Images were obtained from T12 to S1. Sagittal and coronal images were reconstructed. Individualized dose optimization techniques were used for this CT. COMPARISON: MRI 05/12/2019 FINDINGS: Normal lumbar lordosis. Mild levoscoliosis centered at L3. No change in the chronic mild compression fractures of L1 and L5 without retropulsion into the spinal canal. L1-2: Normal endplates. Normal disc height and morphology. Normal bilateral facet joints. Normal central canal and bilateral lateral recesses. Normal bilateral intervertebral neural foramina. L2-3: Normal endplates. Normal disc height and morphology. Normal bilateral facet joints. Normal central canal and bilateral lateral recesses. Normal bilateral intervertebral neural foramina. L3-4: Normal endplates. Normal disc height and morphology. Normal bilateral facet joints. Normal central canal and bilateral lateral recesses. Normal bilateral intervertebral neural foramina. L4-5: Mild bilateral facet hypertrophy and ligament flavum hypertrophy. 2 mm of anterolisthesis of L4 on L5. Mild broad disc protrusion produces mild spinal stenosis and mild bilateral neural foraminal stenosis. L5-S1: Normal endplates. Normal disc height and morphology. Normal bilateral facet joints. Normal central canal and bilateral lateral recesses. Normal bilateral intervertebral neural foramina. Normal visualized paraspinous soft tissue structures. CT/Spine Lumbar without Contrast IMPRESSION: 1. Chronic mild compression fractures of L1 and L5 without retropulsion into the spinal canal. 2. Mild levoscoliosis and degenerative disc disease as described above. Electronically Signed: Nilay Paige MD at 16:51 EDT , CC: MADELYN May; MADELYN Patterson Strategic Planner: Signed Jessica May Work Phone: Start: 08-09-2021 CT cervical spine without contrast Start: 08-09-2021 End: 08-28-2021 Spine Cervical without Contras Comments: See Note; NOTES: [facility] Imaging Services [address] [place] [address] Spine Cervical without Contras MR#: [id number] Acct: [id number] Name: PINA ORTEGA Rep #: [id number] : 1960 F 61 From: Nilay Paige MD PCP: MADELYN Gilliam Status: REG ER Study: Spine Cervical without Contras Date of Exam: 0 08/09/21 Exam# [id number] Ordering Dr: Sumit Patterson STUDY: CT CERVICAL SPINE WITHOUT CONTRAST REASON FOR EXAM: Female, 61 years old. neck pain RADIATION DOSAGE (If Supplied By Facility): CTDIvol = ( 23.68 ) mGy, DLP = ( 533.79 ) mGycm TECHNIQUE: High resolution transaxial imaging was performed without contrast material. Sagittal and coronal images were reconstructed. Individualized dose optimization techniques were used for this CT. COMPARISON: None FINDINGS: Normal craniovertebral junction. Normal anterior atlantoaxial articulation. Normal odontoid process. Normal cervical lordosis. Normal vertebral bodies and posterior osseous elements. C2-3: Normal endplates. Normal disc height and morphology. Normal central canal and intervertebral neuroforamina. C3-4: Normal endplates. Normal disc height and morphology. Normal central canal and intervertebral neuroforamina. C4-5: Normal endplates. Normal disc height and morphology. Normal central canal and intervertebral neuroforamina. C5-6: Left uncovertebral hypertrophy results in mild left neural foraminal stenosis. No central spinal stenosis. C6-7: Normal endplates. Normal disc height and morphology. Normal central canal and intervertebral neuroforamina. C7-T1: Normal endplates. Normal disc height and morphology. Normal central canal and intervertebral neuroforamina. Status post left lobectomy of thyroid gland. CT/Spine Cervical without Contras IMPRESSION: No acute fracture or subluxation. At C5/C6 left uncovertebral joint hypertrophy produces mild left neural foraminal stenosis. Electronically Signed: Nilay Paige MD at 16:48 EDT , CC: MADELYN May; MADELYN Patterson Strategic Planner: Signed Jessica May Work Phone: Start: 08-09-2021 End: 08-28-2021 12 Lead EKG Comments: See Note; NOTES: [facility] Cardiovascular Services [address] [place] [address] 12 Lead EKG 08/09/21 1552 MR#: [id number] Acct: [id number] Name: PINA ORTEGA Rep #: [id number] : 1960 61 From: Pierre Jones MD Attending Dr: Status: DEP ER Ordering Dr: Sumit Patterson Date: 08/09/21 Location: ED Sex: F C Admitted: Test Reason : FALL Blood Pressure : / mmHG Vent. Rate : 080 BPM Atrial Rate : 080 BPM P-R Int : 172 ms QRS Dur : 080 ms QT Int : 374 ms P-R-T Axes : 025 -02 013 degrees QTc Int : 431 ms Normal sinus rhythm Normal ECG Confirmed by PIERRE JONES MD ([id number]), film editor CECE MOODY ([id number]) on 08/10/2021 10:20:16 AM Referred By: ANATOLY Confirmed By:PIERRE JONES MD 08/10/21 1020 Date Pierre Jones MD CC: CLINIC MANAGER-Abram May; CLINIC MANAGER-Abram Patterson; Dr. Jamil Mortensen MD Signed Jessica May Work Phone: Start: 05-16-2021 CT of chest Start: 05-16-2021 End: 05-16-[address] Lung Screening Comments: See Note; NOTES: [facility] Imaging Services [address] [place] [address] Lung Screening MR#: [id number] Acct: [id number] Name: PINA ORTEGA Rep #: [id number] : 1960 F 61 From: Coleman coreas MD PCP: MADELYN Gilliam Status: [facility] CLI Study: Low Dose CT Lung Screening Date of Exam: 05/16 Exam# [id number] Ordering Dr: Eyad Smith MD STUDY: LOW DOSE CT LUNG CANCER SCREENING REASON FOR EXAM: Female, 61 years old. NICOTINE DEPENDENCY. The patient smoked 1 pack per day for 43 years. RADIATION DOSAGE (If Supplied By Facility): CTDIvol = ( 2.39 ) mGy, DLP = ( 67.59 ) mGycm TECHNIQUE: No contrast was administered. Low dose technique was utilized (average mAS-38 and kVp 120). 1.25 mm axial source images with a slice interval of 1.25-mm were reconstructed in lung windows. 2.5 mm axial source images with a slice interval of 2.5-mm were reconstructed in lung windows. 5.0 mm axial source images with a slice interval of 5.0-mm were reconstructed in soft tissue windows. Nodule measured using lung windows on PACS and/or independent workstation with automated measurement of minimum and maximum diameter. Nodule measurement reported as average diameter rounded to the nearest whole number. Growth is defined as an increase ins size of greater than 1.5 mm. COMPARISON: Comparison is made with prior examination in 01/03/2020. NODULES: No suspicious nodules are seen. Emphysema: Mild residual linear scarring at the lung bases. Endobronchial lesion: None Aorta: Mild atherosclerotic plaque formation of the aortic arch. Coronary arteries: Coronary artery calcification. Heart: Unremarkable. Pulmonary artery: Unremarkable Mediastinal nodes: Unremarkable Other chest and abdominal findings: Small hiatal hernia. CT/Low Dose CT Lung Screening IMPRESSION: Lung-RADS category 2 - Continue annual screening with LDCT in 12 months. IMPORTANT NOTES FOR USE: ACR Lung-RADS Version 1.1 Assessment Categories Release Date: 2018 Category: Coded 0-4 bases on nodule(s) with highest degree of suspicion. Negative screen is defined as categories 1 and 2; a positive screen is defined as categories 3 and 4. Category 3 and 4A nodules that are unchanged on interval CT should be coded as category 2, and individuals returned to screening in 12 months. Category 4X: Category 3 or 4 nodules with additional imaging findings that increase the suspicion of lung cancer, such as spiculation, GGN that doubles in size in 1 year, enlarged lymph notes, etc. Category Modifiers: S (significant finding unrelated to lung cancer) Electronically Signed: Coleman Sutton MD at 14:23 EST Reading Location ID and State: [address] [place] [address] , Service support , CC: MADELYN May; Dr. Eyad Smith MD Strategic Planner: Signed Eyad Smith Work Phone: Start: 09-13-2020 End: 09-13-2020 Stress Report Comments: See Note; NOTES: [facility] Cardiovascular Services [address] [place] [address] MR#: [id number] Acct: [id number] Name: PINA ORTEGA Rep #: [id number] : 1960 60 From: Pierre Jones MD Primary Care: JANAK GilliamC Status: REG CLI Referring Dr: Pierre Jones MD Sex: F C Stress Test Report Pharmacologic myocardial perfusion stress test. 60-year-old lady with a history of persistent shortness of breath with exertion, history of obstructive lung disease. Stress protocol: Resting EKG demonstrates normal sinus rhythm with a rate of 75 bpm normal intervals are noted resting blood pressure is 122/80 mmHg. 0.4 mg of regadenoson was infused per usual protocol followed by rapid intravenous saline flush injection continuous EKG monitoring was performed. The maximum heart rate attained was 107 bpm which was 66% of maximum predicted heart rate the maximum workload was 1 metabolic equivalent. At rest there were no ST or T wave changes noted to suggest abnormal flow reserve and at peak infusion nonspecific ST changes were noted with did not meet the criteria for ischemia. No clinical angina was noted the resting blood pressure is 122/80 with a final blood pressure 116/70 mmHg. Myocardial perfusion protocol. 11.9 mCi of technetium 99m sestamibi was injected at rest. 0.4 mg of regadenoson was infused per usual protocol. At peak infusion 34.6 mCi of technetium 99m sestamibi was injected stress images were obtained stress and rest images were reconstructed and compared in the short axis vertical long and horizontal long axis. Gated images were also obtained to Perfusion SPECT analysis: Review of the stress images demonstrate normal uptake of tracer noted in all areas of the myocardium. The resting images similarly demonstrate normal uptake of tracer noted in all areas of the myocardium. No areas of reversibility are noted suggest ischemia and no previous infarct is noted. Gated SPECT analysis: The gated ejection fraction is 85%. Conclusion: Normal pharmacologic myocardial perfusion stress test. Preserved ejection fraction. 09/13/201737 <Electronically signed by Pierre Jones MD> Date Pierre Jones MD CC: CLINIC MANAGER-C Jessica May; Dr. Pierre Jones MD Date Dictated: 09/13/201734 Date Transcribed: 09/13/201734 Strategic Planner: [place] Signed Jessica May CNP Work Phone: Start: 09-13-2020 End: 09-15-2020 Echo Complete Comments: See Note; NOTES: [facility] Cardiovascular Services [address] [place] [address] Echo Complete 09/13/20 0808 MR#: [id number] Acct: [id number] Name: PINA ORTEGA Rep #: [id number] : 1960 60 From: Pierre Jones MD Attending Dr: Dr. Pierre Jones MD Status: REG C Ordering Dr: Pierre Jones MD Date: 09/13/20 Location: CVS Sex: F C Admitted: Reason For Study: Dyspnea/SOB Procedure This was a 2D Doppler, Color Flow transthoracic echocardiogram. Exam performed in department. Left Ventricle Normal LV size. Left ventricular systolic function is normal. The estimated ejection fraction is 55 %. Stage 1 diastolic dysfunction. No regional wall motion abnormalities noted. Right Ventricle Normal RV size. Normal systolic function. Atria Normal left atrium. Normal right atrium. Mitral Valve Normal mitral valve. Mild (1+) eccentric mitral valve insufficiency. Tricuspid Valve Normal tricuspid valve. Mild tricuspid valve insufficiency. Aortic Valve Normal aortic valve. Trisinus/trileaflet aortic valve. Mild (1+) aortic valve insufficiency. Pulmonic Valve Normal pulmonic valve. Great Vessels Normal aortic root. Pericardium/Pleural No pericardial effusion. MMode/2D Measurements Calculations LVIDd: 4.2 cm IVSd: 1.1 cm Ao root diam: 2.8 cm LVIDs: 2.7 cm LVPWd: 0.97 cm RVDd: 2.4 cm FS: 36.8 % LAV(MOD-bp): 35.5 ml LVAd ap4: 20.1 cm2 SV(MOD-sp4): 28.9 ml LAV(MOD-bp) Indexed: 17.9 ml/m2 LVLd ap4: 7.2 cm LAV(MOD-sp2): 41.8 ml EDV(MOD-sp4): 46.5 ml LAV(MOD-sp4): 27.6 ml EDV(sp4-el): 47.6 ml LVAs ap4: 10.8 cm2 LVLs ap4: 5.6 cm ESV(MOD-sp4): 17.6 ml ESV(sp4-el): 17.5 ml EF(MOD-sp4): 62.1 % EF(sp4-el): 63.3 % SV(sp4-el): 30.1 ml LA A4 area: 12.9 cm2 RA A4 area: 9.7 cm2 Doppler Measurements Calculations MV E max jason: 46.3 cm/sec Lat Peak E' Jason: 8.3 cm/sec Med Peak E' Jason: 5.7 cm/sec MV A max jason: 56.9 cm/sec E/E' lat: 5.6 E/E' med: 8.1 MV E/A: 0.81 Ao V2 max: 115.4 cm/sec LV V1 max: 97.1 cm/sec PA V2 max: 86.7 cm/sec Ao max P.3 mmHg LV V1 max P.8 mmHg Ao V2 mean: 81.0 cm/sec Ao mean P.9 mmHg Ao V2 VTI: 20.2 cm PI end-d jason: 111.3 cm/sec TR max jason: 219.7 cm/sec TR max P.3 mmHg ECHO/Echo Complete Interpretation Summary Normal LV size. Left ventricular systolic function is normal. The estimated ejection fraction is 55 %. Stage 1 diastolic dysfunction. Mild tricuspid valve insufficiency. _ Ordering Physician: Pierre Jones Referring Physician: Jessica May Performed By: Skylar Dillard, RDCS, RVT 09/13/20924 Date Pierre Jones MD CC: CLINIC MANAGER-C Jessica May; Dr. Pierre Jones MD Date Dictated: 09/13/20807 Date Transcribed: 09/13/20924 Strategic Planner: Signed Jessica May CNP Work Phone: Start: 08-30-2020 End: 09-01-2020 12 Lead EKG performed by [facility] Comments: See Note; NOTES: [facility] [address] [place] [address] 12 Lead EKG performed by [facility] 08/30/20926 MR#: [id number] Acct: [id number] Name: PINA ORTEGA Rep #: [id number] : 1960 60 From: Pierre Jones MD Attending Dr: Dr. Pierre Jones MD Status: DEP A MB Ordering Dr: Pierre Jones MD Date: 08/30/20 Location: [facility] Sex: F C Admitted: BMS/12 Lead EKG performed by [facility] Sinus Rhythm WITHIN NORMAL LIMITS 08/31/20 1700 <Electronically signed by Pierre Jones MD> Date Pierre Jones MD CC: CLINIC MANAGER-C Jessica May Date Dictated: 08/30/20926 Date Transcribed: 08/30/20926 Strategic Planner: [place] Signed Jsesica May SPANISH LECTURER Work Phone: Start: 08-30-2020 End: 08-30-2020 Cardiology Visit Report Comments: See Note; NOTES: [facility] [address] [place] [address]. [address] [place] [address] OFFICE VISIT Date of Service: 08/30/20 MR#: [id number] Acct: [id number] Name: PINA ORTEGA Rep #: [id number] : 1960 Provider: Dr. Pierre Jones MD Age/Sex: 60/F Location: [facility] Status: Signed [facility] History of Present Illness Details: 60-year-old lady with a history of persistent shortness of breath and shortness of breath with exertion. She does have a history of obstructive lung disease and was apparently doing a walking test and was noted to be markedly short of breath. She has had previous investigation with her CLINIC MANAGER which has been normal. PFTs done in April 2019 demonstrated an FVC of 75% with reversibility and mild restriction. She did have a CT scan of her chest which was not significantly remarkable. Her physical exam here today is unremarkable. Intake Vital Signs 08/30/20 09:26 Height 5 ft 7 in Weight: 196 lb BMI 30.7 BP 109/81 H Respiration 16 Pulse 108 H Pulse Oximetry (%) 95 Intake Visit Reasons: DYSPNEA (R SIBILIA) Allergies No Known Allergies Allergy (Verified 08/30/20 09:27) Medications albuterol sulfate 2 puff INHALATION PRN PRN 09/07/18 [History Confirmed 08/30/20] amitriptyline 50 mg PO QHS #60 tab 09/09/18 [Rx Confirmed 08/30/20] fluticasone furoate 200 mcg-vilanterol 25 mcg/dose inhalation powder 1 inh INHALATION DAILY 08/22/20 [History Confirmed 08/30/20] levothyroxine 75 mcg tablet 75 mcg PO DAILY 08/22/20 [History Confirmed 08/30/20] paroxetine HCl 30 mg tablet 30 mg PO DAILY 08/22/20 [History Confirmed 08/30/20] denosumab 60 mg/mL subcutaneous syringe 60 mg SUBCUT [id number] ml 08/30/20 [History Confirmed 08/30/20] meloxicam 7.5 mg tablet 7.5 mg PO DAILY PRN 08/30/20 [History Confirmed 08/30/20] rosuvastatin 5 mg tablet 5 mg PO DAILY tab 08/30/20 [History Confirmed 08/30/20] PFSH Medical History Adult BMI 30.0-30.9 kg/sq m Allergic rhinitis Anxiety and depression Back pain Compression fracture of L5 lumbar vertebra COPD (chronic obstructive pulmonary disease) Hyperlipidemia Hypothyroidism Obstructive sleep apnea Osteoarthritis Osteoporosis Personal history of nicotine dependence Shoulder pain Thyroid disease Vitamin D deficiency Surgical History H/O: hysterectomy History of thyroidectomy Family History Mother Heart disease Social History Smoking Status: Former smoker quit date: 03/17/14 pack-years: 22 alcohol intake: never caffeine: Yes Type: coffee Number of servings: 3 ROS Const Const: Negative for fatigue, weakness, headache(s), frequent falls, difficulty sleeping or excessive sweating Eyes Eyes: Negative for loss of peripheral vision, transient loss of vision, blurry vision, double vision or tunnel vision ENT ENT: Negative for headache(s), dizziness, Nosebleed/epistaxis or balance problems Cardio Chest Pain: No Palpitations: Yes (fast HR with little activiy, becomes SOB) feels like its: fast and pounding Edema: None Muscle aches with walking: None Resp Respiratory: Positive for SOB with activity (SOB and racing heart beat with activity); Negative for SOB at rest, SOB orthopnea SOB lying down, Cough or paroxysmal nocturnal dyspnea GI GI: Negative nausea, vomiting, heartburn or black,tarry stools : Negative for hematuria Musc Musc: Negative for muscle aches/ myalgia, muscle weakness, joint pain or balance problems Skin Skin: Negative non-healing lesions, rash or unusual bruising Neuro Neuro: Negative for dizziness, lightheadedness, near syncope, syncope, orthostatic symptoms, frequent falls, headache(s), weakness, blurry vision, double vision or lack of coordination [place] Hematologic/Lymphatic: Negative for easy bleeding or easy bruising Endo Endo: Negative for fatigue, excessive sweating or increased thirst/drinking Psych Psych: Negative for anxiety or depression Allergy Allergy/Immunology: Negative for hives and Negative for rash Cardiology Exam Const Appearance: cooperative, healthy appearing, no acute distress, well developed and well groomed Nutritional Appearance: average body habitus and well nourished Orientation: alert, awake and oriented x3 Head Head: normal to inspection, normocephalic and atraumatic Ears: hearing grossly normal bilaterally and external ears normal Nose: external nose normal, nares normal, nasal mucous membranes and turbinates normal, septum normal and no nasal discharge Face and Sinus: face symmetric Mouth: oral mucosae normal, tongue normal, oropharynx normal and moist mucous membranes Teeth and gingiva: dentition normal Throat: posterior oropharynx normal, tonsils normal and uvula midline Eyes General: appearance normal, both eyes and all related structures Eyelids: eyelids normal Conjunctivae: conjunctivae normal Pupils: PERRL, normal by confrontation and accommodation normal EOM: EOM intact bilaterally Neck Neck: normal visual inspection, trachea midline and no JVD JVD: +5 Carotids: normal carotid upstroke and bounding pulses Chest Chest inspection: normal inspection of the chest, symmetric chest movement and normal respiratory effort Auscultation: Bilateral: Clear to Auscultation Cardio Palpation: normal PMI Rate: regular rate Rhythm: regular rhythm Heart sounds: S1 normal, S2 normal and normal, physiologic split S2; Negative rub, gallop or murmur GI GI: normal to inspection, soft, no hepatosplenomegaly and bowel sounds present Neuro General: patient alert, patient awake, patient oriented x3, gait normal, moves all extremities and no focal sensory deficit Skin Skin: no rashes or lesions noted Extremities Pulses: Normal: Right Femoral Pulse, Left Femoral Pulse, Right Dorsalis Pedis Pulse, Left Dorsalis Pedis Pulse, Right Posterior Tibial Pulse, Left Posterior Tibial Pulse, Right Radial Pulse and Left Radial Pulse Lower Extremity Edema: None: Bilateral Musculoskel Musculoskeletal: No joint tenderness Psych Psychological: normal affect Assessment and Plan Assessment and Plan (1) Shortness of breath: Status: Acute Orders: Orders: 12 Lead EKG performed by [facility] Today Echo Complete Today Nuclear Stress Test - Chemical Today Plan - Dr. Pierre Jones MD: She does have shortness of breath which could be an anginal equivalent. My recommendation at this time would be to obtain an echocardiogram to assess her ventricular function and then also obtain a pharmacologic myocardial perfusion stress test and depending on the findings further recommendations will be made. Her BT CLINIC MANAGER is normal which is reassuring and his CT scan also demonstrated no significant cardiac issues. (2) Hyperlipidemia: Status: Chronic Orders: Orders: 12 Lead EKG performed by [facility] Today Plan - Dr. Pierre Jones MD: Recommend we continue with aggressive risk factor modification. Thank you for allowing me to participate in the care of your patient. Please don't hesitate to call if any issues arise. Plan Details Other Orders: Orders: 12 Lead EKG performed by [facility] Today C73 Follow Up: 6 Months (mmm) Coding Level of Care Code Off vis,new,level 4 Diagnoses Shortness of breath R06.02 Hyperlipidemia E78.5 Coding Level of Care Code Off vis,new,level 4 Diagnoses Shortness of breath R06.02 Hyperlipidemia E78.5 Supplemental Info Supplemental Information Labs: No Data to Display Diagnostics: Chest X-Ray Pulmonary: No Data to Display 08/30/20 1029 <Electronically signed by Pierre Jones MD> Date Pierre Jones MD Cosigner Signature: Date (if applicable) CC: CLINIC MANAGERMat May; MD Jessica Sam SPANISH LECTURER Work Phone: Start: 08-09-2020 End: 08-09-2020 Carotid Duplex Ultrasound Comments: See Note; NOTES: [facility] Cardiovascular Services [address] [place] [address] Carotid Duplex Ultrasound 08/09/20 1412 MR#: [id number] Acct: [id number] Name: PINA ORTEGA Rep #: [id number] : 1960 60 From: Eron De La Cruz MD Attending Dr: MADELYN Gilliam Status: REG CLI Ordering Dr: Jessica May NP CLINIC MANAGER-C Date: 08/09/20 Location: [facility] Sex: F C Admitted: Reason For Study: Memory change Rt. Velocities/BP Lt. Velocities/BP Prox CCA 68.2/13.4 cm/sec. Prox CCA 86.3/13.5 cm/sec. Mid CCA 76/17.3 cm/sec. Mid CCA 76.1/11.3 cm/sec. Dist CCA 72.1/17.3 cm/sec. Dist CCA 69.5/12.4 cm/sec. Prox ICA 59.1/12.1 cm/sec. Prox ICA 49.8/11.3 cm/sec. Mid ICA 64.3/18.6 cm/sec. Mid ICA 92.5/26.2 cm/sec. Dist ICA 69.5/21.2 cm/sec. Dist ICA 94.9/31.1 cm/sec. Rt. ICA/CCA = 0.96. Lt. ICA/CCA = 1.25. Prox ECA 89.1/9.5 cm/sec. Prox ECA 61.9/5.8 cm/sec. Rt. Vert. 38.6/9 cm/sec. Lt. Vert. 45.4/12.4 cm/sec. Right Extracranial There is intimal thickening but no significant atherosclerotic plaque noted in the right common carotid artery. There is intimal thickening but no significant atherosclerotic plaque noted in the right internal carotid artery. There is intimal thickening but no significant atherosclerotic plaque noted in the right external carotid artery. Antegrade flow is noted in the right vertebral artery. Left Extracranial There is intimal thickening but no significant atherosclerotic plaque noted in the left common carotid artery. There is intimal thickening but no significant atherosclerotic plaque noted in the left internal carotid artery. There is intimal thickening but no significant atherosclerotic plaque noted in the left external carotid artery. Antegrade flow is noted in the left vertebral artery. Procedure Carotid Duplex 38786. This is a Carotid Duplex examination using B-mode, color flow and specral Doppler. Exam performed in department. VL/Carotid Duplex Ultrasound Interpretation Summary No significant atherosclerotic plaque or stenosis noted in the internal carotid arteries bilaterally. Flow within the vertebral arteries is antegrade bilaterally. _ Ordering Physician: Jessica May Referring Physician: Jessica May Performed By: Christa Kauffman, RVT 08/09/202019 Date Eron De La Cruz MD CC: CLINIC MANAGERLindseyC Jessica May Date Dictated: 08/09/201411 Date Transcribed: 08/09/202019 Strategic Planner: Signed Jessica May [facility] Work Phone: Start: 08-03-2020 End: 08-03-2020 Brain/Head without Contrast Comments: See Note; NOTES: [facility] Imaging Services [address] [place] [address] Brain/Head without Contrast MR#: [id number] Acct: [id number] Name: PINA ORTEGA Rep #: [id number] : 1960 F 60 From: Radames Crane MD PCP: Jessica Ciesa, CLINIC MANAGER-C Status: REG CLI Study: Brain/Head without Contrast Date of Exam: 07/16 Exam# [id number] Ordering Dr: Jessica May NP CLINIC MANAGER-Abram STUDY: CT BRAIN WITHOUT CONTRAST REASON FOR EXAM: Female, 60 years old. Mental status change RADIATION DOSAGE (If Supplied By Facility): CTDIvol = ( 44.99 ) mGy, DLP = ( 796.11 ) mGycm TECHNIQUE: Transaxial CT imaging of the brain was performed without administration of intravenous contrast material. Individualized dose optimization techniques were used for this CT. COMPARISON: 05/01/2019 FINDINGS: Normal soft tissue structures. Normal calvarium. Normal size ventricles and extra-axial spaces for the patient''s age. Normal white matter tracts of the cerebral hemispheres. Normal basal ganglia and thalami. Normal brainstem. Normal cerebellum. There is no intracranial hemorrhage. There are no findings of an acute ischemic infarction. Normal visualized paranasal sinuses. CT/Brain/Head without Contrast IMPRESSION: Age consistent changes, no acute hemorrhage Electronically Signed: Fredis Crane MD at 8:38 EDT , Service support , CC: MADELYN May Strategic Planner: Signed Jessica May [facility] Work Phone: Start: 07-31-2020 End: 07-31-2020 Thoracic Spine 2 Views Comments: See Note; NOTES: [facility] Radiology [address] [place] [address] Thoracic Spine 2 Views MR#: [id number] Acct: [id number] Name: PINA ORTEGA Rep #: [id number] : 1960 F 60 From: Yoav lee MD PCP: MADELYN Gilliam Status: DEP AMB Study: Thoracic Spine 2 Views Date of Exam: 07/31/20 Exam# [id number] Ordering Dr: Peterson Lovelace MD INDICATION: Pain EXAMINATION/TECHNIQUE: X-RAY - XR Spine Thoracic 2 Views COMPARISON: 11/27/2015 FINDINGS: VERTEBRAE: Chronic compression deformities of T5, T7 and T10. No spondylolisthesis. Preservation of the normal thoracic kyphosis. No significant facet arthropathy. DISCS: Disc spaces are maintained. INCLUDED CHEST/ABDOMEN: No acute abnormalities. OTHER: Partially visualized neurostimulator is seen. RAD/Thoracic Spine 2 Views IMPRESSION: Chronic compression deformities of T5, T7 and T10. When compared to prior CT on 05/01/2019, the T10 fracture has worsened. Electronically Signed: Yoav Yi MD at 19:44 EDT Tel , Service support , CC: COLETTE-Abram May; Dr. Peterson Lovelace MD Strategic Planner: Signed Jessica May CNP Work Phone: Start: 01-03-2020 End: 01-03-2020 Operative Report Comments: See Note; NOTES: [facility] Medical Records Department [address] [place] [address] Operative Report 01/03/20 1646 MR#: [id number] Acct: [id number] Name: PINA ORTEGA Rep #: [id number] : 1960 59 From: Peterson Lovelace MD PCP: MADELYN Gilliam Status:[facility] Location: [facility] Report of Operation Date of Procedure: 01/03/20 Description of Surgical Findings:: Pre-Operative Diagnosis: Lumbosacral radiculopathy, lumbosacral degenerative disc disease, lumbosacral spinal stenosis. Post-Operative Diagnosis: Lumbosacral radiculopathy, lumbosacral degenerative disc disease, lumbosacral spinal stenosis. Surgery/Procedure Performed:: 1. Spinal cord stimulator thoracolumbar leads placement x2 #2 spinal cord stimulator Medtronic intellus generator placement #3 spinal cord stimulator generator pocket creation at the left gluteal region #4 spinal cord stimulator simple programming, 5-intraoperative fluoroscopic interpretation Description of Surgical Findings:: PROCEDURES: 1. Spinal cord stimulator thoracolumbar leads placement x2 #2 spinal cord stimulator Medtronic intellus generator placement #3 spinal cord stimulator generator pocket creation at the left gluteal region #4 spinal cord stimulator simple programming 5-intraoperative fluoroscopic interpretation ANESTHESIA: MAC COMPLICATIONS: None BLOOD LOSS: Minimal <25 CC Implanted device: Spinal cord stimulator lead [id number] lot number [id number], lead #2 lot number [id number], Medtronic spinal cord stimulator generator intellus serial number [id number] PROCEDURE IN DETAIL: History and physical today was reviewed. Risks and benefits of procedure explained. The patient understood, agreed to procedure, informed consent was obtained. IV inserted per routine protocol. The patient was taken to the operating room, placed in the prone position with a pillow positioned underneath the abdomen. A 2 g of Ancef IV piggyback was infused per anesthesia. The lower back and left gluteal area was prepped and draped in a sterile fashion using iodine x3. The C-arm was brought in position for AP view at the L1-2 vertebral bodies under direct visualization fluoroscopy on a true AP view the L2-3 interlaminar space was identified skin and subcutaneous tissue and size approximately 10 cc of a mix of 2% lidocaine and 0.25% Marcaine using a 25-gauge regular needle followed by a 25-gauge 6 inch spinal needle towards the interlaminar space at L2-3, the skin and subcutaneous tissue were then anesthetized and using an 11-gauge blade was then taken down to the skin and subcutaneous tissue using a 14-gauge 3.5 inch Touhy needle provided by the gogamingo kit the needle was passed through the skin towards the interlaminar space at L1-2 and a paramedian approach the needle was then advanced under direct visualization fluoroscopy towards the interlaminar space at L1-2 [id number] technique was then carried to air towards the interlaminar space at L3-4 once the tip of the needle was in the epidural space and loss of resistance was encountered to air and after confirmation of AP as well as oblique view of the spinal cord stimulator lead was then advanced under direct visualization fluoroscopy to be at the tip of the lead at T8 and the bottom of the lead around mid T10 after confirmation of AP as well as lateral view to confirm correct placement of the lead in the posterior compartment of the epidural space the previous procedure was then repeated to a level above at T12-L1 interlaminar space the second lead was then inserted under direct visualization with fluoroscopy to be at the mid T8 and mid T11 area the leads were were then connected to the external neurostimulator and patient was then awakened to confirm satisfactory coverage of the painful area once satisfactory coverage was then achieved the stylette of each needle was then removed and the skin and subcutaneous tissue on to the left of the paramedian needles was then taken anesthetized with a total of 10 cc of the previous mixture of 0.25% Marcaine and 2% lidocaine using a 25-gauge regular needle the incision was then taken down through the skin and subcutaneous tissue towards the fascia making sure hemostasis was then maintained via cautery, the spinal cord stimulator leads were then passed through the above incision and secured using the bi-wing and sutured down with a 2-0 nylon to the fascia at that level the spinal cord stimulator leads were then tunneled via a tunneler provided by the [employer] kit towards the previously incised spinal cord stimulator battery at the left gluteal region skin and subcutaneous tissue were anesthetized with approximately 10 cc of a mix of 2% lidocaine and 0.25% Marcaine using a 25 gauge regular needle, skin and subcutaneous tissue was then taken down with the 11-gauge blade hemostasis was maintained with Bovie and direct pressure the incision was then taken down to the fascia and the battery was then secured with the 2-0 silk sutures that were the spinal cord stimulator leads the upper lead was then marked the new until spinal cord stimulator battery was then provided Via gogamingo kit the battery was then reattached of the spinal cord stimulator make ensure that the top lead is attached to the top position from 0-7 electrodes and the bottom from 8-15 electrodes once impedance was then checked to be in the proper average number the intellus battery was then inserted into the pocket and impedance with when checked again the pocket was then inspected to confirm hemostasis in place, the intellus battery was then secured to the fascia using a 2-0 silk to the upper and lower eyes of the battery confirming an upward writing of the intellus facing posterior, once complete confirmation the battery was then placed in the position and the the mid paramedian and the gluteal incisions were then closed primarily through a 3-0 Vicryl in a interrupted fashion followed by a 4-0 chromic to the skin, hemostasis was then maintained during the procedure the skin was then covered with a Steri-Strips and bacitracin patient was then returned into the supine position in a stable condition and returned to recovery in a stable condition patient experienced no signs or symptoms of intrathecal or intravascular injection patient experienced no paresthesia the procedure was completed without any apparent difficulty any complication the patient appeared to tolerate well, motor as well as sensory exam was unchanged from prior to the procedure. ESTIMATED BLOOD LOSS: Minimal less than 25 mL ASSESSMENT AND PLAN: This is a 59-year-old female with lumbosacral radiculopathy lumbosacral degenerative disc disease lumbosacral spinal stenosis, status post 1. Spinal cord stimulator thoracolumbar leads placement x2 #2 spinal cord stimulator Medtronic intellus generator placement #3 spinal cord stimulator generator pocket creation at the left gluteal region #4 spinal cord stimulator simple programming, 5- intraoperative fluoroscopic interpretation patient will continue her current medications a prescription was provided to the patient for Keflex 500 mg 1 p.o. every 8 hours for 7 days, [place] 5-325 mg 1 p.o. every 4 hours as needed acute postoperative pain postop instruction were given in writing to the patient as well as verbally and in writing. the patient will follow approximately 1 week for reevaluation. 01/03/20 1652 <Electronically signed by Peterson Lovelace MD> Date Peterson Lovelace MD CC: CLINIC MANAGERMat May; Dr. Peterson Lovelace MD Signed Jessica May Start: 01-03-2020 End: 01-03-2020 Chest 1 View (Portable) Comments: See Note; NOTES: [facility] Imaging Services [address] [place] [address] Chest 1 View (Portable) MR#: [id number] Acct: [id number] Name: PINA ORTEGA Rep #: [id number] : 1960 F 59 From: Coleman coreas MD PCP: MADELYN Gilliam Status: [facility] Study: Chest 1 View (Portable) Date of Exam: 01/03/20 Exam# [id number] Ordering Dr: Dash Vanegas MD The examination as been dictated. Electronically Signed: Coleman Sutton, at 14:04 EDT , Service support , RAD/Chest 1 View (Portable) CC: CLINIC MANAGER-C Jessica May; Dr. Dash Vanegas MD Strategic Planner: Signed Jessica May Start: 01-03-2020 End: 01-04-2020 Lumbar Spine 2 or 3 Views Comments: See Note; NOTES: [facility] Imaging Services [address] [place] [id number] Lumbar Spine 2 or 3 Views MR#: [id number] Acct: [id number] Name: PINA ORTEGA Rep #: [id number] : 1960 F 59 From: Coleman coreas MD PCP: MADELYN Gilliam Status: [facility] Study: Lumbar Spine 2 or 3 Views Date of Exam: Exam# [id number] Ordering Dr: Peterson Lovelace MD PROCEDURE: Spinal cord stimulator insertion. DATE OF EXAMINATION: 01/03/2020. INDICATION: Female, 59 years old. Chronic back pain. FLUOROSCOPY TIME (if supplied): (3 minutes and 42 seconds) minutes/seconds. 14 intraoperative images were obtained. Intraoperative imaging provided for spinal cord stimulator insertion. The tip of the electrodes are at the T7-T8 level. RAD/Lumbar Spine 2 or 3 Views IMPRESSION: Intraoperative fluoroscopic services provided for spinal cord stimulator insertion. The tips of the electrodes are at the T7-T8 level. Electronically Signed: Coleman Sutton, at 14:29 EDT , Service support , CC: MADELYN May; Dr. Peterson Lovelace MD Strategic Planner: Signed Jessica May Start: 11-04-2019 End: 11-04-2019 DIAG MAMM W/CAD, UNILAT Comments: See Note; NOTES: [facility] Imaging Services [address] [place] [address] DIAG MAMM W/CAD, UNILAT MR#: [id number] Acct: [id number] Name: PINA ORTEGA Rep #: [id number] : 1960 F 59 From: Carlos Whittaker PCP: MADELYN Gilliam Status: REG CLI Study: DIAG MAMM W/CAD, UNILAT Date of Exam: 11/04/19 Exam# [id number] Ordering Dr: Jessica May MAMMOGRAPHY - UNILATERAL DIAGNOSTIC: RIGHT BREAST REASON FOR EXAM: Female, 59 years old. Asymmetry in the right breast seen only on the MLO view for which further evaluation is recommended PERTINENT HISTORY: History of right excisional biopsy in 2011. TECHNIQUE: Digital unilateral breast veronica (3D mammographic acquisition) in the CC and MLO projections. 2-D mediolateral oblique (MLO) and craniocaudad (CC) views of both breasts were obtained. CAD: Full Field Digital Mammography with Computer Added Detection was performed. COMPARISON: None. FINDINGS: Breast Composition: The breasts are almost entirely fatty. The previously described asymmetric density in the right breast dispersed on the spot compression view. There is no evidence of mass. There are no dominant masses or suspicious calcifications. No other significant abnormalities are identified. BI/DIAG MAMM W/CAD, UNILAT IMPRESSION: Stable unilateral diagnostic mammogram. One year follow-up mammogram recommended. (A) ASSESSMENT CATEGORY: BIRADS Category 2: Benign. A letter regarding these results will be sent to the patient by the facility within 30 days. Approximately 10% of breast cancers are not detected by mammography. A normal mammogram should not delay biopsy of a clinically suspicious abnormality. Electronically Signed: Carlos Dewey, at 16:57 EDT Tel , Service support , CC: MADELYN May Strategic Planner: Signed Jessica May Work Phone: Start: 11-02-2019 End: 11-08-2019 Dexa Bone Density Study Comments: See Note; NOTES: [facility] Imaging Services [address] [place] [address] Dexa Bone Density Study MR#: [id number] Acct: [id number] Name: PINA ORTEGA Rep #: [id number] : 1960 F 59 From: Coleman coreas MD PCP: MADELYN Gilliam Status: REG CLI Study: Dexa Bone Density Study Date of Exam: 11/02/19 Exam# [id number] Ordering Dr: Jessica May STUDY: DUAL ENERGY X-RAY ABSORPTIOMETRY / DXA REASON FOR EXAM: Female, 59 years old. Age of surgical piedad 40. Pat is 191.7# and 66.75 and quot; a loss of 3.5 and quot; per pat. Quit smoking 4 yrs ago. Pat has a hx of getting back injections. Takes a thyroid med and a multi-vit. Has a past hx of being on forteo for as long as recommended. Now is on Prolia 1 injection thus far. Hx of a foot, clavical and rib fx''s, pat also states 3 lumbar and 3 thoracic back fx''s. Does not exercise. TECHNIQUE: Bone Mineral Density (BMD) measurements of lumbar spine and bilateral hips were obtained. COMPARISON: Comparison is made with prior study dated 09/25/2017. FINDINGS: Lumbar Spine (L1-L4): g/cm2 (0.758) / T-score (-3.5) / Z-score (-2.4) Findings are suggestive of osteoporosis with a high fracture risk. Left Femur Total: g/cm2 (0.658) / T-score (-2.8) / Z-score (-1.9) Left Femoral Neck: g/cm2 (0.670) / T-score (-2.6) / Z-score (-1.4) Right Femur Total: g/cm2 (0.645) / T-score (-2.9) / Z-score (-2.0) Right Femoral Neck: g/cm2 (0.655) / T-score (-2.8) / Z-score (-1.5) The T-Scores on the most recent prior examination were: Lumbar Spine (L1-L4): There has been worsening of bone density since the previous examination. Left Femur Total: which represents a worsening of 0.9%. Right Femur Total: which represents an improvement of 0.7%. BD/Dexa Bone Density Study IMPRESSION: The patient is considered osteoporotic as outlined below according to World Mani Organization (WHO) criteria with a high fracture risk. There has been worsening of bone density since the previous examination. Reference Information: The T-score is the number of standard deviations above or below the standard which is normal for young adults at their peak bone mineral density. The World Health Organization (WHO) interprets the T-scores as follows: Above -1 Normal bone density Between -1 and -2.5 Osteopenia Equal to / or below -2.5 Osteoporosis As a practical clinical guideline, osteopenia may be graded as follows: Mild -1 through -1.5 Moderate -1.6 through -2.0 Severe -2.1 through -2.4 The Z-score is the number of standard deviations above or below age-matched controls. A Z-score of less than -1.5 would be considered abnormal. References: 1. NIH Osteoporosis and Related Bone Diseases http://www.osteo.org 2. International Society for Clinical Densitometry http://www.iscd.org 3. National Osteoporosis Foundation http://www.nof.org Electronically Signed: Coleman Sutton, at 14:04 EDT , Service support , CC: MADELYN May Strategic Planner: Signed Jessica May Work Phone: Start: 11-02-2019 End: 11-02-2019 SCREEN MAMM (CAD) W/VERONICA BILAT Comments: See Note; NOTES: [facility] Imaging Services [address] [place] [address] SCREEN MAMM (CAD) W/VERONICA BILAT MR#: [id number] Acct: [id number] Name: PINA ORTEGA Rep #: [id number] : 1960 F 59 From: Devang Hilton MD PCP: MADELYN Gilliam Status: REG CLI Study: SCREEN MAMM (CAD) W/VERONICA BILAT Date of Exam: 0 11/02/19 Exam# [id number] Ordering Dr: Jessica May MAMMOGRAPHY - BILATERAL SCREENING 3-D TOMOSYNTHESIS REASON FOR EXAM: Female, 59 years old. Annual screening mammogram. PERTINENT HISTORY: History of right excisional biopsy in 2011. TECHNIQUE: 2-D mammograms and 3-D Tomosynthesis of the breast (s) were performed. CAD was performed. COMPARISON: 09/25/2017 FINDINGS The breast composition is almost entirely fat. Stable left breast. New asymmetry in the central portion of the right breast seen only on the MLO view likely representing asymmetric glandular tissue. Patient should return for compression spot views of this area. If the area persists, ultrasound may be needed. BI/SCREEN MAMM (CAD) W/VERONICA BILAT IMPRESSION: Asymmetry in the right breast seen only on the MLO view for which further evaluation is recommended, as outlined above. ASSESSMENT CATEGORY: BIRADS Category 0: Incomplete. Need additional imaging evaluation as above. A letter regarding these results will be sent to the patient by the facility within 30 days. FOLLOW UP RECOMMENDATION: Additional imaging recommended as above. (E) Approximately 10% of breast cancers are not detected by mammography. A normal mammogram should not delay biopsy of a clinically suspicious abnormality. Electronically Signed: Devang Hilton MD at 17:41 EDT , Service support , CC: MADELYN May Strategic Planner: Signed Jessica May Work Phone: Start: 05-12-2019 End: 05-12-2019 Spine Lumbar W/WO Contrast Comments: See Note; NOTES: [facility] Imaging Services [address] [place] [address] Spine Lumbar W/WO Contrast MR#: [id number] Acct: [id number] Name: PINA ORTEGA Rep #: [id number] : 1960 F 59 From: Joycelyn Smith DO PCP: MADELYN Gilliam Status: REG CLI Study: Spine Lumbar W/WO Contrast Date of Exam: 05/12/19 Exam# [id number] Ordering Dr: Jessica May STUDY: MRI LUMBAR SPINE WITH AND WITHOUT CONTRAST REASON FOR EXAM: Female, 59 years old. back pain, f/u to lesion L4 CLINICAL HISTORY: 59 years Female, back pain, f/u to lesion L4 COMPARISON: Previous CT scan of the lumbar spine obtained on 05/01/2019 TECHNIQUE: MRI lumbar spine was performed utilizing T1 and fast spin-echo T2-weighted and STIR weighted sagittal images followed by angled axial T1 and T2-weighted images obtained from above the L1-L2 intervertebral disc space level down to the L5-S1 level. Sagittal and axial postcontrast T1-weighted images; levels were obtained. FINDINGS: T12-L1: The sagittal images, a paracentral disc herniation is noted at this level on the right. No central spinal stenosis is identified in the neural foramen at this level appear normal bilaterally.. L1-L2: The intervertebral disc and neural foramina appear to be normal. L2-L3:The intervertebral disc and neural foramina appear to be normal. L3-L4: The intervertebral disc and neural foramina appear to be normal. L4-L5: A diffusely bulging disc is noted at this level with no evidence of disc herniation or spinal stenosis. Mild central foraminal stenosis is identified. This is not compressing the L4 nerve roots as they exit the L4-5 neural foramina. L5-S1:The intervertebral disc and neural foramina appear to be normal. Conus medullaris and lumbar nerve roots: The conus medullaris ends at the T12-L1 level and appears to be normal. The lumbar nerve roots appear to be normal. Lumbar spine: The lumbar spine shows vertebral body compression fractures L1, L3, L4, and L5. There is minimal bone marrow edema noted in the anterior aspect of the L4 and the L3 lumbar vertebral body suggestive of subacute or remote vertebral body compression fractures. Since no bone marrow edema is noted in L1 and L5 these are vertebral body compression fractures. There is multiple vertebral body compression fractures are due to diffuse osteoporosis of the lumbar spine MRI/Spine Lumbar W/WO Contrast IMPRESSION: 1. A paracentral disc herniation is noted at the T12-L1 level on the right. 2. Diffuse osteoporosis of the lumbar spine with old vertebral body compression fractures of L1 and L5 and more recent compression fractures of L3 and L4. No retropulsed components of these compression fractures or spinal stenosis is seen. Electronically Signed: Joycelyn Smith, at 11:55 EST Tel , Service support , CC: CLINIC MANAGER-C Jessica May Strategic Planner: Signed Jessica May Work Phone: Start: 05-05-2019 End: 05-05-2019 CTA Chest W/WO Contrast Comments: See Note; NOTES: [facility] Imaging Services [address] [place] [address] CTA Chest W/WO Contrast MR#: [id number] Acct: [id number] Name: PINA ORTEGA Rep #: [id number] : 1960 F 59 From: Manny Hernadnez MD PCP: JANAK GilliamC Status: REG CLI Study: CTA Chest W/WO Contrast Date of Exam: 05/05/19 Exam# [id number] Ordering Dr: Jessica May STUDY: CTA CHEST REASON FOR EXAM: Female, 59 years old. R/O PE, SHORTNESS OF BREATH, ELEVATED D-DIMER RADIATION DOSAGE (If Supplied By Facility): CTDIvol = ( 10.89 ) mGy, DLP = ( 425.18 ) mGycm TECHNIQUE: The examination was performed with the intravenous administration of IV 100 ML ISOVUE 370. Post-processing of the angiographic images was performed, with multiplanar reformation and 3D reconstruction. Individualized dose optimization techniques were used for this CT. COMPARISON: September 07, 2085 FINDINGS: Normal enhancement of the main pulmonary artery and right and left pulmonary arteries. There is limited enhancement of the bilateral peripheral pulmonary arteries. There is no demonstrated pulmonary embolism. There is atherosclerotic calcification of the aortic arch with tortuosity. There is no demonstrated aortic dissection. Normal heart and pericardium. Normal mediastinum. Normal hilar regions. Normal visualized trachea and bronchi. The lungs are well expanded. Normal pulmonary parenchyma. No pleural effusion. Stable nodular pleural thickening in the left lower lung. Normal chest wall structures. There are stable compression fractures of the thoracic spine. There is a small hiatal hernia. CT/CTA Chest W/WO Contrast IMPRESSION: Normal CTA chest examination, without a demonstrated pulmonary embolism or arterial dissection. Electronically Signed: Manny Hernandez MD at 17:48 EST , Service support , CC: MADELYN May Strategic Planner: Signed Jessica May Work Phone: Start: 12-08-2018 End: 12-08-2018 Spine Lumbar (Routine) Comments: See Note; NOTES: [facility] Imaging Services [address] [place] [id number] Spine Lumbar (Routine) MR#: [id number] Acct: [id number] Name: PINA ORTEGA Rep #: [id number] : 1960 F 58 From: Jim Rawls DO PCP: Jessica May, CLINIC MANAGER-C Status: REG CLI Study: Spine Lumbar (Routine) Date of Exam: 12/08/18 Exam# [id number] Ordering Dr: Peterson Lovelace MD STUDY: MRI LUMBAR SPINE WITHOUT CONTRAST REASON FOR EXAM: Female, 58 years old. Radiculopathy. Disc disease. Back pain. Left leg pain. TECHNIQUE: Standardized fat and water weighted pulse sequences were obtained in the sagittal and axial planes. COMPARISON: X-rays dated February 09, 2017 FINDINGS: Chronic L1 and L5 vertebral body height loss (approximately 70%). Approximately 2 to 3 mm retropulsion at the L1 level. No acute fracture line. No acute dislocation. No acute cortical destruction. Slightly atypical signal rounded lesion within the L4 vertebral body (sagittal image 10 series 3) measuring 1.6 cm with mild STIR signal. Slightly exaggerated lumbar lordosis. Minimal levoscoliosis. Conus medullaris terminates normally at the L1 level. T12-L1: Mild endplate spondylosis. Asymmetric disc bulge with mild central canal narrowing. Normal bilateral facet joints. Normal bilateral lateral recesses. Normal bilateral intervertebral neural foramina. L1-2: Mild endplate spondylosis. Mild disc desiccation. Normal bilateral facet joints. Normal central canal and bilateral lateral recesses. Normal bilateral intervertebral neural foramina. L2-3: Normal endplates. Shallow disc bulge with annular fissure. Facet joint arthrosis. Normal central canal and bilateral lateral recesses. Normal bilateral intervertebral neural foramina. L3-4: Normal endplates. Shallow disc bulge. Facet joint arthrosis. Normal central canal and bilateral lateral recesses. Neural foraminal narrowing without impingement. L4-5: Minimal endplate spondylosis. Shallow disc bulge. Facet joint arthrosis. Normal central canal and bilateral lateral recesses. Neural foraminal narrowing without impingement. L5-S1: Mild endplate spondylosis. Shallow disc bulge. Facet joint arthrosis. Normal central canal and bilateral lateral recesses. Neural foraminal narrowing with early nerve root contact on the left. Vacuum phenomenon. Sacrum intact. Mild paraspinal muscle atrophy. Small renal high T2 signal lesions, statistically cysts. MRI/Spine Lumbar (Routine) IMPRESSION: Multilevel intervertebral disc disease with mild central canal narrowing at T12-L1 Multilevel neural foraminal narrowing with early contact of the left exiting L5 nerve root Exaggerated lumbar lordosis with minimal levoscoliosis and mild osteoarthritis Chronic L1 and L5 vertebral body fractures with minimal L1 retropulsion L4 rounded atypical signal lesion (statistically hemangioma; short-term 3-6 month contrast follow-up MRI recommended) Electronically Signed: Jim Rawls DO at 11:12 EDT Tel , Service support , CC: MADELYN May; Peterson Lovelace Strategic Planner: Signed Jessica May Start: 10-22-2018 End: 10-22-2018 Breast Limited Unilateral Comments: See Note; NOTES: [facility] Imaging Services [address] [place] [id number] Breast Limited Unilateral MR#: [id number] Acct: [id number] Name: PINA ORTEGA Rep #: [id number] : 1960 F 58 From: Coleman Sutton MD PCP: MADELYN Gilliam Status: REG CLI Study: Breast Limited Unilateral Date of Exam: 10/22/18 Exam# [id number] Ordering Dr: Jessica May STUDY: ULTRASOUND BREAST - RIGHT REASON FOR EXAM: Female, 58 years old. Pain in the right breast. TECHNIQUE: Axial and longitudinal images of the RIGHT breast were performed with a high resolution ultrasound transducer. COMPARISON: Comparison is made with prior mammogram done earlier in the day. FINDINGS: RIGHT Breast: The lateral half of the right breast was examined by ultrasound. No sonographic abnormality is seen. US/Breast Limited Unilateral IMPRESSION: No sonographic abnormality is seen in the lateral aspect in the right breast. ASSESSMENT CATEGORY: BIRADS Category 1: Negative. A letter regarding these results will be sent to the patient by the facility within 30 days. Electronically Signed: Coleman Sutton, at 10:38 EDT , Service support , CC: MADELYN May Strategic Planner: Signed Jessica May Work Phone: Start: 10-22-2018 End: 10-22-2018 DIAG MAMM W/CAD, BILAT Comments: See Note; NOTES: [facility] Imaging Services [address] [place] [address] DIAG MAMM W/CAD, BILAT MR#: [id number] Acct: [id number] Name: PINA ORTEGA Rep #: [id number] : 1960 F 58 From: Coleman Sutton MD PCP: MADELYN Gilliam Status: REG CLI Study: DIAG MAMM W/CAD, BILAT Date of Exam: 10/22/18 Exam# [id number] Ordering Dr: Jessica May MAMMOGRAPHY - BILATERAL DIAGNOSTIC REASON FOR EXAM: Female, 58 years old. Tenderness at the 9:00 position of the right breast. PERTINENT HISTORY: Non-contributory. Remote right excisional breast biopsy. TECHNIQUE: Digital bilateral breast veronica (3D mammographic acquisition) in the CC and MLO projections. 2-D mediolateral oblique (MLO) and craniocaudad (CC) views of both breasts were obtained. CAD: Full Field Digital Mammography with Computer Added Detection was performed. COMPARISON: Comparison is made with prior study dated September 25, 2017. FINDINGS: Breast Composition: There are scattered areas of fibroglandular density. There are no dominant masses or suspicious calcifications. Stable focal area of architectural distortion in the upper outer aspect of the right breast with history of prior excisional biopsy. No other significant abnormalities are identified. There has been no significant change since the prior study. BI/DIAG MAMM W/CAD, BILAT IMPRESSION: Stable bilateral diagnostic mammogram. With the patient's history of tenderness in the upper outer aspect of the right breast, correlation with ultrasound is recommended. ASSESSMENT CATEGORY: BIRADS Category 0: Incomplete. Need additional imaging evaluation. A letter regarding these results will be sent to the patient by the facility within 30 days. Approximately 10% of breast cancers are not detected by mammography. A normal mammogram should not delay biopsy of a clinically suspicious abnormality. Electronically Signed: Coleman Sutton, at 10:34 EDT , Service support , CC: MADELYN May Strategic Planner: Signed Jessica May Work Phone: Start: 09-07-2018 End: 09-07-2018 History and Physical Exam Comments: See Note; NOTES: [facility] Medical Records Department [address] [place] [address] History and Physical 09/07/182111 MR#: [id number] Acct: [id number] Name: PINA ORTEGA Rep #: [id number] : 1960 58 From: Kisha Farah MD PCP: Jessica May NP Status: REG ER Y Location: ED Problem List (1) Migraine Status: Acute Qualifiers: Migraine type: unspecified Status migrainosus presence: with status migrainosus Intractability: intractable Qualified Code(s): G43.911 - Migraine, unspecified, intractable, with status migrainosus (2) Chest pain Status: Acute Qualifiers: Chest pain type: unspecified Qualified Code(s): R07.9 - Chest pain, unspecified (3) Thyroid cancer Status: Chronic (4) Hypothyroidism Status: Chronic Qualifiers: Hypothyroidism type: acquired Qualified Code(s): E03.9 - Hypothyroidism, unspecified (5) Anxiety and depression Status: Chronic (6) Osteoarthritis Status: Chronic Qualifiers: Osteoarthritis location: hip Osteoarthritis type: unspecified Laterality: left Qualified Code(s): M16.12 - Unilateral primary osteoarthritis, left hip (7) Vitamin D deficiency Status: Chronic History of Present Illness Date of Admission: 09/07/18 Chief Complaint: Chest pain, headache, abdominal complaint, N/V The patient is a 58 y/o F w/ PMHx: OA, Hypothyroidism, Hx Thyroid CA s/p resection, Anxiety and Depression, Hx Tobacco use who presents to the [facility] ED on 09/07/18 with history of intractable headache, diffuse, gradual onset today associated with light and sound sensitivity with intractable ongoing nausea and emesis with noted additionally since intractable N/V ongoing severe diffuse abdominal pain, initially 10/10 but improved now 0/10 with also mid sternal chest pain, burning sensation w/ palpitations, lasts secondary to minutes, worse with episodes N/V, initially 10/10 but improved now 0/10. She does note that her headache is primarily in the frontal and maxillary regions and states that is constant, not specifically throbbing but rates it severe, 10 out of 10. She did have recent hammertoe surgery by Dr. Mukherjee and notes she can walk on the foot when she has her podiatric shoe in place, otherwise no other specific parameters. Work-up in the ED included T 97.7, heart rate 91, BP 130/76, respiratory rate 18, 98% on room air, CBC with WBC 6.3, hemoglobin 13.6, platelet 262 without market shift, CMP not marked appearing, lipase 81, troponin less than 0.015, EKG sinus rhythm with no acute evidence of ischemia, CT abdomen pelvis with no acute abdominal or pelvic pathology, CTPA chest w/ no evidence of pulmonary emboli, bibasilar atelectasis, no consolidation, small hiatal hernia, several partial compression fractures of thoracic spine, CTA Head w/ normal the [place] of Hernandez without demonstrated aneurysm or hemodynamically significant stenosis, CTA neck w/ normal bilateral cervical carotid and vertebral arteries, CT head normal. In the ED patient ministered normal saline, serial doses of Phenergan, Zofran, morphine, Reglan, Dilaudid as well as full-strength aspirin 325 mg p.o. x1. Past Medical History Past Medical History (Chronic Problems): Chronic Problems (Last Updated 02/23/18 @ 10:47 by Meghna Monahan) Thyroid cancer (Chronic) Hypothyroidism (Chronic) Anxiety and depression (Chronic) Osteoarthritis (Chronic) Osteoporosis (Chronic) Vitamin D deficiency (Chronic) Medical History: Medical History (Last Updated 02/23/18 @ 10:47 by Meghna Monahan) Back pain M54.9 Cancer C80.1 H/O: hysterectomy Z90.710 Knee pain M25.569 Shoulder pain M25.519 Thyroid disease E07.9 Allergies No Known Allergies Allergy (Verified 09/07/18 14:29) Home Medications: Ambulatory Orders Medication Instructions Recorded Levothyroxine [Synthroid] 75 mcg PO DAILY 09/22/15 Paroxetine HCl [Paxil] 40 mg PO DAILY 09/22/15 Meloxicam [Mobic] 7.5 mg PO DAILY 01/14/16 Surgical History: - - Thyroid partial resection, tonsillectomy, hysterectomy, right breast biopsy, right upper extremity skin cancer lesion removal. 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 Denies: Chills, Fever, Weight Change HEENT: Reports: Head Aches. Denies: Sinus Congestion, Sinus Drainage Cardiovascular: Reports: Chest Pain. Denies: Palpitations Respiratory: Denies: Cough, Shortness of breath at rest, Sputum production Gastrointestinal: Reports: Abdominal Pain, Nausea, Vomiting Genitourinary: Denies: Dysuria Musculoskeletal: Reports: Back Pain, Joint Pain. Denies: Joint Tenderness Skin: Denies: Rash, Wounds Neurological: Denies: Numbness, Tingling, Focal weakness Psychiatric: Reports: Anxiety, Depression. Denies: Homicidal Ideations, Suicidal Ideations Hematologic/ Lymphatic: Denies: Easy Bruising, Easy Bleeding VTE Information - Inpt Only VTE Present on Admission: No VTE Mechan Device Prophylaxis: SCD's VTE Pharm Prophylaxis ordered?: Yes Patient Problems: Active and Suspected Problems (Last Updated 02/23/18 @ 10:47 by Meghna Monahan) Migraine (Acute) Chest pain (Acute) Subjective: Seated upright in the ED bed, laying on her side, room is dark, notes ongoing headache with sound and light sensitivity. Objective: Physical Examination: General: awake, alert, oriented x 3 and cooperative, seated upright, laying on her side in ED bed, room is dark, remains sound and light sensitive. Skin: normal color, turgor, no icterus, cyanosis. HEENT: AT/NC, EOMI, PERRLA, dry MM, no carotid bruits or JVD noted. Lungs: CTA bilaterally, moderate effort, moderate decrease BL bases, no rales, ronchi or wheezing. Heart: Regular rate and rhythm; no gallop, rub audible, no reproducible chest discomfort with palpation. Abdomen: soft, currently improved, NTTP, ND, normal BS, no HSM. Extremities: no cyanosis, clubbing, or edema. Neurological: patient awake, alert, oriented x 3; cognitive function intact; pupils equally reactive to light and accomodation; cranial nerves II-XII grossly normal, moving all 4 extremities, no focal deficits, strength severely global decrease secondary to acute presentation, remains sound and light sensitive, ongoing headache, some discomfort with palpation of the temporal and maxillary regions. Psychiatric: affect appears fatigued, flat, no acute evidence of depressive or anxiety feelings. - Physical Exam Vital Signs Temp Pulse Resp BP Pulse Ox 97.7 F L 85 14 114/64 93 09/07/18 14:29 09/07/18 21:07 09/07/18 21:07 09/07/18 21:07 09/07/18 21:07 Oxygen Delivery Method Room Air Weight: 175 lb Body Mass Index (BMI) 27.3 Laboratory Tests Past 24 Hrs WBC 6.3 RBC 4.95 Hgb 13.6 Hct 41.3 MCV 83.4 MCH 27.5 MCHC 32.9 Assessment/Plan All Active Problems (Last Updated 02/23/18 @ 10:47 by Meghna Monahan) Migraine (Acute) Chest pain (Acute) Facial ringworm (Acute) Compression fracture of L5 lumbar vertebra (Acute) The patient is a 58 y/o F w/ PMHx: OA, Hypothyroidism, Hx Thyroid CA s/p resection, Anxiety and Depression, Hx Tobacco use who presents to the [facility] ED on 09/07/18 with history of intractable headache, diffuse, gradual onset today with nausea and emesis w/ associated with light and sound sensitivity. (1) Suspected Acute Persistent Intractable Migraine: Will admit to PCU given concurrent atypical chest pain, hold narcotic therapy give this may exacerbate migraine, initiate IV VPA 500mg Q6 hours, IV Decadron 4mg Q6 hours, IV Toradol 30mg Q6 hours prn and PO Neurontin 300mg TID with meals. If patient WILCOX does not improve will proceed with MRI of brain with MRA of head. Neurology consulted, pending. (3) Atypical Chest Pain: EKG in ED no acute evidence of ischemia, CTPA not marked appearing, initial trop normal x 1. Given atypical presentation, less suspicious for cardiac etiology. To be cautious, will place on a monitored bed to assure no acute myocardial infarction with serial cardiac enzymes and EKGs. ASA, NG. (4) Recent L Hammertoe Surgery: Recent L foot surgery per Dr. Mukherjee, WBAT w/ boot in place, continue to follow-up as previously arranged per Dr. Mukherjee. (5) Anxiety and Depression: Not on regimen, encourage outpatient evaluation and treatment. (6) Hypothyroidism: Hx Thyroid CA s/p resection. Continue home synthroid regimen, TSH and FT4 pending. (7) Allergic Rhintis: Continue home loratadine regimen. (8) GERD: Famotidine. (9) DVT Prophylaxis: SCDs, lovenox. Code Visit OBSV E AND M: 13906 Initial observation care L3 09/07/18 [id number] <Electronically signed by Kisha Farah MD> Date Kisha Mohamud Signature: Date (if applicable) CC: CLINIC MANAGER Jessica Ghoshcarolee; Kisha Farah MD Signed Jessica Yadira Start: 09-07-2018 End: 09-07-2018 Abdomen/Pelvis W IV Cont ONLY Comments: See Note; NOTES: [facility] Imaging Services [address] [place] [address] Abdomen/Pelvis W IV Cont ONLY MR#: [id number] Acct: [id number] Name: PINA ORTEGA Rep #: [id number] : 1960 F 58 From: Peterson Nugent MD PCP: Jessica May NP Status: REG ER Study: Abdomen/Pelvis W IV Cont ONLY Date of Exam: 09/07/18 Exam# [id number] Ordering Dr: Amanda Ramírez MD STUDY: CT ABDOMEN AND PELVIS WITH CONTRAST REASON FOR EXAM: Female, 58 years old. Chest pain RADIATION DOSAGE (If Supplied By Facility): DLP = ( 3311.24 ) mGycm TECHNIQUE: Transaxial images were obtained from the dome of the diaphragm to the symphysis pubis without oral contrast. 100 ml of Isovue 370 contrast was administered. Sagittal and coronal images were reconstructed. Individualized dose optimization techniques were used for this CT. COMPARISON: None. FINDINGS: Bibasilar atelectasis is present. The visualized portions of the heart and pericardium are within normal limits. There are no calcified gallstones present. The liver is within normal limits. There are no suspicious hepatic lesions. The spleen is normal in size. The pancreas is within normal limits. The adrenal glands are within normal limits. There are no obstructing renal stones. There is no hydronephrosis. Bilateral renal cysts are present, the largest on the right measuring 1.5 cm. There is a small hiatal hernia. There is no bowel obstruction or inflammation. Colonic diverticulosis is present. The appendix is normal. The aorta is normal in caliber. There is no abdominal or pelvic free air, free fluid, fluid collection or lymphadenopathy. There are no destructive osseous lesions. Scattered partial compression fractures are present in the visualized thoracic and lumbar spine. CT/Abdomen/Pelvis W IV Cont ONLY IMPRESSION: No acute abdominal or pelvic pathology. Nonacute findings as described above. Electronically Signed: Peterson Nugent, at 18:09 EDT Tel , Service support , CC: COLETTE May; Amanda Ramírez MD Strategic Planner: Signed Jessica May Start: 09-07-2018 End: 09-07-2018 CTA Chest W/WO Contrast Comments: See Note; NOTES: [facility] Imaging Services [address] [place] [address] CTA Chest W/WO Contrast MR#: [id number] Acct: [id number] Name: PINA ORTEGA Rep #: [id number] : 1960 F 58 From: Peterson Nugent MD PCP: Jessica May NP Status: REG ER Study: CTA Chest W/WO Contrast Date of Exam: 09/07/18 Exam# [id number] Ordering Dr: Amanda Ramírez MD STUDY: CTA CHEST REASON FOR EXAM: Female, 58 years old. Chest pain RADIATION DOSAGE (If Supplied By Facility): CTDIvol = ( 20.34 ) mGy, DLP = ( 3311.24 ) mGycm TECHNIQUE: The examination was performed with the intravenous administration of 100 IV Isovue 370. Post-processing of the angiographic images was performed, with multiplanar reformation and 3D reconstruction. Individualized dose optimization techniques were used for this CT. COMPARISON: None. FINDINGS: Normal enhancement of the main pulmonary artery and right and left pulmonary arteries. Normal enhancement of the bilateral peripheral pulmonary arteries. There is no demonstrated pulmonary embolism. Normal thoracic aorta and visualized great vessels. There is no demonstrated aortic dissection. Normal heart and pericardium. Normal mediastinum. Normal hilar regions. Normal visualized trachea and bronchi. The lungs are well expanded. There is no consolidation. Bibasilar atelectasis is present. Normal pleura. Normal chest wall structures. Several partial compression fractures of the thoracic spine are visualized. There is a small hiatal hernia. CT/CTA Chest W/WO Contrast IMPRESSION: No evidence of pulmonary embolism. Bibasilar atelectasis. No consolidation. Small hiatal hernia. Several partial compression fractures of the thoracic spine. Electronically Signed: Peterson Nugent, at 18:02 EDT Tel , Service support , CC: COLETTE May; Amanda Ramírez MD Strategic Planner: Signed Jessica aMy Start: 09-07-2018 End: 09-07-2018 CTA Head W/WO Contrast Comments: See Note; NOTES: [facility] Imaging Services [address] [place] [id number] CTA Head W/WO Contrast MR#: [id number] Acct: [id number] Name: PINA ORTEGA Rep #: [id number] : 1960 F 58 From: Anita Gonzalez MD PCP: Jessica May NP Status: REG ER Study: CTA Head W/WO Contrast Date of Exam: 09/07/18 Exam# [id number] Ordering Dr: Amanda Ramírez MD STUDY: CTA OF THE BRAIN REASON FOR EXAM: Female, 58 years old. RADIATION DOSAGE (If Supplied By Facility): CTDIvol = ( 20.34 ) mGy, DLP = ( 3311.24 ) mGycm TECHNIQUE: CT angiography was performed with a multi-detector CT scanner. Data acquisition was obtained from the skull base through the vertex following intravenous administration of 100 IV Isovue 370. MIP images were reconstructed from the axial data set. Post-processing of the angiographic images was performed, with multiplanar reformation and 3D reconstruction. Individualized dose optimization techniques were used for this CT. COMPARISON: None. FINDINGS: Normal bilateral petrous carotid arteries. Normal right cavernous carotid artery with a normal supraclinoid bifurcation. Normal left cavernous carotid artery with a normal supraclinoid bifurcation. Normal right A1 segments of the anterior cerebral artery. Normal left A1 segments of the anterior cerebral artery. Normal intact anterior communicating artery (ACOM). Normal bilateral A2 segments of the anterior cerebral arteries. Normal right M1 and M2 segments of the middle cerebral arteries, with a normal M1 bifurcation. Normal left M1 and M2 segments of the middle cerebral arteries, with a normal M1 bifurcation. Normal right posterior communicating artery (PCOM). Normal left posterior communicating artery (PCOM). Normal bilateral vertebral arteries. Normal basilar artery with a normal basilar bifurcation. The visualized bilateral superior cerebellar (SCA) arteries are normal. Normal bilateral P1, P2 and visualized P3 segments of the posterior cerebral arteries. There is no demonstrated aneurysm of the the [place] of [place]. There is no demonstrated abnormality of the visualized brain. Brain parenchyma is intact without focal lesions, mass effect, midline shift, extra-axial brain tumor fluid collections, acute intracranial hemorrhage, hydrocephalus or herniation. The skull is intact. CT/CTA Head W/WO Contrast IMPRESSION: Normal the [place] without a demonstrated aneurysm or hemodynamically significant stenosis. Normal CT head. Electronically Signed: Anita Gonzalez, at 18:02 EDT Tel , Service support , CC: COLETTE May; Amanda Ramírez MD Strategic Planner: Signed Jessica May Start: 09-07-2018 End: 09-07-2018 CTA Neck W/WO Contrast Comments: See Note; NOTES: [facility] Imaging Services [address] [place] [address] CTA Neck W/WO Contrast MR#: [id number] Acct: [id number] Name: PINA ORTEGA Rep #: [id number] : 1960 F 58 From: Anita Gonzalez MD PCP: Jessica May NP Status: REG ER Study: CTA Neck W/WO Contrast Date of Exam: 09/07/18 Exam# [id number] Ordering Dr: Amanda Ramírez MD STUDY: CTA NECK WITH CONTRAST REASON FOR EXAM: Female, 58 years old. Chest pain nausea vomiting RADIATION DOSAGE (If Supplied By Facility): CTDIvol = ( 20.34 ) mGy, DLP = ( 3311.24 ) mGycm TECHNIQUE: CT angiography with multi-detector data acquisition was performed from the aortic arch to the skull base following intravenous administration of 100 IV Isovue 370. MIP images were reconstructed from the axial data set. Post-processing of the angiographic images was performed, with multiplanar reformation and 3D reconstruction. Individualized dose optimization techniques were used for this CT. COMPARISON: None. FINDINGS: AORTIC ARCH: Normal visualized aortic arch. Normal origins of the brachiocephalic, left common carotid, and left subclavian arteries. RIGHT CAROTID ARTERIES: Normal right common carotid artery (CCA). Normal right common carotid bulb. Normal origin of the right internal carotid (ICA) artery without a hemodynamically significant stenosis. Normal visualized cervical portion of the right internal carotid artery. Normal origin of the right external carotid artery (ECA). LEFT CAROTID ARTERIES: Normal left common carotid artery (CCA). Normal left common carotid bulb. Normal origin of the left internal carotid (ICA) artery without a hemodynamically significant stenosis. Normal visualized cervical portion of the left internal carotid artery. Normal origin of the left external carotid artery (ECA). VERTEBRAL ARTERIES: Normal bilateral vertebral arteries. Left thyroid lobe is surgically resected. Right hemilobe is mildly heterogeneous and enlarged, without dominant lesion. There are degenerative changes in the cervical spine, age-appropriate. Jugular veins are patent. Airway is patent. CT/CTA Neck W/WO Contrast IMPRESSION: Normal bilateral cervical carotid and vertebral arteries. Electronically Signed: Anita Gonzalez, at 18:03 EDT Tel , Service support , CC: COLETTE May; Amanda Ramírez MD Strategic Planner: Signed Jessica May Start: 02-23-2018 End: 02-23-2018 Urgent Care Visit Report Comments: See Note; NOTES: [facility] [address] [place] [address] [address] [place] [address] OFFICE VISIT Date of Service: 02/23/18 MR#: [id number] Acct: [id number] Name: PINA ORTEGA Rep #: [id number] : 1960 Provider: Mario SHERIFF Age/Sex: 57/F Location: [facility] Status: Signed Intake Vital Signs02/23/18 Height 5 ft 7 in Intake Visit Reasons: RASH ON FOREHEAD Allergies No Known Allergies Allergy (Verified 02/23/18 10:44) Medications Levothyroxine [Synthroid] 75 mcg PO DAILY 09/22/15 [History Confirmed 02/23/18] Paroxetine HCl [Paxil] 40 mg PO DAILY 09/22/15 [History Confirmed 02/23/18] Meloxicam [Mobic] 7.5 mg PO DAILY 01/14/16 [History Confirmed 02/23/18] Gabapentin [Neurontin] 100 mg PO BID 07/22/17 [History Confirmed 02/23/18] PFSH Medical History Back pain (Acute) Cancer (Acute) Knee pain (Acute) Shoulder pain (Acute) Thyroid disease (Acute) H/O: hysterectomy (Acute) Social History Smoking Status: Former smoker alcohol intake: never HPI HPI Details: PINA ORTEGA, is a 57 F who presents to the office today for complaint of a rash to her forehead for the past week. Patient states that she originally believed there was a pimple between her eyes on her forehead but states that the area has grown since then. She states that it does itch somewhat however is not painful. She has had no known ill contacts. No fever, chills, sweats. No other associated symptoms or alleviating/aggravating factors. ROS Const Constitutional: No chills, fever(s), fatigue or abnormal sleep pattern Skin Skin: Positive for rash and itching; no wounds or lesions Neuro Neurology: No behavioral changes or confusion Psych Psychiatric: No behavioral changes, No confusion, No abnormal sleep pattern Endo Endocrine: No fatigue Aller/Imm Allergy/Immunologic: Positive for itchy eyes Exam Const General: cooperative, healthy appearing [facility] Head: normocephalic, atraumatic Ears: hearing grossly normal bilaterally Nose: external nose normal Face and sinus: face symmetric, normal facial exam Mouth: oral mucosae normal Throat: posterior oropharynx normal Eyes General: appearance normal, both eyes and all related structures Pupils: PERRL Skin Other: Skin lesion to forehead with raised border and central clearing. Neuro General: alert, CN's II-XI intact bilaterally Psych Appearance: grossly normal Mental Status: mental status grossly normal Assessment AND Plan Problems 1. Facial ringworm B35.8 Status Acute Plan OTC antifungal 3x daily for 7 days after no visual rash. Advised to follow up with pcp in 10-14 days if no improvement or sooner if worsening. Advised of potential red flags and when appropriate to report to the ED. Patient verbalized understanding and agreement with all of the above. Coding Level of Care Code Off vis,new,level 3 Diagnoses Facial ringworm B35.8 02/23/18 1141 <Electronically signed by Mario SHERIFF> Date Mario SHERIFF Cosigner Signature: Date (if applicable) CC: Jessica May Start: 10-18-2017 End: 10-20-2017 Orthopedic Visit Report Comments: See Note; NOTES: [facility] [address] [place] [address] OFFICE VISIT Date of Service: 10/07/17 MR#: [id number] Acct: [id number] Name: PINA ORTEGA Rep #: [id number] : 1960 Provider: Vickie Aviles MD Age/Sex: 57/F Location: [facility] Status: Signed Intake Intake Visit Reasons: Cervical pain Is patient in pain?: Yes Pain scale (1-10): 9 Allergies No Known Allergies Allergy (Verified 10/07/17 10:03) Medications Levothyroxine [Synthroid] 75 mcg PO DAILY 09/22/15 [History Confirmed 10/07/17] Paroxetine HCl [Paxil] 40 mg PO DAILY 09/22/15 [History Confirmed 10/07/17] Cholecalciferol (Vitamin D3) [Vitamin D3] 50,000 unit PO QWEEK 01/14/16 [History Confirmed 10/07/17] Meloxicam [Mobic] 7.5 mg PO DAILY 01/14/16 [History Confirmed 10/07/17] Tizanidine HCl [Zanaflex] 4 mg PO TID PRN PRN 02/09/17 [History Confirmed 10/07/17] Gabapentin [Neurontin] 100 mg PO BID 07/22/17 [History Confirmed 10/07/17] Hydrocodone/Acetaminophen [Hydrocodon-Acetaminophen 5-325] 1 ea PO BID PRN 07/22/17 [History Confirmed 10/07/17] Meclizine HCl [Antivert] 25 mg PO 4X/DAY PRN PRN #20 tab 07/22/17 [Rx Confirmed 10/07/17] Ondansetron [Zofran Odt] 4 mg PO Q8H PRN PRN #10 tab 07/22/17 [Rx Confirmed 10/07/17] Teriparatide [Forteo] 20 mcg SQ DAILY 07/22/17 [History Confirmed 10/07/17] PFSH Surgical History H/O: hysterectomy (Acute) Social History Smoking Status: Former smoker HPI Pain of cervical spine: Details: PINA ORTEGA is a 57 year old RHD F here today for referred by Dr Lovelace for cervical spine pain. She states that she has had cervical spine pain since 2012 with no known injury. Her pain is midline and into her bilateral traps, left greater than right. Patient has left anterior arm, dorsal forearm and all fingers numbness and tingling. She has 99% neck pain and 1% arm paresthesias. Her pain is worse with driving and holding up her head. It is improved with leaning back and using neck support. She had physical therapy a few months ago and tried traction, which helped. She does not have a home traction unit. She is on mobic and norco. She denies difficulty with hand dexterity or bowel or bladder issues. She uses a cane for many years. She has had no spine surgeries. She has had cervical injections with Dr Lovelace and had a right sided cervical spine injection which she states was not helpful. She has a history of thyroid cancer s/p surgery and osteoporosis, for which she is on forteo. She is disabled. She denies nicotine use. ROS Const Reports system reviewed and no additional complaints, except as docu Eyes Reports system reviewed and no additional complaints, except as docu ENT Reports system reviewed and no additional complaints, except as docu and neck pain Card Reports system reviewed and no additional complaints, except as docu Resp Reports system reviewed and no additional complaints, except as docu GI Reports system reviewed and no additional complaints, except as docu Reports system reviewed and no additional complaints, except as docu Musc Reports muscle weakness, Reports neck pain, Reports numbness Skin/Breast Reports system reviewed and no additional complaints, except as docu Neuro Yes system reviewed and no additional complaints, except as docu, Yes numbness Psych Reports system reviewed and no additional complaints, except as docu Endo Reports system reviewed and no additional complaints, except as docu Ortho Exam Spine Neuro: Yes Clonus (none bilaterally), Spurling's (negative bilaterally), Lundberg's (positive bilaterally) and Babinski (downgoing bilaterally) General: alert, oriented x3 Skin: Yes surgical scars (right paraspinal posterior scar due to cyst resection 1982) Capillary Refill <2sec: Yes Palpable Pulses: 2+ dp/pt pulses Gait: antalgic (due to back pain), other (able to heel and toe stand. normal tandem gait) Motor: strength 5/5 throughout Sensory Exam: no sensory deficits noted DTR's: Rt Triceps: 2+, Lt Triceps: 2+, Rt Biceps: 2+, Lt Biceps: 2+, Rt Brachioradialis: 2+, Lt Brachioradialis: 2+, Rt Patellar: 2+, Lt Patellar: 2+, Rt Ankle: 2+, Lt Ankle: 2+ Plantar Reflexes: Downgoing: bilateral Coordination: tandem gait normal, Romberg test normal SPINE TESTING CERVICAL THORACIC LUMBAR Musculoskeletal General: Yes normal posture Cervical Spine: cervical muscular tenderness, pain with cervical ROM, scars present, cervical ROM abnormal (limited due to pain), other (hyperesthesia of posterior neck) Thoracic/Lumbar Spine: paraspinal tenderness, pain with thoraco-lumbar ROM Strength 0=absent - 5=normal Deltoid R (C5): 5, Deltoid L (C5): 5, R Bicep (C5-6): 5, L Bicep (C5-6): 5, R Wrist Extensor (C6): 5, L Wrist Extensor (C6): 5, R Tricep (C7): 5, L Tricep (C7): 5, R Finger Flexors (C8): 5, L Finger Flexors (C8): 5, R First Dorsal Interossei (C8): 5, L First Dorsal Interossei (C8): 5, R Hip Flexor (L1-3): 5, L Hip Flexor (L1-3): 5, R Quadriceps (L2-4): 5, L Quadriceps (L2-4): 5, R Anterior Tibialis (L4-5): 5, L Anterior Tibialis (L4-5): 5, R Hamstrings (L5-S1): 5, L Hamstrings (L5-S1): 5, GS (S1): 5, L GS (S1): 5, R Peroneals (S1): 5, L Peroneals (S1): 5 Assessment AND Plan 1. Pain of cervical spine M54.2 Orders Orders: 2. Neck pain M54.2 Plan Imaging: XR cervical spine 10/07/2017 diffuse spondylosis MRI cervical spine CD 06/12/2017 reveals diffuse spondylosis with left C5-6 foraminal stenosis. No signfiicant central stenosis DEXA 09/25/2017 L spine T score -3.5, left hip/femur T score -2.7/-2.8, right hip/femur T score -3.0/-2.9 I/R/P: 1. neck pain 2. mild left arm pain 3. headaches 4. osteoporosis on forteo 5. history of thyroid cancer Ms. Ortega presents with the greatest complaint of neck pain. She has minimal left arm complaints. The natural history and course of the symptomatology of cervical spondylosisi was discussed in detail with the patient. I answered all questions regarding the mode of onset, pathophysiology, symptoms, imaging findings, treatment options (both non-operative and operative) regarding her diagnosis. Recommend continued conservative treatment, to include physical therapy for desensitization and pain management per Dr. Lovelace. Follow up as needed. Plan of care discussed. All questions answered. The patient verbalized understanding of the disease process and agreed to the treatment plan formulated for this visit. Orders Orders: Coding Level of Care Code Off vis,new,level 4 Diagnoses Pain of cervical spine M54.2 Neck pain M54.2 10/18/17 1013 <Electronically signed by Vickie Aviles MD> Date Vickie Aviles MD Cosigner Signature: Date (if applicable) CC: Peterson May Start: 10-07-2017 End: 10-07-2017 Cerv Spine 4 or 5 Views Comments: See Note; NOTES: [facility] Imaging Services [address] [place] [address] Cerv Spine 4 or 5 Views MR#: [id number] Acct: [id number] Name: PINA ORTEGA Rep #: [id number] : 1960 F 57 From: Rodney Humphries DO PCP: Jessica May NP Status: REG CLI Study: Cerv Spine 4 or 5 Views Date of Exam: 10/07/17 Exam# [id number] Ordering Dr: Vickie Aviles MD STUDY: X-RAY - CERVICAL SPINE REASON FOR EXAM: Female, 57 years old. Neck pain, decreased range of motion TECHNIQUE: 4 view(s) of the cervical spine were obtained. An AP view is supplemented by lateral views in neutral, flexion, and extension. COMPARISON: None FINDINGS: There are degenerative changes of the anterior atlantoaxial articulation. Normal odontoid process. Normal cervical lordosis. There is multi-level endplate spondylosis. There is multi-level degenerative disc disease with multilevel disc space narrowing. This is greatest at C5-C6. There is decreased flexion. Surgical clips are seen in the neck suggesting previous thyroid surgery. RAD/Cerv Spine 4 or 5 Views IMPRESSION: Degenerative changes, as described above. Electronically Signed: Rodney Humphries DO at 12:22 EDT Tel , Service support , CC: Jessica May NP; Vickie Aviles MD Strategic Planner: Signed Abby Glen Work Phone: Start: 09-25-2017 End: 09-26-2017 Dexa Bone Density Study Comments: See Note; NOTES: [facility] Imaging Services [address] [place] [address] Dexa Bone Density Study MR#: [id number] Acct: [id number] Name: PINA ORTEGA Rep #: [id number] : 1960 F 57 From: Coleman Sutton MD PCP: Jessica May NP Status: REG CLI Study: Dexa Bone Density Study Date of Exam: 09/25/17 Exam# [id number] Ordering Dr: Jessica May STUDY: DUAL ENERGY X-RAY ABSORPTIOMETRY / DXA REASON FOR EXAM: Female, 57 years old. The patient is postmenopausal. Loss of height. TECHNIQUE: Bone Mineral Density (BMD) measurements of lumbar spine and bilateral hips were obtained. COMPARISON: Comparison is made with prior study dated April 19, 2014. FINDINGS: Lumbar Spine (L1-L4): g/cm2 (0.765) / T-score (-3.5) / Z-score (-2.5) Findings are suggestive of osteoporosis with a high fracture risk. Left Femur Total: g/cm2 (0.664) / T-score (-2.7) / Z-score (-1.9) Left Femoral Neck: g/cm2 (0.653) / T-score (-2.8) / Z-score (-1.6) Right Femur Total: g/cm2 (0.628) / T-score (-3.0) / Z-score (-2.2) Right Femoral Neck: g/cm2 (0.641) / T-score (-2.9) / Z-score (-1.7) The T-Scores on the most recent prior examination were: Lumbar Spine (L1-L4): There has been improvement of bone density since the previous examination. Left Femur Total: which represents a worsening of 1.3%. Right Femur Total: which represents a worsening of 4.4%. BD/Dexa Bone Density Study IMPRESSION: The patient is considered osteoporotic as outlined below according to World Mani Organization (WHO) criteria with a high fracture risk. There has been worsening of bone density since the previous examination. Reference Information: The T-score is the number of standard deviations above or below the standard which is normal for young adults at their peak bone mineral density. The World Health Organization (WHO) interprets the T-scores as follows: Above -1 Normal bone density Between -1 and -2.5 Osteopenia Equal to / or below -2.5 Osteoporosis As a practical clinical guideline, osteopenia may be graded as follows: Mild -1 through -1.5 Moderate -1.6 through -2.0 Severe -2.1 through -2.4 The Z-score is the number of standard deviations above or below age-matched controls. A Z-score of less than -1.5 would be considered abnormal. References: 1. NIH Osteoporosis and Related Bone Diseases http://www.osteo.org 2. International Society for Clinical Densitometry http://www.iscd.org 3. National Osteoporosis Foundation http://www.nof.org Electronically Signed: Coleman Sutton MD at 8:59 EDT Tel [phone], Service support , CC: Jessica May NP Strategic Planner: Signed Jessica May Work Phone: Start: 09-25-2017 End: 09-26-2017 SCREENING MAMM (CAD), BILAT Comments: See Note; NOTES: [facility] Imaging Services [address] [place] [address] SCREENING MAMM (CAD), BILAT MR#: [id number] Acct: [id number] Name: PINA ORTEGA Rep #: [id number] : 1960 F 57 From: Coleman Sutton MD PCP: Jessica May NP Status: REG CLI Study: SCREENING MAMM (CAD), BILAT Date of Exam: 09/25/17 Exam# [id number] Ordering Dr: Jessica May MAMMOGRAPHY - BILATERAL SCREENING REASON FOR EXAM: Female, 57 years old. Routine annual screening examination. PERTINENT HISTORY: Non-contributory. Remote right excisional breast biopsy. TECHNIQUE: Digital bilateral breast veronica (3D mammographic acquisition) in the CC and MLO projections. 2-D mediolateral oblique (MLO) and craniocaudad (CC) views of both breasts were obtained. CAD: Full Field Digital Mammography with Computer Added Detection was performed. COMPARISON: Comparison is made with prior outside examination dated September 11, 2016. FINDINGS: Breast Composition: There are scattered areas of fibroglandular density. There are no dominant masses or suspicious calcifications. Stable focal area of architectural distortion in the upper outer quadrant of the right breast in keeping with the history of prior excisional biopsy. No other significant abnormalities are identified. There has been no significant change since the prior study. BI/SCREENING MAMM (CAD), BILAT IMPRESSION: Stable bilateral screening mammogram. Yearly follow-up mammogram recommended. (A) ASSESSMENT CATEGORY: BIRADS Category 2: Benign. A letter regarding these results will be sent to the patient by the facility within 30 days. Approximately 10% of breast cancers are not detected by mammography. A normal mammogram should not delay biopsy of a clinically suspicious abnormality. [id number] Electronically Signed: Coleman Sutton MD at 15:47 EDT Tel [phone], Service support , CC: Jessica May NP Strategic Planner: Signed Jessica May Work Phone: Start: 09-25-2017 End: 09-26-2017 Thyroid Comments: See Note; NOTES: [facility] Imaging Services [address] [place] [address] Thyroid MR#: [id number] Acct: [id number] Name: PINA ORTEGA Rep #: [id number] : 1960 F 57 From: Rodeny Humphries DO PCP: Jessica May NP Status: REG CLI Study: Thyroid Date of Exam: 09/25/17 Exam# [id number] Ordering Dr: Jessica May STUDY: THYROID ULTRASOUND REASON FOR EXAM: Female, 57 years old. History of thyroid cancer, left lobe has been removed. TECHNIQUE: Ultrasound evaluation of the thyroid was performed with real-time and static john-scale imaging. COMPARISON: 08/26/2013 FINDINGS: RIGHT LOBE: The right lobe of the thyroid gland measures 4.5 x 1.5 x 1.1 cm. There is a homogeneous echotexture. There are 2 tiny hypoechoic/anechoic structures within the right lobe of the thyroid gland, potentially small colloid cysts. These measure no greater than 3 mm in dimension. LEFT LOBE: The left lobe of the thyroid gland has been removed. ISTHMUS: The isthmus measures 2 mm. There is a lymph node within the left thyroid fossa, measuring approximately 9 mm in length. US/Thyroid IMPRESSION: The left lobe of the thyroid gland has been resected. There are 2 tiny hypoechoic/anechoic nodules within the right lobe of the thyroid, which may represent colloid cyst. These measure no greater than 3 mm. Small lymph node in the left side of the neck measuring 9 mm. Electronically Signed: Rodney Humphries DO at 12:55 EDT Tel , Service support , CC: Jessica May NP Strategic Planner: Signed Jessica May Work Phone: Lumpectomy of breast Eduin Brown Comment on above: Right. breast biopsy -2012 Lumpectomy of breast Eduin Campoverde Comment on above: Right. breast biopsy -2012 Lumpectomy of breast Eduin Campoverde LPN Comment on above: Right. breast biopsy -2012 Lumpectomy of breast Eduin Campoverde LPN Comment on above: Right. breast biopsy -2012 Lumpectomy of breast Eduin Campoverde LPN Comment on above: Right. breast biopsy -2012 Lumpectomy of breast Radha kinsey [employer] Comment on above: Right. breast biopsy -2012 Lumpectomy of breast Kalie Diego [employer] Comment on above: Right. breast biopsy -2012 Tonsillectomy Debra roy Comment on above: 1979 Tonsillectomy Eduin Brown Comment on above: 1979 Tonsillectomy Eduin Brown Comment on above: 1979 Tonsillectomy Safia roy Comment on above: 1979 Tonsillectomy Kalie Cortez Comment on above: 1979 Tonsillectomy Safia roy Comment on above: 1979 Tonsillectomy Eduin Brown Comment on above: 1979 Tonsillectomy Eduin Campoverde Comment on above: 1979 Tonsillectomy Eduin BAUM Comment on above: 1979 Tonsillectomy Eduin Gilles L PN Comment on above: 1979 Tonsillectomy Eduin Gilles L PN Comment on above: 1979 Tonsillectomy Radha Jorge L [employer] Comment on above: 1979 Tonsillectomy Kalie Slarb L PN Comment on above: 1979 Total hysterectomy Eduin Da vis Comment on above: - 2000 Total hysterectomy Eduin Da vis [employer] Comment on above: - 2000 Total hysterectomy Eduin Da vis [employer] Comment on above: - 2000 Total hysterectomy Eduin Da vis [employer] Comment on above: - 2000 Total hysterectomy Radha Cof fman [employer] Comment on above: - 2000 Total hysterectomy Kalie Sl arb [employer] Comment on above: - 2000 Total thyroidectomy Debra L ocklear Comment on above: Left. dr staples-- 20 Total thyroidectomy Eduin S mith Comment on above: Left. dr staples-- 20 Total thyroidectomy Eduin S mith Comment on above: Left. dr staples-- 20 Total thyroidectomy Safia Hoffman Comment on above: Left. dr staples-- 20 Total thyroidectomy Kalie S larb Comment on above: Left. dr staples-- 20 Total thyroidectomy Safia Hoffman Comment on above: Left. dr staples-- 20 Total thyroidectomy Eduin S mith Comment on above: Left. dr staples-- 20 Total thyroidectomy Eduin Whittaker matteo Comment on above: Left. dr staples-- 20 Total thyroidectomy Eduin Whittaker matteo [employer] Comment on above: Left. dr staples-- 20 Total thyroidectomy Eduin Whittaker matteo [employer] Comment on above: Left. dr staples-- 20 Total thyroidectomy Eduin Whittaker matteo [employer] Comment on above: Left. dr staples-- 20 Total thyroidectomy Radha Co ffman [employer] Comment on above: Left. dr staples-- 20 Total thyroidectomy Kalie S larb [employer] Comment on above: Left. dr staples-- 20 Tylectomy Debra Jany Comment on above: Right. breast biopsy -2012 Tylectomy Eduin Brown Comment on above: Right. breast biopsy -2012 Tylectomy Eduin Brown Comment on above: Right. breast biopsy -2012 Tylectomy Safia Hoffman Comment on above: Right. breast biopsy -2012 Tylectomy Kalie Cortez Comment on above: Right. breast biopsy -2012 Tylectomy Safia Hoffman Comment on above: Right. breast biopsy -2012 Vaginal hysterectomy Debra Marslear Comment on above: - 2000 Vaginal hysterectomy Eduin Brown Comment on above: - 2000 Vaginal hysterectomy Eduin Brown Comment on above: - 2000 Vaginal hysterectomy Safia Hoffman Comment on above: - 2000 Vaginal hysterectomy Kalie Cortez Comment on above: - 2000 Vaginal hysterectomy Safia Hoffman Comment on above: - 2000 Vaginal hysterectomy Eduin Brown Comment on above: - 2000 Vaginal hysterectomy Eduin Campoverde Comment on above: - 2000 Plan of Treatment Date Care Activity Detail Author Start: 06-08-2024 Patient referral [facility] Work Phone: Start: 10-01-2021 Procedure Education Eprescribe d prescriptions (G8553) [facility] Work Phone: Start: 10-01-2021 Provider Instruction s for Treatment Follow up in 1 month [facility] Work Phone: Start: 10-01-2021 Assay of thyroid stimulating hormone tsh TSH (THYROID STIMULATING HORMONE) (45087) [facility]; [facility] Work Phone: Comment on above: prior to next ov Start: 09-25-2021 Patient discharge [facility] Work Phone: Start: 09-24-2021 Assessment of risk o f venous thromboembolism [facility] Work Phone: Start: 09-24-2021 Insertion of cathete r into peripheral vein [facility] Work Phone: Start: 09-24-2021 Oxygen therapy [facility] Work Phone: Start: 09-24-2021 Providing care accor ding to standard [facility] Work Phone: Start: 09-24-2021 Provision of activit y privileges [facility] Work Phone: Start: 09-24-2021 Referral to service [facility] Work Phone: Start: 09-24-2021 [facility] Work Phone: Start: 09-24-2021 Following clinical pathway protocol [facility] Work Phone: Start: 09-24-2021 Verification routine [facility] Work Phone: Start: 09-24-2021 [facility]mission procedure [facility] [place] Phone: Start: 09-24-2021 [facility] Work Phone: Start: 02-27-2021 Procedure Education Eprescribe d prescriptions (G8553) [facility] Work Phone: Start: 02-20-2021 Procedure Education Eprescribe d prescriptions (G8553) [facility] Work Phone: Start: 02-20-2021 Provider Instruction s for Treatment Follow up in 1 week for virtual [facility] Work Phone: Start: 09-14-2020 Comprehensive metabo lic panel Metabolic Panel, Comprehensive (22145) [facility]; [facility] Work Phone: Start: 09-14-2020 Lipid panel LIPID PANEL (74701) [facility]; [facility] Work Phone: Start: 08-25-2020 Procedure Education [facility]; [facility] Work Phone: Start: 08-25-2020 Provider Instruction s for Treatment [facility]; [facility] Work Phone: Start: 08-16-2020 Procedure Education Eprescribe d prescriptions (G8553) [facility]; [facility] Work Phone: Start: 08-16-2020 Provider Instruction s for Treatment [facility]; [facility] Work Phone: Start: 07-31-2020 Procedure Education Eprescribe d prescriptions (G8553) [facility]; [facility] Work Phone: Start: 07-31-2020 Provider Instruction s for Treatment [facility]; [facility] Work Phone: Start: 07-18-2020 Comprehensive metabo lic panel METABOLIC PANEL, COMPREHENSIVE (09931) [facility]; [facility] Work Phone: Start: 07-18-2020 Lipid panel LIPID PANEL (03914) [facility]; [facility] Work Phone: Start: 07-18-2020 Assay of thyroid stimulating hormone tsh TSH (THYROID STIMULATING HORMONE) (68576) [facility]; [facility] Work Phone: Start: 07-18-2020 Blood count complete auto&auto difrntl wbc CBC, PLATELETS & AUT DIFF (59806) [facility]; [facility] Work Phone: Start: 01-17-2020 Procedure Education Eprescribe d prescriptions (G8553) [facility] Work Phone: Start: 01-17-2020 Provider Instruction s for Treatment [facility] Work Phone: Start: 01-17-2020 25 hydroxy includes fractions if performed CALCIFEDIOL (36073) [facility] Work Phone: Comment on above: Apr 2020 Start: 09-29-2019 Procedure Education Eprescribe d prescriptions (G8553) [facility] Work Phone: Start: 09-29-2019 Provider Instruction s for Treatment Follow up in 3 months [facility] Work Phone: Start: 09-29-2019 TSH Qn TSH (THYROID STIMULATING HORMONE) (76896) [facility] Work Phone: Comment on above: Dec 2019 Start: 09-29-2019 Comprehensive metabo lic panel Metabolic Panel, Comprehensive (59906) [facility] Work Phone: Comment on above: Dec 2019 Start: 05-21-2019 Procedure Education Eprescribe d prescriptions (G8553) [facility] Work Phone: Start: 05-21-2019 Provider Instruction s for Treatment [facility] Work Phone: Start: 05-05-2019 Procedure Education Eprescribe d prescriptions (G8553) [facility] Work Phone: Start: 05-05-2019 Provider Instruction s for Treatment Follow up in 2 weeks [facility] Work Phone: Start: 05-05-2019 Natriuretic peptide BNTP (06907) [facility] Work Phone: Start: 05-05-2019 Fibrin dgradj produc ts d-dimer quantitative D-Dimer (72406) [facility] Work Phone: Start: 11-27-2018 Procedure Education Eprescribe d prescriptions (G8553) [facility] Work Phone: Start: 11-27-2018 Provider Instruction s for Treatment Follow up in 3 months [facility] Work Phone: Start: 11-27-2018 TSH Qn TSH (THYROID STIMULATING HORMONE) (17148) [facility] Work Phone: Start: 10-20-2018 Procedure Education Eprescribe d prescriptions (G8553) [facility] Work Phone: Start: 10-20-2018 Provider Instruction s for Treatment Follow up in 3 months [facility] Work Phone: Start: 09-14-2018 Procedure Education Eprescribe d prescriptions (G8553) [facility] Work Phone: Start: 09-14-2018 Provider Instruction s for Treatment Follow up in 3 weeks [facility] Work Phone: Start: 07-13-2018 Procedure Education Eprescribe d prescriptions (G8553) [facility] Work Phone: Start: 07-13-2018 Provider Instruction s for Treatment Follow up in 3 months [facility] Work Phone: Start: 07-13-2018 Comprehensive metabo lic panel Metabolic Panel, Comprehensive (36416) [facility] Work Phone: Start: 06-09-2018 Procedure Education Eprescribe d prescriptions (G8553) [facility] Work Phone: Start: 06-09-2018 Provider Instruction s for Treatment [facility] Work Phone: Start: 06-09-2018 Thyrotropin Qn TSH (10129) [facility] Work Phone: Start: 12-09-2017 Procedure Education Eprescribe d prescriptions (G8553) [facility] Work Phone: Start: 12-09-2017 Provider Instruction s for Treatment [facility] Work Phone: Start: 09-30-2017 Procedure Education Eprescribe d prescriptions (G8553) [facility] Work Phone: Start: 09-30-2017 Provider Instruction s for Treatment Reviewed Diagnostic Tests [facility] Work Phone: Start: 09-30-2017 25 hydroxy includes fractions if performed CALCIFEDIOL (32375) [facility] Work Phone: Start: 09-01-2017 Procedure Education Eprescribe d prescriptions (G8553) [facility] Work Phone: Start: 09-01-2017 Provider Instruction s for Treatment [facility] Work Phone: Patient Education Causes of Sync ope Diagnosing Syncope ED Neck Sprain or Strain [facility] Work Phone: Patient referral [facility] Work Phone: [facility] Work Phone: [facility] Work Phone: [facility] Work Phone[facility] Work Phone: [facility] Work Phone: [facility] Work Phone: [facility] Work Phone: [facility] Work Phone: [facility] Work Phone: [facility] Work Phone: [facility] Work Phone: [facility] Work Phone: [facility] Work Phone: [facility] Work Phone: [facility] Work Phone: [facility] Work Phone: [facility] Work Phone: [facility]; [facility] Work Phone: [facility]; [facility] Work Phone: [facility]; [facility] Work Phone: [facility]; [facility] Work Phone: [facility]; [facility] Work Phone: [facility] Immunizations Immunization Date Immunization Notes Care Provider Fa cili 12-15-2017 Influenza virus vaccine [facility] 12-15-2017 pneumococcal conjuga te vaccine, 13 valent [facility] 12-15-2017 varicella virus vaccine [facility] Payers Date Payer Category Payer Unknown [id number] 2023 Private Health Insurance [id number] 2023 Unknown [id number] 2023 Self-pay [id number] 2023 Unknown [id number] 2020 Medicaid [id number] 2015 Medicare [id number] 1960 Unknown [id number] 2.16.84 [id number] Unknown Unknown [id number] 2.16.8 [id number] Unknown [id number] 2.16.8 [id number] Unknown [id number] 2.16.8 [id number] Unknown [id number] 2.16.8 [id number] Unknown [id number] 2.16.8 [id number] Unknown [id number] 2.16.8 [id number] Unknown [id number] 2.16.8 [id number] Unknown [id number] 2.16.8 [id number] Unknown [id number] 2.16.8 [id number] Unknown [id number] 2.16.8 [id number] Unknown [id number] 2.16.8 [id number] Unknown [id number] 2.16.8 [id number] Unknown [id number] 2.16.8 [id number] Unknown [id number] 2.16.8 [id number] Unknown [id number] 2.16.8 [id number] Unknown [id number] 2.16.8 [id number] Unknown [id number] 2.16.8 [id number] Unknown [id number] 2.16.8 [id number] Social History Date Type Detail Facility Alcohol use Never smoker [email or web address] Work Phone: Tobacco Use: Never smoker. [facility] Work Phone: Tobacco Use: Tobacco Use: [facility]; [facility] Work Phone: Start: 08-09-2021 End: 09-24-2021 Tobacco smoking status IDIS Unknown if ever smoked [facility] Work Phone: Start: 09-07-2018 None [facility] Start: 09-07-2018 Alone [facility] Start: 12-31-2019 Non-smoker [facility] Start: 1960 Sex Assigned At Female W [facility] Start: 07-29-2023 End: 06-17-2024 Tobacco smoking status NHIS Ex-smoker (finding) [facility] Start: 06-12-2024 End: 07-01-2024 Sex Female (finding) [facility] spital Medical Equipment Procedure Code Equipment Code Equipment Origin al Text Equipment Identifier Dates Insertion, spinal cord stimulator, permanent Vectris Sure Scan MRI 1x8 Lead FDA Start: 01-03-2020 Insertion, spinal cord stimulator, permanent Vectris SureScan MRI Lead Kit FDA Start: 01-03-2020 Insertion, spinal cord stimulator, permanent adaptive stim FDA Start: 01-03-2020 Insertion, spinal cord stimulator, permanent Vectris Sure Scan MRI 1x8 Lead FDA Start: 01-03-2020 Insertion, spinal cord stimulator, permanent Vectris SureScan MRI Lead Kit FDA Start: 01-03-2020 Insertion, spinal cord stimulator, permanent adaptive stim FDA Start: 01-03-2020 Insertion, spinal cord stimulator, permanent Vectris Sure Scan MRI 1x8 Lead FDA Start: 01-03-2020 Insertion, spinal cord stimulator, permanent Vectris SureScan MRI Lead Kit FDA Start: 01-03-2020 Insertion, spinal cord stimulator, permanent adaptive stim FDA Start: 01-03-2020 Insertion, spinal cord stimulator, permanent Vectris Sure Scan MRI 1x8 Lead FDA Start: 01-03-2020 Insertion, spinal cord stimulator, permanent Vectris SureScan MRI Lead Kit FDA Start: 01-03-2020 Insertion, spinal cord stimulator, permanent adaptive stim FDA Start: 01-03-2020 Insertion, spinal cord stimulator, permanent Vectris Sure Scan MRI 1x8 Lead FDA Start: 01-03-2020 Insertion, spinal cord stimulator, permanent Vectris SureScan MRI Lead Kit FDA Start: 01-03-2020 Insertion, spinal cord stimulator, permanent adaptive stim FDA Start: 01-03-2020 Goals Date Patient Goal Desired Activity /State Functional Status Date Assessment Result Facility 09-25-2021 Functional status Chair [facility] Work Phone: Mental Status Date Assessment Result Facility 09-25-2021 Cognitive function Voice/Name [facility] Work Phone: Clinical Notes 06-08-2024 to 06-28-2024 Note Date & Type Note Facility 06-28-2024 Radiology Diagnostic study note [facility] Imaging Services [address] [place], [place] [address] Other Unlisted US Procedure MR#: [id number] Acct: [id number] Name: PINA ORTEGA Rep #: [id number] : 1960 F 64 From: Armando Sutton MD PCP: Dr. Vu Ramon DO Status: RE G CLI Study:Other Unlisted US Procedure Date of Exa m: 06/28/24 Exam# [id number] Ordering Dr: Cale Cruz MD EXAM: Ultrasound of the left palm. CLINICAL HISTORY: Palpable lump. COMPARISON: None TECHNIQUE: Imaging of the palpable region was performed with ultrasound. FINDINGS: The palpable abnormality corresponds to a 4 mm x 6 mm x 2 mm cyst. US/Other Unlisted US Procedure IMPRESSION: The palpable lump corresponds to a 4 mm x 6 mm x 2 mm cyst. Reading Location: [facility] CC: Dr. Vu Ramon DO; Dr. Cale Cruz MD ~ Strategic Planner: Signed [facility] 06-08-2024 Evaluation note Diagnosis Onset Date Resolution Adenomatous colon polyp acute M 2024 3:20pm Ganglion cyst of finger of left hand acute June 08, 2024 3:20pm Hypothyroidism acute May 3:20pm Weight gain acute June 08, 2 025 3:20pm [facility] Work Phone: 1(511) 568-715803-25-2025 Evaluation note* Diagnosis Onset Date Resolution Status Admit Date Adenomatous colon polyp acute M 2024 3:20pm Ganglion cyst of finger of l eft hand acute June 08, 2024 3:20pm Hypothyroidism acute May 3:20pm Weight gain acute June 08 3:20pm Encounter for colonoscopy du e to history of adenomatous colonic polyps acute June 17, 2024 10:41am GERD (gastroesophageal reflu x disease) acute June 17, 2024 10:41am Constipation chronic June 17 10:41am Ganglion, left wrist acute Apri l 2024 10:18am [facility] Work Phone: Evaluation noteNo assessment information available [facility] Work Phone: Evaluation note* Diagnosis Onset Date Resolution Status Falls acute Orthostatic hypotension acut e Shortness of breath acute History of COPD chronic Hyperlipidemia chronic Thyroid cancer chronic [facility] Work [facility] Work Phone: Instructions* Name Dates Details How to access health informa Art Qualifiedon online Indication:Nonsmoker Start:17-Jan-2020 Instruction Type:Patient Education How to access health informa tion online - Detail Indication:Nonsmoker Start:17-Jan-2020 Instruction Type:Patient Education Patient Instructions Indication:Vitamin D deficiency Start:17-Jan-2020 Instruction Type:Provider Instructions for Treatment How to access health informa tion online Indication:Nonsmoker Start:29-Sep-2019 Instruction Type:Patient Education How to access health informa tion online - Detail Indication:Nonsmoker Start:29-Sep-2019 Instruction Type:Patient Education Patient Instructions Indication:Nonsmoker Start:29-Sep-2019 Instruction Type:Provider Instructions for Treatment How to access health informa tion online Indication:Nonsmoker Start:21-May-2019 Instruction Type:Patient Education How to access health informa tion online - Detail Indication:Nonsmoker Start:21-May-2019 Instruction Type:Patient Education Patient Instructions Indication:Nonsmoker Start:21-May-2019 Instruction Type:Provider Instructions for Treatment How to access health informa tion online Indication:Nonsmoker Start:05-May-2019 Instruction Type:Patient Education How to access health informa tion online - Detail Indication:Nonsmoker Start:05-May-2019 Instruction Type:Patient Education Patient Instructions Indication:Nonsmoker Start:05-May-2019 Instruction Type:Provider Instructions for Treatment How to access health informa tion online Indication:Nonsmoker Start:27-Nov-2018 Instruction Type:Patient Education How to access health informa tion online - Detail Indication:Nonsmoker Start:27-Nov-2018 Instruction Type:Patient Education Patient Instructions Indication:Nonsmoker Start:27-Nov-2018 Instruction Type:Provider Instructions for Treatment How to access health informa tion online - Detail Indication:Hypothyroid Start:20-Oct-2018 Instruction Type:Patient Education Patient Instructions Indication:Hypothyroid Start:20-Oct-2018 Instruction Type:Provider Instructions for Treatment How to access health informa tion online Indication:BMI 26.0-26.9,adult Start:14-Sep-2018 Instruction Type:Patient Education How to access health informa tion online - Detail Indication:BMI 26.0-26.9,adult Start:14-Sep-2018 Instruction Type:Patient Education Patient Instructions Indication:BMI 26.0-26.9,adult Start:14-Sep-2018 Instruction Type:Provider Instructions for Treatment How to access health informa tion online Indication:Nonsmoker Start:13-Jul-2018 Instruction Type:Patient Education How to access health informa tion online - Detail Indication:Nonsmoker Start:13-Jul-2018 Instruction Type:Patient Education Patient Instructions Indication:BMI 26.0-26.9,adult Start:13-Jul-2018 Instruction Type:Provider Instructions for Treatment How to access health informa tion online Indication:Nonsmoker Start:09-Jun-2018 Instruction Type:Patient Education How to access health informa tion online - Detail Indication:Nonsmoker Start:09-Jun-2018 Instruction Type:Patient Education Patient Instructions Indication:BMI 26.0-26.9,adult Start:09-Jun-2018 Instruction Type:Provider Instructions for Treatment How to access health informa tion online Indication:Nonsmoker Start:09-Dec-2017 Instruction Type:Patient Education How to access health informa tion online - Detail Indication:Nonsmoker Start:09-Dec-2017 Instruction Type:Patient Education Patient Instructions Indication:Nonsmoker Start:09-Dec-2017 Instruction Type:Provider Instructions for Treatment How to access health informa tion online Indication:Osteoporosis Start:30-Sep-2017 Instruction Type:Patient Education How to access health informa tion online - Detail Indication:Osteoporosis Start:30-Sep-2017 Instruction Type:Patient Education Patient Instructions Indication:Osteoporosis Start:30-Sep-2017 Instruction Type:Provider Instructions for Treatment How to access health informa tion online Indication:Osteoporosis Start:01-Sep-2017 Instruction Type:Patient Education How to access health informa tion online - Detail Indication:Osteoporosis Start:01-Sep-2017 Instruction Type:Patient Education Patient Instructions Indication:Osteoporosis Start:01-Sep-2017 Instruction Type:Provider Instructions for Treatment [facility]; [facility] Work Phone: Instructions* Name Dates Details How to access health informa tion online Indication:Nonsmoker Start:17-Jan-2020 Instruction Type:Patient Education How to access health informa tion online - Detail Indication:Nonsmoker Start:17-Jan-2020 Instruction Type:Patient Education Patient Instructions Indication:Vitamin D deficiency Start:17-Jan-2020 Instruction Type:Provider Instructions for Treatment How to access health informa tion online Indication:Nonsmoker Start:29-Sep-2019 Instruction Type:Patient Education How to access health informa tion online - Detail Indication:Nonsmoker Start:29-Sep-2019 Instruction Type:Patient Education Patient Instructions Indication:Nonsmoker Start:29-Sep-2019 Instruction Type:Provider Instructions for Treatment How to access health informa tion online Indication:Nonsmoker Start:21-May-2019 Instruction Type:Patient Education How to access health informa tion online - Detail Indication:Nonsmoker Start:21-May-2019 Instruction Type:Patient Education Patient Instructions Indication:Nonsmoker Start:21-May-2019 Instruction Type:Provider Instructions for Treatment How to access health informa tion online Indication:Nonsmoker Start:05-May-2019 Instruction Type:Patient Education How to access health informa tion online - Detail Indication:Nonsmoker Start:05-May-2019 Instruction Type:Patient Education Patient Instructions Indication:Nonsmoker Start:05-May-2019 Instruction Type:Provider Instructions for Treatment How to access health informa tion online Indication:Nonsmoker Start:27-Nov-2018 Instruction Type:Patient Education How to access health informa tion online - Detail Indication:Nonsmoker Start:27-Nov-2018 Instruction Type:Patient Education Patient Instructions Indication:Nonsmoker Start:27-Nov-2018 Instruction Type:Provider Instructions for Treatment How to access health informa tion online - Detail Indication:Hypothyroid Start:20-Oct-2018 Instruction Type:Patient Education Patient Instructions Indication:Hypothyroid Start:20-Oct-2018 Instruction Type:Provider Instructions for Treatment How to access health informa tion online Indication:BMI 26.0-26.9,adult Start:14-Sep-2018 Instruction Type:Patient Education How to access health informa tion online - Detail Indication:BMI 26.0-26.9,adult Start:14-Sep-2018 Instruction Type:Patient Education Patient Instructions Indication:BMI 26.0-26.9,adult Start:14-Sep-2018 Instruction Type:Provider Instructions for Treatment How to access health informa tion online Indication:Nonsmoker Start:13-Jul-2018 Instruction Type:Patient Education How to access health informa tion online - Detail Indication:Nonsmoker Start:13-Jul-2018 Instruction Type:Patient Education Patient Instructions Indication:BMI 26.0-26.9,adult Start:13-Jul-2018 Instruction Type:Provider Instructions for Treatment How to access health informa tion online Indication:Nonsmoker Start:09-Jun-2018 Instruction Type:Patient Education How to access health informa tion online - Detail Indication:Nonsmoker Start:09-Jun-2018 Instruction Type:Patient Education Patient Instructions Indication:BMI 26.0-26.9,adult Start:09-Jun-2018 Instruction Type:Provider Instructions for Treatment How to access health informa tion online Indication:Nonsmoker Start:09-Dec-2017 Instruction Type:Patient Education How to access health informa tion online - Detail Indication:Nonsmoker Start:09-Dec-2017 Instruction Type:Patient Education Patient Instructions Indication:Nonsmoker Start:09-Dec-2017 Instruction Type:Provider Instructions for Treatment How to access health informa tion online Indication:Osteoporosis Start:30-Sep-2017 Instruction Type:Patient Education How to access health informa tion online - Detail Indication:Osteoporosis Start:30-Sep-2017 Instruction Type:Patient Education Patient Instructions Indication:Osteoporosis Start:30-Sep-2017 Instruction Type:Provider Instructions for Treatment How to access health informa tion online Indication:Osteoporosis Start:01-Sep-2017 Instruction Type:Patient Education How to access health informa tion online - Detail Indication:Osteoporosis Start:01-Sep-2017 Instruction Type:Patient Education Patient Instructions Indication:Osteoporosis Start:01-Sep-2017 Instruction Type:Provider Instructions for Treatment [facility]; [facility] Work Phone: Instructions* Name Dates Details Patient Instructions Indication:Nonsmoker Start:31-Jul-2020 Instruction Type:Provider Instructions for Treatment How to Access Health Informa tion Online using Patient Portal and [employer] Indication:Nonsmoker Start:31-Jul-2020 Instruction Type:Patient Education How to access health informa tion online Indication:Nonsmoker Start:17-Jan-2020 Instruction Type:Patient Education How to access health informa tion online - Detail Indication:Nonsmoker Start:17-Jan-2020 Instruction Type:Patient Education Patient Instructions Indication:Vitamin D deficiency Start:17-Jan-2020 Instruction Type:Provider Instructions for Treatment How to access health informa tion online Indication:Nonsmoker Start:29-Sep-2019 Instruction Type:Patient Education How to access health informa tion online - Detail Indication:Nonsmoker Start:29-Sep-2019 Instruction Type:Patient Education Patient Instructions Indication:Nonsmoker Start:29-Sep-2019 Instruction Type:Provider Instructions for Treatment How to access health informa tion online Indication:Nonsmoker Start:21-May-2019 Instruction Type:Patient Education How to access health informa tion online - Detail Indication:Nonsmoker Start:21-May-2019 Instruction Type:Patient Education Patient Instructions Indication:Nonsmoker Start:21-May-2019 Instruction Type:Provider Instructions for Treatment How to access health informa tion online Indication:Nonsmoker Start:05-May-2019 Instruction Type:Patient Education How to access health informa tion online - Detail Indication:Nonsmoker Start:05-May-2019 Instruction Type:Patient Education Patient Instructions Indication:Nonsmoker Start:05-May-2019 Instruction Type:Provider Instructions for Treatment How to access health informa tion online Indication:Nonsmoker Start:27-Nov-2018 Instruction Type:Patient Education How to access health informa tion online - Detail Indication:Nonsmoker Start:27-Nov-2018 Instruction Type:Patient Education Patient Instructions Indication:Nonsmoker Start:27-Nov-2018 Instruction Type:Provider Instructions for Treatment How to access health informa tion online - Detail Indication:Hypothyroid Start:20-Oct-2018 Instruction Type:Patient Education Patient Instructions Indication:Hypothyroid Start:20-Oct-2018 Instruction Type:Provider Instructions for Treatment How to access health informa tion online Indication:BMI 26.0-26.9,adult Start:14-Sep-2018 Instruction Type:Patient Education How to access health informa tion online - Detail Indication:BMI 26.0-26.9,adult Start:14-Sep-2018 Instruction Type:Patient Education Patient Instructions Indication:BMI 26.0-26.9,adult Start:14-Sep-2018 Instruction Type:Provider Instructions for Treatment How to access health informa tion online Indication:Nonsmoker Start:13-Jul-2018 Instruction Type:Patient Education How to access health informa tion online - Detail Indication:Nonsmoker Start:13-Jul-2018 Instruction Type:Patient Education Patient Instructions Indication:BMI 26.0-26.9,adult Start:13-Jul-2018 Instruction Type:Provider Instructions for Treatment How to access health informa tion online Indication:Nonsmoker Start:09-Jun-2018 Instruction Type:Patient Education How to access health informa tion online - Detail Indication:Nonsmoker Start:09-Jun-2018 Instruction Type:Patient Education Patient Instructions Indication:BMI 26.0-26.9,adult Start:09-Jun-2018 Instruction Type:Provider Instructions for Treatment How to access health informa tion online Indication:Nonsmoker Start:09-Dec-2017 Instruction Type:Patient Education How to access health informa tion online - Detail Indication:Nonsmoker Start:09-Dec-2017 Instruction Type:Patient Education Patient Instructions Indication:Nonsmoker Start:09-Dec-2017 Instruction Type:Provider Instructions for Treatment How to access health informa tion online Indication:Osteoporosis Start:30-Sep-2017 Instruction Type:Patient Education How to access health informa tion online - Detail Indication:Osteoporosis Start:30-Sep-2017 Instruction Type:Patient Education Patient Instructions Indication:Osteoporosis Start:30-Sep-2017 Instruction Type:Provider Instructions for Treatment How to access health informa tion online Indication:Osteoporosis Start:01-Sep-2017 Instruction Type:Patient Education How to access health informa tion online - Detail Indication:Osteoporosis Start:01-Sep-2017 Instruction Type:Patient Education Patient Instructions Indication:Osteoporosis Start:01-Sep-2017 Instruction Type:Provider Instructions for Treatment [facility]; [facility] Work Phone: Instructions* Name Dates Details Patient Instructions Indication:BMI 29.0-29.9,adult Start:31-Jul-2020 Instruction Type:Provider Instructions for Treatment How to Access Health Informa tion Online using Patient Portal and 3rd [employer] Apps Indication:Nonsmoker Start:31-Jul-2020 Instruction Type:Patient Education How to access health informa tion online Indication:Nonsmoker Start:17-Jan-2020 Instruction Type:Patient Education How to access health informa tion online - Detail Indication:Nonsmoker Start:17-Jan-2020 Instruction Type:Patient Education Patient Instructions Indication:Vitamin D deficiency Start:17-Jan-2020 Instruction Type:Provider Instructions for Treatment How to access health informa tion online Indication:Nonsmoker Start:29-Sep-2019 Instruction Type:Patient Education How to access health informa tion online - Detail Indication:Nonsmoker Start:29-Sep-2019 Instruction Type:Patient Education Patient Instructions Indication:Nonsmoker Start:29-Sep-2019 Instruction Type:Provider Instructions for Treatment How to access health informa tion online Indication:Nonsmoker Start:21-May-2019 Instruction Type:Patient Education How to access health informa tion online - Detail Indication:Nonsmoker Start:21-May-2019 Instruction Type:Patient Education Patient Instructions Indication:Nonsmoker Start:21-May-2019 Instruction Type:Provider Instructions for Treatment How to access health informa tion online Indication:Nonsmoker Start:05-May-2019 Instruction Type:Patient Education How to access health informa tion online - Detail Indication:Nonsmoker Start:05-May-2019 Instruction Type:Patient Education Patient Instructions Indication:Nonsmoker Start:05-May-2019 Instruction Type:Provider Instructions for Treatment How to access health informa tion online Indication:Nonsmoker Start:27-Nov-2018 Instruction Type:Patient Education How to access health informa tion online - Detail Indication:Nonsmoker Start:27-Nov-2018 Instruction Type:Patient Education Patient Instructions Indication:Nonsmoker Start:27-Nov-2018 Instruction Type:Provider Instructions for Treatment How to access health informa tion online - Detail Indication:Hypothyroid Start:20-Oct-2018 Instruction Type:Patient Education Patient Instructions Indication:Hypothyroid Start:20-Oct-2018 Instruction Type:Provider Instructions for Treatment How to access health informa tion online Indication:BMI 26.0-26.9,adult Start:14-Sep-2018 Instruction Type:Patient Education How to access health informa tion online - Detail Indication:BMI 26.0-26.9,adult Start:14-Sep-2018 Instruction Type:Patient Education Patient Instructions Indication:BMI 26.0-26.9,adult Start:14-Sep-2018 Instruction Type:Provider Instructions for Treatment How to access health informa tion online Indication:Nonsmoker Start:13-Jul-2018 Instruction Type:Patient Education How to access health informa tion online - Detail Indication:Nonsmoker Start:13-Jul-2018 Instruction Type:Patient Education Patient Instructions Indication:BMI 26.0-26.9,adult Start:13-Jul-2018 Instruction Type:Provider Instructions for Treatment How to access health informa tion online Indication:Nonsmoker Start:09-Jun-2018 Instruction Type:Patient Education How to access health informa tion online - Detail Indication:Nonsmoker Start:09-Jun-2018 Instruction Type:Patient Education Patient Instructions Indication:BMI 26.0-26.9,adult Start:09-Jun-2018 Instruction Type:Provider Instructions for Treatment How to access health informa tion online Indication:Nonsmoker Start:09-Dec-2017 Instruction Type:Patient Education How to access health informa tion online - Detail Indication:Nonsmoker Start:09-Dec-2017 Instruction Type:Patient Education Patient Instructions Indication:Nonsmoker Start:09-Dec-2017 Instruction Type:Provider Instructions for Treatment How to access health informa tion online Indication:Osteoporosis Start:30-Sep-2017 Instruction Type:Patient Education How to access health informa tion online - Detail Indication:Osteoporosis Start:30-Sep-2017 Instruction Type:Patient Education Patient Instructions Indication:Osteoporosis Start:30-Sep-2017 Instruction Type:Provider Instructions for Treatment How to access health informa tion online Indication:Osteoporosis Start:01-Sep-2017 Instruction Type:Patient Education How to access health informa tion online - Detail Indication:Osteoporosis Start:01-Sep-2017 Instruction Type:Patient Education Patient Instructions Indication:Osteoporosis Start:01-Sep-2017 Instruction Type:Provider Instructions for Treatment [facility]; [facility] Work Phone: Instructions* Name Dates Details Patient Instructions Indication:BMI 29.0-29.9,adult Start:31-Jul-2020 Instruction Type:Provider Instructions for Treatment How to Access Health Informa tion Online using Patient Portal and 3rd [employer] Apps Indication:Nonsmoker Start:31-Jul-2020 Instruction Type:Patient Education How to access health informa tion online Indication:Nonsmoker Start:17-Jan-2020 Instruction Type:Patient Education How to access health informa tion online - Detail Indication:Nonsmoker Start:17-Jan-2020 Instruction Type:Patient Education Patient Instructions Indication:Vitamin D deficiency Start:17-Jan-2020 Instruction Type:Provider Instructions for Treatment How to access health informa tion online Indication:Nonsmoker Start:29-Sep-2019 Instruction Type:Patient Education How to access health informa tion online - Detail Indication:Nonsmoker Start:29-Sep-2019 Instruction Type:Patient Education Patient Instructions Indication:Nonsmoker Start:29-Sep-2019 Instruction Type:Provider Instructions for Treatment How to access health informa tion online Indication:Nonsmoker Start:21-May-2019 Instruction Type:Patient Education How to access health informa tion online - Detail Indication:Nonsmoker Start:21-May-2019 Instruction Type:Patient Education Patient Instructions Indication:Nonsmoker Start:21-May-2019 Instruction Type:Provider Instructions for Treatment How to access health informa tion online Indication:Nonsmoker Start:05-May-2019 Instruction Type:Patient Education How to access health informa tion online - Detail Indication:Nonsmoker Start:05-May-2019 Instruction Type:Patient Education Patient Instructions Indication:Nonsmoker Start:05-May-2019 Instruction Type:Provider Instructions for Treatment How to access health informa tion online Indication:Nonsmoker Start:27-Nov-2018 Instruction Type:Patient Education How to access health informa tion online - Detail Indication:Nonsmoker Start:27-Nov-2018 Instruction Type:Patient Education Patient Instructions Indication:Nonsmoker Start:27-Nov-2018 Instruction Type:Provider Instructions for Treatment How to access health informa tion online - Detail Indication:Hypothyroid Start:20-Oct-2018 Instruction Type:Patient Education Patient Instructions Indication:Hypothyroid Start:20-Oct-2018 Instruction Type:Provider Instructions for Treatment How to access health informa tion online Indication:BMI 26.0-26.9,adult Start:14-Sep-2018 Instruction Type:Patient Education How to access health informa tion online - Detail Indication:BMI 26.0-26.9,adult Start:14-Sep-2018 Instruction Type:Patient Education Patient Instructions Indication:BMI 26.0-26.9,adult Start:14-Sep-2018 Instruction Type:Provider Instructions for Treatment How to access health informa tion online Indication:Nonsmoker Start:13-Jul-2018 Instruction Type:Patient Education How to access health informa tion online - Detail Indication:Nonsmoker Start:13-Jul-2018 Instruction Type:Patient Education Patient Instructions Indication:BMI 26.0-26.9,adult Start:13-Jul-2018 Instruction Type:Provider Instructions for Treatment How to access health informa tion online Indication:Nonsmoker Start:09-Jun-2018 Instruction Type:Patient Education How to access health informa tion online - Detail Indication:Nonsmoker Start:09-Jun-2018 Instruction Type:Patient Education Patient Instructions Indication:BMI 26.0-26.9,adult Start:09-Jun-2018 Instruction Type:Provider Instructions for Treatment How to access health informa tion online Indication:Nonsmoker Start:09-Dec-2017 Instruction Type:Patient Education How to access health informa tion online - Detail Indication:Nonsmoker Start:09-Dec-2017 Instruction Type:Patient Education Patient Instructions Indication:Nonsmoker Start:09-Dec-2017 Instruction Type:Provider Instructions for Treatment How to access health informa tion online Indication:Osteoporosis Start:30-Sep-2017 Instruction Type:Patient Education How to access health informa tion online - Detail Indication:Osteoporosis Start:30-Sep-2017 Instruction Type:Patient Education Patient Instructions Indication:Osteoporosis Start:30-Sep-2017 Instruction Type:Provider Instructions for Treatment How to access health informa tion online Indication:Osteoporosis Start:01-Sep-2017 Instruction Type:Patient Education How to access health informa tion online - Detail Indication:Osteoporosis Start:01-Sep-2017 Instruction Type:Patient Education Patient Instructions Indication:Osteoporosis Start:01-Sep-2017 Instruction Type:Provider Instructions for Treatment [facility]; [facility] Work Phone: Instructions* Name Dates Details Patient Instructions Indication:Nonsmoker Start:16-Aug-2020 Instruction Type:Provider Instructions for Treatment How to Access Health Informa tion Online using Patient Portal and 3rd [employer] Apps Indication:Nonsmoker Start:16-Aug-2020 Instruction Type:Patient Education Patient Instructions Indication:BMI 29.0-29.9,adult Start:31-Jul-2020 Instruction Type:Provider Instructions for Treatment How to Access Health Informa tion Online using Patient Portal and 3rd [employer] Apps Indication:Nonsmoker Start:31-Jul-2020 Instruction Type:Patient Education How to access health informa tion online Indication:Nonsmoker Start:17-Jan-2020 Instruction Type:Patient Education How to access health informa tion online - Detail Indication:Nonsmoker Start:17-Jan-2020 Instruction Type:Patient Education Patient Instructions Indication:Vitamin D deficiency Start:17-Jan-2020 Instruction Type:Provider Instructions for Treatment How to access health informa tion online Indication:Nonsmoker Start:29-Sep-2019 Instruction Type:Patient Education How to access health informa tion online - Detail Indication:Nonsmoker Start:29-Sep-2019 Instruction Type:Patient Education Patient Instructions Indication:Nonsmoker Start:29-Sep-2019 Instruction Type:Provider Instructions for Treatment How to access health informa tion online Indication:Nonsmoker Start:21-May-2019 Instruction Type:Patient Education How to access health informa tion online - Detail Indication:Nonsmoker Start:21-May-2019 Instruction Type:Patient Education Patient Instructions Indication:Nonsmoker Start:21-May-2019 Instruction Type:Provider Instructions for Treatment How to access health informa tion online Indication:Nonsmoker Start:05-May-2019 Instruction Type:Patient Education How to access health informa tion online - Detail Indication:Nonsmoker Start:05-May-2019 Instruction Type:Patient Education Patient Instructions Indication:Nonsmoker Start:05-May-2019 Instruction Type:Provider Instructions for Treatment How to access health informa tion online Indication:Nonsmoker Start:27-Nov-2018 Instruction Type:Patient Education How to access health informa tion online - Detail Indication:Nonsmoker Start:27-Nov-2018 Instruction Type:Patient Education Patient Instructions Indication:Nonsmoker Start:27-Nov-2018 Instruction Type:Provider Instructions for Treatment How to access health informa tion online - Detail Indication:Hypothyroid Start:20-Oct-2018 Instruction Type:Patient Education Patient Instructions Indication:Hypothyroid Start:20-Oct-2018 Instruction Type:Provider Instructions for Treatment How to access health informa tion online Indication:BMI 26.0-26.9,adult Start:14-Sep-2018 Instruction Type:Patient Education How to access health informa tion online - Detail Indication:BMI 26.0-26.9,adult Start:14-Sep-2018 Instruction Type:Patient Education Patient Instructions Indication:BMI 26.0-26.9,adult Start:14-Sep-2018 Instruction Type:Provider Instructions for Treatment How to access health informa tion online Indication:Nonsmoker Start:13-Jul-2018 Instruction Type:Patient Education How to access health informa tion online - Detail Indication:Nonsmoker Start:13-Jul-2018 Instruction Type:Patient Education Patient Instructions Indication:BMI 26.0-26.9,adult Start:13-Jul-2018 Instruction Type:Provider Instructions for Treatment How to access health informa tion online Indication:Nonsmoker Start:09-Jun-2018 Instruction Type:Patient Education How to access health informa tion online - Detail Indication:Nonsmoker Start:09-Jun-2018 Instruction Type:Patient Education Patient Instructions Indication:BMI 26.0-26.9,adult Start:09-Jun-2018 Instruction Type:Provider Instructions for Treatment How to access health informa tion online Indication:Nonsmoker Start:09-Dec-2017 Instruction Type:Patient Education How to access health informa tion online - Detail Indication:Nonsmoker Start:09-Dec-2017 Instruction Type:Patient Education Patient Instructions Indication:Nonsmoker Start:09-Dec-2017 Instruction Type:Provider Instructions for Treatment How to access health informa tion online Indication:Osteoporosis Start:30-Sep-2017 Instruction Type:Patient Education How to access health informa tion online - Detail Indication:Osteoporosis Start:30-Sep-2017 Instruction Type:Patient Education Patient Instructions Indication:Osteoporosis Start:30-Sep-2017 Instruction Type:Provider Instructions for Treatment How to access health informa tion online Indication:Osteoporosis Start:01-Sep-2017 Instruction Type:Patient Education How to access health informa tion online - Detail Indication:Osteoporosis Start:01-Sep-2017 Instruction Type:Patient Education Patient Instructions Indication:Osteoporosis Start:01-Sep-2017 Instruction Type:Provider Instructions for Treatment [facility]; [facility] Work Phone: Instructions* Name Dates Details Patient Instructions Indication:Nonsmoker Start:25-Aug-2020 Instruction Type:Provider Instructions for Treatment How to Access Health Informa tion Online using Patient Portal and 3rd [employer] Apps Indication:Skin lesion Start:25-Aug-2020 Instruction Type:Patient Education Patient Instructions Indication:Nonsmoker Start:16-Aug-2020 Instruction Type:Provider Instructions for Treatment How to Access Health Informa tion Online using Patient Portal and 3rd [employer] Apps Indication:Nonsmoker Start:16-Aug-2020 Instruction Type:Patient Education Patient Instructions Indication:BMI 29.0-29.9,adult Start:31-Jul-2020 Instruction Type:Provider Instructions for Treatment How to Access Health Informa tion Online using Patient Portal and 3rd [employer] Apps Indication:Nonsmoker Start:31-Jul-2020 Instruction Type:Patient Education How to access health informa tion online Indication:Nonsmoker Start:17-Jan-2020 Instruction Type:Patient Education How to access health informa tion online - Detail Indication:Nonsmoker Start:17-Jan-2020 Instruction Type:Patient Education Patient Instructions Indication:Vitamin D deficiency Start:17-Jan-2020 Instruction Type:Provider Instructions for Treatment How to access health informa tion online Indication:Nonsmoker Start:29-Sep-2019 Instruction Type:Patient Education How to access health informa tion online - Detail Indication:Nonsmoker Start:29-Sep-2019 Instruction Type:Patient Education Patient Instructions Indication:Nonsmoker Start:29-Sep-2019 Instruction Type:Provider Instructions for Treatment How to access health informa tion online Indication:Nonsmoker Start:21-May-2019 Instruction Type:Patient Education How to access health informa tion online - Detail Indication:Nonsmoker Start:21-May-2019 Instruction Type:Patient Education Patient Instructions Indication:Nonsmoker Start:21-May-2019 Instruction Type:Provider Instructions for Treatment How to access health informa tion online Indication:Nonsmoker Start:05-May-2019 Instruction Type:Patient Education How to access health informa tion online - Detail Indication:Nonsmoker Start:05-May-2019 Instruction Type:Patient Education Patient Instructions Indication:Nonsmoker Start:05-May-2019 Instruction Type:Provider Instructions for Treatment How to access health informa tion online Indication:Nonsmoker Start:27-Nov-2018 Instruction Type:Patient Education How to access health informa tion online - Detail Indication:Nonsmoker Start:27-Nov-2018 Instruction Type:Patient Education Patient Instructions Indication:Nonsmoker Start:27-Nov-2018 Instruction Type:Provider Instructions for Treatment How to access health informa tion online - Detail Indication:Hypothyroid Start:20-Oct-2018 Instruction Type:Patient Education Patient Instructions Indication:Hypothyroid Start:20-Oct-2018 Instruction Type:Provider Instructions for Treatment How to access health informa tion online Indication:BMI 26.0-26.9,adult Start:14-Sep-2018 Instruction Type:Patient Education How to access health informa tion online - Detail Indication:BMI 26.0-26.9,adult Start:14-Sep-2018 Instruction Type:Patient Education Patient Instructions Indication:BMI 26.0-26.9,adult Start:14-Sep-2018 Instruction Type:Provider Instructions for Treatment How to access health informa tion online Indication:Nonsmoker Start:13-Jul-2018 Instruction Type:Patient Education How to access health informa tion online - Detail Indication:Nonsmoker Start:13-Jul-2018 Instruction Type:Patient Education Patient Instructions Indication:BMI 26.0-26.9,adult Start:13-Jul-2018 Instruction Type:Provider Instructions for Treatment How to access health informa tion online Indication:Nonsmoker Start:09-Jun-2018 Instruction Type:Patient Education How to access health informa tion online - Detail Indication:Nonsmoker Start:09-Jun-2018 Instruction Type:Patient Education Patient Instructions Indication:BMI 26.0-26.9,adult Start:09-Jun-2018 Instruction Type:Provider Instructions for Treatment How to access health informa tion online Indication:Nonsmoker Start:09-Dec-2017 Instruction Type:Patient Education How to access health informa tion online - Detail Indication:Nonsmoker Start:09-Dec-2017 Instruction Type:Patient Education Patient Instructions Indication:Nonsmoker Start:09-Dec-2017 Instruction Type:Provider Instructions for Treatment How to access health informa tion online Indication:Osteoporosis Start:30-Sep-2017 Instruction Type:Patient Education How to access health informa tion online - Detail Indication:Osteoporosis Start:30-Sep-2017 Instruction Type:Patient Education Patient Instructions Indication:Osteoporosis Start:30-Sep-2017 Instruction Type:Provider Instructions for Treatment How to access health informa tion online Indication:Osteoporosis Start:01-Sep-2017 Instruction Type:Patient Education How to access health informa tion online - Detail Indication:Osteoporosis Start:01-Sep-2017 Instruction Type:Patient Education Patient Instructions Indication:Osteoporosis Start:01-Sep-2017 Instruction Type:Provider Instructions for Treatment [facility]; [facility] Work Phone: Instructions* Name Dates Details Patient Instructions Indication:Nonsmoker Start:25-Aug-2020 Instruction Type:Provider Instructions for Treatment How to Access Health Informa tion Online using Patient Portal and 3rd [employer] Apps Indication:Skin lesion Start:25-Aug-2020 Instruction Type:Patient Education Patient Instructions Indication:Nonsmoker Start:16-Aug-2020 Instruction Type:Provider Instructions for Treatment How to Access Health Informa tion Online using Patient Portal and 3rd [employer] Apps Indication:Nonsmoker Start:16-Aug-2020 Instruction Type:Patient Education Patient Instructions Indication:BMI 29.0-29.9,adult Start:31-Jul-2020 Instruction Type:Provider Instructions for Treatment How to Access Health Informa tion Online using Patient Portal and 3rd [employer] Apps Indication:Nonsmoker Start:31-Jul-2020 Instruction Type:Patient Education How to access health informa tion online Indication:Nonsmoker Start:17-Jan-2020 Instruction Type:Patient Education How to access health informa tion online - Detail Indication:Nonsmoker Start:17-Jan-2020 Instruction Type:Patient Education Patient Instructions Indication:Vitamin D deficiency Start:17-Jan-2020 Instruction Type:Provider Instructions for Treatment How to access health informa tion online Indication:Nonsmoker Start:29-Sep-2019 Instruction Type:Patient Education How to access health informa tion online - Detail Indication:Nonsmoker Start:29-Sep-2019 Instruction Type:Patient Education Patient Instructions Indication:Nonsmoker Start:29-Sep-2019 Instruction Type:Provider Instructions for Treatment How to access health informa tion online Indication:Nonsmoker Start:21-May-2019 Instruction Type:Patient Education How to access health informa tion online - Detail Indication:Nonsmoker Start:21-May-2019 Instruction Type:Patient Education Patient Instructions Indication:Nonsmoker Start:21-May-2019 Instruction Type:Provider Instructions for Treatment How to access health informa tion online Indication:Nonsmoker Start:05-May-2019 Instruction Type:Patient Education How to access health informa tion online - Detail Indication:Nonsmoker Start:05-May-2019 Instruction Type:Patient Education Patient Instructions Indication:Nonsmoker Start:05-May-2019 Instruction Type:Provider Instructions for Treatment How to access health informa tion online Indication:Nonsmoker Start:27-Nov-2018 Instruction Type:Patient Education How to access health informa tion online - Detail Indication:Nonsmoker Start:27-Nov-2018 Instruction Type:Patient Education Patient Instructions Indication:Nonsmoker Start:27-Nov-2018 Instruction Type:Provider Instructions for Treatment How to access health informa tion online - Detail Indication:Hypothyroid Start:20-Oct-2018 Instruction Type:Patient Education Patient Instructions Indication:Hypothyroid Start:20-Oct-2018 Instruction Type:Provider Instructions for Treatment How to access health informa tion online Indication:BMI 26.0-26.9,adult Start:14-Sep-2018 Instruction Type:Patient Education How to access health informa tion online - Detail Indication:BMI 26.0-26.9,adult Start:14-Sep-2018 Instruction Type:Patient Education Patient Instructions Indication:BMI 26.0-26.9,adult Start:14-Sep-2018 Instruction Type:Provider Instructions for Treatment How to access health informa tion online Indication:Nonsmoker Start:13-Jul-2018 Instruction Type:Patient Education How to access health informa tion online - Detail Indication:Nonsmoker Start:13-Jul-2018 Instruction Type:Patient Education Patient Instructions Indication:BMI 26.0-26.9,adult Start:13-Jul-2018 Instruction Type:Provider Instructions for Treatment How to access health informa tion online Indication:Nonsmoker Start:09-Jun-2018 Instruction Type:Patient Education How to access health informa tion online - Detail Indication:Nonsmoker Start:09-Jun-2018 Instruction Type:Patient Education Patient Instructions Indication:BMI 26.0-26.9,adult Start:09-Jun-2018 Instruction Type:Provider Instructions for Treatment How to access health informa tion online Indication:Nonsmoker Start:09-Dec-2017 Instruction Type:Patient Education How to access health informa tion online - Detail Indication:Nonsmoker Start:09-Dec-2017 Instruction Type:Patient Education Patient Instructions Indication:Nonsmoker Start:09-Dec-2017 Instruction Type:Provider Instructions for Treatment How to access health informa tion online Indication:Osteoporosis Start:30-Sep-2017 Instruction Type:Patient Education How to access health informa tion online - Detail Indication:Osteoporosis Start:30-Sep-2017 Instruction Type:Patient Education Patient Instructions Indication:Osteoporosis Start:30-Sep-2017 Instruction Type:Provider Instructions for Treatment How to access health informa tion online Indication:Osteoporosis Start:01-Sep-2017 Instruction Type:Patient Education How to access health informa tion online - Detail Indication:Osteoporosis Start:01-Sep-2017 Instruction Type:Patient Education Patient Instructions Indication:Osteoporosis Start:01-Sep-2017 Instruction Type:Provider Instructions for Treatment [facility]; [facility] Work Phone: Instructions* Name Dates Details Patient Instructions Indication:Nonsmoker Start:25-Aug-2020 Instruction Type:Provider Instructions for Treatment How to Access Health Informa tion Online using Patient Portal and [employer]rd [employer] Apps Indication:Skin lesion Start:25-Aug-2020 Instruction Type:Patient Education Patient Instructions Indication:Nonsmoker Start:16-Aug-2020 Instruction Type:Provider Instructions for Treatment How to Access Health Informa tion Online using Patient Portal and [employer]rd [employer] Apps Indication:Nonsmoker Start:16-Aug-2020 Instruction Type:Patient Education Patient Instructions Indication:BMI 29.0-29.9,adult Start:31-Jul-2020 Instruction Type:Provider Instructions for Treatment How to Access Health Informa tion Online using Patient Portal and [employer]rd [employer] Apps Indication:Nonsmoker Start:31-Jul-2020 Instruction Type:Patient Education How to access health informa tion online Indication:Nonsmoker Start:17-Jan-2020 Instruction Type:Patient Education How to access health informa tion online - Detail Indication:Nonsmoker Start:17-Jan-2020 Instruction Type:Patient Education Patient Instructions Indication:Vitamin D deficiency Start:17-Jan-2020 Instruction Type:Provider Instructions for Treatment How to access health informa tion online Indication:Nonsmoker Start:29-Sep-2019 Instruction Type:Patient Education How to access health informa tion online - Detail Indication:Nonsmoker Start:29-Sep-2019 Instruction Type:Patient Education Patient Instructions Indication:Nonsmoker Start:29-Sep-2019 Instruction Type:Provider Instructions for Treatment How to access health informa tion online Indication:Nonsmoker Start:21-May-2019 Instruction Type:Patient Education How to access health informa tion online - Detail Indication:Nonsmoker Start:21-May-2019 Instruction Type:Patient Education Patient Instructions Indication:Nonsmoker Start:21-May-2019 Instruction Type:Provider Instructions for Treatment How to access health informa tion online Indication:Nonsmoker Start:05-May-2019 Instruction Type:Patient Education How to access health informa tion online - Detail Indication:Nonsmoker Start:05-May-2019 Instruction Type:Patient Education Patient Instructions Indication:Nonsmoker Start:05-May-2019 Instruction Type:Provider Instructions for Treatment How to access health informa tion online Indication:Nonsmoker Start:27-Nov-2018 Instruction Type:Patient Education How to access health informa tion online - Detail Indication:Nonsmoker Start:27-Nov-2018 Instruction Type:Patient Education Patient Instructions Indication:Nonsmoker Start:27-Nov-2018 Instruction Type:Provider Instructions for Treatment How to access health informa tion online - Detail Indication:Hypothyroid Start:20-Oct-2018 Instruction Type:Patient Education Patient Instructions Indication:Hypothyroid Start:20-Oct-2018 Instruction Type:Provider Instructions for Treatment How to access health informa tion online Indication:BMI 26.0-26.9,adult Start:14-Sep-2018 Instruction Type:Patient Education How to access health informa tion online - Detail Indication:BMI 26.0-26.9,adult Start:14-Sep-2018 Instruction Type:Patient Education Patient Instructions Indication:BMI 26.0-26.9,adult Start:14-Sep-2018 Instruction Type:Provider Instructions for Treatment How to access health informa tion online Indication:Nonsmoker Start:13-Jul-2018 Instruction Type:Patient Education How to access health informa tion online - Detail Indication:Nonsmoker Start:13-Jul-2018 Instruction Type:Patient Education Patient Instructions Indication:BMI 26.0-26.9,adult Start:13-Jul-2018 Instruction Type:Provider Instructions for Treatment How to access health informa tion online Indication:Nonsmoker Start:09-Jun-2018 Instruction Type:Patient Education How to access health informa tion online - Detail Indication:Nonsmoker Start:09-Jun-2018 Instruction Type:Patient Education Patient Instructions Indication:BMI 26.0-26.9,adult Start:09-Jun-2018 Instruction Type:Provider Instructions for Treatment How to access health informa tion online Indication:Nonsmoker Start:09-Dec-2017 Instruction Type:Patient Education How to access health informa tion online - Detail Indication:Nonsmoker Start:09-Dec-2017 Instruction Type:Patient Education Patient Instructions Indication:Nonsmoker Start:09-Dec-2017 Instruction Type:Provider Instructions for Treatment How to access health informa tion online Indication:Osteoporosis Start:30-Sep-2017 Instruction Type:Patient Education How to access health informa tion online - Detail Indication:Osteoporosis Start:30-Sep-2017 Instruction Type:Patient Education Patient Instructions Indication:Osteoporosis Start:30-Sep-2017 Instruction Type:Provider Instructions for Treatment How to access health informa tion online Indication:Osteoporosis Start:01-Sep-2017 Instruction Type:Patient Education How to access health informa tion online - Detail Indication:Osteoporosis Start:01-Sep-2017 Instruction Type:Patient Education Patient Instructions Indication:Osteoporosis Start:01-Sep-2017 Instruction Type:Provider Instructions for Treatment [facility]; [facility] Work Phone: Instructions* Name Dates Details Patient Instructions Indication:BMI 29.0-29.9,adult Start:27-Feb-2021 Instruction Type:Provider Instructions for Treatment How to Access Health Informa tion Online using Patient Portal and [employer] Apps Indication:BMI 29.0-29.9,adult Start:27-Feb-2021 Instruction Type:Patient Education DISCONTINUED - METABOLIC [place], COMPREHENSIVE ([id number]) Indication:BMI 29.0-29.9,adult Start:20-Feb-2021 Instruction Type:Patient Education Patient Instructions Indication:BMI 29.0-29.9,adult Start:20-Feb-2021 Instruction Type:Provider Instructions for Treatment How to Access Health Informa tion Online using Patient Portal and [employer]rd [employer] Apps Indication:BMI 29.0-29.9,adult Start:20-Feb-2021 Instruction Type:Patient Education Patient Instructions Indication:Nonsmoker Start:25-Aug-2020 Instruction Type:Provider Instructions for Treatment How to Access Health Informa tion Online using Patient Portal and [employer]rd [employer] Apps Indication:Skin lesion Start:25-Aug-2020 Instruction Type:Patient Education Patient Instructions Indication:Nonsmoker Start:16-Aug-2020 Instruction Type:Provider Instructions for Treatment How to Access Health Informa tion Online using Patient Portal and [employer]rd [employer] Apps Indication:Nonsmoker Start:16-Aug-2020 Instruction Type:Patient Education Patient Instructions Indication:BMI 29.0-29.9,adult Start:31-Jul-2020 Instruction Type:Provider Instructions for Treatment How to Access Health Informa tion Online using Patient Portal and [employer]rd [employer] Apps Indication:Nonsmoker Start:31-Jul-2020 Instruction Type:Patient Education How to access health informa tion online Indication:Nonsmoker Start:17-Jan-2020 Instruction Type:Patient Education How to access health informa tion online - Detail Indication:Nonsmoker Start:17-Jan-2020 Instruction Type:Patient Education Patient Instructions Indication:Vitamin D deficiency Start:17-Jan-2020 Instruction Type:Provider Instructions for Treatment How to access health informa tion online Indication:Nonsmoker Start:29-Sep-2019 Instruction Type:Patient Education How to access health informa tion online - Detail Indication:Nonsmoker Start:29-Sep-2019 Instruction Type:Patient Education Patient Instructions Indication:Nonsmoker Start:29-Sep-2019 Instruction Type:Provider Instructions for Treatment How to access health informa tion online Indication:Nonsmoker Start:21-May-2019 Instruction Type:Patient Education How to access health informa tion online - Detail Indication:Nonsmoker Start:21-May-2019 Instruction Type:Patient Education Patient Instructions Indication:Nonsmoker Start:21-May-2019 Instruction Type:Provider Instructions for Treatment How to access health informa tion online Indication:Nonsmoker Start:05-May-2019 Instruction Type:Patient Education How to access health informa tion online - Detail Indication:Nonsmoker Start:05-May-2019 Instruction Type:Patient Education Patient Instructions Indication:Nonsmoker Start:05-May-2019 Instruction Type:Provider Instructions for Treatment How to access health informa tion online Indication:Nonsmoker Start:27-Nov-2018 Instruction Type:Patient Education How to access health informa tion online - Detail Indication:Nonsmoker Start:27-Nov-2018 Instruction Type:Patient Education Patient Instructions Indication:Nonsmoker Start:27-Nov-2018 Instruction Type:Provider Instructions for Treatment How to access health informa tion online - Detail Indication:Hypothyroid Start:20-Oct-2018 Instruction Type:Patient Education Patient Instructions Indication:Hypothyroid Start:20-Oct-2018 Instruction Type:Provider Instructions for Treatment How to access health informa tion online Indication:BMI 26.0-26.9,adult Start:14-Sep-2018 Instruction Type:Patient Education How to access health informa tion online - Detail Indication:BMI 26.0-26.9,adult Start:14-Sep-2018 Instruction Type:Patient Education Patient Instructions Indication:BMI 26.0-26.9,adult Start:14-Sep-2018 Instruction Type:Provider Instructions for Treatment How to access health informa tion online Indication:Nonsmoker Start:13-Jul-2018 Instruction Type:Patient Education How to access health informa tion online - Detail Indication:Nonsmoker Start:13-Jul-2018 Instruction Type:Patient Education Patient Instructions Indication:BMI 26.0-26.9,adult Start:13-Jul-2018 Instruction Type:Provider Instructions for Treatment How to access health informa tion online Indication:Nonsmoker Start:09-Jun-2018 Instruction Type:Patient Education How to access health informa tion online - Detail Indication:Nonsmoker Start:09-Jun-2018 Instruction Type:Patient Education Patient Instructions Indication:BMI 26.0-26.9,adult Start:09-Jun-2018 Instruction Type:Provider Instructions for Treatment How to access health informa tion online Indication:Nonsmoker Start:09-Dec-2017 Instruction Type:Patient Education How to access health informa tion online - Detail Indication:Nonsmoker Start:09-Dec-2017 Instruction Type:Patient Education Patient Instructions Indication:Nonsmoker Start:09-Dec-2017 Instruction Type:Provider Instructions for Treatment How to access health informa tion online Indication:Osteoporosis Start:30-Sep-2017 Instruction Type:Patient Education How to access health informa tion online - Detail Indication:Osteoporosis Start:30-Sep-2017 Instruction Type:Patient Education Patient Instructions Indication:Osteoporosis Start:30-Sep-2017 Instruction Type:Provider Instructions for Treatment How to access health informa tion online Indication:Osteoporosis Start:01-Sep-2017 Instruction Type:Patient Education How to access health informa tion online - Detail Indication:Osteoporosis Start:01-Sep-2017 Instruction Type:Patient Education Patient Instructions Indication:Osteoporosis Start:01-Sep-2017 Instruction Type:Provider Instructions for Treatment [facility]; [facility] Work Phone: Instructions* Name Dates Details Patient Instructions Indication:BMI 29.0-29.9,adult Start:27-Feb-2021 Instruction Type:Provider Instructions for Treatment How to Access Health Informa tion Online using Patient Portal and [employer] Apps Indication:BMI 29.0-29.9,adult Start:27-Feb-2021 Instruction Type:Patient Education DISCONTINUED - METABOLIC FRANKY RAMIREZ ([id number]) Indication:BMI 29.0-29.9,adult Start:20-Feb-2021 Instruction Type:Patient Education Patient Instructions Indication:BMI 29.0-29.9,adult Start:20-Feb-2021 Instruction Type:Provider Instructions for Treatment How to Access Health Informa tion Online using Patient Portal and [employer]rd [employer] Apps Indication:BMI 29.0-29.9,adult Start:20-Feb-2021 Instruction Type:Patient Education Patient Instructions Indication:Nonsmoker Start:25-Aug-2020 Instruction Type:Provider Instructions for Treatment How to Access Health Informa tion Online using Patient Portal and [employer]rd [employer] Apps Indication:Skin lesion Start:25-Aug-2020 Instruction Type:Patient Education Patient Instructions Indication:Nonsmoker Start:16-Aug-2020 Instruction Type:Provider Instructions for Treatment How to Access Health Informa tion Online using Patient Portal and [employer]rd [employer] Apps Indication:Nonsmoker Start:16-Aug-2020 Instruction Type:Patient Education Patient Instructions Indication:BMI 29.0-29.9,adult Start:31-Jul-2020 Instruction Type:Provider Instructions for Treatment How to Access Health Informa tion Online using Patient Portal and [employer] Apps Indication:Nonsmoker Start:31-Jul-2020 Instruction Type:Patient Education How to access health informa tion online Indication:Nonsmoker Start:17-Jan-2020 Instruction Type:Patient Education How to access health informa tion online - Detail Indication:Nonsmoker Start:17-Jan-2020 Instruction Type:Patient Education Patient Instructions Indication:Vitamin D deficiency Start:17-Jan-2020 Instruction Type:Provider Instructions for Treatment How to access health informa tion online Indication:Nonsmoker Start:29-Sep-2019 Instruction Type:Patient Education How to access health informa tion online - Detail Indication:Nonsmoker Start:29-Sep-2019 Instruction Type:Patient Education Patient Instructions Indication:Nonsmoker Start:29-Sep-2019 Instruction Type:Provider Instructions for Treatment How to access health informa tion online Indication:Nonsmoker Start:21-May-2019 Instruction Type:Patient Education How to access health informa tion online - Detail Indication:Nonsmoker Start:21-May-2019 Instruction Type:Patient Education Patient Instructions Indication:Nonsmoker Start:21-May-2019 Instruction Type:Provider Instructions for Treatment How to access health informa tion online Indication:Nonsmoker Start:05-May-2019 Instruction Type:Patient Education How to access health informa tion online - Detail Indication:Nonsmoker Start:05-May-2019 Instruction Type:Patient Education Patient Instructions Indication:Nonsmoker Start:05-May-2019 Instruction Type:Provider Instructions for Treatment How to access health informa tion online Indication:Nonsmoker Start:27-Nov-2018 Instruction Type:Patient Education How to access health informa tion online - Detail Indication:Nonsmoker Start:27-Nov-2018 Instruction Type:Patient Education Patient Instructions Indication:Nonsmoker Start:27-Nov-2018 Instruction Type:Provider Instructions for Treatment How to access health informa tion online - Detail Indication:Hypothyroid Start:20-Oct-2018 Instruction Type:Patient Education Patient Instructions Indication:Hypothyroid Start:20-Oct-2018 Instruction Type:Provider Instructions for Treatment How to access health informa tion online Indication:BMI 26.0-26.9,adult Start:14-Sep-2018 Instruction Type:Patient Education How to access health informa tion online - Detail Indication:BMI 26.0-26.9,adult Start:14-Sep-2018 Instruction Type:Patient Education Patient Instructions Indication:BMI 26.0-26.9,adult Start:14-Sep-2018 Instruction Type:Provider Instructions for Treatment How to access health informa tion online Indication:Nonsmoker Start:13-Jul-2018 Instruction Type:Patient Education How to access health informa tion online - Detail Indication:Nonsmoker Start:13-Jul-2018 Instruction Type:Patient Education Patient Instructions Indication:BMI 26.0-26.9,adult Start:13-Jul-2018 Instruction Type:Provider Instructions for Treatment How to access health informa tion online Indication:Nonsmoker Start:09-Jun-2018 Instruction Type:Patient Education How to access health informa tion online - Detail Indication:Nonsmoker Start:09-Jun-2018 Instruction Type:Patient Education Patient Instructions Indication:BMI 26.0-26.9,adult Start:09-Jun-2018 Instruction Type:Provider Instructions for Treatment How to access health informa tion online Indication:Nonsmoker Start:09-Dec-2017 Instruction Type:Patient Education How to access health informa tion online - Detail Indication:Nonsmoker Start:09-Dec-2017 Instruction Type:Patient Education Patient Instructions Indication:Nonsmoker Start:09-Dec-2017 Instruction Type:Provider Instructions for Treatment How to access health informa tion online Indication:Osteoporosis Start:30-Sep-2017 Instruction Type:Patient Education How to access health informa tion online - Detail Indication:Osteoporosis Start:30-Sep-2017 Instruction Type:Patient Education Patient Instructions Indication:Osteoporosis Start:30-Sep-2017 Instruction Type:Provider Instructions for Treatment How to access health informa tion online Indication:Osteoporosis Start:01-Sep-2017 Instruction Type:Patient Education How to access health informa tion online - Detail Indication:Osteoporosis Start:01-Sep-2017 Instruction Type:Patient Education Patient Instructions Indication:Osteoporosis Start:01-Sep-2017 Instruction Type:Provider Instructions for Treatment [facility]; [facility] Work Phone: Instructions* Name Dates Details Patient Instructions Indication:BMI 29.0-29.9,adult Start:27-Feb-2021 Instruction Type:Provider Instructions for Treatment How to Access Health Informa tion Online using Patient Portal and [employer] Apps Indication:BMI 29.0-29.9,adult Start:27-Feb-2021 Instruction Type:Patient Education DISCONTINUED - METABOLIC [place], COMPREHENSIVE ([id number]) Indication:BMI 29.0-29.9,adult Start:20-Feb-2021 Instruction Type:Patient Education Patient Instructions Indication:BMI 29.0-29.9,adult Start:20-Feb-2021 Instruction Type:Provider Instructions for Treatment How to Access Health Informa tion Online using Patient Portal and [employer] Apps Indication:BMI 29.0-29.9,adult Start:20-Feb-2021 Instruction Type:Patient Education Patient Instructions Indication:Nonsmoker Start:25-Aug-2020 Instruction Type:Provider Instructions for Treatment How to Access Health Informa tion Online using Patient Portal and [employer] Apps Indication:Skin lesion Start:25-Aug-2020 Instruction Type:Patient Education Patient Instructions Indication:Nonsmoker Start:16-Aug-2020 Instruction Type:Provider Instructions for Treatment How to Access Health Informa tion Online using Patient Portal and [employer] Apps Indication:Nonsmoker Start:16-Aug-2020 Instruction Type:Patient Education Patient Instructions Indication:BMI 29.0-29.9,adult Start:31-Jul-2020 Instruction Type:Provider Instructions for Treatment How to Access Health Informa tion Online using Patient Portal and [employer] Apps Indication:Nonsmoker Start:31-Jul-2020 Instruction Type:Patient Education How to access health informa tion online Indication:Nonsmoker Start:17-Jan-2020 Instruction Type:Patient Education How to access health informa tion online - Detail Indication:Nonsmoker Start:17-Jan-2020 Instruction Type:Patient Education Patient Instructions Indication:Vitamin D deficiency Start:17-Jan-2020 Instruction Type:Provider Instructions for Treatment How to access health informa tion online Indication:Nonsmoker Start:29-Sep-2019 Instruction Type:Patient Education How to access health informa tion online - Detail Indication:Nonsmoker Start:29-Sep-2019 Instruction Type:Patient Education Patient Instructions Indication:Nonsmoker Start:29-Sep-2019 Instruction Type:Provider Instructions for Treatment How to access health informa tion online Indication:Nonsmoker Start:21-May-2019 Instruction Type:Patient Education How to access health informa tion online - Detail Indication:Nonsmoker Start:21-May-2019 Instruction Type:Patient Education Patient Instructions Indication:Nonsmoker Start:21-May-2019 Instruction Type:Provider Instructions for Treatment How to access health informa tion online Indication:Nonsmoker Start:05-May-2019 Instruction Type:Patient Education How to access health informa tion online - Detail Indication:Nonsmoker Start:05-May-2019 Instruction Type:Patient Education Patient Instructions Indication:Nonsmoker Start:05-May-2019 Instruction Type:Provider Instructions for Treatment How to access health informa tion online Indication:Nonsmoker Start:27-Nov-2018 Instruction Type:Patient Education How to access health informa tion online - Detail Indication:Nonsmoker Start:27-Nov-2018 Instruction Type:Patient Education Patient Instructions Indication:Nonsmoker Start:27-Nov-2018 Instruction Type:Provider Instructions for Treatment How to access health informa tion online - Detail Indication:Hypothyroid Start:20-Oct-2018 Instruction Type:Patient Education Patient Instructions Indication:Hypothyroid Start:20-Oct-2018 Instruction Type:Provider Instructions for Treatment How to access health informa tion online Indication:BMI 26.0-26.9,adult Start:14-Sep-2018 Instruction Type:Patient Education How to access health informa tion online - Detail Indication:BMI 26.0-26.9,adult Start:14-Sep-2018 Instruction Type:Patient Education Patient Instructions Indication:BMI 26.0-26.9,adult Start:14-Sep-2018 Instruction Type:Provider Instructions for Treatment How to access health informa tion online Indication:Nonsmoker Start:13-Jul-2018 Instruction Type:Patient Education How to access health informa tion online - Detail Indication:Nonsmoker Start:13-Jul-2018 Instruction Type:Patient Education Patient Instructions Indication:BMI 26.0-26.9,adult Start:13-Jul-2018 Instruction Type:Provider Instructions for Treatment How to access health informa tion online Indication:Nonsmoker Start:09-Jun-2018 Instruction Type:Patient Education How to access health informa tion online - Detail Indication:Nonsmoker Start:09-Jun-2018 Instruction Type:Patient Education Patient Instructions Indication:BMI 26.0-26.9,adult Start:09-Jun-2018 Instruction Type:Provider Instructions for Treatment How to access health informa tion online Indication:Nonsmoker Start:09-Dec-2017 Instruction Type:Patient Education How to access health informa tion online - Detail Indication:Nonsmoker Start:09-Dec-2017 Instruction Type:Patient Education Patient Instructions Indication:Nonsmoker Start:09-Dec-2017 Instruction Type:Provider Instructions for Treatment How to access health informa tion online Indication:Osteoporosis Start:30-Sep-2017 Instruction Type:Patient Education How to access health informa tion online - Detail Indication:Osteoporosis Start:30-Sep-2017 Instruction Type:Patient Education Patient Instructions Indication:Osteoporosis Start:30-Sep-2017 Instruction Type:Provider Instructions for Treatment How to access health informa tion online Indication:Osteoporosis Start:01-Sep-2017 Instruction Type:Patient Education How to access health informa tion online - Detail Indication:Osteoporosis Start:01-Sep-2017 Instruction Type:Patient Education Patient Instructions Indication:Osteoporosis Start:01-Sep-2017 Instruction Type:Provider Instructions for Treatment [facility]; [facility] Work Phone: Instructions* Name Dates Details Patient Instructions Indication:BMI 29.0-29.9,adult Start:27-Feb-2021 Instruction Type:Provider Instructions for Treatment How to Access Health Informa tion Online using Patient Portal and 3rd [employer] Apps Indication:BMI 29.0-29.9,adult Start:27-Feb-2021 Instruction Type:Patient Education DISCONTINUED - METABOLIC FRANKY RAMIREZ ([id number]) Indication:BMI 29.0-29.9,adult Start:20-Feb-2021 Instruction Type:Patient Education Patient Instructions Indication:BMI 29.0-29.9,adult Start:20-Feb-2021 Instruction Type:Provider Instructions for Treatment How to Access Health Informa tion Online using Patient Portal and 3rd [employer] Apps Indication:BMI 29.0-29.9,adult Start:20-Feb-2021 Instruction Type:Patient Education Patient Instructions Indication:Nonsmoker Start:25-Aug-2020 Instruction Type:Provider Instructions for Treatment How to Access Health Informa tion Online using Patient Portal and 3rd [employer] Apps Indication:Skin lesion Start:25-Aug-2020 Instruction Type:Patient Education Patient Instructions Indication:Nonsmoker Start:16-Aug-2020 Instruction Type:Provider Instructions for Treatment How to Access Health Informa tion Online using Patient Portal and 3rd [employer] Apps Indication:Nonsmoker Start:16-Aug-2020 Instruction Type:Patient Education Patient Instructions Indication:BMI 29.0-29.9,adult Start:31-Jul-2020 Instruction Type:Provider Instructions for Treatment How to Access Health Informa tion Online using Patient Portal and 3rd [employer] Apps Indication:Nonsmoker Start:31-Jul-2020 Instruction Type:Patient Education How to access health informa tion online Indication:Nonsmoker Start:17-Jan-2020 Instruction Type:Patient Education How to access health informa tion online - Detail Indication:Nonsmoker Start:17-Jan-2020 Instruction Type:Patient Education Patient Instructions Indication:Vitamin D deficiency Start:17-Jan-2020 Instruction Type:Provider Instructions for Treatment How to access health informa tion online Indication:Nonsmoker Start:29-Sep-2019 Instruction Type:Patient Education How to access health informa tion online - Detail Indication:Nonsmoker Start:29-Sep-2019 Instruction Type:Patient Education Patient Instructions Indication:Nonsmoker Start:29-Sep-2019 Instruction Type:Provider Instructions for Treatment How to access health informa tion online Indication:Nonsmoker Start:21-May-2019 Instruction Type:Patient Education How to access health informa tion online - Detail Indication:Nonsmoker Start:21-May-2019 Instruction Type:Patient Education Patient Instructions Indication:Nonsmoker Start:21-May-2019 Instruction Type:Provider Instructions for Treatment How to access health informa tion online Indication:Nonsmoker Start:05-May-2019 Instruction Type:Patient Education How to access health informa tion online - Detail Indication:Nonsmoker Start:05-May-2019 Instruction Type:Patient Education Patient Instructions Indication:Nonsmoker Start:05-May-2019 Instruction Type:Provider Instructions for Treatment How to access health informa tion online Indication:Nonsmoker Start:27-Nov-2018 Instruction Type:Patient Education How to access health informa tion online - Detail Indication:Nonsmoker Start:27-Nov-2018 Instruction Type:Patient Education Patient Instructions Indication:Nonsmoker Start:27-Nov-2018 Instruction Type:Provider Instructions for Treatment How to access health informa tion online - Detail Indication:Hypothyroid Start:20-Oct-2018 Instruction Type:Patient Education Patient Instructions Indication:Hypothyroid Start:20-Oct-2018 Instruction Type:Provider Instructions for Treatment How to access health informa tion online Indication:BMI 26.0-26.9,adult Start:14-Sep-2018 Instruction Type:Patient Education How to access health informa tion online - Detail Indication:BMI 26.0-26.9,adult Start:14-Sep-2018 Instruction Type:Patient Education Patient Instructions Indication:BMI 26.0-26.9,adult Start:14-Sep-2018 Instruction Type:Provider Instructions for Treatment How to access health informa tion online Indication:Nonsmoker Start:13-Jul-2018 Instruction Type:Patient Education How to access health informa tion online - Detail Indication:Nonsmoker Start:13-Jul-2018 Instruction Type:Patient Education Patient Instructions Indication:BMI 26.0-26.9,adult Start:13-Jul-2018 Instruction Type:Provider Instructions for Treatment How to access health informa tion online Indication:Nonsmoker Start:09-Jun-2018 Instruction Type:Patient Education How to access health informa tion online - Detail Indication:Nonsmoker Start:09-Jun-2018 Instruction Type:Patient Education Patient Instructions Indication:BMI 26.0-26.9,adult Start:09-Jun-2018 Instruction Type:Provider Instructions for Treatment How to access health informa tion online Indication:Nonsmoker Start:09-Dec-2017 Instruction Type:Patient Education How to access health informa tion online - Detail Indication:Nonsmoker Start:09-Dec-2017 Instruction Type:Patient Education Patient Instructions Indication:Nonsmoker Start:09-Dec-2017 Instruction Type:Provider Instructions for Treatment How to access health informa tion online Indication:Osteoporosis Start:30-Sep-2017 Instruction Type:Patient Education How to access health informa tion online - Detail Indication:Osteoporosis Start:30-Sep-2017 Instruction Type:Patient Education Patient Instructions Indication:Osteoporosis Start:30-Sep-2017 Instruction Type:Provider Instructions for Treatment How to access health informa tion online Indication:Osteoporosis Start:01-Sep-2017 Instruction Type:Patient Education How to access health informa tion online - Detail Indication:Osteoporosis Start:01-Sep-2017 Instruction Type:Patient Education Patient Instructions Indication:Osteoporosis Start:01-Sep-2017 Instruction Type:Provider Instructions for Treatment [facility]; [facility] Work Phone: Instructions* Name Dates Details Patient Instructions Indication:BMI 29.0-29.9,adult Start:27-Feb-2021 Instruction Type:Provider Instructions for Treatment How to Access Health Informa tion Online using Patient Portal and 3rd [employer] Apps Indication:BMI 29.0-29.9,adult Start:27-Feb-2021 Instruction Type:Patient Education DISCONTINUED - METABOLIC DOWNING EL, COMPREHENSIVE ([id number]) Indication:BMI 29.0-29.9,adult Start:20-Feb-2021 Instruction Type:Patient Education Patient Instructions Indication:BMI 29.0-29.9,adult Start:20-Feb-2021 Instruction Type:Provider Instructions for Treatment How to Access Health Informa tion Online using Patient Portal and [employer]rd [employer] Apps Indication:BMI 29.0-29.9,adult Start:20-Feb-2021 Instruction Type:Patient Education Patient Instructions Indication:Nonsmoker Start:25-Aug-2020 Instruction Type:Provider Instructions for Treatment How to Access Health Informa tion Online using Patient Portal and [employer]rd [employer] Apps Indication:Skin lesion Start:25-Aug-2020 Instruction Type:Patient Education Patient Instructions Indication:Nonsmoker Start:16-Aug-2020 Instruction Type:Provider Instructions for Treatment How to Access Health Informa tion Online using Patient Portal and [employer]rd [employer] Apps Indication:Nonsmoker Start:16-Aug-2020 Instruction Type:Patient Education Patient Instructions Indication:BMI 29.0-29.9,adult Start:31-Jul-2020 Instruction Type:Provider Instructions for Treatment How to Access Health Informa tion Online using Patient Portal and [employer]rd [employer] Apps Indication:Nonsmoker Start:31-Jul-2020 Instruction Type:Patient Education How to access health informa tion online Indication:Nonsmoker Start:17-Jan-2020 Instruction Type:Patient Education How to access health informa tion online - Detail Indication:Nonsmoker Start:17-Jan-2020 Instruction Type:Patient Education Patient Instructions Indication:Vitamin D deficiency Start:17-Jan-2020 Instruction Type:Provider Instructions for Treatment How to access health informa tion online Indication:Nonsmoker Start:29-Sep-2019 Instruction Type:Patient Education How to access health informa tion online - Detail Indication:Nonsmoker Start:29-Sep-2019 Instruction Type:Patient Education Patient Instructions Indication:Nonsmoker Start:29-Sep-2019 Instruction Type:Provider Instructions for Treatment How to access health informa tion online Indication:Nonsmoker Start:21-May-2019 Instruction Type:Patient Education How to access health informa tion online - Detail Indication:Nonsmoker Start:21-May-2019 Instruction Type:Patient Education Patient Instructions Indication:Nonsmoker Start:21-May-2019 Instruction Type:Provider Instructions for Treatment How to access health informa tion online Indication:Nonsmoker Start:05-May-2019 Instruction Type:Patient Education How to access health informa tion online - Detail Indication:Nonsmoker Start:05-May-2019 Instruction Type:Patient Education Patient Instructions Indication:Nonsmoker Start:05-May-2019 Instruction Type:Provider Instructions for Treatment How to access health informa tion online Indication:Nonsmoker Start:27-Nov-2018 Instruction Type:Patient Education How to access health informa tion online - Detail Indication:Nonsmoker Start:27-Nov-2018 Instruction Type:Patient Education Patient Instructions Indication:Nonsmoker Start:27-Nov-2018 Instruction Type:Provider Instructions for Treatment How to access health informa tion online - Detail Indication:Hypothyroid Start:20-Oct-2018 Instruction Type:Patient Education Patient Instructions Indication:Hypothyroid Start:20-Oct-2018 Instruction Type:Provider Instructions for Treatment How to access health informa tion online Indication:BMI 26.0-26.9,adult Start:14-Sep-2018 Instruction Type:Patient Education How to access health informa tion online - Detail Indication:BMI 26.0-26.9,adult Start:14-Sep-2018 Instruction Type:Patient Education Patient Instructions Indication:BMI 26.0-26.9,adult Start:14-Sep-2018 Instruction Type:Provider Instructions for Treatment How to access health informa tion online Indication:Nonsmoker Start:13-Jul-2018 Instruction Type:Patient Education How to access health informa tion online - Detail Indication:Nonsmoker Start:13-Jul-2018 Instruction Type:Patient Education Patient Instructions Indication:BMI 26.0-26.9,adult Start:13-Jul-2018 Instruction Type:Provider Instructions for Treatment How to access health informa tion online Indication:Nonsmoker Start:09-Jun-2018 Instruction Type:Patient Education How to access health informa tion online - Detail Indication:Nonsmoker Start:09-Jun-2018 Instruction Type:Patient Education Patient Instructions Indication:BMI 26.0-26.9,adult Start:09-Jun-2018 Instruction Type:Provider Instructions for Treatment How to access health informa tion online Indication:Nonsmoker Start:09-Dec-2017 Instruction Type:Patient Education How to access health informa tion online - Detail Indication:Nonsmoker Start:09-Dec-2017 Instruction Type:Patient Education Patient Instructions Indication:Nonsmoker Start:09-Dec-2017 Instruction Type:Provider Instructions for Treatment How to access health informa tion online Indication:Osteoporosis Start:30-Sep-2017 Instruction Type:Patient Education How to access health informa tion online - Detail Indication:Osteoporosis Start:30-Sep-2017 Instruction Type:Patient Education Patient Instructions Indication:Osteoporosis Start:30-Sep-2017 Instruction Type:Provider Instructions for Treatment How to access health informa tion online Indication:Osteoporosis Start:01-Sep-2017 Instruction Type:Patient Education How to access health informa tion online - Detail Indication:Osteoporosis Start:01-Sep-2017 Instruction Type:Patient Education Patient Instructions Indication:Osteoporosis Start:01-Sep-2017 Instruction Type:Provider Instructions for Treatment [facility]; [facility] Work Phone: Instructions* Name Dates Details Patient Instructions Indication:BMI 29.0-29.9,adult Start:27-Feb-2021 Instruction Type:Provider Instructions for Treatment How to Access Health Informa tion Online using Patient Portal and 3rd [employer] Apps Indication:BMI 29.0-29.9,adult Start:27-Feb-2021 Instruction Type:Patient Education DISCONTINUED - METABOLIC FRANKY RAMIREZ ([id number]) Indication:BMI 29.0-29.9,adult Start:20-Feb-2021 Instruction Type:Patient Education Patient Instructions Indication:BMI 29.0-29.9,adult Start:20-Feb-2021 Instruction Type:Provider Instructions for Treatment How to Access Health Informa tion Online using Patient Portal and [employer]rd [employer] Apps Indication:BMI 29.0-29.9,adult Start:20-Feb-2021 Instruction Type:Patient Education Patient Instructions Indication:Nonsmoker Start:25-Aug-2020 Instruction Type:Provider Instructions for Treatment How to Access Health Informa tion Online using Patient Portal and [employer]rd [employer] Apps Indication:Skin lesion Start:25-Aug-2020 Instruction Type:Patient Education Patient Instructions Indication:Nonsmoker Start:16-Aug-2020 Instruction Type:Provider Instructions for Treatment How to Access Health Informa tion Online using Patient Portal and [employer]rd [employer] Apps Indication:Nonsmoker Start:16-Aug-2020 Instruction Type:Patient Education Patient Instructions Indication:BMI 29.0-29.9,adult Start:31-Jul-2020 Instruction Type:Provider Instructions for Treatment How to Access Health Informa tion Online using Patient Portal and [employer]rd [employer] Apps Indication:Nonsmoker Start:31-Jul-2020 Instruction Type:Patient Education How to access health informa tion online Indication:Nonsmoker Start:17-Jan-2020 Instruction Type:Patient Education How to access health informa tion online - Detail Indication:Nonsmoker Start:17-Jan-2020 Instruction Type:Patient Education Patient Instructions Indication:Vitamin D deficiency Start:17-Jan-2020 Instruction Type:Provider Instructions for Treatment How to access health informa tion online Indication:Nonsmoker Start:29-Sep-2019 Instruction Type:Patient Education How to access health informa tion online - Detail Indication:Nonsmoker Start:29-Sep-2019 Instruction Type:Patient Education Patient Instructions Indication:Nonsmoker Start:29-Sep-2019 Instruction Type:Provider Instructions for Treatment How to access health informa tion online Indication:Nonsmoker Start:21-May-2019 Instruction Type:Patient Education How to access health informa tion online - Detail Indication:Nonsmoker Start:21-May-2019 Instruction Type:Patient Education Patient Instructions Indication:Nonsmoker Start:21-May-2019 Instruction Type:Provider Instructions for Treatment How to access health informa tion online Indication:Nonsmoker Start:05-May-2019 Instruction Type:Patient Education How to access health informa tion online - Detail Indication:Nonsmoker Start:05-May-2019 Instruction Type:Patient Education Patient Instructions Indication:Nonsmoker Start:05-May-2019 Instruction Type:Provider Instructions for Treatment How to access health informa tion online Indication:Nonsmoker Start:27-Nov-2018 Instruction Type:Patient Education How to access health informa tion online - Detail Indication:Nonsmoker Start:27-Nov-2018 Instruction Type:Patient Education Patient Instructions Indication:Nonsmoker Start:27-Nov-2018 Instruction Type:Provider Instructions for Treatment How to access health informa tion online - Detail Indication:Hypothyroid Start:20-Oct-2018 Instruction Type:Patient Education Patient Instructions Indication:Hypothyroid Start:20-Oct-2018 Instruction Type:Provider Instructions for Treatment How to access health informa tion online Indication:BMI 26.0-26.9,adult Start:14-Sep-2018 Instruction Type:Patient Education How to access health informa tion online - Detail Indication:BMI 26.0-26.9,adult Start:14-Sep-2018 Instruction Type:Patient Education Patient Instructions Indication:BMI 26.0-26.9,adult Start:14-Sep-2018 Instruction Type:Provider Instructions for Treatment How to access health informa tion online Indication:Nonsmoker Start:13-Jul-2018 Instruction Type:Patient Education How to access health informa tion online - Detail Indication:Nonsmoker Start:13-Jul-2018 Instruction Type:Patient Education Patient Instructions Indication:BMI 26.0-26.9,adult Start:13-Jul-2018 Instruction Type:Provider Instructions for Treatment How to access health informa tion online Indication:Nonsmoker Start:09-Jun-2018 Instruction Type:Patient Education How to access health informa tion online - Detail Indication:Nonsmoker Start:09-Jun-2018 Instruction Type:Patient Education Patient Instructions Indication:BMI 26.0-26.9,adult Start:09-Jun-2018 Instruction Type:Provider Instructions for Treatment How to access health informa tion online Indication:Nonsmoker Start:09-Dec-2017 Instruction Type:Patient Education How to access health informa tion online - Detail Indication:Nonsmoker Start:09-Dec-2017 Instruction Type:Patient Education Patient Instructions Indication:Nonsmoker Start:09-Dec-2017 Instruction Type:Provider Instructions for Treatment How to access health informa tion online Indication:Osteoporosis Start:30-Sep-2017 Instruction Type:Patient Education How to access health informa tion online - Detail Indication:Osteoporosis Start:30-Sep-2017 Instruction Type:Patient Education Patient Instructions Indication:Osteoporosis Start:30-Sep-2017 Instruction Type:Provider Instructions for Treatment How to access health informa tion online Indication:Osteoporosis Start:01-Sep-2017 Instruction Type:Patient Education How to access health informa tion online - Detail Indication:Osteoporosis Start:01-Sep-2017 Instruction Type:Patient Education Patient Instructions Indication:Osteoporosis Start:01-Sep-2017 Instruction Type:Provider Instructions for Treatment [facility]; [facility] Work Phone: Instructions* Name Dates Details Patient Instructions Indication:BMI 29.0-29.9,adult Start:27-Feb-2021 Instruction Type:Provider Instructions for Treatment How to Access Health Informa tion Online using Patient Portal and [employer]rd [employer] Apps Indication:BMI 29.0-29.9,adult Start:27-Feb-2021 Instruction Type:Patient Education DISCONTINUED - METABOLIC DOWNING EL, COMPREHENSIVE ([id number]) Indication:BMI 29.0-29.9,adult Start:20-Feb-2021 Instruction Type:Patient Education Patient Instructions Indication:BMI 29.0-29.9,adult Start:20-Feb-2021 Instruction Type:Provider Instructions for Treatment How to Access Health Informa tion Online using Patient Portal and 3rd [employer] Apps Indication:BMI 29.0-29.9,adult Start:20-Feb-2021 Instruction Type:Patient Education Patient Instructions Indication:Nonsmoker Start:25-Aug-2020 Instruction Type:Provider Instructions for Treatment How to Access Health Informa tion Online using Patient Portal and [employer]rd [employer] Apps Indication:Skin lesion Start:25-Aug-2020 Instruction Type:Patient Education Patient Instructions Indication:Nonsmoker Start:16-Aug-2020 Instruction Type:Provider Instructions for Treatment How to Access Health Informa tion Online using Patient Portal and 3rd [employer] Apps Indication:Nonsmoker Start:16-Aug-2020 Instruction Type:Patient Education Patient Instructions Indication:BMI 29.0-29.9,adult Start:31-Jul-2020 Instruction Type:Provider Instructions for Treatment How to Access Health Informa tion Online using Patient Portal and [employer]rd [employer] Apps Indication:Nonsmoker Start:31-Jul-2020 Instruction Type:Patient Education How to access health informa tion online Indication:Nonsmoker Start:17-Jan-2020 Instruction Type:Patient Education How to access health informa tion online - Detail Indication:Nonsmoker Start:17-Jan-2020 Instruction Type:Patient Education Patient Instructions Indication:Vitamin D deficiency Start:17-Jan-2020 Instruction Type:Provider Instructions for Treatment How to access health informa tion online Indication:Nonsmoker Start:29-Sep-2019 Instruction Type:Patient Education How to access health informa tion online - Detail Indication:Nonsmoker Start:29-Sep-2019 Instruction Type:Patient Education Patient Instructions Indication:Nonsmoker Start:29-Sep-2019 Instruction Type:Provider Instructions for Treatment How to access health informa tion online Indication:Nonsmoker Start:21-May-2019 Instruction Type:Patient Education How to access health informa tion online - Detail Indication:Nonsmoker Start:21-May-2019 Instruction Type:Patient Education Patient Instructions Indication:Nonsmoker Start:21-May-2019 Instruction Type:Provider Instructions for Treatment How to access health informa tion online Indication:Nonsmoker Start:05-May-2019 Instruction Type:Patient Education How to access health informa tion online - Detail Indication:Nonsmoker Start:05-May-2019 Instruction Type:Patient Education Patient Instructions Indication:Nonsmoker Start:05-May-2019 Instruction Type:Provider Instructions for Treatment How to access health informa tion online Indication:Nonsmoker Start:27-Nov-2018 Instruction Type:Patient Education How to access health informa tion online - Detail Indication:Nonsmoker Start:27-Nov-2018 Instruction Type:Patient Education Patient Instructions Indication:Nonsmoker Start:27-Nov-2018 Instruction Type:Provider Instructions for Treatment How to access health informa tion online - Detail Indication:Hypothyroid Start:20-Oct-2018 Instruction Type:Patient Education Patient Instructions Indication:Hypothyroid Start:20-Oct-2018 Instruction Type:Provider Instructions for Treatment How to access health informa tion online Indication:BMI 26.0-26.9,adult Start:14-Sep-2018 Instruction Type:Patient Education How to access health informa tion online - Detail Indication:BMI 26.0-26.9,adult Start:14-Sep-2018 Instruction Type:Patient Education Patient Instructions Indication:BMI 26.0-26.9,adult Start:14-Sep-2018 Instruction Type:Provider Instructions for Treatment How to access health informa tion online Indication:Nonsmoker Start:13-Jul-2018 Instruction Type:Patient Education How to access health informa tion online - Detail Indication:Nonsmoker Start:13-Jul-2018 Instruction Type:Patient Education Patient Instructions Indication:BMI 26.0-26.9,adult Start:13-Jul-2018 Instruction Type:Provider Instructions for Treatment How to access health informa tion online Indication:Nonsmoker Start:09-Jun-2018 Instruction Type:Patient Education How to access health informa tion online - Detail Indication:Nonsmoker Start:09-Jun-2018 Instruction Type:Patient Education Patient Instructions Indication:BMI 26.0-26.9,adult Start:09-Jun-2018 Instruction Type:Provider Instructions for Treatment How to access health informa tion online Indication:Nonsmoker Start:09-Dec-2017 Instruction Type:Patient Education How to access health informa tion online - Detail Indication:Nonsmoker Start:09-Dec-2017 Instruction Type:Patient Education Patient Instructions Indication:Nonsmoker Start:09-Dec-2017 Instruction Type:Provider Instructions for Treatment How to access health informa tion online Indication:Osteoporosis Start:30-Sep-2017 Instruction Type:Patient Education How to access health informa tion online - Detail Indication:Osteoporosis Start:30-Sep-2017 Instruction Type:Patient Education Patient Instructions Indication:Osteoporosis Start:30-Sep-2017 Instruction Type:Provider Instructions for Treatment How to access health informa tion online Indication:Osteoporosis Start:01-Sep-2017 Instruction Type:Patient Education How to access health informa tion online - Detail Indication:Osteoporosis Start:01-Sep-2017 Instruction Type:Patient Education Patient Instructions Indication:Osteoporosis Start:01-Sep-2017 Instruction Type:Provider Instructions for Treatment [facility]; [facility] Work Phone: Instructions* Name Dates Details How to Access Health Informa tion Online using Patient Portal and [employer] Apps Indication:Nonsmoker Start:01-Oct-2021 Instruction Type:Patient Education Patient Instructions Indication:Nonsmoker Start:01-Oct-2021 Instruction Type:Provider Instructions for Treatment Patient Instructions Indication:BMI 29.0-29.9,adult Start:27-Feb-2021 Instruction Type:Provider Instructions for Treatment How to Access Health Informa tion Online using Patient Portal and [employer] Apps Indication:BMI 29.0-29.9,adult Start:27-Feb-2021 Instruction Type:Patient Education DISCONTINUED - METABOLIC FRANKY RAMIREZ ([id number]) Indication:BMI 29.0-29.9,adult Start:20-Feb-2021 Instruction Type:Patient Education Patient Instructions Indication:BMI 29.0-29.9,adult Start:20-Feb-2021 Instruction Type:Provider Instructions for Treatment How to Access Health Informa tion Online using Patient Portal and [employer] Apps Indication:BMI 29.0-29.9,adult Start:20-Feb-2021 Instruction Type:Patient Education Patient Instructions Indication:Nonsmoker Start:25-Aug-2020 Instruction Type:Provider Instructions for Treatment How to Access Health Informa tion Online using Patient Portal and [employer] Apps Indication:Skin lesion Start:25-Aug-2020 Instruction Type:Patient Education Patient Instructions Indication:Nonsmoker Start:16-Aug-2020 Instruction Type:Provider Instructions for Treatment How to Access Health Informa tion Online using Patient Portal and [employer] Apps Indication:Nonsmoker Start:16-Aug-2020 Instruction Type:Patient Education Patient Instructions Indication:BMI 29.0-29.9,adult Start:31-Jul-2020 Instruction Type:Provider Instructions for Treatment How to Access Health Informa tion Online using Patient Portal and [employer] Apps Indication:Nonsmoker Start:31-Jul-2020 Instruction Type:Patient Education How to access health informa tion online Indication:Nonsmoker Start:17-Jan-2020 Instruction Type:Patient Education How to access health informa tion online - Detail Indication:Nonsmoker Start:17-Jan-2020 Instruction Type:Patient Education Patient Instructions Indication:Vitamin D deficiency Start:17-Jan-2020 Instruction Type:Provider Instructions for Treatment How to access health informa tion online Indication:Nonsmoker Start:29-Sep-2019 Instruction Type:Patient Education How to access health informa tion online - Detail Indication:Nonsmoker Start:29-Sep-2019 Instruction Type:Patient Education Patient Instructions Indication:Nonsmoker Start:29-Sep-2019 Instruction Type:Provider Instructions for Treatment How to access health informa tion online Indication:Nonsmoker Start:21-May-2019 Instruction Type:Patient Education How to access health informa tion online - Detail Indication:Nonsmoker Start:21-May-2019 Instruction Type:Patient Education Patient Instructions Indication:Nonsmoker Start:21-May-2019 Instruction Type:Provider Instructions for Treatment How to access health informa tion online Indication:Nonsmoker Start:05-May-2019 Instruction Type:Patient Education How to access health informa tion online - Detail Indication:Nonsmoker Start:05-May-2019 Instruction Type:Patient Education Patient Instructions Indication:Nonsmoker Start:05-May-2019 Instruction Type:Provider Instructions for Treatment How to access health informa tion online Indication:Nonsmoker Start:27-Nov-2018 Instruction Type:Patient Education How to access health informa tion online - Detail Indication:Nonsmoker Start:27-Nov-2018 Instruction Type:Patient Education Patient Instructions Indication:Nonsmoker Start:27-Nov-2018 Instruction Type:Provider Instructions for Treatment How to access health informa tion online - Detail Indication:Hypothyroid Start:20-Oct-2018 Instruction Type:Patient Education Patient Instructions Indication:Hypothyroid Start:20-Oct-2018 Instruction Type:Provider Instructions for Treatment How to access health informa tion online Indication:BMI 26.0-26.9,adult Start:14-Sep-2018 Instruction Type:Patient Education How to access health informa tion online - Detail Indication:BMI 26.0-26.9,adult Start:14-Sep-2018 Instruction Type:Patient Education Patient Instructions Indication:BMI 26.0-26.9,adult Start:14-Sep-2018 Instruction Type:Provider Instructions for Treatment How to access health informa tion online Indication:Nonsmoker Start:13-Jul-2018 Instruction Type:Patient Education How to access health informa tion online - Detail Indication:Nonsmoker Start:13-Jul-2018 Instruction Type:Patient Education Patient Instructions Indication:BMI 26.0-26.9,adult Start:13-Jul-2018 Instruction Type:Provider Instructions for Treatment How to access health informa tion online Indication:Nonsmoker Start:09-Jun-2018 Instruction Type:Patient Education How to access health informa tion online - Detail Indication:Nonsmoker Start:09-Jun-2018 Instruction Type:Patient Education Patient Instructions Indication:BMI 26.0-26.9,adult Start:09-Jun-2018 Instruction Type:Provider Instructions for Treatment How to access health informa tion online Indication:Nonsmoker Start:09-Dec-2017 Instruction Type:Patient Education How to access health informa tion online - Detail Indication:Nonsmoker Start:09-Dec-2017 Instruction Type:Patient Education Patient Instructions Indication:Nonsmoker Start:09-Dec-2017 Instruction Type:Provider Instructions for Treatment How to access health informa tion online Indication:Osteoporosis Start:30-Sep-2017 Instruction Type:Patient Education How to access health informa tion online - Detail Indication:Osteoporosis Start:30-Sep-2017 Instruction Type:Patient Education Patient Instructions Indication:Osteoporosis Start:30-Sep-2017 Instruction Type:Provider Instructions for Treatment How to access health informa tion online Indication:Osteoporosis Start:01-Sep-2017 Instruction Type:Patient Education How to access health informa tion online - Detail Indication:Osteoporosis Start:01-Sep-2017 Instruction Type:Patient Education Patient Instructions Indication:Osteoporosis Start:01-Sep-2017 Instruction Type:Provider Instructions for Treatment [facility]; [facility] Work Phone: Instructions* Name Dates Details How to Access Health Informa tion Online using Patient Portal and [employer] Apps Indication:Nonsmoker Start:01-Oct-2021 Instruction Type:Patient Education Patient Instructions Indication:Nonsmoker Start:01-Oct-2021 Instruction Type:Provider Instructions for Treatment Patient Instructions Indication:BMI 29.0-29.9,adult Start:27-Feb-2021 Instruction Type:Provider Instructions for Treatment How to Access Health Informa tion Online using Patient Portal and [employer] Apps Indication:BMI 29.0-29.9,adult Start:27-Feb-2021 Instruction Type:Patient Education DISCONTINUED - METABOLIC DOWN[place] EL, COMPREHENSIVE ([id number]) Indication:BMI 29.0-29.9,adult Start:20-Feb-2021 Instruction Type:Patient Education Patient Instructions Indication:BMI 29.0-29.9,adult Start:20-Feb-2021 Instruction Type:Provider Instructions for Treatment How to Access Health Informa tion Online using Patient Portal and [employer] Apps Indication:BMI 29.0-29.9,adult Start:20-Feb-2021 Instruction Type:Patient Education Patient Instructions Indication:Nonsmoker Start:25-Aug-2020 Instruction Type:Provider Instructions for Treatment How to Access Health Informa tion Online using Patient Portal and [employer] Apps Indication:Skin lesion Start:25-Aug-2020 Instruction Type:Patient Education Patient Instructions Indication:Nonsmoker Start:16-Aug-2020 Instruction Type:Provider Instructions for Treatment How to Access Health Informa tion Online using Patient Portal and [employer] Apps Indication:Nonsmoker Start:16-Aug-2020 Instruction Type:Patient Education Patient Instructions Indication:BMI 29.0-29.9,adult Start:31-Jul-2020 Instruction Type:Provider Instructions for Treatment How to Access Health Informa tion Online using Patient Portal and [employer] Apps Indication:Nonsmoker Start:31-Jul-2020 Instruction Type:Patient Education How to access health informa tion online Indication:Nonsmoker Start:17-Jan-2020 Instruction Type:Patient Education How to access health informa tion online - Detail Indication:Nonsmoker Start:17-Jan-2020 Instruction Type:Patient Education Patient Instructions Indication:Vitamin D deficiency Start:17-Jan-2020 Instruction Type:Provider Instructions for Treatment How to access health informa tion online Indication:Nonsmoker Start:29-Sep-2019 Instruction Type:Patient Education How to access health informa tion online - Detail Indication:Nonsmoker Start:29-Sep-2019 Instruction Type:Patient Education Patient Instructions Indication:Nonsmoker Start:29-Sep-2019 Instruction Type:Provider Instructions for Treatment How to access health informa tion online Indication:Nonsmoker Start:21-May-2019 Instruction Type:Patient Education How to access health informa tion online - Detail Indication:Nonsmoker Start:21-May-2019 Instruction Type:Patient Education Patient Instructions Indication:Nonsmoker Start:21-May-2019 Instruction Type:Provider Instructions for Treatment How to access health informa tion online Indication:Nonsmoker Start:05-May-2019 Instruction Type:Patient Education How to access health informa tion online - Detail Indication:Nonsmoker Start:05-May-2019 Instruction Type:Patient Education Patient Instructions Indication:Nonsmoker Start:05-May-2019 Instruction Type:Provider Instructions for Treatment How to access health informa tion online Indication:Nonsmoker Start:27-Nov-2018 Instruction Type:Patient Education How to access health informa tion online - Detail Indication:Nonsmoker Start:27-Nov-2018 Instruction Type:Patient Education Patient Instructions Indication:Nonsmoker Start:27-Nov-2018 Instruction Type:Provider Instructions for Treatment How to access health informa tion online - Detail Indication:Hypothyroid Start:20-Oct-2018 Instruction Type:Patient Education Patient Instructions Indication:Hypothyroid Start:20-Oct-2018 Instruction Type:Provider Instructions for Treatment How to access health informa tion online Indication:BMI 26.0-26.9,adult Start:14-Sep-2018 Instruction Type:Patient Education How to access health informa tion online - Detail Indication:BMI 26.0-26.9,adult Start:14-Sep-2018 Instruction Type:Patient Education Patient Instructions Indication:BMI 26.0-26.9,adult Start:14-Sep-2018 Instruction Type:Provider Instructions for Treatment How to access health informa tion online Indication:Nonsmoker Start:13-Jul-2018 Instruction Type:Patient Education How to access health informa tion online - Detail Indication:Nonsmoker Start:13-Jul-2018 Instruction Type:Patient Education Patient Instructions Indication:BMI 26.0-26.9,adult Start:13-Jul-2018 Instruction Type:Provider Instructions for Treatment How to access health informa tion online Indication:Nonsmoker Start:09-Jun-2018 Instruction Type:Patient Education How to access health informa tion online - Detail Indication:Nonsmoker Start:09-Jun-2018 Instruction Type:Patient Education Patient Instructions Indication:BMI 26.0-26.9,adult Start:09-Jun-2018 Instruction Type:Provider Instructions for Treatment How to access health informa tion online Indication:Nonsmoker Start:09-Dec-2017 Instruction Type:Patient Education How to access health informa tion online - Detail Indication:Nonsmoker Start:09-Dec-2017 Instruction Type:Patient Education Patient Instructions Indication:Nonsmoker Start:09-Dec-2017 Instruction Type:Provider Instructions for Treatment How to access health informa tion online Indication:Osteoporosis Start:30-Sep-2017 Instruction Type:Patient Education How to access health informa tion online - Detail Indication:Osteoporosis Start:30-Sep-2017 Instruction Type:Patient Education Patient Instructions Indication:Osteoporosis Start:30-Sep-2017 Instruction Type:Provider Instructions for Treatment How to access health informa tion online Indication:Osteoporosis Start:01-Sep-2017 Instruction Type:Patient Education How to access health informa tion online - Detail Indication:Osteoporosis Start:01-Sep-2017 Instruction Type:Patient Education Patient Instructions Indication:Osteoporosis Start:01-Sep-2017 Instruction Type:Provider Instructions for Treatment [facility]; [facility] Work Phone: Family History No Family History Records FoundUnknown Family Member Name Dates Details Father Comments:heart problems Status:Active Maternal Grandmother Comments: [facility] of what kind Status:Active Mother Comments:CHF Status:Active Paternal Grandmother Comments:diabetes Status:Active Unknown Family Member Name Dates Details Father Comments:heart problems Status:Active Maternal Grandmother Comments: [facility] of what kind Status:Active Mother Comments:CHF Status:Active Paternal Grandmother Comments:diabetes Status:Active Unknown Family Member Name Dates Details Father Comments:heart problems Status:Active Maternal Grandmother Comments: [facility] of what kind Status:Active Mother Comments:CHF Status:Active Paternal Grandmother Comments:diabetes Status:Active Unknown Family Member Name Dates Details Father Comments:heart problems Status:Active Maternal Grandmother Comments: [facility] of what kind Status:Active Mother Comments:CHF Status:Active Paternal Grandmother Comments:diabetes Status:Active Unknown Family Member Name Dates Details Father Comments:heart problems Status:Active Maternal Grandmother Comments: [facility] of what kind Status:Active Mother Comments:CHF Status:Active Paternal Grandmother Comments:diabetes Status:Active Unknown Family Member Name Dates Details Father Comments:heart problems Status:Active Maternal Grandmother Comments: [facility] of what kind Status:Active Mother Comments:CHF Status:Active Paternal Grandmother Comments:diabetes Status:Active Unknown Family Member Name Dates Details Father Comments:heart problems Status:Active Maternal Grandmother Comments: [facility] of what kind Status:Active Mother Comments:CHF Status:Active Paternal Grandmother Comments:diabetes Status:Active Unknown Family Member Name Dates Details Father Comments:heart problems Status:Active Maternal Grandmother Comments: [facility] of what kind Status:Active Mother Comments:CHF Status:Active Paternal Grandmother Comments:diabetes Status:Active Unknown Family Member Name Dates Details Father Comments:heart problems Status:Active Maternal Grandmother Comments: [facility] of what kind Status:Active Mother Comments:CHF Status:Active Paternal Grandmother Comments:diabetes Status:Active Unknown Family Member Name Dates Details Father Comments:heart problems Status:Active Maternal Grandmother Comments: [facility] of [facility] Status:Active Mother Comments:CHF Status:Active Paternal Grandmother Comments:diabetes Status:Active Unknown Family Member Name Dates Details Father Comments:heart problems Status:Active Maternal Grandmother Comments: [facility] of what kind Status:Active Mother Comments:CHF Status:Active Paternal Grandmother Comments:diabetes Status:Active Unknown Family Member Name Dates Details Father Comments:heart problems Status:Active Maternal Grandmother Comments: [facility] of what kind Status:Active Mother Comments:CHF Status:Active Paternal Grandmother Comments:diabetes Status:Active Unknown Family Member Name Dates Details Father Comments:heart problems Status:Active Maternal Grandmother Comments: [facility] of what kind Status:Active Mother Comments:CHF Status:Active Paternal Grandmother Comments:diabetes Status:Active Unknown Family Member Name Dates Details Father Comments:heart problems Status:Active Maternal Grandmother Comments: [facility] of what kind Status:Active Mother Comments:CHF Status:Active Paternal Grandmother Comments:diabetes Status:Active Unknown Family Member Name Dates Details Father Comments:heart problems Status:Active Maternal Grandmother Comments: [facility] of what kind Status:Active Mother Comments:CHF Status:Active Paternal Grandmother Comments:diabetes Status:Active Unknown Family Member Name Dates Details Father Comments:heart problems Status:Active Maternal Grandmother Comments: [facility] of what kind Status:Active Mother Comments:CHF Status:Active Paternal Grandmother Comments:diabetes Status:Active Unknown Family Member Name Dates Details Father Comments:heart problems Status:Active Maternal Grandmother Comments: [facility] of what kind Status:Active Mother Comments:CHF Status:Active Paternal Grandmother Comments:diabetes Status:Active Unknown Family Member Name Dates Details Father Comments:heart problems Status:Active Maternal Grandmother Comments: [facility] of what kind Status:Active Mother Comments:CHF Status:Active Paternal Grandmother Comments:diabetes Status:Active Unknown Family Member Name Dates Details Father Comments:heart problems Status:Active Maternal Grandmother Comments: [facility] of what kind Status:Active Mother Comments:CHF Status:Active Paternal Grandmother Comments:diabetes Status:Active Unknown Family Member Name Dates Details Father Comments:heart problems Status:Active Maternal Grandmother Comments: [facility] of what kind Status:Active Mother Comments:CHF Status:Active Paternal Grandmother Comments:diabetes Status:Active Unknown Family Member Name Dates Details Father Comments:heart problems Status:Active Maternal Grandmother Comments: [facility] of what kind Status:Active Mother Comments:CHF Status:Active Paternal Grandmother Comments:diabetes Status:Active Unknown Family Member Name Dates Details Father Comments:heart problems Status:Active Maternal Grandmother Comments: [facility] of what kind Status:Active Mother Comments:CHF Status:Active Paternal Grandmother Comments:diabetes Status:Active Unknown Family Member Name Dates Details Father Comments:heart problems Status:Active Maternal Grandmother Comments: [facility] of what kind Status:Active Mother Comments:CHF Status:Active Paternal Grandmother Comments:diabetes Status:Active Unknown Family Member Name Dates Details Father Comments:heart problems Status:Active Maternal Grandmother Comments: [facility] of what kind Status:Active Mother Comments:CHF Status:Active Paternal Grandmother Comments:diabetes Status:Active Unknown Family Member Name Dates Details Father Comments:heart problems Status:Active Maternal Grandmother Comments: [facility] of what kind Status:Active Mother Comments:CHF Status:Active Paternal Grandmother Comments:diabetes Status:Active Unknown Family Member Name Dates Details Father Comments:heart problems Status:Active Maternal Grandmother Comments: [facility] of what kind Status:Active Mother Comments:CHF Status:Active Paternal Grandmother Comments:diabetes Status:Active Unknown Family Member Name Dates Details Father Comments:heart problems Status:Active Maternal Grandmother Comments: [facility] of what kind Status:Active Mother Comments:CHF Status:Active Paternal Grandmother Comments:diabetes Status:Active Unknown Family Member Name Dates Details Father Comments:heart problems Status:Active Maternal Grandmother Comments: [facility] of what kind Status:Active Mother Comments:CHF Status:Active Paternal Grandmother Comments:diabetes Status:Active Unknown Family Member Name Dates Details Father Comments:heart problems Status:Active Maternal Grandmother Comments: [facility] of what kind Status:Active Mother Comments:CHF Status:Active Paternal Grandmother Comments:diabetes Status:Active Unknown Family Member Name Dates Details Father Comments:heart problems Status:Active Maternal Grandmother Comments: [facility] of what kind Status:Active Mother Comments:CHF Status:Active Paternal Grandmother Comments:diabetes Status:Active Unknown Family Member Name Dates Details Father Comments:heart problems Status:Active Maternal Grandmother Comments: [facility] of what kind Status:Active Mother Comments:CHF Status:Active Paternal Grandmother Comments:diabetes Status:Active Unknown Family Member Name Dates Details Father Comments:heart problems Status:Active Maternal Grandmother Comments: [facility] of what kind Status:Active Mother Comments:CHF Status:Active Paternal Grandmother Comments:diabetes Status:Active Unknown Family Member Name Dates Details Father Comments:heart problems Status:Active Maternal Grandmother Comments: [facility] of what kind Status:Active Mother Comments:CHF Status:Active Paternal Grandmother Comments:diabetes Status:Active Unknown Family Member Name Dates Details Father Comments:heart problems Status:Active Maternal Grandmother Comments: [facility] of what kind Status:Active Mother Comments:CHF Status:Active Paternal Grandmother Comments:diabetes Status:Active Unknown Family Member Name Dates Details Father Comments:heart problems Status:Active Maternal Grandmother Comments: [facility] of what kind Status:Active Mother Comments:CHF Status:Active Paternal Grandmother Comments:diabetes Status:Active Unknown Family Member Name Dates Details Father Comments:heart problems Status:Active Maternal Grandmother Comments: [facility] of what kind Status:Active Mother Comments:CHF Status:Active Paternal Grandmother Comments:diabetes Status:Active Unknown Family Member Name Dates Details Father Comments:heart problems Status:Active Maternal Grandmother Comments: [facility] of what kind Status:Active Mother Comments:CHF Status:Active Paternal Grandmother Comments:diabetes Status:Active Unknown Family Member Name Dates Details Father Comments:heart problems Status:Active Maternal Grandmother Comments: [facility] of what kind Status:Active Mother Comments:CHF Status:Active Paternal Grandmother Comments:diabetes Status:Active Unknown Family Member Name Dates Details Father Comments:heart problems Status:Active Maternal Grandmother Comments: [facility] of what kind Status:Active Mother Comments:CHF Status:Active Paternal Grandmother Comments:diabetes Status:Active Unknown Family Member Name Dates Details Father Comments:heart problems Status:Active Maternal Grandmother Comments: [facility] of what kind Status:Active Mother Comments:CHF Status:Active Paternal Grandmother Comments:diabetes Status:Active Unknown Family Member Name Dates Details Father Comments:heart problems Status:Active Maternal Grandmother Comments: [facility] of what kind Status:Active Mother Comments:CHF Status:Active Paternal Grandmother Comments:diabetes Status:Active Unknown Family Member Name Dates Details Father Comments:heart problems Status:Active Maternal Grandmother Comments: [facility] of what kind Status:Active Mother Comments:CHF Status:Active Paternal Grandmother Comments:diabetes Status:Active Unknown Family Member Name Dates Details Father Comments:heart problems Status:Active Maternal Grandmother Comments: from ca ncer unaware of what kind Status:Active Mother Comments:CHF Status:Active Paternal Grandmother Comments:diabetes Status:Active Unknown Family Member Name Dates Details Father Comments:heart problems Status:Active Maternal Grandmother Comments: from ca ncer unaware of what kind Status:Active Mother Comments:CHF Status:Active Paternal Grandmother Comments:diabetes Status:Active Unknown Family Member Name Dates Details Father Comments:heart problems Status:Active Maternal Grandmother Comments: from or ncer unaware of what kind Status:Active Mother Comments:CHF Status:Active Paternal Grandmother Comments:diabetes Status:Active Unknown Family Member Name Dates Details Father Comments:heart problems Status:Active Maternal Grandmother Comments: from ca ncer unaware of what kind Status:Active Mother Comments:CHF Status:Active Paternal Grandmother Comments:diabetes Status:Active Relationship Condition Age at Onset Recorded Date/T jerrod mother Cardiac disease Unknown Unknown Family Member Name Dates Details Father Comments:heart problems Status:Active Maternal Grandmother Comments: from or ncer unaware of what kind Status:Active Mother Comments:CHF Status:Active Paternal Grandmother Comments:diabetes Status:Active Unknown Family Member Name Dates Details Father Comments:heart problems Status:Active Maternal Grandmother Comments: from ca ncer unaware of what kind Status:Active Mother Comments:CHF Status:Active Paternal Grandmother Comments:diabetes Status:Active Unknown Family Member Name Dates Details Father Comments:heart problems Status:Active Maternal Grandmother Comments: from or ncer unaware of what kind Status:Active Mother Comments:CHF Status:Active Paternal Grandmother Comments:diabetes Status:Active Unknown Family Member Name Dates Details Father Comments:heart problems Status:Active Maternal Grandmother Comments: from ca ncer unaware of what kind Status:Active Mother Comments:CHF Status:Active Paternal Grandmother Comments:diabetes Status:Active Unknown Family Member Name Dates Details Father Comments:heart problems Status:Active Maternal Grandmother Comments: from ca ncer unaware of what kind Status:Active Mother Comments:CHF Status:Active Paternal Grandmother Comments:diabetes Status:Active Unknown Family Member Name Dates Details Father Comments:heart problems Status:Active Maternal Grandmother Comments: from ca ncer unaware of what kind Status:Active Mother Comments:CHF Status:Active Paternal Grandmother Comments:diabetes Status:Active Instructions Name Dates Details Nonsmoker : How to access he alth information online Indication:Nonsmoker Nonsmoker : How to access he alth information online - Detail Indication:Nonsmoker Nonsmoker : Patient Instruct ions Indication:Nonsmoker Osteoporosis : How to access health information online Indication:Osteoporosis Osteoporosis : How to access health information online - Detail Indication:Osteoporosis Osteoporosis : Patient Instr uctions Indication:Osteoporosis Name Dates Details Nonsmoker : How to access he alth information online Indication:Nonsmoker Nonsmoker : How to access he alth information online - Detail Indication:Nonsmoker Nonsmoker : Patient Instruct ions Indication:Nonsmoker Osteoporosis : How to access health information online Indication:Osteoporosis Osteoporosis : How to access health information online - Detail Indication:Osteoporosis Osteoporosis : Patient Instr uctions Indication:Osteoporosis Name Dates Details Nonsmoker : How to access he alth information online Indication:Nonsmoker Nonsmoker : How to access he alth information online - Detail Indication:Nonsmoker Nonsmoker : Patient Instruct ions Indication:Nonsmoker Osteoporosis : How to access health information online Indication:Osteoporosis Osteoporosis : How to access health information online - Detail Indication:Osteoporosis Osteoporosis : Patient Instr uctions Indication:Osteoporosis Name Dates Details Nonsmoker : How to access he alth information online Indication:Nonsmoker Nonsmoker : How to access he alth information online - Detail Indication:Nonsmoker Nonsmoker : Patient Instruct ions Indication:Nonsmoker Osteoporosis : How to access health information online Indication:Osteoporosis Osteoporosis : How to access health information online - Detail Indication:Osteoporosis Osteoporosis : Patient Instr uctions Indication:Osteoporosis Name Dates Details Nonsmoker : How to access he alth information online Indication:Nonsmoker Nonsmoker : How to access he alth information online - Detail Indication:Nonsmoker BMI 26.0-26.9,adult : Letien t Instructions Indication:BMI 26.0-26.9,adult Nonsmoker : Patient Instruct ions Indication:Nonsmoker Osteoporosis : How to access health information online Indication:Osteoporosis Osteoporosis : How to access health information online - Detail Indication:Osteoporosis Osteoporosis : Patient Instr uctions Indication:Osteoporosis Name Dates Details How to access health informa tion online Indication:Nonsmoker Start:13-Jul-2018 Instruction Type:Patient Education How to access health informa tion online - Detail Indication:Nonsmoker Start:13-Jul-2018 Instruction Type:Patient Education Patient Instructions Indication:BMI 26.0-26.9,adult Start:13-Jul-2018 Instruction Type:Provider Instructions for Treatment How to access health informa tion online Indication:Nonsmoker Start:09-Jun-2018 Instruction Type:Patient Education How to access health informa tion online - Detail Indication:Nonsmoker Start:09-Jun-2018 Instruction Type:Patient Education Patient Instructions Indication:BMI 26.0-26.9,adult Start:09-Jun-2018 Instruction Type:Provider Instructions for Treatment How to access health informa tion online Indication:Nonsmoker Start:09-Dec-2017 Instruction Type:Patient Education How to access health informa tion online - Detail Indication:Nonsmoker Start:09-Dec-2017 Instruction Type:Patient Education Patient Instructions Indication:Nonsmoker Start:09-Dec-2017 Instruction Type:Provider Instructions for Treatment How to access health informa tion online Indication:Osteoporosis Start:30-Sep-2017 Instruction Type:Patient Education How to access health informa tion online - Detail Indication:Osteoporosis Start:30-Sep-2017 Instruction Type:Patient Education Patient Instructions Indication:Osteoporosis Start:30-Sep-2017 Instruction Type:Provider Instructions for Treatment How to access health informa tion online Indication:Osteoporosis Start:01-Sep-2017 Instruction Type:Patient Education How to access health informa tion online - Detail Indication:Osteoporosis Start:01-Sep-2017 Instruction Type:Patient Education Patient Instructions Indication:Osteoporosis Start:01-Sep-2017 Instruction Type:Provider Instructions for Treatment Name Dates Details How to access health informa tion online Indication:Nonsmoker Start:13-Jul-2018 Instruction Type:Patient Education How to access health informa tion online - Detail Indication:Nonsmoker Start:13-Jul-2018 Instruction Type:Patient Education Patient Instructions Indication:BMI 26.0-26.9,adult Start:13-Jul-2018 Instruction Type:Provider Instructions for Treatment How to access health informa tion online Indication:Nonsmoker Start:09-Jun-2018 Instruction Type:Patient Education How to access health informa tion online - Detail Indication:Nonsmoker Start:09-Jun-2018 Instruction Type:Patient Education Patient Instructions Indication:BMI 26.0-26.9,adult Start:09-Jun-2018 Instruction Type:Provider Instructions for Treatment How to access health informa tion online Indication:Nonsmoker Start:09-Dec-2017 Instruction Type:Patient Education How to access health informa tion online - Detail Indication:Nonsmoker Start:09-Dec-2017 Instruction Type:Patient Education Patient Instructions Indication:Nonsmoker Start:09-Dec-2017 Instruction Type:Provider Instructions for Treatment How to access health informa tion online Indication:Osteoporosis Start:30-Sep-2017 Instruction Type:Patient Education How to access health informa tion online - Detail Indication:Osteoporosis Start:30-Sep-2017 Instruction Type:Patient Education Patient Instructions Indication:Osteoporosis Start:30-Sep-2017 Instruction Type:Provider Instructions for Treatment How to access health informa tion online Indication:Osteoporosis Start:01-Sep-2017 Instruction Type:Patient Education How to access health informa tion online - Detail Indication:Osteoporosis Start:01-Sep-2017 Instruction Type:Patient Education Patient Instructions Indication:Osteoporosis Start:01-Sep-2017 Instruction Type:Provider Instructions for Treatment Name Dates Details How to access health informa tion online Indication:Nonsmoker Start:13-Jul-2018 Instruction Type:Patient Education How to access health informa tion online - Detail Indication:Nonsmoker Start:13-Jul-2018 Instruction Type:Patient Education Patient Instructions Indication:BMI 26.0-26.9,adult Start:13-Jul-2018 Instruction Type:Provider Instructions for Treatment How to access health informa tion online Indication:Nonsmoker Start:09-Jun-2018 Instruction Type:Patient Education How to access health informa tion online - Detail Indication:Nonsmoker Start:09-Jun-2018 Instruction Type:Patient Education Patient Instructions Indication:BMI 26.0-26.9,adult Start:09-Jun-2018 Instruction Type:Provider Instructions for Treatment How to access health informa tion online Indication:Nonsmoker Start:09-Dec-2017 Instruction Type:Patient Education How to access health informa tion online - Detail Indication:Nonsmoker Start:09-Dec-2017 Instruction Type:Patient Education Patient Instructions Indication:Nonsmoker Start:09-Dec-2017 Instruction Type:Provider Instructions for Treatment How to access health informa tion online Indication:Osteoporosis Start:30-Sep-2017 Instruction Type:Patient Education How to access health informa tion online - Detail Indication:Osteoporosis Start:30-Sep-2017 Instruction Type:Patient Education Patient Instructions Indication:Osteoporosis Start:30-Sep-2017 Instruction Type:Provider Instructions for Treatment How to access health informa tion online Indication:Osteoporosis Start:01-Sep-2017 Instruction Type:Patient Education How to access health informa tion online - Detail Indication:Osteoporosis Start:01-Sep-2017 Instruction Type:Patient Education Patient Instructions Indication:Osteoporosis Start:01-Sep-2017 Instruction Type:Provider Instructions for Treatment Name Dates Details How to access health informa tion online Indication:BMI 26.0-26.9,adult Start:14-Sep-2018 Instruction Type:Patient Education How to access health informa tion online - Detail Indication:BMI 26.0-26.9,adult Start:14-Sep-2018 Instruction Type:Patient Education Patient Instructions Indication:BMI 26.0-26.9,adult Start:14-Sep-2018 Instruction Type:Provider Instructions for Treatment How to access health informa tion online Indication:Nonsmoker Start:13-Jul-2018 Instruction Type:Patient Education How to access health informa tion online - Detail Indication:Nonsmoker Start:13-Jul-2018 Instruction Type:Patient Education Patient Instructions Indication:BMI 26.0-26.9,adult Start:13-Jul-2018 Instruction Type:Provider Instructions for Treatment How to access health informa tion online Indication:Nonsmoker Start:09-Jun-2018 Instruction Type:Patient Education How to access health informa tion online - Detail Indication:Nonsmoker Start:09-Jun-2018 Instruction Type:Patient Education Patient Instructions Indication:BMI 26.0-26.9,adult Start:09-Jun-2018 Instruction Type:Provider Instructions for Treatment How to access health informa tion online Indication:Nonsmoker Start:09-Dec-2017 Instruction Type:Patient Education How to access health informa tion online - Detail Indication:Nonsmoker Start:09-Dec-2017 Instruction Type:Patient Education Patient Instructions Indication:Nonsmoker Start:09-Dec-2017 Instruction Type:Provider Instructions for Treatment How to access health informa tion online Indication:Osteoporosis Start:30-Sep-2017 Instruction Type:Patient Education How to access health informa tion online - Detail Indication:Osteoporosis Start:30-Sep-2017 Instruction Type:Patient Education Patient Instructions Indication:Osteoporosis Start:30-Sep-2017 Instruction Type:Provider Instructions for Treatment How to access health informa tion online Indication:Osteoporosis Start:01-Sep-2017 Instruction Type:Patient Education How to access health informa tion online - Detail Indication:Osteoporosis Start:01-Sep-2017 Instruction Type:Patient Education Patient Instructions Indication:Osteoporosis Start:01-Sep-2017 Instruction Type:Provider Instructions for Treatment Name Dates Details How to access health informa tion online - Detail Indication:Hypothyroid Start:20-Oct-2018 Instruction Type:Patient Education Patient Instructions Indication:Hypothyroid Start:20-Oct-2018 Instruction Type:Provider Instructions for Treatment How to access health informa tion online Indication:BMI 26.0-26.9,adult Start:14-Sep-2018 Instruction Type:Patient Education How to access health informa tion online - Detail Indication:BMI 26.0-26.9,adult Start:14-Sep-2018 Instruction Type:Patient Education Patient Instructions Indication:BMI 26.0-26.9,adult Start:14-Sep-2018 Instruction Type:Provider Instructions for Treatment How to access health informa tion online Indication:Nonsmoker Start:13-Jul-2018 Instruction Type:Patient Education How to access health informa tion online - Detail Indication:Nonsmoker Start:13-Jul-2018 Instruction Type:Patient Education Patient Instructions Indication:BMI 26.0-26.9,adult Start:13-Jul-2018 Instruction Type:Provider Instructions for Treatment How to access health informa tion online Indication:Nonsmoker Start:09-Jun-2018 Instruction Type:Patient Education How to access health informa tion online - Detail Indication:Nonsmoker Start:09-Jun-2018 Instruction Type:Patient Education Patient Instructions Indication:BMI 26.0-26.9,adult Start:09-Jun-2018 Instruction Type:Provider Instructions for Treatment How to access health informa tion online Indication:Nonsmoker Start:09-Dec-2017 Instruction Type:Patient Education How to access health informa tion online - Detail Indication:Nonsmoker Start:09-Dec-2017 Instruction Type:Patient Education Patient Instructions Indication:Nonsmoker Start:09-Dec-2017 Instruction Type:Provider Instructions for Treatment How to access health informa tion online Indication:Osteoporosis Start:30-Sep-2017 Instruction Type:Patient Education How to access health informa tion online - Detail Indication:Osteoporosis Start:30-Sep-2017 Instruction Type:Patient Education Patient Instructions Indication:Osteoporosis Start:30-Sep-2017 Instruction Type:Provider Instructions for Treatment How to access health informa tion online Indication:Osteoporosis Start:01-Sep-2017 Instruction Type:Patient Education How to access health informa tion online - Detail Indication:Osteoporosis Start:01-Sep-2017 Instruction Type:Patient Education Patient Instructions Indication:Osteoporosis Start:01-Sep-2017 Instruction Type:Provider Instructions for Treatment Name Dates Details How to access health informa tion online Indication:Nonsmoker Start:27-Nov-2018 Instruction Type:Patient Education How to access health informa tion online - Detail Indication:Nonsmoker Start:27-Nov-2018 Instruction Type:Patient Education Patient Instructions Indication:Nonsmoker Start:27-Nov-2018 Instruction Type:Provider Instructions for Treatment How to access health informa tion online - Detail Indication:Hypothyroid Start:20-Oct-2018 Instruction Type:Patient Education Patient Instructions Indication:Hypothyroid Start:20-Oct-2018 Instruction Type:Provider Instructions for Treatment How to access health informa tion online Indication:BMI 26.0-26.9,adult Start:14-Sep-2018 Instruction Type:Patient Education How to access health informa tion online - Detail Indication:BMI 26.0-26.9,adult Start:14-Sep-2018 Instruction Type:Patient Education Patient Instructions Indication:BMI 26.0-26.9,adult Start:14-Sep-2018 Instruction Type:Provider Instructions for Treatment How to access health informa tion online Indication:Nonsmoker Start:13-Jul-2018 Instruction Type:Patient Education How to access health informa tion online - Detail Indication:Nonsmoker Start:13-Jul-2018 Instruction Type:Patient Education Patient Instructions Indication:BMI 26.0-26.9,adult Start:13-Jul-2018 Instruction Type:Provider Instructions for Treatment How to access health informa tion online Indication:Nonsmoker Start:09-Jun-2018 Instruction Type:Patient Education How to access health informa tion online - Detail Indication:Nonsmoker Start:09-Jun-2018 Instruction Type:Patient Education Patient Instructions Indication:BMI 26.0-26.9,adult Start:09-Jun-2018 Instruction Type:Provider Instructions for Treatment How to access health informa tion online Indication:Nonsmoker Start:09-Dec-2017 Instruction Type:Patient Education How to access health informa tion online - Detail Indication:Nonsmoker Start:09-Dec-2017 Instruction Type:Patient Education Patient Instructions Indication:Nonsmoker Start:09-Dec-2017 Instruction Type:Provider Instructions for Treatment How to access health informa tion online Indication:Osteoporosis Start:30-Sep-2017 Instruction Type:Patient Education How to access health informa tion online - Detail Indication:Osteoporosis Start:30-Sep-2017 Instruction Type:Patient Education Patient Instructions Indication:Osteoporosis Start:30-Sep-2017 Instruction Type:Provider Instructions for Treatment How to access health informa tion online Indication:Osteoporosis Start:01-Sep-2017 Instruction Type:Patient Education How to access health informa tion online - Detail Indication:Osteoporosis Start:01-Sep-2017 Instruction Type:Patient Education Patient Instructions Indication:Osteoporosis Start:01-Sep-2017 Instruction Type:Provider Instructions for Treatment Name Dates Details How to access health informa tion online Indication:Nonsmoker Start:27-Nov-2018 Instruction Type:Patient Education How to access health informa tion online - Detail Indication:Nonsmoker Start:27-Nov-2018 Instruction Type:Patient Education Patient Instructions Indication:Nonsmoker Start:27-Nov-2018 Instruction Type:Provider Instructions for Treatment How to access health informa tion online - Detail Indication:Hypothyroid Start:20-Oct-2018 Instruction Type:Patient Education Patient Instructions Indication:Hypothyroid Start:20-Oct-2018 Instruction Type:Provider Instructions for Treatment How to access health informa tion online Indication:BMI 26.0-26.9,adult Start:14-Sep-2018 Instruction Type:Patient Education How to access health informa tion online - Detail Indication:BMI 26.0-26.9,adult Start:14-Sep-2018 Instruction Type:Patient Education Patient Instructions Indication:BMI 26.0-26.9,adult Start:14-Sep-2018 Instruction Type:Provider Instructions for Treatment How to access health informa tion online Indication:Nonsmoker Start:13-Jul-2018 Instruction Type:Patient Education How to access health informa tion online - Detail Indication:Nonsmoker Start:13-Jul-2018 Instruction Type:Patient Education Patient Instructions Indication:BMI 26.0-26.9,adult Start:13-Jul-2018 Instruction Type:Provider Instructions for Treatment How to access health informa tion online Indication:Nonsmoker Start:09-Jun-2018 Instruction Type:Patient Education How to access health informa tion online - Detail Indication:Nonsmoker Start:09-Jun-2018 Instruction Type:Patient Education Patient Instructions Indication:BMI 26.0-26.9,adult Start:09-Jun-2018 Instruction Type:Provider Instructions for Treatment How to access health informa tion online Indication:Nonsmoker Start:09-Dec-2017 Instruction Type:Patient Education How to access health informa tion online - Detail Indication:Nonsmoker Start:09-Dec-2017 Instruction Type:Patient Education Patient Instructions Indication:Nonsmoker Start:09-Dec-2017 Instruction Type:Provider Instructions for Treatment How to access health informa tion online Indication:Osteoporosis Start:30-Sep-2017 Instruction Type:Patient Education How to access health informa tion online - Detail Indication:Osteoporosis Start:30-Sep-2017 Instruction Type:Patient Education Patient Instructions Indication:Osteoporosis Start:30-Sep-2017 Instruction Type:Provider Instructions for Treatment How to access health informa tion online Indication:Osteoporosis Start:01-Sep-2017 Instruction Type:Patient Education How to access health informa tion online - Detail Indication:Osteoporosis Start:01-Sep-2017 Instruction Type:Patient Education Patient Instructions Indication:Osteoporosis Start:01-Sep-2017 Instruction Type:Provider Instructions for Treatment Name Dates Details How to access health informa tion online Indication:Nonsmoker Start:27-Nov-2018 Instruction Type:Patient Education How to access health informa tion online - Detail Indication:Nonsmoker Start:27-Nov-2018 Instruction Type:Patient Education Patient Instructions Indication:Nonsmoker Start:27-Nov-2018 Instruction Type:Provider Instructions for Treatment How to access health informa tion online - Detail Indication:Hypothyroid Start:20-Oct-2018 Instruction Type:Patient Education Patient Instructions Indication:Hypothyroid Start:20-Oct-2018 Instruction Type:Provider Instructions for Treatment How to access health informa tion online Indication:BMI 26.0-26.9,adult Start:14-Sep-2018 Instruction Type:Patient Education How to access health informa tion online - Detail Indication:BMI 26.0-26.9,adult Start:14-Sep-2018 Instruction Type:Patient Education Patient Instructions Indication:BMI 26.0-26.9,adult Start:14-Sep-2018 Instruction Type:Provider Instructions for Treatment How to access health informa tion online Indication:Nonsmoker Start:13-Jul-2018 Instruction Type:Patient Education How to access health informa tion online - Detail Indication:Nonsmoker Start:13-Jul-2018 Instruction Type:Patient Education Patient Instructions Indication:BMI 26.0-26.9,adult Start:13-Jul-2018 Instruction Type:Provider Instructions for Treatment How to access health informa tion online Indication:Nonsmoker Start:09-Jun-2018 Instruction Type:Patient Education How to access health informa tion online - Detail Indication:Nonsmoker Start:09-Jun-2018 Instruction Type:Patient Education Patient Instructions Indication:BMI 26.0-26.9,adult Start:09-Jun-2018 Instruction Type:Provider Instructions for Treatment How to access health informa tion online Indication:Nonsmoker Start:09-Dec-2017 Instruction Type:Patient Education How to access health informa tion online - Detail Indication:Nonsmoker Start:09-Dec-2017 Instruction Type:Patient Education Patient Instructions Indication:Nonsmoker Start:09-Dec-2017 Instruction Type:Provider Instructions for Treatment How to access health informa tion online Indication:Osteoporosis Start:30-Sep-2017 Instruction Type:Patient Education How to access health informa tion online - Detail Indication:Osteoporosis Start:30-Sep-2017 Instruction Type:Patient Education Patient Instructions Indication:Osteoporosis Start:30-Sep-2017 Instruction Type:Provider Instructions for Treatment How to access health informa tion online Indication:Osteoporosis Start:01-Sep-2017 Instruction Type:Patient Education How to access health informa tion online - Detail Indication:Osteoporosis Start:01-Sep-2017 Instruction Type:Patient Education Patient Instructions Indication:Osteoporosis Start:01-Sep-2017 Instruction Type:Provider Instructions for Treatment Name Dates Details How to access health informa tion online Indication:Nonsmoker Start:27-Nov-2018 Instruction Type:Patient Education How to access health informa tion online - Detail Indication:Nonsmoker Start:27-Nov-2018 Instruction Type:Patient Education Patient Instructions Indication:Nonsmoker Start:27-Nov-2018 Instruction Type:Provider Instructions for Treatment How to access health informa tion online - Detail Indication:Hypothyroid Start:20-Oct-2018 Instruction Type:Patient Education Patient Instructions Indication:Hypothyroid Start:20-Oct-2018 Instruction Type:Provider Instructions for Treatment How to access health informa tion online Indication:BMI 26.0-26.9,adult Start:14-Sep-2018 Instruction Type:Patient Education How to access health informa tion online - Detail Indication:BMI 26.0-26.9,adult Start:14-Sep-2018 Instruction Type:Patient Education Patient Instructions Indication:BMI 26.0-26.9,adult Start:14-Sep-2018 Instruction Type:Provider Instructions for Treatment How to access health informa tion online Indication:Nonsmoker Start:13-Jul-2018 Instruction Type:Patient Education How to access health informa tion online - Detail Indication:Nonsmoker Start:13-Jul-2018 Instruction Type:Patient Education Patient Instructions Indication:BMI 26.0-26.9,adult Start:13-Jul-2018 Instruction Type:Provider Instructions for Treatment How to access health informa tion online Indication:Nonsmoker Start:09-Jun-2018 Instruction Type:Patient Education How to access health informa tion online - Detail Indication:Nonsmoker Start:09-Jun-2018 Instruction Type:Patient Education Patient Instructions Indication:BMI 26.0-26.9,adult Start:09-Jun-2018 Instruction Type:Provider Instructions for Treatment How to access health informa tion online Indication:Nonsmoker Start:09-Dec-2017 Instruction Type:Patient Education How to access health informa tion online - Detail Indication:Nonsmoker Start:09-Dec-2017 Instruction Type:Patient Education Patient Instructions Indication:Nonsmoker Start:09-Dec-2017 Instruction Type:Provider Instructions for Treatment How to access health informa tion online Indication:Osteoporosis Start:30-Sep-2017 Instruction Type:Patient Education How to access health informa tion online - Detail Indication:Osteoporosis Start:30-Sep-2017 Instruction Type:Patient Education Patient Instructions Indication:Osteoporosis Start:30-Sep-2017 Instruction Type:Provider Instructions for Treatment How to access health informa tion online Indication:Osteoporosis Start:01-Sep-2017 Instruction Type:Patient Education How to access health informa tion online - Detail Indication:Osteoporosis Start:01-Sep-2017 Instruction Type:Patient Education Patient Instructions Indication:Osteoporosis Start:01-Sep-2017 Instruction Type:Provider Instructions for Treatment Name Dates Details How to access health informa tion online Indication:Nonsmoker Start:27-Nov-2018 Instruction Type:Patient Education How to access health informa tion online - Detail Indication:Nonsmoker Start:27-Nov-2018 Instruction Type:Patient Education Patient Instructions Indication:Nonsmoker Start:27-Nov-2018 Instruction Type:Provider Instructions for Treatment How to access health informa tion online - Detail Indication:Hypothyroid Start:20-Oct-2018 Instruction Type:Patient Education Patient Instructions Indication:Hypothyroid Start:20-Oct-2018 Instruction Type:Provider Instructions for Treatment How to access health informa tion online Indication:BMI 26.0-26.9,adult Start:14-Sep-2018 Instruction Type:Patient Education How to access health informa tion online - Detail Indication:BMI 26.0-26.9,adult Start:14-Sep-2018 Instruction Type:Patient Education Patient Instructions Indication:BMI 26.0-26.9,adult Start:14-Sep-2018 Instruction Type:Provider Instructions for Treatment How to access health informa tion online Indication:Nonsmoker Start:13-Jul-2018 Instruction Type:Patient Education How to access health informa tion online - Detail Indication:Nonsmoker Start:13-Jul-2018 Instruction Type:Patient Education Patient Instructions Indication:BMI 26.0-26.9,adult Start:13-Jul-2018 Instruction Type:Provider Instructions for Treatment How to access health informa tion online Indication:Nonsmoker Start:09-Jun-2018 Instruction Type:Patient Education How to access health informa tion online - Detail Indication:Nonsmoker Start:09-Jun-2018 Instruction Type:Patient Education Patient Instructions Indication:BMI 26.0-26.9,adult Start:09-Jun-2018 Instruction Type:Provider Instructions for Treatment How to access health informa tion online Indication:Nonsmoker Start:09-Dec-2017 Instruction Type:Patient Education How to access health informa tion online - Detail Indication:Nonsmoker Start:09-Dec-2017 Instruction Type:Patient Education Patient Instructions Indication:Nonsmoker Start:09-Dec-2017 Instruction Type:Provider Instructions for Treatment How to access health informa tion online Indication:Osteoporosis Start:30-Sep-2017 Instruction Type:Patient Education How to access health informa tion online - Detail Indication:Osteoporosis Start:30-Sep-2017 Instruction Type:Patient Education Patient Instructions Indication:Osteoporosis Start:30-Sep-2017 Instruction Type:Provider Instructions for Treatment How to access health informa tion online Indication:Osteoporosis Start:01-Sep-2017 Instruction Type:Patient Education How to access health informa tion online - Detail Indication:Osteoporosis Start:01-Sep-2017 Instruction Type:Patient Education Patient Instructions Indication:Osteoporosis Start:01-Sep-2017 Instruction Type:Provider Instructions for Treatment Name Dates Details How to access health informa tion online Indication:Nonsmoker Start:29-Sep-2019 Instruction Type:Patient Education How to access health informa tion online - Detail Indication:Nonsmoker Start:29-Sep-2019 Instruction Type:Patient Education Patient Instructions Indication:Nonsmoker Start:29-Sep-2019 Instruction Type:Provider Instructions for Treatment How to access health informa tion online Indication:Nonsmoker Start:21-May-2019 Instruction Type:Patient Education How to access health informa tion online - Detail Indication:Nonsmoker Start:21-May-2019 Instruction Type:Patient Education Patient Instructions Indication:Nonsmoker Start:21-May-2019 Instruction Type:Provider Instructions for Treatment How to access health informa tion online Indication:Nonsmoker Start:05-May-2019 Instruction Type:Patient Education How to access health informa tion online - Detail Indication:Nonsmoker Start:05-May-2019 Instruction Type:Patient Education Patient Instructions Indication:Nonsmoker Start:05-May-2019 Instruction Type:Provider Instructions for Treatment How to access health informa tion online Indication:Nonsmoker Start:27-Nov-2018 Instruction Type:Patient Education How to access health informa tion online - Detail Indication:Nonsmoker Start:27-Nov-2018 Instruction Type:Patient Education Patient Instructions Indication:Nonsmoker Start:27-Nov-2018 Instruction Type:Provider Instructions for Treatment How to access health informa tion online - Detail Indication:Hypothyroid Start:20-Oct-2018 Instruction Type:Patient Education Patient Instructions Indication:Hypothyroid Start:20-Oct-2018 Instruction Type:Provider Instructions for Treatment How to access health informa tion online Indication:BMI 26.0-26.9,adult Start:14-Sep-2018 Instruction Type:Patient Education How to access health informa tion online - Detail Indication:BMI 26.0-26.9,adult Start:14-Sep-2018 Instruction Type:Patient Education Patient Instructions Indication:BMI 26.0-26.9,adult Start:14-Sep-2018 Instruction Type:Provider Instructions for Treatment How to access health informa tion online Indication:Nonsmoker Start:13-Jul-2018 Instruction Type:Patient Education How to access health informa tion online - Detail Indication:Nonsmoker Start:13-Jul-2018 Instruction Type:Patient Education Patient Instructions Indication:BMI 26.0-26.9,adult Start:13-Jul-2018 Instruction Type:Provider Instructions for Treatment How to access health informa tion online Indication:Nonsmoker Start:09-Jun-2018 Instruction Type:Patient Education How to access health informa tion online - Detail Indication:Nonsmoker Start:09-Jun-2018 Instruction Type:Patient Education Patient Instructions Indication:BMI 26.0-26.9,adult Start:09-Jun-2018 Instruction Type:Provider Instructions for Treatment How to access health informa tion online Indication:Nonsmoker Start:09-Dec-2017 Instruction Type:Patient Education How to access health informa tion online - Detail Indication:Nonsmoker Start:09-Dec-2017 Instruction Type:Patient Education Patient Instructions Indication:Nonsmoker Start:09-Dec-2017 Instruction Type:Provider Instructions for Treatment How to access health informa tion online Indication:Osteoporosis Start:30-Sep-2017 Instruction Type:Patient Education How to access health informa tion online - Detail Indication:Osteoporosis Start:30-Sep-2017 Instruction Type:Patient Education Patient Instructions Indication:Osteoporosis Start:30-Sep-2017 Instruction Type:Provider Instructions for Treatment How to access health informa tion online Indication:Osteoporosis Start:01-Sep-2017 Instruction Type:Patient Education How to access health informa tion online - Detail Indication:Osteoporosis Start:01-Sep-2017 Instruction Type:Patient Education Patient Instructions Indication:Osteoporosis Start:01-Sep-2017 Instruction Type:Provider Instructions for Treatment Name Dates Details How to access health informa tion online Indication:Nonsmoker Start:29-Sep-2019 Instruction Type:Patient Education How to access health informa tion online - Detail Indication:Nonsmoker Start:29-Sep-2019 Instruction Type:Patient Education Patient Instructions Indication:Nonsmoker Start:29-Sep-2019 Instruction Type:Provider Instructions for Treatment How to access health informa tion online Indication:Nonsmoker Start:21-May-2019 Instruction Type:Patient Education How to access health informa tion online - Detail Indication:Nonsmoker Start:21-May-2019 Instruction Type:Patient Education Patient Instructions Indication:Nonsmoker Start:21-May-2019 Instruction Type:Provider Instructions for Treatment How to access health informa tion online Indication:Nonsmoker Start:05-May-2019 Instruction Type:Patient Education How to access health informa tion online - Detail Indication:Nonsmoker Start:05-May-2019 Instruction Type:Patient Education Patient Instructions Indication:Nonsmoker Start:05-May-2019 Instruction Type:Provider Instructions for Treatment How to access health informa tion online Indication:Nonsmoker Start:27-Nov-2018 Instruction Type:Patient Education How to access health informa tion online - Detail Indication:Nonsmoker Start:27-Nov-2018 Instruction Type:Patient Education Patient Instructions Indication:Nonsmoker Start:27-Nov-2018 Instruction Type:Provider Instructions for Treatment How to access health informa tion online - Detail Indication:Hypothyroid Start:20-Oct-2018 Instruction Type:Patient Education Patient Instructions Indication:Hypothyroid Start:20-Oct-2018 Instruction Type:Provider Instructions for Treatment How to access health informa tion online Indication:BMI 26.0-26.9,adult Start:14-Sep-2018 Instruction Type:Patient Education How to access health informa tion online - Detail Indication:BMI 26.0-26.9,adult Start:14-Sep-2018 Instruction Type:Patient Education Patient Instructions Indication:BMI 26.0-26.9,adult Start:14-Sep-2018 Instruction Type:Provider Instructions for Treatment How to access health informa tion online Indication:Nonsmoker Start:13-Jul-2018 Instruction Type:Patient Education How to access health informa tion online - Detail Indication:Nonsmoker Start:13-Jul-2018 Instruction Type:Patient Education Patient Instructions Indication:BMI 26.0-26.9,adult Start:13-Jul-2018 Instruction Type:Provider Instructions for Treatment How to access health informa tion online Indication:Nonsmoker Start:09-Jun-2018 Instruction Type:Patient Education How to access health informa tion online - Detail Indication:Nonsmoker Start:09-Jun-2018 Instruction Type:Patient Education Patient Instructions Indication:BMI 26.0-26.9,adult Start:09-Jun-2018 Instruction Type:Provider Instructions for Treatment How to access health informa tion online Indication:Nonsmoker Start:09-Dec-2017 Instruction Type:Patient Education How to access health informa tion online - Detail Indication:Nonsmoker Start:09-Dec-2017 Instruction Type:Patient Education Patient Instructions Indication:Nonsmoker Start:09-Dec-2017 Instruction Type:Provider Instructions for Treatment How to access health informa tion online Indication:Osteoporosis Start:30-Sep-2017 Instruction Type:Patient Education How to access health informa tion online - Detail Indication:Osteoporosis Start:30-Sep-2017 Instruction Type:Patient Education Patient Instructions Indication:Osteoporosis Start:30-Sep-2017 Instruction Type:Provider Instructions for Treatment How to access health informa tion online Indication:Osteoporosis Start:01-Sep-2017 Instruction Type:Patient Education How to access health informa tion online - Detail Indication:Osteoporosis Start:01-Sep-2017 Instruction Type:Patient Education Patient Instructions Indication:Osteoporosis Start:01-Sep-2017 Instruction Type:Provider Instructions for Treatment Name Dates Details How to access health informa tion online Indication:Nonsmoker Start:29-Sep-2019 Instruction Type:Patient Education How to access health informa tion online - Detail Indication:Nonsmoker Start:29-Sep-2019 Instruction Type:Patient Education Patient Instructions Indication:Nonsmoker Start:29-Sep-2019 Instruction Type:Provider Instructions for Treatment How to access health informa tion online Indication:Nonsmoker Start:21-May-2019 Instruction Type:Patient Education How to access health informa tion online - Detail Indication:Nonsmoker Start:21-May-2019 Instruction Type:Patient Education Patient Instructions Indication:Nonsmoker Start:21-May-2019 Instruction Type:Provider Instructions for Treatment How to access health informa tion online Indication:Nonsmoker Start:05-May-2019 Instruction Type:Patient Education How to access health informa tion online - Detail Indication:Nonsmoker Start:05-May-2019 Instruction Type:Patient Education Patient Instructions Indication:Nonsmoker Start:05-May-2019 Instruction Type:Provider Instructions for Treatment How to access health informa tion online Indication:Nonsmoker Start:27-Nov-2018 Instruction Type:Patient Education How to access health informa tion online - Detail Indication:Nonsmoker Start:27-Nov-2018 Instruction Type:Patient Education Patient Instructions Indication:Nonsmoker Start:27-Nov-2018 Instruction Type:Provider Instructions for Treatment How to access health informa tion online - Detail Indication:Hypothyroid Start:20-Oct-2018 Instruction Type:Patient Education Patient Instructions Indication:Hypothyroid Start:20-Oct-2018 Instruction Type:Provider Instructions for Treatment How to access health informa tion online Indication:BMI 26.0-26.9,adult Start:14-Sep-2018 Instruction Type:Patient Education How to access health informa tion online - Detail Indication:BMI 26.0-26.9,adult Start:14-Sep-2018 Instruction Type:Patient Education Patient Instructions Indication:BMI 26.0-26.9,adult Start:14-Sep-2018 Instruction Type:Provider Instructions for Treatment How to access health informa tion online Indication:Nonsmoker Start:13-Jul-2018 Instruction Type:Patient Education How to access health informa tion online - Detail Indication:Nonsmoker Start:13-Jul-2018 Instruction Type:Patient Education Patient Instructions Indication:BMI 26.0-26.9,adult Start:13-Jul-2018 Instruction Type:Provider Instructions for Treatment How to access health informa tion online Indication:Nonsmoker Start:09-Jun-2018 Instruction Type:Patient Education How to access health informa tion online - Detail Indication:Nonsmoker Start:09-Jun-2018 Instruction Type:Patient Education Patient Instructions Indication:BMI 26.0-26.9,adult Start:09-Jun-2018 Instruction Type:Provider Instructions for Treatment How to access health informa tion online Indication:Nonsmoker Start:09-Dec-2017 Instruction Type:Patient Education How to access health informa tion online - Detail Indication:Nonsmoker Start:09-Dec-2017 Instruction Type:Patient Education Patient Instructions Indication:Nonsmoker Start:09-Dec-2017 Instruction Type:Provider Instructions for Treatment How to access health informa tion online Indication:Osteoporosis Start:30-Sep-2017 Instruction Type:Patient Education How to access health informa tion online - Detail Indication:Osteoporosis Start:30-Sep-2017 Instruction Type:Patient Education Patient Instructions Indication:Osteoporosis Start:30-Sep-2017 Instruction Type:Provider Instructions for Treatment How to access health informa tion online Indication:Osteoporosis Start:01-Sep-2017 Instruction Type:Patient Education How to access health informa tion online - Detail Indication:Osteoporosis Start:01-Sep-2017 Instruction Type:Patient Education Patient Instructions Indication:Osteoporosis Start:01-Sep-2017 Instruction Type:Provider Instructions for Treatment Name Dates Details How to access health informa tion online Indication:Nonsmoker Start:29-Sep-2019 Instruction Type:Patient Education How to access health informa tion online - Detail Indication:Nonsmoker Start:29-Sep-2019 Instruction Type:Patient Education Patient Instructions Indication:Nonsmoker Start:29-Sep-2019 Instruction Type:Provider Instructions for Treatment How to access health informa tion online Indication:Nonsmoker Start:21-May-2019 Instruction Type:Patient Education How to access health informa tion online - Detail Indication:Nonsmoker Start:21-May-2019 Instruction Type:Patient Education Patient Instructions Indication:Nonsmoker Start:21-May-2019 Instruction Type:Provider Instructions for Treatment How to access health informa tion online Indication:Nonsmoker Start:05-May-2019 Instruction Type:Patient Education How to access health informa tion online - Detail Indication:Nonsmoker Start:05-May-2019 Instruction Type:Patient Education Patient Instructions Indication:Nonsmoker Start:05-May-2019 Instruction Type:Provider Instructions for Treatment How to access health informa tion online Indication:Nonsmoker Start:27-Nov-2018 Instruction Type:Patient Education How to access health informa tion online - Detail Indication:Nonsmoker Start:27-Nov-2018 Instruction Type:Patient Education Patient Instructions Indication:Nonsmoker Start:27-Nov-2018 Instruction Type:Provider Instructions for Treatment How to access health informa tion online - Detail Indication:Hypothyroid Start:20-Oct-2018 Instruction Type:Patient Education Patient Instructions Indication:Hypothyroid Start:20-Oct-2018 Instruction Type:Provider Instructions for Treatment How to access health informa tion online Indication:BMI 26.0-26.9,adult Start:14-Sep-2018 Instruction Type:Patient Education How to access health informa tion online - Detail Indication:BMI 26.0-26.9,adult Start:14-Sep-2018 Instruction Type:Patient Education Patient Instructions Indication:BMI 26.0-26.9,adult Start:14-Sep-2018 Instruction Type:Provider Instructions for Treatment How to access health informa tion online Indication:Nonsmoker Start:13-Jul-2018 Instruction Type:Patient Education How to access health informa tion online - Detail Indication:Nonsmoker Start:13-Jul-2018 Instruction Type:Patient Education Patient Instructions Indication:BMI 26.0-26.9,adult Start:13-Jul-2018 Instruction Type:Provider Instructions for Treatment How to access health informa tion online Indication:Nonsmoker Start:09-Jun-2018 Instruction Type:Patient Education How to access health informa tion online - Detail Indication:Nonsmoker Start:09-Jun-2018 Instruction Type:Patient Education Patient Instructions Indication:BMI 26.0-26.9,adult Start:09-Jun-2018 Instruction Type:Provider Instructions for Treatment How to access health informa tion online Indication:Nonsmoker Start:09-Dec-2017 Instruction Type:Patient Education How to access health informa tion online - Detail Indication:Nonsmoker Start:09-Dec-2017 Instruction Type:Patient Education Patient Instructions Indication:Nonsmoker Start:09-Dec-2017 Instruction Type:Provider Instructions for Treatment How to access health informa tion online Indication:Osteoporosis Start:30-Sep-2017 Instruction Type:Patient Education How to access health informa tion online - Detail Indication:Osteoporosis Start:30-Sep-2017 Instruction Type:Patient Education Patient Instructions Indication:Osteoporosis Start:30-Sep-2017 Instruction Type:Provider Instructions for Treatment How to access health informa tion online Indication:Osteoporosis Start:01-Sep-2017 Instruction Type:Patient Education How to access health informa tion online - Detail Indication:Osteoporosis Start:01-Sep-2017 Instruction Type:Patient Education Patient Instructions Indication:Osteoporosis Start:01-Sep-2017 Instruction Type:Provider Instructions for Treatment Name Dates Details How to access health informa tion online Indication:Nonsmoker Start:29-Sep-2019 Instruction Type:Patient Education How to access health informa tion online - Detail Indication:Nonsmoker Start:29-Sep-2019 Instruction Type:Patient Education Patient Instructions Indication:Nonsmoker Start:29-Sep-2019 Instruction Type:Provider Instructions for Treatment How to access health informa tion online Indication:Nonsmoker Start:21-May-2019 Instruction Type:Patient Education How to access health informa tion online - Detail Indication:Nonsmoker Start:21-May-2019 Instruction Type:Patient Education Patient Instructions Indication:Nonsmoker Start:21-May-2019 Instruction Type:Provider Instructions for Treatment How to access health informa tion online Indication:Nonsmoker Start:05-May-2019 Instruction Type:Patient Education How to access health informa tion online - Detail Indication:Nonsmoker Start:05-May-2019 Instruction Type:Patient Education Patient Instructions Indication:Nonsmoker Start:05-May-2019 Instruction Type:Provider Instructions for Treatment How to access health informa tion online Indication:Nonsmoker Start:27-Nov-2018 Instruction Type:Patient Education How to access health informa tion online - Detail Indication:Nonsmoker Start:27-Nov-2018 Instruction Type:Patient Education Patient Instructions Indication:Nonsmoker Start:27-Nov-2018 Instruction Type:Provider Instructions for Treatment How to access health informa tion online - Detail Indication:Hypothyroid Start:20-Oct-2018 Instruction Type:Patient Education Patient Instructions Indication:Hypothyroid Start:20-Oct-2018 Instruction Type:Provider Instructions for Treatment How to access health informa tion online Indication:BMI 26.0-26.9,adult Start:14-Sep-2018 Instruction Type:Patient Education How to access health informa tion online - Detail Indication:BMI 26.0-26.9,adult Start:14-Sep-2018 Instruction Type:Patient Education Patient Instructions Indication:BMI 26.0-26.9,adult Start:14-Sep-2018 Instruction Type:Provider Instructions for Treatment How to access health informa tion online Indication:Nonsmoker Start:13-Jul-2018 Instruction Type:Patient Education How to access health informa tion online - Detail Indication:Nonsmoker Start:13-Jul-2018 Instruction Type:Patient Education Patient Instructions Indication:BMI 26.0-26.9,adult Start:13-Jul-2018 Instruction Type:Provider Instructions for Treatment How to access health informa tion online Indication:Nonsmoker Start:09-Jun-2018 Instruction Type:Patient Education How to access health informa tion online - Detail Indication:Nonsmoker Start:09-Jun-2018 Instruction Type:Patient Education Patient Instructions Indication:BMI 26.0-26.9,adult Start:09-Jun-2018 Instruction Type:Provider Instructions for Treatment How to access health informa tion online Indication:Nonsmoker Start:09-Dec-2017 Instruction Type:Patient Education How to access health informa tion online - Detail Indication:Nonsmoker Start:09-Dec-2017 Instruction Type:Patient Education Patient Instructions Indication:Nonsmoker Start:09-Dec-2017 Instruction Type:Provider Instructions for Treatment How to access health informa tion online Indication:Osteoporosis Start:30-Sep-2017 Instruction Type:Patient Education How to access health informa tion online - Detail Indication:Osteoporosis Start:30-Sep-2017 Instruction Type:Patient Education Patient Instructions Indication:Osteoporosis Start:30-Sep-2017 Instruction Type:Provider Instructions for Treatment How to access health informa tion online Indication:Osteoporosis Start:01-Sep-2017 Instruction Type:Patient Education How to access health informa tion online - Detail Indication:Osteoporosis Start:01-Sep-2017 Instruction Type:Patient Education Patient Instructions Indication:Osteoporosis Start:01-Sep-2017 Instruction Type:Provider Instructions for Treatment Name Dates Details How to access health informa tion online Indication:Nonsmoker Start:29-Sep-2019 Instruction Type:Patient Education How to access health informa tion online - Detail Indication:Nonsmoker Start:29-Sep-2019 Instruction Type:Patient Education Patient Instructions Indication:Nonsmoker Start:29-Sep-2019 Instruction Type:Provider Instructions for Treatment How to access health informa tion online Indication:Nonsmoker Start:21-May-2019 Instruction Type:Patient Education How to access health informa tion online - Detail Indication:Nonsmoker Start:21-May-2019 Instruction Type:Patient Education Patient Instructions Indication:Nonsmoker Start:21-May-2019 Instruction Type:Provider Instructions for Treatment How to access health informa tion online Indication:Nonsmoker Start:05-May-2019 Instruction Type:Patient Education How to access health informa tion online - Detail Indication:Nonsmoker Start:05-May-2019 Instruction Type:Patient Education Patient Instructions Indication:Nonsmoker Start:05-May-2019 Instruction Type:Provider Instructions for Treatment How to access health informa tion online Indication:Nonsmoker Start:27-Nov-2018 Instruction Type:Patient Education How to access health informa tion online - Detail Indication:Nonsmoker Start:27-Nov-2018 Instruction Type:Patient Education Patient Instructions Indication:Nonsmoker Start:27-Nov-2018 Instruction Type:Provider Instructions for Treatment How to access health informa tion online - Detail Indication:Hypothyroid Start:20-Oct-2018 Instruction Type:Patient Education Patient Instructions Indication:Hypothyroid Start:20-Oct-2018 Instruction Type:Provider Instructions for Treatment How to access health informa tion online Indication:BMI 26.0-26.9,adult Start:14-Sep-2018 Instruction Type:Patient Education How to access health informa tion online - Detail Indication:BMI 26.0-26.9,adult Start:14-Sep-2018 Instruction Type:Patient Education Patient Instructions Indication:BMI 26.0-26.9,adult Start:14-Sep-2018 Instruction Type:Provider Instructions for Treatment How to access health informa tion online Indication:Nonsmoker Start:13-Jul-2018 Instruction Type:Patient Education How to access health informa tion online - Detail Indication:Nonsmoker Start:13-Jul-2018 Instruction Type:Patient Education Patient Instructions Indication:BMI 26.0-26.9,adult Start:13-Jul-2018 Instruction Type:Provider Instructions for Treatment How to access health informa tion online Indication:Nonsmoker Start:09-Jun-2018 Instruction Type:Patient Education How to access health informa tion online - Detail Indication:Nonsmoker Start:09-Jun-2018 Instruction Type:Patient Education Patient Instructions Indication:BMI 26.0-26.9,adult Start:09-Jun-2018 Instruction Type:Provider Instructions for Treatment How to access health informa tion online Indication:Nonsmoker Start:09-Dec-2017 Instruction Type:Patient Education How to access health informa tion online - Detail Indication:Nonsmoker Start:09-Dec-2017 Instruction Type:Patient Education Patient Instructions Indication:Nonsmoker Start:09-Dec-2017 Instruction Type:Provider Instructions for Treatment How to access health informa tion online Indication:Osteoporosis Start:30-Sep-2017 Instruction Type:Patient Education How to access health informa tion online - Detail Indication:Osteoporosis Start:30-Sep-2017 Instruction Type:Patient Education Patient Instructions Indication:Osteoporosis Start:30-Sep-2017 Instruction Type:Provider Instructions for Treatment How to access health informa tion online Indication:Osteoporosis Start:01-Sep-2017 Instruction Type:Patient Education How to access health informa tion online - Detail Indication:Osteoporosis Start:01-Sep-2017 Instruction Type:Patient Education Patient Instructions Indication:Osteoporosis Start:01-Sep-2017 Instruction Type:Provider Instructions for Treatment Name Dates Details How to access health informa tion online Indication:Nonsmoker Start:17-Jan-2020 Instruction Type:Patient Education How to access health informa tion online - Detail Indication:Nonsmoker Start:17-Jan-2020 Instruction Type:Patient Education Patient Instructions Indication:Vitamin D deficiency Start:17-Jan-2020 Instruction Type:Provider Instructions for Treatment How to access health informa tion online Indication:Nonsmoker Start:29-Sep-2019 Instruction Type:Patient Education How to access health informa tion online - Detail Indication:Nonsmoker Start:29-Sep-2019 Instruction Type:Patient Education Patient Instructions Indication:Nonsmoker Start:29-Sep-2019 Instruction Type:Provider Instructions for Treatment How to access health informa tion online Indication:Nonsmoker Start:21-May-2019 Instruction Type:Patient Education How to access health informa tion online - Detail Indication:Nonsmoker Start:21-May-2019 Instruction Type:Patient Education Patient Instructions Indication:Nonsmoker Start:21-May-2019 Instruction Type:Provider Instructions for Treatment How to access health informa tion online Indication:Nonsmoker Start:05-May-2019 Instruction Type:Patient Education How to access health informa tion online - Detail Indication:Nonsmoker Start:05-May-2019 Instruction Type:Patient Education Patient Instructions Indication:Nonsmoker Start:05-May-2019 Instruction Type:Provider Instructions for Treatment How to access health informa tion online Indication:Nonsmoker Start:27-Nov-2018 Instruction Type:Patient Education How to access health informa tion online - Detail Indication:Nonsmoker Start:27-Nov-2018 Instruction Type:Patient Education Patient Instructions Indication:Nonsmoker Start:27-Nov-2018 Instruction Type:Provider Instructions for Treatment How to access health informa tion online - Detail Indication:Hypothyroid Start:20-Oct-2018 Instruction Type:Patient Education Patient Instructions Indication:Hypothyroid Start:20-Oct-2018 Instruction Type:Provider Instructions for Treatment How to access health informa tion online Indication:BMI 26.0-26.9,adult Start:14-Sep-2018 Instruction Type:Patient Education How to access health informa tion online - Detail Indication:BMI 26.0-26.9,adult Start:14-Sep-2018 Instruction Type:Patient Education Patient Instructions Indication:BMI 26.0-26.9,adult Start:14-Sep-2018 Instruction Type:Provider Instructions for Treatment How to access health informa tion online Indication:Nonsmoker Start:13-Jul-2018 Instruction Type:Patient Education How to access health informa tion online - Detail Indication:Nonsmoker Start:13-Jul-2018 Instruction Type:Patient Education Patient Instructions Indication:BMI 26.0-26.9,adult Start:13-Jul-2018 Instruction Type:Provider Instructions for Treatment How to access health informa tion online Indication:Nonsmoker Start:09-Jun-2018 Instruction Type:Patient Education How to access health informa tion online - Detail Indication:Nonsmoker Start:09-Jun-2018 Instruction Type:Patient Education Patient Instructions Indication:BMI 26.0-26.9,adult Start:09-Jun-2018 Instruction Type:Provider Instructions for Treatment How to access health informa tion online Indication:Nonsmoker Start:09-Dec-2017 Instruction Type:Patient Education How to access health informa tion online - Detail Indication:Nonsmoker Start:09-Dec-2017 Instruction Type:Patient Education Patient Instructions Indication:Nonsmoker Start:09-Dec-2017 Instruction Type:Provider Instructions for Treatment How to access health informa tion online Indication:Osteoporosis Start:30-Sep-2017 Instruction Type:Patient Education How to access health informa tion online - Detail Indication:Osteoporosis Start:30-Sep-2017 Instruction Type:Patient Education Patient Instructions Indication:Osteoporosis Start:30-Sep-2017 Instruction Type:Provider Instructions for Treatment How to access health informa tion online Indication:Osteoporosis Start:01-Sep-2017 Instruction Type:Patient Education How to access health informa tion online - Detail Indication:Osteoporosis Start:01-Sep-2017 Instruction Type:Patient Education Patient Instructions Indication:Osteoporosis Start:01-Sep-2017 Instruction Type:Provider Instructions for Treatment Name Dates Details How to access health informa tion online Indication:Nonsmoker Start:27-Nov-2018 Instruction Type:Patient Education How to access health informa tion online - Detail Indication:Nonsmoker Start:27-Nov-2018 Instruction Type:Patient Education Patient Instructions Indication:Nonsmoker Start:27-Nov-2018 Instruction Type:Provider Instructions for Treatment How to access health informa tion online - Detail Indication:Hypothyroid Start:20-Oct-2018 Instruction Type:Patient Education Patient Instructions Indication:Hypothyroid Start:20-Oct-2018 Instruction Type:Provider Instructions for Treatment How to access health informa tion online Indication:BMI 26.0-26.9,adult Start:14-Sep-2018 Instruction Type:Patient Education How to access health informa tion online - Detail Indication:BMI 26.0-26.9,adult Start:14-Sep-2018 Instruction Type:Patient Education Patient Instructions Indication:BMI 26.0-26.9,adult Start:14-Sep-2018 Instruction Type:Provider Instructions for Treatment How to access health informa tion online Indication:Nonsmoker Start:13-Jul-2018 Instruction Type:Patient Education How to access health informa tion online - Detail Indication:Nonsmoker Start:13-Jul-2018 Instruction Type:Patient Education Patient Instructions Indication:BMI 26.0-26.9,adult Start:13-Jul-2018 Instruction Type:Provider Instructions for Treatment How to access health informa tion online Indication:Nonsmoker Start:09-Jun-2018 Instruction Type:Patient Education How to access health informa tion online - Detail Indication:Nonsmoker Start:09-Jun-2018 Instruction Type:Patient Education Patient Instructions Indication:BMI 26.0-26.9,adult Start:09-Jun-2018 Instruction Type:Provider Instructions for Treatment How to access health informa tion online Indication:Nonsmoker Start:09-Dec-2017 Instruction Type:Patient Education How to access health informa tion online - Detail Indication:Nonsmoker Start:09-Dec-2017 Instruction Type:Patient Education Patient Instructions Indication:Nonsmoker Start:09-Dec-2017 Instruction Type:Provider Instructions for Treatment How to access health informa tion online Indication:Osteoporosis Start:30-Sep-2017 Instruction Type:Patient Education How to access health informa tion online - Detail Indication:Osteoporosis Start:30-Sep-2017 Instruction Type:Patient Education Patient Instructions Indication:Osteoporosis Start:30-Sep-2017 Instruction Type:Provider Instructions for Treatment How to access health informa tion online Indication:Osteoporosis Start:01-Sep-2017 Instruction Type:Patient Education How to access health informa tion online - Detail Indication:Osteoporosis Start:01-Sep-2017 Instruction Type:Patient Education Patient Instructions Indication:Osteoporosis Start:01-Sep-2017 Instruction Type:Provider Instructions for Treatment Name Dates Details How to access health informa tion online Indication:Nonsmoker Start:27-Nov-2018 Instruction Type:Patient Education How to access health informa tion online - Detail Indication:Nonsmoker Start:27-Nov-2018 Instruction Type:Patient Education Patient Instructions Indication:Nonsmoker Start:27-Nov-2018 Instruction Type:Provider Instructions for Treatment How to access health informa tion online - Detail Indication:Hypothyroid Start:20-Oct-2018 Instruction Type:Patient Education Patient Instructions Indication:Hypothyroid Start:20-Oct-2018 Instruction Type:Provider Instructions for Treatment How to access health informa tion online Indication:BMI 26.0-26.9,adult Start:14-Sep-2018 Instruction Type:Patient Education How to access health informa tion online - Detail Indication:BMI 26.0-26.9,adult Start:14-Sep-2018 Instruction Type:Patient Education Patient Instructions Indication:BMI 26.0-26.9,adult Start:14-Sep-2018 Instruction Type:Provider Instructions for Treatment How to access health informa tion online Indication:Nonsmoker Start:13-Jul-2018 Instruction Type:Patient Education How to access health informa tion online - Detail Indication:Nonsmoker Start:13-Jul-2018 Instruction Type:Patient Education Patient Instructions Indication:BMI 26.0-26.9,adult Start:13-Jul-2018 Instruction Type:Provider Instructions for Treatment How to access health informa tion online Indication:Nonsmoker Start:09-Jun-2018 Instruction Type:Patient Education How to access health informa tion online - Detail Indication:Nonsmoker Start:09-Jun-2018 Instruction Type:Patient Education Patient Instructions Indication:BMI 26.0-26.9,adult Start:09-Jun-2018 Instruction Type:Provider Instructions for Treatment How to access health informa tion online Indication:Nonsmoker Start:09-Dec-2017 Instruction Type:Patient Education How to access health informa tion online - Detail Indication:Nonsmoker Start:09-Dec-2017 Instruction Type:Patient Education Patient Instructions Indication:Nonsmoker Start:09-Dec-2017 Instruction Type:Provider Instructions for Treatment How to access health informa tion online Indication:Osteoporosis Start:30-Sep-2017 Instruction Type:Patient Education How to access health informa tion online - Detail Indication:Osteoporosis Start:30-Sep-2017 Instruction Type:Patient Education Patient Instructions Indication:Osteoporosis Start:30-Sep-2017 Instruction Type:Provider Instructions for Treatment How to access health informa tion online Indication:Osteoporosis Start:01-Sep-2017 Instruction Type:Patient Education How to access health informa tion online - Detail Indication:Osteoporosis Start:01-Sep-2017 Instruction Type:Patient Education Patient Instructions Indication:Osteoporosis Start:01-Sep-2017 Instruction Type:Provider Instructions for Treatment Name Dates Details How to access health informa tion online Indication:Nonsmoker Start:17-Jan-2020 Instruction Type:Patient Education How to access health informa tion online - Detail Indication:Nonsmoker Start:17-Jan-2020 Instruction Type:Patient Education Patient Instructions Indication:Vitamin D deficiency Start:17-Jan-2020 Instruction Type:Provider Instructions for Treatment How to access health informa tion online Indication:Nonsmoker Start:29-Sep-2019 Instruction Type:Patient Education How to access health informa tion online - Detail Indication:Nonsmoker Start:29-Sep-2019 Instruction Type:Patient Education Patient Instructions Indication:Nonsmoker Start:29-Sep-2019 Instruction Type:Provider Instructions for Treatment How to access health informa tion online Indication:Nonsmoker Start:21-May-2019 Instruction Type:Patient Education How to access health informa tion online - Detail Indication:Nonsmoker Start:21-May-2019 Instruction Type:Patient Education Patient Instructions Indication:Nonsmoker Start:21-May-2019 Instruction Type:Provider Instructions for Treatment How to access health informa tion online Indication:Nonsmoker Start:05-May-2019 Instruction Type:Patient Education How to access health informa tion online - Detail Indication:Nonsmoker Start:05-May-2019 Instruction Type:Patient Education Patient Instructions Indication:Nonsmoker Start:05-May-2019 Instruction Type:Provider Instructions for Treatment How to access health informa tion online Indication:Nonsmoker Start:27-Nov-2018 Instruction Type:Patient Education How to access health informa tion online - Detail Indication:Nonsmoker Start:27-Nov-2018 Instruction Type:Patient Education Patient Instructions Indication:Nonsmoker Start:27-Nov-2018 Instruction Type:Provider Instructions for Treatment How to access health informa tion online - Detail Indication:Hypothyroid Start:20-Oct-2018 Instruction Type:Patient Education Patient Instructions Indication:Hypothyroid Start:20-Oct-2018 Instruction Type:Provider Instructions for Treatment How to access health informa tion online Indication:BMI 26.0-26.9,adult Start:14-Sep-2018 Instruction Type:Patient Education How to access health informa tion online - Detail Indication:BMI 26.0-26.9,adult Start:14-Sep-2018 Instruction Type:Patient Education Patient Instructions Indication:BMI 26.0-26.9,adult Start:14-Sep-2018 Instruction Type:Provider Instructions for Treatment How to access health informa tion online Indication:Nonsmoker Start:13-Jul-2018 Instruction Type:Patient Education How to access health informa tion online - Detail Indication:Nonsmoker Start:13-Jul-2018 Instruction Type:Patient Education Patient Instructions Indication:BMI 26.0-26.9,adult Start:13-Jul-2018 Instruction Type:Provider Instructions for Treatment How to access health informa tion online Indication:Nonsmoker Start:09-Jun-2018 Instruction Type:Patient Education How to access health informa tion online - Detail Indication:Nonsmoker Start:09-Jun-2018 Instruction Type:Patient Education Patient Instructions Indication:BMI 26.0-26.9,adult Start:09-Jun-2018 Instruction Type:Provider Instructions for Treatment How to access health informa tion online Indication:Nonsmoker Start:09-Dec-2017 Instruction Type:Patient Education How to access health informa tion online - Detail Indication:Nonsmoker Start:09-Dec-2017 Instruction Type:Patient Education Patient Instructions Indication:Nonsmoker Start:09-Dec-2017 Instruction Type:Provider Instructions for Treatment How to access health informa tion online Indication:Osteoporosis Start:30-Sep-2017 Instruction Type:Patient Education How to access health informa tion online - Detail Indication:Osteoporosis Start:30-Sep-2017 Instruction Type:Patient Education Patient Instructions Indication:Osteoporosis Start:30-Sep-2017 Instruction Type:Provider Instructions for Treatment How to access health informa tion online Indication:Osteoporosis Start:01-Sep-2017 Instruction Type:Patient Education How to access health informa tion online - Detail Indication:Osteoporosis Start:01-Sep-2017 Instruction Type:Patient Education Patient Instructions Indication:Osteoporosis Start:01-Sep-2017 Instruction Type:Provider Instructions for Treatment Name Dates Details How to access health informa tion online Indication:Nonsmoker Start:17-Jan-2020 Instruction Type:Patient Education How to access health informa tion online - Detail Indication:Nonsmoker Start:17-Jan-2020 Instruction Type:Patient Education Patient Instructions Indication:Vitamin D deficiency Start:17-Jan-2020 Instruction Type:Provider Instructions for Treatment How to access health informa tion online Indication:Nonsmoker Start:29-Sep-2019 Instruction Type:Patient Education How to access health informa tion online - Detail Indication:Nonsmoker Start:29-Sep-2019 Instruction Type:Patient Education Patient Instructions Indication:Nonsmoker Start:29-Sep-2019 Instruction Type:Provider Instructions for Treatment How to access health informa tion online Indication:Nonsmoker Start:21-May-2019 Instruction Type:Patient Education How to access health informa tion online - Detail Indication:Nonsmoker Start:21-May-2019 Instruction Type:Patient Education Patient Instructions Indication:Nonsmoker Start:21-May-2019 Instruction Type:Provider Instructions for Treatment How to access health informa tion online Indication:Nonsmoker Start:05-May-2019 Instruction Type:Patient Education How to access health informa tion online - Detail Indication:Nonsmoker Start:05-May-2019 Instruction Type:Patient Education Patient Instructions Indication:Nonsmoker Start:05-May-2019 Instruction Type:Provider Instructions for Treatment How to access health informa tion online Indication:Nonsmoker Start:27-Nov-2018 Instruction Type:Patient Education How to access health informa tion online - Detail Indication:Nonsmoker Start:27-Nov-2018 Instruction Type:Patient Education Patient Instructions Indication:Nonsmoker Start:27-Nov-2018 Instruction Type:Provider Instructions for Treatment How to access health informa tion online - Detail Indication:Hypothyroid Start:20-Oct-2018 Instruction Type:Patient Education Patient Instructions Indication:Hypothyroid Start:20-Oct-2018 Instruction Type:Provider Instructions for Treatment How to access health informa tion online Indication:BMI 26.0-26.9,adult Start:14-Sep-2018 Instruction Type:Patient Education How to access health informa tion online - Detail Indication:BMI 26.0-26.9,adult Start:14-Sep-2018 Instruction Type:Patient Education Patient Instructions Indication:BMI 26.0-26.9,adult Start:14-Sep-2018 Instruction Type:Provider Instructions for Treatment How to access health informa tion online Indication:Nonsmoker Start:13-Jul-2018 Instruction Type:Patient Education How to access health informa tion online - Detail Indication:Nonsmoker Start:13-Jul-2018 Instruction Type:Patient Education Patient Instructions Indication:BMI 26.0-26.9,adult Start:13-Jul-2018 Instruction Type:Provider Instructions for Treatment How to access health informa tion online Indication:Nonsmoker Start:09-Jun-2018 Instruction Type:Patient Education How to access health informa tion online - Detail Indication:Nonsmoker Start:09-Jun-2018 Instruction Type:Patient Education Patient Instructions Indication:BMI 26.0-26.9,adult Start:09-Jun-2018 Instruction Type:Provider Instructions for Treatment How to access health informa tion online Indication:Nonsmoker Start:09-Dec-2017 Instruction Type:Patient Education How to access health informa tion online - Detail Indication:Nonsmoker Start:09-Dec-2017 Instruction Type:Patient Education Patient Instructions Indication:Nonsmoker Start:09-Dec-2017 Instruction Type:Provider Instructions for Treatment How to access health informa tion online Indication:Osteoporosis Start:30-Sep-2017 Instruction Type:Patient Education How to access health informa tion online - Detail Indication:Osteoporosis Start:30-Sep-2017 Instruction Type:Patient Education Patient Instructions Indication:Osteoporosis Start:30-Sep-2017 Instruction Type:Provider Instructions for Treatment How to access health informa tion online Indication:Osteoporosis Start:01-Sep-2017 Instruction Type:Patient Education How to access health informa tion online - Detail Indication:Osteoporosis Start:01-Sep-2017 Instruction Type:Patient Education Patient Instructions Indication:Osteoporosis Start:01-Sep-2017 Instruction Type:Provider Instructions for Treatment Name Dates Details Nonsmoker : How to access he alth information online Indication:Nonsmoker Nonsmoker : How to access he alth information online - Detail Indication:Nonsmoker Nonsmoker : Patient Instruct ions Indication:Nonsmoker Osteoporosis : How to access health information online Indication:Osteoporosis Osteoporosis : How to access health information online - Detail Indication:Osteoporosis Osteoporosis : Patient Instr uctions Indication:Osteoporosis Name Dates Details How to access health informa tion online - Detail Indication:Hypothyroid Start:20-Oct-2018 Instruction Type:Patient Education Patient Instructions Indication:Hypothyroid Start:20-Oct-2018 Instruction Type:Provider Instructions for Treatment How to access health informa tion online Indication:BMI 26.0-26.9,adult Start:14-Sep-2018 Instruction Type:Patient Education How to access health informa tion online - Detail Indication:BMI 26.0-26.9,adult Start:14-Sep-2018 Instruction Type:Patient Education Patient Instructions Indication:BMI 26.0-26.9,adult Start:14-Sep-2018 Instruction Type:Provider Instructions for Treatment How to access health informa tion online Indication:Nonsmoker Start:13-Jul-2018 Instruction Type:Patient Education How to access health informa tion online - Detail Indication:Nonsmoker Start:13-Jul-2018 Instruction Type:Patient Education Patient Instructions Indication:BMI 26.0-26.9,adult Start:13-Jul-2018 Instruction Type:Provider Instructions for Treatment How to access health informa tion online Indication:Nonsmoker Start:09-Jun-2018 Instruction Type:Patient Education How to access health informa tion online - Detail Indication:Nonsmoker Start:09-Jun-2018 Instruction Type:Patient Education Patient Instructions Indication:BMI 26.0-26.9,adult Start:09-Jun-2018 Instruction Type:Provider Instructions for Treatment How to access health informa tion online Indication:Nonsmoker Start:09-Dec-2017 Instruction Type:Patient Education How to access health informa tion online - Detail Indication:Nonsmoker Start:09-Dec-2017 Instruction Type:Patient Education Patient Instructions Indication:Nonsmoker Start:09-Dec-2017 Instruction Type:Provider Instructions for Treatment How to access health informa tion online Indication:Osteoporosis Start:30-Sep-2017 Instruction Type:Patient Education How to access health informa tion online - Detail Indication:Osteoporosis Start:30-Sep-2017 Instruction Type:Patient Education Patient Instructions Indication:Osteoporosis Start:30-Sep-2017 Instruction Type:Provider Instructions for Treatment How to access health informa tion online Indication:Osteoporosis Start:01-Sep-2017 Instruction Type:Patient Education How to access health informa tion online - Detail Indication:Osteoporosis Start:01-Sep-2017 Instruction Type:Patient Education Patient Instructions Indication:Osteoporosis Start:01-Sep-2017 Instruction Type:Provider Instructions for Treatment Name Dates Details How to access health informa tion online - Detail Indication:Hypothyroid Start:20-Oct-2018 Instruction Type:Patient Education Patient Instructions Indication:Hypothyroid Start:20-Oct-2018 Instruction Type:Provider Instructions for Treatment How to access health informa tion online Indication:BMI 26.0-26.9,adult Start:14-Sep-2018 Instruction Type:Patient Education How to access health informa tion online - Detail Indication:BMI 26.0-26.9,adult Start:14-Sep-2018 Instruction Type:Patient Education Patient Instructions Indication:BMI 26.0-26.9,adult Start:14-Sep-2018 Instruction Type:Provider Instructions for Treatment How to access health informa tion online Indication:Nonsmoker Start:13-Jul-2018 Instruction Type:Patient Education How to access health informa tion online - Detail Indication:Nonsmoker Start:13-Jul-2018 Instruction Type:Patient Education Patient Instructions Indication:BMI 26.0-26.9,adult Start:13-Jul-2018 Instruction Type:Provider Instructions for Treatment How to access health informa tion online Indication:Nonsmoker Start:09-Jun-2018 Instruction Type:Patient Education How to access health informa tion online - Detail Indication:Nonsmoker Start:09-Jun-2018 Instruction Type:Patient Education Patient Instructions Indication:BMI 26.0-26.9,adult Start:09-Jun-2018 Instruction Type:Provider Instructions for Treatment How to access health informa tion online Indication:Nonsmoker Start:09-Dec-2017 Instruction Type:Patient Education How to access health informa tion online - Detail Indication:Nonsmoker Start:09-Dec-2017 Instruction Type:Patient Education Patient Instructions Indication:Nonsmoker Start:09-Dec-2017 Instruction Type:Provider Instructions for Treatment How to access health informa tion online Indication:Osteoporosis Start:30-Sep-2017 Instruction Type:Patient Education How to access health informa tion online - Detail Indication:Osteoporosis Start:30-Sep-2017 Instruction Type:Patient Education Patient Instructions Indication:Osteoporosis Start:30-Sep-2017 Instruction Type:Provider Instructions for Treatment How to access health informa tion online Indication:Osteoporosis Start:01-Sep-2017 Instruction Type:Patient Education How to access health informa tion online - Detail Indication:Osteoporosis Start:01-Sep-2017 Instruction Type:Patient Education Patient Instructions Indication:Osteoporosis Start:01-Sep-2017 Instruction Type:Provider Instructions for Treatment Name Dates Details How to access health informa tion online Indication:BMI 26.0-26.9,adult Start:14-Sep-2018 Instruction Type:Patient Education How to access health informa tion online - Detail Indication:BMI 26.0-26.9,adult Start:14-Sep-2018 Instruction Type:Patient Education Patient Instructions Indication:BMI 26.0-26.9,adult Start:14-Sep-2018 Instruction Type:Provider Instructions for Treatment How to access health informa tion online Indication:Nonsmoker Start:13-Jul-2018 Instruction Type:Patient Education How to access health informa tion online - Detail Indication:Nonsmoker Start:13-Jul-2018 Instruction Type:Patient Education Patient Instructions Indication:BMI 26.0-26.9,adult Start:13-Jul-2018 Instruction Type:Provider Instructions for Treatment How to access health informa tion online Indication:Nonsmoker Start:09-Jun-2018 Instruction Type:Patient Education How to access health informa tion online - Detail Indication:Nonsmoker Start:09-Jun-2018 Instruction Type:Patient Education Patient Instructions Indication:BMI 26.0-26.9,adult Start:09-Jun-2018 Instruction Type:Provider Instructions for Treatment How to access health informa tion online Indication:Nonsmoker Start:09-Dec-2017 Instruction Type:Patient Education How to access health informa tion online - Detail Indication:Nonsmoker Start:09-Dec-2017 Instruction Type:Patient Education Patient Instructions Indication:Nonsmoker Start:09-Dec-2017 Instruction Type:Provider Instructions for Treatment How to access health informa tion online Indication:Osteoporosis Start:30-Sep-2017 Instruction Type:Patient Education How to access health informa tion online - Detail Indication:Osteoporosis Start:30-Sep-2017 Instruction Type:Patient Education Patient Instructions Indication:Osteoporosis Start:30-Sep-2017 Instruction Type:Provider Instructions for Treatment How to access health informa tion online Indication:Osteoporosis Start:01-Sep-2017 Instruction Type:Patient Education How to access health informa tion online - Detail Indication:Osteoporosis Start:01-Sep-2017 Instruction Type:Patient Education Patient Instructions Indication:Osteoporosis Start:01-Sep-2017 Instruction Type:Provider Instructions for Treatment Name Dates Details How to access health informa tion online Indication:Nonsmoker Start:27-Nov-2018 Instruction Type:Patient Education How to access health informa tion online - Detail Indication:Nonsmoker Start:27-Nov-2018 Instruction Type:Patient Education Patient Instructions Indication:Nonsmoker Start:27-Nov-2018 Instruction Type:Provider Instructions for Treatment How to access health informa tion online - Detail Indication:Hypothyroid Start:20-Oct-2018 Instruction Type:Patient Education Patient Instructions Indication:Hypothyroid Start:20-Oct-2018 Instruction Type:Provider Instructions for Treatment How to access health informa tion online Indication:BMI 26.0-26.9,adult Start:14-Sep-2018 Instruction Type:Patient Education How to access health informa tion online - Detail Indication:BMI 26.0-26.9,adult Start:14-Sep-2018 Instruction Type:Patient Education Patient Instructions Indication:BMI 26.0-26.9,adult Start:14-Sep-2018 Instruction Type:Provider Instructions for Treatment How to access health informa tion online Indication:Nonsmoker Start:13-Jul-2018 Instruction Type:Patient Education How to access health informa tion online - Detail Indication:Nonsmoker Start:13-Jul-2018 Instruction Type:Patient Education Patient Instructions Indication:BMI 26.0-26.9,adult Start:13-Jul-2018 Instruction Type:Provider Instructions for Treatment How to access health informa tion online Indication:Nonsmoker Start:09-Jun-2018 Instruction Type:Patient Education How to access health informa tion online - Detail Indication:Nonsmoker Start:09-Jun-2018 Instruction Type:Patient Education Patient Instructions Indication:BMI 26.0-26.9,adult Start:09-Jun-2018 Instruction Type:Provider Instructions for Treatment How to access health informa tion online Indication:Nonsmoker Start:09-Dec-2017 Instruction Type:Patient Education How to access health informa tion online - Detail Indication:Nonsmoker Start:09-Dec-2017 Instruction Type:Patient Education Patient Instructions Indication:Nonsmoker Start:09-Dec-2017 Instruction Type:Provider Instructions for Treatment How to access health informa tion online Indication:Osteoporosis Start:30-Sep-2017 Instruction Type:Patient Education How to access health informa tion online - Detail Indication:Osteoporosis Start:30-Sep-2017 Instruction Type:Patient Education Patient Instructions Indication:Osteoporosis Start:30-Sep-2017 Instruction Type:Provider Instructions for Treatment How to access health informa tion online Indication:Osteoporosis Start:01-Sep-2017 Instruction Type:Patient Education How to access health informa tion online - Detail Indication:Osteoporosis Start:01-Sep-2017 Instruction Type:Patient Education Patient Instructions Indication:Osteoporosis Start:01-Sep-2017 Instruction Type:Provider Instructions for Treatment Name Dates Details How to access health informa tion online - Detail Indication:Hypothyroid Start:20-Oct-2018 Instruction Type:Patient Education Patient Instructions Indication:Hypothyroid Start:20-Oct-2018 Instruction Type:Provider Instructions for Treatment How to access health informa tion online Indication:BMI 26.0-26.9,adult Start:14-Sep-2018 Instruction Type:Patient Education How to access health informa tion online - Detail Indication:BMI 26.0-26.9,adult Start:14-Sep-2018 Instruction Type:Patient Education Patient Instructions Indication:BMI 26.0-26.9,adult Start:14-Sep-2018 Instruction Type:Provider Instructions for Treatment How to access health informa tion online Indication:Nonsmoker Start:13-Jul-2018 Instruction Type:Patient Education How to access health informa tion online - Detail Indication:Nonsmoker Start:13-Jul-2018 Instruction Type:Patient Education Patient Instructions Indication:BMI 26.0-26.9,adult Start:13-Jul-2018 Instruction Type:Provider Instructions for Treatment How to access health informa tion online Indication:Nonsmoker Start:09-Jun-2018 Instruction Type:Patient Education How to access health informa tion online - Detail Indication:Nonsmoker Start:09-Jun-2018 Instruction Type:Patient Education Patient Instructions Indication:BMI 26.0-26.9,adult Start:09-Jun-2018 Instruction Type:Provider Instructions for Treatment How to access health informa tion online Indication:Nonsmoker Start:09-Dec-2017 Instruction Type:Patient Education How to access health informa tion online - Detail Indication:Nonsmoker Start:09-Dec-2017 Instruction Type:Patient Education Patient Instructions Indication:Nonsmoker Start:09-Dec-2017 Instruction Type:Provider Instructions for Treatment How to access health informa tion online Indication:Osteoporosis Start:30-Sep-2017 Instruction Type:Patient Education How to access health informa tion online - Detail Indication:Osteoporosis Start:30-Sep-2017 Instruction Type:Patient Education Patient Instructions Indication:Osteoporosis Start:30-Sep-2017 Instruction Type:Provider Instructions for Treatment How to access health informa tion online Indication:Osteoporosis Start:01-Sep-2017 Instruction Type:Patient Education How to access health informa tion online - Detail Indication:Osteoporosis Start:01-Sep-2017 Instruction Type:Patient Education Patient Instructions Indication:Osteoporosis Start:01-Sep-2017 Instruction Type:Provider Instructions for Treatment Name Dates Details How to access health informa tion online Indication:Nonsmoker Start:17-Jan-2020 Instruction Type:Patient Education How to access health informa tion online - Detail Indication:Nonsmoker Start:17-Jan-2020 Instruction Type:Patient Education Patient Instructions Indication:Vitamin D deficiency Start:17-Jan-2020 Instruction Type:Provider Instructions for Treatment How to access health informa tion online Indication:Nonsmoker Start:29-Sep-2019 Instruction Type:Patient Education How to access health informa tion online - Detail Indication:Nonsmoker Start:29-Sep-2019 Instruction Type:Patient Education Patient Instructions Indication:Nonsmoker Start:29-Sep-2019 Instruction Type:Provider Instructions for Treatment How to access health informa tion online Indication:Nonsmoker Start:21-May-2019 Instruction Type:Patient Education How to access health informa tion online - Detail Indication:Nonsmoker Start:21-May-2019 Instruction Type:Patient Education Patient Instructions Indication:Nonsmoker Start:21-May-2019 Instruction Type:Provider Instructions for Treatment How to access health informa tion online Indication:Nonsmoker Start:05-May-2019 Instruction Type:Patient Education How to access health informa tion online - Detail Indication:Nonsmoker Start:05-May-2019 Instruction Type:Patient Education Patient Instructions Indication:Nonsmoker Start:05-May-2019 Instruction Type:Provider Instructions for Treatment How to access health informa tion online Indication:Nonsmoker Start:27-Nov-2018 Instruction Type:Patient Education How to access health informa tion online - Detail Indication:Nonsmoker Start:27-Nov-2018 Instruction Type:Patient Education Patient Instructions Indication:Nonsmoker Start:27-Nov-2018 Instruction Type:Provider Instructions for Treatment How to access health informa tion online - Detail Indication:Hypothyroid Start:20-Oct-2018 Instruction Type:Patient Education Patient Instructions Indication:Hypothyroid Start:20-Oct-2018 Instruction Type:Provider Instructions for Treatment How to access health informa tion online Indication:BMI 26.0-26.9,adult Start:14-Sep-2018 Instruction Type:Patient Education How to access health informa tion online - Detail Indication:BMI 26.0-26.9,adult Start:14-Sep-2018 Instruction Type:Patient Education Patient Instructions Indication:BMI 26.0-26.9,adult Start:14-Sep-2018 Instruction Type:Provider Instructions for Treatment How to access health informa tion online Indication:Nonsmoker Start:13-Jul-2018 Instruction Type:Patient Education How to access health informa tion online - Detail Indication:Nonsmoker Start:13-Jul-2018 Instruction Type:Patient Education Patient Instructions Indication:BMI 26.0-26.9,adult Start:13-Jul-2018 Instruction Type:Provider Instructions for Treatment How to access health informa tion online Indication:Nonsmoker Start:09-Jun-2018 Instruction Type:Patient Education How to access health informa tion online - Detail Indication:Nonsmoker Start:09-Jun-2018 Instruction Type:Patient Education Patient Instructions Indication:BMI 26.0-26.9,adult Start:09-Jun-2018 Instruction Type:Provider Instructions for Treatment How to access health informa tion online Indication:Nonsmoker Start:09-Dec-2017 Instruction Type:Patient Education How to access health informa tion online - Detail Indication:Nonsmoker Start:09-Dec-2017 Instruction Type:Patient Education Patient Instructions Indication:Nonsmoker Start:09-Dec-2017 Instruction Type:Provider Instructions for Treatment How to access health informa tion online Indication:Osteoporosis Start:30-Sep-2017 Instruction Type:Patient Education How to access health informa tion online - Detail Indication:Osteoporosis Start:30-Sep-2017 Instruction Type:Patient Education Patient Instructions Indication:Osteoporosis Start:30-Sep-2017 Instruction Type:Provider Instructions for Treatment How to access health informa tion online Indication:Osteoporosis Start:01-Sep-2017 Instruction Type:Patient Education How to access health informa tion online - Detail Indication:Osteoporosis Start:01-Sep-2017 Instruction Type:Patient Education Patient Instructions Indication:Osteoporosis Start:01-Sep-2017 Instruction Type:Provider Instructions for Treatment Summary Purpose Advance Directives No Advanced Directives Records Found Advance Directive Response Recorded Date/ Time Living Will No August 09, 2021 3 :12pm Power of Tax Analyst No August 09, 2021 3:12pm Advance Directive Response Recorded Date/ Time Living Will No September 24, 2021 3:56pm Power of Tax Analyst No September 24 3:56pm Advance Directive Response Recorded Date/ Time Living Will No September 24, 2021 9:52pm Power of Tax Analyst No September 24 9:52pm Chief Complaint and Reason for Visit Chief Complaint Personal history of nicotine dependence FALL Chief Complaint FALL SOB, DIZZINESS ORTHOSTATIC HYPOTENSION Reason for Visit Falls Orthostatic hypotension Shortness of breath History of COPD Hyperlipidemia Thyroid cancer Chief Complaint Admit Date not feeling normal, dizzy /prolia Venkata h 2024 3:20pm Amb Documentation June 09, 2024 8:2 1am Reason for Visit Admit Date Adenomatous colon polyp June 08, 2024 3:20pm Ganglion cyst of finger of left hand [facility] 2024 3:20pm Hypothyroidism June 08, 2024 3:2 0pm Weight gain June 08, 2024 3:2 0pm Chief Complaint Admit Date not feeling normal, dizzy /prolia Venkata h 2024 3:20pm Amb Documentation June 09, 2024 8:2 1am New PT June 17, 2024 10:4 1am LEFT HAND June 22, 2024 10:1 8am ASSESS FOR VOLAR TENDON SHEATH GANGLION CYST June 28, 2024 11:14am Reason for Visit Admit Date Adenomatous colon polyp June 08, 2024 3:20pm Ganglion cyst of finger of left hand [facility] 2024 3:20pm Hypothyroidism June 08, 2024 3:2 0pm Weight gain June 08, 2024 3:2 0pm Encounter for colonoscopy du e to history of adenomatous colonic polyps June 17, 2024 10:41am GERD (gastroesophageal reflux disease) A pril 2024 10:41am Constipation June 17, 2024 10:4 1am Ganglion, left wrist June 22, 2024 10: 18am Additional Source Comments INFORMATION SOURCE (unrecogn ized section and content) DATE CREATED AUTHOR 08/27/2018 [facility] DATE CREATED AUTHOR AUTHOR'S ORGANIZ ATION 10/16/2018 [facility] DATE CREATED AUTHOR AUTHOR'S ORGANIZ ATION 12/15/2021 [facility] DATE CREATED AUTHOR AUTHOR'S ORGANIZ ATION [facility] Goals (unrecognized section and content) Goals may be documented in a n alternate sectionGoals may be documented in an alternate sectionGoals may be documented in an alternate sectionGoals may be documented in an alternate section Care Teams (unrecognized sec tion and content) Team Status: Active Member Role Status Dates Jessica May 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 Vu Ramon , DO Primary Care Provider Active Team Status: Inactive Member Role Status Dates Dr. Vu Ramon , Primary Care Provider Active Start: June 08, 2024 End: June 08, 2024 Dr. Vu Ramon , DO Attending Provider Active Start: June 08, 2024 End: June 08, 2024 Dr. Vu Ramon DO Referring Provider Active Start: June 08, 2024 End: June 08, 2024 Team Status: Active Member Role Status Dates Dr. Vu Ramon DO Primary Care Provider Active Start: June 09, 2024 Dr. Vu Ramon DO Attending Provider Active Start: June 09, 2024 Team Status: Active Member Role Status Dates Dr. Vu Ramon DO Primary Care Provider Active Team Status: Inactive Member Role Status Dates Dr. Vu Ramon DO Primary Care Provider Active Start: June 17, 2024 End: June 17, 2024 Dr. Vu Ramon DO Referring Provider Active Start: June 17, 2024 End: June 17, 2024 MADELYN Francis Attending Provider Active S tart: June 17, 2024 End: June 17, 2024 Team Status: Inactive Member Role Status Dates Dr. Vu Ramon DO Primary Care Provider Active Start: June 22, 2024 End: June 22, 2024 Dr. Vu Ramon DO Referring Provider Active Start: June 22, 2024 End: June 22, 2024 Cale Cruz MD Attending Provider Active St art: June 22, 2024 End: June 22, 2024 Team Status: Inactive Member Role Status Dates Dr. Vu Ramon DO Primary Care Provider Active Start: June 28, 2024 End: June 28, 2024 Cale Cruz MD Attending Provider Active St art: June 28, 2024 End: June 28, 2024 Cale Cruz MD Referring Provider Active St art: June 28, 2024 End: June 28, 2024 FOR RECORDS PERTAINING TO PATIENTS WHO ARE OR HAVE BEEN ENROLLED IN A CHEMICAL DEPENDENCY/SUBSTANCEABUSE PROGRAM, SOME INFORMATION MAY BE OMITTED. This clinical summary was aggregated from multiple sources. Caution should be exercised in using it in the provision of clinical care. This summary normalizes information from multiple sources, and as a consequence, information in this document may materially change the coding, format and clinical context of patient data. In addition, data may be omitted in some cases. CLINICAL DECISIONS SHOULD BE BASED ON THE PRIMARY CLINICAL RECORDS. [facility] [employer] provides no warranty or guarantee of the accuracy or completeness of information in this document.
[2024-08-27] MEDS: Lactated Ringers 1,000 ML 15 ML IV (06:16)
--- NOTE | 2024-08-27 06:30 | EGD_PTH ---
PATIENT: PINA ORTEGA LOC: EN U#:[id number] AGE/SX: 64/F ROOM: RE08/27/[address]: Dr. Rodriguez Santos DO : 1960 BED: DIS: 08/27/2024 SPEC #: [id number] RECD: 08/27/24 12:15 STATUS: AMERICA HANNAH #: [id number] JAMILA: 08/27/24 06:[address]: Rodriguez Santos DEPT: SURGICAL PATHOLOGY RECD BY: Eduin Cates ENTERED: 08/27/24 13:25 SP TYPE: EGD BIOPSY [place] DR: Dr. Vu Ramon DO Tissues: A - Gastric mucous membrane B - Duodenum, NOS Procedures: Immunohistochemical Stains Surgery Specimen Level IV HEADER OPERATION: EGD and biopsy PRE-OP DIAGNOSIS: Encounter for screening for malignant neoplasm of colon, gastro-esophageal reflux disease without esophagitis, personal history of adenomatous and serrated colon polyps TISSUE SUBMITTED: A- Gastric body biopsy, B- Duodenal biopsy MICROSCOPIC DIAGNOSIS A. Gastric body, biopsy: Oxyntic mucosa with features of reactive gastropathy. IHC negative for H.pylori organisms. B. Duodenum, biopsy: Normal villous architecture with [place] gland hyperplasia. Negative for increased intraepithelial lymphocytes. MICROSCOPIC DESCRIPTION Slides are reviewed. All matched controls reacted appropriately. These tests were developed and their performance characteristics determined by [facility]. They may not have been cleared or approved by the [place]. Food and Drug Administration. The FDA has determined that such clearance or approval is not necessary. The above immunohistochemical/dualISH markers are reviewed by the Pathologist. GROSS DESCRIPTION Received in 2 formalin containers labeled the patient's name and date of .? Designated as: A.? Gastric body biopsy, check for H. pylori are 2 jones tissue fragments, 0.5 cm and 0.6 cm.? Entirely submitted in 1 cassette. B.? Duodenal biopsy are 2 jones tissue fragments, 0.3 cm and 0.5 cm.? Entirely submitted in 1 cassette. [place] 08/27/2024 CPT:[id number]
--- NOTE | 2024-08-27 06:40 | PCM.PRE.AN2 ---
ASA Classification* ASA Classification ASA Classification: 3 Assessment & Plan Anesthesia* Anesthesia Assessment Anesthesia Assessment: Discussed sedation and/or anesthesia options, risks, benefits, and alternatives with patient/parents/legal guardian/POA. Questions invited. The patient/parents/legal guardian/POA seems to understand and agrees to proceed with anesthesia plan. Reviewed the physical assessment, medical history, allergy history and patient home medications list prior to surgery/procedure/anesthetic and documented any changes. Performed airway and anesthesia risk assessments. Anesthesia Type Anesthesia Type: MAC Anesthesia Focused Assessment* Temperature: 97.9 F Pulse Rate: 84 Blood Pressure: 118/72 Respiratory Rate: 16 Pulse Ox: 97 Airway Assessment Mouth opens: >3 cm Mallampati Score: II Labs Anesthesia Preop lab: CBC WBC 5.3 K/mm3 (4.4-11.0) 06/08/24 16:06 06/08/24 RBC 4.78 M/mm3 (4.2-5.4) 06/08/24 16:06 06/08/24 Hgb 13.6 g/dL (12.0-15.0) 06/08/24 16:06 06/08/24 Hct 40.8 % (37-47) 06/08/24 16:06 06/08/24 Plt Count 264 K/mm3 (150-450) 06/08/24 16:06 06/08/24 CHEMISTRY Potassium 4.1 mmol/L (3.3-5.1) 06/08/24 16:06 06/08/24 Sodium 136 mmol/L (133-145) 06/08/24 16:06 06/08/24 Magnesium 2.1 mg/dL (1.6-2.6) 09/07/18 23:35 09/07/18 BUN 12 mg/dL (4-19) 06/08/24 16:06 06/08/24 Creatinine 0.80 mg/dL (0.70-1.20) 06/08/24 16:06 06/08/24 Glucose 86 mg/dL (70-99) 06/08/24 16:06 06/08/24 TSH 4.520 uIU/mL (0.300-4.200) H 06/08/24 16:06 06/08/24 COAG Pre-Assessment Diagnosis/Proposed Procedure Planned Operative Procedure(s): EGD, COLONOSCOPY Anesthesia History 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 When Was Last Pacemaker Check QUESTION #4 FULL TEXT: You/Your Family Experience fever (hyperthermia) with Anesthesia Last Oral Intake Last Oral intake: Last Oral Intake NPO since Meds taken in AM with sips of water? Meds patient instructed to take am of surgery PONV PONV - satellite dish installer: PONV - satellite dish installer Female Yes 08/25/24 15:00 HX of Motion Sickness No 08/25/24 15:00 HX of N/V After Surgery No 08/25/24 15:00 Non-Smoker Yes 08/25/24 15:00 Duration of Surgery greater No 08/25/24 15:00 than 60 minutes Number of Risk Factors 2 08/25/24 15:00 PONV Score Moderate Risk 08/25/24 15:00 Height & Weight Height & Weight: Anesthesia: Height & Weight Height 5 ft 4 in 08/27/24 05:35 Weight: 80 kg 08/27/24 05:35 Body Mass Index (BMI) 30.2 08/27/24 05:35 Respiratory Assessment Respiratory Assessment - satellite dish installer: Respiratory Tract Infection Hx - satellite dish installer Hx Respiratory Tract Infection No 08/25/24 15:00 STOP Sleep Apnea STOP Sleep Apnea - satellite dish installer: STOP Sleep Apnea - satellite dish installer Hx Hypertension No 08/25/24 15:00 Hx Sleep Apnea Yes 08/25/24 15:00 CPAP Yes: NON COMPLIANT 08/25/24 15:00 BIPAP No 08/25/24 15:00 Do you snore loudly (louder than talking or can be heard Do you often feel tired/ fatigued/ sleepy during daytime? Has anyone observed you stop breathing during sleep? STOP Results Positive 08/25/24 15:00 QUESTION #5 FULL TEXT : Do you snore loudly (louder than talking or can be heard through closed doors)? 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 Specify any problems Hx of Preganancy in last 3 No 08/25/24 15:00 Months Nurse Filling Out Transfusion [facility] 08/25/24 15:00 & Questions: Date: 08/25/24 08/25/24 15:00 Time: 15:11 08/25/24 15:00 Patient unable to answer at this time (ie. confused, unrespo /Reproduction History /Reproductive History - satellite dish installer: /Reproductive Hx- satellite dish installer Hx Now No 08/25/24 15:00 Gestational Age (in weeks): EDC: Hx Hx Para Hx Section SAB No 08/25/24 15:00 Active Medications Active Medications: Current Medications Generic Name Dose Route Start Last Admin Trade Name Freq PRN Reason Stop Dose Admin Lactated Ringer's 1,000 mls @ 15 mls/hr 08/27/24 06:15 08/27/24 06:16 IV 15 mls/hr .Q48H DARREN Administration PFSH Medical History Wears dentures Wears glasses Cancer Anxiety Arthritis Ambulates with cane High cholesterol Easy bruising Injury of back History of IBS Gastric reflux Former smoker CPAP (continuous positive airway pressure) dependence Sleep apnea Hoarseness Shortness of breath on exertion Chronic cough Leg cramps History of echocardiogram History of stress test Cardiology follow-up encounter Ganglion, left wrist Abnormal EKG Arrhythmia Basal cell carcinoma Irritable bowel syndrome with constipation Fibroids Skin cancer Anemia Hypothyroidism Rheumatoid arthritis Osteoporosis GERD (gastroesophageal reflux disease) CPAP (continuous positive airway pressure) dependence COPD (chronic obstructive pulmonary disease) Migraines Hyperlipidemia Adult BMI 30.0-30.9 kg/sq m Obstructive sleep apnea Back pain Thyroid disease Shoulder pain Compression fracture of L5 lumbar vertebra Thyroid cancer Anxiety and depression Osteoarthritis Vitamin D deficiency Home Medications ?Medication ?Instructions ?Recorded ?Last Taken ?Type albuterol sulfate 90 mcg/actuation 2 puff inhalation PRN PRN Sob &/Or 09/07/18 08/26/24 History aerosol inhaler Wheezing magnesium 200 mg tablet 200 mg PO DAILY 07/29/23 08/26/24 History mecobalamin (vitamin B12) 1,000 1,000 mcg PO DAILY 07/29/23 08/26/24 History mcg lozenges vitamin D3 125 mcg (5,000 1 cap PO DAILY 07/29/23 08/26/24 History unit)-vitamin K2 180 mcg capsule (K2-D3 Max) Handicap placard #1 ea 10/29/23 Unknown Rx fluticasone furoate 200 1 inh inhalation DAILY copd #60 ea 04/13/24 08/26/24 Rx mcg-vilanterol 25 mcg/dose inhalation powder (Breo Ellipta) rosuvastatin 5 mg tablet 5 mg PO DAILY cholesterol #90 tabs 04/13/24 08/26/24 Rx tiotropium bromide 2.5 2 puff inhalation QDAY #4 grams 04/13/24 08/26/24 Rx mcg/actuation mist for inhalation (Spiriva Respimat) amitriptyline 50 mg tablet 50 mg PO QHS #90 tabs 04/20/24 Unknown Rx paroxetine HCl 40 mg tablet 40 mg PO QAM #90 tabs 04/20/24 08/26/24 Rx levothyroxine 25 mcg tablet 25 mcg PO QDAY #90 tabs 04/28/24 08/26/24 Rx pantoprazole 40 mg tablet,delayed 40 mg PO DAILY #90 tabs 06/17/24 Unknown Rx release peg 3350-electrolytes 236 240 ml PO Q10M #4,000 mL 06/17/24 08/26/24 Rx gram-22.74 gram-6.74 gram-5.86 gram solution (Golytely) denosumab 60 mg/mL subcutaneous 60 mg subcut Q6M 08/25/24 Unknown History syringe (Prolia) Allergy/AdvReac Type Severity Reaction Status Date / Time nickel Allergy Intermediate Rash Verified 08/25/24 14:56 Family History Mother Heart disease Surgical History History of kyphoplasty History of tonsillectomy History of thyroidectomy H/O: hysterectomy Social History adopted: No household members: family number of children: 3 current occupational status: disabled pets and animals: Yes sexually active: No Smoking Status: Former smoker quit date: 03/17/14 pack-years: 22 Tobacco: How many years used: 22 alcohol intake: never substance use type: does not use caffeine: Yes (2-3) Type: coffee Number of servings: 3 frequency: does not exercise do you feel safe at home: Yes Review of Systems (Anesthesia) ROS Narrative System reviewed and no additional complaints, except as documented.
--- NOTE | 2024-08-27 06:56 | PCM.HP.STD ---
HPI - General General Date of Admission: 08/27/24 Date of Service: 08/27/24 Chief Complaint: GERD and Screening Colonoscopy HPI Narrative 64 F who presents to the office today for establishment with [facility] for management of screening colonoscopies and complaints of constipation. Hx: tonsill-,thyroid-,hyster-ectomy; fmr smkr, no ETOH, caffeine ~3x/d, osteoporosis; last colonoscopy 5yrs ago- adenomas of unknown quantity removed. She reports smoking history, quit 15 yrs ago and was recently diagnosed with COPD. She reports daily BMs of small christy and usually only one fully complete BM per month. She has used Linzess in the past; states first month was great, then she began to have diarrhea urge incontinence from its daily use and stopped it. She has tried psyllium husk, polyethylene glycol QAM, dulcolax tablets, and magnesium citrate; Of these, mag citrate has worked the best for her. She reports heartburn and reflux with red sauces and abdominal pain with ice cream; she tolerates whole milk well. She denies other food sensitivities. She reports abdominal bloating, excessive gas, and very rarely hematochezia from a hemorrhoid. She denies difficulty chewing and swallowing, throat clearing, diarrhea-unless provoked by a medication, and melena. She reports that her mother dealt with chronic constipation and her brother from colon cancer. [facility] Medical History Wears dentures Wears glasses Cancer Anxiety Arthritis Ambulates with cane High cholesterol Easy bruising Injury of back History of IBS Gastric reflux Former smoker CPAP (continuous positive airway pressure) dependence Sleep apnea Hoarseness Shortness of breath on exertion Chronic cough Leg cramps History of echocardiogram History of stress test Cardiology follow-up encounter Ganglion, left wrist Abnormal EKG Arrhythmia Basal cell carcinoma Irritable bowel syndrome with constipation Fibroids Skin cancer Anemia Hypothyroidism Rheumatoid arthritis Osteoporosis GERD (gastroesophageal reflux disease) CPAP (continuous positive airway pressure) dependence COPD (chronic obstructive pulmonary disease) Migraines Hyperlipidemia Adult BMI 30.0-30.9 kg/sq m Obstructive sleep apnea Back pain Thyroid disease Shoulder pain Compression fracture of L5 lumbar vertebra Thyroid cancer Anxiety and depression Osteoarthritis Vitamin D deficiency Home Medications ?Medication ?Instructions ?Recorded ?Last Taken ?Type albuterol sulfate 90 mcg/actuation 2 puff inhalation PRN PRN Sob &/Or 09/07/18 08/26/24 History aerosol inhaler Wheezing magnesium 200 mg tablet 200 mg PO DAILY 07/29/23 08/26/24 History mecobalamin (vitamin B12) 1,000 1,000 mcg PO DAILY 07/29/23 08/26/24 History mcg lozenges vitamin D3 125 mcg (5,000 1 cap PO DAILY 07/29/23 08/26/24 History unit)-vitamin K2 180 mcg capsule (K2-D3 Max) Handicap placard #1 ea 10/29/23 Unknown Rx fluticasone furoate 200 1 inh inhalation DAILY copd #60 ea 04/13/24 08/26/24 Rx mcg-vilanterol 25 mcg/dose inhalation powder (Breo Ellipta) rosuvastatin 5 mg tablet 5 mg PO DAILY cholesterol #90 tabs 04/13/24 08/26/24 Rx tiotropium bromide 2.5 2 puff inhalation QDAY #4 grams 04/13/24 08/26/24 Rx mcg/actuation mist for inhalation (Spiriva Respimat) amitriptyline 50 mg tablet 50 mg PO QHS #90 tabs 04/20/24 Unknown Rx paroxetine HCl 40 mg tablet 40 mg PO QAM #90 tabs 04/20/24 08/26/24 Rx levothyroxine 25 mcg tablet 25 mcg PO QDAY #90 tabs 04/28/24 08/26/24 Rx pantoprazole 40 mg tablet,delayed 40 mg PO DAILY #90 tabs 06/17/24 Unknown Rx release peg 3350-electrolytes 236 240 ml PO Q10M #4,000 mL 06/17/24 08/26/24 Rx gram-22.74 gram-6.74 gram-5.86 gram solution (Golytely) denosumab 60 mg/mL subcutaneous 60 mg subcut Q6M 08/25/24 Unknown History syringe (Prolia) Allergy/AdvReac Type Severity Reaction Status Date / Time nickel Allergy Intermediate Rash Verified 08/25/24 14:56 Family History Mother Heart disease Surgical History History of kyphoplasty History of tonsillectomy History of thyroidectomy H/O: hysterectomy Social History adopted: No household members: family number of children: 3 current occupational status: disabled pets and animals: Yes sexually active: No Smoking Status: Former smoker quit date: 03/17/14 pack-years: 22 Tobacco: How many years used: 22 alcohol intake: never substance use type: does not use caffeine: Yes (2-3) Type: coffee Number of servings: 3 frequency: does not exercise do you feel safe at home: Yes ROS Constitutional Constitutional: Denies fatigue, fever(s), poor appetite, weight gain or weight loss Gastrointestinal Gastrointestinal: Denies belching, bloating, change in bowel habits, change in stool character, chewing difficulty, coffee ground emesis, constipation, cramping, diarrhea, dyspepsia, dysphagia, early satiety, excessive flatus, fecal incontinence, heartburn, hematemesis, hematochezia, hemorrhoids, loose stools, melena, nausea, odynophagia, rectal bleeding, tenesmus, vomiting or weight changes Vital Signs Vital Signs Vital Signs: 08/27/24 05:35 08/27/24 05:35 08/27/24 06:41 Temperature 97.9 F 97.9 F Temperature Source Temporal Pulse Rate 84 84 Respiratory Rate 16 16 Respiratory Pattern Normal Blood Pressure 118/72 118/72 Blood Pressure Mean 87 Blood Pressure Source Monitor Blood Pressure Position Semi-Fowlers Blood Pressure Location Left Arm Pulse Ox 97 97 Weight Weight: 176 lb 5.917 oz Body Mass Index (BMI) 30.2 Physical Exam Const alert, oriented x3, no apparent distress and healthy appearing General Appearance: cooperative GI normal to inspection, nondistended, normoactive bowel sounds, soft to palpation, non-tender and non-distended Percussion: normal to percussion Rectal Exam: deferred Assessment & Plan Assessment/Plan (1) Encounter for colonoscopy due to history of adenomatous colonic polyps: (2) GERD (gastroesophageal reflux disease): QUALIFIERS: Esophagitis presence: esophagitis presence not specified Qualified Code(s): K21.9 - Gastro-esophageal reflux disease without esophagitis PLAN: Assessment and Plan Assessment and Plan (1) Constipation: Status: Chronic Qualifiers: Constipation type: unspecified constipation type Qualified Code(s): K59.00 - Constipation, unspecified (2) GERD (gastroesophageal reflux disease): Status: Acute Qualifiers: Esophagitis presence: esophagitis presence not specified Qualified Code(s): K21.9 - Gastro-esophageal reflux disease without esophagitis (3) Encounter for colonoscopy due to history of adenomatous colonic polyps: Status: Acute Medications: New castor oil 15 mL PO ONCE 500 mL 0RF pantoprazole 40 mg PO DAILY 90 tabs 1RF peg 3350-electrolytes 236-22.74-6.74 -5.86 gram (Golytely) until fecal effluent is clear 240 mL PO Q10M 4,000 mL 0RF Reji PINA ORTEGA, is a 64 F who presents to the office today for establishment with [facility] for management of screening colonoscopies and complaints of constipation. Differential diagnoses include: CIC, pelvic floor dysfunction, IBS-C. Discussed care plan with her. pantoprazole 40mg PO daily, NO BID d/t osteoporosis schedule EGD to investigate GERD schedule colonoscopy, with Golytely, for screening castor oil 15ml PO daily, may slowly increase to 60ml if needed, for constipation office FU 2wks after scopes
--- NOTE | 2024-08-27 07:30 | PCM.POST.ANE ---
Anesthesia: Postop Eval I Current Vital Signs Temperature: 98.4 F Pulse Rate: 82 Blood Pressure: 83/57 Respiratory Rate: 16 Pulse Ox: 93 Oxygen Delivery Method: Room Air Assessment Airway patent: Yes Spontaneous unlabored respirations: Yes Mental status: Asleep nausea: No Vomiting: No Anesthesia Complication: No Fluid Hydration Crystalloid volume administer (ml): 400 Total IV fluid infused: 400 Progress Note Anesthesia document: Postop Eval 1 completed: Yes
--- NOTE | 2024-08-27 07:31 | OP.EGD_ITS ---
Patient Name: Little Rm Procedure Date: 08/27/2024 6:39 AM Date of : 1960 Age: 64 Procedure: Upper GI endoscopy Indications: Dysphagia, Heartburn, Suspected esophageal reflux Providers: Rodriguez Santos DO Referring MD: Vu Ramon Medicines: Monitored Anesthesia Care Patient Profile: This is a 64 year old female. Refer to note in patient chart for documentation of history and physical. Patient has symptoms of chronic abdominal distention, chronic epigastric abdominal pain and chronic heartburn. Complications: No immediate complications. Procedure: Pre-Anesthesia Assessment: - Prior to the procedure, a History and Physical was performed, and patient medications and allergies were reviewed. The patient is competent. The risks and benefits of the procedure and the sedation options and risks were discussed with the patient. All questions were answered and informed consent was obtained. Patient identification and proposed procedure were verified by the physician in the pre-procedure area. Mental Status Examination: alert and oriented. Airway Examination: normal oropharyngeal airway and neck mobility. Respiratory Examination: clear to auscultation. CV Examination: normal. Prophylactic Antibiotics: The patient does not require prophylactic antibiotics. Prior Anticoagulants: The patient has taken no anticoagulant or antiplatelet agents. ASA Grade Assessment: II - A patient with mild systemic disease. After reviewing the risks and benefits, the patient was deemed in satisfactory condition to undergo the procedure. The anesthesia plan was to use monitored anesthesia care (MAC). Immediately prior to administration of medications, the patient was re-assessed for adequacy to receive sedatives. The heart rate, respiratory rate, oxygen saturations, blood pressure, adequacy of pulmonary ventilation, and response to care were monitored throughout the procedure. The physical status of the patient was re-assessed after the procedure. After obtaining informed consent, the endoscope was passed under direct vision. Throughout the procedure, the patient's blood pressure, pulse, and oxygen saturations were monitored continuously. The Colonoscope was introduced through the mouth, and advanced to the second part of duodenum. The upper GI endoscopy was accomplished without difficulty. The patient tolerated the procedure well. Scope In: 7:11:58 AM Scope Out: 7:15:25 AM Total Procedure Duration Time 0 hours 3 minutes 27 seconds Findings: Abnormal motility was noted in the esophagus. The cricopharyngeus was abnormal. There are extra peristaltic waves in the esophageal body. The distal esophagus/lower esophageal sphincter is spastic, but gives up passage to the endoscope. Tertiary peristaltic waves are noted. Patchy mild inflammation characterized by erosions and erythema was found in the gastric body. Biopsies were taken with a cold forceps for histology. Verification of patient identification for the specimen was done. Biopsies were taken with a cold forceps for Helicobacter pylori testing. Verification of patient identification for the specimen was done. Estimated blood loss was minimal. Localized mildly erythematous mucosa without active bleeding and with no stigmata of bleeding was found in the duodenal bulb. Biopsies were taken with a cold forceps for histology. Verification of patient identification for the specimen was done. Estimated blood loss was minimal. A medium-sized hiatal hernia was present. Impression: - Abnormal esophageal motility. - Chronic gastritis. Biopsied. - Erythematous duodenopathy. Biopsied. Recommendation: - Discharge patient to home. - Resume previous diet. - Continue present medications. - Await pathology results. - Repeat upper endoscopy. Procedure Code(s): --- Professional --- 20136, Esophagogastroduodenoscopy, flexible, transoral; with biopsy, single or multiple CPT copyright 2021 [employer]. All rights reserved. The codes documented in this report are preliminary and upon instructional paraprofessional review may be revised to meet current compliance requirements. Rodriguez Santos DO 08/27/2024 7:30:13 AM This report has been signed electronically. Number of Addenda: 0 Note Initiated On: 08/27/2024 6:39 AM
--- NOTE | 2024-08-27 07:31 | OP.CCLET_ITS ---
08/27/2024 Vu Ramon Re : Upper GI endoscopy procedure for Little Rm Dear Dr. Ramon This procedure was performed on Tuesday, August 27, 2024. My impressions and recommendations are as follows: Impressions : - Abnormal esophageal motility. - Chronic gastritis. Biopsied. - Erythematous duodenopathy. Biopsied. Recommendations : - Discharge patient to home. - Resume previous diet. - Continue present medications. - Await pathology results. - Repeat upper endoscopy. My findings are described in the full procedure note, which is enclosed. If I can be of further assistance, please feel free to contact me at . Sincerely, Rodriguez Santos, 08/27/2024 7:30:13 AM This report has been signed electronically.
--- NOTE | 2024-08-27 07:32 | OP.CCLET_ITS ---
08/27/2024 Vu Ramon Re : Colonoscopy procedure for Little Rm Dear Dr. Ramon This procedure was performed on Tuesday, August 27, 2024. My impressions and recommendations are as follows: Impressions : - Stool in the entire examined colon. - No specimens collected. Recommendations : - Discharge patient to home. - Resume previous diet. - Continue present medications. - Repeat colonoscopy because the bowel preparation was poor. My findings are described in the full procedure note, which is enclosed. If I can be of further assistance, please feel free to contact me at . Sincerely, Rodriguez Santos, 08/27/2024 7:32:23 AM This report has been signed electronically.
--- NOTE | 2024-08-27 07:32 | OP.COLON_ITS ---
Patient Name: Little Rm Procedure Date: 08/27/2024 7:15 AM Date of : 1960 Age: 64 Procedure: Colonoscopy Indications: Screening for colorectal malignant neoplasm Providers: Rodriguez Santos DO Referring MD: Vu Ramon Medicines: Monitored Anesthesia Care Patient Profile: This is a 64 year old female. Refer to note in patient chart for documentation of history and physical. Patient has symptoms of chronic abdominal distention, chronic epigastric abdominal pain and chronic heartburn. Last Colonoscopy: several years ago. Complications: No immediate complications. Procedure: Pre-Anesthesia Assessment: - Prior to the procedure, a History and Physical was performed, and patient medications and allergies were reviewed. The patient is competent. The risks and benefits of the procedure and the sedation options and risks were discussed with the patient. All questions were answered and informed consent was obtained. Patient identification and proposed procedure were verified by the physician in the pre-procedure area. Mental Status Examination: alert and oriented. Airway Examination: normal oropharyngeal airway and neck mobility. Respiratory Examination: clear to auscultation. CV Examination: normal. Prophylactic Antibiotics: The patient does not require prophylactic antibiotics. Prior Anticoagulants: The patient has taken no anticoagulant or antiplatelet agents. ASA Grade Assessment: II - A patient with mild systemic disease. After reviewing the risks and benefits, the patient was deemed in satisfactory condition to undergo the procedure. The anesthesia plan was to use monitored anesthesia care (MAC). Immediately prior to administration of medications, the patient was re-assessed for adequacy to receive sedatives. The heart rate, respiratory rate, oxygen saturations, blood pressure, adequacy of pulmonary ventilation, and response to care were monitored throughout the procedure. The physical status of the patient was re-assessed after the procedure. After I obtained informed consent, the scope was passed under direct vision. Throughout the procedure, the patient's blood pressure, pulse, and oxygen saturations were monitored continuously. The Colonoscope was introduced through the anus and advanced to the sigmoid colon. The colonoscopy was performed without difficulty. The patient tolerated the procedure well. The quality of the bowel preparation was 90 percent obscured. Scope In: 7:17:28 AM Scope Out: 7:18:24 AM Total Procedure Duration Time 0 hours 0 minutes 56 seconds Findings: The perianal and digital rectal examinations were normal. Copious quantities of stool was found in the entire colon, precluding visualization. Impression: - Stool in the entire examined colon. - No specimens collected. Recommendation: - Discharge patient to home. - Resume previous diet. - Continue present medications. - Repeat colonoscopy because the bowel preparation was poor. Procedure Code(s): --- Professional --- 69165, 53, Colonoscopy, flexible; diagnostic, including collection of specimen(s) by brushing or washing, when performed (separate procedure) CPT copyright 2021 [employer]. All rights reserved. The codes documented in this report are preliminary and upon medical record coder review may be revised to meet current compliance requirements. Rodriguez Santos DO 08/27/2024 7:32:23 AM This report has been signed electronically. Number of Addenda: 0 Note Initiated On: 08/27/2024 7:15 AM
--- NOTE | 2024-08-27 09:20 | PCM.POSTANE2 ---
Anesthesia Postop Eval I Sum Postop Eval Completion status Anesthesia document: Postop Eval 1 completed: Yes Anesthesia Postop Eval I Summary Anesthesia Postop Eval I Summary: Anesthesia Postop Eval I: Assessment Summary Airway patent Yes 08/27/24 07:31 [email or web address] Spontaneous unlabored Yes 08/27/24 07:31 [email or web address] respirations Mental status Asleep 08/27/24 07:31 [email or web address] nausea No 08/27/24 07:31 [email or web address] Vomiting No 08/27/24 07:31 [email or web address] Anesthesia Postop Eval I: Fluid Summary Crystalloid volume administer 400 08/27/24 07:31 [email or web address] (ml) Colloids volume administered ( ml) Blood Product volume administered (ml) Total IV fluid infused 400 08/27/24 07:31 [email or web address] Anesthesia Postop Eval I: Summary Notes Anesthesia Complication No 08/27/24 07:31 [email or web address] Anesthesia Complication Comment: Post-operative progress note Anesthesia: Postop Eval II Evaluation Mental status: Awake Pain Level: 0 nausea: No Vomiting: No
== END 2024-08-27 08:08 | disposition home or self-care (01) ==
LOC: EN 05:17 → AC 05:18
PROVIDERS: PCP Family Medicine; Referring Provider Family Medicine; Visit Provider Internal Medicine Gastroenterology
PROC: 0DJD8ZZ Inspection of Lower Intestinal Tract, Via Natural or Artificial Opening Endoscopic (ICD-10-PCS; CPT 45378; principal; 2024-08-27 06:25)
DX: Z12.11 Encounter for screening for malignant neoplasm of colon (principal); M06.9 Rheumatoid arthritis, unspecified; J44.9 Chronic obstructive pulmonary disease, unspecified; K31.89 Other diseases of stomach and duodenum; K22.89 Other specified disease of esophagus; K58.1 Irritable bowel syndrome with constipation; K21.9 Gastro-esophageal reflux disease without esophagitis; K44.9 Diaphragmatic hernia without obstruction or gangrene; Z53.8 Procedure and treatment not carried out for other reasons; Z86.0101 Personal history of adenomatous and serrated colon polyps; F41.9 Anxiety disorder, unspecified; F32.A Depression, unspecified; E03.9 Hypothyroidism, unspecified; E55.9 Vitamin D deficiency, unspecified; E78.00 Pure hypercholesterolemia, unspecified; M81.0 Age-related osteoporosis without current pathological fracture; G47.33 Obstructive sleep apnea (adult) (pediatric); G43.909 Migraine, unspecified, not intractable, without status migrainosus; Z79.51 Long term (current) use of inhaled steroids; Z79.899 Other long term (current) drug therapy; Z79.890 Hormone replacement therapy; Z85.850 Personal history of malignant neoplasm of thyroid; Z87.891 Personal history of nicotine dependence
CPT/HCPCS: 43239; G0105; 88305; 88342; J2405

== ENCOUNTER 2024-10-05 13:38 | Emergency (ER) | payer MEDICARE, MEDICAID, SELFPAY ==
[2024-10-05 13:39] VITALS: BP 133/92; PULSE 95; RESP 18; TEMP 36.4; O2SAT 97
--- NOTE | 2024-10-05 14:25 | CT_ITS ---
EXAM: CT Lumbar Spine Without Intravenous Contrast CLINICAL INDICATION: PAIN TECHNIQUE: Axial computed tomography images of the lumbar spine without intravenous contrast. This CT exam was performed using one or more of the following dose reduction techniques: automated exposure control, adjustment of the mA and/or kV according to patient size, and/or use of iterative reconstruction technique. COMPARISON: No relevant prior studies available. FINDINGS: VERTEBRAE: Mild L5 and moderate L1 vertebral body compression deformity, likely chronic. Multilevel endplate degenerative change and disc disease of the lumbar spine. DISCS/SPINAL CANAL/NEURAL FORAMINA: See above. SOFT TISSUES: Unremarkable. CT/Spine Lumbar without Contrast IMPRESSION: 1. Mild L5 and moderate L1 vertebral body compression deformity, likely chroni c. 2. If symptoms persist, further evaluation with MRI is recommended. [facility]
--- NOTE | 2024-10-05 14:25 | CT_ITS ---
EXAM: CT Thoracic Spine Without Intravenous Contrast CLINICAL INDICATION: PAIN TECHNIQUE: Axial computed tomography images of the thoracic spine without intravenous contrast. This CT exam was performed using one or more of the following dose reduction techniques: automated exposure control, adjustment of the mA and/or kV according to patient size, and/or use of iterative reconstruction technique. COMPARISON: No relevant prior studies available. FINDINGS: VERTEBRAE: Moderate compression deformity of T8, T11 and T12 status post vertebroplasty. Moderate to severe compression deformity of T10 and T7 vertebral bodies. DISCS/SPINAL CANAL/NEURAL FORAMINA: No acute findings. No significant spinal canal stenosis. SOFT TISSUES: Unremarkable. CT/Spine Thoracic without Contras IMPRESSION: 1. If symptoms persist, further evaluation with MRI is recommended. 2. Multiple compression deformity as above, likely chronic. Reading [facility]
[2024-10-05] MEDS: Ketorolac 30 MG/ML Syringe IM (14:51)
--- NOTE | 2024-10-05 15:52 | ED.VIS.BACK ---
HPI History of Present Illness Chief Complaint: Back Informant: patient Narrative Narrative: History of osteopenia reports lower mid back pain worse over 2 days after sneezing. She states 2 years ago had a sneezing event fracture 7 vertebral's. She states she had kyphoplasty of those vertebral's in [place]. No pain down the legs. No loss of bowel or bladder control. Pain worse with movement. Took ibuprofen earlier this morning. She drove herself here. Had previously seen Dr. Jacobs pain management prior to moving to [place]. Prior similar symptoms: Yes PFSH PFS Medical History Wears dentures Wears glasses Cancer Anxiety Arthritis Ambulates with cane High cholesterol Easy bruising Injury of back History of IBS Gastric reflux Former smoker CPAP (continuous positive airway pressure) dependence Sleep apnea Hoarseness Shortness of breath on exertion Chronic cough Leg cramps History of echocardiogram History of stress test Cardiology follow-up encounter Ganglion, left wrist Abnormal EKG Arrhythmia Basal cell carcinoma Irritable bowel syndrome with constipation Fibroids Skin cancer Anemia Hypothyroidism Rheumatoid arthritis Osteoporosis GERD (gastroesophageal reflux disease) CPAP (continuous positive airway pressure) dependence COPD (chronic obstructive pulmonary disease) Migraines Hyperlipidemia Adult BMI 30.0-30.9 kg/sq m Obstructive sleep apnea Back pain Thyroid disease Shoulder pain Compression fracture of L5 lumbar vertebra Thyroid cancer Anxiety and depression Osteoarthritis Vitamin D deficiency Home Medications Medication Instructions Recorded Last Taken Type albuterol sulfate 90 mcg/actuation 2 puff inhalation PRN PRN Sob &/Or 09/07/18 08/26/24 History aerosol inhaler Wheezing magnesium 200 mg tablet 200 mg PO DAILY 07/29/23 08/26/24 History mecobalamin (vitamin B12) 1,000 1,000 mcg PO DAILY 07/29/23 08/26/24 History mcg lozenges vitamin D3 125 mcg (5,000 1 cap PO DAILY 07/29/23 08/26/24 History unit)-vitamin K2 180 mcg capsule (K2-D3 Max) Handicap placard #1 ea 10/29/23 Unknown Rx fluticasone furoate 200 1 inh inhalation DAILY copd #60 ea 04/13/24 08/26/24 Rx mcg-vilanterol 25 mcg/dose inhalation powder (Breo Ellipta) rosuvastatin 5 mg tablet 5 mg PO DAILY cholesterol #90 tabs 04/13/24 08/26/24 Rx tiotropium bromide 2.5 2 puff inhalation QDAY #4 grams 04/13/24 08/26/24 Rx mcg/actuation mist for inhalation (Spiriva Respimat) pantoprazole 40 mg tablet,delayed 40 mg PO DAILY #90 tabs 06/17/24 Unknown Rx release peg 3350-electrolytes 236 240 ml PO Q10M #4,000 mL 06/17/24 08/26/24 Rx gram-22.74 gram-6.74 gram-5.86 gram solution (Golytely) denosumab 60 mg/mL subcutaneous 60 mg subcut Q6M 08/25/24 Unknown History syringe (Prolia) amitriptyline 50 mg tablet 50 mg PO QHS #90 tabs 09/29/24 Unknown Rx paroxetine HCl 40 mg tablet 40 mg PO QAM #90 tabs 09/29/24 Unknown Rx levothyroxine 25 mcg tablet 25 mcg PO QDAY #90 tabs 10/04/24 Unknown Rx hydrocodone-acetaminophen 5-325mg 1 tab PO Q6H PRN PRN Pain 3 days 10/05/24 Unknown Rx 5mg-325mg #10 TABLETS Allergy/AdvReac Type Severity Reaction Status Date / Time nickel Allergy Intermediate Rash Verified 10/05/24 13:40 Family History Mother Heart disease Surgical History History of kyphoplasty History of tonsillectomy History of thyroidectomy H/O: hysterectomy Social History adopted: No household members: family number of children: 3 current occupational status: disabled pets and animals: Yes sexually active: No Smoking Status: Former smoker quit date: 03/17/14 pack-years: 22 Tobacco: How many years used: 22 alcohol intake: never substance use type: does not use caffeine: Yes (2-3) Type: coffee Number of servings: 3 frequency: does not exercise do you feel safe at home: Yes ROS ROS ED Constitutional Constitutional ED: Denies fever(s) Cardiovascular Cardiovascular: Denies chest pain Respiratory/Chest Respiratory/Chest: Denies cough Gastrointestinal Gastrointestinal: Denies diarrhea or vomiting Musculoskeletal Musculoskeletal: Reports back pain Integumentary Denies rash or wounds Neurologic Neurologic: Denies weakness EXAM Physical Exam Const Vital Signs: 10/05/24 13:39 10/05/24 16:31 Temperature 97.5 F L 97.8 F Temperature Source Oral Pulse Rate 95 83 Respiratory Rate 18 16 Blood Pressure 133/92 H 132/87 H Blood Pressure Mean 105 102 Pulse Ox 97 100 Oxygen Delivery Method Room Air Positive well nourished and well developed General Appearance ED: well developed and NAD HEENT Reports moist mucous membranes normocephalic and atraumatic Eyes General Eye ED: Yes normal appearance of both eyes Neck full ROM Chest Wall Chest: Negative for tenderness Resp normal respiratory effort and normal air movement Effort and Inspection: symmetric chest movement; Negative for respiratory distress Cardio regular rate, regular rhythm and no murmurs Peripheral Pulses: pulses 2+ throughout GI normal to inspection, nondistended, normoactive bowel sounds and non-tender Palpation: Negative for guarding or rebound tenderness present Back/Spine Back/Spine Narrative: Tender palpation mid thoracic and lower lumbar with no step-offs. Straight leg test negative bilaterally. Extremity normal to inspection General Extremety ED: Negative for edema or tenderness General Extremity: Negative for edema Neuro oriented x3 and no sensory deficits noted Sensorium / Orientation: awake and alert Skin no rashes or lesions noted and no wounds MDM MDM MDM Narrative Medical decision making narrative: Interventions / MDM: Differential diagnosis: Back pain, history of vertebral compression fracture,History of osteoporosis. Diagnosis considered but do not suspect: No cauda equina symptoms no radicular symptoms. My EKG interpretation: N/A Imaging independently reviewed and interpreted by myself: CT thoracic and lumbar spine. Old compression fractures T7-T8 T10, T11-T12 L1 and L5 with previous kyphoplasties of T8 T11 and T12. External documents reviewed: N/A Test considered but not ordered:N/A ED course: History osteopenia pain similar to fractures in the past from a cough. CT thoracic lumbar spine obtained. IV Toradol as she drove herself here. Results with chronic findings no new fractures. She will continue Motrin and short prescription for [place] to use as needed. She will be given follow-up with Dr. Jacobs. All questions were answered. Re-evaluation: stable Disposition discussed with patient/family/significant other: Patient Case discussed with consulting clinician: N/A This note was generated with [email or web address] dictation software. It may contain incorrect words, spelling, and punctuation that were not noted in checking the note before signing. Radiography Diagnostic Testing: Clinical Impression(s) from Imaging Studies Lumbar Spine CT 10/05/24 14:25 IMPRESSION: 1. Mild L5 and moderate L1 vertebral body compression deformity, likely chronic. 2. If symptoms persist, further evaluation with MRI is recommended. Reading Location: [facility] Thoracic Spine CT 10/05/24 14:25 IMPRESSION: 1. If symptoms persist, further evaluation with MRI is recommended. 2. Multiple compression deformity as above, likely chronic. Reading Location: [facility] Discharge Plan Triage Chief Complaint: Back ED Provider: Grady Guerrero Dx/Rx/DC Orders Clinical Impression: Back pain, History of fracture of vertebral column Instructions: ED Back Pain (Acute or Chronic) Prescriptions: New hydrocodone-acetaminophen 5-325 mg tablet 1 tab PO Q6H PRN PRN (Reason: Pain) 3 Days Qty: 10 0RF No Action mecobalamin (vitamin B12) 1,000 mcg lozenge 1,000 mcg PO DAILY Rx Instructions: allow to dissolve in mouth OR may chew lightly before swallowing K2-D3 Max 125 mcg (5,000 unit)-180 mcg capsule 1 cap PO DAILY magnesium 200 mg tablet 200 mg PO DAILY (DME) Handicap placard See Rx Instructions .Route .MEDSUPPLY Qty: 1 0RF Rx Instructions: Duration 5 years, Diagnosis, multiple spinal fractures pantoprazole 40 mg tablet,delayed release (DR/EC) 40 mg PO DAILY Qty: 90 1RF peg 3350-electrolytes [Golytely] 236-22.74-6.74 -5.86 gram recon soln 240 ml PO Q10M Qty: 4000 0RF Rx Instructions: until fecal effluent is clear albuterol sulfate 8.5 GM HFA aerosol inhaler 2 puff inhalation PRN PRN (Reason: Sob &/Or Wheezing) Patient Comments: Inhale 2 puffs three times daily. Prolia 60 mg/mL syringe 60 mg subcut Q6M Breo Ellipta 200-25 mcg/dose blister with device 1 inh inhalation DAILY Qty: 60 1RF rosuvastatin 5 mg tablet 5 mg PO DAILY Qty: 90 1RF Spiriva Respimat 2.5 mcg/actuation mist 2 puff inhalation QDAY Qty: 4 3RF paroxetine HCl 40 mg tablet 40 mg PO QAM Qty: 90 0RF amitriptyline 50 mg tablet 50 mg PO QHS Qty: 90 0RF levothyroxine 25 mcg tablet 25 mcg PO QDAY Qty: 90 1RF Primary Care Provider: Vu Ramon Referrals: Narciso Jacobs DO [Non-Staff] - 1 Week Vu Ramon DO [Primary Care Provider] - Activity Restrictions/Additional Instructions: CT thoracic and lumbar spine. He had previous kyphoplasty T8, T11 and T12. You have old compression fractures of T7 T10 L1 and L5. There are no new fractures noted. Continue Motrin. Use stronger pain medicines as needed may break in half. Follow-up with Dr. Jacobs as you have seen him in the past. Print Language: Finnish Disposition Disposition: Home, Self Care Discharge Date/Time: 10/05/24 16:32
[2024-10-05 16:31] VITALS: BP 132/87; PULSE 83; RESP 16; TEMP 36.6; O2SAT 100
== END 2024-10-05 16:32 | disposition home or self-care (01) ==
PROVIDERS: Emergency Provider Emergency Medicine; PCP Family Medicine; Visit Provider Emergency Medicine
DX: M54.50 Low back pain, unspecified (principal); M06.9 Rheumatoid arthritis, unspecified; J44.9 Chronic obstructive pulmonary disease, unspecified; M48.56XD Collapsed vertebra, not elsewhere classified, lumbar region, subsequent encounter for fracture with routine healing; M48.54XD Collapsed vertebra, not elsewhere classified, thoracic region, subsequent encounter for fracture with routine healing; E78.00 Pure hypercholesterolemia, unspecified; F41.9 Anxiety disorder, unspecified; K21.9 Gastro-esophageal reflux disease without esophagitis; E03.9 Hypothyroidism, unspecified; F32.A Depression, unspecified; E55.9 Vitamin D deficiency, unspecified; M81.0 Age-related osteoporosis without current pathological fracture; G47.33 Obstructive sleep apnea (adult) (pediatric); Z79.51 Long term (current) use of inhaled steroids; Z85.850 Personal history of malignant neoplasm of thyroid; Z98.890 Other specified postprocedural states; Z79.890 Hormone replacement therapy; Z79.899 Other long term (current) drug therapy; Z87.891 Personal history of nicotine dependence
CPT/HCPCS: 72128; 72131; 96372; 99282

== ENCOUNTER 2024-11-05 09:57 | Day surgery (SDC) | payer MEDICARE, MEDICAID, SELFPAY ==
[2024-11-05] VITALS (8 sets, daily range): BP systolic 100–123; BP diastolic 61–81; PULSE 87–98; RESP 16; TEMP 36.1–37.3; O2SAT 94–98; BMI 27.8
[2024-11-05] MEDS: Lactated Ringers 1,000 ML 15 ML IV (10:27)
--- NOTE | 2024-11-05 11:11 | PRE.ANES_ITS ---
ASA Classification* ASA Classification ASA Classification: 3 Assessment & Plan Anesthesia* Anesthesia Assessment Anesthesia Assessment: Discussed sedation and/or anesthesia options, risks, benefits, and alternatives with patient/parents/legal guardian/POA. Questions invited. The patient/parents/legal guardian/POA seems to understand and agrees to proceed with anesthesia plan. Reviewed the physical assessment, medical history, allergy history and patient home medications list prior to surgery/procedure/anesthetic and documented any changes. Performed airway and anesthesia risk assessments. Anesthesia Type Anesthesia Type: MAC History Source History Obtained from:: Patient and Chart Anesthesia Focused Assessment* Temperature: 99.1 F Pulse Rate: 98 Blood Pressure: 116/81 Respiratory Rate: 16 Pulse Ox: 96 Oxygen Delivery Method: Room Air Airway Assessment Mouth opens: >3 cm Mallampati Score: III Teeth Condition: Dentures (Patient has full upper and lower dentures. They will stay in.) Neck Range of motion (ROM): Limited ROM (Somewhat Decreased) Labs Anesthesia Preop lab: CBC WBC 5.3 K/mm3 (4.4-11.0) 06/08/24 16:06 06/08/24 RBC 4.78 M/mm3 (4.2-5.4) 06/08/24 16:06 06/08/24 Hgb 13.6 g/dL (12.0-15.0) 06/08/24 16:06 06/08/24 Hct 40.8 % (37-47) 06/08/24 16:06 06/08/24 Plt Count 264 K/mm3 (150-450) 06/08/24 16:06 06/08/24 CHEMISTRY Potassium 4.1 mmol/L (3.3-5.1) 06/08/24 16:06 06/08/24 Sodium 136 mmol/L (133-145) 06/08/24 16:06 06/08/24 Magnesium 2.1 mg/dL (1.6-2.6) 09/07/18 23:35 09/07/18 BUN 12 mg/dL (4-19) 06/08/24 16:06 06/08/24 Creatinine 0.80 mg/dL (0.70-1.20) 06/08/24 16:06 06/08/24 Glucose 86 mg/dL (70-99) 06/08/24 16:06 06/08/24 TSH 4.520 uIU/mL (0.300-4.200) H 06/08/24 16:06 COAG Pre-Assessment Diagnosis/Proposed Procedure Planned Operative Procedure(s): Colonoscopy with possible biopsy and/or polypectomy Anesthesia History 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 When Was Last Pacemaker Check QUESTION #4 FULL TEXT: You/Your Family Experience fever (hyperthermia) with Anesthesia Last Oral Intake Last Oral intake: Last Oral Intake NPO since 20:00 11/05/24 10:16 Meds taken in AM with sips of No 11/05/24 10:16 water? Meds patient instructed to take am of surgery PONV PONV - production reproduction manager: PONV - production reproduction manager Female Yes 11/05/24 10:16 HX of Motion Sickness No 11/05/24 10:16 HX of N/V After Surgery Yes 11/05/24 10:16 Non-Smoker Yes 11/05/24 10:16 Duration of Surgery greater No 11/05/24 10:16 than 60 minutes Number of Risk Factors 3 11/05/24 10:16 PONV Score Moderate Risk 11/05/24 10:16 Height & Weight Height & Weight: Anesthesia: Height & Weight Height 5 ft 5 in 11/05/24 10:16 Weight: 76 kg 11/05/24 10:16 Body Mass Index (BMI) 27.8 11/05/24 10:16 Respiratory Assessment Respiratory Assessment - production reproduction manager: Respiratory Tract Infection Hx - production reproduction manager Hx Respiratory Tract Infection No 11/05/24 10:16 STOP Sleep Apnea STOP Sleep Apnea - production reproduction manager: STOP Sleep Apnea - production reproduction manager Hx Hypertension No 11/05/24 10:16 Hx Sleep Apnea Yes 11/05/24 10:16 CPAP Yes: non compliant 11/05/24 10:16 BIPAP No 11/05/24 10:16 Do you snore loudly (louder than talking or can be heard Do you often feel tired/ fatigued/ sleepy during daytime? Has anyone observed you stop breathing during sleep? STOP Results Positive 11/05/24 10:16 QUESTION #5 FULL TEXT : Do you snore loudly (louder than talking or can be heard through closed doors)? 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 Specify any problems Hx of Preganancy in last 3 N/A 11/05/24 10:16 Months Nurse Filling Out Transfusion DDAVIS 11/05/24 10:16 & Questions: Date: 11/05/24 11/05/24 10:16 Time: 10:19 11/05/24 10:16 Patient unable to answer at this time (ie. confused, unrespo /Reproduction History /Reproductive History - production reproduction manager: /Reproductive Hx- production reproduction manager Hx Now Gestational Age (in weeks): EDC: Hx Hx Para Hx Section SAB No 11/05/24 10:16 Active Medications Active Medications: Current Medications Generic Name Dose Route Start Last Admin Trade Name Freq PRN Reason Stop Dose Admin Lactated Ringer's 1,000 mls @ 15 mls/hr 11/05/24 10:15 11/05/24 10:27 IV 15 mls/hr .Q48H DARREN Administration PFSH Medical History Wears dentures Wears glasses Cancer Anxiety Arthritis Ambulates with cane High cholesterol Easy bruising Injury of back History of IBS Gastric reflux Former smoker CPAP (continuous positive airway pressure) dependence Sleep apnea Hoarseness Shortness of breath on exertion Chronic cough Leg cramps History of echocardiogram History of stress test Cardiology follow-up encounter Ganglion, left wrist Abnormal EKG Arrhythmia Basal cell carcinoma Irritable bowel syndrome with constipation Fibroids Skin cancer Anemia Hypothyroidism Rheumatoid arthritis Osteoporosis GERD (gastroesophageal reflux disease) CPAP (continuous positive airway pressure) dependence COPD (chronic obstructive pulmonary disease) Migraines Hyperlipidemia Adult BMI 30.0-30.9 kg/sq m Obstructive sleep apnea Back pain Thyroid disease Shoulder pain Compression fracture of L5 lumbar vertebra Thyroid cancer Anxiety and depression Osteoarthritis Vitamin D deficiency Home Medications ?Medication ?Instructions ?Recorded ?Last Taken ?Type albuterol sulfate 90 mcg/actuation 2 puff inhalation P RN PRN Sob &/Or 09/07/18 11/04/24 History aerosol inhaler Wheezing magnesium 200 mg tablet 200 mg PO DAILY 07/29/23 History mecobalamin (vitamin B12) 1,000 1,000 mcg PO DAILY 11/04/24 History mcg lozenges vitamin D3 125 mcg (5,000 1 cap PO DAILY 07/29/2310/16 History unit)-vitamin K2 180 mcg capsule (K2-D3 Max) Handicap placard #1 ea 10/29/23 Unknown Rx fluticasone furoate 200 1 inh inhalation DAILY copd #60 ea 04/13/24 11/04/24 Rx mcg-vilanterol 25 mcg/dose inhalation powder (Breo Ellipta) rosuvastatin 5 mg tablet 5 mg PO DAILY cholesterol #9 0 tabs 04/13/24 11/04/24 Rx tiotropium bromide 2.5 2 puff inhalation QDAY #4 gr ams 04/13/24 11/04/24 Rx mcg/actuation mist for inhalation (Spiriva Respimat) pantoprazole 40 mg tablet,delayed 40 mg PO DAILY #90 t abs 06/17/24 11/04/24 Rx release amitriptyline 50 mg tablet 50 mg PO QHS #90 tabs 09/2911/04/24 Rx paroxetine HCl 40 mg tablet 40 mg PO QAM #90 tabs 09/1411/04/24 Rx levothyroxine 25 mcg tablet 25 mcg PO QDAY #90 tabs 11/04/24 Rx hydrocodone-acetaminophen 5-325mg 1 tab PO Q6H PRN PRN Pain 3 days 10/05/24 Unknown Rx 5mg-325mg #10 TABLETS metoclopramide HCl 5 mg tablet 5 mg PO QAC #2 tabs 11/04/24 Rx ondansetron HCl 4 mg tablet 4 mg PO Q8H PRN nausea and 10/06/24 11/04/24 Rx vomiting #30 tabs bisacodyl 5 mg tablet 10 mg (2 x 5 mg) PO ONCE #4 tabs 10/07/24 11/04/24 Rx peg 3350-electrolytes 236 240 ml PO Q10M #4,000 mL 11/04/24 Rx gram-22.74 gram-6.74 gram-5.86 gram solution (Golytely) ibuprofen 800 mg tablet 800 mg PO Q8H PRN pain #90 t abs 10/28/24 11/04/24 Rx denosumab 60 mg/mL subcutaneous 60 mg subcut [id number] #1 mL 11/03/24 Unknown Rx syringe (Prolia) Allergy/AdvReac Type Severity Reaction Status Date / Time nickel Allergy Intermediate Rash Verified 10/28/24 10:46 Family History Mother Heart disease Surgical History History of kyphoplasty History of tonsillectomy History of thyroidectomy H/O: hysterectomy Social History adopted: No household members: family number of children: 3 current occupational status: disabled pets and animals: Yes sexually active: No Smoking Status: Former smoker quit date: 03/17/14 pack-years: 22 Tobacco: How many years used: 22 alcohol intake: never substance use type: does not use caffeine: Yes (2-3) Type: coffee Number of servings: 3 frequency: does not exercise do you feel safe at home: Yes Review of Systems (Anesthesia) ROS Narrative System reviewed and no additional complaints, except as documented.
--- NOTE | 2024-11-05 12:04 | PCM.HP.STD ---
HPI - General General Date of Admission: 11/05/24 Date of Service: 11/05/24 Chief Complaint: constipation HPI Narrative 06.17.24 OV establishment with [facility] for management of screening colonoscopies and complaints of constipation. Hx: tonsill-,thyroid-,hyster-ectomy; fmr smkr, no ETOH, caffeine ~3x/d, osteoporosis; last colonoscopy 5yrs ago- adenomas of unknown quantity removed. She reports smoking history, quit 15 yrs ago and was recently diagnosed with COPD. She reports daily BMs of small christy and usually only one fully complete BM per month. She has used Linzess in the past; states first month was great, then she began to have diarrhea urge incontinence from its daily use and stopped it. She has tried psyllium husk, polyethylene glycol QAM, dulcolax tablets, and magnesium citrate; Of these, magnesium citrate has worked the best for her. She reports heartburn and reflux with red sauces and abdominal pain with ice cream; she tolerates whole milk well. She denies other food sensitivities. She reports abdominal bloating, excessive gas, and very rarely hematochezia from a hemorrhoid. She denies difficulty chewing and swallowing, throat clearing, diarrhea-unless provoked by a medication, and melena. She reports that her mother dealt with chronic constipation and her brother from colon cancer. 08.27.24 EGD - Abnormal esophageal motility. - Chronic gastritis. Biopsied. PATH: Oxyntic mucosa with features of reactive gastropathy. IHC negative for H.pylori organisms. - Erythematous duodenopathy. Biopsied. PATH: Normal villous architecture with [place] gland hyperplasia. Negative for increased intraepithelial lymphocytes. - medium hiatal hernia 08.27.24 Colonoscopy - Poor prep 10.05.24 OV Reviewed EGD findings. She stated defensively I followed directions! when I had asked how she took the bowel prep. She states that she has not had a BM for 2 weeks as of today. She denies feeling the need to do anything about it. I ate an entire head of cooked cabbage and I'm waiting for that to work. She said she tried taking castor oil once only and continues to take pantoprazole daily without complaints heartburn or difficulty swallowing. She now states that magnesium citrate doesn't work for her anymore, but denies having taken any since her last appointment. She states that she had tried Linzess in the past. Stated it didn't work for two days and then it made me lose control of my bowels while I was shopping on the third day, so I stopped taking it. It did the same thing when I tried it again. [facility] Medical History Wears dentures Wears glasses Cancer Anxiety Arthritis Ambulates with cane High cholesterol Easy bruising Injury of back History of IBS Gastric reflux Former smoker CPAP (continuous positive airway pressure) dependence Sleep apnea Hoarseness Shortness of breath on exertion Chronic cough Leg cramps History of echocardiogram History of stress test Cardiology follow-up encounter Ganglion, left wrist Abnormal EKG Arrhythmia Basal cell carcinoma Irritable bowel syndrome with constipation Fibroids Skin cancer Anemia Hypothyroidism Rheumatoid arthritis Osteoporosis GERD (gastroesophageal reflux disease) CPAP (continuous positive airway pressure) dependence COPD (chronic obstructive pulmonary disease) Migraines Hyperlipidemia Adult BMI 30.0-30.9 kg/sq m Obstructive sleep apnea Back pain Thyroid disease Shoulder pain Compression fracture of L5 lumbar vertebra Thyroid cancer Anxiety and depression Osteoarthritis Vitamin D deficiency Home Medications ?Medication ?Instructions ?Recorded ?Last Taken ?Type albuterol sulfate 90 mcg/actuation 2 puff inhalation PRN PRN Sob &/Or 09/07/18 11/04/24 History aerosol inhaler Wheezing magnesium 200 mg tablet 200 mg PO DAILY 07/29/23 11/04/24 History mecobalamin (vitamin B12) 1,000 1,000 mcg PO DAILY 07/29/23 11/04/24 History mcg lozenges vitamin D3 125 mcg (5,000 1 cap PO DAILY 07/29/23 11/04/24 History unit)-vitamin K2 180 mcg capsule (K2-D3 Max) Handicap placard #1 ea 10/29/23 Unknown Rx fluticasone furoate 200 1 inh inhalation DAILY copd #60 ea 04/13/24 11/04/24 Rx mcg-vilanterol 25 mcg/dose inhalation powder (Breo Ellipta) rosuvastatin 5 mg tablet 5 mg PO DAILY cholesterol #90 tabs 04/13/24 11/04/24 Rx tiotropium bromide 2.5 2 puff inhalation QDAY #4 grams 04/13/24 11/04/24 Rx mcg/actuation mist for inhalation (Spiriva Respimat) pantoprazole 40 mg tablet,delayed 40 mg PO DAILY #90 tabs 06/17/24 11/04/24 Rx release amitriptyline 50 mg tablet 50 mg PO QHS #90 tabs 09/29/24 11/04/24 Rx paroxetine HCl 40 mg tablet 40 mg PO QAM #90 tabs 09/29/24 11/04/24 Rx levothyroxine 25 mcg tablet 25 mcg PO QDAY #90 tabs 10/04/24 11/04/24 Rx hydrocodone-acetaminophen 5-325mg 1 tab PO Q6H PRN PRN Pain 3 days 10/05/24 Unknown Rx 5mg-325mg #10 TABLETS metoclopramide HCl 5 mg tablet 5 mg PO QAC #2 tabs 10/06/24 11/04/24 Rx ondansetron HCl 4 mg tablet 4 mg PO Q8H PRN nausea and 10/06/24 11/04/24 Rx vomiting #30 tabs bisacodyl 5 mg tablet 10 mg (2 x 5 mg) PO ONCE #4 tabs 10/07/24 11/04/24 Rx peg 3350-electrolytes 236 240 ml PO Q10M #4,000 mL 10/12/24 11/04/24 Rx gram-22.74 gram-6.74 gram-5.86 gram solution (Golytely) ibuprofen 800 mg tablet 800 mg PO Q8H PRN pain #90 tabs 10/28/24 11/04/24 Rx denosumab 60 mg/mL subcutaneous 60 mg subcut [id number] #1 mL 11/03/24 Unknown Rx syringe (Prolia) Allergy/AdvReac Type Severity Reaction Status Date / Time nickel Allergy Intermediate Rash Verified 10/28/24 10:46 Family History Mother Heart disease Surgical History History of kyphoplasty History of tonsillectomy History of thyroidectomy H/O: hysterectomy Social History adopted: No household members: family number of children: 3 current occupational status: disabled pets and animals: Yes sexually active: No Smoking Status: Former smoker quit date: 03/17/14 pack-years: 22 Tobacco: How many years used: 22 alcohol intake: never substance use type: does not use caffeine: Yes (2-3) Type: coffee Number of servings: 3 frequency: does not exercise do you feel safe at home: Yes ROS Constitutional Constitutional: Denies fatigue, fever(s), poor appetite, weight gain or weight loss Gastrointestinal Gastrointestinal: Denies belching, bloating, change in bowel habits, change in stool character, chewing difficulty, coffee ground emesis, constipation, cramping, diarrhea, dyspepsia, dysphagia, early satiety, excessive flatus, fecal incontinence, heartburn, hematemesis, hematochezia, hemorrhoids, loose stools, melena, nausea, odynophagia, rectal bleeding, tenesmus, vomiting or weight changes Vital Signs Vital Signs Vital Signs: 11/05/24 10:16 11/05/24 10:16 11/05/24 11:22 Temperature 99.1 F 99.1 F Temperature Source Temporal Pulse Rate 98 98 Respiratory Rate 16 16 Respiratory Pattern Normal Blood Pressure 116/81 H 116/81 H Blood Pressure Mean 92 Blood Pressure Source Monitor Blood Pressure Position Semi-Fowlers Blood Pressure Location Right Arm Pulse Ox 96 96 Oxygen Delivery Method Room Air Room Air Weight Weight: 167 lb 8.821 oz Body Mass Index (BMI) 27.8 Physical Exam Const alert, oriented x3, no apparent distress and healthy appearing General Appearance: cooperative GI normal to inspection, nondistended, normoactive bowel sounds, soft to palpation, non-tender and non-distended Percussion: normal to percussion Rectal Exam: deferred Assessment & Plan Assessment/Plan (1) Constipation: QUALIFIERS: Constipation type: unspecified constipation type Qualified Code(s): K59.00 - Constipation, unspecified (2) Encounter for colonoscopy due to history of adenomatous colonic polyps: PLAN: Assessment and Plan Assessment and Plan (1) GERD (gastroesophageal reflux disease): Status: Chronic Qualifiers: Esophagitis presence: esophagitis presence not specified Qualified Code(s): K21.9 - Gastro-esophageal reflux disease without esophagitis (2) Irritable bowel syndrome with constipation: Status: Chronic Medications: New peg 3350-electrolytes 236-22.74-6.74 -5.86 gram (Golytely) Take on 11/16/24, until fecal effluent is clear 240 mL PO Q10M 4,000 mL 0RF ondansetron HCl take with bowel prep 4 mg PO Q8H PRN 30 tabs 0RF nausea and vomiting bisacodyl Take 10mg(2 tabs) on 11/14 and 09/14 at noon both days. 10 mg (2 x 5 mg) PO ONCE 4 tabs 0RF metoclopramide HCl Take on 11/14 5mg (1 tab) at 0800 and 5mg (1 tab) at 1700. 5 mg PO QAC 2 tabs 0RF Changed From peg 3350-electrolytes 236-22.74-6.74 -5.86 gram (Golytely) until fecal effluent is clear 240 mL PO Q10M 4,000 mL 0RF To peg 3350-electrolytes 236-22.74-6.74 -5.86 gram (Golytely) Take on 11/15/24, until fecal effluent is clear 240 mL PO Q10M 4,000 mL 0RF Reji PINA ORTEGA, is a 64 F who presents to the office today for FU. Reviewed EGD results. At end of OV, she asked for directions to the ER to get her back pain investigated. continue pantoprazole 40mg PO daily Repeat colonoscopy - scheduled for Friday, 9.3.25 extended bowel prep: Friday, 11.14.25 - Reglan 5mg at 0800, 2 Dulcolax tabs at noon, and Reglan 5mg at 1700, full liquid diet Friday, 9.1.25 - Golytely per instructions and 2 Dulcolax tabs at noon, full liquid diet Friday, 9.2.25 - Golytely prep, clear liquid diet
--- NOTE | 2024-11-05 12:15 | COLBX_PTH ---
PATIENT: PINA ORTEGA LOC: EN U#:[id number] AGE/SX: 64/F ROOM: RE11/05/[address]: Dr. Rodriguez Santos DO : 1960 BED: DIS: 11/05/2024 SPEC #: [id number] RECD: 11/05/24 13:26 STATUS: [place] RECortez #: [id number] JAMILA: 11/05/24 12:[address]: Rodriguez Santos DEPT: SURGICAL PATHOLOGY RECD BY: Eduin Cates ENTERED: 11/05/24 14:28 SP TYPE: COLON BX OTHR DR: Dr. Vu Ramon DO Tissues: A - COLON BIOPSY Procedures: Surgery Specimen Level IV HEADER OPERATION: Colonoscopy with biopsy and tattoo PRE-OP DIAGNOSIS: Irritable bowel syndrome with constipation TISSUE SUBMITTED: A- Hepatic flexure polyp biopsy MICROSCOPIC DIAGNOSIS A. Colon, hepatic flexure, polyp, biopsy: Tubular adenoma. MICROSCOPIC DESCRIPTION Slides are reviewed. GROSS DESCRIPTION A. Received in fixative is one container labeled with the patient's name and designated Hepatic flexure polyp biopsy. The specimen consists of multiple irregular fragments of light jones soft tissue that in aggregate measure 1.4 x 0.4 x 0.1 cm. The specimen is totally submitted in one cassette. CO 11/05/2024 CPT:[id number]
--- NOTE | 2024-11-05 12:47 | PCM.POST.ANE ---
Anesthesia: Postop Eval I Current Vital Signs Temperature: 97 F Pulse Rate: 95 Blood Pressure: 100/71 Respiratory Rate: 16 Pulse Ox: 98 Oxygen Delivery Method: Room Air Assessment Airway patent: Yes Spontaneous unlabored respirations: Yes Mental status: Awake and Calm nausea: No Vomiting: No Anesthesia Complication: No Fluid Hydration Crystalloid volume administer (ml): 400 Total IV fluid infused: 400 Progress Note Anesthesia document: Postop Eval 1 completed: Yes
--- NOTE | 2024-11-05 13:02 | OP.PROVAT_ITS ---
11/05/2024 Vu Ramon Re : Colonoscopy procedure for [place] Rm Dear Dr. Ramon This procedure was performed on Tuesday, November 05, 2024. My impressions and recommendations are as follows: Impressions : - One 20 mm polyp at the hepatic flexure. Biopsied. Injected. - Diverticulosis in the recto-sigmoid colon, in the sigmoid colon and in the descending colon. - Stool in the recto-sigmoid colon, in the sigmoid colon and in the descending colon. Recommendations : - Discharge patient to home. - Resume previous diet. - Continue present medications. - Await pathology results. - Repeat colonoscopy for surveillance based on pathology results. My findings are described in the full procedure note, which is enclosed. If I can be of further assistance, please feel free to contact me at . Sincerely, Rodriguez Santos, 11/05/2024 1:01:19 PM This report has been signed electronically.
--- NOTE | 2024-11-05 13:02 | OP.COLON_ITS ---
Patient Name: Little Rm Procedure Date: 11/05/2024 12:15 PM Date of : 1960 Age: 64 Procedure: Colonoscopy Indications: Screening for colorectal malignant neoplasm Providers: Rodriguez Santos DO Medicines: Monitored Anesthesia Care Patient Profile: This is a 64 year old female. Refer to note in patient chart for documentation of history and physical. Last Colonoscopy: several years ago. Complications: No immediate complications. Procedure: Pre-Anesthesia Assessment: - Prior to the procedure, a History and Physical was performed, and patient medications and allergies were reviewed. The patient is competent. The risks and benefits of the procedure and the sedation options and risks were discussed with the patient. All questions were answered and informed consent was obtained. Patient identification and proposed procedure were verified by the physician in the pre-procedure area. Mental Status Examination: alert and oriented. Airway Examination: normal oropharyngeal airway and neck mobility. Respiratory Examination: clear to auscultation. CV Examination: normal. Prophylactic Antibiotics: The patient does not require prophylactic antibiotics. Prior Anticoagulants: The patient has taken no anticoagulant or antiplatelet agents except for NSAID medication. ASA Grade Assessment: II - A patient with mild systemic disease. After reviewing the risks and benefits, the patient was deemed in satisfactory condition to undergo the procedure. The anesthesia plan was to use monitored anesthesia care (MAC). Immediately prior to administration of medications, the patient was re-assessed for adequacy to receive sedatives. The heart rate, respiratory rate, oxygen saturations, blood pressure, adequacy of pulmonary ventilation, and response to care were monitored throughout the procedure. The physical status of the patient was re-assessed after the procedure. After I obtained informed consent, the scope was passed under direct vision. Throughout the procedure, the patient's blood pressure, pulse, and oxygen saturations were monitored continuously. The colonoscope was introduced through the anus and advanced to the cecum, identified by appendiceal orifice and ileocecal valve. The colonoscopy was performed without difficulty. The patient tolerated the procedure well. The quality of the bowel preparation was adequate. The ileocecal valve, appendiceal orifice, and rectum were photographed. Scope In: 12:24:28 PM Scope Withdrawal Time 0 hours 14 minutes 20 seconds Scope Out: 12:45:24 PM Total Procedure Duration Time 0 hours 20 minutes 56 seconds Findings: The perianal and digital rectal examinations were normal. A 20 mm polyp was found in the hepatic flexure. The polyp was flat. Biopsies were taken with a cold forceps for histology. Verification of patient identification for the specimen was done. Estimated blood loss was minimal. Area was successfully injected with 5 mL Emilie ink for tattooing. Estimated blood loss was minimal. Multiple small and large-mouthed diverticula were found in the recto-sigmoid colon, sigmoid colon and descending colon. Stool was found in the recto-sigmoid colon, in the sigmoid colon and in the descending colon. Impression: - One 20 mm polyp at the hepatic flexure. Biopsied. Injected. - Diverticulosis in the recto-sigmoid colon, in the sigmoid colon and in the descending colon. - Stool in the recto-sigmoid colon, in the sigmoid colon and in the descending colon. Recommendation: - Discharge patient to home. - Resume previous diet. - Continue present medications. - Await pathology results. - Repeat colonoscopy for surveillance based on pathology results. Procedure Code(s): --- Professional --- 54238, Colonoscopy, flexible; with biopsy, single or multiple 84310, Colonoscopy, flexible; with directed submucosal injection(s), any substance CPT copyright 2021 [employer]. All rights reserved. The codes documented in this report are preliminary and upon technical business systems analyst review may be revised to meet current compliance requirements. Rodriguez Santos DO 11/05/2024 1:01:19 PM This report has been signed electronically. Number of Addenda: 0 Note Initiated On: 11/05/2024 12:15 PM
== END 2024-11-05 13:29 | disposition home or self-care (01) ==
LOC: EN 09:58 → AC 10:00
PROVIDERS: PCP Family Medicine; Referring Provider Family Medicine; Visit Provider Internal Medicine Gastroenterology
PROC: 0DJD8ZZ Inspection of Lower Intestinal Tract, Via Natural or Artificial Opening Endoscopic (ICD-10-PCS; CPT 45378; principal; 2024-11-05 12:10)
DX: D12.3 Benign neoplasm of transverse colon (principal); J44.9 Chronic obstructive pulmonary disease, unspecified; K21.9 Gastro-esophageal reflux disease without esophagitis; K29.50 Unspecified chronic gastritis without bleeding; Z90.710 Acquired absence of both cervix and uterus; Z87.891 Personal history of nicotine dependence; E78.00 Pure hypercholesterolemia, unspecified; K57.30 Diverticulosis of large intestine without perforation or abscess without bleeding; Z86.0100 Personal history of colon polyps, unspecified; K44.9 Diaphragmatic hernia without obstruction or gangrene; K58.1 Irritable bowel syndrome with constipation; Z80.0 Family history of malignant neoplasm of digestive organs
CPT/HCPCS: 45380; 45381; 88305; A4648

== ENCOUNTER → 2025-01-20 | Outpatient (CLI) | payer MEDICARE, MEDICAID, SELFPAY ==
[2025-01-20 13:49] LABS: AST(SGOT) 20 U/L (<=31); Alanine Aminotransfer ALT/SGPT 12 U/L (<=34); Albumin, Serum 4.3 g/dL (3.4-4.8); Alkaline Phosphatase 90 U/L (35-104); Anion Gap 9 (5-15); BUN 10 mg/dL (4-19); BUN/Creat Ratio 14.8 RATIO (10-20); Calcium,Total 9.2 mg/dL (7.6-11.0); Carbon Dioxide 25.5 mmol/L (21.0-32.0); Chloride 106 mmol/L (98-108); Cholesterol 214 mg/dL (<=200); Globulin 2.3 g/dL (2.2-4.2); Glucose 85 mg/dL (70-99); Low Density Lipoprotein Calc. 143 mg/dL; Potassium 4.0 mmol/L (3.3-5.1); Triglycerides 101 mg/dL; Very Low Density Lipoprotein 20 mg/dL (5-40); cholesterol:hdl ratio screen 4.02
== END | disposition home or self-care (01) ==
LOC: LAB 11:53
PROVIDERS: PCP Family Medicine; Referring Provider Physician Assistant Medical; Visit Provider Physician Assistant Medical
DX: E78.5 Hyperlipidemia, unspecified (principal)
CPT/HCPCS: 36415; 80053; 80061

== ENCOUNTER → 2025-02-04 | Outpatient (CLI) | payer MEDICARE, MEDICAID, SELFPAY | END | disposition home or self-care (01) | LOC: MTLAB 15:28 | PROVIDERS: PCP Family Medicine; Referring Provider Nurse Practitioner Family; Visit Provider Nurse Practitioner Family | DX: E07.9 Disorder of thyroid, unspecified (principal) | CPT/HCPCS: 36415; 84443 ==